=== PATIENT | female | born 1980 | race Caucasian/White ===

== ENCOUNTER → 2017-07-09 10:00 | Outpatient (CLI) | payer BC, SELFPAY ==
--- NOTE | 2017-07-09 08:45 | BRBX_PTH ---
PATIENT: YESENIA LAND LOC: [facility] U#:[id number] AGE/SX: 44/F ROOM: RE07/09/[address]: Dr. Joseph Zabala MD : 1980 BED: DIS: SPEC #: [id number] RECD: 07/09/17 09:44 STATUS: STAR EMILY #: [id number] MAUREEN: 07/09/17 08:[address]: Joseph Zabala DEPT: SURGICAL PATHOLOGY RECD BY: Alexsander Dominique ENTERED: 07/12/17 11:15 SP TYPE: BREAST BX OTHR DR: Dr. Danny Espinoza MD Tissues: Right breast, NOS Procedures: Surgery Specimen Level IV HEADER OPERATION: Ultrasound-guided needle core biopsy of right breast PRE-OP DIAGNOSIS: Abnormal mammogram of right breast R92.8 TISSUE SUBMITTED: Right breast needle core biopsy ISCHEMIC TIME: <30 seconds FIXATION TIME: 82.5 hours MICROSCOPIC DIAGNOSIS Right breast, ultrasound-guided needle core biopsy: Hyalinize fibroadenoma. Negative for atypia or malignancy. MULUGETA:kulwant 07/13/17 COMMENT Please make reference to previous specimen ([id number]) right breast tissue, core biopsy with diagnosis of fibroadenoma with focal fibrocystic changes. MICROSCOPIC DESCRIPTION Slides are reviewed. GROSS DESCRIPTION Received in fixative is one container labeled with the patient's name and designated right breast biopsy. The specimen consists of two elongated fragments of ford-yellow fibroadipose tissue that in aggregate measure 1.2 x 0.2 x 0.1 cm. The entire specimen is submitted in one cassette. / MULUGETA:kulwant 07/12/17 TC:1 CPT: 71127
== END ==
PROVIDERS: Family Provider Family Medicine; PCP Family Medicine; Visit Provider Surgery
DX: R92.8 Other abnormal and inconclusive findings on diagnostic imaging of breast (principal)
CPT/HCPCS: 88305

== ENCOUNTER → 2017-07-14 12:05 | Outpatient (CLI) | payer BC, SELFPAY ==
--- NOTE | 2017-07-14 12:07 | US_ITS ---
ULTRASOUND GUIDED CORE BIOPSY REASON FOR EXAM: Female, 36 years old. Ultrasound guided biopsy of the 1.1 cm hypoechoic nodule at the 11:00 position the breast at 5 cm from nipple. COMPARISON: None. TECHNIQUE: (All elements of maximal sterile barrier technique followed, including US elements as applicable) Under direct sonographic guidance, the surgeon performed 3 core biopsies of the hypoechoic nodule at 11:00 position the breast at 5 cm from nipple. US/US Breast Biopsy 1st Lesion IMPRESSION: Ultrasound guided core biopsy of a mass in the RIGHT breast at the 11:00 o'clock position breast at 5 cm from nipple without complication. Electronically Signed: Sharan Beach MD at 13:39 EDT Tel [phone], Service support ,
--- NOTE | 2017-07-14 12:30 | BRBX_PTH ---
PATIENT: YESENIA LAND LOC: [facility] U#:[id number] AGE/SX: 44/F ROOM: RE07/14/[address]: Dr. Joseph Zabala MD : 1980 BED: DIS: SPEC #: [id number] RECD: 07/14/17 12:30 STATUS: STAR EMILY #: [id number] MAUREEN: 07/14/17 12:[address]: Joseph Zabala DEPT: SURGICAL PATHOLOGY RECD BY: Petey Abdi ENTERED: 07/14/17 13:01 SP TYPE: BREAST BX OT DR: No Primary Care Phys Tissues: Right breast, NOS Procedures: Surgery Specimen Level IV HEADER OPERATION: Right breast ultrasound-guided biopsy PRE-OP DIAGNOSIS: Right breast lump TISSUE SUBMITTED: Right breast core tissue ISCHEMIC TIME: 1 minute FIXATION TIME: 7 hours MICROSCOPIC DIAGNOSIS Right breast lump, ultrasound-guided core biopsy: Fibroadenoma. AM:kulwant 6/1/18 MICROSCOPIC DESCRIPTION Slides are reviewed. GROSS DESCRIPTION Received in fixative is one container labeled with the patient's name and designated right breast biopsy. The specimen consists of multiple elongated fragments of ford-yellow fibroadipose tissue that in aggregate measure 1.2 x 0.5 x 0.1 cm. The entire specimen is submitted in one cassette. / SJ:rg 07/14/17 TC:5 CPT: 07528
--- NOTE | 2017-07-14 15:44 | PCM.OPRPT ---
Problem List (1) Abnormal mammogram of right breast Status: Acute Report of Operation Date of Procedure: 07/14/17 Pre-Operative Diagnosis: r92.8 abnormal mammogram the right breast Post-Operative Diagnosis: Same Surgery/Procedure Performed:: 38243 ultrasound-guided needle core biopsy of abnormal mammogram to right breast Type of Anesthesia:: Local Description of Procedure: Patient was brought into the ultrasound room. The right breast was ultrasound and the lesion was identified at the 11 o'clock position. The breast was prepped with chlorhexidine. 1% lidocaine plain was injected. A skin pham was made. Local was injected down to the lesion. Under ultrasound guidance 3 needle core biopsies were obtained of this lesion. Under ultrasound guidance a small titanium clip was placed. Sterile dressings were applied. Patient tolerated the procedure well. - Admit VTE Documentation VTE Present on Admission: No VTE Mechan Device Prophylaxis: None VTE Pharm Prophylaxis ordered?: No Reason prophylaxis not ordered:: Treatment Not Indicated
--- NOTE | 2017-07-14 15:47 | OP.PCM_ITS ---
Problem List (1) Abnormal mammogram of right breast Status: Acute Report of Operation Date of Procedure: 07/14/17 Pre-Operative Diagnosis: r92.8 abnormal mammogram the right breast Post-Operative Diagnosis: Same Surgery/Procedure Performed:: [id number] ultrasound-guided needle core biopsy of abnormal mammogram to right breast Type of Anesthesia:: Local Description of Procedure: Patient was brought into the ultrasound room. The right breast was ultrasound and the lesion was identified at the 11 o'clock position. The breast was prepped with chlorhexidine. 1% lidocaine plain was injected. A skin pham was made. Local was injected down to the lesion. Under ultrasound guidance 3 needle core biopsies were obtained of this lesion. Under ultrasound guidance a small titanium clip was placed. Sterile dressings were applied. Patient tolerated the procedure well. - Admit VTE Documentation VTE Present on Admission: No VTE Mechan Device Prophylaxis: None VTE Pharm Prophylaxis ordered?: No Reason prophylaxis not ordered:: Treatment Not Indicated
== END ==
PROVIDERS: Visit Provider Surgery
DX: D24.1 Benign neoplasm of right breast (principal)
CPT/HCPCS: 19083; 88305

== ENCOUNTER 2017-10-01 15:21 | Emergency (ER) | payer BC, SELFPAY ==
[2017-10-01 15:22] VITALS: BP 132/83; PULSE 128; RESP 18; TEMP 37.3; O2SAT 100; BMI 23.6
--- NOTE | 2017-10-01 15:49 | ED.VISSUMM ---
- ER Visit Summary Date of Service: 10/01/17 Chief Complaint: Right lower back pain History of Present Illness: The patient is a 36 F presenting with right lower back pain radiating down the back of her right thigh for the past 6 days. It started when she twisted to the side while washing dishes. She denies falls or direct trauma. She has no bowel bladder dysfunction or groin paresthesias. No lower extremity weakness or numbness. It is worse when she bends forward and better when she lays flat. Denies previous similar symptoms. She went to the urgent care earlier this week and was given a Medrol Dosepak and Flexeril. She took her last dose of Medrol today. This did help but the pain was somewhat worse today as she was weaning off of the Medrol. She denies fevers or history of back surgery. No recent weight loss. Physical Examination: Vitals are within normal limits except for slight tachycardia on arrival. This is improved on my examination. She does appear somewhat uncomfortable due to pain. She has paraspinal tenderness on the right in the lumbar region but no midline tenderness, erythema, or fluctuance. She has no overlying rash. She has normal strength and sensation in both lower extremities. Babinski's is negative. There is no clonus. Reflexes are normal and symmetric. Test Results: None performed Emergency Department Course and Treatment: She was given intramuscular Toradol and Norflex. She was improved on reexamination. She has no midline tenderness, erythema, fluctuance, fever, night sweats, or other signs/risk factors for paraspinal/epidural abscess. No evidence of cauda equina syndrome. She can stand on her toes and has no weakness in the lower extremities or groin paresthesias. I do not feel she needs an emergent MRI but I do feel that an outpatient MRI should be performed this week or next week if she is not improving. Her symptoms sound consistent with sciatica and she has no risk factors for more serious pathology. No pain in her thoracic region, chest pain, or other concerning symptoms. I will prescribe her Mobic and Zanaflex and she will use a heating pad as well. She will call her doctor on Tuesday morning and return to the emergency department if worse before then Treatment Plan: Disposition: Home stable condition Impression: Initial encounter right lumbar back pain with right-sided sciatica This note was generated with Dragon dictation software. It may contain incorrect words, spelling, and punctuation that were not noted in review of the chart prior to signing ED Disposition - Plan for ED Patient: Chief Complaint: Back Instructions: ED Sciatica Prescriptions: Meloxicam [Mobic] 15 mg PO DAILY #30 tablet Tizanidine HCl [Zanaflex] 4 mg PO TID #30 tablet Referrals: Danny Espinoza MD [NON-STAFF] -
== END 2017-10-01 16:52 | disposition home or self-care (01) ==
PROVIDERS: Emergency Provider Emergency Medicine
DX: M54.41 Lumbago with sciatica, right side (principal)
CPT/HCPCS: 99282

== ENCOUNTER → 2019-03-06 11:06 | Outpatient (CLI) | payer BC, SELFPAY ==
--- NOTE | 2019-03-06 11:17 | RAD_ITS ---
HISTORY: NECK AND LEFT SHOULDER PAIN TECHNIQUE: Cervical spine 3 views Number of images including paperwork: 3 COMPARISON: None FINDINGS: VERTEBRAE: No acute fracture. VERTEBRAL ALIGNMENT: No traumatic subluxation. DISKS AND JOINTS: Mild to moderate disc space narrowing at C5-6. SOFT TISSUES: Unremarkable paraspinous soft tissues. RAD/Cerv Spine 2 or 3 Views IMPRESSION: 1. No acute osseous abnormality. 2. Mild to moderate discogenic degenerative changes at C5-6. at 0656 Reported and signed by: Gladis Tyler MD Electronically Signed: Gladis Tyler MD at 6:56 EST Tel , Service support ,
== END ==
PROVIDERS: Referring Provider Nurse Practitioner; Visit Provider Nurse Practitioner
DX: R20.2 Paresthesia of skin (principal)
CPT/HCPCS: 72040

== ENCOUNTER 2019-04-05 09:00 | Outpatient (RCR) | payer BC, SELFPAY ==
--- NOTE | 2019-03-21 13:06 | HP.PTEVAL ---
Patient's Visit Information YESENIA LAND is a 38 year old F referred to Physical Therapy by [facility] with a diagnosis of CERVICAL RADICULOPATHY. Date of Evaluation: 03/21/19 Physical Therapist: Mike Haywood, PT, Cert MDT, OCS - Visit Plan Frequency: 2x /Week Duration: 4 Weeks Plan: PT INTERVENTIONS MANUAL THERAPY TRACTION,CP,MECKENZIE EX'S,POSTURAL EX'S - Subjective Findings: This 38 y/o female presents to physical therapy cervical radiculopathy. Pateint developed right shoulder pain with parathesia in fingers about 6 weeks ago. Patient stated pain intermittant with parathesia/tingling got worse. Patient repports symptoms worse after coughing 6 weeks ago. Pain located left cervical shoulder tricep to unlar forearm to fingers . Patient had x-rays C5-6 DDD ,melocicam. Patient stmptoms affects sleeping. C/O BE ,denies tinnnutus/nausea. 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 Patient pain affects job demands ,ADLS' and housework . Patient symptoms affects QOL. SOCIAL: 2 childer. VOCATION: [employer] - Pain Left Neck Pain Intensity (Out of 10): 2 Pain Intensity Range: 10 Left Shoulder Pain Intensity (Out of 10): 2 Pain Intensity Range: 10 - Objective POSTURE: mild foward posture. NEURO: C/O parathesia/tingling left arm,reflexes C5-6-7 2/3. PALPATION: unnremarkable. AROM: BUE WFL pain ER left shoulder. MMT: grossly 4/5. 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 CERVICAL ROM: flexion min loss,extension mod loss pain ,retraction min/mod loss pain ,protrusion min loss,rotation min/mod loss ,lateral flexion mod loss pain - Special Tests C/S Radiculapathy - Left Upper limb tension test: Positive C/S Radiculapathy - Right Upper limb tension test: Negative C/S Radiculapathy - Left Spurlings: Positive C/S Radiculapathy - Right Spurlings: Negative C/S Radiculapathy - Left Cervical distraction: Negative C/S Radiculapathy - Right Cervical distraction: Negative Sharp Herman: Negative Vertebral Artery Test: Negative Alar Ligament Test: Negative Cervical Sitting: Protrusion - Mechanical Response: No effect Cervical Sitting: Protrusion - Symptoms During Testing: Increases Cervical Sitting: Protrusion - Symptoms After Testing: Worse Comments:: arm Cervical Sitting: Retraction - Mechanical Response: No effect Cervical Sitting: Retraction - Symptoms During Testing: Increases Cervical Sitting: Retraction - Symptoms After Testing: Worse Comments:: arm Cervical Sitting: Retraction-Extension - Mechanical Response: No effect Cerv Sitting: Retraction-Extension - Symptoms During Testing: Increases Cerv Sitting: Retraction-Extension - Symptoms After Testing: Worse Comments:: arm Cervical Sitting: Sidebend Right - Symptoms During Testing: No effect Cervical Sitting: Sidebend Right - Symptoms After Testing: No effect Cervical Sitting: Sidebend Left - Mechanical Response: No effect Cervical Sitting: Sidebend Left - Symptoms During Testing: Increases Cervical Sitting: Sidebend Left - Symptoms After Testing: Worse Cervical Sitting: Rotation Right - Mechanical Response: No effect Cervical Sitting: Rotation Right - Symptoms During Testing: No effect Cervical Sitting: Rotation Right - Symptoms After Testing: No effect Cervical Sitting: Rotation Left - Mechanical Response: No effect Cervical Sitting: Rotation Left - Symptoms During Testing: Increases Cervical Sitting: Rotation Left - Symptoms After Testing: Worse Cervical Sitting: Flexion - Mechanical Response: No effect Cervical Sitting: Flexion - Symptoms During Testing: Increases Cervical Sitting: Flexion - Symptoms After Testing: Worse Comments:: arm - Goals Goal 1:: Independant with HEP Goal Time Frame: 2-4 Weeks Goal 2:: Patient to improve posture for ADLS. Goal Time Frame: 2-4 Weeks Goal 3:: Patient to decrease cervical radiculopathy by 50% or > to improve function Goal Time Frame: 4-6 Weeks Goal 4:: Patient improve cervical ROM for function of recovery. Goal Time Frame: 4-6 Weeks Goal 5:: Improve neck owestry score by 5 points or> to improve QOL. - Rehabilitation Potential Physical Therapy Diagnosis: Patient has cervical radiculopathy with + signs of possible derranagement with disc involvement with symptoms raditaing to hand/finger pain with motion and no postion or test movement to decrease symptoms thus bemifit from PT. May need MRI if symptoms dont get better. Rehabilitation Potential: Good - Anticipated Interventions Patient/Client Instruction: Educate patient on: Condition, Plan of Care For the Purpose of:: To decrease pain, To increase ROM, To improve muscle performance and motor function, To improve ability to perform ADL's, To increase tolerance to activity/condition/position, To improve ability of physical actions for home/community/work/leisure, To improve health of tissue, To decrease soft tissue restriction, To increase flexibility/ROM, To reduce risk of recurrence, To improve ability to perform tasks related to life management Therapeutic Exercise to Include: Strength training, Postural training, Flexibilty training, Active ROM, Cuco Exercises For the Purpose of:: To decrease pain, To increase ROM, To improve muscle performance and motor function, To improve ability to perform ADL's, To increase tolerance to activity/condition/position, To improve ability of physical actions for home/community/work/leisure, To improve health of tissue, To decrease soft tissue restriction, To increase flexibility/ROM Manual Therapy Techniques to Include: Mobilization Comment: CERVICAL TRACTION For the Purpose of:: To decrease pain, To increase ROM, To improve ability to perform ADL's, To improve health of tissue, To decrease soft tissue restriction TENS: Yes IF ES: Yes Cryotherapy (ice pack, ice massage): Yes Thermo therapy (hot pack): Yes Ultrasound (thermal/non thermal): Yes Intermittent cervical traction: Yes For the Purpose of:: To decrease pain, To increase ROM, To improve nutrient delivery to tissue, To increase oxygenation perfusion, To improve health of tissue, To decrease soft tissue restriction, To increase flexibility/ROM Thank you for the opportunity to evaluate your patient. For Medicare and Medicare HMO plans, please review the plan of care and approve it. It will need to be FAXED BACK to us at [phone] for Medicare purposes. For Medicare only, by signing this I certify the plan of care. Please let me know if there are questions or concerns regarding this plan of care. Physician Signature: Date:
--- NOTE | 2019-06-06 09:39 | HP.PT.NRP ---
YESENIA LAND was seen in my office for initial evaluation on 03/21/19. The following Plan of Care was established for this patient: Initial Frequency: 2x /Week Initial Duration: 4 Weeks Patient/Client Instruction: Educate patient on: Condition, Plan of Care For the Purpose of:: To decrease pain, To increase ROM, To improve muscle performance and motor function, To improve ability to perform ADL's, To increase tolerance to activity/condition/position, To improve ability of physical actions for home/community/work/leisure, To improve health of tissue, To decrease soft tissue restriction, To increase flexibility/ROM, To reduce risk of recurrence, To improve ability to perform tasks related to life management Therapeutic Exercise to Include: Strength training, Postural training, Flexibilty training, Active ROM, Cuco Exercises For the Purpose of:: To decrease pain, To increase ROM, To improve muscle performance and motor function, To improve ability to perform ADL's, To increase tolerance to activity/condition/position, To improve ability of physical actions for home/community/work/leisure, To improve health of tissue, To decrease soft tissue restriction, To increase flexibility/ROM Manual Therapy Techniques to Include: Mobilization Comment: CERVICAL TRACTION For the Purpose of:: To decrease pain, To increase ROM, To improve ability to perform ADL's, To improve health of tissue, To decrease soft tissue restriction TENS: Yes IF ES: Yes Cryotherapy (ice pack, ice massage): Yes Thermo therapy (hot pack): Yes Ultrasound (thermal/non thermal): Yes Intermittent cervical traction: Yes For the Purpose of:: To decrease pain, To increase ROM, To improve nutrient delivery to tissue, To increase oxygenation perfusion, To improve health of tissue, To decrease soft tissue restriction, To increase flexibility/ROM This patient was last seen in our office . Pertinent comments regarding their Physical therapy will appear below: Patient seen for PT for cervical radiculopathy ,Patient had MRI thus d/c. At this point I will be discontinuing this patient from physical therapy. I would be happy to see this patient again in the future if found appropriate by the physician. Thank you! Mike Haywood, PT, Cert MDT, OCS
== END 2019-04-05 19:00 | disposition home or self-care (01) ==
LOC: PT 09:00
PROVIDERS: PCP Nurse Practitioner; Referring Provider Nurse Practitioner; Visit Provider Nurse Practitioner
DX: M50.10 Cervical disc disorder with radiculopathy, unspecified cervical region (principal)
CPT/HCPCS: 97014; 97035; 97140; 97162; G0283

== ENCOUNTER → 2019-04-11 12:12 | Outpatient (CLI) | payer BC, SELFPAY ==
--- NOTE | 2019-04-11 14:20 | NEURO ---
NCS and/or EMG Patient Report Ordering Doctor: Darlene Galan DATE OF SERVICE: 04/11/19 Claritza Sanchez is a 38-year-old female who presents for electrodiagnostic testing of the left upper limb. Reports neck and left upper extremity pain for the past 4 months. Electrodiagnostic findings: Left median motor nerve demonstrates normal distal latency, amplitude and conduction velocity. Left ulnar motor response demonstrates normal distal latency and amplitude with an approximately 20% drop in conduction across the elbow. Normal sensory responses. On needle EMG, all muscles tested in the left upper limb showed no evidence of denervation with normal motor unit action potentials. Electrodiagnostic impression: This is an abnormal study in the left upper limb. 1. Electrodiagnostic findings demonstrate left-sided ulnar neuropathy, consistent with a mild cubital tunnel syndrome 2. No electrodiagnostic evidence is noted for median neuropathy or carpal tunnel syndrome. 3. There is no electrodiagnostic evidence for cervical radiculopathy. If there are any further questions, please do not hesitate to contact me.
== END ==
LOC: PSN 12:13
PROVIDERS: PCP Nurse Practitioner; Referring Provider Nurse Practitioner; Visit Provider Nurse Practitioner
DX: R20.2 Paresthesia of skin (principal)
CPT/HCPCS: 95886; 95909

== ENCOUNTER → 2019-04-17 12:32 | Outpatient (CLI) | payer BC, SELFPAY ==
--- NOTE | 2019-04-17 12:34 | MRI_ITS ---
STUDY: MRI CERVICAL SPINE WITHOUT CONTRAST REASON FOR EXAM: Female, 38 years old. Radiculopathy, left sided neck pain, left arm numbness TECHNIQUE: Standardized fat and water weighted pulse sequences were obtained in the sagittal and axial planes. COMPARISON: X-ray 03/06/2019 FINDINGS: Normal foramen magnum and brainstem-cervical cord junction. Normal craniovertebral junction. Normal anterior atlantoaxial articulation. Normal odontoid process. Normal cervical lordosis. Normal vertebral bodies and posterior osseous elements. C2-3: Normal endplates. Normal disc height, signal and morphology. Normal central canal and intervertebral neural foramina. C3-4: Normal endplates. Normal disc height, signal and morphology. Normal central canal and intervertebral neural foramina. C4-5: Normal endplates. Normal disc height, signal and morphology. Normal central canal and intervertebral neural foramina. C5-6: Mild broad disc osteophyte complex with loss of disc height produces mild spinal stenosis but no neural foraminal stenosis. C6-7: Normal endplates. Normal disc height, signal and morphology. Normal central canal and intervertebral neural foramina. C7-T1: Normal endplates. Normal disc height, signal and morphology. Normal central canal and intervertebral neural foramina. Normal cervical cord. Normal visualized soft tissue structures. MRI/Spine Cervical (Routine) IMPRESSION: Mild focal degenerative disc disease at C5/C6. Electronically Signed: Petey Barr MD at 14:05 EST Tel , Service support ,
== END ==
LOC: MRI 12:33
PROVIDERS: PCP Nurse Practitioner; Referring Provider Nurse Practitioner; Visit Provider Nurse Practitioner
DX: M54.12 Radiculopathy, cervical region (principal)
CPT/HCPCS: 72141

== ENCOUNTER → 2020-06-16 10:16 | Outpatient (CLI) | payer BC, SELFPAY ==
--- NOTE | 2020-06-16 10:27 | MRI_ITS ---
STUDY: MRI CERVICAL SPINE WITHOUT CONTRAST REASON FOR EXAM: Female, 39 years old. CERVICAL STENOSIS TECHNIQUE: Standardized fat and water weighted pulse sequences were obtained in the sagittal and axial planes. COMPARISON: 04/17/2019. FINDINGS: Normal foramen magnum and brainstem-cervical cord junction. Normal craniovertebral junction. Normal anterior atlantoaxial articulation. Normal odontoid process. Straightening of the C-spine curve. Normal vertebral bodies and posterior osseous elements. C2-3: Normal endplates. Normal disc height, signal and morphology. Normal central canal and intervertebral neural foramina. C3-4: Normal endplates. Normal disc height, signal and morphology. Normal central canal and intervertebral neural foramina. C4-5: Normal endplates. Normal disc height, signal and morphology. Normal central canal and intervertebral neural foramina. C5-6: Signal distortion artifacts due to metallic implant obliterating the vertebral endplates and the ventral half of the spinal cord in all sagittal sequences. Normal central canal and intervertebral neural foramina. C6-7: Normal endplates. Normal disc height, signal and morphology. Normal central canal and intervertebral neural foramina. C7-T1: Normal endplates. Normal disc height, signal and morphology. Normal central canal and intervertebral neural foramina. T1-T2: (Sagittal only). Normal endplates. Normal disc height, signal and morphology. Normal central canal and intervertebral neural foramina. T2-T3, T3-T4 and T4-5: (Sagittal only). Normal endplates. Minimal disc space height narrowing with normal disc signal and morphology. No ventral extradural defect. Normal central canal and intervertebral neural foramina. Normal cervical spinal cord in the axial projection the sagittal view has signal distortion and obliteration of the spinal cord at C5-C6 disc level. Spinal cord above and below C5-C6 disc space level are normal. Normal visualized soft tissue structures. MRI/Spine Cervical (Routine) IMPRESSION: 1. Metallic signal distortion of the spinal cord and vertebral endplates at C5-C6 disc level in all sagittal views. 2. Otherwise normal MRI cervical spine and the included upper thoracic spine. Electronically Signed: Viktor Tabares MD at 15:07 EDT , Service support ,
== END ==
PROVIDERS: PCP Nurse Practitioner; Referring Provider Nurse Practitioner; Visit Provider Nurse Practitioner
DX: M48.02 Spinal stenosis, cervical region (principal); M54.12 Radiculopathy, cervical region
CPT/HCPCS: 72141

== ENCOUNTER 2021-03-13 09:35 | Outpatient (CLI) | payer BC, SELFPAY ==
--- NOTE | 2021-03-13 09:40 | US_ITS ---
STUDY: THYROID ULTRASOUND REASON FOR EXAM: Female, 40 years old. GOITER TECHNIQUE: Ultrasound evaluation of the thyroid was performed with real-time and static ramirez-scale imaging. COMPARISON: None. FINDINGS: RIGHT LOBE: The right lobe of the thyroid gland is enlarged and measures 5.5 cm x 2.2 cm x 1.9 cm. There is a homogeneous echotexture. There are no demonstrated solid, cystic or complex lesions. LEFT LOBE: The left lobe of the thyroid gland is enlarged and measures 5.5 cm x 1.8 cm x 1.8 cm. There is a homogeneous echotexture. There is a 1.2 cm x 0.9 cm x 1.1 cm isoechoic solid nodule with cystic areas in the lower pole of the left lobe. This measures 1.2 cm x 0.9 cm x 1.1 cm. ISTHMUS: The isthmus measures 2 mm. The regional lymph nodes are normal. US/Thyroid IMPRESSION: Enlargement of both lobes of the thyroid gland. There is a 1.2 cm x 0.9 cm x 1.1 cm solid nodule with cystic areas in the lower pole of the left lobe. This may represent a colloid nodule. Correlation with nuclear medicine uptake and thyroid scan is recommended. Electronically Signed: Sharan Beach MD at 11:16 EST ,
== END 2021-03-13 23:59 | disposition short-term general hospital (02) ==
LOC: US 09:37
PROVIDERS: PCP Nurse Practitioner; Referring Provider Nurse Practitioner; Visit Provider Nurse Practitioner
DX: E04.9 Nontoxic goiter, unspecified (principal)
CPT/HCPCS: 76536

== ENCOUNTER 2021-04-01 12:28 | Outpatient (CLI) | payer BC, SELFPAY ==
--- NOTE | 2021-03-31 | FLU_PTH ---
PATIENT: YESENIA LAND [facility] U[id number] AGE/SX: 40/F ROOM: RE04/01/[address]: [address]ONIA [address] : 1980 BED: DIS: 04/01/2021 SPEC #: [id number] RECD: 04/01/21 12:18 STATUS: STAR REMildred #: [id number] MAUREEN: 03/31/21 00:[address]: Joseph Zabala DEPT: CYTOLOGY RECD BY: Meaghan Harris ENTERED: 04/02/21 10:28 SP TYPE: Fluid OTHR DR: TONIA St Tissues: A - Thyroid gland, NOS B - Thyroid gland, NOS Procedures: Special Stain Group II Surgery Specimen Level IV Cytospin Fluid Cytology Other Comments: @ Ordering doctor for SSII edited from FAREED to DR.DPEABO Cummings by WALDEMAR at 04/02/21 1508 @ Ordering doctor for SUIV edited from FAREED to DR.DPEABO Emiliano MEDEIROS at 04/02/21 1508 @ Ordering doctor for CYSPIN edited from FAREED to DR.DPEABO Emiliano MEDEIROS at 04/02/21 1508 @ Ordering doctor for CYOTHER edited from FAREED to DR.DPEABO Cummings by WALDEMAR at 04/02/21 1508 @ Submitting doctor edited from FAREED to DR.DPEABO Emiliano MEDEIROS at 04/02/21 1508 HEADER OPERATION: Left thyroid fine needle aspiration PRE-OP DIAGNOSIS: Uninodular goiter TISSUE SUBMITTED: A ? Left thyroid nodule fluid, B ? Left thyroid nodule x12 slides DIAGNOSIS CYTOLOGY A. Left thyroid nodule fluid, FNA (cytospin and cell block): Consistent with benign follicular/colloid nodule. B. Left thyroid nodule, FNA (smears): Consistent with benign follicular/colloid nodule. Adequate for evaluation. See comment. SJ:kulwant 04/03/2021 COMMENT B. Correlation with clinical, radiologic findings and appropriate follow up are necessary. CYTOLOGY STUDY Slides are reviewed. CYTOLOGY GROSS A - Received is 25 ml of cloudy ford fluid labeled with the patient's name and and designated per the requisition as left thyroid. Submitted for cytology preparation including cell block. B - Received are 12 smears labeled with the patient's name and designated per the requisition as left thyroid. Submitted for staining. / kulwant 04/02/2021 TC:5 CPT: 72978, 64823 x2
== END 2021-04-01 23:59 | disposition home or self-care (01) ==
LOC: LABSPEC 12:30
PROVIDERS: PCP Nurse Practitioner; Visit Provider Nurse Practitioner
DX: E04.1 Nontoxic single thyroid nodule (principal)
CPT/HCPCS: 88108; 88161; 88305; 88313

== ENCOUNTER → 2021-06-15 | Outpatient (CLI) | payer BC, SELFPAY ==
--- NOTE | 2021-06-15 15:06 | NEURO ---
NCS and/or EMG Patient Report Ordering Doctor: Alex Sauceda DATE OF SERVICE: 06/15/21 Indication: Intermittent pain radiating down the lateral left arm. Sensory disturbance of the lesser fingers. Evaluate for entrapment neuropathy. History of cervical spine surgery. Findings: Nerve conduction studies were performed in the left upper extremity. The left median motor study recording the abductor pollicis brevis showed a normal amplitude, normal distal latency and normal conduction velocity. The left ulnar motor study recording the abductor digiti minimi showed a normal amplitude, normal distal latency and normal conduction velocity. No conduction block or focal slowing was present across the elbow. The left median sensory response recording digit two showed a normal amplitude, latency and conduction velocity. The left ulnar sensory response recording digit five showed a normal amplitude, latency and conduction velocity. The left radial sensory response recording over the extensor snuff box showed a normal amplitude, latency and conduction velocity. Left median-ulnar lumbrical / interosseous motor latencies showed a normal median latency compared to the ulnar. Needle EMG of the left upper extremity and cervical paraspinal muscles was performed. No denervation was seen in any muscle. Complex repetitive discharges were seen in the lower cervical paraspinal muscles. The triceps demonstrated motor units which were large amplitude, long duration with reduced recruitment. The flexor carpi radialis revealed motor units which were slightly large and polyphasic with normal recruitment. All other sampled motor unit morphology, activation and recruitment patterns were normal. Impression: This is an abnormal study. There is electrophysiologic evidence of a chronic, left, C7 radiculopathy. There is no active denervation to suggest ongoing motor axon loss. There is no electrophysiologic evidence of a superimposed median or ulnar neuropathy in the left upper extremity. Maco Garcia D.O. Multi Select Codes Neurology Neurology Interp Codes: 44726-18 Musc test done w/n test comp (interp) and 89841-16 Nrv cndj test 7-8 studies (interp)
== END | disposition home or self-care (01) ==
LOC: PSN 14:09
PROVIDERS: PCP Nurse Practitioner; Visit Provider Orthopaedic Surgery
DX: G56.22 Lesion of ulnar nerve, left upper limb (principal)
CPT/HCPCS: 95886; 95910

== ENCOUNTER → 2021-08-21 | Outpatient (CLI) | payer BC, SELFPAY ==
--- NOTE | 2021-08-21 10:24 | MRI_ITS ---
STUDY: MRI CERVICAL SPINE WITHOUT CONTRAST REASON FOR EXAM: Female, 40 years old. arm numbness/tingling TECHNIQUE: Standardized fat and water weighted pulse sequences were obtained in the sagittal and axial planes. COMPARISON: 06/16/2020 FINDINGS: Normal foramen magnum and brainstem-cervical cord junction. Normal craniovertebral junction. Normal anterior atlantoaxial articulation. Normal odontoid process. There is straightening of the normal cervical lordosis. Normal vertebral bodies and posterior osseous elements. C2-3: Normal endplates. Normal disc height, signal and morphology. Normal central canal and intervertebral neural foramina. C3-4: Normal endplates. Normal disc height, signal and morphology. Normal central canal and intervertebral neural foramina. C4-5: Normal endplates. Normal disc height, signal and morphology. Normal central canal and intervertebral neural foramina. C5-6: Status post discectomy and interbody fusion with anatomic alignment with no spinal stenosis or neural foraminal stenosis which is unchanged. C6-7: Normal endplates. Normal disc height, signal and morphology. Normal central canal and intervertebral neural foramina. C7-T1: Normal endplates. Normal disc height, signal and morphology. Normal central canal and intervertebral neural foramina. Normal cervical cord. Normal visualized soft tissue structures. MRI/Spine Cervical (Routine) IMPRESSION: No change from 06/16/2020. Electronically Signed: Petey Barr MD at 15:39 EDT ,
== END | disposition home or self-care (01) ==
PROVIDERS: PCP Nurse Practitioner; Visit Provider Orthopaedic Surgery
DX: M54.12 Radiculopathy, cervical region (principal)
CPT/HCPCS: 72141

== ENCOUNTER 2022-10-27 15:00 | Outpatient (RCR) | payer OTHER, SELFPAY ==
--- NOTE | 2022-10-15 13:46 | HP.PTEVAL_ITS ---
Patient's Visit Information Visit Information Visit Information: YESENIA LAND is a 41 year old F referred to Physical Therapy by Dr. Brian Rueda DO with a diagnosis of CERVICAL DDD, STENOSIS AND RADICULOPATHY. Date of Evaluation: 10/15/22 Physical Therapist: Becky Yañez, PT, Cert MDT Visit Plan Frequency: 2-3x /Week Duration: 4-6 Weeks Plan: MH AND CP NEEDED. GENTLE POSTURE CORRECTION/STRENGTHENING, INSTRUCTION IN APPROPRIATE BODY MECHANICS AND ACTIVITY MODIFICATIONS. GENTLE CORDELL UE ROM, STRETCHING AND STRENGTHENING. HEP INSTRUCTION. Subjective Subjective: Work/Leisure: [employer]. 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 Disability: NO Present symptoms: CORDELL NECK PAIN. ONCE A DAY GETTING TINGLING ALL THE WAY DOWN R UE. L UE SX'S > R. CONSTANT L UE PAIN, NUMBNESS AND TINGLING ALL THE WAY DOWN L UE TO FINGERS. THE SX'S ALSO GO DOWN THE BACK OF HER ARM AND INTO HER SHLD BLADE ON THE LEFT. NUMBESS L NICOLE, TOP OF FOOT AND TOES. I FEEL OFF BALANCE A LITTLE BIT TOO . PATIENT REPORTS SHE IS L HAND DOMINANT AND FEELS WEAKNESS IN THE L ARM AND HAND. INTERMITTENT SHOOTING PAINS INTO L ELBOW. LEFT FACE NUMBNESS. Present since: ABOUT 12 MONTHS AGO. MORE CONSTANT IN LAST 4 WEEKS. Pain Scale: Worst - 7/10 Least - 4/10 Currently: 6/10 Getting Better, Getting Worse, or Staying the Same: Getting Worse. Commenced as a result of: NO APPARENT REASON. Symptoms at onset: NUMBNESS GOING DOWN L ARM AND L UE WEAKNESS Worse: PROLONGED SITTING, PROLONGED STANDING, LYING DOWN IN BED, MOVING LUE, MOVING NECK, HOLDING PURSE ON R SHLD, REACHING WITH EITHER UE. Better: ADVIL, HEAT, ICE Disturbed sleep: YES Previous history/Previous treatment: C56 DISCECTOMY AND FUSION [address] RAMYA TAPIA. NOV 2021 L ULNAR N. AREA DEBRIDEMENT SX BY DR. NIDIA SEPULVEDA AFTER EMG STUDY - SHE REPORTS THE SX HELPED RELIEVE IT BUT IT STILL ALWAYS HURT AND ALWAYS FELT WEAK AND HAS PROGRESSIVELY GOT WORSE. NOV 2021 PRIOR TO ULNAR N. SX TRIED NECK INJECTIONS WITHOUT SUCCESS. TRIED PT PRIOR TO FIRST SX WITHOUT SUCCESS. NO CHIROPRACTIC. This episode: ABOUT 4 WKS AGO SHE STATES THE PAIN BECAME UNBEARABLE SO SOUGHT ANOTHER OPINION FROM DR. RUEDA. EMG PENDING OCT 25 2022 OF L UE. RECENT NECK X- RAY - SEE BELOW. CURRENTLY ON GABAPENTIN - PATIENT REPORTS IT IS NOT WORKING. MRI ORDERED BUT DENIED PENDING OUTCOME OF PT PER PATIENT REPORT. Dizziness: YES Tinnitis: NO Nausea: YES - ESPECIALLY AT NIGHT WHEN PAIN INCREASES. Shortness of Breath: NO Difficulty Swollowing: NO Gait: INTERMITTENTLY FEELS OFF BALANCE . STATES SHE HAS STUMBLED BUT NOT FALLEN. Accidents: NO Unexplained weight loss: NO Imaging: MRI OF CERVICAL SPINE 08/21/[address] CORONADO UNCHARNGED FROM 06/16/20. 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 PMH/Recent major surgery: UNREMARKABLE. Objective Objective: Sitting Posture/Standing Posture: POOR. FH. RSH'S. NO TORTICOLLIS. Active Correction of posture: WORSE. PATIENT C/O INCREASED PULLING IN NECK AND SHLD BLADE AND DOWN ARM WITH POSTURE CORRECTION. Other Observations: INDEP GAIT AND TRANSFERS AND GUARDING OBSERVED WITH BOTH. NO LOB OR STUMBLING OBSERVED. NO AD'S. Sensory deficit: DECREASED LIGHT TOUCH SENSATION L LATERAL SHLD, LATERAL UPPER ARM, LATERAL FOREARM AND ULNAR BOARDER OF L HAND INTO L 3 DIGITS. R UE LIGHT TOUCH SENSATION GROSSLY INTACT. ROM deficit: R UE WFL BUT OVER HEAD MVMTS ARE SLOW AND GUARDED WITH C/O PULLING PAINS IN NECK AND L SHLD. PATIENT UNABLE TO ELEVATE L UE > 90 DEG. SHE HAS FULL L ELBOW FLEX/EXT, FULL FOREARM, WRIST AND HAND ROM BUT THESE MVMTS ARE GUARDED WELL. 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 PATIENT IS L HAND DOMINANT. R SHLD 4-/5, ELBOW 4/5. L SHLD 2/5, ELBOW 3+/5. Reflexes: R UE DTR'S 2/3. L UE BICEP 1/3 AND FOREARM ABSENT. Dural Signs: POSITIVE CORDELL UE'S. Cervical Mvmt Loss: Flex: MOD - INCREASES NECK PAIN AND L UE NUMBNESS. Pro: MOD - INCREASES NECK PAIN Ext: MOD - INCREASES NECK PAIN AND L UE NUMBNESS. Ret: ROSALES - INCREASES L UE NUMBESS RSB: MOD - PULLS AND HURTS DOWN THE BACK OF L UE. LSB: ROSALES - HURTS IN THE NECK AND DOWN THE ARM R Rot: MIN - PULLS IN L UE AND INCREASES NUMBNESS L Rot: MOD - L NECK PAIN AND PAIN DOWN L UE. PRODUCES L FACE NUMBNESS. Postural strength: POOR TREATMENT: INSTRUCTED PATIENT TO TRY TO AVOID PAIN AND PERIPHERALIZATION OF SX'S WITH EX AND ACTIVITY. INSTRUCTED PATIENT IN GENTLE AROM OF L UE TOLERATED BELOW 90 DEGREES TO HELP MAINTAIN ROM AND STIMULATE CIRCULATION. INSTRUCTED IN SUBMAX CERVICAL ISOMETRICS ALL PLANES X 3 REPS, 3 SEC EA, 3 TIMES A DAY TO STIMULATE CIRCULATION TOLERATED AND ABLE WITHOUT INCREASING SX'S. PATIENT COMMUNICATED A GOOD UNDERSTANDING OF ALL INSTRUCTIONS AFTER GIVEN TODAY. OTHER: PATIENT MAY BENEFIT FROM FURTHER IMAGING HER PAIN IS EASILY INCREASED WITH GENTLE TESTING OF HER NECK AND EXTREMITIES TODAY. Balance/Special Test Scores Oswestry Neck Score: 34 Goals Goal 1:: DECREASE C/O NECK AND CORDELL UE SX'S. Goal Time Frame: 4-6 Weeks Goal 2:: IMPROVE PERSONAL CARE, LIFTING, READING, SLEEP, WORK, DRIVING AND RECREATIONAL FUNCTION Goal Time Frame: 4-6 Weeks Goal 3:: INSTRUCT IN PROPHYLAXIS Goal Time Frame: 4-6 Weeks Anticipated Interventions Patient/Client Instruction: Educate patient on: Condition, Plan of Care and Risk Factors For the Purpose of:: To improve self management Therapeutic Exercise to Include: Strength training, Body mechanics, Postural training, Flexibilty training, Neuromotor development and Scapular Strength/Stabilization For the Purpose of:: To decrease pain, To increase ROM, To improve muscle performance and motor function, To increase tolerance to activity/condition/position and To improve ability of physical actions for home/community/work/leisure Cryotherapy (ice pack, ice massage): Yes Thermo therapy (hot pack): Yes For the Purpose of:: To decrease pain and To decrease swelling/inflammation Text: Thank you for the opportunity to evaluate your patient. For Medicare and Medicare HMO plans, please review the plan of care and approve it. It will need to be FAXED BACK to us at [phone] for Medicare purposes. For Medicare only, by signing this I certify the plan of care. Please let me know if there are questions or concerns regarding this plan of care. Physician Signature: Date:
== END 2022-10-27 19:00 | disposition home or self-care (01) ==
LOC: PT 15:00
PROVIDERS: PCP Nurse Practitioner Family; Referring Provider Orthopaedic Surgery; Visit Provider Orthopaedic Surgery
DX: M48.02 Spinal stenosis, cervical region (principal); M54.12 Radiculopathy, cervical region; M50.30 Other cervical disc degeneration, unspecified cervical region
CPT/HCPCS: 97110; 97162; 97530

== ENCOUNTER → 2022-12-31 | Outpatient (CLI) | payer OTHER, SELFPAY ==
--- NOTE | 2022-12-31 14:19 | US_ITS ---
STUDY: THYROID ULTRASOUND REASON FOR EXAM: Female, 42 years old. thyroid nodule TECHNIQUE: Ultrasound evaluation of the thyroid was performed with real-time and static ramirez-scale imaging. COMPARISON: 03/0507/03/2021 FINDINGS: RIGHT LOBE: The right lobe of the thyroid gland measures 5.7 x 2.3 x 2.0 cm. There is a homogeneous echotexture. There are no demonstrated solid, cystic or complex lesions. LEFT LOBE: The left lobe of the thyroid gland measures 5.2 x 1.9 x 1.7 cm. There is a homogeneous echotexture. There are 2 measurable nodules: 1. 5 x 5 x 2 mm. This nodule is mixed cystic and solid, hypoechoic, [id number]-[id number], smoothly marginated and contains no echogenic foci. TI-RADS points: 3. TI-RADS category: TR3. This nodule is mildly suspicious but no FNA or follow-up is necessary given the small size of this nodule. 2. 9 x 8 x 7 mm (previously measured up to 12 mm). This nodule is mixed cystic and solid, hypoechoic, [id number]-omao, smoothly marginated and contains no echogenic foci. TI-RADS points: 3. TI-RADS category: TR3. This nodule is mildly suspicious but no FNA or follow-up is necessary given the small size of this nodule. ISTHMUS: The isthmus measures 3 mm. The regional lymph nodes are normal. US/Thyroid IMPRESSION: 1. Dominant left thyroid lobe nodule has decreased in size. No specific follow-up recommendations according to ACR guidelines due to decreasing size and subcentimeter size of nodule on the current exam. Electronically Signed: Chuck Soriano MD ([place]) at 18:06 EST ,
== END | disposition home or self-care (01) ==
LOC: US 14:18
PROVIDERS: PCP Nurse Practitioner Family; Referring Provider Nurse Practitioner Family; Visit Provider Nurse Practitioner Family
DX: E04.1 Nontoxic single thyroid nodule (principal)
CPT/HCPCS: 76536

== ENCOUNTER → 2023-01-14 | Outpatient (CLI) | payer OTHER, SELFPAY ==
--- NOTE | 2023-01-14 14:06 | CT_ITS ---
STUDY: CT CERVICAL SPINE WITHOUT CONTRAST REASON FOR EXAM: Female, 42 years old. CERVICAL DISC DISPLACEMENT RADIATION DOSAGE (If Supplied By Facility): CTDIvol = ( 12.93 ) mGy, DLP = ( 288.51 ) mGycm TECHNIQUE: High resolution transaxial imaging was performed without contrast material. Sagittal and coronal images were reconstructed. Individualized dose optimization techniques were used for this CT. COMPARISON: Comparison is made with prior radiographs dated December 24, 2022. FINDINGS: Normal craniovertebral junction. Normal anterior atlantoaxial articulation. Normal odontoid process. There is straightening of the normal cervical lordosis. Normal vertebral bodies and posterior osseous elements. C2-3: Normal endplates. Normal disc height and morphology. Normal central canal and intervertebral neuroforamina. C3-4: Normal endplates. Normal disc height and morphology. Normal central canal and intervertebral neuroforamina. C4-5: Normal endplates. Normal disc height and morphology. Normal central canal and intervertebral neuroforamina. C5-6: The patient is status post fusion at the C5-C6 level. C6-7: Normal endplates. Normal disc height and morphology. Normal central canal and intervertebral neuroforamina. C7-T1: Normal endplates. Normal disc height and morphology. Normal central canal and intervertebral neuroforamina. Normal visualized soft tissue structures. CT/Spine Cervical without Contras IMPRESSION: Status post anterior fusion at the C5-C6 level. Straightening of the normal cervical lordosis. Electronically Signed: Sharan Beach MD at 14:57 EST ,
== END | disposition home or self-care (01) ==
PROVIDERS: PCP Nurse Practitioner Family
DX: M50.23 Other cervical disc displacement, cervicothoracic region (principal)
CPT/HCPCS: 72125

== ENCOUNTER → 2024-05-07 | Outpatient (CLI) | payer OTHER, SELFPAY ==
--- NOTE | 2024-05-07 18:56 | MRI_ITS ---
EXAM: MRI brain without contrast CLINICAL HISTORY: 43-year-old female, paresthesia and migratory symptoms. History of cervical spinal fusion. COMPARISON: None. TECHNIQUE: MRI of the brain was performed according to standard departmental protocol utilizing: Sagittal and axial T1, axial FLAIR, fat saturated fast spin echo, axial T2 imaging was obtained. FINDINGS: There are several (approximately 8) tiny supratentorial FLAIR hyperintense lesions, a couple of which are arranged perpendicular to the lateral ventricles. Additional subtle subcallosal Dot-Dash sign is likely present. The ventricles, sulci, and cisterns are age-appropriate in size. There is no evidence of intracranial bleed or focal infarction. There is no midline shift, mass effect, or extra-axial collection. No area of restricted diffusion are identified on DWI images. The basal ganglia, becka, pituitary, corpus callosum and cerebellum appear normal. Left maxillary sinus retention cyst or polyp. The visualized paranasal sinuses, mastoids, and orbits are otherwise unremarkable. The flow voids of the major intracranial vessels are patent. The visualized extracranial structures, within limits of technique, are otherwise remarkable. MRI/Brain without Contrast IMPRESSION: 1. Several tiny FLAIR hyperintense lesions and probable subcallosal dot dash si gn, most compatible with multiple sclerosis. However, multiple sclerosis is a diagnosis requiring dissemination in time and space with correlation to patient's symptoms, therefore follow-up imaging and neurologic consult is highly recommended. Diff erential diagnoses include microvascular ischemic changes, or very rare demyelinating diseases. 2. No acute intracranial hemorrhage or mass effect. Reading Location: [id number]
--- NOTE | 2024-05-07 18:56 | MRI_ITS ---
PROCEDURE: SPINE CERVICAL (ROUTINE) 05/07/2024 REASON FOR EXAM: 43-year-old female, post cervical fusion stenosis, paresthesia and migratory symptoms, numbness and tingling and pain throughout entire body. TECHNIQUE: Noncontrast cervical spine MRI. Coronal and Sagittal reconstruction series were provided. COMPARISON: MRI C-spine 01/14/2023. FINDINGS: Visualization is significantly limited by motion artifact and streak artifact from adjacent spinal hardware. Vertebrae: Prior discectomy and hardware placement at the approximate C5-7 vertebral levels. The cervical vertebral body heights are preserved. Bone marrow signal is unremarkable. Alignment: Normal. No spondylolisthesis. Spinal Cord: Cervical spinal cord is of normal size and signal intensities. Structures at the foramen magnum are unremarkable. C2-3: Normal endplates. Normal disc height, signal and morphology. No central canal or neural foraminal stenosis. C3-4: Normal endplates. Normal disc height, signal and morphology. No central canal or neural foraminal stenosis. C4-5: Normal endplates. Normal disc height, signal and morphology. No central canal or neural foraminal stenosis. C5-7: Obscured C7-T1: Normal endplates. Normal disc height, signal and morphology. No central canal or neural foraminal stenosis. MRI/Spine Cervical (Routine) IMPRESSION: Limited examination secondary to motion and streak artifact. Prior discectomy and hardware placement at the approximate C5-7 vertebral levels. No central or neural foraminal stenosis. Reading Location: [id number]
== END | disposition home or self-care (01) ==
PROVIDERS: PCP Nurse Practitioner Family; Referring Provider Psychiatry & Neurology Neurology; Visit Provider Psychiatry & Neurology Neurology
DX: G98.8 Other disorders of nervous system (principal)
CPT/HCPCS: 70551; 72141

== ENCOUNTER 2024-07-31 14:12 | Observation (INO) | payer OTHER, SELFPAY ==
--- NOTE | 2024-07-19 14:05 | EKG12_ITS ---
Test Reason : PREOP Blood Pressure : */* mmHG Vent. Rate : 80 BPM Atrial Rate : 80 BPM P-R Int : 116 ms QRS Dur : 70 ms QT Int : 378 ms P-R-T Axes : 70 55 33 degrees QTcB Int : 435 ms Normal sinus rhythm with sinus arrhythmia Normal ECG Confirmed by CARMINA ROQUE, LUPE ([id number]), non linear editor YESENIA GUZMAN ([id number]) on 07/23/2024 6:25:36 AM Referred By: Dg Díaz Confirmed By: LUPE GREWAL MD
[2024-07-19 15:10] LABS: Absolute Lymphocyte Count 1.48 X10^3/uL (0.83-4.51); Absolute Neutrophil Count 4.8 X10^3/uL (2.0-7.7); Basophil# 0.04 X10^3/uL; Basophil% 0.6 % (0-1); Eosinophil# 0.11 X10^3/uL; Eosinophils% 1.6 % (0-5); Hemoglobin 12.9 g/dL (12.0-15.0); Lymphocyte # 1.48 X10^3/ul (0.83-4.51); Lymphocyte % 21.3 % (19-41); Mean Corp Hgb Conc 33.1 g/dL (32-36); Mean Corpuscular Hgb 28.4 pg (27.0-32.0); Mean Corpuscular Volume 85.9 fL (81-99); Mean Platelet Vol. 10.4 fl (6.2-12.0); Monocyte# 0.48 X10^3/uL; Monocyte% 6.9 % (0-10); NRBC Flagged by Analyzer 0 % (0-5); Neutrophil # 4.81 X10^3/uL (2.7-7.7); Neutrophil % 69.2 % (47-70); Platelet Count 264 K/mm3 (150-450); RBC Distribution Width CV 12.2 % (11.6-14.6); RBC Distribution Width SD 38.2 fl (35.1-43.9); Red Blood Count 4.54 M/mm3 (4.2-5.4)
[2024-07-19 15:38] LABS: Hemoglobin A1c 5.5 % (<=5.6)
[2024-07-19 15:57] LABS: Hepatitis B Surface Antibody Nonreactive
[2024-07-19 16:00] LABS: Magnesium 2.3 mg/dL (1.5-2.2)
[2024-07-19 16:22] LABS: Anion Gap 15 (5-15); BUN 12 mg/dL (4-19); BUN/Creat Ratio 18.6 RATIO (10-20); Calcium,Total 9.1 mg/dL (7.6-11.0); Carbon Dioxide 19.5 mmol/L (21.0-32.0); Chloride 103 mmol/L (98-108); Creatinine, Serum 0.66 mg/dL (0.70-1.20); EST Glomerular Filtration Rate 111 (>60); Glucose 95 mg/dL (70-99); HIV Nonreactive (Nonreactive); Hepatitis C Antibody Nonreactive (Nonreactive); Sodium Level 137 mmol/L (133-145)
[2024-07-21 02:07] LABS: Hepatitis A AB, Total Negative (Negative)
[2024-07-31] VITALS (20 sets, daily range): BP systolic 93–154; BP diastolic 59–91; PULSE 65–94; RESP 13–18; TEMP 36.2–37.2; O2SAT 97–100; BMI 24.2
[2024-07-31] MEDS: Magnesium 1 GM over 15 mins IV (08:50)
[2024-07-31] MEDS: Lactated Ringers 1,000 ML 15 ML IV (08:52)
[2024-07-31] MEDS: Acetaminophen 500 MG Tablet 1000 MG PO (08:52)
--- NOTE | 2024-07-31 09:02 | PRE.ANES_ITS ---
ASA Classification* ASA Classification ASA Classification: 2 (Possible MS lesions on brain -- seeing [facility]. Hx of PONV, scopolamine patch ordered) Assessment & Plan Anesthesia* Anesthesia Assessment Anesthesia Assessment: Discussed sedation and/or anesthesia options, risks, benefits, and alternatives with patient/parents/legal guardian/POA. Questions invited. The patient/parents/legal guardian/POA seems to understand and agrees to proceed with anesthesia plan. Reviewed the physical assessment, medical history, allergy history and patient home medications list prior to surgery/procedure/anesthetic and documented any changes. Performed airway and anesthesia risk assessments. Anesthesia Type Anesthesia Type: General History Source History Obtained from:: Patient and Chart Anesthesia Focused Assessment* Temperature: 99.0 F Pulse Rate: 86 Blood Pressure: 154/91 Respiratory Rate: 18 Pulse Ox: 100 Airway Assessment Mouth opens: >3 cm Mallampati Score: II Teeth Condition: Intact Neck Range of motion (ROM): Full ROM Labs Anesthesia Preop lab: CBC WBC 7.0 K/mm3 (4.4-11.0) 07/19/24 14:16 07/19/24 RBC 4.54 M/mm3 (4.2-5.4) 07/19/24 14:16 07/19/24 Hgb 12.9 g/dL (12.0-15.0) 07/19/24 14:16 07/19/24 Hct 39.0 % (37-47) 07/19/24 14:16 07/19/24 Plt Count 264 K/mm3 (150-450) 07/19/24 14:16 07/19/24 CHEMISTRY Potassium 4.0 mmol/L (3.3-5.1) 07/19/24 14:16 07/19/24 Sodium 137 mmol/L (133-145) 07/19/24 14:16 07/19/24 Magnesium 2.3 mg/dL (1.5-2.2) H 07/19/24 14:16 07/19/24 BUN 12 mg/dL (4-19) 07/19/24 14:16 07/19/24 Creatinine 0.66 mg/dL (0.70-1.20) L 07/19/24 14:16 Glucose 95 mg/dL (70-99) 07/19/24 14:16 07/19/24 COAG Pre-Assessment Diagnosis/Proposed Procedure Planned Operative Procedure(s): Cervical Disc replacement C4-5, possible removal of hardware Anesthesia History 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 When Was Last Pacemaker Check QUESTION #4 FULL TEXT: You/Your Family Experience fever (hyperthermia) with Anesthesia Last Oral Intake Last Oral intake: Last Oral Intake NPO since 05:30 07/31/24 08:47 Meds taken in AM with sips of No 07/31/24 08:47 water? Meds patient instructed to take am of surgery PONV PONV - marine steamfitter: PONV - marine steamfitter Female Yes 07/17/24 08:06 HX of Motion Sickness Yes 07/17/24 08:06 HX of N/V After Surgery Yes 07/17/24 08:06 Non-Smoker Yes 07/17/24 08:06 Duration of Surgery greater Yes 07/17/24 08:06 than 60 minutes Number of Risk Factors 5 07/17/24 08:06 PONV Score Severe Risk 07/17/24 08:06 Height & Weight Height & Weight: Anesthesia: Height & Weight Height 5 ft 2 in 07/31/24 08:47 Weight: 60 kg 07/31/24 08:47 Body Mass Index (BMI) 24.2 07/31/24 08:47 Respiratory Assessment Respiratory Assessment - marine steamfitter: Respiratory Tract Infection Hx - marine steamfitter Hx Respiratory Tract Infection No 07/17/24 08:06 STOP Sleep Apnea STOP Sleep Apnea - marine steamfitter: STOP Sleep Apnea - marine steamfitter Hx Hypertension No 07/17/24 08:06 Hx Sleep Apnea No 07/17/24 08:06 CPAP No 03/19/15 11:18 BIPAP No 03/19/15 11:18 Do you snore loudly (louder No 07/17/24 08:06 than talking or can be heard Do you often feel tired/ No 07/17/24 08:06 fatigued/ sleepy during daytime? Has anyone observed you stop No 07/17/24 08:06 breathing during sleep? STOP Results Negative 07/17/24 08:06 QUESTION #5 FULL TEXT : Do you snore loudly (louder than talking or can be heard through closed doors)? 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 Specify any problems Hx of Preganancy in last 3 No 07/17/24 08:06 Months Nurse Filling Out Transfusion [facility] 07/17/24 08:06 & Questions: Date: 07/17/24 07/17/24 08:06 Time: 08:14 07/17/24 08:06 Patient unable to answer at this time (ie. confused, unrespo /Reproduction History /Reproductive History - marine steamfitter: /Reproductive Hx- marine steamfitter Hx Now No 07/17/24 08:06 Gestational Age (in weeks): EDC: Hx Hx Para Hx Section SAB No 07/17/24 08:06 Active Medications Active Medications: Current Medications Generic Name Dose Route Start Last Admin Trade Name Freq PRN Reason Stop Dose Admin Acetaminophen 1,000 mg 07/31/24 10:20 07/31/24 08:52 Acetaminophen 500 Mg Tablet PO 07/31/24 10:21 1,000 mg PREOP ONE Administration Dexamethasone Sodium Phosphate 8 mg 07/31/24 10:20 Dexamethasone 10 Mg/Ml Vial IV 07/31/24 10:21 INTRAOP ONE Dexamethasone Sodium Phosphate 4 mg 07/31/24 10:20 Dexamethasone 4 Mg/Ml Vial IV 07/31/24 10:21 POSTOP ONE Cefazolin Sodium 2 gm/ Sodium 110 mls @ 150 mls/hr 07/31/24 10:20 Chloride IV 07/31/24 11:03 INTRAOP ONE Tranexamic Acid 1,000 mg/ 110 mls @ 440 mls/hr 07/31/24 10:20 Sodium Chloride IV 07/31/24 10:34 INTRAOP ONE Tranexamic Acid 1,000 mg/ 110 mls @ 440 mls/hr 07/31/24 10:20 Sodium Chloride IV 07/31/24 10:34 INTRAOP ONE Magnesium Sulfate 1 gm/ 102 mls @ 408 mls/hr 07/31/24 10:20 07/31/24 08:50 Dextrose IV 07/31/24 10:34 408 mls/hr INTRAOP ONE Administration Lactated Ringer's 1,000 mls @ 15 mls/hr 07/31/24 08:30 07/31/24 08:52 IV 15 mls/hr .Q48H EDOUARD Administration Insulin Human Lispro 1 - 6 unit 07/31/24 10:20 Insulin Lispro 100 Unit/Ml Insuln.Pen SC 07/31/24 18:00 Q4H PRN PRN BG>/= 180, SEE PROTOCOL Protocol PFSH Medical History Wears glasses Alcohol use Restless legs Multiple sclerosis Former smoker History of pain when walking Encounter to establish care Preventative health care Neuropathy Lump of right breast Home Medications ?Medication ?Instructions ?Recorded ?Last Taken ?Type acetaminophen 325 mg tablet 325 mg PO ONCE PRN pain 07/29/24 History (Tylenol) Allergy/AdvReac Type Severity Reaction Status Date / Time cortisone Allergy Intermediate Rash Verified 07/31/24 08:46 Family History Father Diabetes Hypertension Brother Diabetes Aunt Breast cancer Mother Osteoarthritis Surgical History History of elbow surgery H/O neck surgery Hx of right breast biopsy Hx of dilation and curettage Hx of tonsillectomy Hx of eye surgery Hx of hysterectomy Hx of cholecystectomy Social History household members: spouse and children current occupational status: employed 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 pets and animals: Yes pets and animals: cat(s), dog(s) and fish Smoking Status: Former smoker second hand exposure: No alcohol intake: current alcohol intake frequency: holidays/special occasions only details: On avg 1 drink once or twice a month substance use type: does not use caffeine: Yes Type: coffee Number of servings: 1 and other Number of servings: 1 what type of physical activity do you participate in: none frequency: does not exercise seatbelt use: always do you feel safe at home: Yes Review of Systems (Anesthesia) ROS Narrative System reviewed and no additional complaints, except as documented. Physical Exam Const alert, oriented x3 and average body habitus Resp normal respiratory effort, normal air movement and clear to auscultation bilaterally Cardio regular rate, regular rhythm, no murmurs and diaphoretic
--- NOTE | 2024-07-31 09:20 | RAD_ITS ---
PROCEDURE: CERV SPINE 2 OR 3 VIEWS 07/31/2024 REASON FOR EXAM: CERVICAL DISC REPLACEMENT C4-5 TECHNIQUE: CERV SPINE 2 OR 3 VIEWS Fluoroscopy time 15 seconds. Radiation dose 1.24 mGy. 5 spots. COMPARISON: 08/01/2024. FINDINGS: Intraoperative fluoroscopic images. Disc spacer has been inserted in the interim in good position at C4-C5 level. RAD/Cerv Spine 2 or 3 Views IMPRESSION: Intraoperative fluoroscopic images. Unremarkable disc spacer at C4-C5 level. [facility]
--- NOTE | 2024-07-31 11:06 | HP.PCM_ITS ---
History and Physical Date of Admission: 07/31/24 MR#: [id number] Acct: [id number] Name: YESENIA LAND Rep #: [id number] : 1980 Provider: Dr. Dg Díaz MD Age/Sex: 43/F Location: [facility] [place] Status: Signed Intake Vital Signs 06/22/2508:28 07/11/2510:53 Height 5 ft 2.5 in 5 ft 2 in Intake Visit Reasons: cervical spine Chief Complaint: Pre-Op Cervical Spine Accompanied by: Is patient in pain?: Yes Pain scale (1-10): 4 Allergies cortisone Allergy (Intermediate, Verified 07/27/24 13:38) Rash Medications ?Medication ?Instructions ?Recorded ?Confirmed ?Type acetaminophen 325 mg tablet 325 mg PO ONCE PRN pain 05/18/24 5 History (Tylenol) PFSH Medical History Wears glasses Alcohol use Restless legs Multiple sclerosis Former smoker History of pain when walking Encounter to establish care Preventative health care Neuropathy Lump of right breast Surgical History History of elbow surgery H/O neck surgery Hx of right breast biopsy Hx of dilation and curettage Hx of tonsillectomy Hx of eye surgery Hx of hysterectomy Hx of cholecystectomy Family History Father Diabetes HypertensionBrother DiabetesAunt Breast cancerMother Osteoarthritis Social History household members: spouse and children current occupational status: employed 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 pets and animals: Yes pets and animals: cat(s), dog(s) and fish Smoking Status: Former smoker second hand exposure: No alcohol intake: current alcohol intake frequency: holidays/special occasions only details: On avg 1 drink once or twice a month substance use type: does not use caffeine: Yes Type: coffee Number of servings: 1 and other Number of servings: 1 what type of physical activity do you participate in: none frequency: does not exercise seatbelt use: always do you feel safe at home: Yes HPI cervical spine Details: This documentation accurately reflects the service provided and the decisions made by , Dr. Dg Díaz MD 07/27/24 [id number]. Part of today?s visit was documented by Shreya Salinas ATC, acting as scribe. YESENIA LAND is a 43 year old F here today for pre-op cervical disc replacement C4-5, possible removal of hardware DOS 07/31/2024. Patient rates her pain a 4/10 today. She states she has stopped taking Advil but continues to take the Tylenol. 06/22/24: YESENIA LAND is a 43 year old F here today for cervical spine pain. She complains of cervical spine pain that extends down in to her left shoulder. This has been going on for 15 months.She describes the pain as a sharp achy pain and at times she feels a shock like sensation.She has been experiencing numbness and tingling in both arms and both legs. She complains of numbness in her face and bilateral hands. She does experience muscle spasms in her hands. She does report recent issues with her balance, she feels off balance and has to catch herself so that she does not fall. She has tried oral steroids which were not helpful. She had a reaction to the injections in [address] Collins therefore she is not able to have anymore. She cannot use her left hand to bowl or play basketball. She does have proximal weakness in her arm/shoulder. She cannot carry anything that is heavy because it increases the pain. She drops items with her hands such as her keys. She reports two previous surgeries. The first was in April 2019 for a cervical disc replacement at C5-C6, the second surgery was a fusion at C6-C7 in March 2023. She has been in pain since this surgery. She did not have any issues swallowing after her surgeries.She denies diabetes or heart issues. She denies history of strokes. She does have nodules on her thyroid that are checked periodically with imaging. She had a brain scan recently that showed lesions con sistent with MS. She has an appointment in July at [facility] with a neurologist for further evaluation. Ortho Exam General General: Yes no acute distress Neurologic: Yes alert Psychologic: Yes reasonable and appropriate Spine SPINE TESTING CERVICAL THORACIC LUMBAR Musculoskeletal Strength 0=absent - 5=normal Details: Examination of the neck shows right lower and left upper ACDF incision scars from prior surgery. Neurologic facial upper extremity shows 5 x 5 bilateral shows normal sensations in all doctors. Adarsh's is positive on the left. Romberg's is positive. Tandem gait shows mild imbalance. There is hyperreflexia lower extremities. Coding Level of Care Code Off vis,est,level 4 Diagnoses Cervical myelopathy with cervical radiculopathy G95.9; M54.12 Fusion of spine, cervical region M43.22 S/P cervical disc replacement Z98.890 Time Spent (min) 35 Assessment and Plan Assessment and Plan (1) Cervical myelopathy with cervical radiculopathy: Status: Acute (2) Fusion of spine, cervical region: Status: Acute (3) S/P cervical disc replacement: Status: Acute Plan Again reviewed x-rays and MRI done previously. Imaging shows prior C5-6 disc replacement with good mobility and flexion-extension views, C6-7 ACDF with plate instrumentation with good evidence of fusion. There is adjacent segment degeneration with a central disc herniation at C4-5 causing cord compression with cord edema. Significant artifact from the disc replacement prosthesis not iced at C5-6 level. Again explained to her imaging findings in detail. There is a disc herniation at C4-C5 with pressure on the spinal cord. She has developed myelopathy with radiculopathy. We discussed that a CT myelogram would give a better picture at her previous surgical sites but this is an invasive test. The patient has decided not to proceed with that at this time. Since patient has developed new onset myelopathy, explained to her that x-rays showed myelopathy which is typically that a progression and surgical treatment is recommended. We discussed a possible fusion versus disc replacement at C4-C5 and risks benefits and alternatives to each. After a lengthy discussion with the patient we have decided to proceed with the C4-5 disc replacement. We discussed that she may have issues swallowing after the surgery due to the scar tissue from previous surgeries. We discussed restrictions after surgery. We discussed that the spinal cord is unforgiving and that there is no guarantee that this will be completely reversible with surgery. The issues from bruising of the spinal cord will improve after surgery. ENT consult was completed which shows both vocal cords are moving well. Explained risk benefits and alternatives of surgery. The risks include but are not limited to infection, bleeding, injury to nerves and vessels, dysphagia, dysphonia, hematoma formation, need for further surgery, Cassandra syndrome, recurrent laryngeal nerve injury, persistent pain, persistent numbness and weakness, DVT, pulm embolism, pneumonia, atelectasis, prosthesis malposition, adjacent segment degeneration, spinal cord injury, nerve root injury. Patient understands and agrees to proceed with surgery. Consent was signed.
[2024-07-31] MEDS: Cefazolin 2 GM in 0.9% Normal Saline (100mL Bag) 100 ML IV ×2 (11:59→20:53)
[2024-07-31] MEDS: dexAMETHasone 10 MG/ML Vial 8 MG IV (12:04)
[2024-07-31] MEDS: TRANEXAMIC ACID 1,000 MG in 0.9% Normal Saline (100mL Bag) 100 ML 440 MG IV ×2 (12:10→13:41)
--- NOTE | 2024-07-31 14:08 | OP.PCM_ITS ---
Procedures Musculoskeletal [id number]: Other Procedure See Report Operative Report (Standard) Operative Information Date of Procedure: 07/31/24 Pre-Operative Diagnosis: C4-5 disc herniation, myeloradiculopathy, prior C5-6 disc replacement, prior C6-7 ACDF Post-Operative Diagnosis: Same Surgery/Procedure Performed: C4-5 cervical disc replacement, revision anterior approach punching machine operator: Yes Auto Dealership Porter: Ely Salas Tasks completed by asset protection assistant: Closing, Removing tissue, Hemostasis: Electrocautery and Retracting Type of Anesthesia: General RN Documented Start/Stop Times: Operation Date: 07/31/24 10:20 Case Time Into Pre-Op 07/31/24 08:19 Out of Pre-Op 07/31/24 11:56 Anesthesia Start 07/31/24 11:59 Into Room 07/31/24 11:59 Procedure Start 07/31/24 12:30 Procedure Start Time: 12:30 Procedure Stop Time: 14:12 Select all DRAINS/GRAFTS/IMPLANTS that apply: Drains Drain details: Imtiaz and Prosthetic device Prosthetic device details: ZimVie Mobi-C cervical disc replacement prosthesis Estimated Blood Loss: 20 cc Specimen collected: No Description of surgery: Preoperative diagnosis: C4-5 disc herniation with radiculomyelopathy, prior C5-6 disc replacement, prior C6-7 ACDF Postoperative diagnosis: Same Name of procedure: C4-5 anterior cervical disc replacement, revision anterior approach - Cervical disc replacement C4-5, CPT code 45402 Attending surgeon: Dg Díaz M.D. Anesthesia: Gen. endotracheal Estimated blood loss: 20 mL Complications: None Instrumentation used: [employer] Mobi-C cervical disc replacement implants Indications: The patient is a pleasant 43-year-old lady who presented with symptoms of neck pain, progressive weakness and dexterity issues, left worse than right radicular pain. Imaging revealed C4-5 central right paracentral soft disc herniation with cord compression without cord signal changes, prior C5-6 disc replacement, prior C6-7 ACDF. In order to halt the progression of myelopathy, patient requested surgical intervention. All risks and benefits of the procedure were explained to the patient. The risks include but are not limited to infection, bleeding, injury to nerves and vessels, vertebral artery injury, spinal cord injury, paralysis, vocal cord paralysis, injury to esophagus, need for further procedures, adjacent segment degeneration, heterotopic ossification, implant loosening, implant failure, DVT, pulmonary embolism, cardiopulmonary event, etc. Procedure: The patient was identified in the preoperative suite using unique patient identifiers. Skin was marked consent was taken and all questions were answered. The patient was then brought back to the operative room and a timeout was performed. General endotracheal anesthesia was given. Intraoperative neuro monitoring leads were applied. The patient was carefully positioned supine on a regular OR table. A lateral x-ray with a C-arm was done to identify the level and to define the incision. The anterior neck was then prepped and draped in the usual fashion. A final timeout was then performed. Previous incisional scars noticed on the left at C5-6 and to the right at C6-7. Decision was made to go to the right for a revision anterior approach to C4-5. A transverse skin incision was then taken to the right of midline. Subcutaneous tissue was then divided with Bovie. Platysma was identified and cut transversely with scissors. The fascial interval between the sternocleidomastoid and the larynx was developed. Omohyoid was identified and mobilized medially and inferiorly. Carotid sheath was laterally while the esophagus with the larynx was retracted medially to reach the prevertebral fascia. Significant scarring was noticed in the prevertebral space. C5-6 disc replacement hardware was identified and the disc above was exposed. All prevertebral layers of fascia were bluntly and to some extent sharply dissected and a [place] pin was placed into the presumed C5 body. A lateral C-arm image was used to confirm the correct level. Once this was done longus coli muscle was elevated on both sides at and above and below C4-5 discs. Shadow line retractors were then placed with great care to protect the esophagus. A long handle knife was then used to perform annulotomy at C4-5. Disc fragments were removed with the pituitary. [place] pins were placed in C4 and C5 for disc distraction. AP view confirmed midline placement of [place] pins. Curettes were utilized to remove cartilage from the endplates. Discectomy was performed laterally up to the uncovertebral joints. Adequate decompression was performed, PLL was thinned out and resected. Foramina were decompressed without taking down the uncovertebral processes. Once the disc space was prepared, trials of various sizes were utilized. Thorough irrigation was given. Mobi-C anterior cervical disc replacement implant of size 13 x 15 mm with 5 mm height was then placed under fluoroscopic guidance. Adequate positioning was noticed on AP and lateral views. Thorough irrigation was again given. Hemostasis was achieved with FloSeal and bipolar cautery. Hewitt drain was placed. Closure was done with 3-0 Vicryl for the platysma and subcutaneous tissue layers and 4-0 Monocryl for the skin. Closure was done around the drain. Steri-Strips were applied and dressing was done with 4 x 4 gauze and Tegaderm. A cervical collar was then applied. The patient was then woken up from anesthesia extubated and taken to PACU in stable condition. Intraoperative neuro monitoring was performed throughout this procedure. Motor evoked potentials were run periodically. All potentials remained at baseline throughout the procedure. I was present for the entire surgery and performed the surgery myself. Patient Account Representative Ely Salas PA-C. My physician pharmaceutical assistant was a vital part of this case. They were important in appropriate retraction during the case, and protection of soft tissues during the procedure. Their intimate knowledge of the case and my steps aided in safe and expedient completion of the procedure as well as appropriate position of the patient during the surgery. They were also vital in assisting with closure under my direct supervision. Surgical Findings: See operative note Complications Complications: No
--- NOTE | 2024-07-31 14:28 | PCM.POST.ANE ---
Anesthesia: Postop Eval I Current Vital Signs Temperature: 97.6 F Pulse Rate: 79 Blood Pressure: 110/70 Respiratory Rate: 18 Pulse Ox: 99 Oxygen Delivery Method: Nasal Cannula Oxygen Flow Rate (L/min): 3 Assessment Airway patent: Yes Spontaneous unlabored respirations: Yes Mental status: Awake and Calm nausea: No Vomiting: No Anesthesia Complication: No Fluid Hydration Crystalloid volume administer (ml): 1,100 Total IV fluid infused: 1,100 Progress Note Post-operative progress note: VSS see PACU notes for details Anesthesia document: Postop Eval 1 completed: Yes
[2024-07-31] MEDS: Ketorolac 15 MG/ML Vial IV (14:41)
--- NOTE | 2024-07-31 15:49 | POSTOPAN2_ITS ---
Anesthesia Postop Eval I Sum Postop Eval Completion status Anesthesia document: Postop Eval 1 completed: Yes Anesthesia Postop Eval I Summary Anesthesia Postop Eval I Summary: Anesthesia Postop Eval I: Assessment Summary Airway patent Yes 07/31/24 14:28 [email or web address] Spontaneous unlabored Yes 07/31/24 14:28 [email or web address] [email or web address] respirations Mental status Awake,Calm 07/31/24 14:28 [email or web address] nausea No 07/31/24 14:28 [email or web address] Vomiting No 07/31/24 14:28 [email or web address] Anesthesia Postop Eval I: Fluid Summary Crystalloid volume administer 1,100 07/31/24 14:28 [email or web address] (ml) Colloids volume administered ( ml) Blood Product volume administered (ml) Total IV fluid infused 1,100 07/31/24 14:28 [email or web address] Anesthesia Postop Eval I: Summary Notes Anesthesia Complication No 07/31/24 14:28 [email or web address] Anesthesia Complication Comment: Post-operative progress note VSS see PACU notes 07/31/24 14:28 [email or web address] for details Anesthesia: Postop Eval II Evaluation Mental status: Awake Pain Level: 0 nausea: No Vomiting: No Complications Anesthesia Complication: No
--- NOTE | 2024-07-31 15:49 | PCM.POSTANE2 ---
Anesthesia Postop Eval I Sum Postop Eval Completion status Anesthesia document: Postop Eval 1 completed: Yes Anesthesia Postop Eval I Summary Anesthesia Postop Eval I Summary: Anesthesia Postop Eval I: Assessment Summary Airway patent Yes 07/31/24 14:28 [employer] Spontaneous unlabored Yes 07/31/24 14:28 [employer] respirations Mental status Awake,Calm 07/31/24 14:28 [employer] nausea No 07/31/24 14:28 [employer] Vomiting No 07/31/24 14:28 [employer] Anesthesia Postop Eval I: Fluid Summary Crystalloid volume administer 1,100 07/31/24 14:28 [employer]K (ml) Colloids volume administered ( ml) Blood Product volume administered (ml) Total IV fluid infused 1,100 07/31/24 14:28 [employer] Anesthesia Postop Eval I: Summary Notes Anesthesia Complication No 07/31/24 14:28 [employer]K Anesthesia Complication Comment: Post-operative progress note VSS see PACU notes 07/31/24 14:28 [employer]K for details Anesthesia: Postop Eval II Evaluation Mental status: Awake Pain Level: 0 nausea: No Vomiting: No Complications Anesthesia Complication: No
--- NOTE | 2024-07-31 17:37 | CON.PCM.HO_ITS ---
Assessment & Plan Assessment/Plan (1) S/P cervical disc replacement: PLAN: Plan Patient is a 43-year-old female who presented to [facility] on 07/31/24 for planned cervical spine procedure. Medicine consulted postoperatively for medical management. 1. 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 Orthopedic surgery primary. S/p C4-[address] replacement with Dr. Díaz on 07/31. Tolerated procedure well, no intraoperative complications. Pain control, DVT prophylaxis and further management per orthopedics. PT/OT/case management consulted. Notably patient has no other medical issues and takes no home medications, so no other needs from a medicine standpoint at this time. DVT prophylaxis: Per orthopedics Total clinical time spent by myself addressing the patient's medical issues, reviewing all the data, and collaborating with patient's care team: 25 minutes. HPI Consult Data Date of Consult: 07/31/24 HPI Narrative Reason for Consultation: Postoperative medical management HPI Narrative: YESENIA LAND, is a 43 F who presented to [facility] on 07/31/2024 for planned cervical spine procedure. Medicine consulted postoperatively for medical management. Patient had C4-5 cervical disc replacement with revision procedure done with Dr. Díaz today. Tolerated procedure well, no intraoperative complications noted. I saw the patient at bedside later this afternoon, and daughter present. Patient was fatigued appearing and mildly uncomfortable appearing due to neck pain and reported nausea. She did have neck brace in place. Stated she had just been given IV medication for her nausea. Has not had any vomiting yet. Stated this was her third cervical spine procedure and she did not have significant postoperative nausea after the first 2 so this is surprising to her. She was given a scopolamine patch for the nausea as well. She otherwise reports generalized neck discomfort without sharp pain. Denies any radiculopathy. Feels fatigued but denies any other acute pain or discomfort. [facility] Medical History Wears glasses Alcohol use Restless legs Multiple sclerosis Former smoker History of pain when walking Encounter to establish care Preventative health care Neuropathy Lump of right breast Home Medications ?Medication ?Instructions ?Recorded ?Last Taken ?Type acetaminophen 325 mg tablet 325 mg PO ONCE PRN pain 07/29/24 History (Tylenol) Allergy/AdvReac Type Severity Reaction Status Date / Time cortisone Allergy Intermediate Rash Verified 07/31/24 08:46 Family History Father Diabetes Hypertension Brother Diabetes Aunt Breast cancer Mother Osteoarthritis Surgical History History of elbow surgery H/O neck surgery Hx of right breast biopsy Hx of dilation and curettage Hx of tonsillectomy Hx of eye surgery Hx of hysterectomy Hx of cholecystectomy Social History household members: spouse and children current occupational status: employed 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 pets and animals: Yes pets and animals: cat(s), dog(s) and fish Smoking Status: Former smoker second hand exposure: No alcohol intake: current alcohol intake frequency: holidays/special occasions only details: On avg 1 drink once or twice a month substance use type: does not use caffeine: Yes Type: coffee Number of servings: 1 and other Number of servings: 1 what type of physical activity do you participate in: none frequency: does not exercise seatbelt use: always do you feel safe at home: Yes ROS Constitutional Constitutional: Reports fatigue; Denies chills, fever(s) or weakness Eyes Eyes: Denies change in vision Cardiovascular Cardiovascular: Denies chest pain Respiratory/Chest Respiratory/Chest: Denies shortness of breath at rest Gastrointestinal Gastrointestinal: Reports nausea; Denies abdominal pain or vomiting Musculoskeletal Musculoskeletal: Denies arthralgias or myalgias Neurologic Neurologic: Denies focal weakness, headache(s), numbness, paresthesias or tingling Physical Exam Const alert, oriented x3, no apparent distress and average body habitus Constitutional Narrative: Younger middle-aged female, mildly fatigued appearing, mildly uncomfortable appearing due to nausea and neck pain, neck brace in place, otherwise sitting up in bed and answering questions appropriately, in no acute distress. General Appearance: cooperative HEENT normocephalic, head/scalp atraumatic, hearing grossly normal bilaterally, nasal mucous membranes and turbinates normal and moist oral mucous membranes Eyes PERRL, EOMs intact bilaterally and conjunctivae normal Neck Neck Narrative: Neck brace in place. Chest inspection of chest normal Resp normal respiratory effort, normal air movement, no use of accessory muscles and clear to auscultation bilaterally Cardio regular rate, regular rhythm, no murmurs and peripheral pulses 2+ throughout GI normal to inspection, nondistended, normoactive bowel sounds, soft to palpation, non-tender and non-distended Back/Spine normal ROM Extremity normal to inspection, full ROM and no pedal edema Skin no rashes or lesions noted Neuro no focal motor deficits and no sensory deficits noted Speech: speech normal Psych mental status grossly normal Lab / Micro Data 07/19/24 14:16 07/19/24 14:16 Charges/Coding Visit Charges Inpatient E&M: 86984 Subs Hosp L1
[2024-07-31] MEDS: HYDROcodone Bitartrate/Apap 5/325 Tablet PO (17:59)
[2024-07-31] MEDS: dexAMETHasone 4 MG/ML Vial IV (17:59)
[2024-07-31] MEDS: Methocarbamol 500 MG Tablet 1000 MG PO ×2 (18:00→22:55)
[2024-07-31] MEDS: Ensure Surgery 237 ML LIQUID PO (18:00)
[2024-07-31] MEDS: 0.9% Saline Lock 10 ML Syringe IV (18:40)
[2024-07-31] MEDS: Ondansetron 4 MG/2 ML Vial IV (18:40)
[2024-07-31] MEDS: 0.9% Normal Saline (250mL Bag) 250 ML 15 ML IV (20:53)
[2024-07-31] MEDS: proMETHazine 25 MG/ML Syringe IM (21:04)
--- OUTSIDE RECORDS SUMMARY | 2024-08-01 00:19 | XMS RPT_ITS | CCD ---
Author Organization [facility] Care Team Providers Care Corporate Treasurer Name Role Phone TameraDarlene valverde Unavailable Angelique North Unavailable Kamar Carpio Unavailable Vinicio Ramires Unavailable Ashok Miramontes Unavailable Keon Bishop Unavailable Olga Emerson Unavailable Victorino Garcia Unavailable Unavailable Unavailable Unavailable Ciabram SABADarlene Unavailable Angelique North Unavailable Kamar Carpio MD Unavailable Dr. Vinicio Ramires MD Unavailable Ashok Miramontes Unavailable Farshad ROQUE, Joseph Ramos Unavailable Dr. Keon Bishop Unavailable Olga Emerson DO Unavailable Gravius WATER METER INSTALLER, Mallory Unavailable Unavailable Slatamela LOPEZN, Precious Unavailable Unavailable Victorino Garcia LPN Unavailable Unavailable Unavailable Unavailable Ciesa LABORER [employer], LABORER [employer] Darlene Primary Care Provider Ciesa [employer], LABORER [employer] Darlene Referring Provider Dr. Alex Coronado Attending Provider Dr. Lennox Kincaid Attending Provider Dr. Alex Coronado Other Provider Dr. Damon Garcia Attending Provider Dr. Alex Coronado Referring Provider Dr. Narayan Santiago Attending Provider Ciesa LOCAL GOVERNMENT LEGISLATOR, Hugo Primary Care Provider Ciesa LOCAL GOVERNMENT LEGISLATOR, Hugo Primary Care Provider DAVE SEPULVEDA Attending Unavailable DAVE SEPULVEDA Admitting Unavailable CIESA, HUGO Primary Care Unavailable Ciesa LOCAL GOVERNMENT LEGISLATOR, Hugo Primary Care Provider Ciesa, Darlene Unavailable Unavailable Ciesa, Darlene Unavailable RYDER Chilel LPN Unavailable Unavailable Sav LOCAL GOVERNMENT LEGISLATOR, Giuseppe Unavailable Sav, LABORER [employer] Giuseppe Primary Care Provider Dr. Lennox Kincaid Attending Provider Ciesa LOCAL GOVERNMENT LEGISLATOR, Hugo Primary Care Provider Ciesa LOCAL GOVERNMENT LEGISLATOR, Hugo Primary Care Provider Sav LOCAL GOVERNMENT LEGISLATOR, Giuseppe Primary Care Provider Ciesa LOCAL GOVERNMENT LEGISLATOR, Hugo Primary Care Provider Sav LABORER [employer], Giuseppe Primary Care Provider Dr. Narayan Connelly MD Attending Provider Care Physician, No Primary Referring Provider Un available Dr. Narayan Connelly MD Referring Provider PARKER LEIVA Attending Unavailable CIESA, HUGO Primary Care Unavailable KIKIPARKER Referring Unavailable CIESA, HUGO Primary Care Unavailable SAV, GIUSEPPE Primary Care Unavailable MATHEW MOEIN Referring Unavailable SAV, GIUSEPPE Primary Care Unavailable ANGEL ORELLANA Attending Unavailable CORETTA PARKINSON Referring Unavailable LANEY CARROLL Attending Unavailable SAV, GIUSEPPE Primary Care Unavailable PARKINSONCROETTA SHEETS Referring Unavailable SAV, GIUSEPPE Primary Care Unavailable SAV, GIUSEPPE Primary Care Unavailable CIESA, HUGO Primary Care Unavailable MARIAM WEAVER Referring Unavailable CIESA, HUGO Primary Care Unavailable MARIAM WEAVER Referring Unavailable O'FRANKOCORETTA ROBERTS Attending Unavailable O'FRANKOCORETTA ROBERTS Attending Unavailable MARIAM WEAVER Referring Unavailable CIESA, HUGO Primary Care Unavailable KIKIPARKER Feliz S Referring Unavailable CIESA, HUGO Primary Care Unavailable Sav LABORER [employer], Giuseppe Referring Provider Laine ROQUE, Dr. Mc Attending Provider [phone] Arjun ROQUE, Dr. Conte Attending Provider Codi ROQUE, Dr. High Attending Provider [phone] Laine ROQUE, Dr. Mc Primary Care Provider Laine ROQUE, Dr. Mc Referring Provider [phone] Jeff Castellon Attending Provider Ashlie ROQUE, Dr. Morse Attending Provider Arjun ROQUE, Dr. Conte Referring Provider Oleghe, Efewongbe Primary Care Unavailable Arjun, Dg Attending Unavailable Arjun Dg Referring Unavailable DíazDg Consulting Unavailable Oleghe, Efewongbe Attending Unavailable Sav, Giuseppe Referring Unavailable Sav, Giuseppe Primary Care Unavailable Sav, Giuseppe Referring Unavailable Sav, Giuseppe Primary Care Unavailable Narayan Connelly Attending Unavailable Sav, Giuseppe Referring Unavailable Sav, Giuseppe Primary Care Unavailable Ronen Díazag Attending Unavailable Lennox Kincaid Attending Unavailable Sav, Giuseppe Primary Care Unavailable Oleghe, Efewongbe Referring Unavailable Jeff Castellon Attending Unavailable Oleghe, Efewongbe Primary Care Unavailable Sav, Giuseppe Referring Unavailable Oleghe, Efewongbe Primary Care Unavailable Ronen Díazag Attending Unavailable Narayan Connelly Attending Unavailable Care Physician, No Primary Referring Unava ilable Sav, Giuseppe Primary Care Unavailable Oleghe, Efewongbe Primary Care Unavailable Díaz, Dg Attending Unavailable Díaz, Dg Referring Unavailable Díaz, Dg Admitting Unavailable Narayan Connelly Attending Unavailable Narayan Connelly Referring Unavailable Sav, Giuseppe Primary Care Unavailable Mini Dailey Attending Unavailabl e Oleghe, Efewongbe Primary Care Unavailable Díaz, Dg Referring Unavailable Allergies Allergy Classification Reported Allergen(s) Allergy Type Date of Onset Reaction(s) Facility Corticosteroids (3 sources) Cortisone Drug Allergy 2 [facility] Work Phone: (15 sources) SEASONAL [Other] Propensity to adverse reactions 7 [facility] Work Phone: (20 sources) Cortisone; Translations: [CORTISONE] Drug Allergy 2 [facility] Work Phone: (1 source) OTHER; Translations: [OTHER] Propensity to adverse reactions (disorder) 7 [facility] Other [place] [facility] (1 source) Cortisone Drug Allergy 5 [facility] Medications Current Medications Medication Drug Class(es) Dates Sig (Normalized) Sig (Original) acetaminophen 325 mg oral tablet (20 sources) Start: 05-18-2024 take 1 tablet by mouth once as needed for pain Acetaminophen (Tylenol) 325 mg tablet Active 325 mg PO ONCE as needed for pain May 18, 2024 12:00am Start: 03-29-2023 take 2 tablets enter al route every six hours as needed acetaminophen (TYLENOL) 325 mg tablet 2 tablets by ORAL/FEEDING TUBE route every 6 hours as needed for pain. 03/29/2023 Active Comment on above: 2 tablets by ORAL/FE EDING TUBE route every 6 hours as needed for pain. iv contrast (will be provided with radiology test) (1 source) Star t: 04-15 End: 04-15 inject 1 dose intravenously once iv contrast (will be provided with radiology test) MRI TSP Inject, intravenously, once for 1 dose. No IV access, insert saline lock prior to the beginning of sedation, infusion, injection of imaging exam. Discontinue saline lock post exam. If Pt. has a central line or IVAD, may access for administration according to line specific nursing protocol. Once exam is complete flush line and de-access according to line specific nursing protocol in the MR contrast administration guidelines link. 1 Each 05/11/2024 05/12/2024 Active methylPREDNISolone (3 sources) Corticosteroid Star t: 05-16 24 End: 07-03 24 methylPREDNISolone (MEDROL, SANDRA,) 4 mg Dose-Pack Indications: Acute cervical radiculopathy See package instructions 21 tablet 0 06/13/2023 06/19/2023 Active mupirocin 0.02 mg/mg topical ointment (2 sources) RNA Synthetase Inhibitor Antibacterial Star t: 09-02 23 End: 03-17 24 mupirocin (BACTROBAN) 2 % ointment Indications: Carrier of methicillin resistant Staphylococcus aureus Apply 1/2 inch ointment with a cotton swab (Q-tip) in each nostril twice daily, start five(5) days prior to surgery. 22 g 0 01/20/2023 03/28/2023 Active Comment on above: Apply 1/2 inch ointm ent with a cotton swab (Q-tip) in each nostril twice daily, start five(5) days prior to surgery. oxyCODONE hydrochloride 5 mg oral tablet (2 sources) Opioid Agonist Star t: 03-18 End: 04-05 take 1 tablet by mouth every eight hours as needed for pain oxyCODONE IR (ROXICODONE) 5 mg immediate release tablet Indications: S/P cervical spinal fusion , Acute postoperative pain Take 1 tablet by mouth every 8 hours as needed (Moderate to severe postop pain) for up to 5 days. 14 tablet 0 04/11/2023 04/16/2023 Active Start: 03-29-2023 End: 04-03-2023 take 1 tablet by mouth every six hours as needed oxyCODONE IR (ROXICODONE) 5 mg immediate release tablet Indications: S/P cervical spinal fusion , Acute postoperative pain , Cervical spondylosis with myelopathy Take 1 to 2 tablets by mouth every 6 hours as needed for moderate to severe postop pain for up to 5 days. 35 tablet 0 03/29/2023 04/03/2023 Active Comment on above: Take 1 to 2 tablets by mouth every 6 hours as needed for moderate to severe postop pain for up to 5 days. Take 1 tablet by starla th every 8 hours as needed (Moderate to severe postop pain) for up to 5 days. Completed/Discontinued Medications Medication Drug Class(es) Dates Sig (Normalized) Sig (Original) acetaminophen 325 mg / oxyCODONE hydrochloride 5 mg oral tablet (7 sources) Opioid Agonist Start: 03-21-2015 End: 07-01-2017 Oxycodone-Acetamino phen 1 TABLET tablet Discontinued 1 - 2 {tbl} PO EVERY 4 HOURS NEEDED as needed for Pain March 21, 2015 1:00am July 01, 2017 9:27am Start: 03-21-2015 End: 07-01-2017 take 1 tablet by mouth every four hours as needed Oxycodone-Acetaminophen Discontinued 1 - 2 TABLET PO EVERY 4 HOURS NEEDED March 21, 2015 1:00am July 01, 2017 9:27am benzocaine 6 mg / menthol 10 mg oral lozenge (20 sources) Standardized Chemical Allergen Start: 03-29-2023 End: 05-11-2024 benzocaine-menthol (CHLORASEPTIC) 6-10 mg lozenges Indications: S/P cervical spinal fusion , Acute postoperative pain Use 1 Lozenge as instructed every 2 hours as needed. 36 Each 03/29/2023 05/11/2024 Discontinued Comment on above: Use 1 Lozenge as ins tructed every 2 hours as needed. celecoxib 200 mg oral capsule (7 sources) Nonsteroidal Anti-inflammatory Drug Start: 07-31-2021 End: 04-05-2024 take 1 capsule by mouth once daily Celecoxib (Celebrex) 200 mg capsule Discontinued 200 mg PO DAILY July 31, 2021 12:00am April 05, 2024 4:34pm cholestyramine resin 4000 mg powder for oral suspension (11 sources) Bile Acid Sequestrant Start: 04-23-2019 End: 05-23-2019 take 1 dose by mouth twice daily Cholestyramine 4 GM Oral Packet 1 (one) Packet bid for 30 days Quantity: 60 {Packet} Refills: 0 Ordered: 23-Apr-2019 Darlene Galan Start : 23-Apr-2019 End : 23-May-2019 Inactive cyclobenzaprine hydrochloride 10 mg oral tablet (5 sources) Muscle Relaxant Start: 09-26-2017 End: 11-18-2021 take 1 tablet by mouth three times daily as needed cyclobenzaprine (FLEXERIL) 10 mg tablet Indications: Acute bilateral low back pain with bilateral sciatica Take 1 tablet by mouth three times daily as needed. 15 tablet 0 09/26/2017 11/18/2021 Discontinued Comment on above: Take 1 tablet by starla three times daily as needed. diclofenac sodium 0.01 mg/mg topical gel (8 sources) Nonsteroidal Anti-inflammatory Drug End: 05-11-2024 diclofenac (VOLTAREN) 1 % topical gel Apply to affected area four times daily. 05/11/2024 Discontinued docusate sodium 50 mg / sennosides, jail 8.6 mg oral tablet (20 sources) Start: 03-29-2023 End: 05-11-2024 take 2 tablets enteral route every twelve hours as needed senna-docusate (SENNA-S) 8.6-50 mg per tablet Take 2 tablets by mouth two times a day as needed for constipation. 20 tablet 03/29/2023 05/11/2024 Discontinued Comment on above: Take 2 tablets by [facility] two times a day as needed for constipation. famotidine 20 mg oral tablet (7 sources) Histamine-2 Receptor Antagonist Start: 07-09-2014 End: 07-01-2017 take 1 tablet by mouth twice daily Famotidine 20 MG tablet Discontinued 20 mg PO TWICE A DAY July 09, 2014 12:00am July 01, 2017 9:27am gabapentin 300 mg oral capsule (14 sources) Anti-epileptic Agent Start: 08-05-2023 End: 05-11-2024 take 1 capsule by mouth once daily at bedtime gabapentin (NEURONTIN) 300 mg capsule Take 1 capsule by mouth daily at bedtime for 30 days. 30 capsule 08/05/2023 05/11/2024 Discontinued Start: 05-02-2019 End: 02-20-2021 take 1 capsule by mouth once daily, then take 1 capsule by mouth twice daily Gabapentin 100 MG Oral Capsule 1 (one) Capsule daily x 3 days then 1 bid for 0 days Quantity: 60 {Capsule} Refills: 0 Ordered: 20-Feb-2021 Victorino Garcia LPN Start : 02-May-2019 End : 20-Feb-2021 Inactive Comments: [place] Ulnar neuropathy Comment on above: [place] Ulnar neur opathy ibuprofen 200 mg oral tablet (5 sources) Nonsteroidal Anti-inflammatory Drug Start: 04-05-19 End: 07-28-19 take 1 tablet by mouth every six hours as needed for pain Ibuprofen (Advil) 200 mg tablet Discontinued 200 mg PO EVERY 6 HOURS as needed for pain May 18, 2024 12:00am July 27, 2024 1:38pm 2 ml ketorolac tromethamine 30 mg/ml injection (3 sources) Nonsteroidal Anti-inflammatory Drug, Cyclooxygenase Inhibitor Start: 08-04-19 End: 08-04-19 keTORolac 60 mg injection (Toradol) Start: 08-04-2023 End: 08-04-2023 keTORolac 60 mg injection (T oradol) Start: 08-04-2023 End: 08-04-2023 keTORolac 60 mg injection (T oradol) meloxicam 7.5 mg oral tablet (18 sources) Nonsteroidal Anti-inflammatory Drug Start: 05-30-2019 End: 02-20-2021 take 1 tablet by mouth once daily at mealtime Mobic 7.5 MG Oral Tablet 1 (one) Tablet daily for 0 days Quantity: 30 {Tablet} Refills: 0 Ordered: 20-Feb-2021 Victorino Garcia LPN Start : 30-May-2019 End : 20-Feb-2021 Inactive Comments: with food Start: 10-01-2017 End: 05-29-2021 take 1 tablet by mouth once daily Meloxicam (Mobic) 15 MG tablet Discontinued 15 mg PO DAILY October 01, 2017 12:00am May 29, 2021 10:43am Comment on above: with food metaxalone 800 mg oral tablet (11 sources) Start: 0 End: 2 take 1 tablet by mouth once daily at bedtime Metaxalone 800 MG Oral Tablet 1 (one) Tablet qhs for 0 days Quantity: 30 {Tablet} Refills: 3 Ordered: 20-Feb-2021 Victorino Garcia LPN Start : 10-Apr-2019 End : 20-Feb-2021 Inactive methocarbamol 750 mg oral tablet (20 sources) Muscle Relaxant Start: 4 End: 5 take 1 tablet by mouth every six hours as needed for pain methocarbamol (ROBAXIN) 750 mg tablet Indications: S/P cervical spinal fusion , Acute postoperative pain Take 1 tablet by mouth every 6 hours as needed (Muscle spasms / pain). 20 tablet 06/06/2023 05/11/2024 Discontinued Start: 03-29-2023 take 1 tablet by starla every six hours as needed for pain methocarbamol (ROBAXIN) 750 mg tablet Indications: S/P cervical spinal fusion , Acute postoperative pain , Cervical spondylosis with myelopathy Take 1 tablet by mouth every 6 hours as needed (Muscle spasms / pain). 60 tablet 0 03/29/2023 Active Comment on above: Take 1 tablet by starla th every 6 hours as needed (Muscle spasms / pain). MULTIVITAMIN ORAL (20 sources) End: 05-11-2024 MULTIVITAMIN ORAL Take by mouth once daily. 05/11/2024 Discontinued MULTIVITAMIN ORA L Take by mouth once daily. Active MULTIVITAMIN ORA L Take by mouth once daily. 0 Active Comment on above: Take by mouth once d aily. MVI (6 sources) MVI Active naproxen 500 mg oral tablet (5 sources) Nonsteroidal Anti-inflammatory Drug Start: 10-04-19 End: 11-19-19 take 1 tablet by mouth twice daily as needed naproxen (NAPROSYN) 500 mg tablet Indications: Acute right-sided low back pain with bilateral sciatica Take 1 tablet by mouth twice daily as needed. Take with food. 60 tablet 1 10/03/2017 11/18/2021 Discontinued Comment on above: Take 1 tablet by starla th twice daily as needed. Take with food. predniSONE 10 mg oral tablet (5 sources) Start: 08-04-19 End: 05-12-19 25 predniSONE (DELTASONE) 10 mg tablet 50 mg for 3 days, followed by 30 mg for 3 days, followed by 10 mg for 3 days. 27 tablet 08/04/2023 05/11/2024 Discontinued saccharomyces boulardii 250 mg oral capsule (11 sources) Start: 03-20-19 End: 02-20-19 22 take 1 capsule by mouth once daily Probiotic 250 MG Oral Capsule 1 (one) Capsule daily for 0 days Quantity: 30 {Capsule} Refills: 0 Ordered: 20-Feb-2021 Victorino Garcia LPN Start : 20-Mar-2019 End : 20-Feb-2021 Inactive tiZANidine 4 mg oral tablet (15 sources) Central alpha-2 Adrenergic Agonist Start: 08-02-19 End: 05-12-19 25 tiZANidine (ZANAFLEX) 4 mg tablet 08/02/2023 05/11/2024 Discontinued Start: 10-01-2017 End: 05-29-2021 take 1 tablet by mouth three times daily Tizanidine 4 MG tablet Discontinued 4 mg PO THREE TIMES A DAY October 01, 2017 12:00am May 29, 2021 10:43am traMADol hydrochloride 50 mg oral tablet (7 sources) Opioid Agonist Start: 07-09-2014 End: 07-01-2017 take 1 tablet by mouth every six hours as needed for pain Tramadol 50 MG tablet Discontinued 50 mg PO EVERY 6 HOURS NEEDED as needed for Pain July 09, 2014 12:00am July 01, 2017 9:27am NEGATED: Highlighted row has not occurred!drug or medication (3 sources) No Known Histori elier Medications NEGATED: Highlighted row has not occurred!No Known Historical Medications (7 sources) No Known Histori elier Medications Problems Active Problems Problem Classification Problem Date Documented Da te Episodic/Chronic Administrative/social admission (7 sources) Patient encounter status; Translations: [Encounter for physical examination related to employment] Onset: 05-18-2024 12-17-2022 Episodic Anxiety disorders (20 sources) Generalized anxiety disorder; Translations: [Generalized anxiety disorder] 09-14-2007 Chronic Asthma (20 sources) Unspecified asthma, uncomplicated; Translations: [Asthma, unspecified type, unspecified] 09-14-2007 Chronic Headache; including migraine (20 sources) Migraine; Translations: [Migraine, unspecified, not intractable, without status migrainosus] Onset: 01-11-2007 Resolved: 09-14-2007 09-14-2007 Chronic Headache; including migraine (13 sources) Headache; Translations: [Headache] 02-20-2021 Episodic Comment on above: worse after meals, h istory of migraines Malaise and fatigue (1 source) Asthenia; Translations: [Weakness] 05-11-2024 Episodic Mood disorders (20 sources) Recurrent major depressive episodes; Translations: [Major depressive disorder, recurrent, unspecified] 09-14-2007 Chronic Nonmalignant breast conditions (20 sources) Breast lump; Translations: [Unspecified lump in the right breast, unspecified quadrant] Onset: 11-24-2012 11-24-2012 Episodic Other connective tissue disease (20 sources) Muscle pain; Translations: [Myalgia and myositis, unspecified] 09-14-2007 Episodic Other gastrointestinal disorders (20 sources) Diarrhea; Translations: [Diarrhea] Resolved: 02-20-2021 05-02-2019 Episodic Comment on above: over a year off on i mmediately after a meal wt loss, has tried gluten free and GB removed 5 yrs ago, with abd cramping, stool studies done and normal, CBC normal. But ongoing wt loss. Somewhat trialed gluten free. On one day saw a improvement. 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 Other nervous system disorders (10 sources) Ulnar neuropathy; Translations: [Lesion of ulnar nerve, unspecified upper limb] Chronic Other nervous system disorders (4 sources) Lesion of ulnar nerve, unspecified upper limb; Translations: [Lesion of ulnar nerve] Chronic Other nervous system disorders (4 sources) Lesion of ulnar nerve, left upper limb; Translations: [Lesion of ulnar nerve] Chronic Other nervous system disorders (5 sources) Demyelinating disease of central nervous system; Translations: [Demyelinating disease of central nervous system, unspecified] 05-11-2024 Chronic Other nervous system disorders (1 source) Demyelinating disease of central nervous system, unspecified; Translations: [Demyelinating disease of central nervous system (HCC)] Onset: 05-25-2024 Chronic Other nervous system disorders (4 sources) Cervical myelopathy; Translations: [Disease of spinal cord, unspecified] 06-25-2024 Chronic Other nervous system disorders (4 sources) Neuropathy; Translations: [Polyneuropathy, unspecified] 05-18-2024 Chronic Other nervous system disorders (1 source) Polyneuropathy, unspecified; Translations: [Polyneuropathy, unspecified] Onset: 06-01-2024 Chronic Other nervous system disorders (13 sources) Paresthesia of skin; Translations: [Paresthesia of left upper limb] 05-02-2019 Episodic Comment on above: occured after a coug h left worsening Other nervous system disorders (3 sources) Numbness of hand; Translations: [Anesthesia of skin] Episodic Other nervous system disorders (8 sources) Disorder of nervous system; Translations: [Other disorders of nervous system] 04-06-2024 Episodic Comment on above: Patient reports a pr ogressive abnormality over the past 6 months to year manifested by diffuse paresthesia. Exact etiology not clear. Other nervous system disorders (1 source) Other disorders of nervous system; Translations: [Other disorders of nervous system] Onset: 05-18-2024 Episodic Other non-traumatic joint disorders (18 sources) Joint pain; Translations: [Joint pain] 02-20-2021 Episodic Comment on above: overall joint pain Other non-traumatic joint disorders (9 sources) Pain in elbow; Translations: [Pain in left elbow] Episodic Other screening for suspected conditions (not mental disorders or infectious disease) (7 sources) Finding of thyroid gland; Translations: [Abnormal thyroid ultrasound] 03-13-2021 Chronic Comment on above: saw Dr. Zabala, FNA Other screening for suspected conditions (not mental disorders or infectious disease) (20 sources) Abnormal nerve conduction; Translations: [Abnormal nerve conduction studies] 05-02-2019 Episodic Other upper respiratory disease (20 sources) Allergic rhinitis; Translations: [Allergic rhinitis, unspecified] 09-14-2007 Chronic Residual codes; unclassified (20 sources) Hypersomnia; Translations: [Hypersomnia, unspecified] Onset: 12-26-2002 06-10-2003 Chronic Residual codes; unclassified (3 sources) History of cholecystectomy; Translations: [S/P cholecystectomy] 05-02-2019 Episodic Residual codes; unclassified (20 sources) Body mass index 20-24 - normal; Translations: [BMI 21.0-21.9, adult] Resolved: 12-17-2022 05-02-2019 Episodic Residual codes; unclassified (16 sources) Non-smoker; Translations: [Nonsmoker] 05-02-2019 Episodic Residual codes; unclassified (10 sources) Family history of diabetes mellitus; Translations: [Family history of diabetes mellitus] 03-06-2021 Episodic Residual codes; unclassified (9 sources) Pain; Translations: [Pain, unspecified] 05-29-2021 Episodic Residual codes; unclassified (8 sources) Past history of procedure; Translations: [Other specified postprocedural states] 07-14-2017 Episodic Comment on above: 2012 Residual codes; unclassified (3 sources) Other specified postprocedural states; Translations: [S/P decompression of ulnar nerve] Onset: 11-25-2021 Episodic Residual codes; unclassified (6 sources) History of eye AND/OR adnexa surgery; Translations: [Other specified postprocedural states] 07-14-2017 Episodic Comment on above: Bilateral eye repair for lazy eyes 1987, 1997 Residual codes; unclassified (5 sources) History of surgical procedure on cervical spine; Translations: [Other specified postprocedural states] 07-04-2023 Episodic Spondylosis; intervertebral disc disorders; other back problems (20 sources) Degeneration of cervical intervertebral disc; Translations: [Cervical radiculopathy] Onset: 03-29-2023 05-02-2019 Chronic Comment on above: C5-C6 with radiculop athy to left arm,will send to PT, if not improving would do MRI. nerve conduction on 04-12 at 12:15 at [facility] C5-C6 with radiculop athy to left arm, Dr. Tapia disc replacement C5-C6 with radiculop athy to left arm, Dr. Shilo Tapia disc replacement, now needs fusion but does not want. [facility] in [place] might do another disc replacement since Dr Tapia cannot do- takes ibuprofen prn, backed off since upset stomach Spondylosis; intervertebral disc disorders; other back problems (20 sources) Cervical radiculopathy; Translations: [Radiculopathy, cervical] Onset: 12-16-2014 05-02-2019 Episodic Comment on above: nerve conduction on 04-12 at 12:15 at [facility] saw Dr. Coronado in [place], had CT. Going to place in [place] now, considering more surgerynerve conduction on 04-12 at 12:15 at [facility] Patient has had cerv ical stenosis and required discectomy and fusion C5-6 as documented in records. Whether or not there is a myelopathy is not clear but patient does have some subtle changes which suggest the possibility. Patient has had cerv ical stenosis and required discectomy and fusion C5-6 as documented in records. Whether or not there is a myelopathy is not clear but patient does have some subtle changes which suggest the possibility.06/01/2024:Patient appears to have progressive symptoms. Images show possible progressive spondylosis in cervical spine on my review of images. I would prefer to have neurosurgery clinic clinic review the images to see if they agree. Referral to neurosurgery as noted above. Thyroid disorders (20 sources) Goiter; Translations: [Goiter] 03-06-2021 Chronic Comment on above: Left lower pole 1.2 solid nodule will be biopsied by Dr. Zabala we will get FNA and OV note results. likely need to repeat the US.Left lower pole 1.2 solid nodule biopsy by Dr. Zabala Unclassified (4 sources) History of neck surgery; Translations: [Z98.890 - Other specified postprocedural states] Unclassified (2 sources) Cervical spinal stenosis due to adjacent segment disease after fusion procedure Unclassified (2 sources) G62.9 - Polyneuropathy, unspecified,M48.02 - Spinal stenosis, cervical region,M50.30 - Other cervical disc degeneration, unspecified cervical region Unclassified (2 sources) Z98.890 - Other specified postprocedural states,M48.02 - Spinal stenosis, cervical region,M50.30 - Other cervical disc degeneration, unspecified cervical region Past or Other Problems Problem Classification Problem Date Documented Date Episodic/Chronic Abdominal pain (20 sources) Right upper quadrant pain; Translations: [Right upper quadrant pain] Onset: 07-16-2008 Resolved: 09-27-2011 03-14-2015 Episodic Biliary tract disease (20 sources) Biliary colic; Translations: [Calculus of bile duct without cholangitis or cholecystitis without obstruction] Onset: 03-14-2015 03-14-2015 Episodic Headache; including migraine (12 sources) Headache; including migraine Other complications of (18 sources) Supervision of other high risk pregnancies, unspecified trimester; Translations: [Supervision of other high-risk ] Onset: 07-16-2008 Resolved: 09-27-2011 09-27-2011 Episodic Other connective tissue disease (20 sources) Myofascial pain; Translations: [Myalgia, other site] Onset: 12-16-2014 12-16-2014 Episodic Other connective tissue disease (20 sources) History of cervical spine fusion; Translations: [Arthrodesis status] Onset: 03-29-2023 03-29-2023 Episodic Other connective tissue disease (1 source) Arthrodesis status; Translations: [S/P cervical spinal fusion] Onset: 03-29-2023 Episodic Other female genital disorders (18 sources) Female genital organ symptoms; Translations: [Unspecified condition associated with female genital organs and menstrual cycle] Onset: 07-16-2008 Resolved: 09-27-2011 09-27-2011 Episodic Other nervous system disorders (20 sources) Acute postoperative pain; Translations: [Other acute postprocedural pain] Onset: 03-29-2023 03-29-2023 Episodic Other nervous system disorders (1 source) Anesthesia of skin; Translations: [Bilateral hand numbness] Onset: 07-04-2023 Episodic Other nervous system disorders (3 sources) Ulnar neuropathy of left arm; 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] 05-02-2019 Comment on above: with 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 Other non-traumatic joint disorders (10 sources) Shoulder pain; Translations: [Left shoulder pain] Resolved: 02-20-2021 05-02-2019 Episodic Comment on above: Shoulder and elbow Other non-traumatic joint disorders (6 sources) Pain in left shoulder; Translations: [Left shoulder pain] Onset: 08-04-2023 Resolved: 02-20-2021 03-06-2021 Episodic Comment on above: Shoulder and elbow Other and delivery including normal (20 sources) Normal ; Translations: [Encounter for supervision of other normal , unspecified trimester] Onset: 08-05-2006 Resolved: 09-27-2011 08-18-2006 Episodic Residual codes; unclassified (20 sources) Insomnia; Translations: [Insomnia, unspecified] Onset: 12-26-2002 06-10-2003 Episodic Screening and history of mental health and substance abuse codes (20 sources) Ex-smoker; Translations: [Personal history of nicotine dependence] Onset: 03-17-2023 03-17-2023 Episodic Unclassified (20 sources) Ulnar neuropathy of left upper extremity Unclassified (10 sources) S/P cholecystectomy Unclassified (20 sources) Arm paresthesia, left Unclassified (20 sources) Body mass index 20-24 - normal; Translations: [BMI 21.0-21.9, adult] 05-02-2019 Unclassified (20 sources) Nonsmoker; Translations: [Non-smoker] 05-02-2019 Unclassified (11 sources) Deliveries (Parity); Translations: [Deliveries (Parity)] 05-02-2019 Comment on above: 2, vaginal Unclassified (20 sources) BMI 22.0-22.9, adult Unclassified (20 sources) Unclassified (11 sources) Pregnancies (); Translations: [Pregnancies ()] 05-02-2019 Comment on above: 3 Unclassified (20 sources) Radiculopathy, cervical Unclassified (10 sources) Left shoulder pain Unclassified (10 sources) Abnormal nerve conduction studies Unclassified (11 sources) Abortions/Miscarriage s; Translations: [Abortions/Miscarriag es] 05-02-2019 Comment on above: 1 Unclassified (18 sources) Degenerative disc disease, cervical Unclassified (8 sources) Restless leg Unclassified (4 sources) Abnormal thyroid ultrasound Unclassified (4 sources) Arthralgia Results Test Name Value Interpretation Reference Range Facility MR/POSTOP.[facility] [place] 07-31-2024 MR/POSTOP.[facility] Medical Records Department [address] [place] [address] Anesthesia Postop Eval I 07/31/24 1428 MR#: [id number] Acct: [id number] Name: CLARITZA MARTIN Rep #: [id number] : 1980 43 From: Karson Joel II, CRNA PCP: Dr. Jesusita Jang MD [place] [facility] [place] Race[place] C Location: [place] [address] Anesthesia: Postop Eval I Current Vital Signs Temperature: 97.6 F Pulse Rate: 79 Blood Pressure: 110/70 Respiratory Rate: 18 Pulse Ox: 99 Oxygen Delivery Method: Nasal Cannula Oxygen Flow Rate (L/min): 3 Assessment Airway patent: Yes Spontaneous unlabored respirations: Yes Mental status: Awake and Calm nausea: No Vomiting: No Anesthesia Complication: No Fluid Hydration Crystalloid volume administer (ml): 1,100 Total IV fluid infused: 1,100 Progress Note Post-operative progress note: VSS see PACU notes for details Anesthesia document: Postop Eval 1 completed: Yes 07/31/241427 Date Karson Joel II BARKER PEELER Cosigner Signature: Date CC: Signed Normal [facility] Operative Reporton 5 Operative Report [facility] Medical Records Department [address] [place] [address] Operative Report 07/31/24 1408 MR#: [id number] Acct: [id number] Name: CLARITZA MARTIN Rep #: [id number] : 1980 43 From: Dg Díaz MD PCP: Dr. 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: Yes Slip Caster: Ely Salas Tasks completed by histology assistant: Closing, Removing tissue, Hemostasis: Electrocautery and Retracting Type of Anesthesia: General RN Documented Start/Stop Times: Operation Date: 07/31/24 10:20 Case Time Into Pre-Op 07/31/24 08:19 Out of Pre-Op 07/31/24 11:56 Anesthesia Start 07/31/24 11:59 Into Room 07/31/24 11:59 Procedure Start 07/31/24 12:30 Procedure Start Time: 12:30 Procedure Stop Time: 14:12 Select all DRAINS/GRAFTS/IMPLANTS that apply: Drains Drain details: Imtiaz and Prosthetic device Prosthetic device details: Sun Heardi-C cervical disc replacement prosthesis Estimated Blood Loss: 20 cc Specimen collected: No Description of surgery: Preoperative diagnosis: 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 Anesthesia: Gen. endotracheal Estimated blood loss: 20 mL Complications: None Instrumentation used: [employer] Mobi-C cervical disc replacement implants Indications: The patient is a pleasant 43-year-old lady who presented with symptoms of neck pain, progressive weakness and dexterity issues, left worse than right radicular pain. Imaging revealed C4-5 central right paracentral soft disc herniation with cord compression without cord signal changes, prior C5-6 disc replacement, prior C6-7 ACDF. In order to halt the progression of myelopathy, patient requested surgical intervention. All risks and benefits of the procedure were explained to the patient. The risks include but are not limited to infection, bleeding, injury to nerves and vessels, vertebral artery injury, spinal cord injury, paralysis, vocal cord paralysis, injury to esophagus, need for further procedures, adjacent segment degeneration, heterotopic ossification, implant loosening, implant failure, DVT, pulmonary embolism, cardiopulmonary event, etc. Procedure: The patient was identified in the preoperative suite using unique patient identifiers. Skin was marked consent was taken and all questions were answered. The patient was then brought back to the operative room and a timeout was performed. General endotracheal anesthesia was given. Intraoperative neuro monitoring leads were applied. The patient was carefully positioned supine on a regular OR table. A lateral x-ray with a C-arm was done to identify the level and to define the incision. The anterior neck was then prepped and draped in the usual fashion. A final timeout was then performed. Previous incisional scars noticed on the left at C5-6 and to the right at C6-7. Decision was made to go to the right for a revision anterior approach to C4-5. A transverse skin incision was then taken to the right of midline. Subcutaneous tissue was then divided with Bovie. Platysma was identified and cut transversely with scissors. The fascial interval between the sternocleidomastoid and the larynx was developed. Omohyoid was identified and mobilized medially and inferiorly. Carotid sheath was laterally while the esophagus with the larynx was retracted medially to reach the prevertebral fascia. Significant scarring was noticed in the prevertebral space. C5-6 disc replacement hardware was identified and the disc above was exposed. All prevertebral layers of fascia were bluntly and to some extent sharply dissected and a [place] pin was placed into the presumed C5 body. A lateral C-arm image was used to confirm the correct level. Once this was done longus coli muscle was elevated on both sides at and above and below C4-5 discs. Shadow line retractors were then placed with great care to protect the esophagus. A long handle knife was then used to perform annulotomy at C4-5. Disc fragments were removed with the pituitary. [place] pins were placed in C4 and C5 for disc distraction. AP view confirmed midline placement of [place] pins. Curettes were utilized to remove cartilage from the endplates. Discectomy was performed (more content not included)... Normal [facility] Orthopedic Visit Reporton Orthopedic Visit Report [facility] [address] [place] [address] OFFICE VISIT Date of Service: 07/27/24 MR#: [id number] Acct: [id number] Name: CLARITZA MARTIN Rep #: [id number] : 1980 Provider: Dr. Dg Díaz MD Age/Sex: 43/F Location: [facility] [place].[facility] Status: Signed Intake Vital Signs 06/22/24 09:28 07/11/24 11:53 Height 5 ft 2.5 in 5 ft 2 in Intake Visit Reasons: cervical spine Chief Complaint: Pre-Op Cervical Spine Accompanied by: Is patient in pain?: Yes Pain scale (1-10): 4 Allergies cortisone Allergy (Intermediate, Verified 07/27/24 13:38) Rash Medications ???Medication ???Instructions ???Recorded ???Confirmed ???Type acetaminophen 325 mg tablet 325 mg PO ONCE PRN pain 05/18/24 0 07/27/24 History (Tylenol) [facility] Medical History Wears glasses Alcohol use Restless legs Multiple sclerosis Former smoker History of pain when walking Encounter to establish care Preventative health care Neuropathy Lump of right breast Surgical History History of elbow surgery H/O neck surgery Hx of right breast biopsy Hx of dilation and curettage Hx of tonsillectomy Hx of eye surgery Hx of hysterectomy Hx of cholecystectomy Family History Father Diabetes Hypertension Brother Diabetes Aunt Breast cancer Mother Osteoarthritis Social History household members: spouse and children current occupational status: employed 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 pets and animals: Yes pets and animals: cat(s), dog(s) and fish Smoking Status: Former smoker second hand exposure: No alcohol intake: current alcohol intake frequency: holidays/special occasions only details: On avg 1 drink once or twice a month substance use type: does not use caffeine: Yes Type: coffee Number of servings: 1 and other Number of servings: 1 what type of physical activity do you participate in: none frequency: does not exercise seatbelt use: always do you feel safe at home: Yes HPI cervical spine Details: This documentation accurately reflects the service provided and the decisions made by me, Dr. Dg Díaz MD 07/27/24 3114. Part of today???s visit was documented by Shreya Salinas ATC, acting as scribe. CLARITZA MARTIN is a 43 year old F here today for pre-op cervical disc replacement C4-5, possible removal of hardware DOS 07/31/2024. Patient rates her pain a 4/10 today. She states she has stopped taking Advil but continues to take the Tylenol. 06/22/24: CLARITZA MARTIN is a 43 year old F here today for cervical spine pain. She complains of cervical spine pain that extends down in to her left shoulder. This has been going on for 15 months.She describes the pain as a sharp achy pain and at times she feels a shock like sensation.She has been experiencing numbness and tingling in both arms and both legs. She complains of numbness in her face and bilateral hands. She does experience muscle spasms in her hands. She does report recent issues with her balance, she feels off balance and has to catch herself so that she does not fall. She has tried oral steroids which were not helpful. She had a reaction to the injections in [address] Collins therefore she is not able to have anymore. She cannot use her left hand to bowl or play basketball. She does have proximal weakness in her arm/shoulder. She cannot carry anything that is heavy because it increases the pain. She drops items with her hands such as her keys. She reports two previous surgeries. The first was in April 2019 for a cervical disc replacement at C5-C6, the second surgery was a fusion at C6-C7 in March 2023. She has been in pain since this surgery. She did not have any issues swallowing after her surgeries.She denies diabetes or heart issues. She denies history of strokes. She does have nodules on her thyroid that are checked periodically with imaging. She had a brain scan recently that showed lesions consistent with MS. She has an appointment in July at [facility] with a neurologist for further evaluation. Ortho Exam General General: Yes no acute distress Neurologic: Yes alert Psychologic: Yes reasonable and appropriate Spine SPINE TESTING CERVICAL THORACIC LUMBAR Musculoskeletal Strength 0=absent - 5=normal Details: Examination of the neck shows right lower and left upper ACDF incision scars from prior surgery. Neurologic facial upper extremity shows 5 x 5 bilateral shows normal sensations in all doctors. Adarsh's is positive on the left. Romberg's is positive. Tandem gait shows mild imbalance. There is hyperreflexia lower extremities. (more content not included)... Normal [facility] Hepatitis A AB, Totalon 06-0 HEPATITIS A,TOT Negative Normal Negative [facility] Comment on above: Result Comment: Comm ent: The HAV total antibody assay detects both IgG and IgM but does not differentiate between them. A negative result suggests susceptibility to infection. A positive result could be due to vaccination, previously resolved infection or active infection. Testing for HAV IgM should be performed if active HAV infection is suspected. [facility] offers profiles that will automatically reflex positive HAV total antibody results to IgM (e.g., panel #[id number] HAV Antibody w/ Rfx). Performed at: [address] [id number] Housing Specialist: Keon Oakley PhD, Phone: [phone] Performed By: #### L 100.0100, M100.651, L3730.6006, L3890.0142, BTSPAT, L3100.0300, L3890.6301, L501.9985, L500.2500 ####[facility] [id number] [place], [address] MRSA/SAID NASAL SCREENon MRSA+SAID SCRN Reason for Exam: Surgery MRSA MRSA Negative S. AUREUS S. aureus Negative Normal [facility] Comment on above: Performed By: #### L 100.0100, M100.651, L3890.6006, L3890.6202, BTSPAT, L3100.0300, L3890.6301, L501.9985, L500.2500 ####[facility] [id number] [facility] [place], [address] 12 Lead EKGon 07-19-2024 12 Lead EKG [facility] Cardiovascular Services [address] [place] [address] 12 Lead EKG 07/19/24 1408 MR#: [id number] Acct: [id number] Name: CLARITZA MARTIN Rep #: [id number] : 1980 43 From: Mini Dailey MD Attending Dr: Dr. Dg Díaz MD [place] [facility] [place]: Dg Díaz MD Date: 07/19/24 [place] [facility] Sex: F C Admitted: Test Reason : PREOP Blood Pressure : */* mmHG Vent. Rate : 80 BPM Atrial Rate : 80 BPM P-R Int : 116 ms QRS Dur : 70 ms QT Int : 378 ms P-R-T Axes : 70 55 33 degrees QTcB Int : 435 ms Normal sinus rhythm with sinus arrhythmia Normal ECG Confirmed by ASHLIE ROQUE, LUPE ([id number]), graphics editor CLARITZA GUZMAN ([id number]) on 07/23/2024 6:25:36 AM Referred By: Dg Díaz Confirmed By: LUPE DAILEY MD 07/23/24624 Date Mini Dailey MD CC: Dr. Dg Díaz MD; Dr. Jesusita Jang MD Signed Normal [facility] Basic Metabolic Profile (BMP )on 07-19-2024 BUN/CRE 18.6 RATIO Normal 10-20 [facility] Comment on above: Performed By: #### L 100.0100, M100.651, L3890.6006, L3890.6202, BTSPAT, L3100.0300, L3890.6301, L501.9985, L500.2500 #### [facility] Laboratory [address] [place], [address] Calcium [Mass/Vol] 9.1 mg/dL Normal 7.6-11.0 [facility] Comment on above: Performed By: #### L 100.0100, M100.651, L3890.6006, L3890.6202, BTSPAT, L3100.0300, L3890.6301, L501.9985, L500.2500 #### [facility] [address] [place], [address] Chloride [Moles/Vol] 103 mmol/L Normal 98-108 [facility] Comment on above: Performed By: #### L 100.0100, M100.651, L3890.6006, L3890.6202, BTSPAT, L3100.0300, L3890.6301, L501.9985, L500.2500 #### [facility] [address] [place], [address] CO2 [Moles/Vol] 19.5 mmol/L Low 21.0-32.0 [facility] Comment on above: Performed By: #### L 100.0100, M100.651, L3890.6006, L3890.6202, BTSPAT, L3100.0300, L3890.6301, L501.9985, L500.2500 #### [facility] [address] [place], [address] Creatinine [Mass/Vol] 0.66 mg/dL Low 0.70-1.20 [facility] Comment on above: Performed By: #### L 100.0100, M100.651, L3890.6006, L3890.6202, BTSPAT, L3100.0300, L3890.6301, L501.9985, L500.2500 #### [facility] [address] [place], [address] GAP 15 Normal 5-15 [facility] Comment on above: Performed By: #### L 100.0100, M100.651, L3890.6006, L3890.6202, BTSPAT, L3100.0300, L3890.6301, L501.9985, L500.2500 #### [facility] [address] [place], [place], [phone] (232) GFR/1.73 sq M.predicted among non-blacks MDRD (S/P/Bld) [Vol rate/Area] 111 mL/min/{1.73_m2} Normal >60 [facility] Comment on above: Result Comment: mL/m in/1.73m2 CKD-EPI Creatinine Equation (2020) Performed By: #### L 100.0100, M100.651, L3890.6006, L3890.6202, BTSPAT, L3100.0300, L3890.6301, L501.9985, L500.2500 #### [facility] [address] [place], [place], [id number] (273) Glucose [Mass/Vol] 95 mg/dL Normal 70-99 [facility] Comment on above: Performed By: #### L 100.0100, M100.651, L3890.6006, L3890.6202, BTSPAT, L3100.0300, L3890.6301, L501.9985, L500.2500 #### [facility] [address] [place], [place], [id number] (233) Potassium [Moles/Vol] 4.0 mmol/L Normal 3.3-5.1 [facility] Comment on above: Performed By: #### L 100.0100, M100.651, L3890.6006, L3890.6202, BTSPAT, L3100.0300, L3890.6301, L501.9985, L500.2500 #### [facility] [address] [place], [place], [id number] (093) Sodium [Moles/Vol] 137 mmol/L Normal 133-145 [facility] Comment on above: Performed By: #### L 100.0100, M100.651, L3890.6006, L3890.6202, BTSPAT, L3100.0300, L3890.6301, L501.9985, L500.2500 #### [facility] [address] [place], [place], [id number] Urea nitrogen [Mass/Vol] 12 mg/dL Normal 4-19 [facility] Comment on above: Performed By: #### L 100.0100, M100.651, L3890.6006, L3890.6202, BTSPAT, L3100.0300, L3890.6301, L501.9985, L500.2500 #### [facility] [address] [place], [address] CBC W/Diff, Automatedon 06-0 5-2024 Absolute Lymph 1.48 X10 3/uL Normal 0.83-4.51 [facility] Comment on above: Performed By: #### L 100.0100, M100.651, L3890.6006, L3890.6202, BTSPAT, L3100.0300, L3890.6301, L501.9985, L500.2500 #### [facility] [address] [place], [address] Absolute Neut 4.8 X10 3/uL Normal 2.0-7.7 [facility] Comment on above: Performed By: #### L 100.0100, M100.651, L3890.6006, L3890.6202, BTSPAT, L3100.0300, L3890.6301, L501.9985, L500.2500 #### [facility] [address] [facility] [place], [address] Basophils/100 WBC (Bld) 0.6 % Normal 0-1 [facility] Comment on above: Performed By: #### L 100.0100, M100.651, L3890.6006, L3890.6202, BTSPAT, L3100.0300, L3890.6301, L501.9985, L500.2500 #### [facility] [address] [facility] [place], [address] Eosinophils/100 WBC (Bld) 1.6 % Normal 0-5 [facility] Comment on above: Performed By: #### L 100.0100, M100.651, L3890.6006, L3890.6202, BTSPAT, L3100.0300, L3890.6301, L501.9985, L500.2500 #### [facility] [address] [place], [address] Erythrocyte distribution width (RBC) [Ratio] 12.2 % Normal 11.6-14.6 [facility] Comment on above: Performed By: #### L 100.0100, M100.651, L3890.6006, L3890.6202, BTSPAT, L3100.0300, L3890.6301, L501.9985, L500.2500 #### [facility] [address] [place], [address] Hematocrit (Bld) [Volume fraction] 39.0 % Normal 37-47 [facility] Comment on above: Performed By: #### L 100.0100, M100.651, L3890.6006, L3890.6202, BTSPAT, L3100.0300, L3890.6301, L501.9985, L500.2500 #### [facility] [address] [place], [address] Hemoglobin (Bld) [Mass/Vol] 12.9 g/dL Normal 12.0-15.0 [facility] Comment on above: Performed By: #### L 100.0100, M100.651, L3890.6006, L3890.6202, BTSPAT, L3100.0300, L3890.6301, L501.9985, L500.2500 #### [facility] [address] [place], [address] IG% 0.400 Normal 0.0-0.9 [facility] Comment on above: Result Comment: IG% - Immature Granulocytes (promyelocytes, myelocytes and metamyelocytes) > 1% indicates that a LEFT SHIFT is Present. Performed By: #### L 100.0100, M100.651, L3890.6006, L3890.6202, BTSPAT, L3100.0300, L3890.6301, L501.9985, L500.2500 #### [facility] [address] [place], [address] Lymphocytes/100 WBC (Bld) 21.3 % Normal 19-41 [facility] Comment on above: Performed By: #### L 100.0100, M100.651, L3890.6006, L3890.6202, BTSPAT, L3100.0300, L3890.6301, L501.9985, L500.2500 #### [facility] [address] [place], [address] MCH (RBC) [Entitic mass] 28.4 pg Normal 27.0-32.0 [facility] Comment on above: Performed By: #### L 100.0100, M100.651, L3890.6006, L3890.6202, BTSPAT, L3100.0300, L3890.6301, L501.9985, L500.2500 #### [facility] [address] [place], [address] MCHC (RBC) [Mass/Vol] 33.1 g/dL Normal 32-36 [facility] Comment on above: Performed By: #### L 100.0100, M100.651, L3890.6006, L3890.6202, BTSPAT, L3100.0300, L3890.6301, L501.9985, L500.2500 #### [facility] [address] [place], [address] MCV (RBC) [Entitic vol] 85.9 fL Normal 81-99 [facility] Comment on above: Performed By: #### L 100.0100, M100.651, L3890.6006, L3890.6202, BTSPAT, L3100.0300, L3890.6301, L501.9985, L500.2500 #### [facility] [address] [place], [address] Monocytes/100 WBC (Bld) 6.9 % Normal 0-10 [facility] Comment on above: Performed By: #### L 100.0100, M100.651, L3890.6006, L3890.6202, BTSPAT, L3100.0300, L3890.6301, L501.9985, L500.2500 #### [facility] [address] [place], [address] Neutrophils/100 WBC (Bld) 69.2 % Normal 47-70 [facility] Comment on above: Performed By: #### L 100.0100, M100.651, L3890.6006, L3890.6202, BTSPAT, L3100.0300, L3890.6301, L501.9985, L500.2500 #### [facility] [address] [place], [address] Nucleated RBC (Bld) [#/Vol] 0 10*3/uL Normal 0-5 [facility] Comment on above: Performed By: #### L 100.0100, M100.651, L3890.6006, L3890.6202, BTSPAT, L3100.0300, L3890.6301, L501.9985, L500.2500 #### [facility] [address] [place], [address] Platelet mean volume (Bld) [Entitic vol] 10.4 fL Normal 6.2-12.0 [facility] Comment on above: Performed By: #### L 100.0100, M100.651, L3890.6006, L3890.6202, BTSPAT, L3100.0300, L3890.6301, L501.9985, L500.2500 #### [facility] [address] [place], [address] Platelets (Bld) [#/Vol] 264 10*3/uL Normal 150-450 [facility] Comment on above: Performed By: #### L 100.0100, M100.651, L3890.6006, L3890.6202, BTSPAT, L3100.0300, L3890.6301, L501.9985, L500.2500 #### [facility] [address] [place], [address] RBC (Bld) [#/Vol] 4.54 10*6/uL Normal 4.2-5.4 [facility] Comment on above: Performed By: #### L 100.0100, M100.651, L3890.6006, L3890.6202, BTSPAT, L3100.0300, L3890.6301, L501.9985, L500.2500 #### [facility] [address] [place], [address] RDW SD 38.2 fl Normal 35.1-43.9 [facility] Comment on above: Performed By: #### L 100.0100, M100.651, L3890.6006, L3890.6202, BTSPAT, L3100.0300, L3890.6301, L501.9985, L500.2500 #### [facility] [address] [place], [address] WBC (Bld) [#/Vol] 7.0 10*3/uL Normal 4.4-11.0 [facility] Comment on above: Performed By: #### L 100.0100, M100.651, L3890.6006, L3890.6202, BTSPAT, L3100.0300, L3890.6301, L501.9985, L500.2500 #### [facility] [address] [place], [address] HIVon 07-19-2024 HIV Non-Reactive Normal Nonreactive [facility] Comment on above: Result Comment: Non- Reactive Reactive Repeatedly reactive samples must be confirmed according to CDC recommended confirmatory algorithms. The subresults for either HIVAG or AHIV can be used as an aid in the selection of the confirmation algorithm for reactive samples. Send out specimens with Reactive results to [facility] for confirmation. Order the HIV antibody detection and differentiation: lc#[id number] Performed By: #### L 100.0100, M100.651, L3890.6006, L3890.6202, BTSPAT, L3100.0300, L3890.6301, L501.9985, L500.2500 #### [facility] [address] [place], [address] Hemoglobin A1con 6 HbA1c (Bld) [Mass fraction] 5.5 % Normal <=5.6 [facility] Comment on above: Result Comment: Norm al < 5.7 % Prediabetic 5.7 - 6.4 % Diabetic >or= 6.5 % Please note range changes. Performed By: #### L 100.0100, M100.651, L3890.6006, L3890.6202, BTSPAT, L3100.0300, L3890.6301, L501.9985, L500.2500 #### [facility] [address] [place], [place], [id number] Hepatitis B Surface Antibody on 07-19-2024 HEP B Surf Ab Non-Reactive Normal [facility] Comment on above: Result Comment: <8.5 mIU/mL: Non-Reactive 8.5<= x <11.5 mIU/mL: Indeterminate >=11.5 mIU/mL: Reactive Non Reactive: Inconsistent with immunity less than <10 mIU/mL Reactive: Consistent with immunity greater than or equal to 10 mIU/mL Performed By: #### L 100.0100, M100.651, L3890.6006, L3890.6202, BTSPAT, L3100.0300, L3890.6301, L501.9985, L500.2500 #### [facility] [address] [place], [place], [id number] Hepatitis C Antibodyon 07-19 Hepatitis C Ab Non-Reactive Normal Nonreactive [facility] Comment on above: Result Comment: Reac tive: Presumptive evidence of antibodies to HCV. Follow CDC recommendations for supplemental testing. Non-Reactive: Antibodies to HCV were not detected; does not exclude the possibility of exposure to HCV Reactive Results are presumptive evidence of antibodies to HCV. Follow CDC recommendations for supplemental testing. Order confirmation testing: HCV Quant by PCR testing - HCVPCR #[id number] Non Reactive: < 0.8 Equivocal: >/= 0.8 to < 1.0 Reactive: >/= 1.0 The CDC requires that a reactive/equivocal HCV antibody result be sent out for confirmation. HCV Quant by PCR testing. Performed By: #### L 100.0100, M100.651, L3890.6006, L3890.6202, BTSPAT, L3100.0300, L3890.6301, L501.9985, L500.2500 #### [facility] [address] [place], [address] Magnesiumon 07-19-2024 Magnesium [Mass/Vol] 2.3 mg/dL High 1.5-2.2 [facility] Comment on above: Performed By: #### L 501.5200 #### [facility] [address] [place], [place], [address] Type AND Screen - PAT ONLYon 07-19-2024 Ab SCREEN GEL Negative Normal [facility] Comment on above: Order Comment: Surge ry Date: 07/31/24 Reason for Laboratory Test preop [id number] No N N S cervical disc replacement Performed By: #### L 100.0100, M100.651, L3890.6006, L3890.6202, BTSPAT, L3100.0300, L3890.6301, L501.9985, L500.2500 #### [facility] [address] [place], [address] Internal Medicine Office Vis iton 07-11-2024 Internal Medicine Office Visit [facility] [address] [place], [place] [address] OFFICE VISIT Date of Service: 07/11/24 MR#: [id number] Acct: [id number] Name: CLARITZA MARTIN Rep #: [id number] : 1980 Provider: RAJI Ho Age/Sex: 43/F Location: [facility] Status: Signed Intake Vital Signs 06/22/24 09:28 07/11/24 11:53 Height 5 ft 2.5 in 5 ft 2 in Weight: 134 lb 137 lb BMI 24.1 25.0 BP 112/82 H Blood Pressure Location Lt brachial Position Sitting Respiration 16 Pulse 86 Pulse Source Monitor Temp 97.8 F Temp Source Temporal Pulse Oximetry (%) 98 Oxygen Delivery Method room air Intake Visit Reasons: ACUTE 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 Díaz on 07/31/24. Has had disc replacement and a spinal fusion in the past, has no concerns. Pt already knows to stop nsaid use 2 weeks prior. 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 pets and animals: Yes pets and animals: cat(s), dog(s) and fish Smoking Status: Former smoker second hand exposure: No alcohol intake: current alcohol intake frequency: holidays/special occasions only details: On avg 1 drink once or twice a month substance use type: does not use caffeine: Yes Type: coffee Number of servings: 1 and other Number of servings: 1 what type of physical activity do you participate in: none frequency: does not exercise seatbelt use: always do you feel safe at home: Yes HPI HPI Details: CLARITZA MARTIN, is a 43 F who presents to the office today for surgical clearance. Patient is having a single level disc replacement at C3-C4. Patient has undergone 2 other cervical spine surgeries due to upper extremity symptoms. After the first surgery she states that she did well for about a year until the pains / numbness/tingling returned and led to another surgery in March of 2023. She states that after that surgery she really did not find any relief of her symptoms and thus is set to undergo a 3rds surgery on an adjacent level. She did not have any previous samantha-operative complications. Patient is set to have pre-anesthesia testing that will be conducted via telephone She states that she is constantly in pain in the neck and upper extremities and does limit her activities. Patient also had seen neurology for her symptoms and is going to undergo further evaluation / testing on the central nervous symptoms. Patient is not a smoker She has not been on chronic medications other than NSAIDS for the pain. They talked about gabapentin which she just did not feel comfortable doing. ROS Const Constitutional: No body ache, chills, excessive sweating, fatigue, fever(s), frequent falls, headache(s), snoring, weakness, sleep problems or change in appetite Eyes Eyes: No blurry vision, change in vision, eye pain or Light sensitivity ENT ENT: Positive for neck pain; No abnormal hearing, ear or mastoid pain, tinnitus, nasal congestion, headache(s) or sore throat Resp Respiratory: No cough, shortness of breath, snoring or wheezing Cardio Cardiology: No chest pain at rest, chest pain with exertion, excessive sweating, shortness of breath, dyspnea on exertion, lightheadedness, orthopnea or palpitations Gastro GI: No abdominal pain, change in bowel habits, constipation, cramping, diarrhea, nausea/dyspepsia or vomiting Genitourinary-Female: No burning urination, painful urination, urinary incontinence, urinary frequency, abnormal vaginal bleeding or pelvic pain Musc Musculoskeletal: Positive for limited range of motion and neck pain; No abnormal gait, joint pain, back pain or numbness Skin Skin: No dry ski (more content not included)... Normal [facility] Cerv Spine 4 or 5 Viewson Cerv Spine 4 or 5 Views [facility] Imaging Services [address] [place] [address] Cerv Spine 4 or 5 Views MR#: [id number] Acct: [id number] Name: CLARITZA MARTIN Rep #: [id number] : 1980 F 43 From: Codie birmingham MD PCP: Giuseppe Sav, [employer] Status: DEP AMB Study: Cerv Spine 4 or 5 Views Date of Exam: 06/22/24 Exam# [id number] Ordering Dr: Ely Salas PROCEDURE: CERV SPINE 4 OR 5 VIEWS 06/22/2024 REASON FOR EXAM: ONGOING PAIN TECHNIQUE: 4 views of the cervical spine. FINDINGS: Unremarkable cervical fusion metallic hardware at C5-C6 and C6-C7 levels. Grade 1 anterolisthesis of C3 on C4. Grade 1 anterolisthesis of C4 on C5. There are mild diffuse spondylotic changes. Findings are demonstrated to by diffuse disc space narrowing, osteophyte formation and degenerative endplate sclerosis. There is diffuse facet joint arthropathy with secondary bilateral neural foramina narrowing. No fracture or dislocation is seen. No aggressive lytic or blastic bony lesion is noted. RAD/Cerv Spine 4 or 5 Views IMPRESSION: Unremarkable cervical spinal fusion metallic hardware. No evidence of instability. Reading Location: [place] [address] CC: [employer] Giuseppe Ang; RAJI Jung Template Worker: Signed Normal [facility] Orthopedic Visit Reporton Orthopedic Visit Report [facility] [address] [place] [address] OFFICE VISIT Date of Service: 06/22/24 MR#: [id number] Acct: [id number] Name: CLARITZA MARTIN Rep #: [id number] : 1980 Provider: Dr. Dg Díaz MD Age/Sex: 43/F Location: [facility] Status: Signed Intake Vital Signs 06/01/24 09:29 06/22/24 09:28 Height 5 ft 2.5 in 5 ft 2.5 in Weight: 135 lb 134 lb BMI 24.3 24.1 BP 128/72 H Blood Pressure Location Lt brachial Position Sitting Respiration 16 Pulse 81 Pulse Source Monitor Temp 98.6 F Temp Source Temporal Pulse Oximetry (%) 100 Oxygen Delivery Method room air Intake Visit Reasons: CERVICAL SPINE Chief Complaint: Cervical spine Accompanied by: Is patient in pain?: Yes Pain scale (1-10): 3 Allergies cortisone Allergy (Intermediate, Verified 06/22/24 09:31) Rash Medications ???Medication ???Instructions ???Recorded ???Confirmed ???Type acetaminophen 325 mg tablet 325 mg PO ONCE PRN 05/18/24 History (Tylenol) ibuprofen 200 mg tablet (Advil) 200 mg PO Q6H PRN 05/18/24 5 History Have you fallen in the past year?: No PFSH Medical History Encounter to establish care Preventative health care Neuropathy Lump of right breast Surgical History H/O neck surgery Hx of right breast biopsy Hx of dilation and curettage Hx of tonsillectomy Hx of eye surgery Hx of hysterectomy Hx of cholecystectomy Family History Father Diabetes Hypertension Brother Diabetes Aunt Breast cancer Mother Osteoarthritis Social History household members: spouse and children current occupational status: employed 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 pets and animals: Yes pets and animals: cat(s), dog(s) and fish Smoking Status: Former smoker second hand exposure: No alcohol intake: current alcohol intake frequency: holidays/special occasions only details: On avg 1 drink once or twice a month substance use type: does not use caffeine: Yes Type: coffee Number of servings: 1 and other Number of servings: 1 what type of physical activity do you participate in: none frequency: does not exercise seatbelt use: always do you feel safe at home: Yes HPI CERVICAL SPINE Details: This documentation accurately reflects the service provided and the decisions made by me, Dr. Dg Díaz MD 06/22/24 0928. Part of today???s visit was documented by Jocelyne Foster MA and Valentine Harrington RN, acting as scribe. CLARITZA MARTIN is a 43 year old F here today for cervical spine pain. She complains of cervical spine pain that extends down in to her left shoulder. This has been going on for 15 months.She describes the pain as a sharp achy pain and at times she feels a shock like sensation.She has been experiencing numbness and tingling in both arms and both legs. She complains of numbness in her face and bilateral hands. She does experience muscle spasms in her hands. She does report recent issues with her balance, she feels off balance and has to catch herself so that she does not fall. She has tried oral steroids which were not helpful. She had a reaction to the injections in [address] Collins therefore she is not able to have anymore. She cannot use her left hand to bowl or play basketball. She does have proximal weakness in her arm/shoulder. She cannot carry anything that is heavy because it increases the pain. She drops items with her hands such as her keys. She reports two previous surgeries. The first was in April 2019 for a cervical disc replacement at C5-C6, the second surgery was a fusion at C6-C7 in March 2023. She has been in pain since this surgery. She did not have any issues swallowing after her surgeries.She denies diabetes or heart issues. She denies history of strokes. She does have nodules on her thyroid that are checked periodically with imaging. She had a brain scan recently that showed lesions consistent with MS. She has an appointment in July at [facility] with a neurologist for further evaluation. Ortho Exam General General: Yes no acute distress Neurologic: Yes alert Psychologic: Yes reasonable and appropriate Spine SPINE TESTING CERVICAL THORACIC LUMBAR Musculoskeletal Strength 0=absent - 5=normal Details: Examination of the neck shows right lower and left upper ACDF incision scars from prior surgery. Neurologic facial upper extremity shows 5 x 5 bilateral shows normal sensations in all doctors. Adarsh's is positive on the left. Romberg's is positive. Tandem (more content not included)... Normal [facility] Neurology Visit Reporton Neurology Visit Report [facility] [address] [place] [address] OFFICE VISIT Date of Service: 06/01/24 MR#: [id number] Acct: [id number] Name: CLARITZA MARTIN Rep #: [id number] : 1980 Provider: Dr. 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 Patient evaluated by me initially in April 06, 2024. Patient had a history of cervical fusion with redo at [facility] in the past year. Patient continued to have paresthesias involving right cheek, arms legs and trunk. She also notes paresthesias in the sacral distribution. She has decreased ability to control urine. She lacks perception for maturation. I requested an MRI of the brain that was performed here in [place] on 05/07/2024. MRI of cervical spine was also performed at that time. Results of the MRI of the brain as read by radiology suggested possible multiple sclerosis on the basis of very limited T2 findings. I personally reviewed the images and think that MR criteria not particularly supportive of multiple sclerosis. There are minimal changes which appear nonspecific to my. Patient also had an MRI of cervical spine same date. Neither the brain MRI or the cervical MRI was performed with contrast. Radiology reported no high-grade stenoses but postoperative changes at the level C5-6 noted. I reviewed images and agree that there is no high-grade stenosis of the vertebral canal. There does appear to be evidence of a herniated disc particularly to the right side with some displacement of the cervical cord. Cervical cord did not appear to have abnormal signal but the study is somewhat compromised by metal artifact due to her prior fusions. Nevertheless concern for possible spinal cord compromise and nerve root compromise to the right at the level of about C4- 5 C5-6 and C6-7 noted. Patient feels that her symptoms are progressive. Questions regarding possible causes for diffuse peripheral neuropathy or small fiber neuropathy included the fact that she is negative for connective tissue disease history and negative for autoimmune diseases and negative for diabetes and other metabolic disorders. No infectious etiologies appear to be present either. ROS: General: She denies recent viral illnesses. HEENT: No recent head trauma or injuries. She does have a recent ophthalmologic examination which indicated that she needed new glasses. Visual calvert will be performed at follow-up ophthalmology evaluation soon. Patient does have electrical shocks into her arms particularly the right arm when she flexes her neck and occasionally into the right leg. Respiratory: No recent respiratory illnesses no hemoptysis. Cardiac: No chest pain or palpitations Abdomen: Does not cough up blood vomit blood no abdominal pain : Patient reports no hematuria. She does have loss of sensation in the saddle like distribution. She has difficulty knowing when she empties her bladder. She appears to have at least possible neurogenic bladder. Extremities: No particular injuries. Skin: No rashes or lesions of skin. Neurologic: Denies seizures or strokes. Exam Const Other: BP 128/72 pulse 81 respiration 16 temperature 98.6 O2 sat 100% BMI is 24.7 Neurologic examination: Mental status: Awake alert oriented x 3. Memory language functions intact. Insight and judgment normal. Mood and affect appropriate. No hallucinations or delusions. Cognition appears completely intact. CN II-XII: Pupils equal round 4 mm in size. Visual calvert intact to confrontation. Pupils do appear to react. Extraocular muscles completely normal. No nystagmus. No ptosis. Cranial nerve V shows that she complains of a numb patch on the Maller aspect of the right face. Cranial nerve V otherwise normal bilaterally. Cranial nerve VII showed symmetric facial expression. Cranial nerve VIII intact hearing cranial nerve IX 10 show normal swallowing. Cranial nerve XI normal shoulder shrug cranial nerve XII tongue midline and functional. Motor exam: Normal bulk tone and strength all 4 extremities. Cerebellar testing: No cogwheeling rigidity tremor bradykinesia or ataxia. Reflexes: 2+ at biceps 2+ at knees toes 1+ at ankle downgoing bilaterally. Sensory exam: Patient reports paresthesias and numbness diffusely arms and legs. Also notes on trunk and reports changes in satellite distribution although I did not examine genitalia. Station gait normal. Romberg negative. Patient is able to reproduce Lhermit (more content not included)... Normal [facility] MR Thoracic spine WO and W c ontrast Tr[place] 05-25-2024 IMPRESSION: Minimal degenerative spondylosis without significant spinal canal or neuroforaminal stenosis, grossly unchanged in appearance from remote comparison 10/08/2014. Incidental 2.9 cm RIGHT adnexal cystic lesion. No follow-up indicated. Source: White Paper of the ACR Incidental Findings Commitee II on Adenexal Findings. J Am Paul Radiol 2013;10:675-681. Am College of Radiology 2013 Anatomic Thoracic/Lumbar Variant: None. L4-5 is considered the level of the iliac crest and assume there are 5 lumbar-type vertebrae. Template Worker: PSCB Transcribe Date/Time: May 25 2024 10:28A Dictated by : NYLA YATES MD This examination was interpreted and the report reviewed and electronically signed by: NYLA YATES MD on May 25 2024 10:36AM [facility] DIVISION OF RADIOLOGY * * *Final Report* * * DATE OF EXAM: May 25 2024 10:00AM [facility] 0326 - MRI THORACIC SPINE WO/W IVCON / PROCEDURE REASON: Demyelinating disease of central nervous system (HCC) * * * * Physician Interpretation * * * * EXAMINATION: MRI THORACIC SPINE WO/W IVCON CLINICAL HISTORY: Demyelinating disease of central nervous system (HCC) TECHNIQUE: Routine thoracic spine MR protocol with and without intravenous gadolinium. MQ: MTSWO_3 Contrast: IV administration of 6 ml of Elucirem COMPARISON: MRI thoracic spine 10/08/2014 RESULT: Counting reference: Craniocervical and lumbosacral junctions. For the purposes of this report, L4-5 is considered the level of the iliac crest and assume there are 5 lumbar-type vertebrae. Anatomic variant: None. Localizer images: Scattered intrahepatic T2 hyperintense presumed cysts. Trace pelvic ascites, likely physiologic. 2.9 cm RIGHT adnexal cystic lesion. Alignment: Alignment is anatomic. Cord : The visualized cord is within normal limits of signal intensity and morphology. No pathologic intradural enhancement or demonstrable volume loss. Bone marrow signal/fracture: No evidence of pathologic marrow infiltration. No evidence of prior fracture. Partially visualized lower cervical spine anterior fixation hardware. Multiple prominent Schmorl's nodes within the opposing T7-L2 endplates, similar to prior. Thoracic paraspinal soft tissues: The paraspinal soft tissues are within normal limits. Canal and foramina: Shallow disc bulge at T2-T3 and small eccentric RIGHT disc bulge at T4-T5 minimally effaces the thecal sac at these levels without spinal canal compromise. These findings appear grossly unchanged from 10/08/2014. No neural foraminal narrowing. DIVISION OF RADIOLOGY Provider, [facility] - 05/25/2024 * * *Final Report* * * DATE OF EXAM: May 25 2024 10:00AM [facility] 0326 - MRI THORACIC SPINE WO/W IVCON / PROCEDURE REASON: Demyelinating disease of central nervous system (HCC) * * * * Physician Interpretation * * * * EXAMINATION: MRI THORACIC SPINE WO/W IVCON CLINICAL HISTORY: Demyelinating disease of central nervous system (HCC) TECHNIQUE: Routine thoracic spine MR protocol with and without intravenous gadolinium. MQ: MTSWO_3 Contrast: IV administration of 6 ml of Elucirem COMPARISON: MRI thoracic spine 10/08/2014 RESULT: Counting reference: Craniocervical and lumbosacral junctions. For the purposes of this report, L4-5 is considered the level of the iliac crest and assume there are 5 lumbar-type vertebrae. Anatomic variant: None. Localizer images: Scattered intrahepatic T2 hyperintense presumed cysts. Trace pelvic ascites, likely physiologic. 2.9 cm RIGHT adnexal cystic lesion. Alignment: Alignment is anatomic. Cord : The visualized cord is within normal limits of signal intensity and morphology. No pathologic intradural enhancement or demonstrable volume loss. Bone marrow signal/fracture: No evidence of pathologic marrow infiltration. No evidence of prior fracture. Partially visualized lower cervical spine anterior fixation hardware. Multiple prominent Schmorl's nodes within the opposing T7-L2 endplates, similar to prior. Thoracic paraspinal soft tissues: The paraspinal soft tissues are within normal limits. Canal and foramina: Shallow disc bulge at T2-T3 and small eccentric RIGHT disc bulge at T4-T5 minimally effaces the thecal sac at these levels without spinal canal compromise. These findings appear grossly unchanged from 10/08/2014. No neural foraminal narrowing. IMPRESSION IMPRESSION: Minimal degenerative spondylosis without significant spinal canal or neuroforaminal stenosis, grossly unchanged in appearance from remote comparison 10/08/2014. Incidental 2.9 cm RIGHT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 oriented x 3. Memory is intact. Language shows normal time study analyst expression repetition. Insight and judgment is normal. CN II-XII: Pupils equal round react light 4 mm in size. Visual calvert full to confrontation. No diplopia at this moment. Extraocular muscles are intact. No nystagmus no ptosis. Motor function face appears symmetric and normal. Patient reports that she does have what appears to be paresthesia of the face but at the moment seems relatively minor. Range of motion of neck is limited in flexion extension. Patient reports intermittent mild Lhermitte's when she flexes her neck in the dorsal aspect of the right forearm. This would be in the distribution of the radial nerve. Motor examination shows normal bulk tone and strength all 4 extremities. Fine motor movements of the hands appear intact. Cerebellar testing showed normal finger-nose maneuvers no cogwheeling rigidity tremor or bradykinesia. Reflexes 1+ at biceps 1+ at knees trace at ankles patient does appear to have subtle Babinski's left greater than right. Sensory exam shows th (more content not included)... Normal [facility] CNCOon 08-04-2023 CNCO Letter Text Normal [facility] CNOVon 08-04-2023 CNOV Office Visit (ORTHLD ) CLARITZA MARTIN ([id number]) 1980 F Date Time Provider Department 08/04/23 1:40 PM LANEY CARROLL During your visit today, we recorded the following information about you: Laney Carroll PA-C 08/04/2023 3:42 PM Signed [facility] CHIEF COMPLAINT(CC): L shoulder pain HISTORY OF PRESENT ILLNESS (HPI): PAIN EVALUATION 08/04/2023 1202 08/04/2023 1344 Pain Level: 9 8 Pain Location: Shoulder-Left Shoulder-Left Description: Burning;Sharp;Shooting ;Stabbing Aching;Throbbing Duration Amount of Time: 1 1 Duration Units: Weeks Weeks Frequency: Continuous Continuous Intervention/Comfort measure: Medication;Relaxation; Cold;Heat;Positioning Medication Comments: -- tens unit, advil, tylenol Claritza De La Garza Mario is a 43-year-old female who comes in for a 1 week history of left shoulder pain. The patient states that she had gone bowling after she had a cervical fusion. She states she has a 6 pound ball did not feel any holding onto about the third toe. She is not sure if her pain came from her neck or her shoulder. She has been taking Tylenol, Advil and using a TENS unit with little improvement. She went to the urgent care earlier today and was given a Toradol injection with no improvement. She did see her primary care physician to who gave her a prescription for Zanaflex. She states it is helpful; however, it is making her very tired.. REVIEW OF SYMPTOMS (ROS): Constitutional: Any recent fevers? No Cardiovascular: Any chest pain? No Respiratory: Any shortness or breath? No Gastrointestinal: Any abdominal discomfort? No Integumentary: Any recent skin changes or rashes? No Neurologic: Any numbness or tingling? See Above Endocrine: Any diagnosis of diabetes? No Hematologic: Any recent bleeding episodes? No MEDICAL HISTORY: No pertinent PMH, PAST MEDICAL HISTORY Diagnosis Date Allergic rhinitis, cause unspecified Generalized anxiety disorder Major depressive disorder, recurrent episode, unspecified Migraine, unspecified, without mention of intractable migraine without mention of status migrainosus COMPLEX - had loss of vision (since returned but blurry at times) - CVA, MS ruled out - right pupil still often dilated vs. 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 . PHYSICAL EXAMINATION: Patient's vitals and nursing notes were reviewed. Vitals: [facility] 05/16/2011 Skin: Skin color, texture, turgor normal, no suspicious rashes or lesions noted Psychiatric: mood and affect are appropriate, patient is oriented to time, place and person General Appearance: Well appearing, alert, in no acute distress, well-hydrated, and well nourished Cardiovascular: pedal pulses and radial pulses normal, no signs of upper or lower extremity edema Respiratory: no respiratory distress, no audible wheezing, no labored breathing, symmetric thoracic excursion Neurologic: bilateral deep tendon reflexes are normal and symmetric with no pathologic reflexes, sensation is grossly intact Lymphatic: no lymph node enlargement noted in the examined area Musculoskeletal Examination: Examination of the left shoulder: Inspection: normal cervical posture, shoulder alignment, and no joint deformities or swelling noted Shoulder Range of Motion: Flexion: poor effort secondary to pain Abduction: poor effort secondary to pain Internal rotation: 90 External rotation: 110 Apley scratch test (internal rotation): Right arm: patient able to reach to T11 Left arm: patient able to reach to L1 SC JOINT: no tenderness to palpation AC JOINT: no tenderness to palpation Scapula exam: normal examination of scapula with no dyskinetic motion noted Nirali Test / Empty Can Test (supraspinatus): global pain elicited which is nonspecific for this examination Resisted lateral rotation test (infraspinatus): global pain elicited which is nonspecific for this examination Belly press test (subscapualris): global pain elicited which is nonspecific for this examination Jacob's test: positive for pain with thumb down, relieved with thumb up Yergason's test: global pain elicited which is nonspecific for this examination Morris test: global pain elicited which is nonspecific for this examination Neer test: global pain elicited which is nonspecific for this examination IMAGING: Final results and radiologist's interpretation, available in the [facility] health record. Images were reviewed with the patient/family members in the office today. My personal interpretation of the performed imaging is no acute abnormality. ASSESSMENT: Acute pain of left shoulder PLAN: A prescription for Prednisone was sent to the pharmacy. Physical therapy was ordered. It is recommended that the patient follow up in 12 weeks for possible furth (more content not included)... Normal [facility] CNOV Office Visit (WSTR ) CLARITZA MARTIN ([id number]) 1980 F Date Time Provider Department 08/04/23 8:15 AM CORETTA PARKINSON [facility] During your visit today, we recorded the following information about you: Temperature Pulse Respiration Blood pressure 98.7 degrees 71/minute 18/minute 149/99 Weight 61.4 kg Coretta Parkinson APRN.CNP 08/04/2023 9:02 AM Signed This note was created using NoteWriter. Subjective Claritza Martin is a 42 year old female. 42 year old female with PMH migraine, RLS, anxiety, cervical fusion presents for shoulder pain. Acute onset approximately one week ago Endorses that she went bowling. States she started to feel pain in left shoulder as she was bowling States that she used a 6lb ball She quit after the first game related to feeling discomfort Presents today related to continued pain left shoulder Denies CP Denies dyspnea Denies lightheadedness or dizziness Denies neck or back pain February she had c6 and c 7 fusino She had repair c5 2019 Pain is worse at night Unable to lift arm above head Has used ice, heat, and advil Has used Voltaren and TENS unit without relief She has home muscle relaxer that are not helping Also endorses that steroids she does not tolerate The history is provided by the patient. No assistant speech language pathologist was used. PAST MEDICAL HISTORY Diagnosis Date Allergic rhinitis, cause unspecified Generalized anxiety disorder Major depressive disorder, recurrent episode, unspecified Migraine, unspecified, without mention of intractable migraine without mention of status migrainosus COMPLEX - had loss of vision (since returned but blurry at times) - CVA, MS ruled out - right pupil still often dilated vs. 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 PAST SURGICAL HISTORY Procedure Laterality Date ADENOIDECTOMY PRIMARY Adenoidectomy BX BREAST PERC NEED W/GUID 11/24/2012 U/S needle core bx right breast 8 O'clock DILATION AND CURETTAGE DXAND/THER NONOBSTETRIC 07/15/2006 for miscarriage LAPAROSCOPY SURG CHOLECYSTECTOMY 03/21/2015 Cholecystectomy, lap NEUROPLASTY AND/TRANSPOSITION ULNAR NERVE ELBOW Left 11/25/2021 Left ulnar nerve decompression PAST SURGICAL HISTORY OF 04/2020 disc replacement surgery between c5 and c6 STRABISM SURG,PREV EYE SURG,NOT MUSC 1987,1997 eye surgery-left TONSILLECTOMY PRIMARY/SECONDARY Tonsillectomy VAGINAL HYSTERECTOMY UTERUS 250 GM/< 02/14/2011 ALLERGIES Cortisone MEDICATIONS tiZANidine (ZANAFLEX) 4 mg tablet diclofenac (VOLTAREN) 1 % topical gel Apply to affected area four times daily. acetaminophen (TYLENOL) 325 mg tablet 2 tablets by ORAL/FEEDING TUBE route every 6 hours as needed for pain. MULTIVITAMIN ORAL Take by mouth once daily. methocarbamol (ROBAXIN) 750 mg tablet Take 1 tablet by mouth every 6 hours as needed (Muscle spasms / pain). (Patient not taking: Reported on 08/04/2023) benzocaine-menthol (CHLORASEPTIC) 6-10 mg lozenges Use 1 Lozenge as instructed every 2 hours as needed. (Patient not taking: Reported on 08/04/2023) senna-docusate (SENNA-S) 8.6-50 mg per tablet Take 2 tablets by mouth two times a day as needed for constipation. (Patient not taking: Reported on 08/04/2023) FAMILY HISTORY Problem Relation Age of Onset Arthritis Mother Diabetes Father Hypertension Father Lipids Father Colon Cancer Maternal Grandmother Diabetes Paternal Grandmother Heart Paternal Grandmother Diabetes Paternal Grandfather Ischemic Heart Disease Paternal Grandfather OR and CVA Breast Cancer Maternal Aunt dx age 40's Colon Cancer Paternal Aunt dx age 30's Cancer Other cousin-uterine cancer other (migraine) Brother Cervical Cancer Other maternal cousin Social History Tobacco Use Smoking status: Former Packs/day: 0.25 Years: 8.00 Additional pack years: 0.00 Total pack years: 2.00 Types: Cigarettes Quit date: 2017 Years since quittin.4 Smokeless tobacco: Never Tobacco comments: Smoked occassionally for 5 yrs. Vaping Use Vaping Use: Never used Substance Use Topics Alcohol use: Yes Comment: 1/month Drug use: No Review of Systems Constitutional: Negative for chills, diaphoresis, fatigue and fever. Respiratory: Negative for apnea, cough, choking, chest tightness and shortness of breath. Cardiovascular: Negative for chest pain, palpitations and leg swelling. Gastrointestinal: Negative for abdominal pain, diarrhea, nausea and vomiting. Musculoskeletal: Left shoulder pain Skin: Negative for color change, pallor, rash and wound. Allergic/Immunologic: Negative for environmental allergies, food allergies and immunocompromised state. Neurological: Negative for dizziness, seizures, facial asymmetry, light-headedness, numbness and headaches. Hematological: Negative for a (more content not included)... [facility]YA [facility] (ORTHLD) CHICO MARTINANDA L ([id number]) 1980 F Date Time Provider Department 08/04/23 LANEY CARROLL During your visit today, we recorded the following information about you: Archana Kwok, CT 08/04/2023 12:33 PM Signed Called patient to discuss appointment this afternoon. She was seen in [facility] earlier today at 8:20am and scheduled to see Leslie this afternoon at 1:40pm in orthopedics. Leslie advised me to call the patient and let her know that it is a possibility that one of these 2 visits may not be covered by her insurance, and to give the patient the option to come in or reschedule. Patient elected to come into the office this afternoon. Will f/u as scheduled/PRN, Vonnie Francois Allergies As of Date: 08/04/2023 Noted Allergy Reaction CORTISONE 11/18/2021 4 - Hives Comments: Reaction to injection Date Reviewed: 08/04/2023 Reviewed by: Jessica Orr MA - Fully Assessed Prescriptions as of 08/04/2023 - tiZANidine (ZANAFLEX) 4 mg tablet - diclofenac (VOLTAREN) 1 % topical gel Apply to affected area four times daily. - methocarbamol (ROBAXIN) 750 mg tablet Take 1 tablet by mouth every 6 hours as needed (Muscle spasms / pain). - acetaminophen (TYLENOL) 325 mg tablet 2 tablets by ORAL/FEEDING TUBE route every 6 hours as needed for pain. - benzocaine-menthol (CHLORASEPTIC) 6-10 mg lozenges Use 1 Lozenge as instructed every 2 hours as needed. - senna-docusate (SENNA-S) 8.6-50 mg per tablet Take 2 tablets by mouth two times a day as needed for constipation. - MULTIVITAMIN ORAL Take by mouth once daily. 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.119] 01/11/2007 09/14/2007 ASTHMA UNSPECIFIED [J45.909] MYALGIA AND MYOSITIS NOS [[id number]] MIGRAINE NOS W/O MENTN INTRACTABLE [G43.909] 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] Supervision of other normal [Z34.80] 07/16/2008 09/27/2011 Supervision of other high-risk [O09.8*07/16/2008 09/27/2011 Abdominal pain, generalized [R10.84] 07/16/2008 09/27/2011 Unspecified symptom associated with female renu*07/16/2008 09/27/2011 Lump or mass in breast [N63.0] 11/24/2012 Midline low back pain with sciatica [M54.40] 12/16/2014 Midline thoracic back pain [M54.6] 12/16/2014 Myofascial pain [M79.18] 12/16/2014 RUQ pain [R10.11] 03/14/2015 Biliary colic [K80.50] 03/14/2015 Former smoker [Z87.891] 03/17/2023 Cervical radiculopathy [M54.12] 03/28/2023 Cervical spondylosis with myelopathy [M47.12] 03/29/2023 S/P cervical spinal fusion [Z98.1] 03/29/2023 Acute postoperative pain [G89.18] 03/29/2023 Encounter Status:Closed by ARCHANA KWOK on 08/04/[address] [facility] XR SHLDR >/=3V AP/KIANA AP/OTH R LTon 08-04-2023 XR SHLDR >/=3V AP/KIANA AP/OTHR LT * * *Final Report* * * DATE OF EXAM: Aug 04 2023 8:34AM WOX [id number] - XR SHLDR >/=3V AP/KIANA AP/OTHR LT / PROCEDURE REASON: Acute pain of left shoulder * * * * Physician Interpretation * * * * EXAMINATION: XR SHLDR >/=3V AP/KIANA AP/OTHR LT CLINICAL HISTORY: Acute left shoulder pain Technique: XR SHLDR >/=3V AP/KIANA AP/OTHR LT -- LEFT with 3 views on 3 images Comparison: None RESULT: No acute fracture or dislocation. Joint spaces are maintained. IMPRESSION: No acute osseous abnormality Template Worker: PSCB Transcribe Date/Time: Aug 04 2023 8:44A Dictated by : LIDIA DEJESUS MD This examination was interpreted and the report reviewed and electronically signed by: LIDIA DEJESUS MD on Aug 04 2023 8:45AM EST [id number] Normal [facility] XR Shoulder - left 3 Viewson 08-04-2023 IMPRESSION: No acute osseous abnormality Template Worker: PSC Transcribe Date/Time: Aug 04 2023 8:44A Dictated by : LIDIA DEJESUS MD This examination was interpreted and the report reviewed and electronically signed by: LIDIA DEJESUS MD on Aug 04 2023 8:45AM EST DIVISION OF RADIOLOGY * * *Final Report* * * DATE OF EXAM: Aug 04 2023 8:34AM WOX 5252 - XR SHLDR >/=3V AP/KIANA AP/OTHR LT / PROCEDURE REASON: Acute pain of left shoulder * * * * Physician Interpretation * * * * EXAMINATION: XR SHLDR >/=3V AP/KIANA AP/OTHR LT CLINICAL HISTORY: Acute left shoulder pain Technique: XR SHLDR >/=3V AP/KIANA AP/OTHR LT -- LEFT with 3 views on 3 images Comparison: None RESULT: No acute fracture or dislocation. Joint spaces are maintained. DIVISION OF RADIOLOGY Provider, [facility] - 08/04/2023 * * *Final Report* * * DATE OF EXAM: Aug 04 2023 8:34AM WOX 5252 - XR SHLDR >/=3V AP/KIANA AP/OTHR LT / PROCEDURE REASON: Acute pain of left shoulder * * * * Physician Interpretation * * * * EXAMINATION: XR SHLDR >/=3V AP/KIANA AP/OTHR LT CLINICAL HISTORY: Acute left shoulder pain Technique: XR SHLDR >/=3V AP/KIANA AP/OTHR LT -- LEFT with 3 views on 3 images Comparison: None RESULT: No acute fracture or dislocation. Joint spaces are maintained. IMPRESSION IMPRESSION: No acute osseous abnormality Template Worker: [facility] Transcribe Date/Time: Aug 04 2023 8:44A Dictated by : LIDIA DEJESUS MD This examination was interpreted and the report reviewed and electronically signed by: LIDIA DEJESUS MD on Aug 04 2023 8:45AM EST [facility] Radiology Study observation (narrative) [facility] XR Shoulder - left 3 ViewsOr dered By: [facility] Provider on 08-04-2023 [facility] MR Cervical spine WO contras ton 07-04-2023 IMPRESSION: Postoperative changes related to C6-C7 anterior cervical disc fusion with improved spinal canal patency relative to the prior MRI. Similar postoperative changes related to C5-C6 interbody device placement. No clear high-grade spinal canal stenosis and no apparent high-grade neuroforaminal stenosis within the constraints of susceptibility artifact from hardware largely obscuring the spinal canal and neural foramina at C5-C6. Cervical Anatomic Variant: None. Assume 7 cervical vertebrae with counting from the craniocervical junction. Template Worker: [facility] Transcribe Date/Time: Jul 04 2023 10:13A Dictated by : MALINDA ETIENNE MD This examination was interpreted and the report reviewed and electronically signed by: MALINDA ETIENNE MD on Jul 04 2023 10:30AM EST DIVISION OF RADIOLOGY * * *Final Report* * * DATE OF EXAM: Jul 04 2023 8:30AM [facility] [id number] - MRI CERVICAL SPINE WO IVCON / PROCEDURE REASON: multiple diagnoses * * * * Physician Interpretation * * * * EXAMINATION: MRI CERVICAL SPINE WO IVCON Clinical history: As provided by the ordering clinician via order question entries: Spinal stenosis, spondylolisthesis, torticollis, radiculopathy, trauma. Spinal stenosis, cervical. Spinal stenosis of cervical region S/P cervical spinal fusion S/P cervical disc replacement. Bilateral hand numbness. Stated history: Prev sx, headaches, dizziness, pain in neck/both shoulders, n/t 4th/5th fingers of rt hand. TECHNIQUE: Routine cervical spine MR protocol without gadolinium. MQ: [id number] COMPARISON: 06/17/2023 cervical spine radiographs, imported 01/14/[address], and imported 11/15/2022 cervical spine MRI RESULT: Counting reference: Craniocervical junction. Anatomic Variants: None. Alignment: Alignment is anatomic Craniocervical junction: Craniocervical junction is normal. Small roughly 1 centimeter sized inferiorly projecting exostosis along the left occipital calvarium (series 6, image 3). Cord: No definitive abnormal intramedullary cord signal changes within the constraints of susceptibility artifact from the interbody hardware largely obscuring the cord at the level of C5-C6. No apparent cord volume loss. Postoperative change: Susceptibility related to interbody device at C5-C6 and anterior cervical disc fusion hardware spanning C6-C7 with underlying interbody graft. Bone marrow signal/fracture: No apparent pathologic marrow infiltration. No findings to suggest sequelae of acute or chronic fracture. Cervical soft tissues: Right paramedian predominant heterogenous areas of susceptibility related to the operative approach for the aforementioned postoperative changes. Subcentimeter nodule along the inferior lobe of the left thyroid gland. Otherwise unremarkable appearance of the cervical soft tissues. C2-C3: Canal and foramina are patent. C3-C4: Canal and foramina are patent. C4-C5: Canal and foramina are patent. C5-C6: Canal and foramina are largely obscured. C6-C7: Patent spinal canal, improved from the 11/15/2022 MRI with no residual of the previously seen caudally extending central disc extrusion following interval operative intervention. Suboptimal neural foraminal assessment without apparent high-grade neuroforaminal stenosis. C7-T1: Canal and foramina are patent. Localizer images: Noncontributory DIVISION OF RADIOLOGY Provider, [facility] - 07/04/2023 * * *Final Report* * * DATE OF EXAM: Jul 04 2023 8:30AM [facility] 0297 - MRI CERVICAL SPINE WO IVCON / PROCEDURE REASON: multiple diagnoses * * * * Physician Interpretation * * * * EXAMINATION: MRI CERVICAL SPINE WO IVCON Clinical history: As provided by the ordering clinician via order question entries: Spinal stenosis, spondylolisthesis, torticollis, radiculopathy, trauma. Spinal stenosis, cervical. Spinal stenosis of cervical region S/P cervical spinal fusion S/P cervical disc replacement. Bilateral hand numbness. Stated history: Prev sx, headaches, dizziness, pain in neck/both shoulders, n/t 4th/5th fingers of rt hand. TECHNIQUE: Routine cervical spine MR protocol without gadolinium. MQ: [id number] COMPARISON: 06/17/2023 cervical spine radiographs, imported 01/14/[address], and imported 11/15/2022 cervical spine MRI RESULT: Counting reference: Craniocervical junction. Anatomic Variants: None. Alignment: Alignment is anatomic Craniocervical junction: Craniocervical junction is normal. Small roughly 1 centimeter sized inferiorly projecting exostosis along the left occipital calvarium (series 6, image 3). Cord: No definitive abnormal intramedullary cord signal changes within the constraints of susceptibility artifact from the interbody hardware largely obscuring the cord at the level of C5-C6. No apparent cord volume loss. Postoperative change: Susceptibility related to interbody device at C5-C6 and anterior cervical disc fusion hardware spanning C6-C7 with underlying interbody graft. Bone marrow signal/fracture: No apparent pathologic marrow infiltration. No findings to suggest sequelae of acute or chronic fracture. Cervical soft tissues: Right paramedian predominant heterogenous areas of susceptibility related to the operative approach for the aforementioned postoperative changes. Subcentimeter nodule along the inferior lobe of the left thyroid gland. Otherwise unremarkable appearance of the cervical soft tissues. C2-C3: Canal and foramina are patent. C3-C4: Canal and foramina are patent. C4-C5: Canal and foramina are patent. C5-C6: Canal and foramina are largely obscured. C6-C7: Patent spinal canal, improved from the 11/15/2022 MRI with no residual of the previously seen caudally extending central disc extrusion following interval operative intervention. Suboptimal neural foraminal assessment without apparent high-grade neuroforaminal stenosis. C7-T1: Canal and foramina are patent. Localizer images: Noncontributory IMPRESSION IMPRESSION: Postoperative changes related to C6-C7 anterior cervical disc fusion with improved spinal canal patency relative to the prior MRI. Similar postoperative changes related to C5-C6 interbody device placement. No clear high-grade spinal canal stenosis and no apparent high-grade neuroforaminal stenosis within the constraints of susceptibility artifact from hardware largely obscuring the spinal canal and neural foramina at C5-C6. Cervical Anatomic Variant: None. Assume 7 cervical vertebrae with counting from the craniocervical junction. Template Worker: ALETA Transcribe Date/Time: May 20 2024 10:13A Dictated by : MALINDA ETIENNE MD This examination was interpreted and the report reviewed and electronically signed by: MALINDA ETIENNE MD on Jul 04 2023 10:30AM EST [facility] Radiology Study observation (narrative) [facility] MR Cervical spine WO contras tOrdered By: [facility] Provider on 07-04-2023 [facility] MRI CERVICAL SPINE WO IVCONo n 07-04-2023 MRI CERVICAL SPINE WO IVCON * * *Final Report* * * DATE OF EXAM: Jul 04 2023 8:30AM [facility] 0297 - MRI CERVICAL SPINE WO IVCON / PROCEDURE REASON: multiple diagnoses * * * * Physician Interpretation * * * * EXAMINATION: MRI CERVICAL SPINE WO IVCON Clinical history: As provided by the ordering clinician via order question entries: Spinal stenosis, spondylolisthesis, torticollis, radiculopathy, trauma. Spinal stenosis, cervical. Spinal stenosis of cervical region S/P cervical spinal fusion S/P cervical disc replacement. Bilateral hand numbness. Stated history: Prev sx, headaches, dizziness, pain in neck/both shoulders, n/t 4th/5th fingers of rt hand. TECHNIQUE: Routine cervical spine MR protocol without gadolinium. MQ: [id number]_3 COMPARISON: 06/17/2023 cervical spine radiographs, imported 01/14/[address], and imported 11/15/2022 cervical spine MRI RESULT: Counting reference: Craniocervical junction. Anatomic Variants: None. Alignment: Alignment is anatomic Craniocervical junction: Craniocervical junction is normal. Small roughly 1 centimeter sized inferiorly projecting exostosis along the left occipital calvarium (series 6, image 3). Cord: No definitive abnormal intramedullary cord signal changes within the constraints of susceptibility artifact from the interbody hardware largely obscuring the cord at the level of C5-C6. No apparent cord volume loss. Postoperative change: Susceptibility related to interbody device at C5-C6 and anterior cervical disc fusion hardware spanning C6-C7 with underlying interbody graft. Bone marrow signal/fracture: No apparent pathologic marrow infiltration. No findings to suggest sequelae of acute or chronic fracture. Cervical soft tissues: Right paramedian predominant heterogenous areas of susceptibility related to the operative approach for the aforementioned postoperative changes. Subcentimeter nodule along the inferior lobe of the left thyroid gland. Otherwise unremarkable appearance of the cervical soft tissues. C2-C3: Canal and foramina are patent. C3-C4: Canal and foramina are patent. C4-C5: Canal and foramina are patent. C5-C6: Canal and foramina are largely obscured. C6-C7: Patent spinal canal, improved from the 11/15/2022 MRI with no residual of the previously seen caudally extending central disc extrusion following interval operative intervention. Suboptimal neural foraminal assessment without apparent high-grade neuroforaminal stenosis. C7-T1: Canal and foramina are patent. Localizer images: Noncontributory IMPRESSION: Postoperative changes related to C6-C7 anterior cervical disc fusion with improved spinal canal patency relative to the prior MRI. Similar postoperative changes related to C5-C6 interbody device placement. No clear high-grade spinal canal stenosis and no apparent high-grade neuroforaminal stenosis within the constraints of susceptibility artifact from hardware largely obscuring the spinal canal and neural foramina at C5-C6. Cervical Anatomic Variant: None. Assume 7 cervical vertebrae with counting from the craniocervical junction. Template [facility] Transcribe Date/Time: Jul 04 2023 10:13A Dictated by : MALINDA ETIENNE MD This examination was interpreted and the report reviewed and electronically signed by: MALINDA ETIENNE MD on Jul 04 2023 10:30AM EST [id number] Normal [facility] CNTHERAPYon 06-20-2023 CNTHERAPY OT/PT/Speech Visit (PTWS) CLARITZA MARTIN ([id number]) 1980 F Date Time Provider Department 06/20/23 3:30 PM JUNE HILLS PTWS Date Time Provider Department Center 06/20/2023 3:30 PM [id number], MARIAH PTCHRISTOPHER Reaves Reason for Visit: PT Discharge [752] Primary Visit Diagnosis:S/P cervical spinal fusion [Z98.1] Allergies As of Date: 06/20/2023 Noted Allergy Reaction CORTISONE 11/18/2021 4 - Hives Comments: Reaction to injection Date Reviewed: 03/28/2023 Reviewed by: Jen Herrera RN - Fully Assessed Prescriptions as of 10/12/2023 - gabapentin (NEURONTIN) 300 mg capsule Take 1 capsule by mouth daily at bedtime for 30 days. - tiZANidine (ZANAFLEX) 4 mg tablet - diclofenac (VOLTAREN) 1 % topical gel Apply to affected area four times daily. - predniSONE (DELTASONE) 10 mg tablet 50 mg for 3 days, followed by 30 mg for 3 days, followed by 10 mg for 3 days. - methocarbamol (ROBAXIN) 750 mg tablet Take 1 tablet by mouth every 6 hours as needed (Muscle spasms / pain). - acetaminophen (TYLENOL) 325 mg tablet 2 tablets by ORAL/FEEDING TUBE route every 6 hours as needed for pain. - benzocaine-menthol (CHLORASEPTIC) 6-10 mg lozenges Use 1 Lozenge as instructed every 2 hours as needed. - senna-docusate (SENNA-S) 8.6-50 mg per tablet Take 2 tablets by mouth two times a day as needed for constipation. - MULTIVITAMIN ORAL Take by mouth once daily. Instructional Supervisor: Addendum Therapy (PT/OT/Speech/Resp) ID: [id number] 06/20/2023 4:02 PM Author: JUNE HILLS Signed by JUNE HILLS DISPLAY CARVER on 06/20/2023 at 4:02 PM * * * This document replaces document [id number] * * * Document text: Program_ID:[id number] Access Code: [email or web address] URL: [email or web address]/ Date: 06-20-2023 Prepared By: Coretta Moore Program Notes Exercises - Doorway Pec Stretch at 60 Degrees Abduction with Arm Straight - 3 x daily - 7 x weekly - 3 sets - 1 reps - Single Arm Doorway Pec Stretch at 90 Degrees Abduction - 3 x daily - 7 x weekly - 3 sets - 1 reps - Seated Cervical Retraction - 2 x daily - 7 x weekly - 4 sets - 10 reps - Ulnar Nerve/Median Loretto- Low Level - 1 x daily - 7 x weekly - 1-2 sets - 10 reps -- Normal [facility] THERAPY NTon 06-20-2023 THERAPY NT HNO ID: [id number] Author: JUNE HILLS PTA Service: ? Author Type: Optical Lathe Operator Type: Therapy (PT/OT/Speech/Resp) Filed: 06/20/2023 16:01 Note Text: Program_ID:[id number] Access Code: [email or web address] URL: [email or web address]/ Date: 06-20-2023 Prepared By: Coretta Moore Program Notes Exercises - Doorway Pec Stretch at 60 Degrees Abduction with Arm Straight - 3 x daily - 7 x weekly - 3 sets - 1 reps - Single Arm Doorway Pec Stretch at 90 Degrees Abduction - 3 x daily - 7 x weekly - 3 sets - 1 reps - Seated Cervical Retraction - 2 x daily - 7 x weekly - 4 sets - 10 reps - Ulnar Nerve/Median Loretto- Low Level - 1 x daily - 7 x weekly - 1-2 sets - 10 reps Normal [facility] XR CERVICAL 4V AP/LAT/FLX/EX Ton 06-17-2023 XR CERVICAL 4V AP/LAT/FLX/EXT * * *Final Report* * * DATE OF EXAM: Jun 17 2023 4:33PM [facility] [id number] - XR CERVICAL 4V AP/LAT/FLX/EXT / PROCEDURE REASON: multiple diagnoses * * * * Physician Interpretation * * * * EXAM TITLE: XR CERVICAL 4V AP/LAT/FLX/EXT EXAM DATE/TIME: 06/17/2023 4:33 PM COMPARISON: X-ray cervical spine on 40 11/04/2023 CLINICAL INDICATION/HISTORY: Cervical radiculopathy. TECHNIQUE: AP, lateral, lateral extension, lateral flexion views of the cervical spine are presented. FINDINGS: No fractures or subluxations are noted. No change in alignment of the cervical spine with lateral extension and lateral flexion. Status post C6-7 anterior spinal fusion, with interbody disc spacer/bone graft. Also seen is C5-6 discectomy with disc spacer. The other disc spaces are well preserved. There is no significant osteophyte formation. The prevertebral soft tissues are normal. IMPRESSION: Overall findings unchanged. Template Worker: [facility] Transcribe Date/Time: Jun 22 2023 9:52A Dictated by : JOYCE NEGRO MD This examination was interpreted and the report reviewed and electronically signed by: JOYCE NEGRO MD on Jun 22 2023 9:57AM EST [id number] Normal [facility] CNTHERAPYon 06-14-2023 CNTHERAPY OT/PT/Speech Visit (PTWS) CLARITZA MARTIN ([id number]) 1980 F Date Time Provider Department 06/14/23 4:30 PM CORETTA MOORE Date Time Provider Department Center 06/14/2023 4:30 PM [id number] MOORE Reason for Visit: Physical Therapy [503] Primary Visit Diagnosis:S/P cervical spinal fusion [Z98.1] Allergies As of Date: 06/14/2023 Noted Allergy Reaction CORTISONE 11/18/2021 4 - Hives Comments: Reaction to injection Date Reviewed: 03/28/2023 Reviewed by: Jen Herrera, DIRK - Fully Assessed Prescriptions as of 06/14/2023 - methylPREDNISolone (MEDROL, SANDRA,) 4 mg Dose-Pack See package instructions - methocarbamol (ROBAXIN) 750 mg tablet Take 1 tablet by mouth every 6 hours as needed (Muscle spasms / pain). - acetaminophen (TYLENOL) 325 mg tablet 2 tablets by ORAL/FEEDING TUBE route every 6 hours as needed for pain. - benzocaine-menthol (CHLORASEPTIC) 6-10 mg lozenges Use 1 Lozenge as instructed every 2 hours as needed. - senna-docusate (SENNA-S) 8.6-50 mg per tablet Take 2 tablets by mouth two times a day as needed for constipation. - MULTIVITAMIN ORAL Take by mouth once daily. Instructional Supervisor: Addendum Therapy (PT/OT/Speech/Resp) ID: [id number] 06/14/2023 4:51 PM Author: CORETTA MOORE Signed by CORETTA MOORE PT on 06/14/2023 at 4:51 PM * * * This document replaces document [id number] * * * Document text: Program_ID:[id number] Access Code: [email or web address] URL: [email or web address]/ Date: 06-14-2023 Prepared By: Coretta Moore Program Notes Exercises - Doorway Pec Stretch at 60 Degrees Abduction with Arm Straight - 3 x daily - 7 x weekly - 3 sets - 1 reps - Single Arm Doorway Pec Stretch at 90 Degrees Abduction - 3 x daily - 7 x weekly - 3 sets - 1 reps - Seated Cervical Retraction - 2 x daily - 7 x weekly - 4 sets - 10 reps -- Normal [facility] THERAPY NTon 06-14-2023 THERAPY NT HNO ID: [id number] Author: CORETTA MOORE PT Service: ? Author Type: Physical Therapist Type: Therapy (PT/OT/Speech/Resp) Filed: 06/14/2023 16:36 Note Text: Program_ID:[id number] Access Code: [email or web address] URL: [email or web address]://[email or web address] [email or web address]/ Date: 06-14-2023 Prepared By: Coretta Moore Program Notes Exercises - Supine Chin Tuck - 2 x daily - 7 x weekly - 4 sets - 10 reps - Seated Gentle Upper Trapezius Stretch - 2 x daily - 7 x weekly - 3 sets - 1 reps - Doorway Pec Stretch at 60 Degrees Abduction with Arm Straight - 3 x daily - 7 x weekly - 3 sets - 1 reps - Single Arm Doorway Pec Stretch at 90 Degrees Abduction - 3 x daily - 7 x weekly - 3 sets - 1 reps Normal [facility] [id number] 06-07-2023 [id number] HNO ID: [id number] Author: CORETTA MOORE PT Service: ? Author Type: Physical Therapist Type: [id number] Filed: 06/07/2023 16:23 Note Text: [facility] Therapy Physical Therapy Plan of Care Certification Patient Name: Claritza Martin : 1980 [facility] #: [id number] Date: 06/07/2023 To: Mariam Weaver MD From Therapist: Coretta Moore PT RE: Patient Certification/ Recertification Your review, approval and electronic signature are required in order to comply with Payor: [employer] / Plan: [employer] POS / Product Type: POS / regulations. The identified Physical Therapy PLAN OF CARE for the patient is as follows: Z98.1 S/P cervical spinal fusion (primary encounter diagnosis) PLAN OF CARE: Assessment: Claritza Martin presents with diagnosis of s/p cervical spinal fusion that interferes with bending, running, driving, sleeping, lifting, working . She presents with impairments in ADL's, flexibility, independence in exercise, joint mobility, overall function, patient reported outcome measures, posture, range of motion, strength, stress management, symptom management, and tissue tenderness. PROMIS? (Patient-Reported Outcomes Measurement Information System) scores were reviewed and identified as a rehabilitation concern. Prognosis for therapy is Good due to: acuteness of condition, current objective clinical presentation, good overall health status . She will benefit from skilled therapy services to meet the goals established for this plan of care as noted below. Goals for Episode of Care: created on 06/07/23 through 07/19/23 Independent in a Home Exercise Program. Patient will decrease pain to 1-2/10 with functional activities to allow patient to improve tolerance for ADLs. Restore pain free cervical ROM to minimal to no limitation grossly to allow for ADLs. Drive with no aggravation of pain/symptoms. Sleep throughout the night without pain/symptoms. Sit 4-6 hours without pain/symptoms to allow for seated work activities. Patient Goals: reduce pain with work and ADLs. Planned Interventions, Frequency, and Duration: Current Frequency: 1x/week Duration: 5 weeks Total Number of Visits Planned: 5 Planned Treatment Interventions: Therapeutic exercise (36468), Neuromuscular re-education (83941), Manual therapy (46281), Therapeutic activities (07445), Self-group home management (72850), Gait Training (70016) PLAN FOR NEXT VISIT: continue supine cervical retraction, add scapular and cervical isometrics Patient demonstrates good understanding of plan of care and treatment. The above goals and plan of care were discussed and agreed upon by patient/family. For further details regarding this patient refer to the Physical Therapy electronically documented visit dated 06/07/2023. Provider Attestation I have reviewed the treatment plan for Claritza Martin, [facility]# [id number] for the period of 06/07/23 -- 07/12/23, established on 06/07/2023. Signature certifies the need for therapy services. Normal [facility] CNTHERAPYon 06-07-2023 CNTHERAPY OT/PT/Speech Visit (PTWS) CLARITZA MARTIN ([id number]) 1980 F Date Time Provider Department 06/07/23 3:45 PM CORETTA MOORE PTWS Date Time Provider Department Center 06/07/2023 3:45 PM [id number] MOORE PTWS Jen Reaves Reason for Visit: PT Eval [747] Primary Visit Diagnosis:S/P cervical spinal fusion [Z98.1] Allergies As of Date: 06/07/2023 Noted Allergy Reaction CORTISONE 11/18/2021 4 - Hives Comments: Reaction to injection Date Reviewed: 03/28/2023 Reviewed by: Jen Herrera, DIRK - Fully Assessed Prescriptions as of 06/14/2023 - methylPREDNISolone (MEDROL, SANDRA,) 4 mg Dose-Pack See package instructions - methocarbamol (ROBAXIN) 750 mg tablet Take 1 tablet by mouth every 6 hours as needed (Muscle spasms / pain). - acetaminophen (TYLENOL) 325 mg tablet 2 tablets by ORAL/FEEDING TUBE route every 6 hours as needed for pain. - benzocaine-menthol (CHLORASEPTIC) 6-10 mg lozenges Use 1 Lozenge as instructed every 2 hours as needed. - senna-docusate (SENNA-S) 8.6-50 mg per tablet Take 2 tablets by mouth two times a day as needed for constipation. - MULTIVITAMIN ORAL Take by mouth once daily. Instructional Supervisor: Therapy (PT/OT/Speech/Resp) ID: [id number] 06/07/2023 4:08 PM Author: CORETTA MOORE Signed by CORETTA MOORE PT on 06/07/2023 at 4:08 PM Document text: Program_ID:[id number] Access Code: [email or web address] URL: [email or web address]/ Date: 06-07-2023 Prepared By: Coretta Moore Program Notes Exercises - Supine Chin Tuck - 2 x daily - 7 x weekly - 4 sets - 10 reps - Seated Scapular Retraction - 2 x daily - 7 x weekly - 2 sets - 20 reps - Seated Gentle Upper Trapezius Stretch - 2 x daily - 7 x weekly - 3 sets - 1 reps -- Letter Text Letter Text Normal [facility] THERAPY NTon 06-07-2023 THERAPY NT HNO ID: [id number] Author: CORETTA MOORE PT Service: ? Author Type: Physical Therapist Type: Therapy (PT/OT/Speech/Resp) Filed: 06/07/2023 16:08 Note Text: Program_ID:[id number] Access Code: [email or web address] URL: [email or web address]/ Date: 06-07-2023 Prepared By: Coretta Moore Program Notes Exercises - Supine Chin Tuck - 2 x daily - 7 x weekly - 4 sets - 10 reps - Seated Scapular Retraction - 2 x daily - 7 x weekly - 2 sets - 20 reps - Seated Gentle Upper Trapezius Stretch - 2 x daily - 7 x weekly - 3 sets - 1 reps Normal [facility] metabolic 2000 panelon 03-11-2023 Albumin [Mass/Vol] 4.9 g/dL 3.9 - 4.9 g/dL [facility] ALP [Catalytic activity/Vol] 32 U/L Low 34 - 123 U/L [facility] ALT [Catalytic activity/Vol] 20 U/L 7 - 38 U/L [facility] Anion gap [Moles/Vol] 12 mmol/L 9 - 18 mmol/L [facility] AST [Catalytic activity/Vol] 19 U/L 13 - 35 U/L [facility] Bilirubin [Mass/Vol] 0.4 mg/dL 0.2 - 1 .3 mg/dL [facility] Calcium [Mass/Vol] 9.3 mg/dL 8.5 - 10. 2 mg/dL [facility] Chloride [Moles/Vol] 102 mmol/L 97 - 10 5 mmol/L [facility] CO2 [Moles/Vol] 24 mmol/L 22 - 30 mmol/L [facility] Creatinine [Mass/Vol] 0.69 mg/dL 0.58 - 0.96 mg/dL [facility] Estimated Glomerular Filtration Rate 111 mL/min/1.73m >=60 mL/min/1.73m [facility] Glucose [Mass/Vol] 99 mg/dL 74 - 99 mg/dL [facility] Potassium [Moles/Vol] 3.9 mmol/L 3.7 - 5.1 mmol/L [facility] Protein [Mass/Vol] 7.1 g/dL 6.3 - 8.0 g/dL [facility] Sodium [Moles/Vol] 138 mmol/L 136 - 144 mmol/L [facility] Urea nitrogen [Mass/Vol] 13 mg/dL 7 - 21 mg/dL [facility] TYPE AND SCREEN,30 DAYon ABO group Nom (Bld) A [facility] Blood group antibody screen Ql Negative [facility] HIstorical Ab Scr Status Negative [facility] Rh Nom (Bld) Positive [facility] CNCOon 12-11-2021 CNCO Letter Text Normal [facility] ANES POSTPROC EVALon 022 ANES POSTPROC EVAL HNO ID: [id number] Author: Khanh Harrington MD Service: ? 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 Anticipated Disposition: phase 2 then home. Neurological Status: aware and responsive. Pulmonary Status: breathing comfortably on room air Airway Control: returned to baseline unsupported. Cardiovascular Status: stable. Pain Management: clinically adequate Postoperative Hydration: acceptable. Intraoperative Events: no significant anesthesia events Post Operative Nausea/Vomiting Status: no significant post operative nausea or vomiting Anesthetic Observations: Recommendation: continue current plan of care. Anesthesia Observations No Documentation SIGNATURE: Khanh Harrington MD PATIENT NAME: Claritza Martin DATE: November 25, 2021 TIME: 4:11 PM CSN: [id number] [facility] ANES PRE-OPon 11-25-2021 ANES PRE-OP HNO ID: [id number] Author: Khanh Harrington MD Service: ? Author Type: Anesthesiologist Type: Anesthesia Preprocedure Evaluation Filed: 11/25/2021 2:12 PM Note Text: ANESTHESIOLOGY DAY OF SURGERY NOTE : 1980 Procedure Information Anesthesia Start Date/Time: 11/25/21 1257 Procedure: DECOMPRESSION NERVE ULNAR ELBOW (Left: Elbow) Location: [facility] OR02 / [facility] OR Surgeons: Dave Sepulveda MD Estimated body mass index is 22.86 kg/m? as calculated from the following: Height as of 11/18/21: 157.5 cm (5' 2). Weight as of 11/18/21: 56.7 kg (125 lb). Most recent hematocrit and potassium results: Hematocrit 37.6 04/04/2015 Potassium 3.8 04/04/2015 Relevant Problems ANESTHESIA (-) Sleep apnea CARDIO (+) Migraine, unspecified, without mention of intractable migraine without mention of status migrainosus (-) Angina at rest (HCC) (-) Angina of effort (HCC) NEURO-PSYCH (+) Migraine, unspecified, without mention of intractable migraine without mention of status migrainosus PULMONARY (-) Asthma (-) Sleep apnea I - PHYSICAL EVALUATION AIRWAY Patient intubated: No. Tracheostomy tube not present Mallampati: II. TM distance: >3 FB. Neck ROM: full ROM without neurological symptoms. Mouth opening: adequate. Short neck: no. Thick neck: no DENTAL Dental findings: teeth intact. II - ANESTHESIA PLAN ASA Score: 2 Anesthetic Plan: general Airway type: LMA The patient is not a current smoker. NPO Status: adequate Beta Luanne Administration of chronic beta luanne medication not planned. Monitoring plan: standard ASA. Postoperative analgesic plan: multimodal analgesia. Patient / Surrogate agrees to blood products: Yes DNR status not reviewed with patient and/or family prior to surgery. Significant changes in the patient condition since the History and Physical, not otherwise documented in primary service progress note: no. Potential Anesthesia issues that may suggest increased risk of complications or contraindication to planned procedure: none. Vitals Value Taken Time BP 128/77 11/25/21 1224 Pulse Resp 16 11/25/21 1224 Temp 36.7 ?C (98.1 ?F) 11/25/21 1224 SpO2 100 % 11/25/21 1224 Facility-Administered Medications as of 11/25/2021 Medication Dose Route Frequency - [COMPLETED] ceFAZolin iv piggyback 2 g in D5W (iso-osmotic) 100 mL (ANCEF) 2 g INTRAVENOUS Pre-Op Once - lactated ringers iv infusion 50 mL/hr INTRAVENOUS CONTINUOUS - fentaNYL 50 mcg/mL 50 mcg injection (SUBLIMAZE) 50 mcg INTRAVENOUS q 10 MIN PRN - HYDROmorphone 0.2 mg injection (DILAUDID) 0.2 mg INTRAVENOUS q 5 MIN PRN - oxyCODONE-acetaminophe n 5-325 mg 1-2 tablet (PERCOCET) 1-2 tablet ORAL PRN - ondansetron orally disintegrating 4 mg tab(s) (ZOFRAN ODT) 4 mg ORAL q 6 H PRN Or - ondansetron (PF) 4 mg injection (ZOFRAN) 4 mg INTRAVENOUS q 6 H PRN - scopolamine 1 mg over 3 days 1 Patch (TRANSDERM-SCOP) 1 Patch TRANSDERMAL PRN And - scopolamine - VERIFY patch OTHER q 8 H And - [START ON 11/26/2021] scopolamine - REMOVE PATCH OTHER ONCE Outpatient Medications as of 11/25/2021 Medication Sig - HYDROcodone-acetaminop hen (NORCO) 5-325 mg per tablet Take 1 tablet by mouth every 8 hours as needed for pain for up to 5 days. - MULTIVITAMIN ORAL Take by mouth once daily. I have interviewed and examined the patient. I have reviewed the medical record and/or the pre-anesthesia evaluation, pertinent labs, and test results. This contains updated information obtained within 48 hours of Surgery/Procedure. SIGNATURE: Khanh Harrington MD PATIENT NAME: Claritza Martin DATE: November 25, 2021 TIME: 2:11 PM CSN: [id number] [facility] OPERATIVE NOon 11-25-2021 OPERATIVE NO HNO ID: [id number] Author: Dave Sepulveda MD Service: Orthopaedic Surgery Author Type: Physician Type: Operative Report Filed: 11/26/2021 8:09 AM Note Text: OPERATIVE/PROCEDURE REPORT LOG ID: [id number] SURGERY/PROCEDURE DATE: 11/25/2021 INCISION/PROCEDURE START TIME: 1:15 PM INCISION CLOSE/PROCEDURE END TIME: 1:45 PM SURGEON(S)/PROCEDURALI ST(S) AND BUSINESS SOLUTIONS ANALYST(S): Surgeon(s) and Role: * Dave Sepulveda MD - Primary Physician Supervising Law Enforcement Analyst: Sarah Wesley PA-C SURGERY/PROCEDURE(S): Left, ulnar nerve decompression, in situ. ANESTHESIA: General with local. 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 We reviewed the risks, benefits, alternatives and potential complications involving both operative nonoperative care. Pt understood and wished to pursue surgery. On 11/25/2021, the patient was clearly identified in the preoperative area marked accordingly on the affected elbow. She received 2 g of Ancef in the IV within 1 hour of incision or tourniquet. Pt was taken the operative suite placed in supine position. Anesthesia assumed care of the head and neck for the remainder of the case. All other bony landmarks were appropriately padded in standard fashion. A well-padded upper brachium tourniquet was applied with cotton padding on the left arm. The left upper extremity was first sterilely prepped and draped in standard fashion. An appropriate timeout was conducted and all in the room were in agreement, signed consent form was on the chart. The upper extremity was exsanguinated with an Esmarch bandage and the tourniquet was applied to 250 mmHg. A small incision was made over the medial epicondyle 2 cm proximal and distal. I bluntly dissected down to the fascia overlying the cubital tunnel and work my way both proximally and distally at the level of the fascia. Meticulous dissection was used with careful nerve handling technique the Kennedy's fascia was released at the cubital tunnel and I moved my way distally, freeing up the nerve and releasing it distally at the level of its insertion underneath the fascia of the flexor carpi ulnaris, until the first motor branch was identified. There was significant constriction near the cubital tunnel as well as as it entered the FCU. Next, I then worked my way proximally and released about 5 cm proximal to the medial epicondyle, releasing some of the intermuscular septum as well. At this time I took the elbow through full range of motion with flexion and extension and there was no subluxation of the nerve. The wound was copiously irrigated and the tourniquet was taken down. Hemostasis was observed with bipolar electrocautery. The skin was closely approximated with buried, interrupted 3-0 Monocryl sutures. Final skin closure was completed with a 4-0 subcuticular weave with the tails of the ends, Steri-Strips there. Sterile 4 x 4's, and ABD, padding with a light Nohemy wrap, protective fiberglass splint and Cj bandages. There were no complications during the procedure. Patient was safely awoken and transferred to the postanesthetic care unit in stable condition. PRE-OP/PRE-PROCEDURE DIAGNOSIS: Left elbow, ulnar neuropathy POST-OP/POST-PROCEDURE DIAGNOSIS: Same as Preop ESTIMATED BLOOD LOSS: 20 mls SPECIMENS: None IMPLANTABLE DEVICES: None DRAINS: None COMPLICATIONS: None PARTICIPATION IN SURGERY/PROCEDURE: I/primary surgeon/proceduralist performed the procedure with assistance. No qualified resident/fellow was available. data entry assistant was necessary for safe patient positioning, sterile prepping and draping. arm assistance, positioning and protection, soft tissue retraction, protection of vital structures and suture management during the case. Final skin closure, splint and cj application and safe to the recovery room in stable condition. SIGNATURE: Dave Sepulveda MD PATIENT NAME: Claritza Martin DATE: November 26, 2021 TIME: 8:07 AM [facility] US Upper extremity - lefton 10-29-2021 IMPRESSION: MILD NEURITIS OF THE ULNAR NERVE AT THE CUBITAL TUNNEL. Template Worker: ALETA Transcribe Date/Time: Oct 29 2021 7:50A Dictated by : CLIFF MARIANO MD This examination was interpreted and the report reviewed and electronically signed by: CLIFF MARIANO MD on Oct 29 2021 2:22PM [facility] DIVISION OF RADIOLOGY * * *Final Report* * * DATE OF EXAM: Oct 29 2021 7:43AM [facility] 1133 - ELBOW LT / PROCEDURE REASON: Ulnar neuropathy at elbow of left upper extremity * * * * Physician Interpretation * * * * MSK_US LEFT MEDIAL ELBOW ULTRASOUND: CLINICAL INFORMATION: Left fourth and fifth digit numbness and tingling. TECHNIQUE: Garibay-scale real-time ultrasound of the medial elbow with dynamic imaging and power Doppler examination was performed. Images were saved to the permanent image archive. v1-18. COMPARISON: None. FINDINGS: COMMON FLEXOR TENDON: Tendinosis: None. Tearing: None. Power Doppler Examination: Normal. Fascia: Normal in thickness. Medial Epicondyle: No osseous hypertrophic changes. ULNAR COLLATERAL LIGAMENT: Intact. Normal stress/dynamic examination. ULNAR NERVE: Mild enlargement and fascicular prominence. No abrupt caliber change. No subluxation seen on dynamic examination. MEDIAL ELBOW JOINT SPACE: Appears grossly maintained. DIVISION OF RADIOLOGY Provider, [facility] - 10/29/2021 * * *Final Report* * * DATE OF EXAM: Oct 29 2021 7:43AM [facility] 1133 - ELBOW LT / PROCEDURE REASON: Ulnar neuropathy at elbow of left upper extremity * * * * Physician Interpretation * * * * MSK_US LEFT MEDIAL ELBOW ULTRASOUND: CLINICAL INFORMATION: Left fourth and fifth digit numbness and tingling. TECHNIQUE: Garibay-scale real-time ultrasound of the medial elbow with dynamic imaging and power Doppler examination was performed. Images were saved to the permanent image archive. v1-18. COMPARISON: None. FINDINGS: COMMON FLEXOR TENDON: Tendinosis: None. Tearing: None. Power Doppler Examination: Normal. Fascia: Normal in thickness. Medial Epicondyle: No osseous hypertrophic changes. ULNAR COLLATERAL LIGAMENT: Intact. Normal stress/dynamic examination. ULNAR NERVE: Mild enlargement and fascicular prominence. No abrupt caliber change. No subluxation seen on dynamic examination. MEDIAL ELBOW JOINT SPACE: Appears grossly maintained. IMPRESSION IMPRESSION: MILD NEURITIS OF THE ULNAR NERVE AT THE CUBITAL TUNNEL. Template Worker: ALETA Transcribe Date/Time: Oct 29 2021 7:50A Dictated by : CLIFF MARIANO MD This examination was interpreted and the report reviewed and electronically signed by: CLIFF MARIANO MD on Oct 29 2021 2:22PM EST [facility] Radiology Study observation (narrative) [facility] US Upper extremity - leftOrd ered By: [facility] Provider on 10-29-2021 [facility] Anti TPO Antibody ([id number])Ord ered By: Manager Supply Chain Planning on 03-06-2021 TPO Ab Qn [IU]/mL Normal 0-34 [facility]; [facility] Work Phone: Comment on above: PATIENT NOT FASTINGP ERFORMED BY: [employer]70 [facility] [id number] BY: [employer] [id number] C-REACTIVE PROTEIN ([id number])Or dered By: Manager Supply Chain Planning on 03-06-2021 CRP [Mass/Vol] mg/L Normal 0-10 [facility] Internal Medicine; [facility] Work Phone: Comment on above: PATIENT NOT FASTINGP ERFORMED BY: [employer]70 [facility] [id number] BY: [employer] [id number] [facility] ANTIBODY ([id number])Ordered By: Manager Supply Chain Planning on 03-06-2021 Cyclic citrullinated peptide IgA+IgG IA Qn 3 {units} Normal 0-19 [facility]; [facility] Work Phone: Comment on above: Negative <20 Weak po sitive 20 - 39 Moderate positive 40 - 59 Strong positive >59 PATIENT NOT FASTINGP ERFORMED BY: [employer]70 [facility] [id number] BY: REH [address] [id number] HgA1C , Office ([id number])Ordere d By: Victorino Garcia on 03-06-2021 HbA1c (Bld) [Mass fraction] 5.5 % Normal 4.6 - 7.1 [facility]; [facility] Work Phone: Comment on above: 5.5 RHEUMATOID FACTOR-QUAL ([id number] 0)Ordered By: Manager Supply Chain Planning on 03-06-2021 Rheumatoid factor Qn [IU]/mL Normal Comp rehensive [facility]; [facility] Work Phone: Comment on above: PATIENT NOT FASTINGP ERFORMED BY: GERMÁN [employer] Vqtegy9556 [facility] [id number] BY: REH [address] [id number] SED RATE ERYTHROCYTE ([id number]) Ordered By: Manager Supply Chain Planning on 03-06-2021 ESR (Bld) [Velocity] 2 mm/h Normal 0-32 Comp [facility]; [facility] Work Phone: Comment on above: PATIENT NOT FASTINGP ERFORMED BY: GERMÁN [employer] DuranIwybfv8333 [facility] [id number] BY: REH [address] [id number] Serum Protein Electrophoresi s (SPEP) (31438)Ordered By: Manager Supply Chain Planning on 03-06-2021 Albumin [Mass/Vol] 4.1 g/dL Normal 2.9-4.4 [facility]; [facility] Work Phone: Comment on above: PATIENT NOT FASTINGP ERFORMED BY: GERMÁN [employer] Lftjrj1972 [address] [facility] [id number] BY: [employer] [id number] Albumin/Globulin [Mass ratio] 1.6 {ratio} Normal 0.7-1.7 [facility]; [facility] Work Phone: Comment on above: PATIENT NOT FASTINGP ERFORMED BY: [facility] Hgqwqb8464 [facility] [id number] BY: [facility] [id number] Alpha 1 globulin Elph [Mass/Vol] 0.2 g/dL Normal 0.0-0.4 [facility]; [facility] Work Phone: Comment on above: PATIENT NOT FASTINGP ERFORMED BY: [facility] Mxeiug3193 [facility] [id number] BY: [address] [id number] Alpha 2 globulin Elph [Mass/Vol] 0.6 g/dL Normal 0.4-1.0 [facility]; [facility] Work Phone: Comment on above: PATIENT NOT FASTINGP ERFORMED BY: [facility] Yiqhjy9875 [facility] [id number] BY: [facility] [id number] Beta globulin Elph [Mass/Vol] 0.8 g/dL Normal 0.7-1.3 [facility]; [facility] Work Phone: Comment on above: PATIENT NOT FASTINGP ERFORMED BY: [facility] Mmljth1629 [facility] [id number] BY: [facility] [id number] Gamma globulin Elph [Mass/Vol] 0.9 g/dL Normal 0.4-1.8 [facility]; [facility] Work Phone: Comment on above: PATIENT NOT FASTINGP ERFORMED BY: CB [facility] Nfeymi9646 [facility] [id number] BY: [address] [id number] Globulin (S) [Mass/Vol] 2.5 g/dL Normal 2.2-3.9 [facility]; [facility] Work Phone: Comment on above: PATIENT NOT FASTINGP ERFORMED BY: CB [facility] Ykqdgs6157 [address] [facility] [id number] BY: [address] [id number] Laboratory comment Isaac (Report) SPRCS Normal [facility]; [facility] Work Phone: Comment on above: Protein electrophore sis scan will follow via computer, mail, orcourier delivery. PATIENT NOT FASTINGP ERFORMED BY: CB [facility] Kuenot2515 [address] [facility] [id number] BY: [facility] [id number] Laboratory report . Normal Compreh ensive Internal Medicine; [facility] Work Phone: Comment on above: PATIENT NOT FASTINGP ERFORMED BY: CB [facility] Nrhqpl4131 [facility] [id number] BY: [facility] [id number] Protein [Mass/Vol] 6.6 g/dL Normal 6.0-8.5 Compre [facility] Internal Medicine; [facility] Work Phone: Comment on above: PATIENT NOT FASTINGP ERFORMED BY: CB [facility] Akjdgt5103 [address] [facility] [id number] BY: [facility] [id number] Protein.monoclonal Elph [Mass/Vol] Not Observed Normal [facility]; [facility] Work Phone: Comment on above: PATIENT NOT FASTINGP ERFORMED BY: CB [facility] Mtdonh0514 [address] [facility] [id number] BY: [address] [id number] T3, FREE (TRIDOTHYRONINE) ([id number])Ordered By: Manager Supply Chain Planning on 03-06-2021 Free T3 [Mass/Vol] 3.3 pg/mL Normal 2.0-4.4 [facility] Internal Medicine; [facility] Work Phone: Comment on above: PATIENT NOT FASTINGP ERFORMED BY: [employer]6370 [facility] [id number] BY: REH [address] [id number] T4, FREE (THYROXINE) ([id number]) Ordered By: Manager Supply Chain Planning on 03-06-2021 Free T4 [Mass/Vol] 1.42 ng/dL Normal 0.82-1.77 [facility]; [facility] Work Phone: Comment on above: PATIENT NOT FASTINGP ERFORMED BY: [employer]6370 [facility] [id number] BY: REH [address] [id number] TSH ([id number])Ordered By: Vince hogue Internet Sales Consultant on 03-06-2021 TSH Qn 0.722 {uIU/mL} Normal 0.450-4.[address] [facility] Internal Medicine; [facility] Work Phone: Comment on above: PATIENT NOT FASTINGP ERFORMED BY: [employer]6370 [facility] [id number] BY: REH [address] [id number] CALCIFEDIOL ([id number])Ordered B y: Manager Supply Chain Planning on 02-23-2021 25-hydroxyvitamin D [Mass/Vol] 63.2 ng/mL Normal 30.0-100.0 [facility]; [facility] Work Phone: Comment on above: Vitamin D deficiency has been defined by the [place] ofMedicine and an Endocrine Society practice guideline as alevel of serum 25-OH vitamin D less than 20 ng/mL (1,2).The Endocrine Society went on to further define vitamin Dinsufficiency as a level between 21 and 29 ng/mL (2).1. IOM ([place] of Medicine). 2010. Dietary reference intakes for calcium and D. [place]: The National Academies Press.2. Andrez MF, Jose Carlos [place], Rosales BE, et al. Evaluation, treatment, and prevention of vitamin D deficiency: an Endocrine Society clinical practice guideline. JCEM. 2010; 96(7):1911-30. Feb 23 2021; PATIENT WAS FASTINGPERFORMED BY: CB [facility] Xzoxoy0357 [address] RoadDublin [place] [id number] CBC, Platelets & Auto Diff ( [id number])Ordered By: Manager Supply Chain Planning on 02-23-2021 Basophils (Bld) [#/Vol] 0.0 10*3/uL Normal 0.0-0.2 [facility]; [facility] Work Phone: Comment on above: Feb 232021; SUSANA Alfaro WAS FASTINGPERFORMED BY: CB [facility] Otgnqo4139 [address] RoadDublin [place] [id number] Basophils/100 WBC (Bld) 1 % Normal [facility]; [facility] Work Phone: Comment on above: Feb 232021; SUSANA T WAS FASTINGPERFORMED BY: CB [facility] Vqqcnr4086 [address] RoadDublin [place] [id number] Eosinophils (Bld) [#/Vol] 0.0 10*3/uL Normal 0.0-0.4 [facility]; [facility] Work Phone: Comment on above: Feb 232021; SUSANA T WAS FASTINGPERFORMED BY: [facility] Ecfahq4244 [address] RoadDublin [place] [id number] Eosinophils/100 WBC (Bld) 1 % Normal [facility]; [facility] Work Phone: Comment on above: Feb 232021; SUSANA T WAS FASTINGPERFORMED BY: [facility] Yqyrnl1725 [address] RoadDublin [place] [id number] Erythrocyte distribution width (RBC) [Ratio] 12.2 % Normal 11.7-15.4 [facility]; [facility] Work Phone: Comment on above: Feb 232021; SUSANA T WAS FASTINGPERFORMED BY: [facility] Hvnhlx5127 [address] RoadDublin [place] [id number] Hematocrit (Bld) [Volume fraction] 37.6 % Normal 34.0-46.6 [facility]; [facility] Work Phone: Comment on above: Feb 232021; SUSANA Alfaro WAS FASTINGPERFORMED BY: [facility] Kdokwt2909 [address] RoadDublin [place] [id number] Hemoglobin (Bld) [Mass/Vol] 12.8 g/dL Normal 11.1-15.9 [facility]; [facility] Work Phone: Comment on above: Feb 232021; SUSANA Alfaro WAS FASTINGPERFORMED BY: [facility] Gpkcod9196 [address]da[address] RoadDublin [place] [id number] Immature granulocytes (Bld) [#/Vol] 0.0 10*3/uL Normal 0.0-0.1 [facility]; [facility] Work Phone: Comment on above: Feb 232021; SUSANA Alafro WAS FASTINGPERFORMED BY: [facility] Dnizgi5806 [address] RoadDublin [place] [id number] Immature granulocytes/100 WBC (Bld) 0 % Normal [facility]; [facility] Work Phone: Comment on above: Feb 232021; SUSANA Alfaro WAS FASTINGPERFORMED BY: [facility] Ewvrxt2113 [address] RoadDublin [place] [id number] Lymphocytes (Bld) [#/Vol] 1.0 10*3/uL Normal 0.7-3.1 [facility]; [facility] Work Phone: Comment on above: Feb 232021; SUSANA Alfaro WAS FASTINGPERFORMED BY: [facility] Snnajz7729 [address] RoadDublin [place] [id number] Lymphocytes/100 WBC (Bld) 25 % Normal [facility]; [facility] Work Phone: Comment on above: Feb 232021; SUSANA Alfaro WAS FASTINGPERFORMED BY: [facility] Vjrdir7628 [address] RoadDublin [place] [id number] MCH (RBC) [Entitic mass] 28.8 pg Normal 26.6-33.0 [facility]; [facility] Work Phone: Comment on above: Feb 232021; SUSANA Alfaro WAS FASTINGPERFORMED BY: [facility] Hcberf1314 [address] RoadDublin [place] [id number] MCHC (RBC) [Mass/Vol] 34.0 g/dL Normal 31.5-35.7 [facility]; [facility] Work Phone: Comment on above: Feb 232021; SUSANA Alfaro WAS FASTINGPERFORMED BY: CB [facility] Pjftgo7449 [address]Dublin [place] [id number] MCV (RBC) [Entitic vol] 85 fL Normal 79-97 [facility]; [facility] Work Phone: Comment on above: Feb 232021; SUSANA Alfaro WAS FASTINGPERFORMED BY: [facility] Xdrytz3227 [address] RoadDublin [place] [id number] Monocytes (Bld) [#/Vol] 0.3 10*3/uL Normal 0.1-0.9 [facility]; [facility] Work Phone: Comment on above: Feb 232021; SUSANA Alfaro WAS FASTINGPERFORMED BY: [facility] Dwcynf9776 [address] RoadDublin [place] [id number] Monocytes/100 WBC (Bld) 7 % Normal [facility]; [facility] Work Phone: Comment on above: Feb 232021; SUSANA Alfaro WAS FASTINGPERFORMED BY: [facility] Zlktea1135 [address] RoadDublin [place] [id number] Neutrophils (Bld) [#/Vol] 2.8 10*3/uL Normal 1.4-7.0 [facility]; [facility] Work Phone: Comment on above: Feb 232021; SUSANA Alfaro WAS FASTINGPERFORMED BY: [facility] Tthway3576 [address] RoadDublin [place] [id number] Neutrophils/100 WBC (Bld) 66 % Normal [facility]; [facility] Work Phone: Comment on above: Feb 232021; SUSANA Alfaro WAS FASTINGPERFORMED BY: CB [facility] Vssypk9932 [address]Dublin [place] [id number] Platelets (Bld) [#/Vol] 216 10*3/uL Normal 150-450 [facility]; [facility] Medicine Work Phone: Comment on above: Feb 232021; SUSANA lAfaro WAS FASTINGPERFORMED BY: CB [facility] Lhkcqg2197 [address]Dublin [place] [id number] RBC (Bld) [#/Vol] 4.44 10*6/uL Normal 3.77-5.28 [facility] Internal Medicine; [facility] Work Phone: Comment on above: Feb 232021; SUSANA Alfaro WAS FASTINGPERFORMED BY: CB [facility] Pgefcn2256 [address]Dublin [place] [id number] WBC (Bld) [#/Vol] 4.1 10*3/uL Normal 3.4-10.8 [facility] Internal Medicine; [facility] Medicine Work Phone: Comment on above: Feb 232021; SUSANA Alfaro WAS FASTINGPERFORMED BY: CB [facility] Lgbrcc7622 [address] RoadDublin [place] [id number] Metabolic Panel, Comprehensi ve ([id number])Ordered By: Manager Supply Chain Planning on 02-23-2021 Albumin [Mass/Vol] 4.6 g/dL Normal 3.8-4.8 [facility] Internal Medicine; [facility] Internal Medicine Work Phone: Comment on above: Feb 23 2021; PATIENT WAS FASTINGPERFORMED BY: CB [facility] Eywvmw6626 [address] RoadDublin [place] [id number] Albumin/Globulin [Mass ratio] 2.6 {ratio} Abnormal 1.2-2.2 [facility]; [facility] Work Phone: Comment on above: Feb 23 2021; PATIENT WAS FASTINGPERFORMED BY: CB [facility] Leiadv1537 [address] RoadDublin [place] [id number] ALP [Catalytic activity/Vol] 25 U/L Abnormal 44-121 [facility]; [facility] Work Phone: Comment on above: Please note refere nce interval change Feb 23 2021; PATIENT WAS FASTINGPERFORMED BY: CB [facility] Rhqzok5080 [address]Dublin [place] [id number] ALT [Catalytic activity/Vol] 8 U/L Normal 0-32 [facility]; [facility] Work Phone: Comment on above: Feb 23 2021; PATIENT WAS FASTINGPERFORMED BY: CB [facility] Ytrxzf6246 [address] RoadDublin [place] [id number] AST [Catalytic activity/Vol] 14 U/L Normal 0-40 [facility]; [facility] Work Phone: Comment on above: Feb 23 2021; PATIENT WAS FASTINGPERFORMED BY: CB [facility] Nylgce7330 [address] RoadDublin [place] [id number] Bilirubin [Mass/Vol] 0.5 mg/dL Normal 0.0-1.2 Comp rehensive Internal Medicine; [facility] Work Phone: Comment on above: Feb 23 2021; PATIENT WAS FASTINGPERFORMED BY: CB [facility] Vnzydc7177 [address] RoadDublin [place] [id number] Calcium [Mass/Vol] 8.8 mg/dL Normal 8.7-10.2 [facility] Internal Medicine; [facility] Work Phone: Comment on above: Feb 23 2021; PATIENT WAS FASTINGPERFORMED BY: CB [facility] Vwoomx0949 [address]Dublin [place] [id number] Chloride [Moles/Vol] 108 mmol/L Abnormal 96-106 Comp re[facility]; [facility] Work Phone: Comment on above: Feb 23 2021; PATIENT WAS FASTINGPERFORMED BY: CB [facility] Ghjour4334 [address]Dublin [place] [id number] CO2 [Moles/Vol] 19 mmol/L Abnormal 20-[address] [facility] Internal Medicine; [facility] Work Phone: Comment on above: Feb 23 2021; PATIENT WAS FASTINGPERFORMED BY: CB [facility] Ajivpu7676 [facility] [id number] Creatinine [Mass/Vol] 0.66 mg/dL Normal 0.57-1.00 [facility]; [facility] Work Phone: Comment on above: Feb 23 2021; PATIENT WAS FASTINGPERFORMED BY: [facility] Adfdqc5212 [facility] [id number] GFR/1.73 sq M.predicted among blacks CKD-EPI (S/P/Bld) [Vol rate/Area] 128 mL/min/1.73 Normal [facility]; [facility] Work Phone: Comment on above: In accordance with recommendations from the NKF-ASN Task force, [facility] is in the process of updating its eGFR calculation to the 2020 CKD-EPI creatinine equation that estimates kidney function without a race variable. Feb 23 2021; PATIENT WAS FASTINGPERFORMED BY: [facility] Gcbcqg7636 [facility] [id number] GFR/1.73 sq M.predicted among non-blacks CKD-EPI (S/P/Bld) [Vol rate/Area] 111 mL/min/1.73 Normal [facility]; [facility] Work Phone: Comment on above: Feb 23 2021; PATIENT WAS FASTINGPERFORMED BY: [facility] Wbadjg3151 [facility] [id number] Globulin (S) [Mass/Vol] 1.8 g/dL Normal 1.5-4.5 [facility]; [facility] Work Phone: Comment on above: Feb 23 2021; PATIENT WAS FASTINGPERFORMED BY: [facility]6370 [facility] [id number] Glucose [Mass/Vol] 99 mg/dL Normal 65-99 [facility] Internal Medicine; [facility] Work Phone: Comment on above: Feb 23 2021; PATIENT WAS FASTINGPERFORMED BY: [facility]6370 [facility] [id number] Potassium [Moles/Vol] 4.1 mmol/L Normal 3.5-5.2 [facility]; [facility] Work Phone: Comment on above: Feb 23 2021; PATIENT WAS FASTINGPERFORMED BY: CB [facility] Bzheuq8836 [address] RoadDublin [place] [id number] Protein [Mass/Vol] 6.4 g/dL Normal 6.0-8.5 [facility] Internal Medicine; [facility] Work Phone: Comment on above: Feb 23 2021; PATIENT WAS FASTINGPERFORMED BY: CB [facility] Pzrezz9205 [address] RoadDublin [place] [id number] Sodium [Moles/Vol] 141 mmol/L Normal 134-144 [facility] Internal Medicine; [facility] Work Phone: Comment on above: Feb 23 2021; PATIENT WAS FASTINGPERFORMED BY: CB [facility] Kvuwbl9543 [address] RoadDublin [place] [id number] Urea nitrogen [Mass/Vol] 12 mg/dL Normal 6-24 [facility]; [facility] Work Phone: Comment on above: Feb 23 2021; PATIENT WAS FASTINGPERFORMED BY: CB [facility] Untpgu6668 [address] RoadDublin [place] [id number] Urea nitrogen/Creatinine [Mass ratio] 18 mg/mg Normal 9-23 [facility]; [facility] Work Phone: Comment on above: Feb 23 2021; PATIENT WAS FASTINGPERFORMED BY: CB [facility] Dblcay4205 [address]Dublin [place] [id number] Systemic Lupus Profile (8623 5)Ordered By: Manager Supply Chain Planning on 02-23-2021 Chromatin Ab Qn <0.2 Normal 0.0-0.[address] [facility] Internal Medicine; [facility] Work Phone: Comment on above: Feb 23, 2021; PATIEN T WAS FASTINGPERFORMED BY: CB [facility] Eyepug8614 [address]Dublin [place] [id number] DNA double strand Ab Qn (S) 1 [IU]/mL Normal 0-9 [facility]; [facility] Work Phone: Comment on above: Negative <5 Equivoca l 5 - 9 Positive >9 Feb 23, 2021; SUSANA Alfaro WAS FASTINGPERFORMED BY: CB [facility] Otclii2663 [address] RoadDublin [place] [id number] Rheumatoid factor Qn [IU]/mL Normal Comp rehensive Internal Medicine; [facility] Work Phone: Comment on above: Feb 23, 2021; SUSANA Alfaro WAS FASTINGPERFORMED BY: CB [facility] Zqzkdf4534 [address] RoadDublin [place] [id number] Ribonucleoprotein extractable nuclear Ab Qn (S) <0.2 Normal 0.0-0.9 [facility]; [facility] Work Phone: Comment on above: Feb 23, 2021; SUSANA Alfaro WAS FASTINGPERFORMED BY: CB [facility] Gyxnoc6691 [address]Dublin [place] [id number] Sjogrens syndrome-A extractable nuclear Ab Qn (S) <0.2 Normal 0.0-0.9 [facility]; [facility] Work Phone: Comment on above: Feb 23, 2021; SUSANA Alfaro WAS FASTINGPERFORMED BY: CB [facility] Cgdwlj3178 [address]Dublin [place] [id number] Sjogrens syndrome-B extractable nuclear Ab Qn (S) <0.2 Normal 0.0-0.9 [facility]; [facility] Work Phone: Comment on above: Feb 23, 2021; SUSANA Alfaro WAS FASTINGPERFORMED BY: CB [facility] Jhjhbq1934 [address]Dublin [place] [id number] Nagy extractable nuclear Ab Qn (S) <0.2 Normal 0.0-0.9 [facility]; [facility] Work Phone: Comment on above: Feb 23, 2021; SUSANA Alfaro WAS FASTINGPERFORMED BY: CB [facility] Mcuxgv0327 [address] RoadDublin [place] [id number] TSH (THYROID STIMULATING HOR RAMBO) (22002)Ordered By: Manager Supply Chain Planning on 01-10-2022 TSH Qn 1.120 {uIU/mL} Normal 0.450-4.500 [facility]; [facility] Work Phone: Comment on above: Feb 23 2021; PATIENT WAS FASTINGPERFORMED BY: [employer] [place] [id number] VITAMIN B12 AND FOLATES (826 07)Ordered By: Manager Supply Chain Planning on 02-23-2021 Cobalamin (Vitamin B12) [Mass/Vol] 483 pg/mL Normal 232-1245 [facility]; [facility] Work Phone: Comment on above: Feb 23 2021; PATIENT WAS FASTINGPERFORMED BY: [employer] [employer] [place] [id number] Folate [Mass/Vol] 16.6 ng/mL Normal [facility]; [facility] Work Phone: Comment on above: A serum folate gardenia ntration of less than 3.1 ng/mL isconsidered to represent clinical deficiency. Feb 23 2021; PATIENT WAS FASTINGPERFORMED BY: [employer] [place] [id number] [place] 05-17-2019 KENYA Telephone (DEREK) MARIOCLARITZA De La Garza ([id number]) 1980 F Date Time Provider Department 05/17/19 LESLIE AGUERO (MISSAEL, JAYANT) DEREK During your visit today, we recorded the following information about you: Leslie Aguero APRN.CNP 05/17/2019 12:48 PM Signed I called and spoke with Claritza today. Patient: Claritza Martin Date of : 1980 (home) [phone] (cell) ALLERGIES Allergen Reactions - Seasonal [Other] Patient last appointment: Visit date not found Patient next appointment: 05/22/2019 Reason for call: Called and spoke to Claritza today regarding her up coming visit with Dr. Miramontes. Stated she would like a second opinion regarding her left arm numbness and tingling. She has been seen at the [facility], Dr. Tapia, who recommended a disk replacement at C5-6 for these symptoms. She has agreed to have her imaging sent to our office for review. We will set up a virtual meeting with either Dr. Miramontes or me to discuss the findings and recommendations once discs received. All questions and concerns addressed. Pt also underwent EMG/NC and PT eval. In [facility]. The patients preferred pharmacy has been captured for this encounter? no Leslie Aguero APRN.LOCAL GOVERNMENT LEGISLATOR Allergies As of Date: 05/17/2019 Noted Allergy Reaction SEASONAL [Other] 08/05/2006 Date Reviewed: 10/03/2017 Reviewed by: Nasreen Mcpherson) JERZY Hart - Fully Assessed Reason for Visit: Nurse Triage Call [185] Cmt: appt Prescriptions as of 05/17/2019 Sig: NAPROXEN 500 MG TABLET Take 1 tablet by mouth twice * CYCLOBENZAPRINE 10 MG TABLET Take 1 tablet by mouth three * Problem List As Of Date 05/17/2019 Noted Resolved RESTLESS LEGS SYNDROME [G47.00] 12/26/2002 IDIOPATHIC HYPERSOMNIA [G47.10] 12/26/2002 SUPERVIS OTHER NORMAL PREG [Z34.80] 08/05/2006 08/18/2006 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 MYALGIA AND MYOSITIS NOS [AWK5781] MIGRAINE NOS W/O MENTN INTRACTABLE [G43.909] More... 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] Supervision of other normal [Z34.80] 07/16/2008 09/27/2011 Supervision of other high-risk [O09.8*07/16/2008 09/27/2011 Abdominal pain, generalized [R10.84] 07/16/2008 09/27/2011 Unspecified symptom associated with female renu*07/16/2008 09/27/2011 Lump or mass in breast [N63.0] 11/24/2012 Midline low back pain with sciatica [M54.40] 12/16/2014 Midline thoracic back pain [M54.6] 12/16/2014 Myofascial pain [M79.18] 12/16/2014 RUQ pain [R10.11] 03/14/2015 Biliary colic [K80.50] 03/14/2015 Encounter Status:Closed by LESLIE AGUERO CNP on 05/17/19 Normal [facility] AISHA CULTURE-STOOL (98314)Ord ered By: Manager Supply Chain Planning on 03-06-2019 Bacteria identified Cx Nom (Unsp spec) NCI Normal [facility] Work Phone: Comment on above: No Campylobacter spe cies isolated. PATIENT NOT FASTINGP ERFORMED BY: CB [facility] Jgxzps7070 [address] RoadDublin [place] [id number] Information: SRC:ST SRC:ST Bacteria identified Cx Nom (Unsp spec) NSS Normal [facility] Work Phone: Comment on above: No Salmonella or Laury gella recovered. PATIENT NOT FASTINGP ERFORMED BY: CB [facility] Whmaua9651 [address] RoadDublin [place] [id number] Information: SRC:ST SRC:ST Campylobacter sp identified Org specific cx Nom (Stl) Final report Normal [facility] Work Phone: Comment on above: PATIENT NOT FASTINGP ERFORMED BY: CB [facility] Rmyard4117 [address] RoadDublin [place] [id number] Information: SRC:ST SRC:ST E. coli shiga-like toxin IA Ql (Stl) Negative Normal [facility] Work Phone: Comment on above: PATIENT NOT FASTINGP ERFORMED BY: CB [facility] Xnkdka4576 [address] RoadDublin [place] [id number] Information: SRC:ST SRC:ST E. coli shiga-like toxin IA Ql (Stl) Negative Normal [facility]; [facility] Work Phone: Comment on above: PATIENT NOT FASTINGP ERFORMED BY: CB [facility] Avkavp6957 [address] RoadDublin [place] [id number] Information: SRC:ST SRC:ST Salmonella and Shigella sp identified Org specific cx Nom (Stl) Final report Normal [facility] Work Phone: Comment on above: PATIENT NOT FASTINGP ERFORMED BY: CB [facility] Ghxmfa2302 [address] RoadDublin [place] [id number] Information: SRC:ST SRC:ST CBC & PLATELETS (AUTO) (8502 7)Ordered By: Manager Supply Chain Planning on 03-06-2019 Erythrocyte distribution width (RBC) [Ratio] 14.1 % Normal 11.7-15.4 [facility] Work Phone: Comment on above: PATIENT NOT FASTINGP ERFORMED BY: CB [facility] Sxmkez1039 [address] RoadDublin [place] [id number] Hematocrit (Bld) [Volume fraction] 36.6 % Normal 34.0-46.6 [facility] Work Phone: Comment on above: PATIENT NOT FASTINGP ERFORMED BY: CB [facility] Wqwluu6134 [address] RoadDublin [place] [id number] Hemoglobin (Bld) [Mass/Vol] 12.2 g/dL Normal 11.1-15.9 [facility] Work Phone: Comment on above: PATIENT NOT FASTINGP ERFORMED BY: CB [facility] Jlpsin3351 [address] RoadDublin [place] [id number] MCH (RBC) [Entitic mass] 28.6 pg Normal 26.6-33.0 [facility] Work Phone: Comment on above: PATIENT NOT FASTINGP ERFORMED BY: CB [facility] Hfcahh8892 [address] RoadDublin [place] [id number] MCHC (RBC) [Mass/Vol] 33.3 g/dL Normal 31.5-35.7 [facility] Work Phone: Comment on above: PATIENT NOT FASTINGP ERFORMED BY: CB [facility] Fthind1802 [address] RoadDublin [place] [id number] MCV (RBC) [Entitic vol] 86 fL Normal 79-97 [facility] Work Phone: Comment on above: PATIENT NOT FASTINGP ERFORMED BY: CB [facility] Phyxns7660 [address] RoadDublin [place] [id number] Platelets (Bld) [#/Vol] 202 {x10E3/uL} Normal 150-450 [facility] Work Phone: Comment on above: PATIENT NOT FASTINGP ERFORMED BY: CB [facility] Nayfco1014 [address] RoadDublin [place] [id number] Platelets (Bld) [#/Vol] 202 10*3/uL Normal 150-450 [facility]; [facility] Work Phone: Comment on above: PATIENT NOT FASTINGP ERFORMED BY: CB [facility] Lilhni0433 [address] RoadDublin [place] [id number] RBC (Bld) [#/Vol] 4.27 {x10E6/uL} Normal 3.77-5.28 [facility] Internal Medicine Work Phone: Comment on above: PATIENT NOT FASTINGP ERFORMED BY: CB [facility] Mfxbve6012 [address] RoadDublin [place] [id number] RBC (Bld) [#/Vol] 4.27 10*6/uL Normal 3.77-5.28 [facility]; [facility] Work Phone: Comment on above: PATIENT NOT FASTINGP ERFORMED BY: CB [facility] Vmuysb7427 [address] RoadDublin [place] [id number] WBC (Bld) [#/Vol] 4.9 {x10E3/uL} Normal 3.4-10.[address] [facility] Internal Medicine Work Phone: Comment on above: PATIENT NOT FASTINGP ERFORMED BY: CB [facility] Cofqnd4428 [address] RoadDublin [place] [id number] WBC (Bld) [#/Vol] 4.9 10*3/uL Normal 3.4-10.8 [facility] Internal Medicine; [facility] Work Phone: Comment on above: PATIENT NOT FASTINGP ERFORMED BY: CB [facility] Fweeam4957 [address] RoadDublin [place] [id number] Celiac Disease Comphrehensiv e Profile (32131)Ordered By: Manager Supply Chain Planning on 03-06-2019 Endomysium IgA Ql (S) Negative Normal [facility] Work Phone: Comment on above: PATIENT NOT FASTINGP ERFORMED BY: GERMÁN [facility] Hrkehs2480 [facility] [id number] Information: [id number],[id number] Endomysium IgA Ql (S) Negative Normal [facility]; [facility] Work Phone: Comment on above: PATIENT NOT FASTINGP ERFORMED BY: GERMÁN [facility] Lshbvl8107 [facility] [id number] Information: [id number],Q90415 Gliadin peptide IgA Qn (S) 4 {units} Normal 0-19 [facility] Work Phone: Comment on above: Negative 0 - 19 Weak Positive 20 - 30 Moderate to Strong Positive >30 PATIENT NOT FASTINGP ERFORMED BY: GERMÁN [facility] Pteicb7431 [facility] [id number] Information: 455209,[id number] Gliadin peptide IgG Qn (S) 2 {units} Normal 0-19 [facility] Work Phone: Comment on above: Negative 0 - 19 Weak Positive 20 - 30 Moderate to Strong Positive >30 PATIENT NOT FASTINGP ERFORMED BY: [facility] Fzhgjh7622 [facility] [id number] Information: [id number] IgA [Mass/Vol] 109 mg/dL Normal 87-352 Comprehens k[facility] Internal Medicine Work Phone: Comment on above: PATIENT NOT FASTINGP ERFORMED BY: [facility] Lmjouy8461 [facility] [id number] Information: [id number],Q86362 tTG IgA Qn (S) <2 Normal 0-3 Comprehens [facility] Internal Medicine Work Phone: Comment on above: Negative 0 - 3 Weak Positive 4 - 10 Positive >10 . Tissue Transglutaminase (tTG) has been identified as the endomysial antigen. Studies have demonstr- ated that endomysial IgA antibodies have over 99% specificity for gluten sensitive enteropathy. PATIENT NOT FASTINGP ERFORMED BY: GERMÁN Aragon6370 [facility] [id number] Information: [id number],C27430 tTG IgG Qn (S) <2 Normal 0-5 Comprehens [facility] Internal Medicine Work Phone: Comment on above: Negative 0 - 5 Weak Positive 6 - 9 Positive >9 PATIENT NOT FASTINGP ERFORMED BY: GERMÁN [facility] Ctsims7204 [facility] [id number] Information: [id number],S32610 LEUKOCYTE COUNT, FECAL (8905 5)Ordered By: Manager Supply Chain Planning on 03-06-2019 WBC LM Ql (Stl) NWBC Normal Comprehen sive Internal Medicine Work Phone: Comment on above: No white blood cells seen. PATIENT NOT FASTINGP ERFORMED BY: GERMÁN [facility] Crltdl8949 [facility] [id number] WBC LM Ql (Stl) Final report Normal Compreh ensive Internal Medicine Work Phone: Comment on above: PATIENT NOT FASTINGP ERFORMED BY: GERMÁN LabCoedward Dbxxfb1188 [facility] [id number] Metabolic Panel, Comprehensi ve (19571)Ordered By: Manager Supply Chain Planning on 03-06-2019 Albumin [Mass/Vol] 4.4 g/dL Normal 3.8-4.8 [facility] Work Phone: Comment on above: Please note refere nce interval change PATIENT NOT FASTINGP ERFORMED BY: GERMÁN [facility] Kcsima1994 [facility] [id number] Albumin/Globulin [Mass ratio] 1.9 {ratio} Normal 1.2-2.2 [facility] Work Phone: Comment on above: PATIENT NOT FASTINGP ERFORMED BY: GREMÁN [facility] Ebqpja1031 [facility] [id number] ALP [Catalytic activity/Vol] 25 [iU]/L Abnormal 39-117 [facility] Work Phone: Comment on above: PATIENT NOT FASTINGP ERFORMED BY: GERMÁN [facility] Odmtdg5530 [address] RoadDublin [place] [id number] ALP [Catalytic activity/Vol] 25 U/L Abnormal 39-117 [facility]; [facility] Work Phone: Comment on above: PATIENT NOT FASTINGP ERFORMED BY: CB [facility] Ocbumk9130 [address] RoadDublin [place] [id number] ALT [Catalytic activity/Vol] 8 [iU]/L Normal 0-32 [facility] Work Phone: Comment on above: PATIENT NOT FASTINGP ERFORMED BY: GERMÁN [facility] Onyxvi1450 [address] RoadDublin [place] [id number] ALT [Catalytic activity/Vol] 8 U/L Normal 0-32 [facility]; [facility] Work Phone: Comment on above: PATIENT NOT FASTINGP ERFORMED BY: GERMÁN [facility] Gnlpxv3690 [address] RoadDublin [place] [id number] AST [Catalytic activity/Vol] 9 [iU]/L Normal 0-40 [facility] Work Phone: Comment on above: PATIENT NOT FASTINGP ERFORMED BY: GERMÁN LabCoedward DuranVnhiwl0373 [address] RoadDublin [place] [id number] AST [Catalytic activity/Vol] 9 U/L Normal 0-40 [facility]; [facility] Work Phone: Comment on above: PATIENT NOT FASTINGP ERFORMED BY: CB [facility] Iqhetl5724 [address] RoadDublin [place] [id number] Bilirubin [Mass/Vol] 0.5 mg/dL Normal 0.0-1.2 Comp [facility] Internal Medicine Work Phone: Comment on above: PATIENT NOT FASTINGP ERFORMED BY: GERMÁN [facility] Wwjdah9828 [address] RoadDublin [place] [id number] Calcium [Mass/Vol] 9.1 mg/dL Normal 8.7-10.2 [facility] Internal Medicine Work Phone: Comment on above: PATIENT NOT FASTINGP ERFORMED BY: CB [facility] Gfwaqf2846 [address] RoadDublin [place] [id number] Chloride [Moles/Vol] 103 mmol/L Normal 96-106 Comp rehensive Internal Medicine Work Phone: Comment on above: PATIENT NOT FASTINGP ERFORMED BY: CB [facility] Uujsiq0582 [address] RoadDublin [place] [id number] CO2 [Moles/Vol] 24 mmol/L Normal 20-29 Comprehen [facility] Internal Medicine Work Phone: Comment on above: PATIENT NOT FASTINGP ERFORMED BY: CB [facility] Bqufsk5577 [address] RoadDublin [place] [id number] Creatinine [Mass/Vol] 0.58 mg/dL Normal 0.57-1.00 [facility] Work Phone: Comment on above: PATIENT NOT FASTINGP ERFORMED BY: CB [facility] Faqlbo4690 [address]Dublin [place] [id number] GFR/1.73 sq M predicted among blacks CKD-EPI (S/P/Bld) [Vol rate/Area] 135 mL/min/1.73 Normal [facility] Work Phone: Comment on above: PATIENT NOT FASTINGP ERFORMED BY: CB [facility] Qaetwa1875 [address] RoadDublin [place] [id number] GFR/1.73 sq M predicted among non-blacks CKD-EPI (S/P/Bld) [Vol rate/Area] 117 mL/min/1.73 Normal [facility] Work Phone: Comment on above: PATIENT NOT FASTINGP ERFORMED BY: CB [facility] Usohjn9230 [address]Dublin [place] [id number] Globulin (S) [Mass/Vol] 2.3 g/dL Normal 1.5-4.5 [facility] Work Phone: Comment on above: PATIENT NOT FASTINGP ERFORMED BY: CB [facility] Nhnxlq8999 [address]Dublin [place] [id number] Glucose [Mass/Vol] 95 mg/dL Normal 65-99 [facility] Internal Medicine Work Phone: Comment on above: PATIENT NOT FASTINGP ERFORMED BY: GERMÁN [facility] Irfubh1599 [address] RoadDublin [place] [id number] Potassium [Moles/Vol] 4.6 mmol/L Normal 3.5-5.2 [facility] Work Phone: Comment on above: PATIENT NOT FASTINGP ERFORMED BY: CB [facility] Kvqsfl8673 [address] RoadDublin [place] [id number] Protein [Mass/Vol] 6.7 g/dL Normal 6.0-8.5 [facility] Internal Medicine Work Phone: Comment on above: PATIENT NOT FASTINGP ERFORMED BY: GERMÁN [facility] Lqwexy1667 [address] RoadDublin [place] [id number] Sodium [Moles/Vol] 141 mmol/L Normal 134-144 [facility] Internal Medicine Work Phone: Comment on above: PATIENT NOT FASTINGP ERFORMED BY: GERMÁN [facility] Ubnbsi3681 [address] RoadDublin [place] [id number] Urea nitrogen [Mass/Vol] 9 mg/dL Normal 6-20 [facility] Work Phone: Comment on above: PATIENT NOT FASTINGP ERFORMED BY: GERMÁN [facility] Mrmegv9596 [address] RoadDublin [place] [id number] Urea nitrogen/Creatinine [Mass ratio] 16 mg/mg Normal 9-23 [facility] Work Phone: Comment on above: PATIENT NOT FASTINGP ERFORMED BY: GERMÁN [facility] Mtebac5063 [address]Dublin [place] [id number] OCCULT BLOOD FECES SCREEN (9 8510)Ordered By: Manager Supply Chain Planning on 03-06-2019 Lower GI hemoglobin IA Ql (Stl) Negative Normal [facility] Work Phone: Comment on above: PATIENT NOT FASTINGP ERFORMED BY: CB [facility] Ngtiup6025 [address] RoadDublin [place] [id number] Lower GI hemoglobin IA Ql (Stl) Negative Normal [facility]; [facility] Work Phone: Comment on above: PATIENT NOT FASTINGP ERFORMED BY: [employer] [id number] [facility] [id number] OVA & PARASITE DIR SMEAR ([id number])Ordered By: Manager Supply Chain Planning on 03-06-2019 Ova and parasites identified Concentration Nom (Stl) NOCP1 Normal [facility] Work Phone: Comment on above: No ova, cysts, or pa rasites seen. .One negative specimen does not rule out the possibility of aparasitic infection. PATIENT NOT FASTINGP ERFORMED BY: [facility] [id number] [facility] [id number] Ova and parasites identified LM Nom (Unsp spec) Final report Normal [facility] Work Phone: Comment on above: These results were o btained using wet preparation(s) and trichromestained smear. This test does not include testing for Cryptosporidiumparvum, Cyclospora, or Microsporidia. PATIENT NOT FASTINGP ERFORMED BY: [employer] [id number] [facility] [id number] TSH (THYROID STIMULATING HOR RAMBO) ([id number])Ordered By: Manager Supply Chain Planning on 03-06-2019 TSH Qn 1.020 {uIU/mL} Normal 0.450-4.500 Lula [facility] Work Phone: Comment on above: PATIENT NOT FASTINGP ERFORMED BY: [employer] [id number] [facility] [id number] Vital Signs Date Time Vital Sign Value Performing Clinician Facility 07-11-2024 11:53-0400 Body height 157.48 cm Giuseppe RANDALL Work Phone: [facility] 07-11-2024 11:53-0400 Body mass index (BMI) [Ratio] 25 kg/m2 Giuseppe RANDALL Work Phone: [facility] 07-11-2024 11:53-0400 Body temperature 97.8 [degF] Giuseppe RANDALL Work Phone: [facility] 07-11-2024 11:53-0400 Body weight 62.14 kg Giuseppe Sav [employer] Work Phone: [facility] 07-11-2024 11:53-0400 Diastolic blood pressure 82 mm[Hg] Giuseppe Sav [employer] Work Phone: [facility] 07-11-2024 11:53-0400 Heart rate 86 /min Giuseppe Sav [employer] Work Phone: [facility] 07-11-2024 11:53-0400 Respiratory rate 16 /min Giuseppe Sav [employer] Work Phone: [facility] 07-11-2024 11:53-0400 SaO2% (BldA) [Mass fraction] 98 % Giuseppe Sav [employer] Work Phone: [facility] 07-11-2024 11:53-0400 Systolic blood pressure 112 mm[Hg] Giuseppe Sav [employer] Work Phone: [facility] 06-22-2024 09:28-0400 Body mass index (BMI) [Ratio] 24.1 kg/m2 Giuseppe Sav [employer] Work Phone: [facility] 06-22-2024 09:28-0400 Body weight 60.78 kg Giuseppe Sav [employer] Work Phone: [facility] 06-01-2024 09:29-0400 Body mass index (BMI) [Ratio] 24.3 kg/m2 Giuseppe Sav [employer] Work Phone: [facility] 06-01-2024 09:29-0400 Body temperature 98.6 [degF] Giuseppe Sav [employer] Work Phone: [facility] 06-01-2024 09:29-0400 Body weight 61.23 kg Giuseppe Sav [employer] Work Phone: [facility] 06-01-2024 09:29-0400 Diastolic blood pressure 72 mm[Hg] Giuseppe Sav [employer] Work Phone: [facility] 06-01-2024 09:29-0400 Heart rate 81 /min Giuseppe Sav [employer] Work Phone: [facility] 06-01-2024 09:29-0400 Respiratory rate 16 /min Giuseppe Sav [employer] Work Phone: [facility] 06-01-2024 09:29-0400 SaO2% (BldA) [Mass fraction] 100 % Giuseppe Sav [employer] Work Phone: [facility] 06-01-2024 09:29-0400 Systolic blood pressure 128 mm[Hg] Giuseppe Sav [employer] Work Phone: [facility] 05-18-2024 09:29-0400 Body mass index (BMI) [Ratio] 24.7 kg/m2 Giuseppe Sav [employer] Work Phone: [facility] 05-18-2024 09:29-0400 Body temperature 96.7 [degF] Giuseppe Sav [employer] Work Phone: [facility] 05-18-2024 09:29-0400 Body weight 61.29 kg Giuseppe Sav [employer] Work Phone: [facility] 05-18-2024 09:29-0400 Diastolic blood pressure 82 mm[Hg] Giuseppe Sav [employer] Work Phone: [facility] 05-18-2024 09:29-0400 Heart rate 79 /min Giuseppe Sav [employer] Work Phone: [facility] 05-18-2024 09:29-0400 Respiratory rate 16 /min Giuseppe Sav [employer] Work Phone: [facility] 05-18-2024 09:29-0400 SaO2% (BldA) [Mass fraction] 98 % Giuseppe Sav [employer] Work Phone: [facility] 05-18-2024 09:29-0400 Systolic blood pressure 138 mm[Hg] Giuseppe Sav [employer] Work Phone: [facility] 04-05-2024 15:27-0500 Body height 158.75 cm Giuseppe Sav [employer] Work Phone: [facility] 04-05-2024 15:27-0500 Body mass index (BMI) [Ratio] 24.5 kg/m2 Giuseppe Sav [employer] Work Phone: [facility] 04-05-2024 15:27-0500 Body temperature 98.4 [degF] Giuseppe Sav [employer] Work Phone: [facility] 04-05-2024 15:27-0500 Body weight 61.68 kg Giuseppe Sav [employer] Work Phone: [facility] 04-05-2024 15:27-0500 Diastolic blood pressure 82 mm[Hg] Giuseppe Milleram [employer] Work Phone: [facility] 04-05-2024 15:27-0500 Heart rate 84 /min Giuseppe Milleram [employer] Work Phone: [facility] 04-05-2024 15:27-0500 Respiratory rate 15 /min Giuseppe Sav [employer] Work Phone: [facility] 04-05-2024 15:27-0500 SaO2% (BldA) [Mass fraction] 100 % Giuseppe Sav [employer] Work Phone: [facility] 04-05-2024 15:27-0500 Systolic blood pressure 120 mm[Hg] Giuseppe Milleram [employer] Work Phone: [facility] 08-04-2023 08:11-0400 Body mass index (BMI) [Ratio] 24.76 kg/m2 Coretta Parkinson APRN.LOCAL GOVERNMENT LEGISLATOR Work Phone: [facility] 08-04-2023 08:11-0400 Body temperature 98.71 [degF] Coretta Parkinson APRN.LOCAL GOVERNMENT LEGISLATOR Work Phone: [facility] 08-04-2023 08:11-0400 Body weight 61.4 kg Coretta Parkinson PHLEBOTOMY PROGRAM COORDINATOR.LOCAL GOVERNMENT LEGISLATOR Work Phone: [facility] 08-04-2023 08:11-0400 Diastolic blood pressure 99 mm[Hg] Coretta Parkinson PHLEBOTOMY PROGRAM COORDINATOR.LOCAL GOVERNMENT LEGISLATOR Work Phone: [facility] 08-04-2023 08:11-0400 Heart rate 71 /min Coretta Parkinson PHLEBOTOMY PROGRAM COORDINATOR.LOCAL GOVERNMENT LEGISLATOR Work Phone: [facility] 08-04-2023 08:11-0400 Respiratory rate 18 /min Coretta Parkinson PHLEBOTOMY PROGRAM COORDINATOR.LOCAL GOVERNMENT LEGISLATOR Work Phone: [facility] 08-04-2023 08:11-0400 SaO2% (BldA) [Mass fraction] 100 % Coretta Parkinson PHLEBOTOMY PROGRAM COORDINATOR.LOCAL GOVERNMENT LEGISLATOR Work Phone: [facility] 08-04-2023 08:11-0400 Systolic blood pressure 149 mm[Hg] Coretta Parkinson PHLEBOTOMY PROGRAM COORDINATOR.LOCAL GOVERNMENT LEGISLATOR Work Phone: [facility] 03-11-2023 11:23-0500 Body height 157.5 cm Pacc 1 Work Phone: [facility] 03-11-2023 11:23-0500 Body temperature 99.3 [degF] Pacc 1 Work Phone: [facility] 03-11-2023 11:23-0500 Body weight 57.61 kg Pacc 1 Work Phone: [facility] 03-11-2023 11:23-0500 Diastolic blood pressure 82 mm[Hg] Pacc 1 Work Phone: [facility] 03-11-2023 11:23-0500 Heart rate 84 /min Pacc 1 Work Phone: [facility] 03-11-2023 11:23-0500 Respiratory rate 14 /min Pacc 1 Work Phone: [facility] 03-11-2023 11:23-0500 SaO2% (BldA) [Mass fraction] 100 % Pacc 1 Work Phone: [facility] 03-11-2023 11:23-0500 Systolic blood pressure 130 mm[Hg] Pac 1 Work Phone: [facility] 01-13-2023 13:05-0500 Body height 157.5 cm Mariam Weaver MD Work Phone: [facility] 01-13-2023 13:05-0500 Body weight 56.25 kg Mariam Weaver MD Work Phone: [facility] 01-13-2023 13:05-0500 Respiratory rate 16 /min Mariam Weaver MD Work Phone: [facility] 12-17-2022 13:0400 Body height 157.48 cm RYDER Chilel LPN [facility]; [facility] Work Phone: 12-17-2022 13:26-0400 Body mass index (BMI) [Ratio] 22.86 kg/m2 RYDER Chilel LPN [facility]; [facility] Work Phone: 12-17-2022 13:26-0400 Body surface area Derived from formula 1.57 m2 RYDER Chilel LPN [facility]; [facility] Work Phone: 12-17-2022 13:-040 Body temperature 97.9 [degF] RYDER Chilel LPN [facility]; [facility] Work Phone: Comment on above: Method: Temporal 12-17-2022 13:040 Body weight 56.7 kg RYDER Chilel LPN [facility]; [facility] Work Phone: 12-17-2022 [id number] Diastolic blood pressure 68 mm[Hg] RYDER Chilel LPN [facility]; [facility] Work Phone: Comment on above: Patient Position: Sitting; Cuff Location : Left Arm; Cuff Size: Standard 12-17-2022 13:26-0400 Heart rate 78 /min RYDER Chilel LPN [facility]; [facility] Work Phone: Comment on above: Pattern: Regular 12-17-2022 13:26-0400 Respiratory rate 18 /min RYDER Chilel LPN [facility]; [facility] Work Phone: Comment on above: Pattern: Unlabored 12-17-2022 13:26-0400 SaO2% (BldA) [Mass fraction] 98 % RYDER Chilel MELY [facility]; [facility] Work Phone: Comment on above: Room air 12-17-2022 13:26-0400 Systolic blood pressure 100 mm[Hg] RYDER Chilel MELY [facility]; [facility] Work Phone: Comment on above: Patient Position: Sitting; Cuff Location : Left Arm; Cuff Size: Standard 11-18-2021 19:40-0400 Body height 157.5 cm Pac 3 Work Phone: [facility] 11-18-2021 19:40-0400 Body weight 56.7 kg Pac 3 Work Phone: [facility] 05-29-2021 10:42-0400 Body height 157.48 cm [employer] Darlene Galan [employer] Work Phone: [facility] Work Phone: 05-29-2021 10:42-0400 Body height 157.48 cm [employer] Darlene Galan [employer] Work Phone: [facility] Work Phone: 03-20-2021 08:36-0500 Body height 157.48 cm Victorino Garcia LPN [facility]; [facility] Work Phone: Comment on above: not able to check vital signs 03-20-2021 08:36-0500 Body mass index (BMI) [Ratio] 22.5 kg/m2 Victorino Garcia LPN [facility]; [facility] Work Phone: Comment on above: not able to check vital signs 03-20-2021 08:36-0500 Body surface area Derived from formula 1.55 m2 Victorino Garcia LPN [facility]; [facility] Work Phone: Comment on above: not able to check vital signs 03-20-2021 08:36-0500 Body weight 55.79 kg Victorino Garcia LPN [facility]; [facility] Work Phone: Comment on above: not able to check vital signs 03-06-2021 07:39-0500 Body height 157.48 cm Victorino Garcia LPN [facility]; [facility] Work Phone: 03-06-2021 07:39-0500 Body mass index (BMI) [Ratio] 22.5 kg/m2 Victorino Garcia LPN [facility]; [facility] Work Phone: 03-06-2021 07:39-0500 Body surface area Derived from formula 1.55 m2 Victorino Garcia LPN [facility]; [facility] Work Phone: 03-06-2021 07:39-0500 Body temperature 97.6 [degF] Victorino Garcia LPN [facility]; [facility] Work Phone: Comment on above: Method: Infrared 03-06-2021 07:39-0500 Body weight 55.79 kg Victorino Garcia LPN [facility]; [facility] Work Phone: 03-06-2021 07:39-0500 Diastolic blood pressure 70 mm[Hg] Victorino Garcia LPN [facility]; [facility] Work Phone: Comment on above: Patient Position: Sitting; Cuff Location : Left Arm; Cuff Size: Standard 03-06-2021 07:39-0500 Heart rate 83 /min Victorino Garcia LPN [facility]; [facility] Work Phone: Comment on above: Pattern: Regular 03-06-2021 07:39-0500 Respiratory rate 16 /min Victorino Garcia LPN [facility]; [facility] Work Phone: Comment on above: Pattern: Unlabored 03-06-2021 07:39-0500 SaO2% (BldA) [Mass fraction] 100 % Victorino Garcia LPN [facility]; [facility] Work Phone: Comment on above: Room air 03-06-2021 07:39-0500 Systolic blood pressure 100 mm[Hg] Victorino Garcia LPN [facility]; [facility] Work Phone: Comment on above: Patient Position: Sitting; Cuff Location : Left Arm; Cuff Size: Standard 02-20-2021 08:05-0500 Body height 157.48 cm Victorino Garcia LPN [facility]; [facility] Work Phone: 02-20-2021 08:05-0500 Body mass index (BMI) [Ratio] 21.77 kg/m2 Victorino Garcia LPN [facility]; [facility] Work Phone: 02-20-2021 08:05-0500 Body surface area Derived from formula 1.53 m2 Victorino Garcia LPN [facility]; [facility] Work Phone: 02-20-2021 08:05-0500 Body weight 53.98 kg Victorino Garcia LPN [facility]; [facility] Work Phone: 05-02-2019 09:39-0400 BMI (Body Mass Index) 22.51 kg/m2 Victorino Garcia LPN [facility] Work Phone: 05-02-2019 09:39-0400 Body Temperature 97.2 [degF] Victorino Garcia LPN [facility] Work Phone: Comment on above: Method: Temporal 05-02-2019 09:39-0400 Body weight 55.82 kg Victorino Garcia LPN [facility] Work Phone: 05-02-2019 09:39-0400 BP Diastolic 78 mm[Hg] Victorino Garcia LPN [facility] Work Phone: Comment on above: Patient Position: Sitting; Cuff Location : Left Arm; Cuff Size: Standard 05-02-2019 09:39-0400 BP Systolic 122 mm[Hg] Victorino Garcia LPN [facility] Work Phone: Comment on above: Patient Position: Sitting; Cuff Location : Left Arm; Cuff Size: Standard 05-02-2019 09:39-0400 BSA (Body Surface Area) 1.56 m2 Victorino Garcia LPN [facility] Work Phone: 05-02-2019 09:39-0400 Height 157.48 cm Victorino Garcia LPN [facility] Work Phone: 05-02-2019 09:39-0400 Pulse (Heart Rate) 82 /min Victorino Garcia LPN [facility] Work Phone: Comment on above: Pattern: Regular 05-02-2019 09:39-0400 Pulse Oximetry 98 % Darlene Galan [facility] Work Phone: Comment on above: Room air 05-02-2019 09:39-0400 Respiratory Rate 16 /min Victorino Garcia LPN [facility] Work Phone: Comment on above: Pattern: Unlabored 05-02-2019 09:39-0400 SaO2% (BldA) [Mass fraction] 98 % Victorino Garcia LPN [facility]; [facility] Work Phone: Comment on above: Room air 04-10-2019 08:00-0500 BMI (Body Mass Index) 22.14 kg/m2 Victorino Garcia LPN [facility] Work Phone: 04-10-2019 08:00-0500 Body Temperature 97.8 [degF] Victorino Garcia LPN [facility] Work Phone: Comment on above: Method: Temporal 04-10-2019 08:00-0500 Body weight 54.91 kg Victorino Garcia LPN [facility] Work Phone: 04-10-2019 08:00-0500 BP Diastolic 62 mm[Hg] Victorino Garcia LPN [facility] Work Phone: Comment on above: Patient Position: Sitting; Cuff Location : Left Arm; Cuff Size: Standard 04-10-2019 08:00-0500 BP Systolic 116 mm[Hg] Victorino Garcia LPN [facility] Work Phone: Comment on above: Patient Position: Sitting; Cuff Location : Left Arm; Cuff Size: Standard 04-10-2019 08:00-0500 BSA (Body Surface Area) 1.54 m2 Victorino Garcia LPN [facility] Work Phone: 04-10-2019 08:00-0500 Height 157.48 cm Victorino Garcia LPN [facility] Work Phone: 04-10-2019 08:00-0500 Pulse (Heart Rate) 68 /min Victorino Garcia LPN [facility] Work Phone: Comment on above: Pattern: Regular 04-10-2019 08:00-0500 Pulse Oximetry 98 % Darlene Galan [facility] Work Phone: Comment on above: Room air 04-10-2019 08:00-0500 Respiratory Rate 16 /min Victorino Garcia LPN [facility] Work Phone: Comment on above: Pattern: Unlabored 04-10-2019 08:00-0500 SaO2% (BldA) [Mass fraction] 98 % Victorino Garcia LPN [facility]; [facility] Work Phone: Comment on above: Room air 03-20-2019 08:00-0500 BMI (Body Mass Index) 21.59 kg/m2 Victorino Garcia LPN [facility] Work Phone: 03-20-2019 08:00-0500 Body Temperature 98.1 [degF] Victorino Garcia LPN [facility] Work Phone: Comment on above: Method: Temporal 03-20-2019 08:00-0500 Body weight 53.54 kg Victorino Garcia LPN [facility] Work Phone: 03-20-2019 08:00-0500 BP Diastolic 52 mm[Hg] Victorino Garcia LPN [facility] Work Phone: Comment on above: Patient Position: Sitting; Cuff Location : Left Arm; Cuff Size: Standard 03-20-2019 08:00-0500 BP Systolic 102 mm[Hg] Victorino Garcia LPN [facility] Work Phone: Comment on above: Patient Position: Sitting; Cuff Location : Left Arm; Cuff Size: Standard 03-20-2019 08:00-0500 BSA (Body Surface Area) 1.53 m2 Victorino Garcia LPN [facility] Work Phone: 03-20-2019 08:00-0500 Height 157.48 cm Victorino Garcia LPN [facility] Work Phone: 03-20-2019 08:00-0500 Pulse (Heart Rate) 111 /min Victorino Garcia LPN [facility] Work Phone: Comment on above: Pattern: Regular 03-20-2019 08:00-0500 Pulse Oximetry 98 % Darlene Galan [facility] Work Phone: Comment on above: Room air 03-20-2019 08:00-0500 Respiratory Rate 16 /min Victorino Garcia LPN [facility] Work Phone: Comment on above: Pattern: Unlabored 03-20-2019 08:00-0500 SaO2% (BldA) [Mass fraction] 98 % Victorino Garcia LPN [facility]; [facility] Work Phone: Comment on above: Room air 03-06-2019 09:52-0500 BMI (Body Mass Index) 22.69 kg/m2 Victorino Garcia LPN [facility] Work Phone: 03-06-2019 09:52-0500 Body Temperature 98.2 [degF] Victorino Garcia LPN [facility] Work Phone: Comment on above: Method: Temporal 03-06-2019 09:52-0500 Body weight 56.27 kg Victorino Garcia LPN [facility] Work Phone: 03-06-2019 09:52-0500 BP Diastolic 90 mm[Hg] Victorino Garcia LPN [facility] Work Phone: Comment on above: Patient Position: Sitting; Cuff Location : Left Arm; Cuff Size: Standard 03-06-2019 09:52-0500 BP Systolic 122 mm[Hg] Victorino Garcia LPN [facility] Work Phone: Comment on above: Patient Position: Sitting; Cuff Location : Left Arm; Cuff Size: Standard 03-06-2019 09:52-0500 BSA (Body Surface Area) 1.56 m2 Victorino Garcia LPN [facility] Work Phone: 03-06-2019 09:52-0500 Height 157.48 cm Victorino Garcia LPN [facility] Work Phone: 03-06-2019 09:52-0500 Pulse (Heart Rate) 93 /min Victorino Garcia LPN [facility] Work Phone: Comment on above: Pattern: Regular 03-06-2019 09:52-0500 Pulse Oximetry 99 % Darlene Galan [facility] Work Phone: Comment on above: Room air 03-06-2019 09:52-0500 Respiratory Rate 16 /min Victorino Garcia LPN [facility] Work Phone: Comment on above: Pattern: Unlabored 03-06-2019 09:52-0500 SaO2% (BldA) [Mass fraction] 99 % Victorino Garcia LPN [facility]; [facility] Work Phone: Comment on above: Room air Encounters Encounter Date Encounter Type Care Provider Facility Start: 07-31-2024 Encounter for other preprocedural examination Dg Díaz [facility] Start: 07-31-20[facility] Start: 07-31[facility] Start: 07-27-2024 End: 07-27-[address] Dg Díaz MD -[facility] Work Phone: Start: 07-27-2024 End: 07-27-2024 ambulatory Giuseppe RANDALL Work Phone: [facility] Work Phone: Start: 07-19-2024 End: 07-19-2024 ambulatory Mini Dailey Facility:[facility] Start: 07-19-2024 End: 07-19-2024 Non-patient / Non-visit Dr. Mini Dailey MD -[facility] Work Phone: Start: 07-11-2024 Encounter for other preprocedural examination Jeff Parra [facility] Start: 07-11-2024 End: 07-11-2024 Patient encounter procedure Jeff ALEGRIA -[facility] Work Phone: Start: 07-11-2024 End: 07-11-2024 Patient encounter status Jeff ALEGRIA [facility] Start: 07-11-2024 End: 07-11-2024 ambulatory Giuseppe RANDALL Work Phone: [facility] Work Phone: Start: 06-22-2024 End: 06-22-[address] Dg Díaz MD -[facility] Work Phone: Start: 06-22-2024 End: 06-22-2024 ambulatory Giuseppe Ang Facility:[facility] Start: 06-01-2024 End: 06-01-2024 ambulatory Giuseppe Ang Facility:[facility] Start: 06-01-2024 End: 06-01-[address] Narayan Connelly MD -[facility] Work Phone: Start: 05-25-2024 End: 05-25-2024 ambulatory GIUSEPPE ANG Facility:[facility] Start: 05-25-2024 End: 05-25-2024 Subsequent hospital visit by physician [facility] (I-Stat/1.5t) Work Phone: Radiology Comment on above: Demyelinating diseas e of central nervous system (HCC) [G37.9] Start: 05-18-2024 Encounter for genera l adult medical examination without abnormal findings [facility] Start: 05-18-2024 Patient encounter status Giuseppe Sav [employer] Work Phone: [facility] Start: 05-18-2024 End: 05-18-[address] Jesusita Jang MD -[facility] Work Phone: Start: 05-18-2024 End: 05-18-[address] Jesusita Jang MD [facility] Start: 05-18-2024 End: 05-18-2024 [facility] Start: 05-11-2024 End: 05-11-2024 ambulatory Angel Orellana MD Work Phone: Neurology Comment on above: Abnormal finding on MRI of brain (Primary Dx); Demyelinating disease of central nervous system (HCC); Generalized weakness; Migratory pain; Nonintractable headache, unspecified chronicity pattern, unspecified headache type Start: 05-11-2024 End: 05-11-2024 Telemedicine consultation with patient Angel Orellana MD Work Phone: Neurology Start: 05-10-2024 End: 05-11-2024 Telephone encounter Angel Orellana MD Work Phone: [facility] Start: 05-07-2024 End: 05-07-2024 ambulatory Giuseppe Sav [employer] Work Phone: [facility] Work Phone: Start: 05-07-2024 End: 05-07-[address] Narayan Connelly MD -[facility] Work Phone: Start: 05-07-2024 End: 05-07-2024 ambulatory Narayan Godwin Facility:[facility] Start: 04-05-2024 End: 04-05-[address] Narayan Connelly MD -[facility] Work Phone: Start: 04-05-2024 End: 04-05-2024 ambulatory Narayan Connelly Facility:[facility] Start: 09-19-2023 ambulatory Parker Leiva PHLEBOTOMY PROGRAM COORDINATOR.LOCAL GOVERNMENT LEGISLATOR Work Phone: [facility] Comment on above: Still pain Start: 08-04-2023 End: 08-04-2023 ambulatory Mariam Weaver MD Work Phone: [facility] Comment on above: Recurring pain Start: 08-04-2023 Telephone encounter Laney cooper PA-C Work Phone: Orthopedics Start: 08-04-2023 End: 08-04-2023 Patient encounter procedure Laney Carroll PA-C Work Phone: Orthopedics Comment on above: Acute pain of left s paulette Start: 08-04-2023 End: 08-04-2023 Subsequent hospital visit by physician [facility] Work Phone: Radiology Comment on above: Acute pain of left s paulette [M25.512] Start: 08-04-2023 End: 08-04-2023 Patient encounter procedure Coretta Parkinson PHLEBOTOMY PROGRAM COORDINATOR.LOCAL GOVERNMENT LEGISLATOR Work Phone: [facility] Comment on above: Acute pain of left s johannaulder (Primary Dx) Start: 07-04-2023 End: 07-04-2023 ambulatory Parker Leiva PHLEBOTOMY PROGRAM COORDINATOR.LOCAL GOVERNMENT LEGISLATOR Work Phone: [facility] Comment on above: MRI Start: 07-04-2023 E-mail encounter fro m caregiver Parker Leiva PHLEBOTOMY PROGRAM COORDINATOR.LOCAL GOVERNMENT LEGISLATOR Work Phone: [facility] Start: 07-04-2023 End: 07-04-2023 Subsequent hospital visit by physician [facility] (I-Stat/1.5t) Work Phone: Radiology Comment on above: Spinal stenosis of c ervical region [M48.02] Start: 06-27-2023 End: 06-27-2023 ambulatory PARKER LEIVA Facility:[facility] Start: 06-20-2023 End: 06-20-2023 ambulatory June Hills DISPLAY CARVER Work Phone: [facility] Comment on above: S/P cervical spinal fusion (Primary Dx) Start: 06-17-2023 End: 06-17-2023 ambulatory PARKER LEIVA Facility:[facility] Start: 06-17-2023 End: 06-17-2023 Subsequent hospital visit by physician [facility] Mob Work Phone: Radiology Comment on above: Acute cervical radic ulopathy [M54.12] Start: 06-14-2023 End: 06-14-2023 ambulatory Coretta O'Franko PT [facility] Comment on above: S/P cervical spinal fusion (Primary Dx) Start: 06-12-2023 ambulatory Parker Leiva PHLEBOTOMY PROGRAM COORDINATOR.LOCAL GOVERNMENT LEGISLATOR Work Phone: [facility] Start: 06-12-2023 Follow-up encounter Parker pimentel PHLEBOTOMY PROGRAM COORDINATOR.LOCAL GOVERNMENT LEGISLATOR Work Phone: [facility] Comment on above: Neck pain follow up Start: 06-07-2023 End: 06-07-2023 ambulatory Coretta O'Franko PT [facility] Comment on above: S/P cervical spinal fusion (Primary Dx) Start: 06-06-2023 ambulatory Mariam damian MD Work Phone: [facility] Comment on above: Neck pain returned Start: 05-20-2023 Telephone encounter Mariam Weaver MD Work Phone: [facility] Start: 05-20-2023 End: 05-20-2023 ambulatory Mariam Weaver MD Work Phone: [facility] Comment on above: S/P cervical spinal fusion (Primary Dx) Start: 05-20-2023 End: 05-20-2023 Telemedicine consultation with patient Mariam Weaver MD Work Phone: [facility] Start: 04-22-2023 End: 04-22-2023 ambulatory Parker Leiva PHLEBOTOMY PROGRAM COORDINATOR.LOCAL GOVERNMENT LEGISLATOR Work Phone: [facility] Comment on above: S/P cervical spinal fusion; Acute postoperative pain Start: 04-22-2023 End: 04-22-2023 Telemedicine consultation with patient Parker Leiva PHLEBOTOMY PROGRAM COORDINATOR.LOCAL GOVERNMENT LEGISLATOR Work Phone: [facility] Start: 04-12-2023 ambulatory Mariam damian MD Work Phone: [facility] Comment on above: [place] paperwork re quest Start: 04-04-2023 Telephone encounter Mariam Weaver MD Work Phone: [facility] Comment on above: Transition Of Care Start: 03-31-2023 Admission to [facility] Mariam Weaver MD Work Phone: [facility] Comment on above: Sore throat and swol ye after surgery Start: 03-31-2023 ambulatory Mariam damian MD Work Phone: [facility] Start: 03-22-2023 End: 03-22-2023 ambulatory Nurse Spine Sea Provider Work Phone: [facility] Comment on above: Preop Education Clas s Start: 03-22-2023 End: 03-22-2023 Preprocedural examination done Nurse Spine Sea Provider Work Phone: [facility] Start: 03-11-2023 End: 03-11-2023 Admission to establishment [facility] Work Phone: [facility] Start: 03-11-2023 End: 03-11-2023 ambulatory [facility] Work Phone: Pre Anesthesia Comment on above: Pre-operative examin ation (Primary Dx); Migraine, unspecified, without mention of intractable migraine without mention of status migrainosus; Insomnia, unspecified type; Former smoker Start: 03-11-2023 End: 03-11-2023 Preprocedural examination done [facility] Work Phone: [facility] Work Phone: Start: 01-14-2023 End: 01-14-2023 ambulatory [employer]-Yajaira Ang Work Phone: [facility] Work Phone: Start: 01-14-2023 End: 01-14-2023 Patient encounter procedure [employer]-Yajaira Ang Work Phone: [facility]-Cat Scan, [facility] Work Phone: Start: 01-14-2023 Telephone encounter Mariam Weaver MD Work Phone: Neurology Comment on above: Schedule Surgery Start: 01-13-2023 End: 01-13-2023 Patient encounter procedure Mariam Weaver MD Work Phone: [facility] Comment on above: Herniated nucleus pu lposus, C6-7 (Primary Dx); History of neck surgery; Left cervical radiculopathy Start: 12-31-2022 End: 12-31-2022 ambulatory [employer]-Yajaira Ang Work Phone: [facility] Work Phone: Start: 12-31-2022 End: 12-31-2022 Patient encounter procedure [employer]-Yajaira Ang Work Phone: [facility]-Ultrasound, [facility] Work Phone: Start: 12-24-2022 End: 12-24-2022 Patient encounter procedure [employer] Giuseppe Ang Work Phone: [facility] Start: 12-17-2022 End: 12-17-2022 Office outpatient visit 25 minutes Darelne Monrealdiana [facility] Start: 10-27-2022 Registered Recurring [employer] Jud Ang Work Phone: [facility]-Physical Therapy Work Phone: Start: 03-03-2022 ambulatory Dave Sepulveda MD Work Phone: [facility] Start: 03-03-2022 Follow-up encounter Dave blake MD Work Phone: Orthopaedics Comment on above: Surgery follow up qu estion Start: 01-04-2022 End: 01-04-2022 Patient encounter procedure Dave Sepulveda MD Work Phone: Orthopaedics Comment on above: 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, left (Primary Dx) Start: 12-11-2021 ambulatory Sarah Vetovit z PA-C Work Phone: Orthopaedics Comment on above: Returning to work Start: 12-07-2021 End: 12-07-2021 Patient encounter procedure Sarah Vetovitz PA-C Work Phone: Orthopaedics Comment on above: 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 3 Work Phone: Pre Anesthesia Comment on above: Pre-op evaluation (P rimary Dx) Start: 11-18-2021 End: 11-18-2021 Preprocedural examination done 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); Numbness of left hand; Left elbow pain Start: 10-30-2021 ambulatory Sarah Vetovit z PA-C Work Phone: [facility] Start: 10-30-2021 Follow-up encounter Sarah Deannt ovitz PA-C Work Phone: Orthopaedics Comment on above: Ultrasound results a nd follow up Start: 10-29-2021 End: 10-29-2021 Subsequent hospital visit by physician [facility] [employer] [address] Radiology Comment on above: 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] Start: 09-28-2021 End: 09-28-2021 Patient encounter procedure Sarah Vetovitz PA-C Work Phone: Orthopaedics Comment on above: 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); Numbness of left hand; Left elbow pain Start: 09-23-2021 Telephone encounter Sarah Vet ovitz PA-C Work Phone: Orthopaedics Comment on above: Chart prep Start: 08-21-2021 End: 08-21-2021 Patient encounter procedure [employer] Darlene Galan [employer] Work Phone: [facility] Start: 07-31-2021 End: 07-31-2021 Patient encounter procedure [employer] Darlene Galan [employer] Work Phone: [facility] Start: 07-24-2021 End: 07-24-2021 Patient encounter procedure [employer] Darlene Galan [employer] Work Phone: [facility] Start: 06-19-2021 End: 06-19-2021 Patient encounter procedure [employer] Darlene Galan [employer] Work Phone: [facility] Start: 06-15-2021 Non-patient / Non-visit [employer] Darlene Galan [employer] Work Phone: [facility] Start: 06-15-2021 End: 06-15-2021 Patient encounter procedure [employer] Darlene Galan [employer] Work Phone: [facility]-Pulmonary Services/Neurology Start: 05-29-2021 End: 05-29-2021 Patient encounter procedure [employer] Darlene Galan [employer] Work Phone: [facility] Start: 04-01-2021 End: 04-01-2021 Patient encounter procedure [employer] Darlene Galan [employer] Work Phone: [facility]-Laboratory, Specimen Start: 03-20-2021 End: 03-20-2021 Office outpatient visit 15 minutes Darlene Galan LOCAL GOVERNMENT LEGISLATOR Work Phone: [facility] Start: 03-13-2021 End: 03-13-2021 Annotation/Addendum Darlene Galan LOCAL GOVERNMENT LEGISLATOR Work Phone: [facility] Start: 03-13-2021 End: 03-13-2021 Patient encounter procedure [employer] Darlene Galan [employer] Work Phone: [facility] Start: 03-06-2021 End: 03-06-2021 Office outpatient visit 15 minutes Darlene Rahdiana LOCAL GOVERNMENT LEGISLATOR Work Phone: [facility] Start: 02-20-2021 End: 02-20-2021 Office outpatient visit 15 minutes Darlene Philipkristidiana LOCAL GOVERNMENT LEGISLATOR Work Phone: [facility] Start: 02-20-2021 Review Darlene Galan LOCAL GOVERNMENT LEGISLATOR Work Phone: [facility] Start: 05-28-2020 End: 05-28-2020 Annotation/Addendum Darlene Galan [facility] Swatch Clerk al Medicine Start: 05-02-2019 End: 05-02-2019 Office outpatient visit 10 minutes Darlene Galan [facility] Start: 04-20-2019 End: 04-20-2019 Annotation/Addendum Darlene Galan [facility] Swatch Clerk al Medicine Start: 04-12-2019 End: 04-12-2019 Patient encounter procedure Darlene Galan [facility] Start: 04-11-2019 End: 04-11-2019 Annotation/Addendum Darlene Galan [facility] Swatch Clerk al Medicine Start: 04-10-2019 End: 04-10-2019 Office outpatient visit 15 minutes Darlene Galan [facility] Start: 03-20-2019 End: 03-20-2019 Office outpatient visit 25 minutes Darlene Galan [facility] Start: 03-06-2019 End: 03-06-2019 Office outpatient new 45 minutes Darlene Galan [facility] Procedures Date Procedure Procedure Detail Performing Clinician Start: 06-22-2024 X-ray of cervical spine Giuseppe Ang NP-C Work Phone: Start: 05-25-2024 Mri spinal canal thoracic w/o & w/contr kristina Orellana MD Work Phone: Start: 05-07-2024 MRI of brain without contrast Giuseppe SMITHC Work Phone: Start: 05-07-2024 MRI of cervical spine Giuseppe SMITHC Work Phone: Start: 08-04-2023 Radex shoulder complete minimum 2 views Coretta Parkinson PHLEBOTOMY PROGRAM COORDINATOR.LOCAL GOVERNMENT LEGISLATOR Work Phone: Start: 07-04-2023 Mri spinal canal cervical w/o contrast kristina Leiva PHLEBOTOMY PROGRAM COORDINATOR.LOCAL GOVERNMENT LEGISLATOR Work Phone: Start: 01-14-2023 CT cervical spine without contrast LABORER [employer]YER FARMGatito Ang Work Phone: Start: 12-31-2022 US scan of thyroid [employer]Gatito Ang Work Phone: Start: 12-24-2022 X-ray of cervical spine [employer] Giuseppe Ang Work Phone: Start: 10-15-2022 End: 10-15-2022 Inital Evaluation (1) - PT Procedure Note: See Note; NOTES: [facility] Physical Therapy [facility] [address] [place] [address] / REHABILITATION SERVICES INITIAL EVALUATION MR#: [id number] Acct: [id number] Name: CLARITZA MARTIN Rep #: [id number] : 1980 41 From: Becky Yañez PT, Cert. MDT Referring Dr.: Dr. Brian Rueda DO Status: RE G R Insurance: [employer] SELF PAY INSURANCE Patient's Visit Information Visit Information Visit Information: CLARITZA MARTIN is a 41 year old F referred to Physical Therapy by Dr. Brian Rueda DO with a diagnosis of CERVICAL DDD, STENOSIS AND RADICULOPATHY. Date of Evaluation: 10/15/22 Physical Therapist: Becky Yañez, PT, Cert MDT Visit Plan Frequency: 2-3x /Week Duration: 4-6 Weeks Plan: MH AND CP NEEDED. GENTLE POSTURE CORRECTION/STRENGTHENING, INSTRUCTION IN APPROPRIATE BODY MECHANICS AND ACTIVITY MODIFICATIONS. GENTLE CORDELL UE ROM, STRETCHING AND STRENGTHENING. HEP INSTRUCTION. Subjective Subjective: Work/Leisure: [employer]. 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 Disability: NO Present symptoms: CORDELL NECK PAIN. ONCE A DAY GETTING TINGLING ALL THE WAY DOWN R UE. L UE SX'S > R. CONSTANT L UE PAIN, NUMBNESS AND TINGLING ALL THE WAY DOWN L UE TO FINGERS. THE SX'S ALSO GO DOWN THE BACK OF HER ARM AND INTO HER SHLD BLADE ON THE LEFT. NUMBESS L NICOLE, TOP OF FOOT AND TOES. I FEEL OFF BALANCE A LITTLE BIT TOO. PATIENT REPORTS SHE IS L HAND DOMINANT AND FEELS WEAKNESS IN THE L ARM AND HAND. INTERMITTENT SHOOTING PAINS INTO L ELBOW. LEFT FACE NUMBNESS. Present since: ABOUT 12 MONTHS AGO. MORE CONSTANT IN LAST 4 WEEKS. Pain Scale: Worst - 7/10 Least - 4/10 Currently: 6/10 Getting Better, Getting Worse, or Staying the Same: Getting Worse. Commenced as a result of: NO APPARENT REASON. Symptoms at onset: NUMBNESS GOING DOWN L ARM AND L UE WEAKNESS Worse: PROLONGED SITTING, PROLONGED STANDING, LYING DOWN IN BED, MOVING LUE, MOVING NECK, HOLDING PURSE ON R SHLD, REACHING WITH EITHER UE. Better: ADVIL, HEAT, ICE Disturbed sleep: YES Previous history/Previous treatment: C56 DISCECTOMY AND FUSION [address] SHILO TAPIA. NOV 2021 L ULNAR N. AREA DEBRIDEMENT SX BY DR. DAVE SEPULVEDA AFTER EMG STUDY - SHE REPORTS THE SX HELPED RELIEVE IT BUT IT STILL ALWAYS HURT AND ALWAYS FELT WEAK AND HAS PROGRESSIVELY GOT WORSE. NOV 2021 PRIOR TO ULNAR N. SX TRIED NECK INJECTIONS WITHOUT SUCCESS. TRIED PT PRIOR TO FIRST SX WITHOUT SUCCESS. NO CHIROPRACTIC. This episode: ABOUT 4 WKS AGO SHE STATES THE PAIN BECAME UNBEARABLE SO SOUGHT ANOTHER OPINION FROM DR. RUEDA. EMG PENDING OCT 25 2022 OF L UE. RECENT NECK X-RAY - SEE BELOW. CURRENTLY ON GABAPENTIN - PATIENT REPORTS IT IS NOT WORKING. MRI ORDERED BUT DENIED PENDING OUTCOME OF PT PER PATIENT REPORT. Dizziness: YES Tinnitis: NO Nausea: YES - ESPECIALLY AT NIGHT WHEN PAIN INCREASES. Shortness of Breath: NO Difficulty Swollowing: NO Gait: INTERMITTENTLY FEELS OFF BALANCE. STATES SHE HAS STUMBLED BUT NOT FALLEN. Accidents: NO Unexplained weight loss: NO Imaging: MRI OF CERVICAL SPINE 08/21/[address] CORONADO UNCHARNGED FROM 06/16/20. 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 PMH/Recent major surgery: UNREMARKABLE. Objective Objective: Sitting Posture/Standing Posture: POOR. FH. RSH'S. NO TORTICOLLIS. Active Correction of posture: WORSE. PATIENT C/O INCREASED PULLING IN NECK AND SHLD BLADE AND DOWN ARM WITH POSTURE CORRECTION. Other Observations: INDEP GAIT AND TRANSFERS AND GUARDING OBSERVED WITH BOTH. NO LOB OR STUMBLING OBSERVED. NO AD'S. Sensory deficit: DECREASED LIGHT TOUCH SENSATION L LATERAL SHLD, LATERAL UPPER ARM, LATERAL FOREARM AND ULNAR BOARDER OF L HAND INTO L 3 DIGITS. R UE LIGHT TOUCH SENSATION GROSSLY INTACT. ROM deficit: R UE WFL BUT OVER HEAD MVMTS ARE SLOW AND GUARDED WITH C/O PULLING PAINS IN NECK AND L SHLD. PATIENT UNABLE TO ELEVATE L UE > 90 DEG. SHE HAS FULL L ELBOW FLEX/EXT, FULL FOREARM, WRIST AND HAND ROM BUT THESE MVMTS ARE GUARDED WELL. Motor deficit: L PARTS ROOM ASSISTANT STRENGTH 12 LBS AND RIGHT 40 LBS. PATIENT IS L HAND DOMINANT. R SHLD 4-/5, ELBOW 4/5. L SHLD 2/5, ELBOW 3+/5. Reflexes: R UE DTR'S 2/3. L UE BICEP 1/3 AND FOREARM ABSENT. Dural Signs: POSITIVE CORDELL UE'S. Cervical Mvmt Loss: Flex: MOD - INCREASES NECK PAIN AND L UE NUMBNESS. Pro: MOD - INCREASES NECK PAIN Ext: MOD - INCREASES NECK PAIN AND L UE NUMBNESS. Ret: ROSALES - INCREASES L UE NUMBESS RSB: MOD - PULLS AND HURTS DOWN THE BACK OF L UE. LSB: ROSALES - HURTS IN THE NECK AND DOWN THE ARM R Rot: MIN - PULLS IN L UE AND INCREASES NUMBNESS L Rot: MOD - L NECK PAIN AND PAIN DOWN L UE. PRODUCES L FACE NUMBNESS. Postural strength: POOR TREATMENT: INSTRUCTED PATIENT TO TRY TO AVOID PAIN AND PERIPHERALIZATION OF SX'S WITH EX AND ACTIVITY. INSTRUCTED PATIENT IN GENTLE AROM OF L UE TOLERATED BELOW 90 DEGREES TO HELP MAINTAIN ROM AND STIMULATE CIRCULATION. INSTRUCTED IN SUBMAX CERVICAL ISOMETRICS ALL PLANES X 3 REPS, 3 SEC EA, 3 TIMES A DAY TO STIMULATE CIRCULATION TOLERATED AND ABLE WITHOUT INCREASING SX'S. PATIENT COMMUNICATED A GOOD UNDERSTANDING OF ALL INSTRUCTIONS AFTER GIVEN TODAY. OTHER: PATIENT MAY BENEFIT FROM FURTHER IMAGING HER PAIN IS EASILY INCREASED WITH GENTLE TESTING OF HER NECK AND EXTREMITIES TODAY. Balance/Special Test Scores Oswestry Neck Score: 34 Goals Goal 1:: DECREASE C/O NECK AND CORDELL UE SX'S. Goal Time Frame: 4-6 Weeks Goal 2:: IMPROVE PERSONAL CARE, LIFTING, READING, SLEEP, WORK, DRIVING AND RECREATIONAL FUNCTION Goal Time Frame: 4-6 Weeks Goal 3:: INSTRUCT IN PROPHYLAXIS Goal Time Frame: 4-6 Weeks Anticipated Interventions Patient/Client Instruction: Educate patient on: Condition, Plan of Care and Risk Factors For the Purpose of:: To improve self management Therapeutic Exercise to Include: Strength training, Body mechanics, Postural training, Flexibilty training, Neuromotor development and Scapular Strength/Stabilization For the Purpose of:: To decrease pain, To increase ROM, To improve muscle performance and motor function, To increase tolerance to activity/condition/position and To improve ability of physical actions for home/community/work/leisure Cryotherapy (ice pack, ice massage): Yes Thermo therapy (hot pack): Yes For the Purpose of:: To decrease pain and To decrease swelling/inflammation Text: Thank you for the opportunity to evaluate your patient. For Medicare and Medicare HMO plans, please review the plan of care and approve it. It will need to be FAXED BACK to us at [phone] for Medicare purposes. For Medicare only, by signing this I certify the plan of care. Please let me know if there are questions or concerns regarding this plan of care. Physician Signature: Date: <Electronically signed by Becky Yañez PT, Cert. MDT> 10/15/22 [id number] CC: TONIA Ang; Dr. Brian Rueda, JUDSON Signed Darlene Galan Start: 10-29-2021 lmtd joint/oth nonvasc xtr strux r-t w/img Sarah Wesley PA-C Work Phone: Start: 08-21-2021 MRI of cervical spine LABOR[employer] FARMGatito Galan NP Work Phone: Start: 08-21-2021 End: 08-21-2021 Spine Cervical (Routine) Procedure Note: See Note; NOTES: [facility] Imaging Services [address] [place] [address] Spine Cervical (Routine) MR#: [id number] Acct: [id number] Name: CLARITZA MARTIN Rep #: [id number] : 1980 F 40 From: Mariam Barr MD PCP: TONIA [facility] Status: REG CLI Study: Spine Cervical (Routine) Date of Exam: Exam# [id number] Ordering Dr: Alex Coronado DO STUDY: MRI CERVICAL SPINE WITHOUT CONTRAST REASON FOR EXAM: Female, 40 years old. arm numbness/tingling TECHNIQUE: Standardized fat and water weighted pulse sequences were obtained in the sagittal and axial planes. COMPARISON: 06/16/2020 FINDINGS: Normal foramen magnum and brainstem-cervical cord junction. Normal craniovertebral junction. Normal anterior atlantoaxial articulation. Normal odontoid process. There is straightening of the normal cervical lordosis. Normal vertebral bodies and posterior osseous elements. C2-3: Normal endplates. Normal disc height, signal and morphology. Normal central canal and intervertebral neural foramina. C3-4: Normal endplates. Normal disc height, signal and morphology. Normal central canal and intervertebral neural foramina. C4-5: Normal endplates. Normal disc height, signal and morphology. Normal central canal and intervertebral neural foramina. C5-6: Status post discectomy and interbody fusion with anatomic alignment with no spinal stenosis or neural foraminal stenosis which is unchanged. C6-7: Normal endplates. Normal disc height, signal and morphology. Normal central canal and intervertebral neural foramina. C7-T1: Normal endplates. Normal disc height, signal and morphology. Normal central canal and intervertebral neural foramina. Normal cervical cord. Normal visualized soft tissue structures. MRI/Spine Cervical (Routine) IMPRESSION: No change from 06/16/2020. Electronically Signed: Mariam Barr MD at 15:39 EDT , CC: LABOR[employer] FRYER FARMGatito Galan; Dr. Alex Coronado DO Template Worker: Signed Darlene Galan Start: 07-31-2021 Plain x-ray of elbow [employer]-C Darlene Galan [employer] Work Phone: Start: 07-31-2021 End: 07-31-2021 Elbow min 3 Views Procedure Note: See Note; NOTES: [facility] Radiology [address] [place] [address] Elbow min 3 Views MR#: [id number] Acct: [id number] Name: CLARITZA MARTIN Rep #: [id number] : 1980 F 40 From: Sharan anderson MD PCP: TONIA [facility] Status: DEP AMB Study: Elbow min 3 Views Date of Exam: 07/31/21 Exam# [id number] Ordering Dr: Narayan Santiago DO STUDY: X-RAY - LEFT ELBOW REASON FOR EXAM: Female, 40 years old. Pain TECHNIQUE: 3 view(s) of the elbow. COMPARISON: None. FINDINGS: Normal visualized humerus, radius and ulna. Normal radiocapitellar and ulnotrochlear articulations. The soft tissue structures are unremarkable. RAD/Elbow min 3 Views IMPRESSION: Normal x-ray examination of the elbow. Electronically Signed: Sharan Beach MD at 15:06 EDT , CC: [employer]-Yajaira Galan; Dr. Narayan Santiago DO Template Worker: Signed Darlene Galan Start: 07-31-2021 End: 07-31-2021 Orthopedic Visit Report Procedure Note: See Note; NOTES: [facility] [address] [place] [address] [address] [place] [address] OFFICE VISIT Date of Service: 07/31/21 MR#: [id number] Acct: [id number] Name: CLARITZA MARTIN Rep #: [id number] : 1980 Provider: Dr. Narayan friedman DO Age/Sex: 40/F Location: [facility] [place].TOBI Status: Signed Intake Intake Visit Reasons: LEFT ELBOW Allergies No Known Allergies Allergy (Verified 07/31/21 11:26) Medications celecoxib 200 mg capsule (Celebrex) 200 mg PO DAILY #30 caps 07/31/21 [Rx Confirmed 07/31/21] PFSH Medical History (Updated 07/31/21 @ 11:32 by Helen Lopez) Lump of right breast Surgical History Hx of cholecystectomy Hx of dilation and curettage Hx of eye surgery Hx of hysterectomy Hx of right breast biopsy Hx of tonsillectomy Family History Father Diabetes Hypertension Brother Diabetes Aunt Breast cancer Social History Smoking Status: Current some day smoker second hand exposure: No alcohol intake: current alcohol intake frequency: holidays/special occasions only substance use type: does not use caffeine: Yes what type of physical activity do you participate in: none frequency: does not exercise seatbelt use: always HPI LEFT ELBOW Details: Parts of this documentation were recorded by a scribe, this documentation accurately reflects the service provided and the decisions made by me, Dr. Narayan Santiago, 07/31/21 0759. CLARITZA MARTIN is a 40 year old F here today for left elbow pain. Pt states she has has this pain for a year. Pt states the pain, numbness, and tinglin starts at the base of her shoulder blade and goes all the way down to her fingers on the ulnar side. Pt states she has had an injection in her neck but didn't give her any relief and she had a reaction to the steroid and would not be open to further steroid injections. Pt also states she had an EMG completed as well. Pt states she was having this same issue starting at her neck but had a disc replacement in her neck which initially helped but now is having the same issue. Pt denies any recent PT, injuries, or surgeries. Ortho Exam General General: Yes no acute distress Neurologic: Yes alert and Yes oriented x3 Psychologic: Yes reasonable and appropriate Left Elbow Test: No Thenar Atrophy, No Ulnar Nerve Subluxation, Yes Tinel's and No Hypothenar Atrophy ROM: Yes Flexion 0-140, Extension 0, Supination 0-90 and Pronation 0-80 Sensation: Radial: I, Ulnar: I and Median: I Motor: Elbow Extension: 5, Elbow Flexion: 5, EPL: 5, FDP-2: 5 and 1st Dorsal Interosseous: 5 ELBOW: full extension no joint effusion no ulnar nerve subluxation Positive direct compression and hyperflexion test at the elbow Supplemental Info 07/31/2021 x-ray left elbow: Normal 06/15/2021 EMG left upper extremity:This is an abnormal study. There is electrophysiologic evidence of a chronic, left, C7 radiculopathy. There is no active denervation to suggest ongoing motor axon loss. There is no electrophysiologic evidence of a superimposed median or ulnar neuropathy in the left upper extremity. 06/16/2020 MRI cervical spine: 1.??? Metallic signal distortion of the spinal cord and vertebral endplates at C5-C6 disc level in all sagittal views. 2.??? Otherwise normal MRI cervical spine and the included upper thoracic spine. Coding Level of Care Code Off vis,est,level 3 Assessment and Plan Assessment and Plan Orders: Orders Elbow min 3 Views Today M25.522 - Pain in left elbow Medications: New celecoxib (Celebrex) 200 mg PO DAILY 30 caps 0RF Plan Details Additional Comments: Claritza has a history of cervical spine disc replacement at C5-C6 she did have x-rays of her cervical spine 05/29/2021 which were without concern for the hardware . At this point she is having signs of cubital tunnel on the left however she also has radiating pain to her shoulder blade that is in continuity with this she has an EMG with chronic C7 radiculopathy and no evidence of ulnar nerve entrapment at the elbow however on clinical exam provocative maneuvers definitely stimulate her symptoms. She did have an MRI of her cervical spine in June 2020 which did not show any significant stenosis. X-rays of her elbow today also are benign. At this point I recommend conservative treatment to start we will have her splint the left elbow in extension at night for 6 weeks in addition I will send her in a prescription for Celebrex (patient has been getting gastritis from ibuprofen) and gave her home exercise program for nerve glides we also offered the patient declined formal physical therapy. Patient declined cubital tunnel injection today as she has had a reaction to the steroid injection in her neck. Follow up in 6 weeks of not better or sooner if pain, swelling, numbness or associated symptoms, or concerns develop. All questions answered. Patient in agreement of plan. 07/31/21 1220 <Electronically signed by Narayan Santiago DO> Date Narayan Santiago DO Cosigner Signature: Date (if applicable) CC: Darlene Galan Start: 07-24-2021 End: 07-24-2021 Orthopedic Visit Report Procedure Note: See Note; NOTES: [facility] [address] [place] [address] OFFICE VISIT Date of Service: 07/24/21 MR#: [id number] Acct: [id number] Name: CLARITZA MARTIN Rep #: [id number] : 1980 Provider: Dr. Alex birmingham DO Age/Sex: 40/F Location: [facility] [place].TOBI Status: Signed Intake Intake Visit Reasons: cervical spine Allergies No Known Allergies Allergy (Verified 05/29/21 10:42) Medications NK 06/19/21 [History Confirmed 07/24/21] [facility] Medical History (Updated 06/19/21 @ 12:[address] Alex Coronado DO) Lump of right breast Surgical History Hx of cholecystectomy Hx of dilation and curettage Hx of eye surgery Hx of hysterectomy Hx of right breast biopsy Hx of tonsillectomy Family History Father Diabetes Hypertension Brother Diabetes Aunt Breast cancer Social History Smoking Status: Current some day smoker second hand exposure: No alcohol intake: current alcohol intake frequency: holidays/special occasions only substance use type: does not use caffeine: Yes what type of physical activity do you participate in: none frequency: does not exercise seatbelt use: always HPI cervical spine Details: Parts of this documentation were recorded by a scribe, this documentation accurately reflects the service provided and the decisions made by me, Dr. Alex Coronado, 07/24/21 6244. CLARITZA MARTIN is a 40 year old F here today for 2 week F/ after having cervical epidural injection with Dr. Gruber. She states that the injection did not help with her pain at all. She states that she had the flushing reaction and itching for about 4 days after the injection. She now has a cervical achiness which was not there prior to the injection. Continues to have the left arm pain and numbness and tingling. Steroid injection done by Dr. Gruber did not help her at all. Her neck is actually little sore from it but that will pass. This lends credence to the fact that is probably not really the C7 nerve root even though that is what the EMG nerve conduction suggested. 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 She has a very positive Tinel's there. She bends her elbows for more than 20 seconds the symptoms get worse all the way to her small and partial or index fingers. Sending her to for consideration of an anterior transposition of the left ulnar nerve. I would like to see her a couple of months after the nerve is transposed and see if that posterior shoulder pain is gone also. I would concentrate on the ulnar nerve at this time. 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 [address] [place] [address] [address] [place] [address] OFFICE VISIT Date of Service: 06/19/21 MR#: [id number] Acct: [id number] Name: CLARITZA MARTIN Rep #: [id number] : 1980 Provider: Dr. Alex birmingham DO Age/Sex: 40/F Location: [facility] [place].[facility] Status: Signed Intake Intake Visit Reasons: CERVICAL SPINE Allergies No Known Allergies Allergy (Verified 05/29/21 10:42) Medications NK 06/19/21 [History] PFSH Medical History (Updated 06/19/21 @ 12:[address] Alex Coronado DO) Lump of right breast Surgical History Hx of cholecystectomy Hx of dilation and curettage Hx of eye surgery Hx of hysterectomy Hx of right breast biopsy Hx of tonsillectomy Family History Father Diabetes Hypertension Brother Diabetes Aunt Breast cancer Social History Smoking Status: Current some day smoker second hand exposure: No alcohol intake: current alcohol intake frequency: holidays/special occasions only substance use type: does not use caffeine: Yes what type of physical activity do you participate in: none frequency: does not exercise seatbelt use: always HPI CERVICAL SPINE Details: Parts of this documentation were recorded by a scribe, this documentation accurately reflects the service provided and the decisions made by me, Dr. Alex Coronado DO 06/19/21 1059. CLARITZA MARTIN is a 40 year old F here today for EMG review. Pt denies any changes since last appointment. Claritza returns after her EMG nerve conduction study of her left upper extremity. She is in the company of her . Her artificial disc replacement was at the 5 6 level 2 years ago. She had similar arm pain then but the arm pain was all gone for a whole year. Then the pain returned. She thinks it was in the same area but she is not sure. When I examined her last I felt that she had ulnar nerve neuropathy at the left elbow. In fact on examination today she still has a positive Tinel's at the elbow in the cubital tunnel. Regardless the EMG nerve conduction study demonstrates that she has a C7 radiculopathy instead. However when I look at her MRI again I see no evidence of pressure on the left C7 nerve root. However the MRI scan is a year old. Considering order a new MRI scan however before I do that I would like her to go ahead and have an epidural steroid injection. This will serve both a diagnostic and therapeutic purpose. I will send her to Dr. Gruber for the cervical epidural. I would like to see her 2 weeks after the epidural and I will make further recommendations at that time. However I still have suspicions that she has ulnar nerve neuropathy at the left elbow regardless of the EMG nerve conduction findings. 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 Laterality: left C7 radiculopathy M54.12 Time Spent (min) 25 Assessment and Plan Assessment and Plan (1) Ulnar nerve neuropathy: Status: Acute Qualifiers: Laterality: left Qualified Code(s): G56.22 - Lesion of ulnar nerve, left upper limb (2) C7 radiculopathy: Status: Acute 06/19/21 1222 <Electronically signed by Alex Coronado DO> Date Alex Coronado DO Cosigner Signature: Date (if applicable) CC: [employer] Darlene Galan; MD Darlene Sheth Start: 06-15-2021 End: 06-15-2021 NCS and/or EMG Patient Procedure Note: See Note; NOTES: [facility] [address] [place] [address] MR#: [id number] Acct: [id number] Name: CLARITZA MARTIN Rep #: [id number] : 1980 40 From: Damon Garcia DO Referring Dr: Status: REG CLI Location: PSN Date: 06/15/21 Sex: F C NCS and/or EMG Patient Report Ordering Doctor: Alex Coronado DATE OF SERVICE: 06/15/21 Indication: Intermittent pain radiating down the lateral left arm. Sensory disturbance of the lesser fingers. Evaluate for entrapment neuropathy. History of cervical spine surgery. Findings: Nerve conduction studies were performed in the left upper extremity. The left median motor study recording the abductor pollicis brevis showed a normal amplitude, normal distal latency and normal conduction velocity. The left ulnar motor study recording the abductor digiti minimi showed a normal amplitude, normal distal latency and normal conduction velocity. No conduction block or focal slowing was present across the elbow. The left median sensory response recording digit two showed a normal amplitude, latency and conduction velocity. The left ulnar sensory response recording digit five showed a normal amplitude, latency and conduction velocity. The left radial sensory response recording over the extensor snuff box showed a normal amplitude, latency and conduction velocity. Left median-ulnar lumbrical / interosseous motor latencies showed a normal median latency compared to the ulnar. Needle EMG of the left upper extremity and cervical paraspinal muscles was performed. No denervation was seen in any muscle. Complex repetitive discharges were seen in the lower cervical paraspinal muscles. The triceps demonstrated motor units which were large amplitude, long duration with reduced recruitment. The flexor carpi radialis revealed motor units which were slightly large and polyphasic with normal recruitment. All other sampled motor unit morphology, activation and recruitment patterns were normal. Impression: This is an abnormal study. There is electrophysiologic evidence of a chronic, left, C7 radiculopathy. There is no active denervation to suggest ongoing motor axon loss. There is no electrophysiologic evidence of a superimposed median or ulnar neuropathy in the left upper extremity. Maco Garcia D.O. Multi Select Codes Neurology Neurology Interp Codes: 45736-12 Musc test done w/n test comp (interp) and 01838-28 Nrv cndj test 7- 8 studies (interp) 06/15/21 1511 <Electronically signed by Damon Garcia DO> Date Damon Garcia DO CC: [employer] Darlene Galan; Dr. Maco Garcia DO; Dr. Alex Coronado DO Date Dictated: 06/15/21 150 Date Transcribed: 06/15/21 150 Template Worker: CG Signed Darlene Angelia Start: 05-29-2021 X-ray of cervical spine [employer] Darlene Galan [employer] Work Phone: Start: 05-29-2021 End: 05-29-2021 Cerv Spine 2 or 3 Views Procedure Note: See Note; NOTES: [facility] [address] [place] [address] Cerv Spine 2 or 3 Views MR#: [id number] Acct: [id number] Name: CLARITZA MARTIN Rep #: [id number] : 1980 F 40 From: Mariam Barr MD PCP: T[facility] Status: DEP AMB Study: Cerv Spine 2 or 3 Views Date of Exam: 05/29/21 Exam# [id number] Ordering Dr: Alex Coronado DO STUDY: X-RAY - CERVICAL SPINE REASON FOR EXAM: Female, 40 years old. pain TECHNIQUE: 2 view(s) of the cervical spine were obtained. COMPARISON: None FINDINGS: Normal anterior atlantoaxial articulation. Normal odontoid process. Normal cervical lordosis. Normal vertebral bodies and endplates. Status post discectomy and interbody fusion at C5/C6 with anatomic alignment. Normal visualized intervertebral neuroforamina. The soft tissue structures are unremarkable. RAD/Cerv Spine 2 or 3 Views IMPRESSION: Status post discectomy and interbody fusion at C5/C6 with anatomic alignment. Electronically Signed: Mariam Barr MD at 16:55 EDT , CC: TONIA Galan; Dr. Alex Coronado DO Template Worker: Signed Darlene Galan Start: 05-29-2021 End: 05-29-2021 Orthopedic Visit Report Procedure Note: See Note; NOTES: [facility] [address] [place] [address] OFFICE VISIT Date of Service: 05/29/21 MR#: [id number] Acct: [id number] Name: CLARITZA MARTIN Rep #: [id number] : 1980 Provider: Dr. Alex birmingham DO Age/Sex: 40/F Location: [facility] [place].[facility] Status: Signed Intake Vital Signs 05/29/21 10:42 Height 5 ft 2 in Intake Visit Reasons: CERVICAL SPINE Allergies No Known Allergies Allergy (Verified 05/29/21 10:42) PFSH Medical History (Updated 05/29/21 @ 11:[address] Alex Coronado DO) Lump of right breast Surgical History (Updated 07/14/17 @ 15:[address] Joseph Zabala MD) Hx of cholecystectomy Hx of dilation and curettage Hx of eye surgery Hx of hysterectomy Hx of right breast biopsy Hx of tonsillectomy Family History Father Diabetes Hypertension Brother Diabetes Aunt Breast cancer Social History (Updated 09/14/17 @ 12:[address] Joseph Zabala MD) Smoking Status: Current some day smoker second hand exposure: No alcohol intake: current alcohol intake frequency: holidays/special occasions only substance use type: does not use caffeine: Yes what type of physical activity do you participate in: none frequency: does not exercise seatbelt use: always HPI CERVICAL SPINE Details: Parts of this documentation were recorded by a scribe, this documentation accurately reflects the service provided and the decisions made by me, Dr. Alex Coronado, DO 05/29/21 1039. CLARITZA MARTIN is a 40 year old F NEW Pt here today for neck pain and second opinion. Pt states she had surgery on C5 and C6 in 06/2019 at [facility]. Pt states since she healed from the surgery she is back to having pain on left side with pain, numbness, tingling, and burning that radiates down her lateral arm all the way to her ring finger and pinky. Pt denies any previous injections. Claritza is a delightful young lady 40 years old who has chief complaint of numbness and some degree of pain that goes from the elbow into the small and part of the ring finger. Did very well postoper atively after her surgery. She was back to working out and doing well. Regional arm pain was all gone. Then this started developing slowly perhaps a year ago and has certainly gotten worse since. She works out on a regular basis including weight lifting. He also complains of pain on the medial side of her left elbow. She is right-hand dominant. She also complains of some discomfort over the base of the neck on the left with some posterior shoulder pain there that even goes a little bit into the upper arm. But her major complaint is the pain on the medial side of the elbow with the numbness and tingling that goes down along the ulnar side of the forearm. It oftentimes wakes her up at night she tends to sleep with her elbows bent. It bothers her when she is driving a car also. On examination she has a negative Spurling's to the left and right. She has hardly any discomfort at all with extension or flexion of her cervical spine. She has good motor strength of all the major muscle groups of both upper extremities. She has no long tract signs. Clonus is absent Babinski's are downgoing. She has 2+ triceps biceps and brachioradialis reflexes bilaterally. She has no intrinsic wasting of her left hand. He has good motor strength of the hypothenar and thenar musculature. He has well-developed first dorsal interosseous muscles on both hands. If I hold her elbows in a flexed posture the numbness gets worse and worse. 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 Even then there was evidence of mild cubital tunnel. However is gotten worse since then. To confirm the worsening however we should repeat the EMG nerve conduction study. I will see her after that study and make further recommendations however I suspect that she will need an anterior transposition of the left ulnar nerve at the elbow. Ortho Exam General General: Yes no acute distress Neurologic: Yes alert and Yes oriented x3 Psychologic: Yes reasonable and appropriate Coding Level of Care Code Off vis,new,level 3 Diagnoses Ulnar nerve neuropathy G56.20 Time Spent (min) 30 Assessment and Plan Assessment and Plan (1) Ulnar nerve neuropathy: Status: Acute Plan Details Other Orders: Orders: Cerv Spine 2 or 3 Views Today R52 05/29/21 1141 <Electronically signed by Alex Coronado DO> Date Alex Coronado DO Cosigner Signature: Date (if applicable) CC: [employer]Yajaira Galan Start: 03-13-2021 End: 03-13-2021 Thyroid Comments: See Note; NOTES: [facility] Imaging Services [address] [place] [address] Thyroid MR#: [id number] Acct: [id number] Name: CLARITZA MARTIN Rep #: [id number] : 1980 F 40 From: Sharan anderson MD PCP: TON[facility] Status: REG CLI Study: Thyroid Date of Exam: 03/13/21 Exam# [id number] Ordering Dr: Darlene Galan NP STUDY: THYROID ULTRASOUND REASON FOR EXAM: Female, 40 years old. GOITER TECHNIQUE: Ultrasound evaluation of the thyroid was performed with real-time and static ramirez-scale imaging. COMPARISON: None. FINDINGS: RIGHT LOBE: The right lobe of the thyroid gland is enlarged and measures 5.5 cm x 2.2 cm x 1.9 cm. There is a homogeneous echotexture. There are no demonstrated solid, cystic or complex lesions. LEFT LOBE: The left lobe of the thyroid gland is enlarged and measures 5.5 cm x 1.8 cm x 1.8 cm. There is a homogeneous echotexture. There is a 1.2 cm x 0.9 cm x 1.1 cm isoechoic solid nodule with cystic areas in the lower pole of the left lobe. This measures 1.2 cm x 0.9 cm x 1.1 cm. ISTHMUS: The isthmus measures 2 mm. The regional lymph nodes are normal. US/Thyroid IMPRESSION: Enlargement of both lobes of the thyroid gland. There is a 1.2 cm x 0.9 cm x 1.1 cm solid nodule with cystic areas in the lower pole of the left lobe. This may represent a colloid nodule. Correlation with nuclear medicine uptake and thyroid scan is recommended. Electronically Signed: Sharan Beach MD at 11:16 EST Reading Location ID and State: [facility] / [place] , Service support , CC: TONIA Galan Template Worker: Signed Darlene Galan CNP Work Phone: Start: 03-13-2021 Thyroid TONIA Galan NP Work Phone: Start: 06-16-2020 End: 06-16-2020 Spine Cervical (Routine) Comments: See Note; NOTES: [facility] Imaging Services [address] [place] [address] Spine Cervical (Routine) MR#: [id number] Acct: [id number] Name: CLARITZA MARTIN Rep #: [id number] : 1980 F 39 From: Viktor Tabares MD PCP: [facility] Status: REG CLI Study: Spine Cervical (Routine) Date of Exam: Exam# [id number] Ordering Dr: Sujey Armijo NP [employer] STUDY: MRI CERVICAL SPINE WITHOUT CONTRAST REASON FOR EXAM: Female, 39 years old. CERVICAL STENOSIS TECHNIQUE: Standardized fat and water weighted pulse sequences were obtained in the sagittal and axial planes. COMPARISON: 04/17/2019. FINDINGS: Normal foramen magnum and brainstem-cervical cord junction. Normal craniovertebral junction. Normal anterior atlantoaxial articulation. Normal odontoid process. Straightening of the C-spine curve. Normal vertebral bodies and posterior osseous elements. C2-3: Normal endplates. Normal disc height, signal and morphology. Normal central canal and intervertebral neural foramina. C3-4: Normal endplates. Normal disc height, signal and morphology. Normal central canal and intervertebral neural foramina. C4-5: Normal endplates. Normal disc height, signal and morphology. Normal central canal and intervertebral neural foramina. C5-6: Signal distortion artifacts due to metallic implant obliterating the vertebral endplates and the ventral half of the spinal cord in all sagittal sequences. Normal central canal and intervertebral neural foramina. C6-7: Normal endplates. Normal disc height, signal and morphology. Normal central canal and intervertebral neural foramina. C7-T1: Normal endplates. Normal disc height, signal and morphology. Normal central canal and intervertebral neural foramina. T1-T2: (Sagittal only). Normal endplates. Normal disc height, signal and morphology. Normal central canal and intervertebral neural foramina. T2-T3, T3-T4 and T4-5: (Sagittal only). Normal endplates. Minimal disc space height narrowing with normal disc signal and morphology. No ventral extradural defect. Normal central canal and intervertebral neural foramina. Normal cervical spinal cord in the axial projection the sagittal view has signal distortion and obliteration of the spinal cord at C5-C6 disc level. Spinal cord above and below C5-C6 disc space level are normal. Normal visualized soft tissue structures. MRI/Spine Cervical (Routine) IMPRESSION: 1. Metallic signal distortion of the spinal cord and vertebral endplates at C5-C6 disc level in all sagittal views. 2. Otherwise normal MRI cervical spine and the included upper thoracic spine. Electronically Signed: Viktor Tabares MD at 15:07 EDT , Service support , CC: TONIA Armijo; TONIA Galan Template Worker: Signed Darlene Galan CNP Work Phone: Start: 04-17-2019 End: 04-17-2019 Spine Cervical (Routine) Comments: See Note; NOTES: [facility] Imaging Services [address] [place] [id number] Spine Cervical (Routine) MR#: [id number] Acct: [id number] Name: CLARITZA MARTIN Rep #: [id number] : 1980 F 38 From: Mariam Barr MD PCP: TONIA St Status: REG CLI Study: Spine Cervical (Routine) Date of Exam: 04/17/19 Exam# [id number] Ordering Dr: Darlene Galan STUDY: MRI CERVICAL SPINE WITHOUT CONTRAST REASON FOR EXAM: Female, 38 years old. Radiculopathy, left sided neck pain, left arm numbness TECHNIQUE: Standardized fat and water weighted pulse sequences were obtained in the sagittal and axial planes. COMPARISON: X-ray 03/06/2019 FINDINGS: Normal foramen magnum and brainstem-cervical cord junction. Normal craniovertebral junction. Normal anterior atlantoaxial articulation. Normal odontoid process. Normal cervical lordosis. Normal vertebral bodies and posterior osseous elements. C2-3: Normal endplates. Normal disc height, signal and morphology. Normal central canal and intervertebral neural foramina. C3-4: Normal endplates. Normal disc height, signal and morphology. Normal central canal and intervertebral neural foramina. C4-5: Normal endplates. Normal disc height, signal and morphology. Normal central canal and intervertebral neural foramina. C5-6: Mild broad disc osteophyte complex with loss of disc height produces mild spinal stenosis but no neural foraminal stenosis. C6-7: Normal endplates. Normal disc height, signal and morphology. Normal central canal and intervertebral neural foramina. C7-T1: Normal endplates. Normal disc height, signal and morphology. Normal central canal and intervertebral neural foramina. Normal cervical cord. Normal visualized soft tissue structures. MRI/Spine Cervical (Routine) IMPRESSION: Mild focal degenerative disc disease at C5/C6. Electronically Signed: Mariam Barr MD at 14:05 EST Tel , Service support , CC: [employer] Darlene Galan Template Worker: Signed Darlene Galan Work Phone: Start: 04-11-2019 End: 04-11-2019 NCS and/or EMG Patient Comments: See Note; NOTES: [facility] Pulmonary Services/Neurology [address] [place] [address] MR#: [id number] Acct: [id number] Name: CLARITZA MARTIN Rep #: [id number] : 1980 38 From: Mark Hill MD Referring Dr: Darlene Galan [employer] Status: REG CLI Location: PSN Date: 04/11/19 Sex: F C NCS and/or EMG Patient Report Ordering Doctor: Darlene Galan DATE OF SERVICE: 04/11/19 Claritza Martin is a 38-year-old female who presents for electrodiagnostic testing of the left upper limb. Reports neck and left upper extremity pain for the past 4 months. Electrodiagnostic findings: Left median motor nerve demonstrates normal distal latency, amplitude and conduction velocity. Left ulnar motor response demonstrates normal distal latency and amplitude with an approximately 20% drop in conduction across the elbow. Normal sensory responses. On needle EMG, all muscles tested in the left upper limb showed no evidence of denervation with normal motor unit action potentials. Electrodiagnostic impression: This is an abnormal study in the left upper limb. 1. Electrodiagnostic findings demonstrate left-sided ulnar neuropathy, consistent with a mild cubital tunnel syndrome 2. No electrodiagnostic evidence is noted for median neuropathy or carpal tunnel syndrome. 3. There is no electrodiagnostic evidence for cervical radiculopathy. If there are any further questions, please do not hesitate to contact me. 04/11/19 1554 <Electronically signed by Mark Hill MD> Date Mark Hill MD CC: TONIA Galan; Mark Hill MD Date Dictated: 04/11/19 142 Date Transcribed: 04/11/191419 Template Worker: AA Signed Darlene Galan Start: 03-23-2019 End: 03-23-2019 Inital Evaluation (1) - PT Comments: See Note; NOTES: [facility] Physical Therapy [facility] [address] [place] [address]. [address] [place] [id number] / REHABILITATION SERVICES INITIAL EVALUATION MR#: [id number] Acct: [id number] Name: CLARITZA MARTIN Rep #: [id number] : 1980 38 From: Nyla Haywood PT, Cert. T, OCS Referring DrRadha: TONIA Galan Status: REG RCR Insurance: [facility] PACKAGE PLAN Patient's Visit Information CLARITZA MARTIN is a 38 year old F referred to Physical Therapy by TONIA St with a diagnosis of CERVICAL RADICULOPATHY. Date of Evaluation: 03/21/19 Physical Therapist: Nyla Haywood PT, Cert MDT, OCS - Visit Plan Frequency: 2x /Week Duration: 4 Weeks Plan: PT INTERVENTIONS MANUAL THERAPY TRACTION,CP,MECKENZIE EX'S,POSTURAL EX'S - Subjective Findings: This 38 y/o female presents to physical therapy cervical radiculopathy. Pateint developed right shoulder pain with parathesia in fingers about 6 weeks ago. Patient stated pain intermittant with parathesia/tingling got worse. Patient repports symptoms worse after coughing 6 weeks ago. Pain located left cervical shoulder tricep to unlar forearm to fingers . Patient had x-rays C5-6 DDD ,melocicam. Patient stmptoms affects sleeping. C/O BE ,denies tinnnutus/nausea. 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 Patient pain affects job demands ,ADLS' and housework . Patient symptoms affects QOL. SOCIAL: 2 childer. VOCATION: [place] - Pain Left Neck Pain Intensity (Out of 10): 2 Pain Intensity Range: 10 Left Shoulder Pain Intensity (Out of 10): 2 Pain Intensity Range: 10 - Objective POSTURE: mild foward posture. NEURO: C/O parathesia/tingling left arm,reflexes C5-6-7 2/3. PALPATION: unnremarkable. AROM: BUE WFL pain ER left shoulder. MMT: grossly 4/5. PARTS ROOM ASSISTANT STRENGTH: 70#. CERVICAL ROM: flexion min loss,extension mod loss pain ,retraction min/mod loss pain ,protrusion min loss,rotation min/mod loss ,lateral flexion mod loss pain - Special Tests C/S Radiculapathy - Left Upper limb tension test: Positive C/S Radiculapathy - Right Upper limb tension test: Negative C/S Radiculapathy - Left Spurlings: Positive C/S Radiculapathy - Right Spurlings: Negative C/S Radiculapathy - Left Cervical distraction: Negative C/S Radiculapathy - Right Cervical distraction: Negative Sharp Herman: Negative Vertebral Artery Test: Negative Alar Ligament Test: Negative Cervical Sitting: Protrusion - Mechanical Response: No effect Cervical Sitting: Protrusion - Symptoms During Testing: Increases Cervical Sitting: Protrusion - Symptoms After Testing: Worse Comments:: arm Cervical Sitting: Retraction - Mechanical Response: No effect Cervical Sitting: Retraction - Symptoms During Testing: Increases Cervical Sitting: Retraction - Symptoms After Testing: Worse Comments:: arm Cervical Sitting: Retraction-Extension - Mechanical Response: No effect Cerv Sitting: Retraction-Extension - Symptoms During Testing: Increases Cerv Sitting: Retraction-Extension - Symptoms After Testing: Worse Comments:: arm Cervical Sitting: Sidebend Right - Symptoms During Testing: No effect Cervical Sitting: Sidebend Right - Symptoms After Testing: No effect Cervical Sitting: Sidebend Left - Mechanical Response: No effect Cervical Sitting: Sidebend Left - Symptoms During Testing: Increases Cervical Sitting: Sidebend Left - Symptoms After Testing: Worse Cervical Sitting: Rotation Right - Mechanical Response: No effect Cervical Sitting: Rotation Right - Symptoms During Testing: No effect Cervical Sitting: Rotation Right - Symptoms After Testing: No effect Cervical Sitting: Rotation Left - Mechanical Response: No effect Cervical Sitting: Rotation Left - Symptoms During Testing: Increases Cervical Sitting: Rotation Left - Symptoms After Testing: Worse Cervical Sitting: Flexion - Mechanical Response: No effect Cervical Sitting: Flexion - Symptoms During Testing: Increases Cervical Sitting: Flexion - Symptoms After Testing: Worse Comments:: arm - Goals Goal 1:: Independant with HEP Goal Time Frame: 2-4 Weeks Goal 2:: Patient to improve posture for ADLS. Goal Time Frame: 2-4 Weeks Goal 3:: Patient to decrease cervical radiculopathy by 50% or > to improve function Goal Time Frame: 4-6 Weeks Goal 4:: Patient improve cervical ROM for function of recovery. Goal Time Frame: 4-6 Weeks Goal 5:: Improve neck owestry score by 5 points or> to improve QOL. - Rehabilitation Potential Physical Therapy Diagnosis: Patient has cervical radiculopathy with + signs of possible derranagement with disc involvement with symptoms raditaing to hand/finger pain with motion and no postion or test movement to decrease symptoms thus bemifit from PT. May need MRI if symptoms dont get better. Rehabilitation Potential: Good - Anticipated Interventions Patient/Client Instruction: Educate patient on: Condition, Plan of Care For the Purpose of:: To decrease pain, To increase ROM, To improve muscle performance and motor function, To improve ability to perform ADL's, To increase tolerance to activity/condition/position , To improve ability of physical actions for home/community/work/leisure , To improve health of tissue, To decrease soft tissue restriction, To increase flexibility/ROM, To reduce risk of recurrence, To improve ability to perform tasks related to life management Therapeutic Exercise to Include: Strength training, Postural training, Flexibilty training, Active ROM, Cuco Exercises For the Purpose of:: To decrease pain, To increase ROM, To improve muscle performance and motor function, To improve ability to perform ADL's, To increase tolerance to activity/condition/position , To improve ability of physical actions for home/community/work/leisure , To improve health of tissue, To decrease soft tissue restriction, To increase flexibility/ROM Manual Therapy Techniques to Include: Mobilization Comment: CERVICAL TRACTION For the Purpose of:: To decrease pain, To increase ROM, To improve ability to perform ADL's, To improve health of tissue, To decrease soft tissue restriction TENS: Yes IF ES: Yes Cryotherapy (ice pack, ice massage): Yes Thermo therapy (hot pack): Yes Ultrasound (thermal/non thermal): Yes Intermittent cervical traction: Yes For the Purpose of:: To decrease pain, To increase ROM, To improve nutrient delivery to tissue, To increase oxygenation perfusion, To improve health of tissue, To decrease soft tissue restriction, To increase flexibility/ROM Thank you for the opportunity to evaluate your patient. For Medicare and Medicare HMO plans, please review the plan of care and approve it. It will need to be FAXED BACK to us at [phone] for Medicare purposes. For Medicare only, by signing this I certify the plan of care. Please let me know if there are questions or concerns regarding this plan of care. Physician Signature: Date: <Electronically signed by Nyla Haywood PT, Cert. JAY, [facility]> 03/23/19 0815 CC: [employer] F[employer]Gatito Galan [place] Signed Darlene Galan Start: 03-06-2019 End: 03-07-2019 Cerv Spine 2 or 3 Views Comments: See Note; NOTES: [facility] Imaging Services [address] [place] [address] Cerv Spine 2 or 3 Views MR#: [id number] Acct: [id number] Name: CLARITZA MARTIN Rep #: [id number] : 1980 F 38 From: Gladis Tyler MD PCP: Care Physician, No Primary Status: REG CLI Study: Cerv Spine 2 or 3 Views Date of Exam: 03/06/19 Exam# [id number] Ordering Dr: Darlene Galan [employer] HISTORY: NECK AND LEFT SHOULDER PAIN TECHNIQUE: Cervical spine 3 views Number of images including paperwork: 3 COMPARISON: None FINDINGS: VERTEBRAE: No acute fracture. VERTEBRAL ALIGNMENT: No traumatic subluxation. DISKS AND JOINTS: Mild to moderate disc space narrowing at C5-6. SOFT TISSUES: Unremarkable paraspinous soft tissues. RAD/Cerv Spine 2 or 3 Views IMPRESSION: 1. No acute osseous abnormality. 2. Mild to moderate discogenic degenerative changes at C5-6. at 0656 Reported and signed by: Gladis Tyler MD Electronically Signed: Gladis Tyler MD at 6:56 EST Tel , Service support , CC: [employer] Darlene Galan; No Primary Care Physician Template Worker: Signed Darlene Galan Work Phone: 3 eye surgeries Victorino Garcia 3 eye surgeries Victorino Garcia LPN 3 eye surgeries Mallory Deena [facility] 3 eye surgeries Victorino Garcia LPN 3 eye surgeries RYDER serrato PATIENT FINANCIAL SPECIALIST D&C Victorino Garcia Comment on above: For MC in 2008 D&C Victorino Garcia LP N Comment on above: For MC in 2008 D&C Mallory Gravius WATER METER INSTALLER Comment on above: For MC in 2008 D&C Victorino Garcia LP N Comment on above: For MC in 2008 D&C RYDER Chilel LPN Comment on above: For MC in 2008 Gallbladder Surgery Victorino marshall Comment on above: No post-op complications. about 4 or 5 y ears ago H/O: hysterectomy Hx of hysterectomy [employer] Darlene Galan [employer] Work Phone: Comment on above: 2011 H/O: surgery Hx of dilation a nd curettage [employer] Darlene Galan [employer] Work Phone: Comment on above: 2008 H/O: surgery History of neck surgery Corbin Weaver MD Work Phone: H/O: surgery H/O neck surgery Giuseppe james [employer] Work Phone: Comment on above: 04/2019 C5 & C6 disc replacement & 03/2023 C6 and C7 fusion. Surgeries had been performed at [facility]. H/O: surgery H/O neck surgery Dr. Narayan Connelly MD History of cholecystectomy S/P cholecystectomy Victorino Garcia PATIENT FINANCIAL SPECIALIST History of cholecystectomy S/P cholecystectomy Victorino Garcia PATIENT FINANCIAL SPECIALIST History of cholecystectomy S/P cholecystectomy Mallory Gravsera WATER METER INSTALLER History of cholecystectomy S/P cholecystectomy Victorino Garcia LPN History of cholecystectomy Hx of cholecystectomy [employer] Darlene Galan [employer] Work Phone: Comment on above: 2012 History of cholecystectomy S/P cholecystectomy RYDER Chilel LPN History of cholecystectomy S/P cholecystectomy Darlene Galan History of tonsillectomy Hx of tonsillect senia [employer] Darlene Galan [employer] Work Phone: Comment on above: 1987 Hysterectomy Victorino Garcia Comment on above: No post-op complications. 8 years ago Hysterectomy Victorino Garcia LP N Comment on above: No post-op complications. 8 years ago Hysterectomy Mallory Gravsera WATER METER INSTALLER Comment on above: No post-op complications. 8 years ago Hysterectomy Victorino Garcia LP N Comment on above: No post-op complications. 8 years ago Hysterectomy RYDER Chilel LPN Comment on above: No post-op complications. 8 years ago Operation on gallbladder Arcadio Garcia Comment on above: No post-op complications. about 4 or 5 y ears ago Operation on gallbladder Arcadio Garcia PATIENT FINANCIAL SPECIALIST Comment on above: No post-op complications. about 4 or 5 y ears ago Operation on gallbladder Zach min Preeti WATER METER INSTALLER Comment on above: No post-op complications. about 4 or 5 y ears ago Operation on gallbladder Arcadio Garcia LPN Comment on above: No post-op complications. about 4 or 5 y ears ago Operation on gallbladder CASSANDRA Chilel LPN Comment on above: No post-op complications. about 4 or 5 y ears ago Tonsillectomy Victorino Garcia Tonsillectomy Victorino Garcia L PN Tonsillectomy Mallory Álvarez WATER METER INSTALLER Tonsillectomy Victorino Garcia L PN Tonsillectomy RYDER Chilel LPN Plan of Treatment Date Care Activity Detail Author Start: 07-11-2024 Evaluation of diagno stic study results [facility] Start: 06-22-[address] [facility] Work Phone: Start: 06-08-2024 End: 06-08-2024 Patient encounter procedure 06/08/2024 1:30 PM EDT Office Visit Neurology [address] [place] [address] Angel Orellana MD [address] [place] [address] Follow up after mri Neurology Comment on above: Follow up after mri Start: 06-05-2024 End: 06-05-2024 Patient encounter procedure 06/05/2024 9:45 AM EDT OT/PT/Speech Visit [facility] [address] [place], [place] [id number] OCoretta Morales, PT CONSULT TO PHYSICAL THERAPY [facility] Comment on above: CONSULT TO PHYSICAL THERAPY Start: 06-01-2024 Patient referral [facility] Work Phone: Start: 05-25-2024 End: 05-25-2024 Patient encounter procedure 05/25/2024 9:00 AM EDT Appointment Radiology [address] [place], [place] [id number] MRI THORACIC SPINE WO/W IVCON Radiology Comment on above: MRI THORACIC SPINE W O/W IVCON Start: 10-16-2023 Covid-19 Vaccine ( season) Covid-19 Vaccine ( season) [facility] Start: 10-16-2023 Covid-19 Vaccine ( season) Covid-19 Vaccine ( season) [facility] Start: 10-16-2023 Influenza vaccination C [facility] Start: 08-04-2023 End: 08-04-2023 Patient encounter procedure 08/04/2023 1:40 PM EDT Office Visit Orthopedics [address] [place] [address] Laney Carroll PA-C [address] [facility] [place] [address] Acute pain of left shoulder Orthopedics Comment on above: Acute pain of left s houlder Start: 07-13-2023 End: 07-13-2023 Admission to same day surgery center 07/13/2023 3:00 PM EDT OT/PT/Speech Visit [facility] [address] [place] [address] Coretta Moore, PT Strengthen neck after surgery [facility] Comment on above: Strengthen neck afte r surgery Start: 07-08-2023 End: 07-08-2023 Admission to same day surgery center 07/08/2023 2:00 PM EDT OT/PT/Speech Visit [facility] [address] [place] [address] Coretta Moore, PT Strengthen neck after surgery [facility] Comment on above: Strengthen neck afte r surgery Start: 07-04-2023 End: 07-04-2023 Admission to same day surgery center 07/04/2023 3:30 PM EDT OT/PT/Speech Visit [facility] [address] [place] [address] June Hills, DISPLAY CARVER [address] [place] [address] Strengthen neck after surgery [facility] Comment on above: Strengthen neck afte r surgery Start: 07-01-2023 End: 07-01-2023 Admission to same day surgery center 07/01/2023 11:45 AM EDT OT/PT/Speech Visit [facility] [address] [place] [address] June Hills, DISPLAY CARVER [address] [place] [address] Strengthen neck after surgery [facility] Comment on above: Strengthen neck afte r surgery Start: 06-27-2023 End: 06-27-2023 Admission to same day surgery center 06/27/2023 1:15 PM EDT OT/PT/Speech Visit [facility] [address] [place] [address] O'Coretta Abdul, PT Strengthen neck after surgery [facility] Comment on above: Strengthen neck afte r surgery Start: 06-24-2023 End: 06-24-2023 Admission to same day surgery center 06/24/2023 2:45 PM EDT OT/PT/Speech Visit [facility] [address] [place] [address] June Hills, DISPLAY CARVER [address] [place] [address] Strengthen neck after surgery [facility] Comment on above: Strengthen neck afte r surgery Start: 06-20-2023 End: 06-20-2023 Admission to same day surgery center 06/20/2023 3:30 PM EDT OT/PT/Speech Visit [facility] [address] [place] [address] June Hills, DISPLAY CARVER [address] [place] [address] Strengthen neck after surgery [facility] Comment on above: Strengthen neck afte r surgery Start: 06-14-2023 End: 06-14-2023 Admission to same day surgery center 06/14/2023 4:30 PM EDT OT/PT/Speech Visit [facility] [address] [place] [address] Coretta Moore, PT Strengthen neck after surgery [facility] Comment on above: Strengthen neck afte r surgery Start: 06-07-2023 End: 06-07-2023 Admission to same day surgery center 06/07/2023 3:45 PM EDT OT/PT/Speech Visit [facility] [address] [place] [address] Coretta Moore, PT Strengthen neck after surgery [facility] Comment on above: Strengthen neck afte r surgery Start: 12-17-2022 Procedure Education Eprescribe d prescriptions (G8553) [facility] Work Phone: Start: 12-17-2022 Provider Instruction s for Treatment [facility] Work Phone: Start: 12-17-2022 Urinalysis qual/semiquant except immunoassays URINALYSIS (97871) [facility] Work Phone: Start: 12-17-2022 Lipid panel LIPID PANEL (90027) [facility] Work Phone: Start: 12-17-2022 Assay of thyroid stimulating hormone tsh TSH (THYROID STIMULATING HORMONE) (69277) [facility]; [facility] Work Phone: Start: 12-17-2022 Comprehensive metabo lic panel METABOLIC PANEL, COMPREHENSIVE (06263) [facility]; [facility] Work Phone: Start: 12-17-2022 Blood count complete auto&auto difrntl wbc CBC, PLATELETS & AUT DIFF (88734) [facility]; [facility] Work Phone: Start: 10-15-2022 Covid-19 Vaccine ( season) Covid-19 Vaccine ( season) [facility] Start: 10-15-2022 Influenza vaccination Influenza Vacc ine (#1) [facility] Start: 10-15-2021 Influenza vaccination INFLUENZA (#1) [facility] Start: 06-19-2021 Patient referral [facility] Work Phone: Start: 04-21-2021 COVID-19 VACCINE (3 - Booster for Pfizer series) COVID-19 VACCINE (3 - Booster for Pfizer series) [facility] Start: 03-20-2021 Procedure Education Eprescribe d prescriptions (G8553) [facility]; [facility] Work Phone: Start: 03-20-2021 Provider Instruction s for Treatment Follow up in 4 months welt sole layer to make follow up [facility] Work Phone: Start: 03-06-2021 Procedure Education Eprescribe d prescriptions (G8553) [facility] Work Phone: Start: 03-06-2021 Provider Instruction s for Treatment Follow up in 2 weeks virtual [facility] Work Phone: Start: 02-20-2021 Procedure Education Eprescribe d prescriptions (G8553) [facility] Work Phone: Start: 02-20-2021 Provider Instruction s for Treatment 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 [facility] Work Phone: Start: 02-20-2021 Rheumatoid factor quantitative RHEUMATOID FACTOR-QUANT (32030) test code [id number] [facility] Work Phone: Comment on above: Feb 23 2021 Start: 02-20-2021 Extractable nuclear antigen antibody any method [facility] Work Phone: Comment on above: Feb 23 2021 Feb 232021Feb 23, 2021 Start: 02-20-2021 Cyanocobalamin vitam in b-12 VITAMIN B12 AND FOLATES ([id number]) [facility]; [facility] Work Phone: Comment on above: Feb 23 2021 Start: 02-20-2021 25 hydroxy includes fractions if performed CALCIFEDIOL ([id number]) [facility] Work Phone: Comment on above: Feb 23 2021 Start: 02-20-2021 Assay of thyroid stimulating hormone tsh TSH (THYROID STIMULATING HORMONE) ([id number]) [facility]; [facility] Work Phone: Comment on above: Feb 23 2021 Start: 02-20-2021 Blood count complete auto&auto difrntl wbc CBC, Platelets & Auto Diff (95417) [facility]; [facility] Work Phone: Comment on above: Feb 232021 Start: 02-20-2021 Comprehensive metabo lic panel Metabolic Panel, Comprehensive ([id number]) [facility]; [facility] Work Phone: Comment on above: Feb 23 2021 Start: 01-16-2021 COVID-19 VACCINE (3 - Booster for Pfizer series) COVID-19 VACCINE (3 - Booster for Pfizer series) [facility] Start: 2020 Mammography [facility] Start: 2020 Screening for malign ant neoplasm of breast Mammogram Screening [facility] Start: 05-02-2019 Procedure Education Eprescribe d prescriptions (G8553) [facility] Work Phone: Start: 05-02-2019 Provider Instruction s for Treatment [facility] Work Phone: Start: 04-10-2019 Procedure Education Eprescribe d prescriptions (G8553) [facility] Work Phone: Start: 04-10-2019 Provider Instruction s for Treatment Follow up in 2 weeks [facility] Work Phone: Start: 03-20-2019 Procedure Education Eprescribe d prescriptions (G8553) [facility] Work Phone: Start: 03-20-2019 Provider Instruction s for Treatment [facility] Work Phone: Start: 03-06-2019 Patient Education Celiac Disea se and the Gluten-Free Diet: diet [facility] Work Phone: Start: 03-06-2019 Procedure Education Eprescribe d prescriptions (G8553) [facility] Work Phone: Start: 03-06-2019 Provider Instruction s for Treatment Follow up in 2 weeks [facility] Work Phone: Start: 03-06-2019 Iaad ia hpylori stool HELICO P YLORI, STOOL, INFCT ANTIGEN ([id number]) [facility] Work Phone: Start: 03-06-2019 Iaad ia clostridium difficile toxin Clostridium difficile Toxin A+B, EIA (55656) [facility] Work Phone: Start: 12-04-1999 Hepatitis B Vaccine (1 of 3 - 19+ 3-dose series) Hepatitis B Vaccine (1 of 3 - 19+ 3-dose series) [facility] Start: 12-04-1999 Urine microalbumin profile [facility] Start: 1998 HEPATITIS C SCREENING HEPATITIS C [facility] Start: 1998 Hepatitis C screening Hepatitis C [facility] Start: 1998 HIV SCREENING HIV SCREENING [facility] Start: 1998 HIV screening HIV Screening [facility] Start: 1980 HEPATITIS B (1 of 3 - 3-dose series) HEPATITIS B (1 of 3 - 3-dose series) [facility] Start: 1980 Hepatitis B Vaccine (1 of 3 - 3-dose series) Hepatitis B Vaccine (1 of 3 - 3-dose series) [facility] End: 03-11-2024 ECG COMPLETE ECG COMPLETE ECG Routine Pre-operative examination 1 Occurrences starting 03/11/2023 until 03/11/2024 [facility] Work Phone: Comment on above: 1 Occurrences starti ng 03/11/2023 until 03/11/2024 MG Breast - bilatera l Screening [facility] End: 06-10-2025 MR Thoracic spine WO and W contrast IV MRI THORACIC SPINE WO/W IVCON Radiology Routine Demyelinating disease of central nervous system (HCC) 1 Occurrences starting 05/11/2024 until 06/10/2025 [facility] Work Phone: Comment on above: 1 Occurrences starti ng 05/11/2024 until 06/10/2025 Patient referral [facility] Work Phone: End: 10-28-2022 Us lmtd joint/oth nonvasc xtr strux r-t w/img US ELBOW LEFT Radiology Routine Ulnar neuropathy at elbow of left upper extremity 1 Occurrences starting 09/28/2021 until 10/28/2022 [facility] Work Phone: Comment on above: 1 Occurrences starti ng 09/28/2021 until 10/28/2022 XR CERV OTHER 4V AP/LAT/FLX/EXT XR CERV OTHER 4V AP/LAT/FLX/EXT Radiology Routine Acute cervical radiculopathy S/P cervical spinal fusion 06/17/2023 4:33 PM EDT [facility] Work Phone: End: 06-18-2024 XR Cervical spine AP and Lateral XR CERV GENERAL 2V AP/LAT Radiology Routine S/P cervical spinal fusion 1 Occurrences starting 05/20/2023 until 06/18/2024 [facility] Work Phone: Comment on above: 1 Occurrences starti ng 05/20/2023 until 06/18/2024 [facility] Work Phone: [facility] Work Phone: [facility] Work Phone: [facility] Work Phone: [facility] Work Phone: [facility] Work Phone: [facility] Payers Date Payer Category Payer Self-pay [id number] 2024 Unknown [id number] 2022 Private Health Insurance [id number] 2022 Private Health Insurance [id number] 2017 Unknown 2017 Unknown [id number] 2014 Unknown [id number] Unknown [id number] 2.16.8 [id number] Unknown [id number] 2.16.8 [id number] Unknown [id number] 2.16.8 [id number] Unknown [id number] 2.16.8 [id number] Unknown [id number] 2.16.8 [id number] Unknown [id number] 2.16.8 [id number] Unknown [id number] 2.16.8 [id number] Unknown [id number] 2.16.8 [id number] Unknown [id number] 2.16.8 [id number] Unknown [id number] 2.16.8 [id number] Unknown [id number] 2.16.8 [id number] Social History Date Type Detail Facility Alcohol Use: Alcohol Use: [facility] Work Phone: Start: 11-18-2021 End: 01-13-2023 Caffeine Use Caffeine Use [facility] Work Phone: Comment on above: 1 cup coffee and one can of pop a day Drug Use: Drug Use: [facility] Work Phone: Tobacco Use: Tobacco Use: [facility] Work Phone: Alcohol Use: Alcohol Use: [facility] Work Phone: Drug Use: Drug Use: [facility] Work Phone: Tobacco Use: Tobacco Use: [facility] Work Phone: Start: 06-19-2021 End: 07-31-2021 Tobacco smoking status GAIS Unknown if ever smoked [facility] Start: 1980 Sex Assigned At Female [facility] Start: 09-14-2007 End: 07-17-2024 Tobacco smoking status NHIS Ex-smoker [facility] Work Phone: Start: 07-15-2003 End: 02-14-2017 History of tobacco use Current smoker [facility] Work Phone: Start: 07-15-2003 End: 02-14-2017 History of tobacco use Cigarette Smoker [facility] Work Phone: Start: 09-14-2007 End: 11-18-2021 Tobacco use and exposure Smokeless tobacco non-user [facility] Work Phone: Start: 03-23-2021 End: 05-11-2024 Alcohol intake Current drinker of alcohol (finding) [facility] Start: 03-22-2008 History SDOH Alcohol Comment rare,NOT WHILE [facility] Start: 09-14-2007 Tobacco Comment Smoked occassi onally for 3 yrs [facility] Start: 1980 Sex Assigned At Not on file [facility] Start: 09-08-2021 End: 01-04-2022 Exposure to SARS-CoV-2 (event) Not sure [facility] Work Phone: Start: 11-16-2021 Tobacco Comment Smoked occassi onally for 3 yrs. [facility] Start: 11-18-2021 History SDOH Alcohol Comment 1/month [facility] Start: 11-18-2021 Tobacco Comment Smoked occassi onally for 5 yrs. [facility] Start: 01-13-2023 End: 03-29-2023 Tobacco use panel [facility] Adult Depression Screening Assessment 0 [facility] Has the electric, gas, oil, or water company threatened to shut off services in your home in past 12Mo No [facility] Work Phone: (I/We) worried whether (my/our) food would run out before (I/we) got money to buy more. Never true [facility] Work Phone: Start: 03-31-2025 Sex Female (finding) [facility] Medical Equipment Procedure Code Equipment Code Equipment Origin al Text Equipment Identifier Dates Spacer Avs 4d 7m m Spinal Bone Plug - [id number] Start: 03-28-2023 Lynn Cervical P late 1 Level 20mm [id number] Start: 03-28-2023 Screw Bn 4mm 14m m Lynn Spnl - [id number] Start: 03-28-2023 Functional Status Date Assessment Result Facility 07-10-2014 Are you deaf, or do you have serious difficulty hearing No 07/10/2014 1:33 PM EDT Mishel Garcia Cma No [facility] 07-10-2014 Are you blind, or do you have serious difficulty seeing, even when wearing glasses No 07/10/2014 1:33 PM EDT Mishel Garcia Cma No [facility] 07-10-2014 Do you have serious difficulty walking or climbing stairs No 07/10/2014 1:33 PM EDT Mishel Garcia Cma No [facility] 07-10-2014 Do you have difficul ty dressing or bathing No 07/10/2014 1:33 PM EDT Mishel Garcia Cma No [facility] 07-10-2014 Because of a physica l, mental, or emotional condition, do you have difficulty doing errands alone such as visiting a physician's office or shopping No 07/10/2014 1:33 PM EDT Mishel Garcia Cma No [facility] Mental Status Date Assessment Result Facility 07-10-2014 Because of a physica l, mental, or emotional condition, do you have serious difficulty concentrating, remembering, or making decisions No 07/10/2014 1:33 PM EDT Mishel Garcia Cma No [facility] Clinical Notes 07-16-2008 to 07-31-2024 Darlene Marie, (R) - 05/25/2024 9:00 AM Angel Alvarez MD - 05/11/2024 10:30 AM EDTTelephone Encounter - Yanely Daniels LPN - 05/10/2024 2:45 PM EDT Note Date & Type Note Facility 07-31-2024 Note [facility] Medical Records Department [address] [place] [address] History Physical Exam 07/31/24 1106 MR#: [id number] Acct: [id number] Name: CLARITZA MARTIN Rep #: [id number] : 1980 43 From: Dg Díaz MD PCP: Dr. Jesusita Jang MD Status:[facility] Location: [place] [address] History and Physical Date of Admission: 07/31/24 MR#: [id number] Acct: [id number] Name: CLARITZA MARTIN Rep #: [id number] : 1980 Provider: Dr. Dg Díaz MD Age/Sex: 43/F Location: [facility] Status: Signed Intake Vital Signs 06/22/2508:28 07/11/2510:53 Height 5 ft 2.5 in 5 ft 2 in Intake Visit Reasons: cervical spine Chief Complaint: Pre-Op Cervical Spine Accompanied by: Is patient in pain?: Yes Pain scale (1-10): 4 Allergies cortisone Allergy (Intermediate, Verified 07/27/24 13:38) Rash Medications ???Medication ???Instructions ???Recorded ???Confirmed ???Type acetaminophen 325 mg tablet 325 mg PO ONCE PRN pain 05/18/24 07/27/24 History (Tylenol) PFSH Medical History Wears glasses Alcohol use Restless legs Multiple sclerosis Former smoker History of pain when walking Encounter to establish care Preventative health care Neuropathy Lump of right breast Surgical History History of elbow surgery H/O neck surgery Hx of right breast biopsy Hx of dilation and curettage Hx of tonsillectomy Hx of eye surgery Hx of hysterectomy Hx of cholecystectomy Family History Father Diabetes HypertensionBrother DiabetesAunt Breast cancerMother Osteoarthritis Social History household members: spouse and children current occupational status: employed 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 pets and animals: Yes pets and animals: cat(s), dog(s) and fish Smoking Status: Former smoker second hand exposure: No alcohol intake: current alcohol intake frequency: holidays/special occasions only details: On avg 1 drink once or twice a month substance use type: does not use caffeine: Yes Type: coffee Number of servings: 1 and other Number of servings: 1 what type of physical activity do you participate in: none frequency: does not exercise seatbelt use: always do you feel safe at home: Yes HPI cervical spine Details: This documentation accurately reflects the service provided and the decisions made by me, Dr. Dg Díaz MD 07/27/24 [id number]. Part of today???s visit was documented by Shreya Salinas ATC, acting as scribe. CLARITZA MARTIN is a 43 year old F here today for pre-op cervical disc replacement C4-5, possible removal of hardware DOS 07/31/2024. Patient rates her pain a 4/10 today. She states she has stopped taking Advil but continues to take the Tylenol. 06/22/24: CLARITZA MARTIN is a 43 year old F here today for cervical spine pain. She complains of cervical spine pain that extends down in to her left shoulder. This has been going on for 15 months.She describes the pain as a sharp achy pain and at times she feels a shock like sensation.She has been experiencing numbness and tingling in both arms and both legs. She complains of numbness in her face and bilateral hands. She does experience muscle spasms in her hands. She does report recent issues with her balance, she feels off balance and has to catch herself so that she does not fall. She has tried oral steroids which were not helpful. She had a reaction to the injections in [address] Collins therefore she is not able to have anymore. She cannot use her left hand to bowl or play basketball. She does have proximal weakness in her arm/shoulder. She cannot carry anything that is heavy because it increases the pain. She drops items with her hands such as her keys. She reports two previous surgeries. The first was in April 2019 for a cervical disc replacement at C5-C6, the second surgery was a fusion at C6-C7 in March 2023. She has been in pain since this surgery. She did not have any issues swallowing after her surgeries.She denies diabetes or heart issues. She denies history of strokes. She does have nodules on her thyroid that are checked periodically with imaging. She had a brain scan recently that showed lesions consistent with MS. She has an appointment in July at [facility] with a neurologist for further evaluation. Ortho Exam General General: Yes no acute distress Neurologic: Yes alert Psychologic: Yes reasonable and appropriate Spine SPINE TESTING CERVICAL THORACIC LUMBAR Musculoskeletal Strength 0=abse (more content not included)... [facility] 05-25-2024 History of Presen t illness Narrative Radiology Service Progress Note DATE OF SERVICE: May 25, 2024 TIME: 8:56 AM PATIENT IDENTITY VERIFICATION COMPLETED USING TWO (2) STANDARD IDENTIFIERS: Name and Date of confirmed by patient verbally. FALL SCREENING: Has the patient had 2 falls in the last year or 1 fall with injury or currently using an Ambulatory Assistive Device (Walker, Cane, Wheelchair, Crutches, etc.)? No PATIENT GENDER DATA: Assigned female at . status: : No status: NO. PATIENT RELEVANT IMPLANT DATA REVIEWED: Yes PATIENT PRESENTS WITH AN IMPLANTABLE OR ATTACHED MOTOR ADJUSTER: No ALLERGIES: Reviewed and unchanged CONTRAST ALLERGY: NO. EXAM: MRI - CONTRAST TYPE: GROUP II PERIPHERAL IV DATA: Ambulatory: A peripheral IV was started in the Left antecubital site with a Angio cath: 22 gauge. RADIOLOGY DEPARTMENT: MR; Exam(s) Completed: Spine: Thoracic spine SIGNATURE: RT Klever(Rita) PATIENT NAME: Claritza Martin DATE: May 25, 2024 TIME: 8:56 AM documented in this encounter [facility] 05-25-2024 Note HNO ID: [id number] Author: DARLENE MARIE RT(R) Service: ? Author Type: Technologist Type: Progress Notes Filed: 05/25/2024 08:58 Note Text: Radiology Service Progress Note DATE OF SERVICE: May 25, 2024 TIME: 8:56 AM PATIENT IDENTITY VERIFICATION COMPLETED USING TWO (2) STANDARD IDENTIFIERS: Name and Date of confirmed by patient verbally. FALL SCREENING: Has the patient had 2 falls in the last year or 1 fall with injury or currently using an Ambulatory Assistive Device (Walker, Cane, Wheelchair, Crutches, etc.)? No PATIENT GENDER DATA: Assigned female at . status: : No status: NO. PATIENT RELEVANT IMPLANT DATA REVIEWED: Yes PATIENT PRESENTS WITH AN IMPLANTABLE OR ATTACHED MOTOR ADJUSTER: No ALLERGIES: Reviewed and unchanged CONTRAST ALLERGY: NO. EXAM: MRI - CONTRAST TYPE: GROUP II PERIPHERAL IV DATA: Ambulatory: A peripheral IV was started in the Left antecubital site with a Angio cath: 22 gauge. RADIOLOGY DEPARTMENT: MR; Exam(s) Completed: Spine: Thoracic spine SIGNATURE: Darlene Marie, RT(R) PATIENT NAME: Claritza Martin DATE: May 25, 2024 TIME: 8:56 AM [facility] 05-11-2024 History of Presen t illness Narrative Images from the original note were not included. [facility] VIRTUAL VISIT FOR NEW PATIENT EVALUATION Referral source: SELF Also followed by: Giuseppe Ang [id number] [address] I have communicated my name and active licensure. The patient's identity and physical location [[place]] were verified at the time of this visit. Either the patient or their legal fuels sales representative has been informed of the risks and benefits of -- and alternatives to -- treatment through a remote evaluation and consents to proceed with the evaluation remotely. PRINCIPAL NEUROLOGIC DIAGNOSIS: Abnormal MRI brain DISEASE SUMMARY Date of onset: ~2018 Date of diagnosis of MS: None Disease course at onset: Progressive without relapses Current disease course: Progressive without relapses Previous disease therapies: None Current disease therapy: None Most recent MRI brain: 05/07/2024 Most recent MRI cervical spine: 05/07/2024 (stable vs. 07/04/2023) Most recent MRI thoracic spine: 10/08/2014 CSF: None JCV serology result and date: None HISTORY OF ILLNESS: An opinion on this 43 year old left handed female was requested by the patient for a second opinion on abnormal brain MRI. The patient was not accompanied by anyone. Previous records (physician notes, laboratory reports, and radiology reports) and imaging studies were reviewed and summarized. My recommendations will be communicated back to the patient's physician(s) via electronic medical record. Follow-up is expected to be with the patient's primary care physician. History is taken via the virtual visit platform. She reports chronic history of fatigue since her 30s. She reports 15 years ago she had numbness in the entire left side of the body and was told symptoms were related to migraine which eventually resolved. She reports chronic anisocoria (L>R) since that episode. Around 2018 she started experiencing numbness in the arm. Patient underwent cervical spine surgery C5/6 in 2019 for left cervical radiculopathy symptoms but post-operatively had recurrent LUE pain and paresthesia and was diagnosed with ulnar neuropathy. She had ulnar nerve surgery in November 2021 without relief. MRI cervical spine showed new C6/7 disc protrusion and cord compression for which she underwent C6-7 ACDF 03/28/2023 but has continued to remain symptomatic. She reports prior to surgery she was also having left foot numbness and over the past 1.5 year she has also had sensory symptoms in the RUE and RLE. She has also noted numbness in bilateral face. The symptoms migrate from various body parts lasting from couple of days to weeks. She denies any other focal neurological deficits suggestive of demyelinating disease. She is ex-smoker (quit March 2023). She reports occasional alcohol use over the weekends. 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 She has had history of hysterectomy for abnormal bleeding. Current Symptoms: Numbness, pain, and tingling in extremities and face; reported allodynia and cold sensation: she has gabapentin in the past associated with side effects Gradual generalized weakness, over the last year Intermittent imbalance and dizziness, over the last year, worse with orthostatic changes Headaches, for the past 5-10 years, reportedly over the forehead and behind the eyes, takes Advil and ice-pack for the headaches, lasting about half a day, occurring about 3 times per week, rated as 3-4 in severity, denies photophobia or phonophobia, improved with rest Neuro-Qol Functions (higher = better functioning) 05/10/2024 -- Upper Extremity Domain T Score 42 Patient-reported 05/10/2024 -- Lower Extremity Domain T Score 44 Patient-reported 05/10/2024 -- Cognitive Function Domain T Score 51 Patient-reported 05/10/2024 -- Ability To Participate In Social Roles T Score 43 Patient-reported 05/10/2024 -- Satisfaction With Social Roles T Score 44 Patient-reported Neuro-Qol Symptoms (higher = worse symptoms) 05/10/2024 -- Sleep Domain T Score 60 Patient-reported 05/10/2024 -- Fatigue Domain T Score 58 Patient-reported 05/10/2024 -- Anxiety Domain T Score 48 Patient-reported 05/10/2024 -- Depression Domain T Score 39 Patient-reported 05/10/2024 -- Stigma Domain T Score 54 Patient-reported *NeuroQoL is a multi-domain patient-reported quality of life questionnaire. PAST HISTORY: PAST MEDICAL HISTORY Diagnosis Date Allergic rhinitis, cause unspecified Generalized anxiety disorder Major depressive disorder, recurrent episode, unspecified Migraine, unspecified, without mention of intractable migraine without mention of status migrainosus COMPLEX - had loss of vision (since returned but blurry at times) - CVA, MS ruled out - right pupil still often dilated vs. 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 PAST SURGICAL HISTORY Procedure Laterality Date ADENOIDECTOMY PRIMARY <AGE 12 02/14/1986 Adenoidectomy BX BREAST PERC NEED W/GUID 11/24/2012 U/S needle core bx right breast 8 O'clock DILATION & CURETTAGE DX&/THER NONOBSTETRIC 07/15/2006 for miscarriage LAPAROSCOPY SURG CHOLECYSTECTOMY 03/21/2015 Cholecystectomy, lap NEUROPLASTY &/TRANSPOSITION ULNAR NERVE ELBOW Left 11/25/2021 Left ulnar nerve decompression PAST SURGICAL HISTORY OF 04/2020 disc replacement surgery between c5 and c6 STRABISM SURG,PREV EYE SURG,NOT MUSC 1987,1997 eye surgery-left TONSILLECTOMY PRIMARY/SECONDARY <AGE 12 02/14/1986 Tonsillectomy VAGINAL HYSTERECTOMY UTERUS 250 GM/< 02/14/2011 Current Outpatient Medications Medication Sig gabapentin (NEURONTIN) 300 mg capsule Take 1 capsule by mouth daily at bedtime for 30 days. tiZANidine (ZANAFLEX) 4 mg tablet diclofenac (VOLTAREN) 1 % topical gel Apply to affected area four times daily. predniSONE (DELTASONE) 10 mg tablet 50 mg for 3 days, followed by 30 mg for 3 days, followed by 10 mg for 3 days. methocarbamol (ROBAXIN) 750 mg tablet Take 1 tablet by mouth every 6 hours as needed (Muscle spasms / pain). (Patient not taking: Reported on 08/04/2023) acetaminophen (TYLENOL) 325 mg tablet 2 tablets by ORAL/FEEDING TUBE route every 6 hours as needed for pain. benzocaine-menthol (CHLORASEPTIC) 6-10 mg lozenges Use 1 Lozenge as instructed every 2 hours as needed. (Patient not taking: Reported on 08/04/2023) senna-docusate (SENNA-S) 8.6-50 mg per tablet Take 2 tablets by mouth two times a day as needed for constipation. (Patient not taking: Reported on 08/04/2023) MULTIVITAMIN ORAL Take by mouth once daily. No current facility-administered medications for this visit. ALLERGIES Allergen Reactions Cortisone Hives Reaction to injection FAMILY HISTORY Problem Relation Age of Onset Arthritis Mother Diabetes Father Hypertension Father Lipids Father Colon Cancer Maternal Grandmother Diabetes Paternal Grandmother Heart Paternal Grandmother Diabetes Paternal Grandfather Ischemic Heart Disease Paternal Grandfather OR and CVA Breast Cancer Maternal Aunt dx age 40's Colon Cancer Paternal Aunt dx age 30's Cancer Other cousin-uterine cancer other (migraine) Brother Cervical Cancer Other maternal cousin REVIEW OF SYSTEMS: As above. REVIEW OF OUTSIDE RECORDS: As above. REVIEW OF IMAGING STUDIES: I personally reviewed the following images: MRI brain wo 05/07/2024: Mild burden of predominantly subcortical supratentorial WM lesions. Although some lesions have perpendicular appearance towards the ventricles, no clear periventricular, juxtacortical, or infratentorial lesions are identified. MRI cervical spine wo 05/07/2024: Post-operative changes without cord lesion (limited by hardware artifact). Stable compared to 07/04/2023. ASSESSMENT: 43 year old left handed female with relevant PMHx anxiety, tobacco use, and cervical radiculopathy s/p surgeries 2019 and ACDF 2023 presenting for evaluation of abnormal MRI brain. She does not report any typical episodes of demyelinating syndrome (except possible left hemisensory loss ~15 years ago) but has been having ongoing LUE sensory issues since 2019 attributed to cervical spine disease s/p x2 surgeries and more recent onset of progressive neurological symptoms over the past 1 year including migratory sensory/pain, generalized weakness, imbalance, and headaches. Neuroimaging is notable for mild burden of subcortical WM disease but suspicion for MS was raised given perpendicular appearance of some of the lesions to the ventricles. Overall, within the limitations of the virtual visit today, the patient does not meet diagnostic criteria for MS or other demyelinating disorders. Given the overlap of her symptoms with such disorders and some of the equivocal MRI features I would suggest further evaluation as outlined below. PLAN: - MRI thoracic spine w/wo. - In person evaluation with me on the same day. - Physical therapy consult for imbalance and dizziness. - Likely 7T MRI brain in about 6 months. - Consider neuromuscular neurology or headache neurology referral depending on the above. The chart was reviewed for possible participation in the following studies: None I spent a total of 60 minutes on the date of the service which included preparing to see the patient, [id number] patient care, completing clinical documentation, obtaining and/or reviewing separately obtained history, performing a medically appropriate examination, counseling and educating the patient/family/caregiver, and ordering medications, tests, or procedures. I have communicated my name and active licensure. The patient's identity and physical location were verified at the time of this visit. Either the patient or their legal fuels sales representative has been informed of the risks and benefits of -- and alternatives to -- treatment through a remote evaluation and consents to proceed with the evaluation remotely. Angel Orellana MD Staff Neurologist [facility] for Multiple Sclerosis documented in this encounter [facility] 05-11-2024 Note HNO ID: [id number] Author: ANGEL ORELLANA MD Service: ? Author Type: Physician Type: Progress Notes Filed: 05/11/2024 11:08 Note Text: [facility] FOR MULTIPLE SCLEROSIS VIRTUAL VISIT FOR NEW PATIENT EVALUATION Referral source: SELF Also followed by: Giuseppe Ang [id number] [facility] [address] [place] [address] I have communicated my name and active licensure. The patient's identity and physical location [[place]] were verified at the time of this visit. Either the patient or their legal fuels sales representative has been informed of the risks and benefits of -- and alternatives to -- treatment through a remote evaluation and consents to proceed with the evaluation remotely. PRINCIPAL NEUROLOGIC DIAGNOSIS: Abnormal MRI brain DISEASE SUMMARY Date of onset: ~2019 Date of diagnosis of MS: None Disease course at onset: Progressive without relapses Current disease course: Progressive without relapses Previous disease therapies: None Current disease therapy: None Most recent MRI brain: 05/07/2024 Most recent MRI cervical spine: 05/07/2024 (stable vs. 07/04/2023) Most recent MRI thoracic spine: 10/08/2014 CSF: None JCV serology result and date: None HISTORY OF ILLNESS: An opinion on this 43 year old left handed female was requested by the patient for a second opinion on abnormal brain MRI. The patient was not accompanied by anyone. Previous records (physician notes, laboratory reports, and radiology reports) and imaging studies were reviewed and summarized. My recommendations will be communicated back to the patient's physician(s) via electronic medical record. Follow-up is expected to be with the patient's primary care physician. History is taken via the virtual visit platform. She reports chronic history of fatigue since her 30s. She reports 15 years ago she had numbness in the entire left side of the body and was told symptoms were related to migraine which eventually resolved. She reports chronic anisocoria (L>R) since that episode. Around 2018 she started experiencing numbness in the arm. Patient underwent cervical spine surgery C5/6 in 2019 for left cervical radiculopathy symptoms but post-operatively had recurrent LUE pain and paresthesia and was diagnosed with ulnar neuropathy. She had ulnar nerve surgery in November 2021 without relief. MRI cervical spine showed new C6/7 disc protrusion and cord compression for which she underwent C6-7 ACDF 03/28/2023 but has continued to remain symptomatic. She reports prior to surgery she was also having left foot numbness and over the past 1.5 year she has also had sensory symptoms in the RUE and RLE. She has also noted numbness in bilateral face. The symptoms migrate from various body parts lasting from couple of days to weeks. She denies any other focal neurological deficits suggestive of demyelinating disease. She is ex-smoker (quit March 2023). She reports occasional alcohol use over the weekends. 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 She has had history of hysterectomy for abnormal bleeding. Current Symptoms: Numbness, pain, and tingling in extremities and face; reported allodynia and cold sensation: she has gabapentin in the past associated with side effects Gradual generalized weakness, over the last year Intermittent imbalance and dizziness, over the last year, worse with orthostatic changes Headaches, for the past 5-10 years, reportedly over the forehead and behind the eyes, takes Advil and ice-pack for the headaches, lasting about half a day, occurring about 3 times per week, rated as 3-4 in severity, denies photophobia or phonophobia, improved with rest Neuro-Qol Functions (higher = better functioning) 05/10/2024 -- Upper Extremity Domain T Score 42 Patient-reported 05/10/2024 -- Lower Extremity Domain T Score 44 Patient-reported 05/10/2024 -- Cognitive Function Domain T Score 51 Patient-reported 05/10/2024 -- Ability To Participate In Social Roles T Score 43 Patient-reported 05/10/2024 -- Satisfaction With Social Roles T Score 44 Patient-reported Neuro-Qol Symptoms (higher = worse symptoms) 05/10/2024 -- Sleep Domain T Score 60 Patient-reported 05/10/2024 -- Fatigue Domain T Score 58 Patient-reported 05/10/2024 -- Anxiety Domain T Score 48 Patient-reported 05/10/2024 -- Depression Domain T Score 39 Patient-reported 05/10/2024 -- Stigma Domain T Score 54 Patient-reported *NeuroQoL is a multi-domain patient-reported quality of life questionnaire. PAST HISTORY: PAST MEDICAL HISTORY Diagnosis Date Allergic rhinitis, cause unspecified Generalized anxiety disorder Major depressive disorder, recurrent episode, unspecified Migraine, unspecified, without mention of intractable migraine without mention of status migrainosus COMPLEX - had loss of vision (since returned but blurry at times) - CVA, MS ru (more content not included)... [facility] 05-10-2024 Telephone encounter Note MRI images have arrived and are viewable in [facility]. Yanely Daniels LPN [facility] 05-10-2024 Miscellaneous Notes MRI images have arrived and are viewable in Blue. Yanely Daniels LPN Email [facility] film room to expedite MRI imaging process. Yanely Daniels LPN [facility] NEW PATIENT REFERRAL TRIAGE Referral source:self No referring provider defined for this encounter. Referral Reason: for a second opinion on neurological symptoms Care Everywhere Completed Connection: [x]Yes or []No MRI Imaging and reports (over the last 5-10 years most important) from [facility] Location(s) Previous MRI Imaging has been obtained: [facility] Radiology/Film Library contact: [phone] 04/2024 MRI Brain MRI Cervical Date Requested: 05/10/24 Method of Request: Called in Request [x] or Faxed Request [] Yanely Daniels LPN documented in this encounter [facility] 05-10-2024 Telephone encounter Note Email [facility] film room to expedite MRI imaging process. Yanely Daniels LPN [facility] 05-10-2024 Telephone encounter Note [facility] NEW PATIENT REFERRAL TRIAGE Referral source:self No referring provider defined for this encounter. Referral Reason: for a second opinion on neurological symptoms Care Everywhere Completed Connection: [x]Yes or []No MRI Imaging and reports (over the last 5-10 years most important) from [facility] Location(s) Previous MRI Imaging has been obtained: [facility] Radiology/[facility] [facility] [employer] Library contact: [phone] 04/2024 MRI Brain MRI Cervical Date Requested: 05/10/24 Method of Request: Called in Request [x] or Faxed Request [] Yanely Daniels LPN [facility] 04-05-2024 Evaluation note Diagnosis Onset Date Resolution Neurologic disorder acute 2024 3:24pm Cervical spinal stenosis due to adjacent segment disease after fusion procedure chronic April 05 3:24pm [facility] Work Phone: 1(508) 117-885402-20-2025 Evaluation note* Diagnosis Onset Date Resolution Status Admit Date Neurologic disorder acute 2024 3:24pm Cervical spinal stenosis due to adjacent segment disease after fusion procedure chronic April 05, 2024 3:24pm Encounter to establish care acute May 18, 2024 9:18am Neurologic disorder acute May 18, 2024 9:18am [facility] acute May 18, 2024 9:18am Neuropathy suspected May 18 9:18am Cervical spinal stenosis due to adjacent segment disease after fusion procedure chronic May 9:27am Neuropathy suspected June 01 9:27am H/O neck surgery resolved June 012024 9:27am Cervical myelopathy with cervical radiculopathy acute June 22, 2024 9:23am Fusion of spine, cervical region acute June 22, 2024 9: 23am S/P cervical disc replacement acute June 22, 2024 9:23am [facility] Work Phone: 1(967) 118-480502-20-2025 Evaluation note* Diagnosis Onset Date Resolution Status Admit Date Neurologic disorder acute 2024 3:24pm Cervical spinal stenosis due to adjacent segment disease after fusion procedure chronic April 05, 2024 3:24pm Encounter to establish care acute May 18, 2024 9:18am Neurologic disorder acute May 18, 2024 9:18am [facility] acute May 18, 2024 9:18am Neuropathy suspected May 18 9:18am Cervical spinal stenosis due to adjacent segment disease after fusion procedure chronic May 9:27am Neuropathy suspected June 01 9:27am H/O neck surgery resolved June 012024 9:27am Cervical myelopathy with cervical radiculopathy acute June 22, 2024 9:23am Fusion of spine, cervical region acute June 22, 2024 9: 23am S/P cervical disc replacement acute June 22, 2024 9:23am Pre-op exam acute July 11 11:23am [facility] Work Phone: 1(349) 493-510908-06-2024 Telephone encounter Note* Telephone Encounter - Caterina Hernandez RN - 09/20/2023 6:38 PM EDT Neuro SPINE CARE COORDINATION QUICK NOTE Pt is s/p surgery: 06/2019 C5/6 left sided ADR with [facility] 03/28/2023 C6-C7 ACDF with Dr Weaver Last appt with Dr Weaver was 05/20/23 Last appt with LOCAL GOVERNMENT LEGISLATOR was 06/27/23 MRI-C 07/04/23 XR-C 06/17/23 Pt was previously on Gabapentin, did not help and had side effects. Pt continues with PT, ice, tens unit, chiropractor [facility] Work Phone: 1(606) 829-983208-06-2024 Miscellaneous Notes* Telephone Encounter - Caterina Hernandez RN - 09/20/2023 6:38 PM EDT Neuro SPINE CARE COORDINATION QUICK NOTE Pt is s/p surgery: 06/2019 C5/6 left sided ADR with [facility] 03/28/2023 C6-C7 ACDF with Dr Weaver Last appt with Dr Weaver was 05/20/23 Last appt with LOCAL GOVERNMENT LEGISLATOR was 06/27/23 MRI-C 07/04/23 XR-C 06/17/23 Pt was previously on Gabapentin, did not help and had side effects. Pt continues with PT, ice, tens unit, chiropractor [facility]* Addendum Note - Parker Downing PA-C - 08/05/2023 5:15 PM EDTAddended by: PARKER DOWNING on: 08/05/2023 05:15 PM Modules accepted: Orders [facility]06-21-2024 Miscellaneous Notes* Addendum Note - Parker Downing PA-C - 08/05/2023 5:15 PM EDTAddended by: PARKER DOWNING on: 08/05/2023 05:15 PM Modules accepted: Orders * Telephone Encounter - Caterina Hernandez RN - 08/05/2023 4:15 PM EDT Neuro SPINE CARE COORDINATION QUICK NOTE Called and left message for pt to return call, will also respond to [employer] message. Pt is 18wks and 4 days s/p C6/7 ACDF on 03/28/23. Pt reported sharp, shooting, pulling pain in shoulder and down to elbow after she went bowling for 1 game and used a 6 lb ball. [facility] Telephone encounter Note * Telephone Encounter - Caterina Hernandez RN - 08/05/2023 4:15 PM EDT Neuro SPINE CARE COORDINATION QUICK NOTE Called and left message for pt to return call, will also respond to [employer] message. Pt is 18wks and 4 days s/p C6/7 ACDF on 03/28/23. Pt reported sharp, shooting, pulling pain in shoulder and down to elbow after she went bowling for 1 game and used a 6 lb ball. [facility] Work Phone: 1(285) 857-913706-20-2024 NoteHNO ID: [id number] Author: LANEY CARROLL PA-C Service: ? Author Type: Physician Supervising Law Enforcement Analyst Type: Progress Notes Filed: 08/04/2023 15:42 Note Text: [facility] CHIEF COMPLAINT(CC): L shoulder pain HISTORY OF PRESENT ILLNESS (HPI): PAIN EVALUATION 08/04/2023 1202 08/04/2023 1344 Pain Level: 9 8 Pain Location: Shoulder-Left Shoulder-Left Description: Burning;Sharp;Shooting;Stabbing Aching;Throbbing Duration Amount of Time: 1 1 Duration Units: Weeks Weeks Frequency: Continuous Continuous Intervention/Comfort measure: Medication;Relaxation;Cold;Heat;Positioning Medication Comments: -- tens unit, advil, tylenol Claritza Martin is a 43-year-old female who comes in for a 1 week history of left shoulder pain. The patient states that she had gone bowling after she had a cervical fusion. She states she has a 6 pound ball did not feel any holding onto about the third toe. She is not sure if her pain came from her neck or her shoulder. She has been taking Tylenol, Advil and using a TENS unit with little improvement. She went to the urgent care earlier today and was given a Toradol injection with no improvement. She did see her primary care physician to who gave her a prescription for Zanaflex. She states it is helpful; however, it is making her very tired.. REVIEW OF SYMPTOMS (ROS): Constitutional: Any recent fevers? No Cardiovascular: Any chest pain? No Respiratory: Any shortness or breath? No Gastrointestinal: Any abdominal discomfort? No Integumentary: Any recent skin changes or rashes? No Neurologic: Any numbness or tingling? See Above Endocrine: Any diagnosis of diabetes? No Hematologic: Any recent bleeding episodes? No MEDICAL HISTORY: No pertinent PMH, PAST MEDICAL HISTORY Diagnosis Date Allergic rhinitis, cause unspecified Generalized anxiety disorder Major depressive disorder, recurrent episode, unspecified Migraine, unspecified, without mention of intractable migraine without mention of status migrainosus COMPLEX - had loss of vision (since returned but blurry at times) - CVA, MS ruled out - right pupil still often dilated vs. 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 . PHYSICAL EXAMINATION: Patient's vitals and nursing notes were reviewed. Vitals: LMP 05/16/2011 Skin: Skin color, texture, turgor normal, no suspicious rashes or lesions noted Psychiatric: mood and affect are appropriate, patient is oriented to time, place and person General Appearance: Well appearing, alert, in no acute distress, well-hydrated, and well nourished Cardiovascular: pedal pulses and radial pulses normal, no signs of upper or lower extremity edema Respiratory: no respiratory distress, no audible wheezing, no labored breathing, symmetric thoracic excursion Neurologic: bilateral deep tendon reflexes are normal and symmetric with no pathologic reflexes, sensation is grossly intact Lymphatic: no lymph node enlargement noted in the examined area Musculoskeletal Examination: Examination of the left shoulder: Inspection: normal cervical posture, shoulder alignment, and no joint deformities or swelling noted Shoulder Range of Motion: Flexion: poor effort secondary to pain Abduction: poor effort secondary to pain Internal rotation: 90 External rotation: 110 Apley scratch test (internal rotation): Right arm: patient able to reach to T11 Left arm: patient able to reach to L1 SC JOINT: no tenderness to palpation AC JOINT: no tenderness to palpation Scapula exam: normal examination of scapula with no dyskinetic motion noted Nirali Test / Empty Can Test (supraspinatus): global pain elicited which is nonspecific for this examination Resisted lateral rotation test (infraspinatus): global pain elicited which is nonspecific for this examination Belly press test (subscapualris): global pain elicited which is nonspecific for this examination Jacob's test: positive for pain with thumb down, relieved with thumb up Yergason's test: global pain elicited which is nonspecific for this examination Morris test: global pain elicited which is nonspecific for this examination Neer test: global pain elicited which is nonspecific for this examination IMAGING: Final results and radiologist's interpretation, available in the [facility] health record. Images were reviewed with the patient/family members in the office today. My personal interpretation of the performed imaging is no acute abnormality. ASSESSMENT: Acute pain of left shoulder PLAN: A prescription for Prednisone was sent to the pharmacy. Physical therapy was ordered. It is recommended that the patient follow up in 12 weeks for possible further imaging and treatment as needed. Detailed instructions were reviewed with the patient and all questions were answered in detail. Patient voiced understanding and compliance (more content not included)... [facility]06-20-2024 History of Present illness Narrative* Laney Carroll PA-C - 08/04/2023 1:53 PM EDT Images from the original note were not included. [facility] CHIEF COMPLAINT(CC): L shoulder pain HISTORY OF PRESENT ILLNESS (HPI): PAIN EVALUATION 08/04/2023 1202 08/04/2023 1344 Pain Level: 9 8 Pain Location: Shoulder-Left Shoulder-Left Description: Burning;Sharp;Shooting;Stabbing Aching;Throbbing Duration Amount of Time: 1 1 Duration Units: Weeks Weeks Frequency: Continuous Continuous Intervention/Comfort measure: Medication;Relaxation;Cold;Heat;Positioning Medication Comments: -- tens unit, advil, tylenol Claritza Martin is a 43-year-old female who comes in for a 1 week history of left shoulder pain. The patient states that she had gone bowling after she had a cervical fusion. She states she has a 6 pound ball did not feel any holding onto about the third toe. She is not sure if her pain came from her neck or her shoulder. She has been taking Tylenol, Advil and using a TENS unit with little improvement. She went to the urgent care earlier today and was given a Toradol injection with no improvement. She did see her primary care physician to who gave her a prescription for Zanaflex. She states it is helpful; however, it is making her very tired.. REVIEW OF SYMPTOMS (ROS): Constitutional: Any recent fevers? No Cardiovascular: Any chest pain? No Respiratory: Any shortness or breath? No Gastrointestinal: Any abdominal discomfort? No Integumentary: Any recent skin changes or rashes? No Neurologic: Any numbness or tingling? See Above Endocrine: Any diagnosis of diabetes? No Hematologic: Any recent bleeding episodes? No MEDICAL HISTORY: No pertinent PMH, PAST MEDICAL HISTORY Diagnosis Date Allergic rhinitis, cause unspecified Generalized anxiety disorder Major depressive disorder, recurrent episode, unspecified Migraine, unspecified, without mention of intractable migraine without mention of status migrainosus COMPLEX - had loss of vision (since returned but blurry at times) - CVA, MS ruled out - right pupilstill often dilated vs. 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 . PHYSICAL EXAMINATION: Patient's vitals and nursing notes were reviewed. Vitals: [facility] 05/16/2011 Skin: Skin color, texture, turgor normal, no suspicious rashes or lesions noted Psychiatric: mood and affect are appropriate, patient is oriented to time, place and person General Appearance: Well appearing, alert, in no acute distress, well-hydrated, and well nourished Cardiovascular: pedal pulses and radial pulses normal, no signs of upper or lower extremity edema Respiratory: no respiratory distress, no audible wheezing, no labored breathing, symmetric thoracicexcursion Neurologic: bilateral deep tendon reflexes are normal and symmetric with no pathologic reflexes, sensation is grossly intact Lymphatic: no lymph node enlargement noted in the examined area Musculoskeletal Examination: Examination of the left shoulder: Inspection: normal cervical posture, shoulder alignment, and no joint deformities or swelling noted Shoulder Range of Motion: Flexion: poor effort secondary to pain Abduction: poor effort secondary to pain Internal rotation: 90 External rotation: 110 Apley scratch test (internal rotation): Right arm: patient able to reach to T11 Left arm: patient able to reach to L1 SC JOINT: no tenderness to palpation AC JOINT: no tenderness to palpation Scapula exam: normal examination of scapula with no dyskinetic motion noted Nirali Test / Empty Can Test (supraspinatus): global pain elicited which is nonspecific for this examination Resisted lateral rotation test (infraspinatus): global pain elicited which is nonspecific for this examination Belly press test (subscapualris): global pain elicited which is nonspecific for this examination Jacob's test: positive for pain with thumb down, relieved with thumb up Yergason's test: global pain elicited which is nonspecific for this examination Morris test: global pain elicited which is nonspecific for this examination Neer test: global pain elicited which is nonspecific for this examination IMAGING: Final results and radiologist's interpretation, available in the [facility] health record. Images were reviewed with the patient/family members in the office today. My personal interpretation of the performed imaging is no acute abnormality. ASSESSMENT: Acute pain of left shoulder PLAN: A prescription for Prednisone was sent to the pharmacy. Physical therapy was ordered. It is recommended that the patient follow up in 12 weeks for possible further imaging and treatment as needed. Detailed instructions were reviewed with the patient and all questions were answered in detail. Patient voiced understanding and compliance with the above plan. We discussed emergent need to return to the express care or go to the emergency department. We discussed red flags associated with this condition and emergent treatment if they present. Laney Carroll PA-C documented in [facility] encounterTr[facility] Telephone encounter Note * Telephone Encounter - Archana Kwok CT - 08/04/2023 12:31 PM EDT Called patient to discuss appointment this afternoon. She was seen in [facility] earlier today at 8:20am and scheduled to see Leslie this afternoon at 1:40pm in orthopedics. Leslie advised me to call the patient and let her know that it is a possibility that one of these 2 visits may not be covered by her insurance, and to give the patient the option tocome in or reschedule. Patient elected to come into the office this afternoon. Will f/u as scheduled/PRN, Archana Kwok Cast Kyle [facility]06-20-[facility] Miscellaneous Notes* Telephone Encounter - Archana Kwok CT - 08/04/2023 12:31 PM EDT Called patient to discuss appointment this afternoon. She was seen in [facility] earlier today at 8:20am and scheduled to see Leslie this afternoon at 1:40pm in orthopedics. Leslie advised me to call the patient and let her know that it is a possibility that one of these 2 visits may not be covered by her insurance, and to give the patient the option tocome in or reschedule. Patient elected to come into the office this afternoon. Will f/u as scheduled/PRN, Archana Kwok Cast Tech documented in this encounterTr[facility]06-20-2024 Instructions* Patient Instructions* Coretta Parkinson APRN.LOCAL GOVERNMENT LEGISLATOR - 08/04/2023 8:50 AM EDT R.I.C.E. The general care of your injury includes the following: Resting, Icing, Compressing and Elevating the injured area. Remember this as RICE. REST: Limit the use of the injured body part. ICE: By applying ice to the affected area, swelling and pain can be reduced. Place some ice cubes in a re-sealable (Ziploc) bag and add some water. Put a thin washcloth between the bag and your skin.Apply the ice bag to the area for at least 20 minutes. Do this at least 4 times per day. Using the ice for longer times and more frequently is OK. NEVER APPLY ICE DIRECTLY TO THE SKIN. COMPRESS: Compression means to apply pressure around the injured area such as with a splint, cast or an cj bandage. Compression decreases swelling and improves comfort. Compression should be tight enough to relieve swelling but not so tight as to decrease circulation. Increasing pain, numbness, tingling, or change in skin color, are all signs of decreased circulation. ELEVATE: Elevate the injured part. For example, elevate your foot by placing it on a chair while sitting, or propping it up on pillows when lying down. documented in this encounterTr[facility]06-20-2024 History of Present illness Narrative* Dawson Fisher RT(R) - 08/04/2023 8:20 AM EDT Radiology Service Progress Note PATIENT NAME: Claritza Martin DATE OF SERVICE: August 04, 2023 TIME: 8:20 AM PATIENT IDENTITY VERIFICATION COMPLETED USING TWO (2) IDENTIFIERS: Name and Date of confirmedby patient verbally. FALL SCREENING: Has the patient had 2 falls in the last year or 1 fall with injury or currently using an Ambulatory Assistive Device (Walker, Cane, Wheelchair, Crutches, etc.)? No PATIENT GENDER DATA: Female. status: : No status: NO. PATIENT RELEVANT IMPLANT DATA REVIEWED: Not Applicable PATIENT PRESENTS WITH AN IMPLANTABLE OR ATTACHED MOTOR ADJUSTER: No RADIOLOGY DEPARTMENT: General X-ray: Exam(s) Completed: Upper Extremity X- Ray(s): Shoulder, AP / TRUE AP / AXILLARY left PERIPHERAL IV DATA: Not applicable SIGNED BY: RT Stefany(R) August 04, 2023 8:20 AM documented in this encounterTrumbull [facility]06-20-2024 NoteHNO ID: [id number] Author: DAWSON FISHER RT(R) Service: Radiology Author Type: Technologist Type: Progress Notes Filed: 08/04/2023 08:34 Note Text: Radiology Service Progress Note PATIENT NAME: Claritza Martin DATE OF SERVICE: August 04, 2023 TIME: 8:20 AM PATIENT IDENTITY VERIFICATION COMPLETED USING TWO (2) IDENTIFIERS: Name and Date of confirmed by patient verbally. FALL SCREENING: Has the patient had 2 falls in the last year or 1 fall with injury or currently using an Ambulatory Assistive Device (Walker, Cane, Wheelchair, Crutches, etc.)? No PATIENT GENDER DATA: Female. status: : No status: NO. PATIENT RELEVANT IMPLANT DATA REVIEWED: Not Applicable PATIENT PRESENTS WITH AN IMPLANTABLE OR ATTACHED MOTOR ADJUSTER: No RADIOLOGY DEPARTMENT: General X-ray: Exam(s) Completed: Upper Extremity X-Ray(s): Shoulder, AP / TRUE AP / AXILLARY left PERIPHERAL IV DATA: Not applicable SIGNED BY: RT Stefany(R) August 04, 2023 8:20 [facility]06-20-2024 NoteHNO ID: [id number] Author: CORETTA PARKINSON APRN.LOCAL GOVERNMENT LEGISLATOR Service: ? Author Type: Nurse Practitioner Type: Progress Notes Filed: 08/04/2023 09:02 Note Text: This note was created using NoteWriter. Subjective Claritza Martin is a 42 year old female. 42 year old female with PMH migraine, RLS, anxiety, cervical fusion presents for shoulder pain. Acute onset approximately one week ago Endorses that she went bowling. States she started to feel pain in left shoulder as she was bowling States that she used a 6lb ball She quit after the first game related to feeling discomfort Presents today related to continued pain left shoulder Denies CP Denies dyspnea Denies lightheadedness or dizziness Denies neck or back pain February she had c6 and c 7 fusino She had repair c5 2019 Pain is worse at night Unable to lift arm above head Has used ice, heat, and advil Has used Voltaren and TENS unit without relief She has home muscle relaxer that are not helping Also endorses that steroids she does not tolerate The history is provided by the patient. No assistant speech language pathologist was used. PAST MEDICAL HISTORY Diagnosis Date Allergic rhinitis, cause unspecified Generalized anxiety disorder Major depressive disorder, recurrent episode, unspecified Migraine, unspecified, without mention of intractable migraine without mention of status migrainosus COMPLEX - had loss of vision (since returned but blurry at times) - CVA, MS ruled out - right pupil still often dilated vs. 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 PAST SURGICAL HISTORY Procedure Laterality Date ADENOIDECTOMY PRIMARY Adenoidectomy BX BREAST PERC NEED W/GUID 11/24/2012 U/S needle core bx right breast 8 O'clock DILATION AND CURETTAGE DXAND/THER NONOBSTETRIC 07/15/2006 for miscarriage LAPAROSCOPY SURG CHOLECYSTECTOMY 03/21/2015 Cholecystectomy, lap NEUROPLASTY AND/TRANSPOSITION ULNAR NERVE ELBOW Left 11/25/2021 Left ulnar nerve decompression PAST SURGICAL HISTORY OF 04/2020 disc replacement surgery between c5 and c6 STRABISM SURG,PREV EYE SURG,NOT MUSC 1987,1997 eye surgery-left TONSILLECTOMY PRIMARY/SECONDARY Tonsillectomy VAGINAL HYSTERECTOMY UTERUS 250 GM/< 02/14/2011 ALLERGIES Cortisone MEDICATIONS tiZANidine (ZANAFLEX) 4 mg tablet diclofenac (VOLTAREN) 1 % topical gel Apply to affected area four times daily. acetaminophen (TYLENOL) 325 mg tablet 2 tablets by ORAL/FEEDING TUBE route every 6 hours as needed for pain. MULTIVITAMIN ORAL Take by mouth once daily. methocarbamol (ROBAXIN) 750 mg tablet Take 1 tablet by mouth every 6 hours as needed (Muscle spasms / pain). (Patient not taking: Reported on 08/04/2023) benzocaine-menthol (CHLORASEPTIC) 6-10 mg lozenges Use 1 Lozenge as instructed every 2 hours as needed. (Patient not taking: Reported on 08/04/2023) senna-docusate (SENNA-S) 8.6-50 mg per tablet Take 2 tablets by mouth two times a day as needed for constipation. (Patient not taking: Reported on 08/04/2023) FAMILY HISTORY Problem Relation Age of Onset Arthritis Mother Diabetes Father Hypertension Father Lipids Father Colon Cancer Maternal Grandmother Diabetes Paternal Grandmother Heart Paternal Grandmother Diabetes Paternal Grandfather Ischemic Heart Disease Paternal Grandfather OR and CVA Breast Cancer Maternal Aunt dx age 40's Colon Cancer Paternal Aunt dx age 30's Cancer Other cousin-uterine cancer other (migraine) Brother Cervical Cancer Other maternal cousin Social History Tobacco Use Smoking status: Former Packs/day: 0.25 Years: 8.00 Additional pack years: 0.00 Total pack years: 2.00 Types: Cigarettes Quit date: 2017 Years since quittin.4 Smokeless tobacco: Never Tobacco comments: Smoked occassionally for 5 yrs. Vaping Use Vaping Use: Never used Substance Use Topics Alcohol use: Yes Comment: 1/month Drug use: No Review of Systems Constitutional: Negative for chills, diaphoresis, fatigue and fever. Respiratory: Negative for apnea, cough, choking, chest tightness and shortness of breath. Cardiovascular: Negative for chest pain, palpitations and leg swelling. Gastrointestinal: Negative for abdominal pain, diarrhea, nausea and vomiting. Musculoskeletal: Left shoulder pain Skin: Negative for color change, pallor, rash and wound. Allergic/Immunologic: Negative for environmental allergies, food allergies and immunocompromised state. Neurological: Negative for dizziness, seizures, facial asymmetry, light-headedness, numbness and headaches. Hematological: Negative for adenopathy. Does not bruise/bleed easily. Psychiatric/Behavioral: Negative for agitation and behavioral problems. Objective BP 149/99 Pulse 71 Temp 37.1 ?C (98.7 ?F) Resp 18 Wt 61.4 kg (135 lb 5.8 oz) LMP 05/16/2011 SpO2 100% BMI 24.76 kg/m? Physical Exam Vitals and n (more content not included)...[facility]06-20-2024 History of Present illness Narrative* Coretta Parkinson, MISSAEL.LOCAL GOVERNMENT LEGISLATOR - 08/04/2023 8:12 AM EDT This note was created using NoteWriter. Subjective Claritza Martin is a 42 year old female. 42 year old female with PMH migraine, RLS, anxiety, cervical fusion presents for shoulder pain. Acute onset approximately one week ago Endorses that she went bowling. States she started to feel pain in left shoulder as she was bowling States that she used a 6lb ball She quit after the first game related to feeling discomfort Presents today related to continued pain left shoulder Denies CP Denies dyspnea Denies lightheadedness or dizziness Denies neck or back pain February she had c6 and c 7 fusino She had repair c5 2019 Pain is worse at night Unable to lift arm above head Has used ice, heat, and advil Has used Voltaren and TENS unit without relief She has home muscle relaxer that are not helping Also endorses that steroids she does not tolerate The history is provided by the patient. No assistant speech language pathologist was used. PAST MEDICAL HISTORY Diagnosis Date Allergic rhinitis, cause unspecified Generalized anxiety disorder Major depressive disorder, recurrent episode, unspecified Migraine, unspecified, without mention of intractable migraine without mention of status migrainosus COMPLEX - had loss of vision (since returned but blurry at times) - CVA, MS ruled out - right pupilstill often dilated vs. 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 PAST SURGICAL HISTORY Procedure Laterality Date ADENOIDECTOMY PRIMARY <AGE 12 02/14/1986 Adenoidectomy BX BREAST PERC NEED W/GUID 11/24/2012 U/S needle core bx right breast 8 O'clock DILATION & CURETTAGE DX&/THER NONOBSTETRIC 07/15/2006 for miscarriage LAPAROSCOPY SURG CHOLECYSTECTOMY 03/21/2015 Cholecystectomy, lap NEUROPLASTY &/TRANSPOSITION ULNAR NERVE ELBOW Left 11/25/2021 Left ulnar nerve decompression PAST SURGICAL HISTORY OF 04/2020 disc replacement surgery between c5 and c6 STRABISM SURG,PREV EYE SURG,NOT MUSC 1987,1997 eye surgery-left TONSILLECTOMY PRIMARY/SECONDARY <AGE 12 02/14/1986 Tonsillectomy VAGINAL HYSTERECTOMY UTERUS 250 GM/< 02/14/2011 ALLERGIES Cortisone MEDICATIONS tiZANidine (ZANAFLEX) 4 mg tablet diclofenac (VOLTAREN) 1 % topical gel Apply to affected area four times daily. acetaminophen (TYLENOL) 325 mg tablet 2 tablets by ORAL/FEEDING TUBE route every 6 hours as needed for pain. MULTIVITAMIN ORAL Take by mouth once daily. methocarbamol (ROBAXIN) 750 mg tablet Take 1 tablet by mouth every 6 hours as needed (Muscle spasms/ pain). (Patient not taking: Reported on 08/04/2023) benzocaine-menthol (CHLORASEPTIC) 6-10 mg lozenges Use 1 Lozenge as instructed every 2 hours as needed. (Patient not taking: Reported on 08/04/2023) senna-docusate (SENNA-S) 8.6-50 mg per tablet Take 2 tablets by mouth two times a day as needed forconstipation. (Patient not taking: Reported on 08/04/2023) FAMILY HISTORY Problem Relation Age of Onset Arthritis Mother Diabetes Father Hypertension Father Lipids Father Colon Cancer Maternal Grandmother Diabetes Paternal Grandmother Heart Paternal Grandmother Diabetes Paternal Grandfather Ischemic Heart Disease Paternal Grandfather OR and CVA Breast Cancer Maternal Aunt dx age 40's Colon Cancer Paternal Aunt dx age 30's Cancer Other cousin-uterine cancer other (migraine) Brother Cervical Cancer Other maternal cousin Social History Tobacco Use Smoking status: Former Packs/day: 0.25 Years: 8.00 Additional pack years: 0.00 Total pack years: 2.00 Types: Cigarettes Quit date: 2017 Years since quittin.4 Smokeless tobacco: Never Tobacco comments: Smoked occassionally for 5 yrs. Vaping Use Vaping Use: Never used Substance Use Topics Alcohol use: Yes Comment: 1/month Drug use: No Review of Systems Constitutional: Negative for chills, diaphoresis, fatigue and fever. Respiratory: Negative for apnea, cough, choking, chest tightness and shortness of breath. Cardiovascular: Negative for chest pain, palpitations and leg swelling. Gastrointestinal: Negative for abdominal pain, diarrhea, nausea and vomiting. Musculoskeletal: Left shoulder pain Skin: Negative for color change, pallor, rash and wound. Allergic/Immunologic: Negative for environmental allergies, food allergies and immunocompromised state. Neurological: Negative for dizziness, seizures, facial asymmetry, light- headedness, numbness and headaches. Hematological: Negative for adenopathy. Does not bruise/bleed easily. Psychiatric/Behavioral: Negative for agitation and behavioral problems. Objective BP 149/99 Pulse 71 Temp 37.1 C (98.7 F) Resp 18 Wt 61.4 kg (135 lb 5.8 oz) LMP 05/16/2011 SpO2 100% BMI 24.76 kg/m Physical Exam Vitals and nursing note reviewed. Constitutional: General: She is not in acute distress. Appearance: Normal appearance. She is normal weight. She is not ill-appearing, toxic-appearing or diaphoretic. HENT: Head: Normocephalic and atraumatic. Right Ear: Ear canal and external ear normal. Left Ear: Ear canal and external ear normal. Nose: Nose normal. No congestion or rhinorrhea. Mouth/Throat: Mouth: Mucous membranes are moist. Pharynx: No oropharyngeal exudate or posterior oropharyngeal erythema. Eyes: General: Right eye: No discharge. Left eye: No discharge. Extraocular Movements: Extraocular movements intact. Conjunctiva/sclera: Conjunctivae normal. Pupils: Pupils are equal, round, and reactive to light. Cardiovascular: Rate and Rhythm: Normal rate and regular rhythm. Pulses: Normal pulses. Heart sounds: Normal heart sounds. No murmur heard. No friction rub. Pulmonary: Effort: Pulmonary effort is normal. No respiratory distress. Breath sounds: Normal breath sounds. No stridor. No wheezing, rhonchi or rales. Chest: Chest wall: No tenderness. Abdominal: General: Abdomen is flat. There is no distension. Palpations: Abdomen is soft. There is no mass. Tenderness: There is no abdominal tenderness. There is no right CVA tenderness, left CVA tenderness, guarding or rebound. Hernia: No hernia is present. Musculoskeletal: General: Tenderness present. No swelling, deformity or signs of injury. Cervical back: Normal range of motion and neck supple. No rigidity. Right lower leg: No edema. Left lower leg: No edema. Comments: Left upper trapezius muscle with diffuse TTP Limited and difficult ROM left upper extremity Unable to lift arm above head +neuro +sensation RP + 2 B/L No midline cervical, thoracic, or lumbar Denies skin rash or lesions Lymphadenopathy: Cervical: No cervical adenopathy. Skin: General: Skin is warm and dry. Coloration: Skin is not jaundiced or pale. Findings: No bruising, erythema, lesion or rash. Neurological: General: No focal deficit present. Mental Status: She is alert and oriented to person, place, and time. Cranial Nerves: No cranial nerve deficit. Sensory: No sensory deficit. Motor: No weakness. Coordination: Coordination normal. Gait: Gait normal. Psychiatric: Mood and Affect: Mood normal. Behavior: Behavior normal. Thought Content: Thought content normal. Judgment: Judgment normal. Assessment and Plan ASSESSMENT/PLAN: 1. Acute pain of left shoulder - ICD9: 719.41, ICD10: M25.512 Acute onset approximately one week ago Occurred with bowling ??? Ligamentous injury given unable to lift upper extremity above head Worse at night and laying down Neuro intact - XR SHOULDER GENERAL 3V OR MORE AP/TRUE AP/OTHER LEFT-negative - KETOROLAC 60 MG/2 ML INTRAMUSCULAR SOLUTION-provided here - CONSULT PANEL TO ORTHOPAEDICS-appt made at time of discharge OTC analgesics RICE therapy Discussed red flags and reasons to seek ED Coretta Parkinson APRN.LOCAL GOVERNMENT LEGISLATOR documented in this encounterTr[facility]05-20-2024 History of Present illness Narrative* Symone Ardon RT(R) - 07/04/2023 8:00 AM EDT Radiology Service Progress Note PATIENT NAME: Claritza Martin DATE OF SERVICE: July 04, 2023 TIME: 8:54 AM PATIENT IDENTITY VERIFICATION COMPLETED USING TWO (2) IDENTIFIERS: Name and Date of confirmedby patient verbally. FALL SCREENING: Has the patient had 2 falls in the last year or 1 fall with injury or currently using an Ambulatory Assistive Device (Walker, Cane, Wheelchair, Crutches, etc.)? No PATIENT GENDER DATA: Female. status: : No status: NO. PATIENT RELEVANT IMPLANT DATA REVIEWED: Yes PATIENT PRESENTS WITH AN IMPLANTABLE OR ATTACHED MOTOR ADJUSTER: No RADIOLOGY DEPARTMENT: MR; Exam(s) Completed: Spine: Cervical spine PERIPHERAL IV DATA: Not applicable SIGNED BY: TIM Davey) July 04, 2023 8:54 AM documented in this encounterTrumbull [facility]05-20-2024 NoteHNO ID: [id number] Author: SYMONE ARDON RT(R) Service: ? Author Type: Technologist Type: Progress Notes Filed: 07/04/2023 08:54 Note Text: Radiology Service Progress Note PATIENT NAME: Claritza Martin DATE OF SERVICE: July 04, 2023 TIME: 8:54 AM PATIENT IDENTITY VERIFICATION COMPLETED USING TWO (2) IDENTIFIERS: Name and Date of confirmed by patient verbally. FALL SCREENING: Has the patient had 2 falls in the last year or 1 fall with injury or currently using an Ambulatory Assistive Device (Walker, Cane, Wheelchair, Crutches, etc.)? No PATIENT GENDER DATA: Female. status: : No status: NO. PATIENT RELEVANT IMPLANT DATA REVIEWED: Yes PATIENT PRESENTS WITH AN IMPLANTABLE OR ATTACHED MOTOR ADJUSTER: No RADIOLOGY DEPARTMENT: MR; Exam(s) Completed: Spine: Cervical spine PERIPHERAL IV DATA: Not applicable SIGNED BY: RT Tamica(R) July 04, 2023 8:54 [facility]05-13-2024 NoteHNO ID: [id number] Author: PARKER LEIVA APRN.JAYANT Service: ? Author Type: Nurse Practitioner Type: Progress Notes Filed: 06/27/2023 15:37 Note Text: VIRTUAL SPINE SURGERY ESTABLISHED PATIENT This is a virtual visit using jaeyosom Video Visit. It required patient-provider interaction for the medical decision making as documented below. I have communicated my name and active licensure. The patient's identity and physical location were verified at the time of this visit. Either the patient or their legal fuels sales representative has been informed of the risks and benefits of -- and alternatives to -- treatment through a remote evaluation and consents to proceed with the evaluation remotely. SERVICE DATE: 06/27/2023 PREVIOUS SPINAL SURGERY: 06/2019 C5/6 left sided ADR with [facility] SURGERY DATE: 03/28/2023 SURGERY: C6-C7 ACDF SURGEON: Dr. Corbin Weaver PRE-OP SX: left cervical radiculopathy as well as RUE and BLE paraesthesias; neck pain DATE OF LAST VISIT: 05/20/2023 BENNETT Martin is a 42 year old female presenting alone. Pt reports she was doing so well following surgery Pre-op sx better Was in outpatient physical therapy and back to work The last few weeks has been feeling worse Burning at the base of the neck With laying on her sides, it will radiate into the L>R shoulder blades Pre-op radiating LUE is much better RUE n/t paraesthesias is worse, particularly in the pinky and ring finger. Exercises in PT can worsen the pain and numbness in the hands Did have a fall the other day PREVIOUS CONSERVATIVE TREATMENTS: Heat Salon Pas Muscle relaxer: robaxin Analgesics: tylenol Membrane stabilizer: Gabapentin in the past pre-op Physical therapy: May 2023 - current x3 sessions MEDICATIONS: methocarbamol (ROBAXIN) 750 mg tablet Take 1 tablet by mouth every 6 hours as needed (Muscle spasms / pain). acetaminophen (TYLENOL) 325 mg tablet 2 tablets by ORAL/FEEDING TUBE route every 6 hours as needed for pain. benzocaine-menthol (CHLORASEPTIC) 6-10 mg lozenges Use 1 Lozenge as instructed every 2 hours as needed. senna-docusate (SENNA-S) 8.6-50 mg per tablet Take 2 tablets by mouth two times a day as needed for constipation. MULTIVITAMIN ORAL Take by mouth once daily. Patient Entered Questionnaires 01/09/2023 06/27/2023 Spine Questions Pain Location: Neck Neck Pain Duration: 1 to 5 years Pain over last 6 months: Every day or nearly every day in the past 6 months Symptoms from neck/cervical spine: Yes Yes Employment Status: Working now Working now Involved in law suit/legal claim: No 01/09/2023 06/27/2023 Neck Questionnaires Benzel Modified RACHEAL Score 16 (Mild Myelopathy Symptoms) 16 (Mild Myelopathy Symptoms) PROMIS Score Percentiles 01/09/2023 06/05/2023 06/27/2023 Physical Health Physical Function Percentile 14 8 Sleep Percentile 21* 14 Fatigue Percentile 24* 58 Pain Interference Percentile 16* 5 01/09/2023 06/27/2023 PROMIS SOCIAL ROLE SCORE Social Role Satisfaction Percentile 42 42 01/09/2023 03/04/2023 06/05/2023 PROMIS Global Health Scale Physical Health Percentile 41 41 41 Mental Health Percentile 63 73 73 Percentiles provide an indication of how the patient's score ranks in relation to the general population. Higher percentile rankings indicate better function/quality of life. 50th percentile is the average of the general population and indicates half of respondents had a worse score. Depression Screenin12/16/2014 01/09/2023 06/27/2023 PHQ-9 Score 8 2 2 12/16/2014 01/09/2023 06/27/2023 PHQ-9 Self-harm Question Question 9 Not at all Not at all Not at all PHQ-9 Self-Harm (Item 9) response options: 0 Not at all 1 Several days 2 More than half the days 3 Nearly every day PHQ-9 Levels: 0-4 No to mild depression 5-9 Mild depression 10-14 Moderate depression 15-19 Moderately severe depression 20-27 Severe depression OBJECTIVE: VIRTUAL PHYSICAL EXAM GENERAL APPEARANCE: Well nourished, well developed, and no apparent distress. NEURO PSYCH: Patient oriented to person, place, and time. Mood pleasant. Benign affect. DATA REVIEW [facility] records independently reviewed Images independently reviewed with the patient ASSESSMENT/PLAN (M48.02) Spinal stenosis of cervical region (primary encounter diagnosis) (Z98.1) S/P cervical spinal fusion (Z98.890) S/P cervical disc replacement (R20.0) Bilateral hand numbness (M50.10) Cervical disc disorder with radiculopathy 42 yo 3 months s/p C6-C7 ACDF; hx of 2019 C5/6 ADR. Initially with improvement post op but now increasing neck pain radiating into bilateral shoulder with radiating R>L UE paraesthesias to the hands. Pre-op MRI with severe C6/7 stenosis secondary to disc herniation Claritza Martin has a condition that requires further workup. Trial of lyrica discussed. Indications, dosing and side effects reviewed. She declined at this time MRI cerv (more content not included)...[facility]05-06-2024 History of Present illness Narrative* June Hills PTA - 06/20/2023 4:02 PM EDT Program_ID:[id number] Access Code: [email or web address] URL: [email or web address] Date: 06-20-2023 Prepared By: Coretta Moore Program Notes Exercises - Doorway Pec Stretch at 60 Degrees Abduction with Arm Straight - 3 x daily - 7 x weekly - 3 sets - 1 reps - Single Arm Doorway Pec Stretch at 90 Degrees Abduction - 3 x daily - 7 x weekly - 3 sets - 1 reps - Seated Cervical Retraction - 2 x daily - 7 x weekly - 4 sets - 10 reps - Ulnar Nerve/Median [place]- Low Level - 1 x daily - 7 x weekly - 1-2 sets - 10 reps * Coretta Moore, PT - 06/20/2023 3:34 PM EDT Episode Visit Count: 3 Therapist That Will Accept/Oversee The Plan Of Care: Coretta Moore Start of Care Date: 06/07/23 Onset Date: 03/28/23 Plan of Care Certification Date: 06/07/23 Next Certification Due Date: 07/12/23 Patient Identified by Name and Date of : Yes REHABILITATION AND SPORTS THERAPY PHYSICAL THERAPY TREATMENT NOTE ASSESSMENT: Claritza Martin tolerated the session with fatigue, increased symptoms, and expected muscle soreness. She demonstrated improvements in radicular symptoms with ulnar nerve glide. The patient will continue to benefit from ongoing skilled physical therapy to progress toward set goals. PLAN FOR NEXT VISIT: scapular stabilization with theraband, hold SUBJECTIVE: Pt reports that her neck and L arm and shoulder are really bothering her today. Has numbness and tingling going down her arm into her pinky and ring fingers. Pt reports still having difficulty sleeping and using lidocane patches to help. Difficulty with gripping objects in L hand. Pt states turning her head is causing more dizziness and she tripped on the stairs due to this, but grabbe d the railing. Pain: Pain Pain Location: Neck - Left Description: Sharp, Burning, Stabbing Pain Location 2: Scapula - Left, Arm - Left Description 2: Sharp, Burning Post Treatment Pain Post Treatment Pain Level: Worse Post Treatment Pain Location: Shoulder - Left, Neck Post Treatment Pain Score 2: No Change Post Treatment Pain Location 2: Neck - Left OBJECTIVE MEASURES WITH LEVEL OF FUNCTION: Very cautious with cervical spine movement and holds shoulders in guarded position. TREATMENT: Therapeutic Exercise: 1: Seated cervical retraction x 5, caused shooting pain down the middle of her spine 2: standing scapular circles with ball on wall 30 sec CW and 30 sec CCW 2x each shoulder at 90 elevation of shoulder 3: *ulnar nerve glide, low level 2x10 LUE, 1x10 RUE 4: Scapular retractions x 5 , increased pain 5: Banded w with OTB x 15 seconds, 2x10 seconds (pain from neck down into L shoulder blade) Skilled Intervention: Patient was educated in proper exercise technique and purpose for exercises. Reviewed and educated patient on additions/changes for home exercise program as above (*). Skilled judgment was used in selection of appropriate interventions. Provided written instruction for home exercise program to facilitate proper performance and compliance. Correct performance of therapeutic exercises was facilitated with verbal and visual cuing. Billing Therapeutic Exercise Treatment Minutes: 36 Skilled Treatment Time Minutes (timed and untimed codes): 36 Total Session Time (minutes): 36 Session Start Time : 1532 Session Stop Time : 1608 IBIS Helton PT [facility] NoteHNO ID: [id number] Author: CORETTA MOORE PT Service: ? Author Type: Physical Therapist Type: Progress Notes Filed: 10/12/2023 12:16 Note Text: 10/12/2023 [facility] REHABILITATION AND SPORTS THERAPY PHYSICAL THERAPY DISCONTINUANCE OF CARE Plan of Care Period: Start of Care Date: 06/07/23 Last Visit Date: 06/20/2023 Therapy Program: The following is a summary of the interventions provided for this episode of care; Therapeutic exercise and Self-group home management Assessment: Based on most recent visit, patient was progressing slower than expected toward functional goals based on appointment compliance. Unable to formally assess goal achievement, as patient has not returned to therapy or scheduled additional follow-up appointments. Reason for Discontinuation of Care: Patient has not returned to therapy or scheduled additional follow-up appointments. Coretta Moore PT Episode Visit Count: 3 Therapist That Will Accept/Oversee The Plan Of Care: Coretta Moore Start of Care Date: 06/07/23 Onset Date: 03/28/23 Plan of Care Certification Date: 06/07/23 Next Certification Due Date: 07/12/23 Patient Identified by Name and Date of : Yes REHABILITATION AND SPORTS THERAPY PHYSICAL THERAPY TREATMENT NOTE ASSESSMENT: Claritza Martin tolerated the session with fatigue, increased symptoms, and expected muscle soreness. She demonstrated improvements in radicular symptoms with ulnar nerve glide. The patient will continue to benefit from ongoing skilled physical therapy to progress toward set goals. PLAN FOR NEXT VISIT: scapular stabilization with theraband, hold SUBJECTIVE: Pt reports that her neck and L arm and shoulder are really bothering her today. Has numbness and tingling going down her arm into her pinky and ring fingers. Pt reports still having difficulty sleeping and using lidocane patches to help. Difficulty with gripping objects in L hand. Pt states turning her head is causing more dizziness and she tripped on the stairs due to this, but grabbed the railing. Pain: Pain Pain Location: Neck - Left Description: Sharp, Burning, Stabbing Pain Location 2: Scapula - Left, Arm - Left Description 2: Sharp, Burning Post Treatment Pain Post Treatment Pain Level: Worse Post Treatment Pain Location: Shoulder - Left, Neck Post Treatment Pain Score 2: No Change Post Treatment Pain Location 2: Neck - Left OBJECTIVE MEASURES WITH LEVEL OF FUNCTION: Very cautious with cervical spine movement and holds shoulders in guarded position. TREATMENT: Therapeutic Exercise: 1: Seated cervical retraction x 5, caused shooting pain down the middle of her spine 2: standing scapular circles with ball on wall 30 sec CW and 30 sec CCW 2x each shoulder at 90 elevation of shoulder 3: *ulnar nerve glide, low level 2x10 LUE, 1x10 RUE 4: Scapular retractions x 5 , increased pain 5: Banded w with OTB x 15 seconds, 2x10 seconds (pain from neck down into L shoulder blade) Skilled Intervention: Patient was educated in proper exercise technique and purpose for exercises. Reviewed and educated patient on additions/changes for home exercise program as above (*). Skilled judgment was used in selection of appropriate interventions. Provided written instruction for home exercise program to facilitate proper performance and compliance. Correct performance of therapeutic exercises was facilitated with verbal and visual cuing. Billing Therapeutic Exercise Treatment Minutes: 36 Skilled Treatment Time Minutes (timed and untimed codes): 36 Total Session Time (minutes): 36 Session Start Time : 1532 Session Stop Time : 1608 [place], IBIS Moore, [facility]05-03-2024 History of Present illness Narrative* Tai Dubois, RT(R) - 06/17/2023 4:30 PM EDT Radiology Service Progress Note PATIENT NAME: Claritza Martin DATE OF SERVICE: June 17, 2023 TIME: 4:26 PM PATIENT IDENTITY VERIFICATION COMPLETED USING TWO (2) IDENTIFIERS: Name and Date of confirmedby patient verbally. FALL SCREENING: Has the patient had 2 falls in the last year or 1 fall with injury or currently using an Ambulatory Assistive Device (Walker, Cane, Wheelchair, Crutches, etc.)? No PATIENT GENDER DATA: Female. status: : No status: NO. PATIENT RELEVANT IMPLANT DATA REVIEWED: Yes PATIENT PRESENTS WITH AN IMPLANTABLE OR ATTACHED MOTOR ADJUSTER: No RADIOLOGY DEPARTMENT: General X-ray: Exam(s) Completed: Spine X-Ray(s): Cervical AP / LAT / FLEX-EXT PERIPHERAL IV DATA: Not applicable SIGNED BY: RT Juice(R) June 17, 2023 4:26 PM [facility]24 NoteHNO ID: [id number] Author: TAI DUBOIS RT(R) Service: Radiology Author Type: Technologist Type: Progress Notes Filed: 06/17/2023 16:33 Note Text: Radiology Service Progress Note PATIENT NAME: Claritza Martin DATE OF SERVICE: June 17, 2023 TIME: 4:26 PM PATIENT IDENTITY VERIFICATION COMPLETED USING TWO (2) IDENTIFIERS: Name and Date of confirmed by patient verbally. FALL SCREENING: Has the patient had 2 falls in the last year or 1 fall with injury or currently using an Ambulatory Assistive Device (Walker, Cane, Wheelchair, Crutches, etc.)? No PATIENT GENDER DATA: Female. status: : No status: NO. PATIENT RELEVANT IMPLANT DATA REVIEWED: Yes PATIENT PRESENTS WITH AN IMPLANTABLE OR ATTACHED MOTOR ADJUSTER: No RADIOLOGY DEPARTMENT: General X-ray: Exam(s) Completed: Spine X-Ray(s): Cervical AP / LAT / FLEX-EXT PERIPHERAL IV DATA: Not applicable SIGNED BY: RT Juice(R) June 17, 2023 4:26 [facility]04-30-2024 History of Present illness Narrative* Coretta Moore, PT - 06/14/2023 4:51 PM EDT Program_ID:[id number] Access Code: [email or web address] URL: [email or web address] Date: 06-14-2023 Prepared By: Coretta Moore Program Notes Exercises - Doorway Pec Stretch at 60 Degrees Abduction with Arm Straight - 3 x daily - 7 x weekly - 3 sets - 1 reps - Single Arm Doorway Pec Stretch at 90 Degrees Abduction - 3 x daily - 7 x weekly - 3 sets - 1 reps - Seated Cervical Retraction - 2 x daily - 7 x weekly - 4 sets - 10 reps * Coretta Moore, PT - 06/14/2023 4:20 PM EDT Episode Visit Count: 2 Therapist That Will Accept/Oversee The Plan Of Care: Coretta Moore Start of Care Date: 06/07/23 Onset Date: 03/28/23 Plan of Care Certification Date: 06/07/23 Next Certification Due Date: 07/12/23 REHABILITATION AND SPORTS THERAPY PHYSICAL THERAPY TREATMENT NOTE ASSESSMENT: Claritza Martin tolerated the session with fatigue and increased symptoms. She demonstrated difficulty with cervical retraction, reporting burning sharp pain with minimal AROM. The patient will continue to benefit from ongoing skilled physical therapy to progress toward set goals. PLAN FOR NEXT VISIT: scapular stabilization with theraband, hold SUBJECTIVE: Pt. reports increased pain at night when laying supine. Lidocaine patch worn at night. Aleve taken before she came to PT today. Patient Goals: reduce pain with work and ADLs. Pain: Pain Pain Level: 2 Pain Location: Neck - Left Description: Stiffness, Burning Pain Level 2: 4 Pain Location 2: Scapula - Left ([place] scapular boarder) Post Treatment Pain Post Treatment Pain Level: 5 Post Treatment Pain Location: Scapula - Left Post Treatment Pain Score 2: 4/10 Post Treatment Pain Location 2: Neck - Left Post Treatment Pain Description 2: Sharp OBJECTIVE MEASURES WITH LEVEL OF FUNCTION: TREATMENT: Therapeutic Exercise: 1: seated cervical retraction 1x10 2: standing cervical retraction to neutral with occiput on ball on wall 1 min (cues to maintain neutral, fwd head posture with 10-15 sec of static hold) 3: *Access Code: [email or web address] URL: [email or web address] Date: 06/14/2023 Prepared by: Coretta Wilhelm Exercises - Doorway Pec Stretch at 60 Degrees Abduction with Arm Straight - 3 x daily - 7 x weekly - 3 sets - 1 reps - 30 hold - Single Arm Doorway Pec Stretch at 90 Degrees Abduction - 3 x daily - 7 x weekly - 3 sets - 1 reps - 30 hold - Seated Cervical Retraction - 2 x daily - 7x weekly - 4 sets - 10 reps - 1 hold 4: seated scapular circles 30 sec CW and 30 sec CCW 2x each shoulder at 90 elevation of shoulder Skilled Intervention: Patient was educated in proper exercise technique and purpose for exercises. Reviewed and educated patient on additions/changes for home exercise program as above (*). Skilled judgment was used in selection of appropriate interventions. Provided written instruction for home exercise program to facilitate proper performance and compliance. Correct performance of therapeutic exercises was facilitated with verbal, visual, and tactile cuing. Educated patient on rationale for performing exercises in regards to decreasing fatigue , increase ease of ADL, and ROM and function . Patient education as noted. Billing Therapeutic Exercise Treatment Minutes: 40 Skilled Treatment Time Minutes (timed and untimed codes): 40 Total Session Time (minutes): 40 Session Start Time : 1618 Session Stop Time : 1658 Coretta Moore PT documented [facility]04-[facility]24 NoteHNO ID: [id number] Author: CORETTA MOORE PT Service: ? Author Type: Physical Therapist Type: Progress Notes Filed: 06/14/2023 16:53 Note Text: Episode Visit Count: 2 Therapist That Will Accept/Oversee The Plan Of Care: Coretta Moore Start of Care Date: 06/07/23 Onset Date: 03/28/23 Plan of Care Certification Date: 06/07/23 Next Certification Due Date: 07/12/23 REHABILITATION AND SPORTS THERAPY PHYSICAL THERAPY TREATMENT NOTE ASSESSMENT: Claritza Martin tolerated the session with fatigue and increased symptoms. She demonstrated difficulty with cervical retraction, reporting burning sharp pain with minimal AROM. The patient will continue to benefit from ongoing skilled physical therapy to progress toward set goals. PLAN FOR NEXT VISIT: scapular stabilization with theraband, hold SUBJECTIVE: Pt. reports increased pain at night when laying supine. Lidocaine patch worn at night. Aleve taken before she came to PT today. Patient Goals: reduce pain with work and ADLs. Pain: Pain Pain Level: 2 Pain Location: Neck - Left Description: Stiffness, Burning Pain Level 2: 4 Pain Location 2: Scapula - Left ([place] scapular boarder) Post Treatment Pain Post Treatment Pain Level: 5 Post Treatment Pain Location: Scapula - Left Post Treatment Pain Score 2: 4/10 Post Treatment Pain Location 2: Neck - Left Post Treatment Pain Description 2: Sharp OBJECTIVE MEASURES WITH LEVEL OF FUNCTION: TREATMENT: Therapeutic Exercise: 1: seated cervical retraction 1x10 2: standing cervical retraction to neutral with occiput on ball on wall 1 min (cues to maintain neutral, fwd head posture with 10-15 sec of static hold) 3: *Access Code: [email or web address] URL: [email or web address] Date: 06/14/2023 Prepared by: Coretta Moore Exercises - Doorway Pec Stretch at 60 Degrees Abduction with Arm Straight - 3 x daily - 7 x weekly - 3 sets - 1 reps - 30 hold - Single Arm Doorway Pec Stretch at 90 Degrees Abduction - 3 x daily - 7 x weekly - 3 sets - 1 reps - 30 hold - Seated Cervical Retraction - 2 x daily - 7 x weekly - 4 sets - 10 reps - 1 hold 4: seated scapular circles 30 sec CW and 30 sec CCW 2x each shoulder at 90 elevation of shoulder Skilled Intervention: Patient was educated in proper exercise technique and purpose for exercises. Reviewed and educated patient on additions/changes for home exercise program as above (*). Skilled judgment was used in selection of appropriate interventions. Provided written instruction for home exercise program to facilitate proper performance and compliance. Correct performance of therapeutic exercises was facilitated with verbal, visual, and tactile cuing. Educated patient on rationale for performing exercises in regards to decreasing fatigue , increase ease of ADL, and ROM and function . Patient education as noted. Billing Therapeutic Exercise Treatment Minutes: 40 Skilled Treatment Time Minutes (timed and untimed codes): 40 Total Session Time (minutes): 40 Session Start Time : 1618 Session Stop Time : 1658 Coretta Moore [facility]04-23-2024 History of Present illness Narrative* Coretta Moore PT - 06/07/2023 4:08 PM EDT Program_ID:[id number] Access Code: [email or web address] URL: [email or web address] Date: 06-07-2023 Prepared By: Coretta Moore Program Notes Exercises - Supine Chin Tuck - 2 x daily - 7 x weekly - 4 sets - 10 reps - Seated Scapular Retraction - 2 x daily - 7 x weekly - 2 sets - 20 reps - Seated Gentle Upper Trapezius Stretch - 2 x daily - 7 x weekly - 3 sets - 1 reps * Coretta Moore, PT - 06/07/2023 3:45 PM EDT Images from the original note were not included. Episode Visit Count: 1 Therapist That Will Accept/Oversee The Plan Of Care: Coretta Moore Start of Care Date: 06/07/23 Onset Date: 03/28/23 Plan of Care Certification Date: 06/07/23 Next Certification Due Date: 07/12/23 Patient Identified by Name and Date of : Yes REHABILITATION AND SPORTS THERAPY PHYSICAL THERAPY EVALUATION PLAN OF CARE: Assessment: Claritza Martin presents with diagnosis of s/p cervical spinal fusion that interferes with bending, running, driving, sleeping, lifting, working . She presents with impairments in ADL's, flexibility, independence in exercise, joint mobility, overall function, patient reported outcome measures, posture, range of motion, strength, stress management, symptom management, and tissue tenderness. PROMIS (Patient-Reported Outcomes Measurement Information System) scores were reviewed and identified as a rehabilitation concern. Prognosis for therapy is Good due to: acuteness of condition, current objective clinical presentation, good overall health status . She will benefit from skilled therapy services to meet the goals established for this plan of care as noted below. Goals for Episode of Care: created on 06/07/23 through 07/19/23 Independent in a Home Exercise Program. Patient will decrease pain to 1-2/10 with functional activities to allow patient to improve tolerance for ADLs. Restore pain free cervical ROM to minimal to no limitation grossly to allow for ADLs. Drive with no aggravation of pain/symptoms. Sleep throughout the night without pain/symptoms. Sit 4-6 hours without pain/symptoms to allow for seated work activities. Patient Goals: reduce pain with work and ADLs. Planned Interventions, Frequency, and Duration: Current Frequency: 1x/week Duration: 5 weeks Total Number of Visits Planned: 5 Planned Treatment Interventions: Therapeutic exercise (97437), Neuromuscular re- education (90070), Manual therapy (02897), Therapeutic activities (70219), Self- group home management (32697), Gait Training (08033) PLAN FOR NEXT VISIT: continue supine cervical retraction, add scapular and cervical isometrics Patient demonstrates good understanding of plan of care and treatment. The above goals and plan of care were discussed and agreed upon by patient/family. SUBJECTIVE: for s/p C6-C7 ACDF by Dr. Mariam Weaver. Pt. returned to work 05/23/23. Recent return to FT work status and reports sudden increased pain as of last . Pt. describes radiating symptoms with greater intensity of numbness in the BUE as well as the L anterior shoulder. Pt. was Rx'd a muscle relaxer but is unable to take this during the day due to work. Patient Goals: reduce pain with work and ADLs. 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 has not ran since 2019 Intake Information: Prescription present Previous Treatment: Muscle relaxer Falls Interview: No positive findings with falls interview Red Flags Vertebral Fracture Clinical Reasoning: No identified risk factors Cancer Clinical Reasoning: No identified risk factors. Infection Clinical Reasoning: No identified risk factors. Cervical Arterial Dysfunction: (brief dizziness with drying her hair while the head is inverted) Cervical Arterial Dysfunction Clinical Reasoning: Proceed with caution Cervical Myelopathy Diagnostic Rule: No identified risk factors. Red Flags - Cervical Cancer Clinical Reasoning: No identified risk factors. Infection Clinical Reasoning: No identified risk factors. Cervical Arterial Dysfunction: (brief dizziness with drying her hair while the head is inverted) Cervical Arterial Dysfunction Clinical Reasoning: Proceed with caution Cervical Myelopathy Diagnostic Rule: No identified risk factors. Spine History Symptoms Since Onset: Worsening Pain is Worse Always: Bending, Sitting Pain is Better Always: (reclined) Sleep Affected by Pain: Pain keeps from falling asleep, Pain awakens Pain: Pain Pain Level: (does not rate) Pain Location: Neck - Left Description: Numbness (ring and pinky finger R hand completely numb) Additional Pain Information : Location 2 Pain Level 2: (does not rate) Pain Location 2: Shoulder - Left Description 2: Sharp, Burning Post Treatment Pain Post Treatment Pain Level: 4 Post Treatment Pain Location: Shoulder - Left Post Treatment Pain Description: Sharp Post Treatment Pain Score 2: No Change Post Treatment Pain Location 2: Neck - Left Post Treatment Pain Description 2: Sharp PROMIS Scales 06/05/2023 01/09/2023 Higher is Better Phys Func - Score 36 (moderate dysfunction) 39 (moderate dysfunction) Phys Func - Percentile 8 14 Self-Eff Symptom - Score 35 (Low) Self-Eff Symptom - Percentile 7 T-scores: mean of general population = 50. 5 points is clinically meaningfully difference Percentiles provide an indication of how the patient's score ranks in relation to the general population. Higher percentile rankings indicate better function/quality of life. 50th percentile is the average of the general population and indicates half of respondents had a worse score. OBJECTIVE MEASURES WITH LEVEL OF FUNCTION: Posture / Alignment Posture: Forward head Effects of Posture Correction: no effect Spine Observations L Cervical Spine Palpation Tenderness: Pectoralis minor, Upper trapezius, Levator scapulae, Paraspinals Cervical Spine ROM Cervical ROM : Limitation AROM Cervical Protrusion AROM: Normal Cervical Retraction AROM: Moderate limitation Cervical Flexion AROM: Normal Cervical Extension AROM: Minimal limitation Cervical Side-Bend Right AROM: Major limitation, Produces Cervical Side-Bend Left AROM: Moderate limitation, Produces Cervical Rotation Right AROM: Normal Cervical Rotation Left AROM: Normal Repeated Test Movements - Cervical Cervical RET EXT in lying - Symptoms During: no effect Cervical RET EXT in lying - Symptoms After: no effect UE AROM R UE AROM: grossly WNL L UE AROM: grossly WNL UE Flexibility Flexibility: Upper Trapezius, Pectoral Muscles, Latisimus Dorsi R Upper Trapezius Flexibilty Comments: limited L Upper Trapezius Flexibility Comments: limited L Pectorals Comments: limited R Latissimus Dorsi Flexibility Comments: limited L Latissimus Dorsi Flexibility Comments: limited Education: Education Learning Preferences: Demonstration, Explanation, Performance, Printed Materials Barriers: Acuity of Illness Learning/educational needs: Home exercise program, Plan of Care, Posture, Gait Training Education Provided: Yes, see treatment interventions for education provided Education Provided To: Patient Education Mode/Type: Demonstration, Explanation/Discussion, Performance, Literature/Printed Materials Response to Education/Teach Back: States/Identifies, Return Demonstration TREATMENT: PT Treatment Interventions: Therapeutic Exercise, Self-Usp Management Evaluation Therapeutic Exercise: 1: *Access Code: [email or web address] URL: [email or web address] Date: 06/07/2023 Prepared by: Coretta Wilhelm Exercises - Supine Chin Tuck - 2 x daily - 7 x weekly - 4 sets - 10 reps - 1 hold- Seated Scapular Retraction - 2 x daily - 7 x weekly - 2 sets - 20 reps - 1 hold - Seated Gentle Upper Trapezius Stretch - 2 x daily - 7 x weekly - 3 sets - 1 reps - 30 hold Skilled Intervention: Patient was educated in proper exercise technique and purpose for exercises. Skilled judgment was used in selection of appropriate interventions. Provided written instruction for home exercise program to facilitate proper performance and compliance. Correct performance of therapeutic exercises was facilitated with verbal, visual, and tactile cuing. Educated patient on rationale for performing exercises in regards to decreasing fatigue , increase ease of ADL, and ROM and function . Patient education as noted. Self-Usp Management: 1: discussed cervical spine mobilizer and stabilizer muscles - explained how larger mobilzing muscles can become stiff and sore activing as stabilizers when the neck is weak post - op 2: discussed soreness should be felt in the anterior neck but not pain with exercises 3: discussed scapular and cervical shared muscles and muscle action. 4: postural awareness Skilled Intervention: Skilled judgment in the selection of proper modification for activity of daily living/home management based on clinical presentation, deficits, and needs. Reviewed patient specific diagnosis in relation to activities of daily living/home management. Activity progression based on professional judgement. Moderate verbal cues for maintaining neutral spine alignment. Provided written instruction for home program to facilitate proper performance and compliance. Correct performance of home program was facilitated with verbal, visual, and tactile cueing. Billing * Evaluation Low Complexity: 1 Unit Therapeutic Exercise Treatment Minutes: 10 Self-Care/Home Management Treatment Minutes: 15 Skilled Treatment Time Minutes (timed and untimed codes): 40 Total Session Time (minutes): 45 Session Start Time : 1545 Session Stop Time : 1630 Coretta Moore PT documented in this encounterTr[facility] NoteHNO ID: [id number] Author: CORETTA MOORE PT Service: ? Author Type: Physical Therapist Type: Progress Notes Filed: 06/07/2023 16:23 Note Text: Episode Visit Count: 1 Therapist That Will Accept/Oversee The Plan Of Care: Coretta Moore Start of Care Date: 06/07/23 Onset Date: 03/28/23 Plan of Care Certification Date: 06/07/23 Next Certification Due Date: 07/12/23 Patient Identified by Name and Date of : Yes REHABILITATION AND SPORTS THERAPY PHYSICAL THERAPY EVALUATION PLAN OF CARE: Assessment: Claritza Martin presents with diagnosis of s/p cervical spinal fusion that interferes with bending, running, driving, sleeping, lifting, working . She presents with impairments in ADL's, flexibility, independence in exercise, joint mobility, overall function, patient reported outcome measures, posture, range of motion, strength, stress management, symptom management, and tissue tenderness. PROMIS? (Patient-Reported Outcomes Measurement Information System) scores were reviewed and identified as a rehabilitation concern. Prognosis for therapy is Good due to: acuteness of condition, current objective clinical presentation, good overall health status . She will benefit from skilled therapy services to meet the goals established for this plan of care as noted below. Goals for Episode of Care: created on 06/07/23 through 07/19/23 Independent in a Home Exercise Program. Patient will decrease pain to 1-2/10 with functional activities to allow patient to improve tolerance for ADLs. Restore pain free cervical ROM to minimal to no limitation grossly to allow for ADLs. Drive with no aggravation of pain/symptoms. Sleep throughout the night without pain/symptoms. Sit 4-6 hours without pain/symptoms to allow for seated work activities. Patient Goals: reduce pain with work and ADLs. Planned Interventions, Frequency, and Duration: Current Frequency: 1x/week Duration: 5 weeks Total Number of Visits Planned: 5 Planned Treatment Interventions: Therapeutic exercise (32710), Neuromuscular re-education (47621), Manual therapy (75099), Therapeutic activities (49478), Self-group home management (09051), Gait Training (51582) PLAN FOR NEXT VISIT: continue supine cervical retraction, add scapular and cervical isometrics Patient demonstrates good understanding of plan of care and treatment. The above goals and plan of care were discussed and agreed upon by patient/family. SUBJECTIVE: for s/p C6-C7 ACDF by Dr. Mariam Weaver. Pt. returned to work 05/23/23. Recent return to FT work status and reports sudden increased pain as of last . Pt. describes radiating symptoms with greater intensity of numbness in the BUE as well as the L anterior shoulder. Pt. was Rx'd a muscle relaxer but is unable to take this during the day due to work. Patient Goals: reduce pain with work and ADLs. 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 has not ran since 2019 Intake Information: Prescription present Previous Treatment: Muscle relaxer Falls Interview: No positive findings with falls interview Red Flags Vertebral Fracture Clinical Reasoning: No identified risk factors Cancer Clinical Reasoning: No identified risk factors. Infection Clinical Reasoning: No identified risk factors. Cervical Arterial Dysfunction: (brief dizziness with drying her hair while the head is inverted) Cervical Arterial Dysfunction Clinical Reasoning: Proceed with caution Cervical Myelopathy Diagnostic Rule: No identified risk factors. Red Flags - Cervical Cancer Clinical Reasoning: No identified risk factors. Infection Clinical Reasoning: No identified risk factors. Cervical Arterial Dysfunction: (brief dizziness with drying her hair while the head is inverted) Cervical Arterial Dysfunction Clinical Reasoning: Proceed with caution Cervical Myelopathy Diagnostic Rule: No identified risk factors. Spine History Symptoms Since Onset: Worsening Pain is Worse Always: Bending, Sitting Pain is Better Always: (reclined) Sleep Affected by Pain: Pain keeps from falling asleep, Pain awakens Pain: Pain Pain Level: (does not rate) Pain Location: Neck - Left Description: Numbness (ring and pinky finger R hand completely numb) Additional Pain Information : Location 2 Pain Level 2: (does not rate) Pain Location 2: Shoulder - Left Description 2: Sharp, Burning Post Treatment Pain Post Treatment Pain Level: 4 Post Treatment Pain Location: Shoulder - Left Post Treatment Pain Description: Sharp Post Treatment Pain Score 2: No Change Post Treatment Pain Location 2: Neck - Left Post Treatment Pa (more content not included)...[facility] 06-06-2023 Telephone encounter Note* Telephone Encounter - Alexa Flower RN - 06/06/2023 11:41 AM EDT Had on 03/28/2023: C6-C7 ACDF [facility]04-22-2024 Miscellaneous Notes* Telephone Encounter - Alexa Flower RN - 06/06/2023 11:41 AM EDT Had on 03/28/2023: C6-C7 ACDF documented in this encounterTrumbull [facility]04-05-2024 Miscellaneous Notes* Telephone Encounter - Caterina Hernandez RN - 05/20/2023 12:01 PM EDT Neuro SPINE CARE COORDINATION QUICK NOTE RTW letter completed and sent to pt via [employer] per pt request. * Telephone Encounter - Alana Kay - 05/20/2023 11:15 AM EDT Patient is calling back can return to work on May 23, 2023. 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 She would like the letter put in [employer]. Patient scheduled PT with [facility]. Gave the patient the phone number to schedule her X-ray and visit with Parker Leiva CNP. * Telephone Encounter - Caterina Hernandez RN - 05/20/2023 10:59 AM EDT Neuro SPINE CARE COORDINATION QUICK NOTE Called and left message for pt to return call. Need to know when pt will be returning to work so we can do RTW letter for her. Pt needs to schedule virtual f/u appointment with Parker Leiva for 6 months from now, around Nov 2023, and have Xray prior to appointment. Need to know if pt wants Physical therapy order mailed to her home or faxed to a facility, would need fax number. documented in this encounterTr[facility]ull [facility]04-05-2024 History of Present illness Narrative* Mariam Weaver MD - 05/20/2023 8:51 AM EDT The patient is status post C6 7 ACDF Overall he is doing reasonably well Having some tightness in the posterior right side of her trapezius area Left-sided neurological symptoms seem better States that she has some increased numbness of her right side but is not terribly concerned X-ray showed good position of the bone graft and hardware We will get the patient into an active physical therapy program and have her return to work All restrictions are lifted Follow-up in 6 months virtually Mariam Weaver M.D. 10-minute virtual visit documented in this encounterTr[facility]ull [facility] Center03-08-2024 History of Present illness Narrative* Parker Leiva, [facility] - 04/22/2023 3:00 PM EST SPINE SURGERY FOLLOW UP - VIRTUAL VISIT This is a virtual visit using [employer] Zoom Video Visit. It required patient- provider interaction for the medical decision making as documented below. I have communicated my name and active licensure. The patient's identity and physical location wereverified at the time of this visit. Either the patient or their legal fuels sales representative has been informed of the risks and benefits of -- and alternatives to -- treatment through a remote evaluation andconsents to proceed with the evaluation remotely. SERVICE DATE: April 22, 2023 PREVIOUS SPINAL SURGERY: 06/2019 C5/6 left sided ADR with [facility] SURGERY DATE: 03/28/2023 SURGERY: C6-C7 ACDF SURGEON: Dr. Corbin Weaver PRE-OP SX: left cervical radiculopathy as well as RUE and BLE paraesthesias; neck pain D/c date: 03/29/2023 D/mike to: home Claritza Martin is seen for almost 4 week post operative follow up. Overall doing better I think I am on the mend. Numbness is similar to pre-op Post op medications at present - non opioid analgesic: tylenol PRN - muscle relaxer: muscle relaxer BID VIRTUAL PHYSICAL EXAM: GENERAL APPEARANCE: Well nourished, well developed, and no apparent distress. NEURO PSYCH: Patient oriented to person, place, and time. Mood pleasant. Benign affect. DATA REVIEW [facility] records reviewed ASSESSMENT/PLAN IMPRESSION: Z98.1 S/P cervical spinal fusion G89.18 Acute postoperative pain Claritza Martin is almost 4 weeks s/p C6/7 ACDF. 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 sales leader (8am-12pm) and anticipate RTW daytime caregiver 05/[address] Weaver [letter sent via [employer]; STD paperwork completed and will provider to [facility] to fax/email] Follow up: with Dr Weaver as scheduled 05/19 I spent a total of 22 minutes on the date of the service which included preparing to see the patient, [id number] patient care, completing clinical documentation, obtaining and/or reviewing separately obtained history, performing a medically appropriate examination, counseling and educating the pat ient/family/caregiver, and care coordination (not separately reported). Parker Leiva CNP documented in this encounterTrumbull [facility] Center02-19-2024 Miscellaneous Notes* Telephone Encounter - Caterina Hernandez RN - 04/04/2023 10:23 AM EST Neuro SPINE CARE COORDINATION POST OP FOLLOW UP Spoke to patient who is 7 days post C6-C7 ACDF. Pain is well controlled with pain meds Oxycodone and muscle relaxer Robaxin, Tylenol Incisions is clean, dry, and with glue Ambulatory/Activity: walking well unassisted Additional patient concerns: sore throat Follow up: V V with [facility] 04/01/23 Daily Plan of Care Visit during inpatient stay: no Plan of Care Visit helpful: n/a Additional Notes: pt reported she is feeling better today than last week, throat is not as sore andno white spots. Pt denies difficulty with swallowing and is drinking cold fluids and eating soft foods. Caterina Hernandez RN documented in this encounterTrumbull [facility] Center02-16-2024 Miscellaneous Notes* Telephone Encounter - Alana Kay - 04/01/2023 11:23 AM EST Call received for Mariam Weaver MD regarding Claritza Martin. Caller: Self Patient Identified by Name and : Yes Reason for Call: Returning Phone call from Nurse Is there any additional information the provider should know? Yes She sent picture through mychart of her throat. Last Office Visit: 01/20/2023 Next scheduled appointment: 05/20/2023 Best number to reach caller: [phone] Best time to reach caller: anytime Is it OK to leave a detailed voice message? Yes Alana Kay * Telephone Encounter - Caterina Hernandez RN - 04/01/2023 11:11 AM EST Neuro SPINE CARE COORDINATION QUICK NOTE Called and left message for pt to return call. Pt is 4 days s/p C6-C7 ACDF on 03/28/23. documented in this encounterTrumbull [facility]02-06-2024 History of Present illness Narrative* Harris Huntley LPN - 03/22/2023 10:12 AM EST Neuro SPINE CARE COORDINATION VSEA PRE-OP VISIT Met with patient via [employer] for pre op education. Given both written and verbal instructions re : Skin prep, wound care, pain management and post op restrictions. Provided to patient: [facility] Surgery Guide, Spine Surgery Pre/post op education. Yes Reviewed with patient to report to desk J19 for surgery ? Yes. Reviewed with the patient to call [phone] the day before to get surgery report time? Yes. Patient aware eat nothing after midnight prior to surgery, clear liquids only until 2 hours before report time. Yes. Discussed care post discharge : Self care, Home Health Care ( PT-OT-nurse), and acute rehab. Does patient have transportation to and from surgery ? Yes. Falls Education provided ? Yes Nasal swab to be obtained during PACC. Patient instructed in mupirocin treatment : to begin treatment 5 days prior to surgery if nasal swab positive or if swab not obtained. Questions answered and patient voice(s) understanding via teach back. Physical Therapy : if appropriate Additional Comments : All questions answered. Harris Huntley LPN documented in this encounterTrumbull [facility] Center01-26-2024 History and physical note * Fransisca Messer APRN.JAYANT - 03/11/2023 11:42 AM EST Images from the original note were not included. HISTORY AND PHYSICAL EXAMINATION SERVICE DATE: 03/11/2023 SERVICE TIME: 9:12 AM PRIMARY CARE PHYSICIAN: Darelne Galan CNP Assessment Patient has the following medical conditions which may affect samantha-operative course: MIGRAINE NOS W/O MENTN INTRACTABLE Assessment: otc analgesics as needed RESTLESS LEGS SYNDROME Assessment: controlled on rx ASTHMA UNSPECIFIED Assessment: hx, exercise induced, pt denies any issues for years Former smoker Assessment: social [place] Activity Status Index: METS: Climb a flight of stairs or walk up a hill (5.50 METs) DASI Score: 5.5 Patient denies any chest pain or undue shortness of breath with the above physical activity. Clinical Frailty Scale: 3. Well, with treated comorbid disease STOP-Bang Score: Snores loudly Denies feeling tired, fatigued, or sleepy during the daytime Has not been observed to stop breathing or choking/gasping during sleep Denies having high blood pressure BMI less than or equal to 35 kg/m^2 Patient 50 years old or younger Does not have a large neck Non-male patient STOP-Bang Score: 1 [id number] Score: Age: <65 Sex: female CHF history: No Hypertension history: No Stroke/TIA/thromboembolism history: No Vascular disease history: No Diabetes history: No [id number] Score: 1 ARISCAT Score: Age: <=50 Preoperative SpO2: >=96% Respiratory infection in the last month: No Preoperative anemia: No Surgical incision: peripheral Duration of surgery: 2-3 hrs Emergency procedure: No ARISCAT Score: 16 ANESTHESIA FINDINGS: Intubation History: No history of difficult intubation Significant Anesthesia Considerations: none Airway History: No history of difficult airway I - PHYSICAL EVALUATION AIRWAY Patient intubated: No. Tracheostomy tube not present Mallampati: II. TM distance: >3 FB. Neck ROM: full ROM without neurological symptoms. Mouth opening: adequate. Short neck: no. Thick neck: no Lopez present: no Lip Bite Test: I Microretrognathia/Micronagthia/Recessed Chin: No DENTAL Dental findings: teeth intact. Additional comments: +crown/back. II - ANESTHESIA PLAN Anesthetic Plan: other Beta Luanne Monitoring Plan Post Procedure Analgesic Plan Informed Consent Anesthetic risks, benefits, alternatives, personnel and consent discussed: yes. Patient / Responsible Green Party agrees to proceed: yes Patient / Surrogate agrees to blood products: blood products not planned Discussed the possibility of lip / dental damage: yes Prepared for Surgery: optimally prepared for surgery, pending [see comment]. Labs and EKG CONSULTS: Patient does not require consults for optimization at this time Planned Anesthetic: other anesthesia choice The Following Tests/Procedures Have Been Initiated: Orders Placed This Encounter >CMP Standing Status: Future Number of Occurrences: 1 Standing Expiration Date: 06/10/2023 Type and Screen, 30 day Standing Status: Future Number of Occurrences: 1 Standing Expiration Date: 06/10/2023 Order Specific Question: Hospital of Planned Surgery or Procedure: Answer: [facility] [place] ECG COMPLETE Standing Status: Future Standing Expiration Date: 03/11/2024 REASON FOR VISIT: Claritza Martin is a 42 year old female who is scheduled for Procedure(s): ARTHRODESIS ANT DISC PREP DISCECTOMY OSTEOPHYTECTOMY DECOMPRES S CORD/NERVE ROOT C' BELOW C2 (N/A) ANTERIOR INSTRUMENTATION 2 VERTEBRAL SEGMENTS (N/A) at the request of Dr. Weaver, Mariam Ramos MD for consultation. My final recommendation will be communicated back to the requesting physician by wayof shared medical record or letter. Subjective The patient has the following: ACTIVE PROBLEM LIST RESTLESS LEGS SYNDROME IDIOPATHIC HYPERSOMNIA Unspecified Asthma(493.90) Myalgia and Myositis, Unspecified Migraine, Unspecified, Without Mention of Intractable Migraine Without Mention of Status Migrainosus Allergic Rhinitis, Cause Unspecified Generalized Anxiety Disorder Major Depressive Disorder, Recurrent Episode, Unspecified Lump Or Mass in Breast Midline Low Back Pain With Sciatica Midline Thoracic Back Pain Myofascial Pain Ruq Pain Biliary Colic Former Smoker COVID-19 Immunization Status Overdue - Covid-19 Vaccine () Overdue since 10/15/2022 11/21/2020 Imm Admin: COVID-19 original vaccine, age 12+ yr, monovalent (PFIZER- BIONTECH - PURPLE TOP) 10/24/2020 Imm Admin: COVID-19 original vaccine, age 12+ yr, monovalent (PFIZER- BIONTECH - PURPLE TOP) CHIEF COMPLAINT: Pre-op exam HPI: Claritza Martin is a 42 year old seen for PAC due to scheduled above surgery because of a herniated disc. 01/13/23, Dr. Weaver SUBJECTIVE HISTORY OF PRESENT ILLNESS: Claritza Martin is a 42 year old female presenting with spouse. Pre-op left cervical radic sx PREVIOUS SPINAL SURGERY: 06/2019 C5/6 left sided ADR with [facility] Recalls 6-12 months post op fell well Eventually developed recurrent LLE pain/paraesthesias Dx with ulnar neuropathy 11/2021 Had surgery for this - no better Local ortho doctor told her C6/7 pathology - recommended fusion, no ADR Another opinion recommended C6/7 and C7/T1 ADR PAIN EVALUATION 01/09/2023 2149 Pain Level: 6 Pain Location: Neck Description: Aching;Burning;Dull;Numbness;Radiating;Sharp;Sore;Stiffness;Tingling Duration Units: Months Frequency: Continuous Intervention/Comfort measure: Cold;Heat Pain Radiation: left posterior shoulder, left tricep, down the left arm; neck pain - denies right sided pain + headaches, back of skull radiating fwd + light headedness and imbalance with turning her head Subjective weakness: Yes - generalized Numbness/tingling: BUE, and all left 5 fingers but particularlly pinky and ring finger; LE and feetare numb - very much top of the left foot Imbalance: Yes Falls: No Fine motor impairment: Yes Hx of left ulnar nerve decompression 11/2021 Hx of cancer: : No Hx diabetes: : No. Last HgBA1C HBA1C, Jen (%) Date Value 03/01/2011 5.4 Nicotine status: non smoker Employment status: [employer] in [employer] DERMATOMAL DISTRIBUTION: Left: C8 AMBULATORY STATUS: Independent Community Distances PREVIOUS CONSERVATIVE TREATMENTS: PT Injections > 12 months ago - NEFTALY - hives after for one week Gabapentin 100mg NSAIDS REVIEW OF SYSTEMS: General: No weight loss, malaise or fevers. Neurological: +RLS Positive for: headaches (+migraines, otc analgesics as needed). Negative for: cerebral palsy, CASH POSTER tumor, dementia, impaired sensorium, multiple sclerosis, Parkinson's disease, peripheral neuropathy, seizures, TIA and strokes. Respiratory: +former social smoker. No history of current cough or dyspnea, or pneumonia in the past 6 weeks. No history of respiratory/pulmonary symptoms or problems. Cardiovascular: No history of HTN requiring medication, no history of angina, CHF, OR, cardiac surgery or stents. Denies rest pain, gangrene or revascularization/amputation for PVD. No history of cardiovascular symptoms or problems. GI: No history of GI symptoms or problems. No history of esophageal varices, recent ascites, or ETOH greater than 2 drinks per day. : No history of dysuria, frequency or incontinence, stones or chronic kidney disease. No difficulty urinating, nocturia > 1 time per night or hematuria. HOME HEALTH ADMINISTRATOR: Negative for abnormal vaginal bleeding, abnormal vaginal discharge. Endocrine: No history of diabetes. Has not taken steroids within the past 30 days. No history of endocrinological symptoms or problems. Hematology: No history of bleeding or clotting disorder. Patient is not taking anti-coagulation or platelet medications. No history of hematological symptoms or problems. Oncology: No history of CA metastasis, chemo within 30 days, or radiotherapy within 90 days. No history of oncological symptoms or problems. Psych: No history of psychiatric symptoms or problems. Musculoskeletal: See HPI. Skin: Negative for lesions, rash and itching. PAST MEDICAL HISTORY Diagnosis Date Allergic rhinitis, cause unspecified Generalized anxiety disorder Major depressive disorder, recurrent episode, unspecified Migraine, unspecified, without mention of intractable migraine without mention of status migrainosus COMPLEX - had loss of vision (since returned but blurry at times) - CVA, MS ruled out - right pupilstill often dilated vs. 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 PAST SURGICAL HISTORY Procedure Laterality Date ADENOIDECTOMY PRIMARY <AGE 12 02/14/1986 Adenoidectomy BX BREAST PERC NEED W/GUID 11/24/2012 U/S needle core bx right breast 8 O'clock DILATION & CURETTAGE DX&/THER NONOBSTETRIC 07/15/2006 for miscarriage LAPAROSCOPY SURG CHOLECYSTECTOMY 03/21/2015 Cholecystectomy, lap NEUROPLASTY &/TRANSPOSITION ULNAR NERVE ELBOW Left 11/25/2021 Left ulnar nerve decompression PAST SURGICAL HISTORY OF 04/2020 disc replacement surgery between c5 and c6 STRABISM SURG,PREV EYE SURG,NOT MUSC 1987,1997 eye surgery-left TONSILLECTOMY PRIMARY/SECONDARY <AGE 12 02/14/1986 Tonsillectomy VAGINAL HYSTERECTOMY UTERUS 250 GM/< 02/14/2011 FAMILY HISTORY Problem Relation Age of Onset Arthritis Mother Diabetes Father Hypertension Father Lipids Father Colon Cancer Maternal Grandmother Diabetes Paternal Grandmother Heart Paternal Grandmother Diabetes Paternal Grandfather Ischemic Heart Disease Paternal Grandfather OR and CVA Breast Cancer Maternal Aunt dx age 40's Colon Cancer Paternal Aunt dx age 30's Cancer Other cousin-uterine cancer other (migraine) Brother Cervical Cancer Other maternal cousin Social History Tobacco Use Smoking status: Former Packs/day: 0.25 Years: 8.00 Additional pack years: 0.00 Total pack years: 2.00 Types: Cigarettes Quit date: 2017 Years since quittin.0 Smokeless tobacco: Never Tobacco comments: Smoked occassionally for 5 yrs. Vaping Use Vaping Use: Never used Substance Use Topics Alcohol use: Yes Comment: 1/month Drug use: No Prior to Admission medications as of 03/11/23 1141 Medication Sig Last Dose Taking mupirocin (BACTROBAN) 2 % ointment Apply 1/2 inch ointment with a cotton swab (Q-tip) in each nostril twice daily, start five(5) days prior to surgery. Taking Yes MULTIVITAMIN ORAL Take by mouth once daily. Taking Yes No medication comments found. ALLERGIES Allergen Reactions Cortisone Hives Reaction to injection Seasonal [Other] Objective PHYSICAL EXAM: General: alert and oriented (x3) and healthy appearance. Pertinent negatives noted - not distressed. Skin: normal color, no rash or lesions. HEENT: EOM intact and pupils equal round. Pertinent negatives noted - no carotid bruit. Cardiovascular: regular rate and rhythm, normal S1 and S2, no rub, murmurs, or gallop. Respiratory: normal breath sounds, no wheezes or crackles. No chest wall deformity or tenderness. Abdomen: soft. Pertinent negatives noted - not tender. Extremities: no deformity, no edema or tenderness, no joint swelling or clubbing. Neurological: normal cognition and motor skills. Gait normal. No weakness or sensory deficit. PAIN ASSESSMENT: Pain Pain Level: 5 Pain Location: Neck Description: Sharp Duration Amount of Time: 1 Duration Units: Years Frequency: Continuous Intervention/Comfort measure: Medication, Heat, Cold VITALS: BP 130/82 Pulse 84 Temp (Src) 99.3 (Temporal) Resp 14 Ht 5' 2 (1.58m) Wt 127 lb (57.6kg) SpO2 100% LMP 05/16/2011 BMI 23.22 kg/(m^2). Diagnostic tests reviewed for today's visit: Lab Value Units Date High Low HB 13.0 g/dL 03/11/2023 15.5 11.5 HCT 38.9 % 03/11/2023 46.0 36.0 WBC 5.12 k/uL 03/11/2023 11.00 3.70 PLT 263 k/uL 03/11/2023 400 150 NA 138 mmol/L 03/11/2023 144 136 K 3.9 mmol/L 03/11/2023 5.1 3.7 GLUC 99 mg/dL 03/11/2023 99 74 BUN 13 mg/dL 03/11/2023 21 7 CREAT 0.69 mg/dL 03/11/2023 0.96 0.58 PTSEC No results within date range. INR No results within date range. APTT No results within date range. ALT 20 U/L 03/11/2023 38 7 AST 19 U/L 03/11/2023 35 13 TBILI 0.4 mg/dL 03/11/2023 1.3 0.2 TSH No results within date range. Lab Value Units Date High Low HCGQT No results within date range. UHCG No results within date range. HCG, BODY* No results within date range. Lab Value Units Date High Low ABORHD No results within date range. ABSCREEN No results within date range. HBA1CJen (%) Date Value 03/01/2011 5.4 Recent Results (from the past 8760 hour(s)) ECG COMPLETE Collection Time: 03/11/23 12:44 PM Result Value Ventricular Rate 66 Atrial Rate 66 P-R Interval 122 QRS Duration 82 QT Interval 388 QTC Calculation (Bazett) 406 Calculated P [place] 67 Calculated R [place] 54 Calculated T [place] 42 Impression NORMAL SINUS RHYTHM NORMAL ECG No results found for this or any previous visit (from the past 15443 hour(s)). Instructions Given to Patient: Instructions located in the after visit summary. Patient given verbal and written preop instructions and voices comprehension and compliance. SIGNATURE: Fransisca Messer APRN.CNP PATIENT NAME: Claritza Martin DATE: March 11, 2023 TIME: 11:42 AM PAGER/CONTACT #: documented in this encounterTrumbull [facility]01-26-2024 Instructions* Patient Instructions* Fransisca Messer APRN.CNP - 03/11/2023 11:41 AM EST PATIENT PREOPERATIVE INSTRUCTIONS No ref. provider found has scheduled you for your procedure at this surgery center: [facility] [place] Scheduling Office: [phone] --[address] [place] [address]. Please read below carefully for your personalized instructions. Dietary Restrictions: - No solid food after midnight. - You may have 12 ounces of clear liquids (water, clear juices such as apple juice or gatorade, carbonated beverages, clear tea, black coffee, jello) until 2 hours before scheduled arrival at facility. No red/purple coloring and no creamer/sugar Medications: Unless instructed differently below, stay on all of your medications until your surgery. Approved medications to take the morning of surgery with a sip of water: NONE If you start any new medications after today's visit, please contact the surgeon's office. Blood Thinning Medications: - Stop NSAIDS (Ibuprofen, Advil, Aleve, Motrin, Celebrex, Mobic, etc.) 7 days before surgery, as directed by your surgeon. - Stop Aspirin 7 days before surgery, as directed by your surgeon. - Stop Vitamin E, ALL multi-vitamins, herbals and dietary supplements 7 days before surgery. - You may take Tylenol (Acetaminophen) or any of your pain medications that do not contain aspirin or NSAIDS as needed. Important Reminders: - Candy, mints, and tobacco products are NOT permitted the morning of surgery. - Hearing aids, dentures and glasses may be worn the morning of surgery. - NO jewelry, body piercings, makeup, hairpins or contacts are to be worn the day of surgery. If you develop symptoms such as a fever, cold, or flu, or have other changes to your health within TWO DAYS of scheduled surgery or the morning of surgery, please contact the surgery center above. Personal Belongings: -Please have photo ID and insurance cards. -If you do not have a copy of advance directives on file with us, please bring a copy with you on the day of surgery. - Leave ALL valuables and money at home or with family members. For Outpatient Procedures: - YOU MUST HAVE A RESPONSIBLE BOX MAKER WOOD TAKE YOU HOME. A FURNACE REPAIRER HELPER OR SHADER AND TONER CANNOT BE MADE A RESPONSIBLE BOX MAKER WOOD. - We recommend that a responsible person stays with you overnight to take care of you. - You cannot stay in a hotel alone after outpatient surgery. You will not be permitted to have yoursurgery, if you do not have someone to take care of you. Arrival Time for Surgery: - To obtain your arrival time for surgery, call your physician's office the day before your surgery. - If your surgery is scheduled for Tuesday, call the Tuesday before. Your surgeon s manager garage will tell you what time to call the office. - If you have not reached the departmental manager garage by 5 P.M., call [phone] after 5 P.M. the day before your surgery. Please be aware that emergency situations arise, which may delay or change your surgical time. If this happens, we will notify you as soon as possible and regret any inconvenience. If you already have an Advance Directive, please fax a copy to [phone] or email to for it to be added to your chart. If you do not have an Advance Directive, you can find the appropriate form and more information at [email or web address]. We recommend that youcomplete the Advance Directive form found on the website and bring it with you the day of your surgery. It can be witnessed and scanned into your chart that day. Fransisca Messer APRN.JAYANT documented in this encounterTrumbull [facility] Center12-06-2023 Miscellaneous Notes* Telephone Encounter - Caterina Hernandez RN - 01/19/2023 10:52 AM EST Neuro SPINE CARE COORDINATION SURGERY SCHEDULING Patient accepts surgery date of 03/28/[address] Weaver Planned procedure: C6-C7 ACDF Length of Surgery:2hrs Last Appointment w/ Surgeon: 01/13/2023 Needs f/u appt with surgeon: no HGBA1C: HBA1C [place] (%) Date Value 03/01/2011 5.4 PACC questionnaire: COMPLETED Medications reviewed : Yes. Meds to be stopped prior to surgery : NSAIDS and Vitamins and supplements. Additional pre op clearances needed : none. Any implanted devices : Yes. Cervical artificial disc Transplant History No Patient will get optimization lab work : Blood Management . Questions answered. Patient verbalizes understanding via teach back. Additional comments : pt lives with her Pre op appts: PACC: 03/11/23 at: [facility] Virtual group Nurse Education: wk of 03/21/23 Patient placed on cancellation list for sooner surgery: Yes, pt would like no sooner than February Preoperative Needs Assessment Do you live alone or with someone that can help you? Lives with caregiver Will you have assistance available at home after your surgery to help with physical activities sucha toileting or dressing? Always How many steps do you need to climb to get into your home? 1-10 Once in your home, how many steps do you need to climb to access your bedroom or bathroom? 1-10 Do you use a mobility aid for walking/getting around? (note, if more than one type of aid is used, select the one that is used more frequently) None Anticipated LOS > 5 days: No Significant home social issues or Current history or past history of substance abuse: No Wheelchair baseline, Homebound baseline, Significant gait instability, or History of significant falls: No Thora/lumbar fusion any level planned or 2+ level posterior cervical fusion planned: No Myelopathic or Spine tumor: No Probability of non-home discharge disposition : Low [0.4] Caterina Hernandez RN * Telephone Encounter - Rosy Crop Duster Helper, Mya - 01/14/2023 3:31 PM EST pt would like to schedule surgery. Call back; [phone] documented in this encounterTrumbull Regional Medical Center11-30-2023 Instructions* Patient Instructions* Parker Leiva APRN.CNP - 01/13/2023 2:52 PM EST Have ENT consult report faxed to [phone] VALENTINA Diggs HOW TO SEND US YOUR IMAGES - CT cervical spine Contact the imaging facility where the images were completed and ask if they have PACs (picture archiving and communication system). If they have PACs, request them to send the images directly through their computer via PACs to [facility]. If the location who did your imaging does not have PACs, request a CD with the images. You can upload the images from the CD to [facility] via your home computer. To upload images to the secure [facility] website please click on the following link: [email or web address] and follow the instructions. The other option is to mail the images on CD WITH report for review to: Dr Corbin Macario [address] Mailcode: [address] [place] [address] Once you have sent or uploaded the images, (after uploading, it takes 24-28 hours to be viewable tous), please notify office via phone [phone] or via Dimerest that imaging has been sent so we know to look for it. documented in this encounterTrumbull Regional Medical Center11-30-2023 History of Present illness Narrative* Mariam Weaver MD - 01/13/2023 1:19 PM EST Images from the original note were not included. SPINE SURGERY NEW PATIENT This is an in person visit DATE OF SERVICE: January 13, 2023 This is an in-person visit. REFERRING PROVIDER: SELF SUBJECTIVE HISTORY OF PRESENT ILLNESS: Claritza Martin is a 42 year old female presenting with spouse. Pre-op left cervical radic sx PREVIOUS SPINAL SURGERY: 06/2019 C5/6 left sided ADR with [facility] Recalls 6-12 months post op fell well Eventually developed recurrent LLE pain/paraesthesias Dx with ulnar neuropathy 11/2021 Had surgery for this - no better Local ortho doctor told her C6/7 pathology - recommended fusion, no ADR Another opinion recommended C6/7 and C7/T1 ADR PAIN EVALUATION 01/09/2023 2149 Pain Level: 6 Pain Location: Neck Description: Aching;Burning;Dull;Numbness;Radiating;Sharp;Sore;Stiffness;Tingling Duration Units: Months Frequency: Continuous Intervention/Comfort measure: Cold;Heat Pain Radiation: left posterior shoulder, left tricep, down the left arm; neck pain - denies right sided pain + headaches, back of skull radiating fwd + light headedness and imbalance with turning her head Subjective weakness: Yes - generalized Numbness/tingling: BUE, and all left 5 fingers but particularlly pinky and ring finger; LE and feetare numb - very much top of the left foot Imbalance: Yes Falls: No Fine motor impairment: Yes Hx of left ulnar nerve decompression 11/2021 Hx of cancer: : No Hx diabetes: : No. 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 DERMATOMAL DISTRIBUTION: Left: C8 AMBULATORY STATUS: Independent Community Distances PREVIOUS CONSERVATIVE TREATMENTS: PT Injections > 12 months ago - NEFTALY - hives after for one week Gabapentin 100mg NSAIDS ACTIVE PROBLEM LIST RESTLESS LEGS SYNDROME IDIOPATHIC HYPERSOMNIA Unspecified Asthma(493.90) Myalgia and Myositis, Unspecified Migraine, Unspecified, Without Mention of Intractable Migraine Without Mention of Status Migrainosus Allergic Rhinitis, Cause Unspecified Generalized Anxiety Disorder Major Depressive Disorder, Recurrent Episode, Unspecified Lump Or Mass in Breast Midline Low Back Pain With Sciatica Midline Thoracic Back Pain Myofascial Pain Ruq Pain Biliary Colic PAST MEDICAL HISTORY Diagnosis Date Allergic rhinitis, cause unspecified Generalized anxiety disorder Major depressive disorder, recurrent episode, unspecified Migraine, unspecified, without mention of intractable migraine without mention of status migrainosus COMPLEX - had loss of vision (since returned but blurry at times) - CVA, MS ruled out - right pupilstill often dilated vs. 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 PAST SURGICAL HISTORY Procedure Laterality Date ADENOIDECTOMY PRIMARY <AGE 12 02/14/1986 Adenoidectomy BX BREAST PERC NEED W/GUID 11/24/2012 U/S needle core bx right breast 8 O'clock DILATION & CURETTAGE DX&/THER NONOBSTETRIC 07/15/2006 for miscarriage LAPAROSCOPY SURG CHOLECYSTECTOMY 03/21/2015 Cholecystectomy, lap NEUROPLASTY &/TRANSPOSITION ULNAR NERVE ELBOW Left 11/25/2021 Left ulnar nerve decompression PAST SURGICAL HISTORY OF 04/2020 disc replacement surgery between c5 and c6 STRABISM SURG,PREV EYE SURG,NOT MUSC 1987,1997 eye surgery-left TONSILLECTOMY PRIMARY/SECONDARY <AGE 12 02/14/1986 Tonsillectomy VAGINAL HYSTERECTOMY UTERUS 250 GM/< 02/14/2011 Social History Tobacco Use Smoking status: Former Packs/day: 0.25 Years: 8.00 Additional pack years: 0.00 Total pack years: 2.00 Types: Cigarettes Quit date: 2018 Years since quittin.9 Smokeless tobacco: Never Tobacco comments: Smoked occassionally for 5 yrs. Vaping Use Vaping Use: Never used Substance Use Topics Alcohol use: Yes Comment: 1/month Drug use: No ALLERGIES Allergen Reactions Cortisone Hives Reaction to injection Seasonal [Other] MEDICATIONS: MULTIVITAMIN ORAL Take by mouth once daily. Patient Entered Questionnaires Spine Questions 01/09/2023 Pain Location: Neck Pain Duration: 1 to 5 years Pain over last 6 months: Every day or nearly every day in the past 6 months Symptoms from neck/cervical spine: Yes Employment Status: Working now Involved in law suit/legal claim: No Neck Questionnaires 01/09/2023 Benzel Modified RACHEAL Score 16 (A lower score indicates increased pain and issues.) PROMIS Score Percentiles Physical Health 01/09/2023 Physical Function Percentile 14 Sleep Percentile 21* Fatigue Percentile 24* Pain Interference Percentile 16* PROMIS SOCIAL ROLE SCORE 01/09/2023 Social Role Satisfaction Percentile 42 PROMIS Global Health Scale 12/16/2014 11/17/2021 01/09/2023 Physical Health Percentile 10 78 41 Mental Health Percentile 26* 63 63 Percentiles provide an indication of how the patient's score ranks in relation to the general population. Higher percentile rankings indicate better function/quality of life. 50th percentile is the average of the general population and indicates half of respondents had a worse score. Depression Screening: PHQ-9 11/08/2007 12/16/2014 01/09/2023 Score 7 8 2 PHQ-9 Self-harm Question 11/08/2007 12/16/2014 01/09/2023 Thoughts that you would be better off , or of hurting yourself in some way 0 0 0 PHQ-9 Self-Harm (Item 9) response options: 0 Not at all 1 Several days 2 More than half the days 3 Nearly every day PHQ-9 Levels: 0-4 No to mild depression 5-9 Mild depression 10-14 Moderate depression 15-19 Moderately severe depression 20-27 Severe depression OBJECTIVE: PHYSICAL EXAM Resp 16 Ht 157.5 cm (5' 2) Wt 56.2 kg (124 lb) LMP 05/16/2011 BMI 22.68 kg/m GENERAL APPEARANCE: Well nourished, well developed, and no apparent distress. NEURO PSYCH: Patient oriented to person, place, and time. Mood pleasant. Benign affect. MOTOR: 5/5 in all muscle groups. GAIT: Normal. REFLEXES: +2 to bilateral U/L extremities. LONG TRACT SIGNS: Hoffmans positive on the right. DATA REVIEW [facility] records independently reviewed Images independently reviewed with the patient August 2021 MRI cervical spine REPORT: s/p C5/6 ACDF. No neural compression on report 06/15/2021 EMG left upper extremity:This is an abnormal study. There is electrophysiologic evidence of a chronic, left, C7 radiculopathy. There is no active denervation to suggest ongoing motor axon loss. There is no electrophysiologic evidence of a superimposed median or ulnar neuropathy in the left upper extremity. 10/2022 EMG LUE report: normal 11/2022 MRI cervical spine REPORT: severe C6/7 canal stenosis ASSESSMENT/PLAN M50.223 Herniated nucleus pulposus, C6-7 (primary encounter diagnosis) Z98.890 History of neck surgery M54.12 Left cervical radiculopathy Claritza Martin is a 42 year old female with CC of left cervical radiculopathy as well as RUE and BLE paraesthesias. 06/2019 c5/6 ADR with initial benefit. New MRI with C6/7 disc protrusion and severecord compression Parker Leiva APRN.LOCAL GOVERNMENT LEGISLATOR I reviewed the information obtained and documented by the nurse practitioner. I examined the patient and evaluated all available films and pertinent documents. We discussed the case and I agree with the plans as outlined in this note. Claritza Martin is clinically indicated and wishes to pursue Anterior Cervical Discectomy and Fusion at C6/7 The risks, benefits, and anticipated outcomes of the procedure/treatment/test, the alternatives to the procedure/treatment/test and their risks and benefits, and the roles and tasks of the personnel to be involved were discussed with the patient or the patient s personal fuels sales representative. The patient has elected to schedule surgery at this time or intends to call the office with a surgical date. Shared decision making occurred while obtaining informed consent. Continue with CT tomorrow as scheduled and send for review Send OSH ENT consult notes to assess if right sided approach is an option I spent a total of 45 minutes on the date of the service which included preparing to see the patient, [id number] patient care, completing clinical documentation, and counseling and educating the patient/family/caregiver. SIGNATURE: Mariam Weaver MD PATIENT NAME: Claritza Martin DATE: January 13, 2023 TIME: 1:19 PM PAGER: documented in this encounterTrumbull Regional Medical Center11-21-2022 History of Present illness Narrative* Dave Sepulveda MD - 01/04/2022 8:11 AM EST Dave Sepulveda MD Department of Orthopaedics Orthopaedics [address] [place] [address] Dept: [phone] Dept January 04, 2022 CHIEF COMPLAINT: Post Op of the Left Elbow and 5 weeks 5 days post op Left ulnar nerve decompression. HPI Patient states she stopped wearing compression sleeve 2 weeks ago after her elbow was raw. She has a clicking in her elbow at times. Taking Advil as needed for the pain and is effective. AMB ROOMING INTAKE FLOWSHEET DATA Risk Screening Do you have concerns about personal safety or safety in the home?: No Pain Pain Level: 4 Pain Location: Elbow-Left Description: Aching, Sharp Duration Amount of Time: (Post op) Frequency: Continuous Intervention/Comfort measure: Medication ASSESSMENT: G56.22 Ulnar nerve entrapment at elbow, left (primary encounter diagnosis) SUMMARY/PLAN: She is just shy of 6 weeks from surgery. She is already feeling improvement in the hand. Mild and appropriate discomfort still at the surgical site. She can continue activities as tolerated follow-upas needed. Exam: Healed incision. Good range of motion. Neurovascular exam is grossly intact. Supporting Information Below: Medications: Current Outpatient Medications Medication Sig MULTIVITAMIN ORAL Take by mouth once daily. No current facility-administered medications for this visit. Allergies: Cortisone and Seasonal [Other] Dave Sepulveda MD documented in this encounterTrumbull Regional Medical Center10-24-2022 History of Present illness Narrative* Sarah Wesley PA-C - 12/07/2021 9:03 AM EDT Sarah Wesley PA-C Department of Orthopaedics Orthopaedics [address] [facility] [address] Dept: [phone] Dept December 07, 2021 CHIEF COMPLAINT: Post Op of the Left Elbow and 1 week 5 days post op Left ulnar nerve decompression. ASSESSMENT: G56.22 Ulnar nerve entrapment at elbow, left (primary encounter diagnosis) SUMMARY/PLAN: Patient presents 1 week and 5 days s/p left ulnar nerve decompression. Some 5/10 soreness, taking aleve. We discussed proper hand washing, no soaking of the operative hand. No heavy lifting, pushing or pulling with the operative hand, encourage gentle motion. We discussed scar massage. Follow up asplanned. She is planning to RTW in about 1 week and will call or send message to get letter once she is feels up to returning to work. Exam: Incision site is well approximated without erythema or drainage. Mild edema with some ecchymosis extending down into the forearm. Subjective stiffness of the elbow but can gently flex and extend elbow, subjective numbness in the ulnar two digits. Imaging: Deferred today Ms. Claritza Martin was advised as to contrast therapies and/or to take analgesics/anti-inflammatories as needed and all contraindications were reviewed. Supporting Information Below: Medications: Current Outpatient Medications Medication Sig MULTIVITAMIN ORAL Take by mouth once daily. No current facility-administered medications for this visit. Allergies: Cortisone and Seasonal [Other] This note was partially generated using [employer] voice recognition system, and there may be some incorrect words, spellings, and punctuation that were not noted in checking the note before saving. Sarah Wesley PA-C * Karuna Davis Ma - 12/07/2021 8:29 AM EDT Patient presents with: Left Elbow - Post Op 1 week 5 days post op Left ulnar nerve decompression AMB ROOMING INTAKE FLOWSHEET DATA Risk Screening Do you have concerns about personal safety or safety in the home?: No Pain Pain Level: 5 Pain Location: Elbow-Left Description: Aching, Stabbing, Numbness Duration Amount of Time: (post op) Frequency: Continuous Intervention/Comfort measure: Medication Splint intact and removed for exam. Patient tolerated well. Taking Aleve for the pain and helps sometimes. with patient today. States she still have some numbness in her fingers. documented in this encounterTrumbull Regional Medical Center10-12-2022 NoteHNO ID: [id number] Author: GRAY Alves Service: ? 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 PEELER: Valentin Emanuel APRN.BARKER PEELER Performed by: LAWRENCE Indications and Patient Condition Indications for airway management: anesthesia Preoxygenated: yes anesthesia circuit Patient position: sniffing Method: asleep Cricoid Pressure: No Manual In-Line Stabilization: No Difficult Mask: No Final Airway Details Final airway type: supraglottic airway Number of attempts at approach: 1 Final Supraglottic Airway: i-gel Size 3 Seal Adequate: yes Failed airway: no Unrecognized esophageal intubation: no Airway not difficult SIGNATURE: GRAY Alves PATIENT NAME: Claritza Martin DATE: November 25, 2021 TIME: 1:25 PM CSN: [id number] Miscellaneous Notes* Telephone Encounter - Vandana Amador Ma - 11/19/2021 8:49 AM EDT [facility] paperwork completed and faxed to [facility] HR. Confirmation received. Copy sent for scanning. * Telephone Encounter - Vandana Amador Ma - 11/18/2021 11:24 AM EDT Surgery has been scheduled as requested. [place] paperwork completed and waiting for physician signature. * Telephone Encounter - Vandana Amador Ma - 11/16/2021 8:58 AM EDT Surgical request completed. Post op appointments have been scheduled and mailed to patient. * Telephone Encounter - Vandana Amador Ma - 11/16/2021 8:46 AM EDT Type of form: FMLA Form received via dropped off at appointment. When form is completed, Fax form to [facility] at [phone]. Form has been forwarded to nurse box for completion. Vandana Amador Ma * Telephone Encounter - Vandana Amador Ma - 11/16/2021 8:46 AM EDT Patient to be scheduled for left ulnar nerve decompression at [facility] on 11/25/2021. documented in this encounterTrumbull Regional Medical Center10-05-2022 History and physical note * Bridgette Woods PA-C - 11/18/2021 7:50 PM EDT [facility] This is a virtual visit. It required patient-provider interaction for the medical decision making as documented below. Patient has been identified by name and date of : Yes Reason for call: PACC visit Accompanied by: Self Patient name: Claritza Martin Scheduled Surgery: left DECOMPRESSION NERVE ULNAR ELBOW CHIEF COMPLAINT: Patient presents with: Anesthesia Consult HPI: This is a 40 year old female who presents with ulnar nerve entrapment, left. She reports left elbow pain for the past year, symptoms worsening. She reports numbness and tingling of ring and pinky finger. She had injectio into cervical spine without improvement. ACTIVE PROBLEM LIST RESTLESS LEGS SYNDROME IDIOPATHIC HYPERSOMNIA Unspecified Asthma(493.90) Myalgia and Myositis, Unspecified Migraine, Unspecified, Without Mention of Intractable Migraine Without Mention of Status Migrainosus Allergic Rhinitis, Cause Unspecified Generalized Anxiety Disorder Major Depressive Disorder, Recurrent Episode, Unspecified Lump Or Mass in Breast Midline Low Back Pain With Sciatica Midline Thoracic Back Pain Myofascial Pain Ruq Pain Biliary Colic PAST MEDICAL HISTORY Diagnosis Date Allergic rhinitis, cause unspecified Generalized anxiety disorder Major depressive disorder, recurrent episode, unspecified Migraine, unspecified, without mention of intractable migraine without mention of status migrainosus COMPLEX - had loss of vision (since returned but blurry at times) - CVA, MS ruled out - right pupilstill often dilated vs. 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 PAST SURGICAL HISTORY Procedure Laterality Date ADENOIDECTOMY PRIMARY <AGE 12 02/14/1986 Adenoidectomy BX BREAST PERC NEED W/GUID 11/24/2012 U/S needle core bx right breast 8 O'clock DILATION & CURETTAGE DX&/THER NONOBSTETRIC 07/15/2006 for miscarriage LAPAROSCOPY SURG CHOLECYSTECTOMY 03/21/2015 Cholecystectomy, lap PAST SURGICAL HISTORY OF 04/2020 disc replacement surgery between c5 and c6 STRABISM SURG,PREV EYE SURG,NOT MUSC 1987,1997 eye surgery-left TONSILLECTOMY PRIMARY/SECONDARY <AGE 12 02/14/1986 Tonsillectomy VAGINAL HYSTERECTOMY UTERUS 250 GM/< 02/14/2011 FAMILY HISTORY Problem Relation Age of Onset Arthritis Mother Diabetes Father Hypertension Father Lipids Father Colon Cancer Maternal Grandmother Diabetes Paternal Grandmother Heart Paternal Grandmother Diabetes Paternal Grandfather Ischemic Heart Disease Paternal Grandfather OR and CVA Breast Cancer Maternal Aunt dx age 40's Colon Cancer Paternal Aunt dx age 30's Cancer Other cousin-uterine cancer other (migraine) Brother Cervical Cancer Other maternal cousin Social History: Social History Tobacco Use Smoking status: Former Packs/day: 0.25 Years: 8.00 Pack years: 2.00 Types: Cigarettes Quit date: 2017 Years since quittin.7 Smokeless tobacco: Never Tobacco comments: Smoked occassionally for 5 yrs. Vaping Use Vaping Use: Never used Substance Use Topics Alcohol use: Yes Comment: 1/month Drug use: No MEDICATIONS: Current Inpatient Medications Current Outpatient Medications Medication Sig MULTIVITAMIN ORAL Take by mouth once daily. No current facility-administered medications for this visit. ALLERGIES: ALLERGIES Allergen Reactions Cortisone Hives Reaction to injection Seasonal [Other] REVIEW OF SYSTEMS: PAIN ASSESSMENT: Pain Pain Level: 2 General: No weight loss, malaise or fevers. Neuro: No history of TIA's, stroke, CASH POSTER tumor, impaired sensorium, hemiplegia, paraplegia or quadraplegia.+migraines Respiratory: No history of current cough or dyspnea, or pneumonia in the past 6 weeks. No history of respiratory/pulmonary symptoms or problems. Cardiovascular: No history of HTN requiring medication, no history of angina, CHF, OR, cardiac surgery or stents. Denies rest pain, gangrene or revascularization/amputation for PVD. No history of cardiovascular symptoms or problems. GI: No history of GI symptoms or problems. No history of esophageal varices, recent ascites, or ETOH greater than 2 drinks per day. : No history of dysuria, frequency or incontinence,, stones or chronic kidney disease HOME HEALTH ADMINISTRATOR: Negative for abnormal vaginal bleeding, abnormal vaginal discharge. : Denies, Patient's last menstrual period was 05/16/2011. Endocrine: No history of diabetes. Has not taken steroids within the past 30 days. No history of endocrinological symptoms or problems. Hematology: No history of bleeding or clotting disorder. Pt is not taking anti- coagulation or platelet medications. No history of hematological symptoms or problems. Oncology: No history of CA metastasis, chemo within 30 days, or radiotherapy within 90 days. Has not lost 10% of body wt in 6 months. No history of oncological symptoms or problems. Psych: +anxiety- stable without medication Musculoskeletal: Negative for joint pain or swelling, back pain or muscle pain. Skin: Negative for lesions, rash and itching. PHYSICAL EXAM: VITAL SIGNS: Ht 5' 2 (1.58m) Wt 125 lb (56.7kg) LMP 05/16/2011 BMI 22.86 kg/(m^2). GENERAL: alert and appropriate, in no distress, well-hydrated, well nourished, and happy, smiling, interactive SKIN: no rash noted HEAD: normocephalic, no abnormality or lesion noted EYES: no injection and visual acuity is grossly normal EARS: hearing grossly normal NOSE: external nose normal without rhinorrhea OROPHARYNX: moist mucus membranes NECK: full ROM, no cervical LNs noted RESPIRATORY: breathing non-labored CHEST: equal chest rise with normal respiratory effort HEART: RRR, confirmed with radial pulse exam ABDOMEN: soft and non-tender BACK: back normal in appearance, spine with FROM NEUROLOGIC: no obvious deficit Diagnostic tests reviewed for today's visit: Lab Value Units Date High Low HB No results within date range. HCT No results within date range. WBC No results within date range. PLT No results within date range. NA No results within date range. K No results within date range. GLUC No results within date range. BUN No results within date range. CREAT No results within date range. PTSEC No results within date range. INR No results within date range. APTT No results within date range. ALT No results within date range. AST No results within date range. TBILI No results within date range. TSH No results within date range. Lab Value Units Date High Low HCGQT No results within date range. UHCG No results within date range. HCG, BODY* No results within date range. Lab Value Units Date High Low ABORHD No results within date range. ABSCREEN No results within date range. HBA1C, [place] (%) Date Value 03/01/2011 5.4 No new labs or tests Assessment/Plan No problem-specific Assessment & Plan notes found for this encounter. METS: Climb a flight of stairs or walk up a hill (5.50 METs) Patient denies any chest pain or undue shortness of breath with the above physical activity. ASA Class: 2 ANESTHESIA FINDINGS: Intubation History: No history of difficult intubation Significant Anesthesia Considerations: Postop nausea/vomiting Does well with scopolamine patch Airway Exam: General: Normal appearance Mallampati Score is CLASS I ULBT: Class II - Lower incisors can bite the upper lip below the isabella line Neck: Normal appearance and function, Distance from hyoid to mentum during neck extension is at least 3 finger breaths Mouth: Normal tongue size and Mouth opening greater than 2 finger breaths Dentition: front upper cap Airway History: History of head/neck surgery that distorted airway, including mouth, neck, or theirmobility STOP BANG Score: Criteria: None Score = 0 PLAN This patient is optimally prepared for surgery. CONSULTS: Patient does not require consults for optimization at this time. The Following Tests/Procedures Have Been Initiated: Labs not indicated per [facility] protocol, EKG not indicated per [facility] protocol Planned Anesthetic: Per anesthesia choice Instructions Given to Patient: Patient given verbal instructions and voices comprehension and compliance. Copy sent electronically via My Chart, email, or mobile device. I spent more than 20 minutes [id number] with the patient and over half the time was devoted to counseling and/or coordination of care. SIGNATURE: Bridgette Woods PA-C PATIENT NAME: Claritza Martin DATE: 11/18/2021 TIME: 7:49 PM PAGER/CONTACT #: documented in this [facility] Instructions* Patient Instructions* Bridgette Woods PA-C - 11/18/2021 7:50 PM EDT PATIENT PREOPERATIVE INSTRUCTIONS Dave Sepulveda MD has scheduled you for your procedure at this surgery center: [facility]: [phone] -- [address] [place] [address]. Please read below carefully for your personalized instructions. Dietary Restrictions: - No solid food after midnight. - You may have 12 ounces of clear liquids (water, clear juices such as apple juice or gatorade, carbonated beverages, clear tea, black coffee, jello) until 2 hours before scheduled arrival at facility. Medications: Unless instructed differently below, stay on all of your medications until your surgery. Approved medications to take the morning of surgery with a sip of water: None If you start any new medications after today's visit, please contact the surgeon's office. Blood Thinning Medications: - Stop NSAIDS (Ibuprofen, Advil, Aleve, Motrin, Celebrex, Mobic, etc.) 7 days before surgery, as directed by your surgeon. - Stop Aspirin 7 days before surgery, as directed by your surgeon. - Stop Vitamin E, ALL multi-vitamins, herbals and dietary supplements 7 days before surgery. - You may take Tylenol (Acetaminophen) or any of your pain medications that do not contain aspirin or NSAIDS as needed. Important Reminders: - Candy, mints, and tobacco products are NOT permitted the morning of surgery. - Hearing aids, dentures and glasses may be worn the morning of surgery. - NO jewelry, body piercings, makeup, hairpins or contacts are to be worn the day of surgery. If you develop symptoms such as a fever, cold, or flu, or have other changes to your health within TWO DAYS of scheduled surgery or the morning of surgery, please contact the surgery center above. Personal Belongings: -Please have photo ID and insurance cards. -If you do not have a copy of advance directives on file with us, please bring a copy with you on the day of surgery. - Leave ALL valuables and money at home or with family members. For Outpatient Procedures: - YOU MUST HAVE A RESPONSIBLE BOX MAKER WOOD TAKE YOU HOME. A FURNACE REPAIRER HELPER OR SHADER AND TONER CANNOT BE MADE A RESPONSIBLE BOX MAKER WOOD. - We recommend that a responsible person stays with you overnight to take care of you. - You cannot stay in a hotel alone after outpatient surgery. You will not be permitted to have yoursurgery, if you do not have someone to take care of you. Arrival Time for Surgery: - The Surgery Center or hospital where you are having surgery will call the afternoon before surgery (or Tuesday for Tuesday surgery) with a scheduled arrival time. - If you have not heard by 4 pm, please contact the surgery center above. Please be aware that emergency situations arise, which may delay or change your surgical time. If this happens, we will notify you as soon as possible and regret any inconvenience. If you already have an Advance Directive, please fax a copy to [phone] or email to for it to be added to your chart. If you do not have an Advance Directive, you can find the appropriate form and more information at [email or web address]. We recommend that youcomplete the Advance Directive form found on the website and bring it with you the day of your surgery. It can be witnessed and scanned into your chart that day. Bridgette Woods PA-C documented in this encounterTr[facility]10-[facility]22 History of Present illness Narrative* Sarah Wesley PA-C - 11/16/2021 8:55 AM EDT Sarah Wesley PA-C Department of Orthopaedics Orthopaedics [address] [address] Dept: [phone] Dept November 16, 2021 CHIEF COMPLAINT: Follow Up of the Left Elbow and Ultrasound results left elbow Ms. Claritza Martin is a 40 year old female who presents to discuss the results of her left elbow ultrasound. For above the past year she has been having pain in the medial aspect of her left elbow and numbness in her pinky. Pain is worse when she is sitting at her desk working or at bedtime. She was seeing a provider at [facility] and did participate in nerve gliding exercises and nighttime splinting, neither which were helpful. She is status post C5-C6 disc replacement with the [facility] around 3 years ago. Prior to her surgery she was having pain and weakness in her left arm which did resolve following the procedure. She had a recent cervical MRI which was normal. Her nerveconduction study was positive for a C7 radiculopathy with no mention of ulnar neuropathy. 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 Patient would like to proceed with ulnar nerve decompression at the elbow. We discussed surgical intervention, the patients questions were addressed. The risks, benefits, alternatives and were discussed, patinet understands and wishes to pursue surgical intervention. Ms. Claritza Martin was advised as to contrast therapies and/or to take analgesics/anti-inflammatories as needed and all contraindications were reviewed. OBJECTIVE: Ms. Claritza Martin is a pleasant 40 year old in no apparent distress. Gen:LMP 05/16/2011 nl development, non obese, no deformities ENT: Normocephalic, normal hearing, moist mucosa CV: Pulses:Radial= 2+ and symmetric, capillary refill < 2 secs, no peripheral edema/varicosities Skin: no rash, bruising or lesions. Good turgor. Psych: cooperative and appropriate, alert and oriented x 3, good mood and affect. Musculoskeletal: left Elbow: - There is not bruising about the elbow - The skin is normal - There is not swelling about the elbow - There is not tenderness over the lateral epicondyle - There is not tenderness over the medial epicondyle - There is not tenderness over the olecranon - There is not tenderness over the triceps insertion - There is not tenderness over the radial head - There is no pain with finger flexion and resisted finger extension - Tinels sign over the ulnar nerve is positive - Sensation in the hand is decreased in the ulnar nerve distribution - The distal biceps tendon is is not tender - Cervical ROM does not produce elbow pain - Shoulder ROM does not produce elbow pain - Distal pulses present Imaging: IMPRESSION: MILD NEURITIS OF THE ULNAR NERVE AT THE CUBITAL TUNNEL. Template Worker: ALETA Transcribe Date/Time: Oct 29 2021 7:50A Dictated by : CLIFF MARIANO MD This examination was interpreted and the report reviewed and electronically signed by: CLIFF MARIANO MD on Oct 29 2021 2:22PM EST Results-Findings * * *Final Report* * * DATE OF EXAM: Oct 29 2021 7:43AM [facility]3 - US ELBOW LT / PROCEDURE REASON: Ulnar neuropathy at elbow of left upper extremity * * * * Physician Interpretation * * * * MSK_US LEFT MEDIAL ELBOW ULTRASOUND: CLINICAL INFORMATION: Left fourth and fifth digit numbness and tingling. TECHNIQUE: Garibay-scale real-time ultrasound of the medial elbow with dynamic imaging and power Doppler examination was performed. Images were saved to the permanent image archive. [id number]. COMPARISON: None. FINDINGS: COMMON FLEXOR TENDON: Tendinosis: None. Tearing: None. Power Doppler Examination: Normal. Fascia: Normal in thickness. Medial Epicondyle: No osseous hypertrophic changes. ULNAR COLLATERAL LIGAMENT: Intact. Normal stress/dynamic examination. ULNAR NERVE: Mild enlargement and fascicular prominence. No abrupt caliber change. No subluxation seen on dynamic examination. MEDIAL ELBOW JOINT SPACE: Appears grossly maintained. Supporting Subjective Information Below: Past Surgical History: PAST SURGICAL HISTORY Procedure Laterality Date ADENOIDECTOMY PRIMARY <AGE 12 02/14/1986 Adenoidectomy BX BREAST PERC NEED W/GUID 11/24/2012 U/S needle core bx right breast 8 O'clock DILATION & CURETTAGE DX&/THER NONOBSTETRIC 07/15/2006 for miscarriage LAPAROSCOPY SURG CHOLECYSTECTOMY 03/21/2015 Cholecystectomy, lap PAST SURGICAL HISTORY OF 04/2020 disc replacement surgery between c5 and c6 STRABISM SURG,PREV EYE SURG,NOT MUSC 1987,1997 eye surgery-left TONSILLECTOMY PRIMARY/SECONDARY <AGE 12 02/14/1986 Tonsillectomy VAGINAL HYSTERECTOMY UTERUS 250 GM/< 02/14/2011 Medications: Current Outpatient Medications Medication Sig MULTIVITAMIN ORAL Take by mouth once daily. naproxen (NAPROSYN) 500 mg tablet Take 1 tablet by mouth twice daily as needed. Take with food. cyclobenzaprine (FLEXERIL) 10 mg tablet Take 1 tablet by mouth three times daily as needed. No current facility-administered medications for this visit. Allergies: Seasonal [Other] ROS: General (negative for fatigue, malaise, weight loss/gain) HEENT (negative for headache, earache, recent vision changes, sinus pain, sore throat) Respiratory (no recent shortness of breath, hemoptysis) CV (negative for chest tightness, palpitations) Musculoskeletal (see HPI) Psych (no depression, anxiety) This note was partially generated using [employer] voice recognition system, and there may be some incorrect words, spellings, and punctuation that were not noted in checking the note before saving. Sarah Wesley PA-C * Karuna Davis Ma - 11/16/2021 8:05 AM EDT Patient presents with: Left Elbow - Follow Up Ultrasound results left elbow AMB ROOMING INTAKE FLOWSHEET DATA Risk Screening Do you have concerns about personal safety or safety in the home?: No Pain Pain Level: 3 Pain Location: Elbow-Left Description: Dull, Sharp, Numbness Duration Amount of Time: (Ongoing) Frequency: Continuous Intervention/Comfort measure: Medication Patient states she is continuing to have pain and numbness in her elbow and forearm. Taking Ibuprofen for the pain and does not help. with patient today. Wants to discuss surgery. documented in this encounterTr[facility]-2022 Miscellaneous Notes* Telephone Encounter - Patricia DILLARD - 11/02/2021 12:05 PM EDT Last read by Claritza Martin at 3:03 PM on 10/30/2021. - patient was scheduled [place] Thanks * Telephone Encounter - Sandy Hager - 10/30/2021 2:56 PM EDT Called and left for patient, also sent mychart asking her to call back to schedule. Thanks! documented in this encounterTr[facility]08-15-2022 History of Present illness Narrative* Sarah Wesley PA-C - 09/28/2021 1:32 PM EDT Sarah Wesley PA-C Department of Orthopaedics Orthopaedics [address] [facility] [address] Dept: [phone] Dept September 28, 2021 CHIEF COMPLAINT: New Patient and Pain of the Left Upper Arm Ms. Claritza Martin is a 40 year old female she presents with a 6-month 1 year history of pain in her left medial elbow and numbness in her pinky. Pain is worse when she is sitting at her desk working and also at bedtime. She was seeing a provider at [facility] and did participate in nervegliding exercises and nighttime splinting, neither of which was helpful. The patient is status postC5/C6 disc replacement with the [facility] about 3 years ago. Prior to her surgery she was having pain and weakness in the left arm which she did fully resolve following the procedure. She tells me that she had a recent cervical MRI which was normal, nerve conduction study was positive for C7 ra diculopathy but no mention of ulnar neuropathy. 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 We discussed that the best way to confirm this would be to get a musculoskeletal ultrasoundof the left elbow. Patient would like the order to be faxed to [facility] as it is closer to her home. Ms. Claritza Martin was advised as to contrast therapies and/or to take analgesics/anti-inflammatories as needed and all contraindications were reviewed. OBJECTIVE: Ms. Claritza Martin is a pleasant 40 year old in no apparent distress. Gen:LMP 05/16/2011 nl development, non obese, no deformities ENT: Normocephalic, normal hearing, moist mucosa CV: Pulses:Radial= 2+ and symmetric, capillary refill < 2 secs, no peripheral edema/varicosities Skin: no rash, bruising or lesions. Good turgor. Psych: cooperative and appropriate, alert and oriented x 3, good mood and affect. Musculoskeletal: left Elbow: - There is not bruising about the elbow - The skin is normal - There is not swelling about the elbow - There is not tenderness over the lateral epicondyle - There is not tenderness over the medial epicondyle - There is not tenderness over the olecranon - There is not tenderness over the triceps insertion - There is not tenderness over the radial head - There is no pain with finger flexion and resisted finger extension - Tinels sign over the ulnar nerve is positive - Sensation in the hand is decreased in the ulnar nerve distribution - The distal biceps tendon is is not tender - Extension is to 0 degrees - Extension is non-painful - Flexion is to 160 - Flexion is non-painful - Pronation is to 180 - Pronation is non-painful - Supination is to 180 - Supination is non-painful - Bicep strength is 5/5 - Tricep strength is 5/5 - Cervical ROM does not produce elbow pain - Shoulder ROM does not produce elbow pain - Distal pulses present Imaging: EMG 07/03/2021 Impression:this is an abnormal study. There is electrodiagnostic evidence of a chronic left C7 radiculopathy. There is no active demyelinization to suggest ongoing motor axonal loss. There is no electrodiagnostic evidence of superimposed median or ulnar neuropathy in the left upper extremity. Supporting Subjective Information Below: Past Surgical History: PAST SURGICAL HISTORY Procedure Laterality Date ADENOIDECTOMY PRIMARY <AGE 12 02/14/1986 Adenoidectomy BX BREAST PERC NEED W/GUID 11/24/2012 U/S needle core bx right breast 8 O'clock DILATION & CURETTAGE DX&/THER NONOBSTETRIC 07/15/2006 for miscarriage LAPAROSCOPY SURG CHOLECYSTECTOMY 03/21/2015 Cholecystectomy, lap PAST SURGICAL HISTORY OF 04/2020 disc replacement surgery between c5 and c6 STRABISM SURG,PREV EYE SURG,NOT MUSC 1987,1997 eye surgery-left TONSILLECTOMY PRIMARY/SECONDARY <AGE 12 02/14/1986 Tonsillectomy VAGINAL HYSTERECTOMY UTERUS 250 GM/< 02/14/2011 Medications: Current Outpatient Medications Medication Sig MULTIVITAMIN ORAL Take by mouth once daily. naproxen (NAPROSYN) 500 mg tablet Take 1 tablet by mouth twice daily as needed. Take with food. cyclobenzaprine (FLEXERIL) 10 mg tablet Take 1 tablet by mouth three times daily as needed. No current facility-administered medications for this visit. Allergies: Seasonal [Other] ROS: General (negative for fatigue, malaise, weight loss/gain) HEENT (negative for headache, earache, recent vision changes, sinus pain, sore throat) Respiratory (no recent shortness of breath, hemoptysis) CV (negative for chest tightness, palpitations) Musculoskeletal (see HPI) Psych (no depression, anxiety) This note was partially generated using [employer] voice recognition system, and there may be some incorrect words, spellings, and punctuation that were not noted in checking the note before saving. Sarah Wesley PA-C * Rebecca Bobby RN - 09/28/2021 1:01 PM EDT AMB ROOMING INTAKE FLOWSHEET DATA Risk Screening Do you have concerns about personal safety or safety in the home?: No Pain Pain Level: 2 (2-8/10) Pain Location: Arm-Upper Left Description: Dull, Sharp, Aching, Numbness Duration Amount of Time: 1 Duration Units: Years Frequency: Intermittent Intervention/Comfort measure: Reposition, Relaxation, Splinting (brace, home physical therapy) Patient presents with: Left Upper Arm - New Patient, Pain Patient is here for second opinion regarding LUE pain. Present for 1 year. Has done home exercises,bracing at night, steroid injection to neck without relief. EMG done on 06/15/21. Patient referred darlene who believes pain is coming from ulnar nerve. [facility] Miscellaneous Notes* Telephone Encounter - Karuna Davis Ma - 09/23/2021 4:17 PM EDT Patient returned call and states she had an EMG at [facility] on 06/15/21 on her left elbow. and cervical MRI on 08/21/21. 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 Sent a request to [facility] Medical records. Patient aware if unable to obtain records she will need to contact them. * Telephone Encounter - Karuna Davis Ma - 09/23/2021 1:49 PM EDT Patient has appointment on Thursday 09/28 with Sarah for elbow and shoulder pain. Need to know which laterality she wants to be seen? Left message for patient to call office. [facility] of Past illness Narrative* Problem Noted Date Resolved Date Supervision of other normal 07/16/2008 09/27/2011 Supervision of other high-risk (V23.89) 07/16/2008 09/27/2011 Abdominal pain, generalized 07/16/200809/14 Unspecified symptom associated with female genit al organs 07/16/2008 09/27/2011 Variants of migraine, not el sewhere classified, with intractable migraine, so stated, without mention of status migrainosus 01/11/2007 09/14/2007 Supervision of other normal 08/05/2006 08/18/2006 documented as of this encounter (statuses as of 09/23/2021) [facility] illness Narrative* Problem Noted Date Resolved Date Supervision of other normal 07/16/2008 09/27/2011 Supervision of other high-risk (V23.89) 07/16/2008 09/27/2011 Abdominal pain, generalized 07/16/200809/14 Unspecified symptom associated with female genit al organs 07/16/2008 09/27/2011 Variants of migraine, not el sewhere classified, with intractable migraine, so stated, without mention of status migrainosus 01/11/2007 09/14/2007 Supervision of other normal 08/05/2006 08/18/2006 documented as of this encounter (statuses as of 09/28/2021) [facility] of [facility] illness Narrative* Problem Noted Date Resolved Date Supervision of other normal 07/16/2008 09/27/2011 Supervision of other high-risk (V23.89) 07/16/2008 09/27/2011 Abdominal pain, generalized 07/16/200809/14 Unspecified symptom associated with female genit al organs 07/16/2008 09/27/2011 Variants of migraine, not el sewhere classified, with intractable migraine, so stated, without mention of status migrainosus 01/11/2007 09/14/2007 Supervision of other normal 08/05/2006 08/18/2006 documented as of this encounter (statuses as of 11/02/2021) [facility] Narrative* Problem Noted Date Resolved Date Supervision of other normal 07/16/2008 09/27/2011 Supervision of other high-risk (V23.89) 07/16/2008 09/27/2011 Abdominal pain, generalized 07/16/200809/14 Unspecified symptom associated with female genit al organs 07/16/2008 09/27/2011 Variants of migraine, not el sewhere classified, with intractable migraine, so stated, without mention of status migrainosus 01/11/2007 09/14/2007 Supervision of other normal 08/05/2006 08/18/2006 documented as of this encounter (statuses as of 11/16/2021) [facility] Narrative* Problem Noted Date Resolved Date Supervision of other normal 07/16/2008 09/27/2011 Supervision of other high-risk (V23.89) 07/16/2008 09/27/2011 Abdominal pain, generalized 07/16/200809/14 Unspecified symptom associated with female genit al organs 07/16/2008 09/27/2011 Variants of migraine, not el sewhere classified, with intractable migraine, so stated, without mention of status migrainosus 01/11/2007 09/14/2007 Supervision of other normal 08/05/2006 08/18/2006 documented as of this encounter (statuses as of 11/19/2021) [facility] Narrative* Problem Noted Date Resolved Date Supervision of other normal 07/16/2008 09/27/2011 Supervision of other high-risk (V23.89) 07/16/2008 09/27/2011 Abdominal pain, generalized 07/16/200809/14 Unspecified symptom associated with female genit al organs 07/16/2008 09/27/2011 Variants of migraine, not el sewhere classified, with intractable migraine, so stated, without mention of status migrainosus 01/11/2007 09/14/2007 Supervision of other normal 08/05/2006 08/18/2006 documented as of this encounter (statuses as of 11/19/2021) [facility] Narrative* Problem Noted Date Resolved Date Supervision of other normal 07/16/2008 09/27/2011 Supervision of other high-risk (V23.89) 07/16/2008 09/27/2011 Abdominal pain, generalized 07/16/200809/14 Unspecified symptom associated with female genit al organs 07/16/2008 09/27/2011 Variants of migraine, not el sewhere classified, with intractable migraine, so stated, without mention of status migrainosus 01/11/2007 09/14/2007 Supervision of other normal 08/05/2006 08/18/2006 documented as of this encounter (statuses as of 11/24/2021) [facility] Narrative* Problem Noted Date Resolved Date Supervision of other normal 07/16/2008 09/27/2011 Supervision of other high-risk (V23.89) 07/16/2008 09/27/2011 Abdominal pain, generalized 07/16/200809/14 Unspecified symptom associated with female genit al organs 07/16/2008 09/27/2011 Variants of migraine, not el sewhere classified, with intractable migraine, so stated, without mention of status migrainosus 01/11/2007 09/14/2007 Supervision of other normal 08/05/2006 08/18/2006 documented as of this encounter (statuses as of 12/07/2021) [facility] Narrative* Problem Noted Date Resolved Date Supervision of other normal 07/16/2008 09/27/2011 Supervision of other high-risk (V23.89) 07/16/2008 09/27/2011 Abdominal pain, generalized 07/16/200809/14 Unspecified symptom associated with female genit al organs 07/16/2008 09/27/2011 Variants of migraine, not el sewhere classified, with intractable migraine, so stated, without mention of status migrainosus 01/11/2007 09/14/2007 Supervision of other normal 08/05/2006 08/18/2006 documented as of this encounter (statuses as of 12/11/2021) [facility] Narrative* Problem Noted Date Resolved Date Supervision of other normal 07/16/2008 09/27/2011 Supervision of other high-risk (V23.89) 07/16/2008 09/27/2011 Abdominal pain, generalized 07/16/200809/14 Unspecified symptom associated with female genit al organs 07/16/2008 09/27/2011 Variants of migraine, not el sewhere classified, with intractable migraine, so stated, without mention of status migrainosus 01/11/2007 09/14/2007 Supervision of other normal 08/05/2006 08/18/2006 documented as of this encounter (statuses as of 01/26/2022) [facility] Narrative* Problem Noted Date Resolved Date Supervision of other normal 07/16/2008 09/27/2011 Supervision of other high-risk (V23.89) 07/16/2008 09/27/2011 Abdominal pain, generalized 07/16/200809/14 Unspecified symptom associated with female genit al organs 07/16/2008 09/27/2011 Variants of migraine, not el sewhere classified, with intractable migraine, so stated, without mention of status migrainosus 01/11/2007 09/14/2007 Supervision of other normal 08/05/2006 08/18/2006 documented as of this encounter (statuses as of 03/05/2022) [facility] Narrative* Problem Noted Date Diagnosed Date Resolved Date Supervision of other normal 07/16/2008 09/27/2011 Supervision of other high-ri sk (V23.89) 07/16/2008 09/27/2011 Abdominal pain, generalized 07/16/2008 09/27/2011 Unspecified symptom associat ed with female genital organs 07/16/2008 09/27/2011 Variants of migraine, not el sewhere classified, with intractable migraine, so stated, without mention of status migrainosus 01/11/2007 09/14/2007 Supervision of other normal 08/05/2006 08/18/2006 documented as of this encounter (statuses as of 01/15/2023) [facility] Narrative* Problem Noted Date Diagnosed Date Resolved Date Supervision of other normal 07/16/2008 09/27/2011 Supervision of other high-ri sk (V23.89) 07/16/2008 09/27/2011 Abdominal pain, generalized 07/16/2008 09/27/2011 Unspecified symptom associat ed with female genital organs 07/16/2008 09/27/2011 Variants of migraine, not el sewhere classified, with intractable migraine, so stated, without mention of status migrainosus 01/11/2007 09/14/2007 Supervision of other normal 08/05/2006 08/18/2006 documented as of this encounter (statuses as of 01/19/2023) [facility] Narrative* Problem Noted Date Diagnosed Date Resolved Date Supervision of other normal 07/16/2008 09/27/2011 Supervision of other high-ri sk (V23.89) 07/16/2008 09/27/2011 Abdominal pain, generalized 07/16/2008 09/27/2011 Unspecified symptom associat ed with female genital organs 07/16/2008 09/27/2011 Variants of migraine, not el sewhere classified, with intractable migraine, so stated, without mention of status migrainosus 01/11/2007 09/14/2007 Supervision of other normal 08/05/2006 08/18/2006 documented as of this encounter (statuses as of 03/17/2023) [facility] Narrative* Problem Noted Date Diagnosed Date Resolved Date Supervision of other normal 07/16/2008 09/27/2011 Supervision of other high-ri sk (V23.89) 07/16/2008 09/27/2011 Abdominal pain, generalized 07/16/2008 09/27/2011 Unspecified symptom associat ed with female genital organs 07/16/2008 09/27/2011 Variants of migraine, not el sewhere classified, with intractable migraine, so stated, without mention of status migrainosus 01/11/2007 09/14/2007 Supervision of other normal 08/05/2006 08/18/2006 documented as of this encounter (statuses as of 03/22/2023) [facility] Narrative* Problem Noted Date Diagnosed Date Resolved Date Supervision of other normal 07/16/2008 09/27/2011 Supervision of other high-ri sk (V23.89) 07/16/2008 09/27/2011 Abdominal pain, generalized 07/16/2008 09/27/2011 Unspecified symptom associat ed with female genital organs 07/16/2008 09/27/2011 Variants of migraine, not el sewhere classified, with intractable migraine, so stated, without mention of status migrainosus 01/11/2007 09/14/2007 Supervision of other normal 08/05/2006 08/18/2006 documented as of this encounter (statuses as of 04/01/2023) [facility] Narrative* Problem Noted Date Diagnosed Date Resolved Date Supervision of other normal 07/16/2008 09/27/2011 Supervision of other high-ri sk (V23.89) 07/16/2008 09/27/2011 Abdominal pain, generalized 07/16/2008 09/27/2011 Unspecified symptom associat ed with female genital organs 07/16/2008 09/27/2011 Variants of migraine, not el sewhere classified, with intractable migraine, so stated, without mention of status migrainosus 01/11/2007 09/14/2007 Supervision of other normal 08/05/2006 08/18/2006 documented as of this encounter (statuses as of 04/04/2023) [facility] Narrative* Problem Noted Date Diagnosed Date Resolved Date Supervision of other normal 07/16/2008 09/27/2011 Supervision of other high-ri sk (V23.89) 07/16/2008 09/27/2011 Abdominal pain, generalized 07/16/2008 09/27/2011 Unspecified symptom associat ed with female genital organs 07/16/2008 09/27/2011 Variants of migraine, not el sewhere classified, with intractable migraine, so stated, without mention of status migrainosus 01/11/2007 09/14/2007 Supervision of other normal 08/05/2006 08/18/2006 documented as of this encounter (statuses as of 04/13/2023) [facility] Narrative* Problem Noted Date Diagnosed Date Resolved Date Supervision of other normal 07/16/2008 09/27/2011 Supervision of other high-ri sk (V23.89) 07/16/2008 09/27/2011 Abdominal pain, generalized 07/16/2008 09/27/2011 Unspecified symptom associat ed with female genital organs 07/16/2008 09/27/2011 Variants of migraine, not el sewhere classified, with intractable migraine, so stated, without mention of status migrainosus 01/11/2007 09/14/2007 Supervision of other normal 08/05/2006 08/18/2006 documented as of this encounter (statuses as of 04/22/2023) [facility] Narrative* Problem Noted Date Diagnosed Date Resolved Date Supervision of other normal 07/16/2008 09/27/2011 Supervision of other high-ri sk (V23.89) 07/16/2008 09/27/2011 Abdominal pain, generalized 07/16/2008 09/27/2011 Unspecified symptom associat ed with female genital organs 07/16/2008 09/27/2011 Variants of migraine, not el sewhere classified, with intractable migraine, so stated, without mention of status migrainosus 01/11/2007 09/14/2007 Supervision of other normal 08/05/2006 08/18/2006 documented as of this encounter (statuses as of 05/20/2023) [facility] Narrative* Problem Noted Date Diagnosed Date Resolved Date Supervision of other normal 07/16/2008 09/27/2011 Supervision of other high-ri sk (V23.89) 07/16/2008 09/27/2011 Abdominal pain, generalized 07/16/2008 09/27/2011 Unspecified symptom associat ed with female genital organs 07/16/2008 09/27/2011 Variants of migraine, not el sewhere classified, with intractable migraine, so stated, without mention of status migrainosus 01/11/2007 09/14/2007 Supervision of other normal 08/05/2006 08/18/2006 documented as of this encounter (statuses as of 05/20/2023) [facility] Diagnosis Onset Date Resolution Status Ulnar nerve neuropathy acute [facility] Work Phone: Evaluation note* Diagnosis Onset Date Resolution Status Ulnar nerve neuropathy acute C7 radiculopathy acute 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 [facility] Work Phone: Evaluation note* Diagnosis 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 Numbness of left hand Left elbow pain Pain in joint, upper arm [facility] 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 Numbness of left hand Left elbow pain Pain in joint, upper arm Ulnar nerve entrapment at elbow, left [facility] Diagnosis Pre-op evaluation- Primary Preoperative examination, unspecified Ulnar nerve entrapment at elbow, left [facility] Diagnosis Ulnar nerve entrapment at elbow, left- Primary Ulnar nerve entrapment at elbow, left [facility] Ulnar nerve entrapment at elbow, left- Primary [facility]* Diagnosis Ulnar nerve entrapment at elbow, left- Primary [facility] information [facility] Work Phone: Evaluation [facility]* Diagnosis Herniated nucleus pulposus, C6-7- Primary Displacement of cervical intervertebral disc without myelopathy History of neck surgery Personal history of surgery to other organs Left cervical radiculopathy Brachial neuritis or radiculitis nos [facility]* Diagnosis Pre-operative examination- Primary Preoperative examination, unspecified Migraine, unspecified, without mention of intractable migraine without mention of status migrainosus Insomnia, unspecified type Former smoker Personal history of tobacco use, presenting hazards to health Herniated nucleus pulposus, C6-7 Displacement of cervical intervertebral disc without myelopathy History of neck surgery Personal history of surgery to other organs Left cervical radiculopathy Brachial neuritis or radiculitis nos [facility]* Diagnosis Preoperative examination- Primary Preoperative examination, unspecified Herniated nucleus pulposus, C6-7 Displacement of cervical intervertebral disc without myelopathy History of neck surgery Personal history of surgery to other organs Left cervical radiculopathy Brachial neuritis or radiculitis nos [facility]* Diagnosis S/P cervical spinal fusion Arthrodesis status Acute postoperative pain Other acute postoperative pain [facility] Diagnosis S/P cervical spinal fusion- Primary Arthrodesis status [facility]* Diagnosis S/P cervical spinal fusion Arthrodesis status Acute postoperative pain Other acute postoperative pain [facility] Diagnosis S/P cervical spinal fusion- Primary Arthrodesis status [facility]* Diagnosis Acute cervical radiculopathy- Primary Brachial neuritis or radiculitis nos [facility] Diagnosis S/P cervical spinal fusion- Primary Arthrodesis status [facility] Diagnosis Acute cervical radiculopathy Brachial neuritis or radiculitis nos S/P cervical spinal fusion Arthrodesis status [facility] Diagnosis S/P cervical spinal fusion- Primary Arthrodesis status [facility]* Diagnosis Spinal stenosis of cervical region Spinal stenosis in cervical region S/P cervical spinal fusion Arthrodesis status S/P cervical disc replacement Bilateral hand numbness Disturbance of skin sensation Cervical disc disorder with radiculopathy Brachial neuritis or radiculitis nos [facility]* Diagnosis Acute pain of left shoulder- Primary Acute pain of left shoulder [facility] Diagnosis Acute pain of left shoulder [facility] Diagnosis Cervical spondylosis with myelopathy- Primary S/P cervical spinal fusion Arthrodesis status Acute postoperative pain Other acute postoperative pain Cervical spondylosis with myelopathy S/P cervical spinal fusion Arthrodesis status Acute postoperative pain Other acute postoperative pain Pre-operative examination- Primary Preoperative examination, unspecified Migraine, unspecified, without mention of intractable migraine without mention of status migrainosus Insomnia, unspecified type Former smoker Personal history of tobacco use, presenting hazards to health Acute pain of left shoulder [facility]* Diagnosis Ulnar neuropathy at elbow of left upper extremity Pre-operative examination- Primary Preoperative examination, unspecified Migraine, unspecified, without mention of intractable migraine without mention of status migrainosus Insomnia, unspecified type Former smoker Personal history of tobacco use, presenting hazards to health [facility] this [facility]* Diagnosis Cervical spondylosis with myelopathy- Primary S/P cervical spinal fusion Arthrodesis status Acute postoperative pain Other acute postoperative pain Cervical spondylosis with myelopathy S/P cervical spinal fusion Arthrodesis status Acute postoperative pain Other acute postoperative pain Pre-operative examination- Primary Preoperative examination, unspecified Migraine, unspecified, without mention of intractable migraine without mention of status migrainosus Insomnia, unspecified type Former smoker Personal history of tobacco use, presenting hazards to health Abnormal finding on MRI of brain- Primary Nonspecific (abnormal) findings on radiological and other examination of skull and head Demyelinating disease of central nervous system (HCC) Demyelinating disease of central nervous system, unspecified Generalized weakness Other malaise and fatigue Migratory pain Generalized pain Nonintractable headache, unspecified chronicity pattern, unspecified headache type [facility] Diagnosis Cervical spondylosis with myelopathy- Primary S/P cervical spinal fusion Arthrodesis status Acute postoperative pain Other acute postoperative pain Cervical spondylosis with myelopathy S/P cervical spinal fusion Arthrodesis status Acute postoperative pain Other acute postoperative pain Pre-operative examination- Primary Preoperative examination, unspecified Migraine, unspecified, without mention of intractable migraine without mention of status migrainosus Insomnia, unspecified type Former smoker Personal history of tobacco use, presenting hazards to health Demyelinating disease of central nervous system (HCC) Demyelinating disease of central nervous system, unspecified [facility]* Name Dates Details How to access health informa tion online Indication:Nonsmoker Start:02-May-2019 Instruction Type:Patient Education How to access health informa tion online - Detail Indication:Nonsmoker Start:02-May-2019 Instruction Type:Patient Education Patient Instructions Indication:Nonsmoker Start:02-May-2019 Instruction Type:Provider Instructions for Treatment How to access health informa tion online Indication:Nonsmoker Start:10-Apr-2019 Instruction Type:Patient Education How to access health informa tion online - Detail Indication:Nonsmoker Start:10-Apr-2019 Instruction Type:Patient Education Patient Instructions Indication:Nonsmoker Start:10-Apr-2019 Instruction Type:Provider Instructions for Treatment How to access health informa tion online Indication:Nonsmoker Start:20-Mar-2019 Instruction Type:Patient Education How to access health informa tion online - Detail Indication:Nonsmoker Start:20-Mar-2019 Instruction Type:Patient Education Patient Instructions Indication:Nonsmoker Start:20-Mar-2019 Instruction Type:Provider Instructions for Treatment How to access health informa tion online Indication:Nonsmoker Start:06-Mar-2019 Instruction Type:Patient Education How to access health informa tion online - Detail Indication:Nonsmoker Start:06-Mar-2019 Instruction Type:Patient Education Patient Instructions Indication:Nonsmoker Start:06-Mar-2019 Instruction Type:Provider Instructions for Treatment [facility]; [facility] Work Phone: instructions* Name Dates Details Patient Instructions Indication:Nonsmoker Start:20-Feb-2021 Instruction Type:Provider Instructions for Treatment How to Access Health Informa tion Online using Patient Portal and [employer] Apps Indication:Nonsmoker Start:20-Feb-2021 Instruction Type:Patient Education How to access health informa tion online Indication:Nonsmoker Start:02-May-2019 Instruction Type:Patient Education How to access health informa tion online - Detail Indication:Nonsmoker Start:02-May-2019 Instruction Type:Patient Education Patient Instructions Indication:Nonsmoker Start:02-May-2019 Instruction Type:Provider Instructions for Treatment How to access health informa tion online Indication:Nonsmoker Start:10-Apr-2019 Instruction Type:Patient Education How to access health informa tion online - Detail Indication:Nonsmoker Start:10-Apr-2019 Instruction Type:Patient Education Patient Instructions Indication:Nonsmoker Start:10-Apr-2019 Instruction Type:Provider Instructions for Treatment How to access health informa tion online Indication:Nonsmoker Start:20-Mar-2019 Instruction Type:Patient Education How to access health informa tion online - Detail Indication:Nonsmoker Start:20-Mar-2019 Instruction Type:Patient Education Patient Instructions Indication:Nonsmoker Start:20-Mar-2019 Instruction Type:Provider Instructions for Treatment How to access health informa tion online Indication:Nonsmoker Start:06-Mar-2019 Instruction Type:Patient Education How to access health informa tion online - Detail Indication:Nonsmoker Start:06-Mar-2019 Instruction Type:Patient Education Patient Instructions Indication:Nonsmoker Start:06-Mar-2019 Instruction Type:Provider Instructions for Treatment [facility] Work Phone: instructions* Name Dates Details Patient Instructions Indication:Nonsmoker Start:20-Feb-2021 Instruction Type:Provider Instructions for Treatment How to Access Health Informa tion Online using Patient Portal and [employer] Apps Indication:Nonsmoker Start:20-Feb-2021 Instruction Type:Patient Education How to access health informa tion online Indication:Nonsmoker Start:02-May-2019 Instruction Type:Patient Education How to access health informa tion online - Detail Indication:Nonsmoker Start:02-May-2019 Instruction Type:Patient Education Patient Instructions Indication:Nonsmoker Start:02-May-2019 Instruction Type:Provider Instructions for Treatment How to access health informa tion online Indication:Nonsmoker Start:10-Apr-2019 Instruction Type:Patient Education How to access health informa tion online - Detail Indication:Nonsmoker Start:10-Apr-2019 Instruction Type:Patient Education Patient Instructions Indication:Nonsmoker Start:10-Apr-2019 Instruction Type:Provider Instructions for Treatment How to access health informa tion online Indication:Nonsmoker Start:20-Mar-2019 Instruction Type:Patient Education How to access health informa tion online - Detail Indication:Nonsmoker Start:20-Mar-2019 Instruction Type:Patient Education Patient Instructions Indication:Nonsmoker Start:20-Mar-2019 Instruction Type:Provider Instructions for Treatment How to access health informa tion online Indication:Nonsmoker Start:06-Mar-2019 Instruction Type:Patient Education How to access health informa tion online - Detail Indication:Nonsmoker Start:06-Mar-2019 Instruction Type:Patient Education Patient Instructions Indication:Nonsmoker Start:06-Mar-2019 Instruction Type:Provider Instructions for Treatment [facility] Work Phone: Instructions* Name Dates Details Patient Instructions Indication:Nonsmoker Start:06-Mar-2021 Instruction Type:Provider Instructions for Treatment How to Access Health Informa tion Online using Patient Portal and [employer] Apps Indication:Nonsmoker Start:06-Mar-2021 Instruction Type:Patient Education Patient Instructions Indication:Nonsmoker Start:20-Feb-2021 Instruction Type:Provider Instructions for Treatment How to Access Health Informa tion Online using Patient Portal and [employer]rd [employer] Apps Indication:Nonsmoker Start:20-Feb-2021 Instruction Type:Patient Education How to access health informa tion online Indication:Nonsmoker Start:02-May-2019 Instruction Type:Patient Education How to access health informa tion online - Detail Indication:Nonsmoker Start:02-May-2019 Instruction Type:Patient Education Patient Instructions Indication:Nonsmoker Start:02-May-2019 Instruction Type:Provider Instructions for Treatment How to access health informa tion online Indication:Nonsmoker Start:10-Apr-2019 Instruction Type:Patient Education How to access health informa tion online - Detail Indication:Nonsmoker Start:10-Apr-2019 Instruction Type:Patient Education Patient Instructions Indication:Nonsmoker Start:10-Apr-2019 Instruction Type:Provider Instructions for Treatment How to access health informa tion online Indication:Nonsmoker Start:20-Mar-2019 Instruction Type:Patient Education How to access health informa tion online - Detail Indication:Nonsmoker Start:20-Mar-2019 Instruction Type:Patient Education Patient Instructions Indication:Nonsmoker Start:20-Mar-2019 Instruction Type:Provider Instructions for Treatment How to access health informa tion online Indication:Nonsmoker Start:06-Mar-2019 Instruction Type:Patient Education How to access health informa tion online - Detail Indication:Nonsmoker Start:06-Mar-2019 Instruction Type:Patient Education Patient Instructions Indication:Nonsmoker Start:06-Mar-2019 Instruction Type:Provider Instructions for Treatment [facility]; [facility] Work Phone: Instructions* Name Dates Details Patient Instructions Indication:Nonsmoker Start:20-Mar-2021 Instruction Type:Provider Instructions for Treatment How to Access Health Informa tion Online using Patient Portal and [employer]rd [employer] Apps Indication:Nonsmoker Start:20-Mar-2021 Instruction Type:Patient Education Patient Instructions Indication:Nonsmoker Start:06-Mar-2021 Instruction Type:Provider Instructions for Treatment How to Access Health Informa tion Online using Patient Portal and [employer]rd [employer] Apps Indication:Nonsmoker Start:06-Mar-2021 Instruction Type:Patient Education Patient Instructions Indication:Nonsmoker Start:20-Feb-2021 Instruction Type:Provider Instructions for Treatment How to Access Health Informa tion Online using Patient Portal and [employer]rd [employer] Apps Indication:Nonsmoker Start:20-Feb-2021 Instruction Type:Patient Education How to access health informa tion online Indication:Nonsmoker Start:02-May-2019 Instruction Type:Patient Education How to access health informa tion online - Detail Indication:Nonsmoker Start:02-May-2019 Instruction Type:Patient Education Patient Instructions Indication:Nonsmoker Start:02-May-2019 Instruction Type:Provider Instructions for Treatment How to access health informa tion online Indication:Nonsmoker Start:10-Apr-2019 Instruction Type:Patient Education How to access health informa tion online - Detail Indication:Nonsmoker Start:10-Apr-2019 Instruction Type:Patient Education Patient Instructions Indication:Nonsmoker Start:10-Apr-2019 Instruction Type:Provider Instructions for Treatment How to access health informa tion online Indication:Nonsmoker Start:20-Mar-2019 Instruction Type:Patient Education How to access health informa tion online - Detail Indication:Nonsmoker Start:20-Mar-2019 Instruction Type:Patient Education Patient Instructions Indication:Nonsmoker Start:20-Mar-2019 Instruction Type:Provider Instructions for Treatment How to access health informa tion online Indication:Nonsmoker Start:06-Mar-2019 Instruction Type:Patient Education How to access health informa tion online - Detail Indication:Nonsmoker Start:06-Mar-2019 Instruction Type:Patient Education Patient Instructions Indication:Nonsmoker Start:06-Mar-2019 Instruction Type:Provider Instructions for Treatment [facility]; [facility] Work Phone: Instructions* Name Dates Details Patient Instructions Indication:BMI 23.0-23.9, adult Start:17-Dec-2022 Instruction Type:Provider Instructions for Treatment How to Access Health Informa tion Online using Patient Portal and [employer]rd [employer] Apps Indication:BMI 23.0-23.9, adult Start:17-Dec-2022 Instruction Type:Patient Education Patient Instructions Indication:Nonsmoker Start:20-Mar-2021 Instruction Type:Provider Instructions for Treatment How to Access Health Informa tion Online using Patient Portal and [employer]rd [employer] Apps Indication:Nonsmoker Start:20-Mar-2021 Instruction Type:Patient Education Patient Instructions Indication:Nonsmoker Start:06-Mar-2021 Instruction Type:Provider Instructions for Treatment How to Access Health Informa tion Online using Patient Portal and [employer]rd [employer] Apps Indication:Nonsmoker Start:06-Mar-2021 Instruction Type:Patient Education Patient Instructions Indication:Nonsmoker Start:20-Feb-2021 Instruction Type:Provider Instructions for Treatment How to Access Health Informa tion Online using Patient Portal and [employer]rd [employer] Apps Indication:Nonsmoker Start:20-Feb-2021 Instruction Type:Patient Education How to access health informa tion online Indication:Nonsmoker Start:02-May-2019 Instruction Type:Patient Education How to access health informa tion online - Detail Indication:Nonsmoker Start:02-May-2019 Instruction Type:Patient Education Patient Instructions Indication:Nonsmoker Start:02-May-2019 Instruction Type:Provider Instructions for Treatment How to access health informa tion online Indication:Nonsmoker Start:10-Apr-2019 Instruction Type:Patient Education How to access health informa tion online - Detail Indication:Nonsmoker Start:10-Apr-2019 Instruction Type:Patient Education Patient Instructions Indication:Nonsmoker Start:10-Apr-2019 Instruction Type:Provider Instructions for Treatment How to access health informa tion online Indication:Nonsmoker Start:20-Mar-2019 Instruction Type:Patient Education How to access health informa tion online - Detail Indication:Nonsmoker Start:20-Mar-2019 Instruction Type:Patient Education Patient Instructions Indication:Nonsmoker Start:20-Mar-2019 Instruction Type:Provider Instructions for Treatment How to access health informa tion online Indication:Nonsmoker Start:06-Mar-2019 Instruction Type:Patient Education How to access health informa tion online - Detail Indication:Nonsmoker Start:06-Mar-2019 Instruction Type:Patient Education Patient Instructions Indication:Nonsmoker Start:06-Mar-2019 Instruction Type:Provider Instructions for Treatment [facility]; [facility] Work Phone: reason for referral (narrative)* Diagnostic Procedure Only (Routine) - Pending Review Specialty Diagnoses / Procedures Referred By Tiffanie alfaro Referred To Contact US IMAGING Diagnoses Ulnar neuropathy at elbow of left upper extremity Procedures US ELBOW LEFT US LMTD JOINT/OTH NONVASC XTR STRUX R-T W/IMG Sarah Wesley PA-C [address] [place] [address] Us Imaging Referral ID Status Reason Start Date Expiration Date Visits Requested Visits Authorized [id number] Pending Review Auto-Generat ed Referral 09/28/2021 10/28/2022 1 1 [facility] for referral (narrative)* Outpatient Procedure (Routine) - Pending Review Specialty Diagnoses / Procedures Referred By Tiffanie alfaro Ref[facility] Diagnoses Pre-operative examination Procedures ECG COMPLETE ECG ROUTINE ECG W/LEAST 12 LDS W/I&R Fransisca Messer APRN.LOCAL GOVERNMENT LEGISLATOR [address] [place] [address] [facility] [place] [address] [place] [place] [id number] Referral ID Status Reason Start Date Expiration Date Visits Requested Visits Authorized [id number] Pending Review Auto-Generat ed Referral 03/11/2023 03/10/2024 1 1 [facility] for referral (narrative)* Diagnostic Procedure Only (Routine) - Pending Review Specialty Diagnoses / Procedures Referred By Contac t Referred To Contact XR IMAGING Diagnoses S/P cervical spinal fusion Procedures XR CERV GENERAL 2V AP/LAT RADEX SPINE CERVICAL 2 OR 3 VIEWS Mariam Weaver MD [address] [place] [address] Xr Imaging [facility]95 Referral ID Status Reason Start Date Expiration Date Visits Requested Visits Authorized [id number] Pending Review Auto-Generat ed Referral 05/20/2023 06/18/2024 1 1 * Physical Therapy (Routine) - Authorized Specialty Diagnoses / Procedures Referred By Contac t Referred To Contact [facility] Diagnoses S/P cervical spinal fusion Procedures CONSULT TO PHYSICAL THERAPY PHYSICAL THERAPY EVALUATION HIGH COMPLEX 45 MINS Mariam Weaver MD [address] [place] [id number] [facility] [place] [address] [place] [address] Referral ID Status Reason Start Date Expiration Date Visits Requested Visits Authorized [id number] Authorized Auto-Generat ed Referral 02/14/2023 02/14/2024 30 30 [facility] for referral (narrative)* Diagnostic Procedure Only (Urgent) - Closed Specialty Diagnoses / Procedures Referred By Contac t Referred To Contact XR IMAGING Diagnoses Acute pain of left shoulder Procedures XR SHOULDER GENERAL 3V OR MORE AP/TRUE AP/OTHER LEFT RADEX SHOULDER COMPLETE MINIMUM 2 VIEWS Coretta Parkinson, PHLEBOTOMY PROGRAM COORDINATOR.LOCAL GOVERNMENT LEGISLATOR [address] [place] [address] [place] [address] Referral ID Status Reason Start Date Expiration Date V isits Requested Visits Authorized [id number] Closed Auto-Generate d Referral 08/04/2023 09/02/2024 1 1 [facility] for referral (narrative)* Diagnostic Procedure Only (Routine) - Closed Specialty Diagnoses / Procedures Referred By Contac t Referred To Contact US IMAGING Diagnoses Ulnar neuropathy at elbow of left upper extremity Procedures US ELBOW LEFT US LMTD JOINT/OTH NONVASC XTR STRUX R-T W/IMG Sarah Wesley PA-C [address] [place] [address] [place] [address] Referral ID Status Reason Start Date Expiration Date V isits Requested Visits Authorized [id number] Closed Auto-Generate d Referral 09/28/2021 10/28/2022 1 1 [facility] for referral (narrative)No reason for [facility]: Reason for visit Narrative* Diagnostic Procedure Only (Routine) - Closed Specialty Diagnoses / Procedures Referred By Contac t Referred To Contact XR IMAGING Diagnoses Acute cervical radiculopathy S/P cervical spinal fusion Procedures XR CERV OTHER 4V AP/LAT/FLX/EXT RADEX SPINE CERVICAL 4 OR 5 VIEWS Parker Leiva PHLEBOTOMY PROGRAM COORDINATOR.LOCAL GOVERNMENT LEGISLATOR [address] [place] [address] [place] [address] Referral ID Status Reason Start Date Expiration Date V isits Requested Visits Authorized [id number] Closed Auto-Generate d Referral 06/17/2023 07/16/2024 1 1 [facility] for visit Narrative* Diagnostic Procedure Only (Urgent) - Closed Specialty Diagnoses / Procedures Referred By Contac t Referred To Contact XR IMAGING Diagnoses Acute pain of left shoulder Procedures XR SHOULDER GENERAL 3V OR MORE AP/TRUE AP/OTHER LEFT RADEX SHOULDER COMPLETE MINIMUM 2 VIEWS Coretta Parkinson APRN.LOCAL GOVERNMENT LEGISLATOR [address] [place] [address] Xr Imaging [facility] Referral ID Status Reason Start Date Expiration Date V isits Requested Visits Authorized [id number] Closed Auto-Generate d Referral 08/04/2023 09/02/2024 1 1 [facility] for visit Narrative* Diagnostic Procedure Only (Routine) - Closed Specialty Diagnoses / Procedures Referred By Tiffanie t Referred To Contact US IMAGING Diagnoses Ulnar neuropathy at elbow of left upper extremity Procedures US ELBOW LEFT US LMTD JOINT/OTH NONVASC XTR STRUX R-T W/IMG Sarah Wesley PA-C [address] [place] [address] Us Imaging [facility] Referral ID Status Reason Start Date Expiration Date V isits Requested Visits Authorized [id number] Closed Auto-Generate d Referral 09/28/2021 10/28/2022 1 1 [facility] for visit Narrative* MRI/CT (Routine) - Closed Specialty Diagnoses / Procedures Referred By Tiffanie t Referred To Contact MR IMAGING Diagnoses Demyelinating disease of central nervous system (HCC) Procedures MRI THORACIC SPINE WO/W IVCON MRI SPINAL CANAL THORACIC W/O & W/CONTR Angel Thakur MD [address] [place] [address] Phone: tel: fax: MR IMAGING [facility]95 Referral ID Status Reason Start Date Expiration Date V isits Requested Visits Authorized [id number] Closed Auto-Generate d Referral 05/11/2024 06/10/2025 1 1 [facility] Family History No Family History Records FoundUnknown Family Member Name Dates Details Brother 1 Comments:DM Status:Active Cancer Comments:Family Members In G eneral. Status:Active Father Comments:DM2, HTN, High chol Status:Active Maternal Grandfather Comments:Emphysema. Status:Active Maternal Grandmother Comments: from co nuvia cancer Status:Active Mother Comments:arthritis Status:Active Paternal Grandfather Comments:DM Status:Active Paternal Grandmother Comments:DM, had heart cath Status:Active Unknown Family Member Name Dates Details Brother 1 Comments:DM Status:Active Cancer Comments:Family Members In eneral. Status:Active Father Comments:DM2, HTN, High chol Status:Active Maternal Grandfather Comments:Emphysema. Status:Active Maternal Grandmother Comments: from co nuvia cancer Status:Active Mother Comments:arthritis Status:Active Paternal Grandfather Comments:DM Status:Active Paternal Grandmother Comments:DM, had heart cath Status:Active Unknown Family Member Name Dates Details Brother 1 Comments:DM Status:Active Cancer Comments:Family Members In eneral. Status:Active Father Comments:DM2, HTN, High chol Status:Active Maternal Grandfather Comments:Emphysema. Status:Active Maternal Grandmother Comments: from co nuvia cancer Status:Active Mother Comments:arthritis Status:Active Paternal Grandfather Comments:DM Status:Active Paternal Grandmother Comments:DM, had heart cath Status:Active Unknown Family Member Name Dates Details Brother 1 Comments:DM Status:Active Cancer Comments:Family Members In eneral. Status:Active Father Comments:DM2, HTN, High chol Status:Active Maternal Grandfather Comments:Emphysema. Status:Active Maternal Grandmother Comments: from co nuvia cancer Status:Active Mother Comments:arthritis Status:Active Paternal Grandfather Comments:DM Status:Active Paternal Grandmother Comments:DM, had heart cath Status:Active Unknown Family Member Name Dates Details Brother 1 Comments:DM Status:Active Cancer Comments:Family Members In eneral. Status:Active Father Comments:DM2, HTN, High chol Status:Active Maternal Grandfather Comments:Emphysema. Status:Active Maternal Grandmother Comments: from co nuvia cancer Status:Active Mother Comments:arthritis Status:Active Paternal Grandfather Comments:DM Status:Active Paternal Grandmother Comments:DM, had heart cath Status:Active Unknown Family Member Name Dates Details Brother 1 Comments:DM Status:Active Cancer Comments:Family Members In eneral. Status:Active Father Comments:DM2, HTN, High chol Status:Active Maternal Grandfather Comments:Emphysema. Status:Active Maternal Grandmother Comments: from co nuvia cancer Status:Active Mother Comments:arthritis Status:Active Paternal Grandfather Comments:DM Status:Active Paternal Grandmother Comments:DM, had heart cath Status:Active Unknown Family Member Name Dates Details Brother 1 Comments:DM Status:Active Cancer Comments:Family Members In G eneral. Status:Active Father Comments:DM2, HTN, High chol Status:Active Maternal Grandfather Comments:Emphysema. Status:Active Maternal Grandmother Comments: from co nuvia cancer Status:Active Mother Comments:arthritis Status:Active Paternal Grandfather Comments:DM Status:Active Paternal Grandmother Comments:DM, had heart cath Status:Active Unknown Family Member Name Dates Details Brother 1 Comments:DM Status:Active Cancer Comments:Family Members In eneral. Status:Active Father Comments:DM2, HTN, High chol Status:Active Maternal Grandfather Comments:Emphysema. Status:Active Maternal Grandmother Comments: from co nuvia cancer Status:Active Mother Comments:arthritis Status:Active Paternal Grandfather Comments:DM Status:Active Paternal Grandmother Comments:DM, had heart cath Status:Active Unknown Family Member Name Dates Details Brother 1 Comments:DM Status:Active Cancer Comments:Family Members In eneral. Status:Active Father Comments:DM2, HTN, High chol Status:Active Maternal Grandfather Comments:Emphysema. Status:Active Maternal Grandmother Comments: from co nuvia cancer Status:Active Mother Comments:arthritis Status:Active Paternal Grandfather Comments:DM Status:Active Paternal Grandmother Comments:DM, had heart cath Status:Active Relationship Condition Age at Onset Recorded Date/T lois father Diabetes mellitus Unknown Hypertension Unknown brother Diabetes mellitus Unknown aunt Malignant neoplasm of breast Unknown Unknown Family Member Name Dates Details Brother 1 Comments:DM Status:Active Cancer Comments:Family Members In eneral. Status:Active Father Comments:DM2, HTN, High chol Status:Active Maternal Grandfather Comments:Emphysema. Status:Active Maternal Grandmother Comments: from co nuvia cancer Status:Active Mother Comments:arthritis Status:Active Paternal Grandfather Comments:DM Status:Active Paternal Grandmother Comments:DM, had heart cath Status:Active Relationship Condition Age at Onset Recorded Date/T lois father Diabetes mellitus Unknown Hypertension Unknown brother Diabetes mellitus Unknown aunt Malignant neoplasm of breast Unknown mother Osteoarthritis Unknown Instructions Name Dates Details How to access health informa tion online Indication:Nonsmoker Start:02-May-2019 Instruction Type:Patient Education How to access health informa tion online - Detail Indication:Nonsmoker Start:02-May-2019 Instruction Type:Patient Education Patient Instructions Indication:Nonsmoker Start:02-May-2019 Instruction Type:Provider Instructions for Treatment How to access health informa tion online Indication:Nonsmoker Start:10-Apr-2019 Instruction Type:Patient Education How to access health informa tion online - Detail Indication:Nonsmoker Start:10-Apr-2019 Instruction Type:Patient Education Patient Instructions Indication:Nonsmoker Start:10-Apr-2019 Instruction Type:Provider Instructions for Treatment How to access health informa tion online Indication:Nonsmoker Start:20-Mar-2019 Instruction Type:Patient Education How to access health informa tion online - Detail Indication:Nonsmoker Start:20-Mar-2019 Instruction Type:Patient Education Patient Instructions Indication:Nonsmoker Start:20-Mar-2019 Instruction Type:Provider Instructions for Treatment How to access health informa tion online Indication:Nonsmoker Start:06-Mar-2019 Instruction Type:Patient Education How to access health informa tion online - Detail Indication:Nonsmoker Start:06-Mar-2019 Instruction Type:Patient Education Patient Instructions Indication:Nonsmoker Start:06-Mar-2019 Instruction Type:Provider Instructions for Treatment Name Dates Details How to access health informa tion online Indication:Nonsmoker Start:02-May-2019 Instruction Type:Patient Education How to access health informa tion online - Detail Indication:Nonsmoker Start:02-May-2019 Instruction Type:Patient Education Patient Instructions Indication:Nonsmoker Start:02-May-2019 Instruction Type:Provider Instructions for Treatment How to access health informa tion online Indication:Nonsmoker Start:10-Apr-2019 Instruction Type:Patient Education How to access health informa tion online - Detail Indication:Nonsmoker Start:10-Apr-2019 Instruction Type:Patient Education Patient Instructions Indication:Nonsmoker Start:10-Apr-2019 Instruction Type:Provider Instructions for Treatment How to access health informa tion online Indication:Nonsmoker Start:20-Mar-2019 Instruction Type:Patient Education How to access health informa tion online - Detail Indication:Nonsmoker Start:20-Mar-2019 Instruction Type:Patient Education Patient Instructions Indication:Nonsmoker Start:20-Mar-2019 Instruction Type:Provider Instructions for Treatment How to access health informa tion online Indication:Nonsmoker Start:06-Mar-2019 Instruction Type:Patient Education How to access health informa tion online - Detail Indication:Nonsmoker Start:06-Mar-2019 Instruction Type:Patient Education Patient Instructions Indication:Nonsmoker Start:06-Mar-2019 Instruction Type:Provider Instructions for Treatment Name Dates Details How to access health informa tion online Indication:Nonsmoker Start:02-May-2019 Instruction Type:Patient Education How to access health informa tion online - Detail Indication:Nonsmoker Start:02-May-2019 Instruction Type:Patient Education Patient Instructions Indication:Nonsmoker Start:02-May-2019 Instruction Type:Provider Instructions for Treatment How to access health informa tion online Indication:Nonsmoker Start:10-Apr-2019 Instruction Type:Patient Education How to access health informa tion online - Detail Indication:Nonsmoker Start:10-Apr-2019 Instruction Type:Patient Education Patient Instructions Indication:Nonsmoker Start:10-Apr-2019 Instruction Type:Provider Instructions for Treatment How to access health informa tion online Indication:Nonsmoker Start:20-Mar-2019 Instruction Type:Patient Education How to access health informa tion online - Detail Indication:Nonsmoker Start:20-Mar-2019 Instruction Type:Patient Education Patient Instructions Indication:Nonsmoker Start:20-Mar-2019 Instruction Type:Provider Instructions for Treatment How to access health informa tion online Indication:Nonsmoker Start:06-Mar-2019 Instruction Type:Patient Education How to access health informa tion online - Detail Indication:Nonsmoker Start:06-Mar-2019 Instruction Type:Patient Education Patient Instructions Indication:Nonsmoker Start:06-Mar-2019 Instruction Type:Provider Instructions for Treatment Summary Purpose Advance Directives No Advanced Directives Records Found Advance Directive Response Recorded Date/ Time Advance Directives No March 19, 2015 12:18pm Living Will No October 01 8 3:50pm Power of Osteopathy Doctor No October 01 018 3:50pm Advance Directive Response Recorded Date/ Time Advance Directives No March 19, 2015 11:18am Living Will No October 01 8 2:50pm Power of Osteopathy Doctor No [place] [address], 2 018 2:50pm Advance Directive Response Recorded Date/ Time Advance Directives No March 19, 2015 12:18pm Chief Complaint and Reason for Visit Chief Complaint GOITER LEFT THYROID FNA CERVICAL SPINE xray LT ULNAR NERVE NEUROPATHY LT ULNAR NERVE NEUROPATHY CERVICAL SPINE Reason for Visit Ulnar nerve neuropat hy Chief Complaint CERVICAL SPINE xray LT ULNAR NERVE NEUROPATHY LT ULNAR NERVE NEUROPATHY CERVICAL SPINE cervical spine LEFT ELBOW xray ARM NUMBNESS/TINGLING Reason for Visit Ulnar nerve neuropat hy C7 radiculopathy Ulnar nerve neuropathy Ulnar nerve neuropathy Chief Complaint NECK/RX HERE XRAY Nontoxic single thyroid nodule Chief Complaint NECK/RX HERE XRAY Nontoxic single thyroid nodule CERVICAL SPINE DISPLACEMENT Chief Complaint Nontoxic single thyr oid nodule CERVICAL SPINE DISPLACEMENT Chief Complaint Admit Date NUMBNESS EXTREMITIES AND FACE HX OF NECK SX April 05, 2024 3:24pm Other disorders of nervous system May 07, 2024 7:34am Reason for Visit Admit Date Neurologic disorder April 05, 2024 3:24pm Cervical spinal stenosis due to adjacent segment disease after fusion procedure April 05, 2024 3:24pm Chief Complaint Admit Date NUMBNESS EXTREMITIES AND FACE HX OF NECK SX April 05, 2024 3:24pm Other disorders of nervous system May 07, 2024 7:34am [employer] PPW SENT May 18, 2024 9:1 8am 2 mo fu June 01, 2024 9:2 7am CERVICAL SPINE June 22, 2024 9:23am Room 1 June 22, 2024 9:47am ACUTE SURG CLEARANCE July 11, 2024 11:2 3am Reason for Visit Admit Date Neurologic disorder April 05, 2024 3:24pm Cervical spinal stenosis due to adjacent segment disease after fusion procedure April 05, 2024 3:24pm Encounter to establish care May 18, 2 025 9:18am Neurologic disorder May 18, 2024 9:18 am Preventative health care May 18, 2024 9:18am Neuropathy May 18, 2024 9:18 am Cervical spinal stenosis due to adjacent segment disease after fusion procedure June 01, 2024 9:27am Neuropathy June 01, 2024 9:2 7am H/O neck surgery June 01, 2024 9:2 7am Cervical myelopathy with cervical radicu lopathy June 22, 2024 9:23am Fusion of spine, cervical region June 9:23am S/P cervical disc replacement June 22, 2 025 9:23am Chief Complaint Admit Date NUMBNESS EXTREMITIES AND FACE HX OF NECK SX April 05, 2024 3:24pm Other disorders of nervous system May 07, 2024 7:34am [employer] PPW SENT May 18, 2024 9:1 8am 2 mo fu June 01, 2024 9:2 7am CERVICAL SPINE June 22, 2024 9:23am Room 1 June 22, 2024 9:47am ACUTE SURG CLEARANCE July 11, 2024 11:2 3am PREOP July 19, 2024 2:08p m cervical spine July 27, 2024 1:24 pm Reason for Visit Admit Date Neurologic disorder April 05, 2024 3:24pm Cervical spinal stenosis due to adjacent segment disease after fusion procedure April 05, 2024 3:24pm Encounter to establish care May 18 025 9:18am Neurologic disorder May 18, 2024 9:18 am Preventative health care May 18, 2024 9:18am Neuropathy May 18, 2024 9:18 am Cervical spinal stenosis due to adjacent segment disease after fusion procedure June 01, 2024 9:27am Neuropathy June 01, 2024 9:2 7am H/O neck surgery June 01, 2024 9:2 7am Cervical myelopathy with cervical radicu lopathy June 22, 2024 9:23am Fusion of spine, cervical region June 9:23am S/P cervical disc replacement June 22 025 9:23am Pre-op exam July 11, 2024 11:23 am Reason for Referral Specialty Diagnoses / Procedures Referred By Tiffanie alfaro Referred To Contact MR IMAGING Diagnoses Spinal stenosis of cervical region S/P cervical spinal fusion S/P cervical disc replacement Bilateral hand numbness Cervical disc disorder with radiculopathy Procedures MRI CERVICAL SPINE WO IVCON MRI SPINAL CANAL CERVICAL W/O CONTRAST MATRL Parker Leiva, PHLEBOTOMY PROGRAM COORDINATOR.LOCAL GOVERNMENT LEGISLATOR [address] [place] [address] [place] [address] Referral ID Status Reason Start Date Expiration Date V isits Requested Visits Authorized [id number] Closed Auto-Generate d Referral 06/27/2023 07/26/2024 1 1 Specialty Diagnoses / Procedures Referred By Contac t Referred To Contact Orthopedics Diagnoses Acute pain of left shoulder Procedures CONSULT PANEL TO ORTHOPAEDICS OFFICE/OUTPATIENT NEW HIGH MDM 60 MINUTES Coretta Parkinson APRN.LOCAL GOVERNMENT LEGISLATOR [address] [place] [address] Referral ID Status Reason Start Date Expiration Date Visits Requested Visits Authorized [id number] Authorized PCP Requested Referral 08/04/2023 08/03/2024 1 1 Specialty Diagnoses / Procedures Referred By Contac t Referred To Contact XR IMAGING Diagnoses Acute pain of left shoulder Procedures XR SHOULDER GENERAL 3V OR MORE AP/TRUE AP/OTHER LEFT RADEX SHOULDER COMPLETE MINIMUM 2 VIEWS Coretta Parkinson APRN.LOCAL GOVERNMENT LEGISLATOR [address] [place] [address] [place] [address] Referral ID Status Reason Start Date Expiration Date V isits Requested Visits Authorized [id number] Closed Auto-Generate d Referral 08/04/2023 09/02/2024 1 1 Specialty Diagnoses / Procedures Referred By Contac t Referred To Contact [facility] Diagnoses Acute pain of left shoulder Procedures CONSULT TO PHYSICAL THERAPY PHYSICAL THERAPY EVALUATION HIGH COMPLEX 45 MINS Laney Carroll PA-C [address] [place] [address] [facility] [address] [place] [address] Referral ID Status Reason Start Date Expiration Date Visits Requested Visits Authorized [id number] Pending Review Auto-Generat ed Referral 08/04/2023 08/03/2024 1 1 Additional Source Comments INFORMATION SOURCE (unrecogn ized section and content) DATE CREATED AUTHOR 03/08/2020 [facility] DATE CREATED AUTHOR AUTHOR'S ORGANIZ ATION 12/12/2021 [facility] DATE CREATED AUTHOR AUTHOR'S ORGANIZ ATION 05/26/2024 [facility] DATE CREATED AUTHOR AUTHOR'S ORGANIZ ATION 07/31/2024 [facility] Goals (unrecognized section and content) Goals may be documented in a n alternate sectionGoals may be documented in an alternate sectionGoals may be documented in an alternate sectionGoals may be documented in an alternate sectionGoals may be documented in an alternate sectionGoals may be documented in an alternate sectionGoals may be documented in an alternate sectionGoals may be documented in an alternate section Source Comments (unrecognize d section and content) In the event this informatio n is protected by the Federal Confidentiality of Alcohol and Drug Abuse Patient Records regulations: The Federal rules restrict any use of the information to criminally investigate or prosecute any alcohol or drug abuse patient.[facility] Center[facility] the event this information is protected by the Federal Confidentiality of Alcohol and Drug Abuse Patient Records regulations: The Federal rules restrict any use of the information to criminally investigate or prosecute any alcohol or drug abuse patient.[facility] CenterIn the event this information is protected by the Federal Confidentiality of Alcohol and Drug Abuse Patient Records regulations: The Federal rules restrict any use of the information to criminally investigate or prosecute any alcohol or drug abuse patient.[facility] CenterIn the event this information is protected by the Federal Confidentiality of Alcohol and Drug Abuse Patient Records regulations: The Federal rules restrict any use of the information to criminally investigate or prosecute any alcohol or drug abuse patient.[facility] CenterIn the event this information is protected by the Federal Confidentiality of Alcohol and Drug Abuse Patient Records regulations: The Federal rules restrict any use of the information to criminally investigate or prosecute any alcohol or drug abuse patient.[facility] CenterIn the event this information is protected by the Federal Confidentiality of Alcohol and Drug Abuse Patient Records regulations: The Federal rules restrict any use of the information to criminally investigate or prosecute any alcohol or drug abuse patient.[facility] CenterIn the event this information is protected by the Federal Confidentiality of Alcohol and Drug Abuse Patient Records regulations: The Federal rules restrict any use of the information to criminally investigate or prosecute any alcohol or drug abuse patient.[facility] CenterIn the event this information is protected by the Federal Confidentiality of Alcohol and Drug Abuse Patient Records regulations: The Federal rules restrict any use of the information to criminally investigate or prosecute any alcohol or drug abuse patient.[facility] CenterIn the event this information is protected by the Federal Confidentiality of Alcohol and Drug Abuse Patient Records regulations: The Federal rules restrict any use of the information to criminally investigate or prosecute any alcohol or drug abuse patient.[facility] CenterIn the event this information is protected by the Federal Confidentiality of Alcohol and Drug Abuse Patient Records regulations: The Federal rules restrict any use of the information to criminally investigate or prosecute any alcohol or drug abuse patient.[facility] CenterIn the event this information is protected by the Federal Confidentiality of Alcohol and Drug Abuse Patient Records regulations: The Federal rules restrict any use of the information to criminally investigate or prosecute any alcohol or drug abuse patient.[facility] CenterIn the event this information is protected by the Federal Confidentiality of Alcohol and Drug Abuse Patient Records regulations: The Federal rules restrict any use of the information to criminally investigate or prosecute any alcohol or drug abuse patient.[facility] CenterIn the event this information is protected by the Federal Confidentiality of Alcohol and Drug Abuse Patient Records regulations: The Federal rules restrict any use of the information to criminally investigate or prosecute any alcohol or drug abuse patient.[facility] CenterIn the event this information is protected by the Federal Confidentiality of Alcohol and Drug Abuse Patient Records regulations: The Federal rules restrict any use of the information to criminally investigate or prosecute any alcohol or drug abuse patient.[facility] CenterIn the event this information is protected by the Federal Confidentiality of Alcohol and Drug Abuse Patient Records regulations: The Federal rules restrict any use of the information to criminally investigate or prosecute any alcohol or drug abuse patient.[facility]In the event this information is protected by the Federal Confidentiality of Alcohol and Drug Abuse Patient Records regulations: The Federal rules restrict any use of the information to criminally investigate or prosecute any alcohol or drug abuse patient.[facility] CenterIn the event this information is protected by the Federal Confidentiality of Alcohol and Drug Abuse Patient Records regulations: The Federal rules restrict any use of the information to criminally investigate or prosecute any alcohol or drug abuse patient.[facility] CenterIn the event this information is protected by the Federal Confidentiality of Alcohol and Drug Abuse Patient Records regulations: The Federal rules restrict any use of the information to criminally investigate or prosecute any alcohol or drug abuse patient.[facility] CenterIn the event this information is protected by the Federal Confidentiality of Alcohol and Drug Abuse Patient Records regulations: The Federal rules restrict any use of the information to criminally investigate or prosecute any alcohol or drug abuse patient.[facility] CenterIn the event this information is protected by the Federal Confidentiality of Alcohol and Drug Abuse Patient Records regulations: The Federal rules restrict any use of the information to criminally investigate or prosecute any alcohol or drug abuse patient.[facility] CenterIn the event this information is protected by the Federal Confidentiality of Alcohol and Drug Abuse Patient Records regulations: The Federal rules restrict any use of the information to criminally investigate or prosecute any alcohol or drug abuse patient.[facility] CenterIn the event this information is protected by the Federal Confidentiality of Alcohol and Drug Abuse Patient Records regulations: The Federal rules restrict any use of the information to criminally investigate or prosecute any alcohol or drug abuse patient.[facility] CenterIn the event this information is protected by the Federal Confidentiality of Alcohol and Drug Abuse Patient Records regulations: The Federal rules restrict any use of the information to criminally investigate or prosecute any alcohol or drug abuse patient.[facility] CenterIn the event this information is protected by the Federal Confidentiality of Alcohol and Drug Abuse Patient Records regulations: The Federal rules restrict any use of the information to criminally investigate or prosecute any alcohol or drug abuse patient.[facility] CenterIn the event this information is protected by the Federal Confidentiality of Alcohol and Drug Abuse Patient Records regulations: The Federal rules restrict any use of the information to criminally investigate or prosecute any alcohol or drug abuse patient.[facility] CenterIn the event this information is protected by the Federal Confidentiality of Alcohol and Drug Abuse Patient Records regulations: The Federal rules restrict any use of the information to criminally investigate or prosecute any alcohol or drug abuse patient.[facility] CenterIn the event this information is protected by the Federal Confidentiality of Alcohol and Drug Abuse Patient Records regulations: The Federal rules restrict any use of the information to criminally investigate or prosecute any alcohol or drug abuse patient.[facility] CenterIn the event this information is protected by the Federal Confidentiality of Alcohol and Drug Abuse Patient Records regulations: The Federal rules restrict any use of the information to criminally investigate or prosecute any alcohol or drug abuse patient.[facility] CenterIn the event this information is protected by the Federal Confidentiality of Alcohol and Drug Abuse Patient Records regulations: The Federal rules restrict any use of the information to criminally investigate or prosecute any alcohol or drug abuse patient.[facility] CenterIn the event this information is protected by the Federal Confidentiality of Alcohol and Drug Abuse Patient Records regulations: The Federal rules restrict any use of the information to criminally investigate or prosecute any alcohol or drug abuse patient.[facility] CenterIn the event this information is protected by the Federal Confidentiality of Alcohol and Drug Abuse Patient Records regulations: The Federal rules restrict any use of the information to criminally investigate or prosecute any alcohol or drug abuse patient.[facility] CenterIn the event this information is protected by the Federal Confidentiality of Alcohol and Drug Abuse Patient Records regulations: The Federal rules restrict any use of the information to criminally investigate or prosecute any alcohol or drug abuse patient.[facility] CenterIn the event this information is protected by the Federal Confidentiality of Alcohol and Drug Abuse Patient Records regulations: The Federal rules restrict any use of the information to criminally investigate or prosecute any alcohol or drug abuse patient.[facility] CenterIn the event this information is protected by the Federal Confidentiality of Alcohol and Drug Abuse Patient Records regulations: The Federal rules restrict any use of the information to criminally investigate or prosecute any alcohol or drug abuse patient.[facility] CenterIn the event this information is protected by the Federal Confidentiality of Alcohol and Drug Abuse Patient Records regulations: The Federal rules restrict any use of the information to criminally investigate or prosecute any alcohol or drug abuse patient.[facility] CenterIn the event this information is protected by the Federal Confidentiality of Alcohol and Drug Abuse Patient Records regulations: The Federal rules restrict any use of the information to criminally investigate or prosecute any alcohol or drug abuse patient.[facility] CenterIn the event this information is protected by the Federal Confidentiality of Alcohol and Drug Abuse Patient Records regulations: The Federal rules restrict any use of the information to criminally investigate or prosecute any alcohol or drug abuse patient.[facility] CenterIn the event this information is protected by the Federal Confidentiality of Alcohol and Drug Abuse Patient Records regulations: The Federal rules restrict any use of the information to criminally investigate or prosecute any alcohol or drug abuse patient.[facility] CenterIn the event this information is protected by the Federal Confidentiality of Alcohol and Drug Abuse Patient Records regulations: The Federal rules restrict any use of the information to criminally investigate or prosecute any alcohol or drug abuse patient.[facility] Reason for Visit (unrecogniz ed section and content) Reason Comments Physical Therapy Specialty Diagnoses / Procedures Referred By Contac t Referred To Contact [facility] Diagnoses S/P cervical spinal fusion Procedures CONSULT TO PHYSICAL THERAPY PHYSICAL THERAPY EVALUATION HIGH COMPLEX 45 MINS Mariam Weaver MD [address] [facility] [address] [place] [address] [facility] [address] [place] [address] Referral ID Status Reason Start Date Expiration Date Visits Requested Visits Authorized [id number] Authorized Auto-Generat ed Referral 02/14/2023 02/14/2024 30 30 Reason Comments Chart prep Reason Comments New Patient Pain Reason Comments Follow Up Ultrasound results left elbow Reason Comments Anesthesia Consult Reason Comments Schedule Surgery FMLA Paperwork Reason Comments Post Op 1 week 5 days post op Left ulnar nerve d ecompression Reason Comments Post Op 5 weeks 5 days post op Left ulnar nerve decompression Reason Comments Neck Pain Numbness Reason Comments Schedule Surgery Reason Comments Consult Reason Onset Date Comments Preop Education Class 03/22/2023 Reason Comments Transition Of Care Reason Comments Post Op Specialty Diagnoses / Procedures Referred By Contac t Referred To Contact Diagnoses S/P cervical spinal fusion Acute postoperative pain Procedures PROVIDER ORDERED FOLLOW UP OFFICE/OUTPATIENT NEW HIGH MDM 60 MINUTES Parker Leiva APRN.LOCAL GOVERNMENT LEGISLATOR [address] [place] [address] Referral ID Status Reason Start Date Expiration Date V isits Requested Visits Authorized [id number] Closed PCP Requested Referral 04/25/2023 04/10/2024 1 1 Reason Comments Follow Up Reason Comments PT Eval Specialty Diagnoses / Procedures Referred By Contac t Referred To Contact MR IMAGING Diagnoses Spinal stenosis of cervical region S/P cervical spinal fusion S/P cervical disc replacement Bilateral hand numbness Cervical disc disorder with radiculopathy Procedures MRI CERVICAL SPINE WO IVCON MRI SPINAL CANAL CERVICAL W/O CONTRAST Parker Richardson, PHLEBOTOMY PROGRAM COORDINATOR.LOCAL GOVERNMENT LEGISLATOR [address] [place] [address] [place] [address] Referral ID Status Reason Start Date Expiration Date V isits Requested Visits Authorized [id number] Closed Auto-Generate d Referral 06/27/2023 07/26/2024 1 1 Reason Comments Neck Pain L side shoulder and upper back pain x6 days, had cervical fusion in March, bowling made pain worse Reason Comments New Specialty Diagnoses / Procedures Referred By Tiffanie t Referred To Contact Orthopedics Diagnoses Acute pain of left shoulder Procedures CONSULT PANEL TO ORTHOPAEDICS OFFICE/OUTPATIENT NEW HIGH [facility] 60 MINUTES Coretta Parkinson, PHLEBOTOMY PROGRAM COORDINATOR.LOCAL GOVERNMENT LEGISLATOR [address] [place] [address] Referral ID Status Reason Start Date Expiration Date V isits Requested Visits Authorized [id number] Closed PCP Requested Referral 08/04/2023 08/03/2024 1 1 Reason Comments New Patient Evaluation Care Teams (unrecognized sec tion and content) Corporate Treasurer Relationship Specialty Start Date End Date Darlene Galan, LOCAL GOVERNMENT LEGISLATOR [address] [facility] [address] [place] [address] PCP - General Internal Medicine 03/16/21 Corporate Treasurer Relationship Specialty Start Date End Date AngeliaDarlene, LOCAL GOVERNMENT LEGISLATOR [address] [facility] [address] [place] [address] PCP - General Internal Medicine 03/16/21 Corporate Treasurer Relationship Specialty Start Date End Date Angelia Darlene Feliz, LOCAL GOVERNMENT LEGISLATOR [address] [facility] [address] [place] [address] PCP - General Internal Medicine 03/16/21 Corporate Treasurer Relationship Specialty Start Date End Date Angelia Darlene Feliz LOCAL GOVERNMENT LEGISLATOR [address] [facility] [address] [place] [address] PCP - General Internal Medicine 03/16/21 Corporate Treasurer Relationship Specialty Start Date End Date Darlene Galan, LOCAL GOVERNMENT LEGISLATOR [address] [facility] [address] [place] [address] PCP - General Internal Medicine 03/16/21 Corporate Treasurer Relationship Specialty Start Date End Date Darlene Galan, LOCAL GOVERNMENT LEGISLATOR [address] [facility] [address] [place] [address] PCP - General Internal Medicine 03/16/21 Corporate Treasurer Relationship Specialty Start Date End Date Darlene Galan, LOCAL GOVERNMENT LEGISLATOR [address] [facility] [address] [place] [address] PCP - General Internal Medicine 03/16/21 Corporate Treasurer Relationship Specialty Start Date End Date Darlene Galan, LOCAL GOVERNMENT LEGISLATOR [address] [facility] [address] [place] [address] PCP - General Internal Medicine 03/16/21 Corporate Treasurer Relationship Specialty Start Date End Date Darlene Galan, LOCAL GOVERNMENT LEGISLATOR [address] [facility] [address] [place] [address] PCP - General Internal Medicine 03/16/21 Team Status: Active Member Role Status Dates No Primary Care Physician Family Provider Active TONIA Landeros Primary Care Provider Active Team Status: Inactive Member Role Status Dates TONIA Landeros Primary Care Provider Active Dr. Lennox Kincaid MD Attending Provider Active Team Status: Inactive Member Role Status Dates TONIA Landeros Primary Care Provi shira, Attending Provider, Referring Provider Active Team Status: Active Member Role Status Dates Dr. Brian Rueda DO Attending Provider, Referring P shruthi Active TONIA Landeros Primary Care Provider Active Corporate Treasurer Relationship Specialty Start Date End Date Darlene Galan, LOCAL GOVERNMENT LEGISLATOR [address] [facility] [address] [place] [address] PCP - General Internal Medicine 03/16/21 Team Status: Inactive Member Role Status Dates Giuseppe Ang , [employer] Primary Care Provider Active DAVIE HE Attending Provider, Referring Provider MEG Perez Other Provider Active Corporate Treasurer Relationship Specialty Start Date End Date Darlene Galan CNP [address] [facility] [address] [place] [address] PCP - General Internal Medicine 03/16/21 Corporate Treasurer Relationship Specialty Start Date End Date Darlene Galan CNP [address] [facility] [address] [place] [address] PCP - General Internal Medicine 03/16/21 Corporate Treasurer Relationship Specialty Start Date End Date Darlene Galan CNP [address] [facility] [address] [place] [address] PCP - General Internal Medicine 03/16/21 Corporate Treasurer Relationship Specialty Start Date End Date Darlene Galan CNP [address] [facility] [address] [place] [address] PCP - General Internal Medicine 03/16/21 Corporate Treasurer Relationship Specialty Start Date End Date Darlene Galan CNP [address] [facility] [address] [place] [address] PCP - General Internal Medicine 03/16/21 Corporate Treasurer Relationship Specialty Start Date End Date Darlene Galan CNP [address] [facility] [address] [place] [address] PCP - General Internal Medicine 03/16/21 Corporate Treasurer Relationship Specialty Start Date End Date Darlene Galan CNP [address] [facility] [address] [place] [address] PCP - General Internal Medicine 03/16/21 Corporate Treasurer Relationship Specialty Start Date End Date Darlene Galan CNP [address] [facility] [address] [place] [address] PCP - General Internal Medicine 03/16/21 Corporate Treasurer Relationship Specialty Start Date End Date Darlene Galan CNP [address] [facility] [address] [place] [address] PCP - General Internal Medicine 03/16/21 Corporate Treasurer Relationship Specialty Start Date End Date Darlene Galan JAYANT [address] [facility] [address] [place] [address] PCP - General Internal Medicine 03/16/21 Corporate Treasurer Relationship Specialty Start Date End Date Darlene Galan LOCAL GOVERNMENT LEGISLATOR [address] [place] [address] [address] [place] [address] PCP - General Internal Medicine 03/16/21 Corporate Treasurer Relationship Specialty Start Date End Date Darlene Galan CNP [address] [facility] [address] [place] [address] PCP - General Internal Medicine 03/16/21 Corporate Treasurer Relationship Specialty Start Date End Date Darlene Galan LOCAL GOVERNMENT LEGISLATOR [address] [facility] [address] [place] [address] PCP - General Internal Medicine 03/16/21 Corporate Treasurer Relationship Specialty Start Date End Date Darlene Galan LOCAL GOVERNMENT LEGISLATOR [address] [facility] [address] [place] [address] PCP - General Internal Medicine 03/16/21 Corporate Treasurer Relationship Specialty Start Date End Date Giuseppe Ang CNP [address] [facility] [address] [place] [address] [place] [address] PCP - General Family Medicine 08/04/23 Corporate Treasurer Relationship Specialty Start Date End Date Giuseppe Ang CNP [address] [facility] [address] [place] [address] [place] [address] PCP - General Family Medicine 08/04/23 Corporate Treasurer Relationship Specialty Start Date End Date Giuseppe Ang CNP [address] [facility] [address] [place] [address] [place] [address] PCP - General Family Medicine 08/04/23 Corporate Treasurer Relationship Specialty Start Date End Date Giuseppe Ang CNP [address] [facility] [address] [place] [address] PCP - General Family Medicine 08/04/23 Corporate Treasurer Relationship Specialty Start Date End Date Darlene Galan CNP [address] [facility] [address] [place] [address] PCP - General Internal Medicine 03/16/21 08/03/23 Giuseppe Ang CNP [address] [facility] [address] [place] [address] [place] [address] PCP - General Family Medicine 08/04/23 Corporate Treasurer Relationship Specialty Start Date End Date Giuseppe Ang CNP [address] [facility] [address] [place] [address] [place] [address] PCP - General Family Medicine 08/04/23 Corporate Treasurer Relationship Specialty Start Date End Date Giuseppe Ang CNP [address] [facility] [address] [place] [address] [place] [address] PCP - General Family Medicine 08/04/23 Corporate Treasurer Relationship Specialty Start Date End Date Darlene Galan CNP [address] [place] [address] [place] [address] PCP - General Internal Medicine 03/16/21 08/03/23 Corporate Treasurer Relationship Specialty Start Date End Date Darlene Galan CNP [address] [facility] [address] [place] [address] PCP - General Internal Medicine 03/16/21 Corporate Treasurer Relationship Specialty Start Date End Date Giuseppe Ang CNP [address] [facility] [address] [place] [address] PCP - General Family Medicine 08/04/23 Corporate Treasurer Relationship Specialty Start Date End Date Giuseppe Ang CNP [address] [facility] [address] [place] [address] PCP - General Family Medicine 08/04/23 Team Status: Active Member Role Status Dates TONIA Landeros Primary Care Provider Active Team Status: Inactive Member Role Status Dates TONIA Landeros Primary Care Provider Active Start: April 05, 2024 End: April 05, 2024 Dr. Narayan Connelly MD Attending Provider Active Start: April 05, 2024 End: April 05, 2024 No Primary Care Physician Referring Provider Active Start: April 05, 2024 End: April 05, 2024 Team Status: Inactive Member Role Status Dates TONIA Landeros Primary Care Provider Active Start: May 07, 2024 End: May 07, 2024 Dr. Narayan Connelly MD Attending Provider Active Start: May 07, 2024 End: May 07, 2024 Dr. Narayan Connelly MD Referring Provider Active Start: May 07, 2024 End: May 07, 2024 Team Status: Active Member Role Status Dates Dr. Jesusita Jang MD Primary Care Provider Active Team Status: Inactive Member Role Status Dates Giuseppe Ang [employer] Primary Care Provider Active Start: May 18, 2024 End: May 18, 2024 Giuseppe Ang [employer] Referring Provider Active Start: May 18, 2024 End: May 18, 2024 Dr. Jesusita Jang MD Attending Provider Active Start: May 18, 2024 End: May 18, 2024 Team Status: Inactive Member Role Status Dates Giuseppe Ang [employer] Primary Care Provider Active Start: June 01, 2024 End: June 01, 2024 Giuseppe Ang [employer] Referring Provider Active Start: June 01, 2024 End: June 01, 2024 Dr. Narayan Connelly MD Attending Provider Active Start: June 01, 2024 End: June 01, 2024 Team Status: Inactive Member Role Status Dates Giuseppe Ang [employer] Primary Care Provider Active Start: June 22, 2024 End: June 22, 2024 Giuseppe Ang [employer] Referring Provider Active Start: June 22, 2024 End: June 22, 2024 Dr. Dg Díaz MD Attending Provider Active Start: June 22, 2024 End: June 22, 2024 Team Status: Inactive Member Role Status Dates Giuseppe Ang [employer] Primary Care Provider Active Start: June 22, 2024 End: June 22, 2024 Dr. Lennox Kincaid MD Attending Provider Active S tart: June 22, 2024 End: June 22, 2024 Team Status: Inactive Member Role Status Dates Dr. Jesusita Jnag MD Primary Care Provider Active Start: July 11, 2024 End: July 11, 2024 Dr. Jesusita Jang MD Referring Provider Active Start: July 11, 2024 End: July 11, 2024 Jeff ALEGRIA PA Attending Provider Active St art: July 11, 2024 End: July 11, 2024 Team Status: Active Member Role Status Dates Dr. Jesusita Jang MD Primary Care Provider Active Start: July 19, 2024 End: July 19, 2024 Dr. Mini Dailey MD Attending Provider Activ e Start: July 19, 2024 End: July 19, 2024 Dr. Dg Díaz MD Referring Provider Active Start: July 19, 2024 End: July 19, 2024 Team Status: Inactive Member Role Status Dates TONIA Landeros Referring Provider Active Start: July 27, 2024 End: July 27, 2024 Dr. Dg Díaz MD Attending Provider Active Start: July 27, 2024 End: July 27, 2024 Dr. Jesusita Jang MD Primary Care Provider Active Start: July 27, 2024 End: July 27, 2024 FOR RECORDS PERTAINING TO PATIENTS WHO ARE OR HAVE BEEN ENROLLED IN A CHEMICAL DEPENDENCY/SUBSTANCEABUSE PROGRAM, SOME INFORMATION MAY BE OMITTED. This clinical summary was aggregated from multiple sources. Caution should be exercised in using it in the provision of clinical care. This summary normalizes information from multiple sources, and as a consequence, information in this document may materially change the coding, format and clinical context of patient data. In addition, data may be omitted in some cases. CLINICAL DECISIONS SHOULD BE BASED ON THE PRIMARY CLINICAL RECORDS. [employer] provides no warranty or guarantee of the accuracy or completeness of information in this document.
[2024-08-01 01:15] VITALS: BP 108/57; PULSE 72; RESP 16; TEMP 36.6; O2SAT 99
[2024-08-01] MEDS: dexAMETHasone 4 MG/ML Vial IV ×3 (01:18→11:53)
[2024-08-01] MEDS: HYDROcodone Bitartrate/Apap 5/325 Tablet PO ×3 (01:27→11:58)
--- NOTE | 2024-08-01 04:25 | RAD_ITS ---
PROCEDURE: CERV SPINE 2 OR 3 VIEWS 08/01/2024 REASON FOR EXAM: S/P CERVICAL DISC REPLACEMENT TECHNIQUE: CERV SPINE 2 OR 3 VIEWS COMPARISON: 06/22/2024. FINDINGS: Unremarkable cervical fusion metallic hardware at C5-C6 and C6-C7 levels. Grade 1 anterolisthesis of C3 on C4. Grade 1 anterolisthesis of C4 on C5. Disc spacer is noted in the interim at C4-C5 in the interim. There are mild diffuse spondylotic changes. Findings are demonstrated to by diffuse disc space narrowing, osteophyte formation and degenerative endplate sclerosis. There is diffuse facet joint arthropathy with secondary bilateral neural foramina narrowing. No fracture or dislocation is seen. No aggressive lytic or blastic bony lesion is noted. RAD/Cerv Spine 2 or 3 Views IMPRESSION: Unremarkable cervical fusion metallic hardware at C5-C6 and C6-C7 levels. Grade 1 anterolisthesis of C3 on C4. Grade 1 anterolisthesis of C4 on C5. Disc spacer is noted in the interim at C4-C5 in the interim. Disclaimer: Reading Location[facility]
[2024-08-01] MEDS: Cefazolin 2 GM in 0.9% Normal Saline (100mL Bag) 100 ML IV (04:51)
[2024-08-01 05:02] VITALS: BP 123/69; PULSE 65; RESP 16; TEMP 36.7; O2SAT 99
[2024-08-01 05:44] LABS: Hematocrit 35.5 % (37-47); Hemoglobin 11.9 g/dL (12.0-15.0); Mean Corp Hgb Conc 33.5 g/dL (32-36); Mean Corpuscular Hgb 28.8 pg (27.0-32.0); Mean Platelet Vol. 10.2 fl (6.2-12.0); Platelet Count 241 K/mm3 (150-450); RBC Distribution Width CV 12.5 % (11.6-14.6); RBC Distribution Width SD 38.8 fl (35.1-43.9); Red Blood Count 4.13 M/mm3 (4.2-5.4); White Blood Count 10.6 K/mm3 (4.4-11.0)
[2024-08-01 06:24] LABS: Anion Gap 11 (5-15); BUN 7 mg/dL (4-19); BUN/Creat Ratio 12.4 RATIO (10-20); Calcium,Total 8.4 mg/dL (7.6-11.0); Carbon Dioxide 20.4 mmol/L (21.0-32.0); Chloride 105 mmol/L (98-108); Creatinine, Serum 0.59 mg/dL (0.70-1.20); EST Glomerular Filtration Rate 115 (>60); Estimated Creatinine Clearance 97.24 ml/min (50-250); Glucose 121 mg/dL (70-99); Potassium 4.2 mmol/L (3.3-5.1); Sodium Level 137 mmol/L (133-145)
[2024-08-01 06:55] VITALS: O2SAT 95
--- NOTE | 2024-08-01 07:53 | PCM.PN.ORT ---
Subjective Subjective Postop day 1 C4-5 disc replacement. Patient is doing relatively well postoperatively with her pain well-managed. The patient was seen at bedside today. The patient's voice is hoarse and she says she has noticed some slight issues with swallowing. The patient has been up to the bathroom however she has not yet walked in the halls. Therapy to see later today. Seen with Dr. Díaz. Objective Data Objective Data Vital Signs: Vital Signs Temp Pulse Resp BP Pulse Ox O2 Del Method O2 Flow Rate 98.1 F 65 16 123/69 H 99 Room Air 4 08/01/24 05:02 08/01/24 05:02 08/01/24 05:02 08/01/24 05:02 08/01/24 05:02 08/01/24 05:02 07/31/24 16:30 Oxygen Flow Rate (L/min) 4 Oxygen Delivery Method Room Air Weight: 132 lb 4.438 oz Body Mass Index (BMI) 24.2 Intake & Output: Intake and Output for Last 24 Hours 07/30/24 07/31/24 08/01/24 23:59 23:59 23:59 Intake Total 1560 / 1560 510 / 510 Output Total 5 / 5 Balance 1555 / 1555 510 / 510 Lab / Micro Data 08/01/24 05:08 08/01/24 05:08 Labs: Laboratory Results - last 24 hr 08/01/24 05:08: WBC 10.6, RBC 4.13 L, Hgb 11.9 L, Hct 35.5 L, MCV 86.0, MCH 28.8, MCHC 33.5, RDW Std Deviation 38.8, RDW Coeff of Roseanne 12.5, Plt Count 241, MPV 10.2, Sodium 137, Potassium 4.2, Chloride 105, Carbon Dioxide 20.4 L, Anion Gap 11, BUN 7, Creatinine 0.59 L, Estim Creat Clear Calc 97.24, Est GFR (MDRD) Non-Af 115, BUN/Creatinine Ratio 12.4, Glucose 121 H, Calcium 8.4 Micro: Microbiology 07/19/24 14:16 Swab (Method) Nasal Screen MRSA/MSSA - Final Radiography Diagnostic Testing: Radiology Impression Cervical Spine X-Ray 07/31/24 09:20 IMPRESSION: Intraoperative fluoroscopic images. Unremarkable disc spacer at C4-C5 level. [facility] Cerv[facility] Sp[facility]-Ray 08/01/24 04:25 IMPRESSION: Unremarkable cervical fusion metallic hardware at C5-C6 and C6-C7 levels. Grade 1 anterolisthesis of C3 on C4. Grade 1 anterolisthesis of C4 on C5. Disc spacer is noted in the interim at C4-C5 in the interim. Disclaimer: Reading [facility] Physical Exam Narrative Neurological exam of the upper extremities shows 5X5 power. Normal sensation across all dermatomes. Drain was removed, surgical gauze and Tegaderm showed very mild discharge this was removed. New gauze and Tegaderm was applied over the incision. Patient's cervical collar was removed for the drain, which was then reapplied. Const alert, oriented x3 and no apparent distress Assessment & Plan Assessment/Plan (1) S/P cervical disc replacement: PLAN: Plan Postop day 1 C4-5 disc replacement. Patient has walked with therapy who is cleared her for home discharge. Obtained reviewed x-rays today which show hardware and bone graft in good position. Reviewed restrictions no bending, lifting, twisting until 3 months postop. Discussed with the patient that she can start to come out of the collar over the next week and just wear the collar as needed for comfort. Educated and reviewed on the use of the incentive spirometer. Home-going meds include Vicodin, meloxicam, methocarbamol, senna, Zofran. OARRS reviewed. She will follow-up in the clinic in 2 weeks. Patient is in agreement.
[2024-08-01 08:07] VITALS: BP 111/63; PULSE 63; RESP 16; TEMP 36.9; O2SAT 95
[2024-08-01] MEDS: Senna/Docusate Sodium 1 Tablet 2 TABLET PO (08:12)
[2024-08-01] MEDS: Meloxicam 15 MG Tablet PO (08:12)
[2024-08-01] MEDS: Methocarbamol 500 MG Tablet 1000 MG PO ×2 (08:13→13:32)
[2024-08-01] MEDS: 0.9% Saline Lock 10 ML Syringe IV (11:53)
[2024-08-01] MEDS: Ondansetron 4 MG/2 ML Vial IV (11:58)
[2024-08-01 12:04] VITALS: BP 117/55; PULSE 95; RESP 16; TEMP 36.7; O2SAT 98
--- NOTE | 2024-08-01 12:40 | CASEMGMT ---
Pt has an order for DC placed. Dr. Patel states to this RN CM no additional needs identified. RN CM to the pt's room at this time. Pt at bedside. Pt has a c-collar on. Pt states that she is indep and that she did well with therapy. See notes (No further tx recommended). Pt states that she lives at home with her , 15 y/o son, and parents. Pt states that she does not need a FWW or any other DME. Pt states that her will drive her home today. Pt states that she plans to follow up with Dr Díaz in 2 weeks and plans to attend OP, if warranted, at that time. Pt and pt's deny further DC needs.
== END 2024-08-01 14:19 | disposition home or self-care (01) ==
LOC: MS3 08-01 07:04 → SDC 08-01 10:42 → MS3 08-01 10:42
PROVIDERS: Anesthesiology; Student in an Organized Health Care Education/Training Program; Admitting Provider Orthopaedic Surgery Orthopaedic Surgery of the Spine; PCP Internal Medicine; Referring Provider Orthopaedic Surgery Orthopaedic Surgery of the Spine; Visit Provider Orthopaedic Surgery Orthopaedic Surgery of the Spine
PROC: (CPT 22856; principal; 2024-07-31 09:50)
DX: M50.021 Cervical disc disorder at C4-C5 level with myelopathy (principal); G35 Multiple sclerosis; E04.2 Nontoxic multinodular goiter; M50.121 Cervical disc disorder at C4-C5 level with radiculopathy; Z87.891 Personal history of nicotine dependence; Z98.1 Arthrodesis status
CPT/HCPCS: 22856; 36415; 72040; 76000; 80048; 83036; 83735; 85025; 85027; 86703; 86706; 86708; 86803; 86850; 86900; 86901; 87081; 93005; 94668; 96365; 96366; 96372; 96375; 96376; 97161; 99221; A4648; A4216; G0378; J2405; J3475

== ENCOUNTER → 2024-11-02 | Outpatient (CLI) | payer OTHER, SELFPAY ==
--- NOTE | 2024-11-02 14:56 | MRI_ITS ---
PROCEDURE: BRAIN W/WO CONTRAST 11/02/2024 REASON FOR EXAM: DEMYELINATING DISEASE OF CENTRAL NERVOUS SYSTEM TECHNIQUE: Procedure Code: [id number] Modality: MR Procedure: BRAIN W/WO CONTRAST Multiplanar and multisequence images were obtained. CONTRAST: Clariscan VOLUME: 10 mL COMPARISON: 07-May-2024 FINDINGS: No hyperacute or acute infarctions could be depicted. No intracerebral or extra-axial acute hemorrhage. No enhancing masses. Bilateral cerebral predominantly subcortical and to less extent periventricular foci of isointense T1 and high T2/FLAIR signal. No post contrast enhancement perifocal edema or mass effect. Normal appearance of the corpus callosum. Normal MRI appearance of the cerebellum and brain stem. Normal appearance of the ventricular system. No midline shift. Normal MRI appearance of the petrous temporal bones and cerebellopontine angles with no obvious masses. No shift of midline structures. Normal MRI appearance of orbital structures, both globes, optic nerves, optic chiasm, optic tracts and optic radiations. Scanned paranasal sinuses show left maxillary retention cyst. MRI/Brain W/WO Contrast IMPRESSION: Stable bilateral cerebral foci of altered signal as described. No acute infarcts, intracerebral or extra-axial hematomas or enhancing masses. Reading [facility]
== END | disposition home or self-care (01) ==
PROVIDERS: PCP Internal Medicine; Referring Provider Psychiatry & Neurology Neurology; Visit Provider Psychiatry & Neurology Neurology
DX: G37.9 Demyelinating disease of central nervous system, unspecified (principal)
CPT/HCPCS: 70553; A9575; A4216

== ENCOUNTER → 2024-11-21 | Outpatient (CLI) | payer OTHER, SELFPAY ==
[2024-11-21 13:53] LABS: Hematocrit 41.8 % (37-47); Hemoglobin 13.6 g/dL (12.0-15.0); Immature Granulocytes Count 0.010 X10^3/uL (0.0-0.0); Mean Corp Hgb Conc 32.5 g/dL (32-36); Mean Corpuscular Volume 86.9 fL (81-99); Mean Platelet Vol. 10.4 fl (6.2-12.0); NRBC Flagged by Analyzer 0 % (0-5); Platelet Count 244 K/mm3 (150-450); RBC Distribution Width CV 11.9 % (11.6-14.6); RBC Distribution Width SD 38.2 fl (35.1-43.9); Red Blood Count 4.81 M/mm3 (4.2-5.4); White Blood Count 6.6 K/mm3 (4.4-11.0)
[2024-11-21 14:38] LABS: AST(SGOT) 18 U/L (<=31); Alanine Aminotransfer ALT/SGPT 9 U/L (<=34); Albumin, Serum 4.6 g/dL (3.5-5.0); Alkaline Phosphatase 28 U/L (35-104); Anion Gap 11 (5-15); BUN 10 mg/dL (4-19); BUN/Creat Ratio 15.0 RATIO (10-20); Calcium,Total 9.1 mg/dL (7.6-11.0); Carbon Dioxide 24.7 mmol/L (21.0-32.0); Chloride 104 mmol/L (98-108); Globulin 2.1 g/dL (2.2-4.2); Glucose 93 mg/dL (70-99); Potassium 4.0 mmol/L (3.3-5.1); Vitamin D,25 Hydroxy 31.8 ng/mL (30-100)
[2024-11-21 16:30] LABS: Cholesterol 166 mg/dL (<=200); Low Density Lipoprotein Calc. 90 mg/dL; Triglycerides 63 mg/dL; Very Low Density Lipoprotein 13 mg/dL (5-40); cholesterol:hdl ratio screen 2.61
== END | disposition home or self-care (01) ==
LOC: LAB 12:18
PROVIDERS: PCP Internal Medicine; Referring Provider Internal Medicine; Visit Provider Internal Medicine
DX: Z00.00 Encounter for general adult medical examination without abnormal findings (principal); G35.D Multiple sclerosis, unspecified
CPT/HCPCS: 36415; 80053; 80061; 82306; 85025

== ENCOUNTER → 2025-01-14 | Outpatient (CLI) | payer OTHER, SELFPAY ==
--- NOTE | 2025-01-14 16:48 | RAD_ITS ---
PROCEDURE: FOOT MIN 3 VIEWS 01/14/2025 REASON FOR EXAM: PAIN TECHNIQUE: Procedure Code: RADFO Modality: DX Procedure: FOOT MIN 3 VIEWS Laterality: Left COMPARISON: None FINDINGS: Question possible tiny avulsion fracture at the medial base of the distal 1st phalanx. Otherwise no acute fracture or dislocations. Scattered mild degenerative changes. No large joint effusion. No acute soft tissue abnormalities. No radiographic foreign body. RAD/Foot min 3 Views IMPRESSION: Question possible tiny avulsion fracture at the medial base of the distal 1st p halanx. Otherwise no acute fracture or dislocations. Reading Location: [id number]
--- OUTSIDE RECORDS SUMMARY | 2025-01-14 20:08 | XMS RPT_ITS | CCD ---
Author Organization [facility] Care Team Providers Care Social Group Worker Name Role Phone Josey Galan Unavailable Angelique North Unavailable Kamar Carpio Unavailable Vinicio Ramires Unavailable Ashok Miramontes Unavailable Keon Bishop Unavailable Olga Emerson Unavailable Victorino Garcia Unavailable Unavailable Unavailable Unavailable Ciabram SABA Kiah Unavailable Angelique North Unavailable Kamar Carpio MD Unavailable Dr. Vinicio Ramires MD Unavailable Ashok Miramontes Unavailable Farshad ROQUE, Joseph Ramos Unavailable Dr. Keon Bishop Unavailable Olga Emerson DO Unavailable Gravius ACCESS ANALYST, Mallory Unavailable Unavailable Slarb IMPORT/EXPORT ANALYST, Precious Unavailable Unavailable Victorino Garcia LPN Unavailable Unavailable Unavailable Unavailable Ciesa 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, 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-C Josey Primary Care Provider Ciesa 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, 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-C Josey Referring Provider [phone] Dr. Alex Coronado Attending Provider [phone] Dr. Lennox Kincaid Attending Provider Dr. Alex Coronado Other Provider Dr. Damon Garcia Attending Provider Dr. Alex Coronado Referring Provider Dr. Narayan Santiago Attending Provider Ciesa MIDDLE SCHOOL TECHNOLOGY TEACHER, Kiah Primary Care Provider Ciesa MIDDLE SCHOOL TECHNOLOGY TEACHER, Kiah Primary Care Provider DAVE SEPULVEDA Attending Unavailable DAVE SEPULVEDA Admitting Unavailable CIESA, KIAH Primary Care Unavailable Ciesa MIDDLE SCHOOL TECHNOLOGY TEACHER, Kiah Primary Care Provider Ciesa, Josey Unavailable Unavailable Ciesa, Josey Unavailable Getachew IMPORT/EXPORT ANALYST, RYDER Unavailable Unavailable Shana MIDDLE SCHOOL TECHNOLOGY TEACHER, Giuseppe Unavailable Shana, 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-C Giuseppe Primary Care Provider Dr. Lennox Kincaid Attending Provider Ciesa MIDDLE SCHOOL TECHNOLOGY TEACHER, Kiah Primary Care Provider Ciesa MIDDLE SCHOOL TECHNOLOGY TEACHER, Kiah Primary Care Provider Shana MIDDLE SCHOOL TECHNOLOGY TEACHER, Giuseppe Primary Care Provider Ciesa MIDDLE SCHOOL TECHNOLOGY TEACHER, Kiah Primary Care Provider Shana 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-C, Giuseppe Primary Care Provider Dr. Narayan Connelly MD Attending Provider Care Physician, No Primary Referring Provider Un available Dr. Narayan Connelly MD Referring Provider Shana 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-C, Giuseppe Referring Provider Dr. Carmen Jang MD Attending Provider [phone] Dr. Dg Díaz MD Attending Provider Dr. Lennox Kincaid MD Attending Provider Laine ROQUE, Dr. Mc Primary Care Provider Dr. Carmen Jang MD Referring Provider [phone] Jeff Castellon Attending Provider Ashlie ROQUE, Dr. Morse Attending Provider Dr. Dg Díaz MD Referring Provider Arjun ROQUE, Dr. Conte Other Provider Arjun ROQUE, Dr. Conte Admit Provider Loc ROQUE, Dr. Chaidez Other Provider Unavailab forest Paz MD, Dr. Abby De La Garza Other Provider Clark DO, Dr. Heath Other Provider Unavail able Elizabeth ROQUE, Dr. Heath Other Provider Unavailable Zunilda EVERETT, Dr. Carey Other Provider Laine ROQUE, Dr. Taylor Other Provider Miguel ROQUE, Dr. Busch Other Provider Yusef EVERETT, Dr. Gordon Other Provider Emilie EVERETT, Dr. Carter Other Provider Cady ROQUE, Dr. Jennifer Velez Other Provider Kym ROQUE, Dr. Bello Nichols Other Provider Isaiah ROQUE, Dr. Giron Other Provider Jorge ROQUE, Dr. Millan Other Provider Ken ROQUE, Dr. Beltre Other Provider Migue Hayes Other Provider Vitaly ROQUE, Dr. Gilmore Other Provider Dr. Oneil Moses DO Attending Provider Dr. Oneil Moses DO Other Provider Ely Godinez Attending Provider Shana 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-C, Giuseppe Primary Care Provider Dr. Narayan Connelly MD Attending Provider Narayan Connelly MD Unavailable GIUSEPPE ANG Primary Care Unavailable ORELLANA, TAMIEIN Attending Unavailable GIUSEPPE ANG Primary Care Unavailable ORELLANA, MOEIN Referring Unavailable Shana 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-C, Giuseppe Primary Care Provider Dr. Narayan Connelly MD Attending Provider LAINE ROQUE CARMEN Kidd Primary Care Physician [phone] Laine ROQUE, Dr. Mc Primary Care Physician Ashlie ROQUE, Dr. Morse Attending Physician Shana CRUZ-CGiuseppe Referring Provider Arjun ROQUE, Dr. Conte Attending Physician Arjun ROQUE, Dr. Conte Nurse Practitioner Arjun ROQUE, Dr. Conte Admitting Physician Loc ROQUE, Dr. Chaidez Nurse Practitioner Concepción Paz MD, Dr. Abby De La Garza Nurse Practitioner Clark DO, Dr. Heath Nurse Practitioner Julio C Johnson MD, Dr. Heath Nurse Practitioner Rosemary Mauro DO, Dr. Carey Nurse Practitioner Laine ROQUE, Dr. Taylor Nurse Practitioner Miguel ROQUE, Dr. Busch Nurse Practitioner Yusef EVERETT, Dr. Gordon Nurse Practitioner Emilie EVERETT, Dr. Carter Nurse Practitioner Cady ROQUE, Dr. Jennifer Velez Nurse Practitioner Kym ROQUE, Dr. Bello Nichols Nurse Practitioner Isaiah ROQUE, Dr. Giron Nurse Practitioner Jorge ROQUE, Dr. Millan Nurse Practitioner Ken ROQUE, Dr. Beltre Nurse Practitioner Migue Hayes Nurse Practitioner [phone] Nikolay Haider MD, Dr. Gilmore Nurse Practitioner Dr. Oneil Moses DO Attending Physician Dr. Oneil Moses DO Nurse Practitioner Codi ROQUE, Dr. High Attending Physician Ely Godinez Attending Physician Laine ROQUE, Dr. Mc Referring Provider Tal ROQUE, Dr. Servin Attending Physician Unavaildiana Ambrose MD, Dr. Servin Referring Provider Unavailab forest Jang MD, Dr. Mc Attending Physician Giuseppe Ang Primary Care Unavailable Narayan Connelly Referring Unavailable WaNarayan mccartney Attending Unavailable Díaz, Dg Attending Unavailable Díaz, Dg Referring Unavailable Oleghe, Efewongbe Primary Care Unavailable Díaz, Dg Attending Unavailable Díaz, Dg Referring Unavailable Díaz, Dg Admitting Unavailable Monterroso, Achintya Consulting Unavailable Oleghe, Efewongbe Primary Care Unavailable Abby Paz Consulting Unavailable Malinda Clark Consulting Unavailable Malinda Johnson Consulting Unavailable Aurelio Mauro Consulting Unavailable Oleghe, Ifijen Consulting Unavailable Narayan Rivera Consulting Unavailable Heidi Holbrook Consulting Unavailable Emilie, Maryann Consulting Unavailable Cady, Jennifer Rosie Consulting Unavailable Bello Mejía Consulting Unavailable Mack Colon Consulting Unavailable Yana Sepulveda Consulting Unavailable Alexsander Rogers Consulting Unavailable Migue Hayes Consulting Unavailable Vitaly, Mando Consulting Unavailable Shana, Giuseppe Referring Unavailable Shana, Giuseppe Primary Care Unavailable Oleghe, Efewongbe Attending Unavailable Shana, Giuseppe Primary Care Unavailable Narayan Connelly Attending Unavailable Care Physician, No Primary Referring Unava ilable Lennox Kincaid Attending Unavailable Oleghe, Efewongbe Primary Care Unavailable Shana, Giuseppe Referring Unavailable Oleghe, Efewongbe Primary Care Unavailable Ely Salas Attending Unavailable Oneil Moses Attending Unavailable Díaz, Dg Referring Unavailable Díaz, Dg Admitting Unavailable Oneil Moses Consulting Unavailable Oleghe, Efewongbe Primary Care Unavailable Monterroso, Achintya Consulting Unavailable Abby Paz Consulting Unavailable Malinda Clark Consulting Unavailable Malinda Johnson Consulting Unavailable Aurelio Mauro Consulting Unavailable Oleghe, Ifijen Consulting Unavailable Narayan Rivera Consulting Unavailable Heidi Holbrook Consulting Unavailable Maryann Phan Consulting Unavailable Jonelleam, Jennifer Rosie Consulting Unavailable Bello Mejía Consulting Unavailable Vitaly, Mando Consulting Unavailable Mack Colon Consulting Unavailable Yana Sepulveda Consulting Unavailable Alexsander Rogers Consulting Unavailable Migue Hayes Consulting Unavailable Díaz, Dg Consulting Unavailable Díaz, Dg Referring Unavailable Díaz, Dg Attending Unavailable Oleghe, Efewongbe Primary Care Unavailable Díaz, Dg Consulting Unavailable Díaz, Dg Referring Unavailable Díaz, Dg Admitting Unavailable Ely Salas Attending Unavailable Oleghe, Efewongbe Primary Care Unavailable Kaylynn Monterroso Consulting Unavailable Abby Paz Consulting Unavailable Malinda Clark Consulting Unavailable Malinda Johnson Consulting Unavailable Aurelio Mauro Consulting Unavailable Arnulfoghe, Ifijen Consulting Unavailable Narayan Rivera Consulting Unavailable Heidi Hlobrook Consulting Unavailable Maryann Phan Consulting Unavailable Jennifer Lazar Consulting Unavailable Bello Mejía Consulting Unavailable Mack Colon Consulting Unavailable Yana Sepulveda Consulting Unavailable Alexsander Rogers Consulting Unavailable Migue Hayes Consulting Unavailable Mando Haider Consulting Unavailable Díaz, Dg Consulting Unavailable Díaz, Dg Referring Unavailable Oleghe, Efewongbe Primary Care Unavailable Mini Dailey Attending Unavailabl e Oleghe, Efewongbe Primary Care Unavailable Oleghe, Efewongbe Referring Unavailable Jeff Castellon Attending Unavailable Díaz, Dg Attending Unavailable Giuseppe Ang Referring Unavailable Oleghe, Efewongbe Primary Care Unavailable Shana, Giuseppe Primary Care Unavailable Lennox Kincaid Attending Unavailable Shana, Giuseppe Primary Care Unavailable Shana Giuseppe Referring Unavailable Díaz, Dg Attending Unavailable Gareth Ambrose Referring Unavailable Oleghe, Efewongbe Primary Care Unavailable Gareth Ambrose Attending Unavailable Oleghe, Efewongbe Primary Care Unavailable Oleghe, Efewongbe Referring Unavailable Oleghe, Efewongbe Attending Unavailable Oleghe, Efewongbe Primary Care Unavailable Lennox Kincaid Attending Unavailable Shana, Giuseppe Referring Unavailable Oleghe, Efewongbe Primary Care Unavailable Díaz, Dg Attending Unavailable Oleghe, Efewongbe Referring Unavailable Oleghe, Efewongbe Primary Care Unavailable Ely Salas Attending Unavailable Shana, Giuseppe Referring Unavailable Oleghe, Efewongbe Primary Care Unavailable Oleghe, Efewongbe Attending Unavailable Codi, Chapin Attending Unavailable Oleghe, Efewongbe Primary Care Unavailable Shana, Giuseppe Referring Unavailable Giuseppe Ang Primary Care Unavailable Narayan Connelly Attending Unavailable TAL ROQUE, GARETH Attending Unavailable CARMEN JANG MD Primary Care UnavailCARMEN Castelan MD Primary Care Unavailab forest AMBROSE MD, GARETH Attending Unavailable Allergies Allergy Classification Reported Allergen(s) Allergy Type Date of Onset Reaction(s) Facility Corticosteroids (3 sources) Cortisone Drug Allergy 2 [facility] Work Phone: (15 sources) SEASONAL [Other] Propensity to adverse reactions 7 [facility] Work Phone: (20 sources) Cortisone; Translations: [CORTISONE] Drug Allergy 2 [facility] Work Phone: (1 source) OTHER; Translations: [OTHER] Propensity to adverse reactions (disorder) 7 [facility] Repository (9 sources) Dressing: Non-Medicated; Translations: [Dressing: Non-Medicated] Allergy to substance 5 [facility] Comment on above: Latex bandages after surgery (1 source) Cortisone Drug Allergy [address] [place] [address] Repository Medications Current Medications Medication Drug Class(es) Dates Sig (Normalized) Sig (Original) DULoxetine 30 mg delayed release oral capsule (4 sources) Serotonin and Norepinephrine Reuptake Inhibitor Start: 11-03-19 take 1 capsule by mouth once daily Duloxetine 30 mg capsule,delayed release(DR/EC) Active 30 mg PO daily November 02, 2024 12:00am Complies with drug therapy iv contrast (will be provided with radiology test) (1 source) Start: 05-12-19 End: 05-13-19 inject 1 dose intravenously once iv contrast [...] 05/11/2024 05/12/2024 Active methylPREDNISolone (3 sources) Corticosteroid Start: 06-13-19 End: 06-19-19 methylPREDNISolone (MEDROL, SANDRA,) 4 mg Dose-Pack Indications: Acute cervical radiculopathy See package instructions 21 tablet 0 06/13/2023 06/19/2023 Active mupirocin 0.02 mg/mg topical ointment (2 sources) RNA Synthetase Inhibitor Antibacterial Start: 01-21-20 End: 03-28-19 mupirocin (BACTROBAN) 2 % ointment Indications: Carrier [...] mg oral tablet (2 sources) Opioid Agonist Start: 04-11-19 End: 04-16-19 take 1 tablet by mouth every eight [...] 5 days. Take 1 tablet by starla every 8 hours as needed (Moderate to severe postop pain) for up to 5 days. Completed/Discontinued Medications Medication Drug Class(es) Dates Sig (Normalized) Sig (Original) acetaminophen 325 mg oral tablet (20 sources) Start: 08-16-2024 End: 11-02-2024 take 1 tablet by mouth once as needed Acetaminophen (Tylenol) 325 mg tablet Discontinued 325 mg PO ONCE as needed August 16, 2024 12:00am November 02, 2024 10:19am Start: 05-18-2024 End: 08-01-2024 take 1 tablet by mouth once as needed for pain Acetaminophen (Tylenol) 325 mg tablet Discontinued 325 mg PO ONCE as needed for pain May 18, 2024 12:00am August 01, 2024 7:48am Start: 03-29-2023 take 2 tablets enter al route every six hours as needed acetaminophen (TYLENOL) 325 mg tablet 2 tablets by ORAL/FEEDING TUBE route every 6 hours as needed for pain. 03/29/2023 Active Comment on above: 2 tablets by ORAL/FE EDING TUBE route every 6 hours as needed for pain. acetaminophen 325 mg / HYDROcodone bitartrate 5 mg oral tablet (9 sources) Opioid Agonist Start: 08-01-2024 End: 08-16-2024 Hydrocodone-Acetaminophen 5-325 mg Tablet Discontinued 1 {tbl} PO EVERY 6 HOURS as needed for pain 7 0 August 01, 2024 August 16, 2024 10:08am Status post cervical disc replacement Other specified postprocedural states acetaminophen 325 mg / oxyCODONE hydrochloride 5 mg oral tablet (16 sources) Opioid Agonist Start: 03-21-2015 End: 07-01-2017 Oxycodone-Acetaminophen 1 TABLET tablet Discontinued 1 - 2 [...] as needed. celecoxib 200 mg oral capsule (16 sources) Nonsteroidal Anti-inflammatory Drug Start: 07-31-2021 End: [...] Quantity: 60 {Packet} Refills: 0 Ordered: 23-Apr-2019 Josey Galan Start : 23-Apr-2019 End : 23-May-2019 [...] Discontinued docusate sodium 50 mg / sennosides, prison 8.6 mg oral tablet (20 sources) Start: 08-01-2024 End: 08-16-2024 Sennosides-Docusate Sodium (Stimulant Laxative Plus) 8.6-50 mg Tablet Discontinued 2 {tbl} PO TWICE A DAY as needed for constipation August 01, 2024 7:49am August 16, 2024 10:09am Start: 03-29-2023 End: 05-11-2024 take 2 tablets enteral route every twelve hours as needed senna-docusate (SENNA-S) 8.6-50 mg per tablet Take 2 tablets by mouth two times a day as needed for constipation. 20 tablet 03/29/2023 05/11/2024 Discontinued Comment on above: Take 2 tablets by mo [facility] two times a day as needed for constipation. famotidine 20 mg oral tablet (16 sources) Histamine-2 Receptor Antagonist Start: 5 End: 8 take 1 tablet by mouth twice daily Famotidine 20 MG tablet Discontinued 20 mg PO TWICE A DAY 28 July 09, 2014 12:00am July 01, 2017 9:27am gabapentin 300 mg oral capsule (14 sources) Anti-epileptic Agent Start: 4 End: take 1 capsule by mouth once daily [...] neur opathy ibuprofen 200 mg oral tablet (20 sources) Nonsteroidal Anti-inflammatory Drug Start: 04-05-19 End: [...] keTORolac 60 mg injection (T oradol) meloxicam 15 mg oral tablet (20 sources) Nonsteroidal Anti-inflammatory Drug Start: 08-01-2024 End: 09-13-2024 take 1 tablet by mouth once daily Meloxicam 15 mg Tablet Discontinued 15 mg PO DAILY 30 0 August 01, 2024 12:00am September 13, 2024 10:02am Take once a day Start: 05-30-2019 End: 02-20-2021 take 1 tablet [...] MG tablet Discontinued 15 mg PO DAILY 30 0 October 01, 2017 12:00am May 29, 2021 10:43am Comment on above: with food metaxalone 800 mg oral tablet (11 sources) Start: 0 End: 2 take 1 tablet by mouth once daily at bedtime Metaxalone 800 MG Oral Tablet 1 (one) Tablet qhs for 0 days Quantity: 30 {Tablet} Refills: 3 Ordered: 20-Feb-2021 Victorino Garcia LPN Start : 10-Apr-2019 End : 20-Feb-2021 Inactive methocarbamol 500 mg oral tablet (20 sources) Muscle Relaxant Start: 5 End: 5 take 500-750 mg by mouth three times daily as needed for pain Methocarbamol 500 mg Tablet Discontinued 500 - 750 mg PO THREE TIMES A DAY as needed for Pain/spasms 30 0 August 01, 2024 7:49am August 16, 2024 10:08am Start: 04-11-2023 End: 05-11-2024 take 1 tablet by mouth every six hours as needed for pain methocarbamol (ROBAXIN) 750 mg tablet Indications: S/P cervical spinal fusion , Acute postoperative pain Take 1 tablet by mouth every 6 hours as needed (Muscle spasms / pain). 20 tablet 06/06/2023 05/11/2024 Discontinued Start: 03-29-2023 take 1 tablet by starla th every six hours as needed for pain [...] twice daily as needed. Take with food. ondansetron 4 mg disintegrating oral tablet (9 sources) Serotonin-3 Receptor Antagonist Start: 08-02-19 End: 08-17-19 take 1 tablet by mouth every six hours as needed for nausea and vomiting Ondansetron 4 mg tablet,disintegrati ng Discontinued 4 mg PO EVERY 6 HOURS as needed for nausea and vomiting 30 0 August 01, 2024 12:00am August 16, 2024 10:09am predniSONE 10 mg oral tablet (5 sources) Start: 08-04-19 End: 05-12-19 predniSONE (DELTASONE) 10 mg tablet 50 mg for 3 days, followed by 30 mg for 3 days, followed by 10 mg for 3 days. 27 tablet 08/04/2023 05/11/2024 Discontinued saccharomyces boulardii 250 mg oral capsule (11 sources) Start: 03-20-19 End: 02-20-19 take 1 capsule by mouth once daily Probiotic 250 MG Oral Capsule 1 (one) Capsule daily for 0 days Quantity: 30 {Capsule} Refills: 0 Ordered: 20-Feb-2021 Victorino Garcia LPN Start : 20-Mar-2019 End : 20-Feb-2021 Inactive tiZANidine 4 mg oral tablet (20 sources) Central alpha-2 Adrenergic Agonist Start: 08-02-19 End: 05-12-19 25 tiZANidine (ZANAFLEX) 4 mg tablet 08/02/2023 05/11/2024 Discontinued Start: 10-01-2017 End: 05-29-2021 take 1 tablet by mouth three times daily Tizanidine 4 MG tablet Discontinued 4 mg PO THREE TIMES A DAY 30 October 01, 2017 12:00am May 29, 2021 10:43am traMADol hydrochloride 50 mg oral tablet (16 sources) Opioid Agonist Start: 07-09-2014 End: 07-01-2017 [...] Classification Problem Date Documented Da te Episodic/Chronic Anxiety disorders (20 sources) Generalized anxiety disorder; [...] worse after meals, h istory of migraines Immunizations and screening for infectious disease (1 source) Encounter for immunization; Translations: [Encounter for immunization] Onset: 11-16-2024 Episodic Malaise and fatigue (1 source) Asthenia; Translations: [Weakness] 05-11-2024 Episodic Mood disorders (20 sources) Recurrent major depressive episodes; Translations: [Major depressive disorder, recurrent, unspecified] 09-14-2007 Chronic Multiple sclerosis (1 source) Multiple sclerosis; Translations: [Multiple sclerosis] Onset: 11-16-2024 Chronic Nonmalignant breast conditions (20 sources) Breast [...] 05-28-2020 Chronic Comment on above: seen at [facility] by Uche Dennis Other nervous system disorders (11 sources) Ulnar neuropathy of left arm; 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] 05-02-2019 Chronic Comment on above: with 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 Other nervous system disorders (19 sources) Ulnar neuropathy; Translations: [Lesion of ulnar [...] unspecified] 05-11-2024 Chronic Other nervous system disorders (20 sources) Cervical myelopathy; Translations: [Disease of spinal cord, unspecified] 06-25-2024 Chronic Other nervous system disorders (14 sources) Neuropathy; Translations: [Polyneuropathy, unspecified] 05-18-2024 Chronic Other nervous system disorders (2 sources) Demyelinating disease of central nervous system, unspecified; Translations: [Demyelinating disease of central nervous system (HCC)] Onset: 05-25-2024 Chronic Other nervous system disorders (1 source) Polyneuropathy, unspecified; Translations: [Polyneuropathy, unspecified] Onset: 06-01-2024 Chronic Other nervous system disorders (13 sources) Paresthesia of skin; Translations: [Paresthesia of left upper limb] 05-02-2019 Episodic Comment on above: occured after a coug h left worsening Other nervous system disorders (3 sources) Numbness of hand; Translations: [Anesthesia of skin] Episodic Other nervous system disorders (20 sources) Disorder of nervous system; Translations: [Other disorders of nervous system] 04-06-2024 Episodic Comment on above: Patient reports a pr ogressive abnormality over the past 6 months to year manifested by diffuse paresthesia. Exact etiology not clear. Other non-traumatic joint disorders (18 sources) Joint pain; Translations: [Joint pain] 02-20-2021 Episodic Comment on above: overall joint pain Other non-traumatic joint disorders (18 sources) Pain in elbow; Translations: [Pain in left elbow] Episodic Other non-traumatic joint disorders (5 sources) Pain in left shoulder; Translations: [Left shoulder pain] Resolved: 02-20-2021 03-06-2021 Episodic Comment on above: Shoulder and elbow Other screening for suspected conditions (not mental [...] diabetes mellitus] 03-06-2021 Episodic Residual codes; unclassified (18 sources) Pain; Translations: [Pain, unspecified] 05-29-2021 Episodic Residual codes; unclassified (17 sources) Past history of procedure; Translations: [Other specified postprocedural states] 07-14-2017 Episodic Comment on above: 2012 Residual codes; unclassified (3 sources) Other specified postprocedural states; Translations: [S/P decompression of ulnar nerve] Onset: 11-25-2021 Episodic Residual codes; unclassified (15 sources) History of eye AND/OR adnexa surgery; Translations: [Other specified postprocedural states] 07-14-2017 Episodic Comment on above: Bilateral eye repair for lazy eyes 1987, 1997 Residual codes; unclassified (20 sources) History of surgical procedure on cervical spine; Translations: [Other specified postprocedural states] 07-04-2023 Episodic Spondylosis; intervertebral disc disorders; other back problems (20 sources) Degeneration of cervical intervertebral disc; Translations: [Cervical radiculopathy] Onset: 03-29-2023 05-02-2019 Chronic Comment on above: C5-C6 with radiculop athy to left arm,will send to PT, if not improving would do MRI. nerve conduction on 04-12 at 12:15 at [facility] [place] C5-C6 with radiculop athy to left arm, Dr. Tapia disc replacement C5-C6 with radiculop athy to left arm, Dr. Shilo Tapia disc replacement, now needs fusion but does not want. [facility] in [place] might do another disc replacement since Dr Tapia cannot do- takes ibuprofen prn, backed off since upset stomach Thyroid disorders (20 sources) Goiter; Translations: [Goiter] 03-06-2021 Chronic Comment on above: Left lower pole 1.2 solid nodule will be biopsied by Dr. Zabala we will get FNA and OV note results. likely need to repeat the US.Left lower pole 1.2 solid nodule biopsy by Dr. Zabala Unclassified (1 source) Multiple sclerosis; Translations: [Multiple sclerosis] 11-16-2024 Chronic Comment on above: lesions noted in las t brain scan, will be seeing neurologist as follow up 2 wks after neck surgery Unclassified (20 sources) History of neck surgery; Translations: [Z98.890 - Other specified postprocedural states] Unclassified (11 sources) Cervical spinal stenosis due to adjacent segment disease after fusion procedure Unclassified (7 sources) G62.9 - Polyneuropathy, unspecified,M48.02 - Spinal stenosis, cervical region,M50.30 - Other cervical disc degeneration, unspecified cervical region Unclassified (7 sources) Z98.890 - Other specified postprocedural states,M48.02 - Spinal stenosis, cervical region,M50.30 - Other cervical disc degeneration, unspecified cervical region Unclassified (3 sources) Status post cervical disc replacement Unclassified (5 sources) M54.50 - Low back pain, unspecified Unclassified (1 source) Patient encounter status Unclassified (1 source) Z00.00 - Encounter for general adult medical examination without abnormal findings Unclassified (1 source) Low back pain, unspecified; Translations: [Low back pain, unspecified] Onset: 09-13-2024 Past or Other Problems Problem Classification Problem Date Documented Date Episodic/Chronic Abdominal pain (20 sources) Right upper quadrant pain; Translations: [Right upper quadrant pain] Onset: 07-16-2008 Resolved: 09-27-2011 03-14-2015 Episodic Administrative/social admission (20 sources) Patient encounter status; Translations: [Encounter for physical examination related to employment] Onset: 05-18-2024 12-17-2022 Episodic Biliary tract disease (20 sources) Biliary colic; Translations: [Calculus of bile duct without cholangitis or cholecystitis without obstruction] Onset: 03-14-2015 03-14-2015 Episodic Headache; including migraine (12 sources) Headache; including migraine Other complications of (19 sources) Supervision of other high risk pregnancies, unspecified trimester; Translations: [Supervision of other high-risk ] Onset: 07-16-2008 Resolved: 09-27-2011 09-27-2011 Episodic Other connective tissue disease (20 sources) Myofascial pain; Translations: [Myalgia, other site] Onset: 12-16-2014 12-16-2014 Episodic Other connective tissue disease (20 sources) History of cervical spine fusion; Translations: [Arthrodesis status] Onset: 03-29-2023 03-29-2023 Episodic Other female genital disorders (19 sources) Female genital organ symptoms; Translations: [Unspecified condition associated with female genital organs and menstrual cycle] Onset: 07-16-2008 Resolved: 09-27-2011 09-27-2011 Episodic Other nervous system disorders (20 sources) Acute postoperative pain; Translations: [Other acute postprocedural pain] Onset: 03-29-2023 03-29-2023 Episodic Other nervous system disorders (1 source) Other disorders of nervous system; Translations: [Other disorders of nervous system] Onset: 05-18-2024 Episodic Other nervous system disorders (3 sources) [...] of nicotine dependence] Onset: 03-17-2023 03-17-2023 Episodic Spondylosis; intervertebral disc disorders; other back problems (20 sources) Cervical radiculopathy; Translations: [Radiculopathy, cervical] Onset: 12-16-2014 05-02-2019 Episodic Comment on above: nerve conduction on 04-12 at 12:15 at [facility] saw Dr. Coronado in [place], had CT. Going to place in [place] now, considering more surgerynerve [facility] ical stenosis and [...] agree. Referral to neurosurgery as noted above. Unclassified (20 sources) Ulnar neuropathy of left [...] Test Name Value Interpretation Reference Range Facility [facility] 12-18-2024 Iron [Mass/Vol] 121 ug/dL Normal 50-170 [facility] Comment on above: Performed By: #### H BCM, HCV1, IMMUN, HBSAG #### [place] [address] #### CBC, ADIFF, ANEU, CMP, GFR #### [address] [address] [place] 12-18-2024 Ferritin [Mass/Vol] 62.0 ng/mL Normal 8.0-252.0 [facility] Comment on above: Performed By: #### F ERR, TSH, FT4, FE, IBC #### [address] [address] FT4on 12-18-2024 Free T4 [Mass/Vol] 1.03 ng/dL Normal 0.76-1.46 [facility] Comment on above: Performed By: #### H BCM, HCV1, IMMUN, HBSAG #### [place] [address] #### CBC, ADIFF, ANEU, CMP, GFR #### [address] [address] IBCon 12-18-2024 TIBC 271 mcg/dL Normal 250-450 [facility] Comment on above: Performed By: #### H BCM, HCV1, IMMUN, HBSAG #### [place] [address] #### CBC, ADIFF, ANEU, CMP, GFR #### [address] [address] LABORATORYOrdered By: SYSTEM SYSTEM on 12-18-2024 Ferritin [Mass/Vol] 62.0 ng/mL Normal 8.0 - 25 2.0 ng/mL AO ADM SS Free T4 [Mass/Vol] 1.03 ng/dL Normal 0.76 - 1. 46 ng/dL AO ADM SS Iron [Mass/Vol] 121 ug/dL Normal 50 - 170 mcg/dL AO ADM SS Iron binding capacity [Mass/Vol] 271 mcg/dL Normal 250 - 450 mcg/dL AO ADM SS TSH Qn 0.99 m[IU]/L Normal 0.36 - 3.74 mcIU/mL AO ADM SS TSHon 12-18-2024 TSH Qn 0.99 m[IU]/L Normal 0.36-3.74 [facility] Comment on above: Performed By: #### H BCM, HCV1, IMMUN, HBSAG #### [facility] [address] [place] [address] #### CBC, ADIFF, ANEU, CMP, GFR #### [facility] [address] [place], [place] [address] CBC W/Diff, Automatedon 10-0 -2024 Absolute Lymph 1.55 X10 3/uL Normal 0.83-4.51 [facility] Comment on above: Performed By: #### L 506.1001, L100.0100, L500.4050, L500.4100 ####[facility] [address] [place], [address] Absolute Neut 4.4 X10 3/uL Normal 2.0-7.7 [facility] Comment on above: Performed By: #### L 506.1001, L100.0100, L500.4050, L500.4100 ####[facility] [address] [place], [address] Basophils/100 WBC (Bld) 0.8 % Normal 0-1 [facility] Comment on above: Performed By: #### L 506.1001, L100.0100, L500.4050, L500.4100 ####[facility] [address] [place], [address] Eosinophils/100 WBC (Bld) 0.9 % Normal 0-5 [facility] Comment on above: Performed By: #### L 506.1001, L100.0100, L500.4050, L500.4100 ####[facility] [address] [place], [address] Erythrocyte distribution width (RBC) [Ratio] 11.9 % Normal 11.6-14.6 [facility] Comment on above: Performed By: #### L 506.1001, L100.0100, L500.4050, L500.4100 ####[facility] [address] [place], [address] Hematocrit (Bld) [Volume fraction] 41.8 % Normal 37-47 [facility] Comment on above: Performed By: #### L 506.1001, L100.0100, L500.4050, L500.4100 ####[facility] [address] [place], [address] Hemoglobin (Bld) [Mass/Vol] 13.6 g/dL Normal 12.0-15.0 [facility] Comment on above: Performed By: #### L 506.1001, L100.0100, L500.4050, L500.4100 ####[facility] [address] [place], [address] IG% 0.200 Normal 0.0-0.9 [facility] Comment on above: Result Comment: IG% - Immature Granulocytes (promyelocytes, myelocytes and metamyelocytes) > 1% indicates that a LEFT SHIFT is Present. Performed By: #### L 506.1001, L100.0100, L500.4050, L500.4100 ####[facility] [address] [place], [address] Lymphocytes/100 WBC (Bld) 23.5 % Normal 19-41 [facility] Comment on above: Performed By: #### L 506.1001, L100.0100, L500.4050, L500.4100 ####[facility] [address] [place], [address] MCH (RBC) [Entitic mass] 28.3 pg Normal 27.0-32.0 [facility] Comment on above: Performed By: #### L 506.1001, L100.0100, L500.4050, L500.4100 ####[facility] [address] [place], [address] MCHC (RBC) [Mass/Vol] 32.5 g/dL Normal 32-36 [facility] Comment on above: Performed By: #### L 506.1001, L100.0100, L500.4050, L500.4100 ####[facility] [address] [place], [address] MCV (RBC) [Entitic vol] 86.9 fL Normal 81-99 [facility] Comment on above: Performed By: #### L 506.1001, L100.0100, L500.4050, L500.4100 ####[facility] [address] [place], [address] Monocytes/100 WBC (Bld) 7.4 % Normal 0-10 [facility] Comment on above: Performed By: #### L 506.1001, L100.0100, L500.4050, L500.4100 ####[facility] [address] [place], [address] Neutrophils/100 WBC (Bld) 67.2 % Normal 47-70 [facility] Comment on above: Performed By: #### L 506.1001, L100.0100, L500.4050, L500.4100 ####[facility] [address] [place], [address] Nucleated RBC (Bld) [#/Vol] 0 10*3/uL Normal 0-5 [facility] Comment on above: Performed By: #### L 506.1001, L100.0100, L500.4050, L500.4100 ####[facility] [address] [place], [address] Platelet mean volume (Bld) [Entitic vol] 10.4 fL Normal 6.2-12.0 [facility] Comment on above: Performed By: #### L 506.1001, L100.0100, L500.4050, L500.4100 ####[facility] [address] [place], [address] Platelets (Bld) [#/Vol] 244 10*3/uL Normal 150-450 [facility] Comment on above: Performed By: #### L 506.1001, L100.0100, L500.4050, L500.4100 ####[facility] [address] [place], [address] RBC (Bld) [#/Vol] 4.81 10*6/uL Normal 4.2-5.4 [facility] Comment on above: Performed By: #### L 506.1001, L100.0100, L500.4050, L500.4100 ####[facility] [address] [place], [address] RDW SD 38.2 fl Normal 35.1-43.9 [facility] Comment on above: Performed By: #### L 506.1001, L100.0100, L500.4050, L500.4100 ####[facility] [address] [place], [address] WBC (Bld) [#/Vol] 6.6 10*3/uL Normal 4.4-11.0 [facility] Comment on above: Performed By: #### L 506.1001, L100.0100, L500.4050, L500.4100 ####[facility] [address] [place], [address] Comprehensive Metabolic [facility] 11-21-2024 Albumin [Mass/Vol] 4.6 g/dL Normal 3.5-5.0 [facility] Comment on above: Performed By: #### L 506.1001, L100.0100, L500.4050, L500.4100 ####[facility] [address] [place], [address] Albumin/Globulin [Mass ratio] 2.2 {ratio} Normal 0.9-2.4 [facility] Comment on above: Performed By: #### L 506.1001, L100.0100, L500.4050, L500.4100 ####[facility] [address] [place], [address] ALK PHOS 28 U/L Low 35-104 [facility] Comment on above: Performed By: #### L 506.1001, L100.0100, L500.4050, L500.4100 ####[facility] [address] [place], [address] ALT [Catalytic activity/Vol] 9 U/L Normal <=34 [facility] Comment on above: Performed By: #### L 506.1001, L100.0100, L500.4050, L500.4100 ####[facility] [address] [place], [address] AST [Catalytic activity/Vol] 18 U/L Normal <=31 [facility] Comment on above: Performed By: #### L 506.1001, L100.0100, L500.4050, L500.4100 ####[facility] [address] [place], [address] Bilirubin [Mass/Vol] 0.56 mg/dL Normal 0.00-1.30 [facility] Comment on above: Performed By: #### L 506.1001, L100.0100, L500.4050, L500.4100 ####[facility] [address] [place], [address] BUN/CRE 15.0 RATIO Normal 10-20 [facility] Comment on above: Performed By: #### L 506.1001, L100.0100, L500.4050, L500.4100 ####[facility] [address] [place], [address] Calcium [Mass/Vol] 9.1 mg/dL Normal 7.6-11.0 [facility] Comment on above: Performed By: #### L 506.1001, L100.0100, L500.4050, L500.4100 ####[facility] [address] [place], [address] Chloride [Moles/Vol] 104 mmol/L Normal 98-108 [facility] Comment on above: Performed By: #### L 506.1001, L100.0100, L500.4050, L500.4100 ####[facility] [address] [place], [address] CO2 [Moles/Vol] 24.7 mmol/L Normal 21.0-32.0 [facility] Comment on above: Performed By: #### L 506.1001, L100.0100, L500.4050, L500.4100 ####[facility] [address] [place], [address] Creatinine [Mass/Vol] 0.64 mg/dL Low 0.70-1.20 [facility] Comment on above: Performed By: #### L 506.1001, L100.0100, L500.4050, L500.4100 ####[facility] [address] [place], [address] GAP 11 Normal 5-15 [facility] Comment on above: Performed By: #### L 506.1001, L100.0100, L500.4050, L500.4100 ####[facility] [address] [place], [address] GFR/1.73 sq M.predicted among non-blacks MDRD (S/P/Bld) [Vol rate/Area] 112 mL/min/{1.73_m2} Normal >60 [facility] Comment on above: Result Comment: mL/m in/1.73m2 CKD-EPI Creatinine Equation (2020) Performed By: #### L 506.1001, L100.0100, L500.4050, L500.4100 ####[facility] [address] [place], [address] Globulin (S) [Mass/Vol] 2.1 g/dL Low 2.2-4.2 [facility] Comment on above: Performed By: #### L 506.1001, L100.0100, L500.4050, L500.4100 ####[facility] [address] [place], [address] Glucose [Mass/Vol] 93 mg/dL Normal 70-99 [facility] Comment on above: Performed By: #### L 506.1001, L100.0100, L500.4050, L500.4100 ####[facility] [address] [place], [address] Potassium [Moles/Vol] 4.0 mmol/L Normal 3.3-5.1 [facility] Comment on above: Performed By: #### L 506.1001, L100.0100, L500.4050, L500.4100 ####[facility] [address] [place], [address] Sodium [Moles/Vol] 140 mmol/L Normal 133-145 [facility] Comment on above: Performed By: #### L 506.1001, L100.0100, L500.4050, L500.4100 ####[facility] [address] [place], [address] T PROT 6.7 g/dL Normal 5.9-8.4 [facility] Comment on above: Performed By: #### L 506.1001, L100.0100, L500.4050, L500.4100 ####[facility] [address] [place], [address] Urea nitrogen [Mass/Vol] 10 mg/dL Normal 4-19 [facility] Comment on above: Performed By: #### L 506.1001, L100.0100, L500.4050, L500.4100 ####[facility] [address] [place], [address] Lipid Profileon 11-21-2024 CHOL:HDL 2.61 Normal [facility] Comment on above: Performed By: #### L 506.1001, L100.0100, L500.4050, L500.4100 ####[facility] [address] [place], [address] Cholesterol [Mass/Vol] 166 mg/dL Normal <=200 [facility] Comment on above: Result Comment: Chol esterol level, Desirable <200 mg/dL Borderline high cholesterol 200-239 mg/dL High cholesterol >=240 mg/dL Recommendations of the NCEP Adult Treatment Panel for the following risk-cutoff thresholds for the [place] population. Performed By: #### L 506.1001, L100.0100, L500.4050, L500.4100 ####[facility] [address] [place], [address] Cholesterol in HDL [Mass/Vol] 64 mg/dL Normal [facility] Comment on above: Result Comment: Lia onal Cholesterol Education Program (NCEP) guidelines: <40 mg/dL: Low HDL-cholesterol (major risk factor for CHD) >= 60 mg/dL: High HDL-cholesterol (negative risk factor for CHD) HDL-cholesterol is affected by a number of factors, e.g. smoking, exercise, hormones, sex and age. Performed By: #### L 506.1001, L100.0100, L500.4050, L500.4100 ####[facility] [address] [place], [address] Cholesterol in LDL [Mass/Vol] 90 mg/dL Normal [facility] Comment on above: Result Comment: Bord jziwdp=875-630 mg/dL Higher Tnie=564 mg/dL or greater Friedwald Equation for LDL-C Performed By: #### L 506.1001, L100.0100, L500.4050, L500.4100 ####[facility] [address] [place], [address] Cholesterol in VLDL [Mass/Vol] 13 mg/dL Normal 5-40 [facility] Comment on above: Performed By: #### L 506.1001, L100.0100, L500.4050, L500.4100 ####[facility] [address] [place], [address] Triglyceride [Mass/Vol] 63 mg/dL Normal [facility] Comment on above: Result Comment: The drugs N-Acetylcysteine and Metamizole may falsely depress this assay. Normal range: <150 mg/dL Borderline High: 150-199 mg/dL High: 200-499 mg/dL Very High: >500 mg/dL Performed By: #### L 506.1001, L100.0100, L500.4050, L500.4100 ####[facility] [address] [place], [address] Vitamin D,25 Hydroxyon 11-21 Vitamin D 25-OH 31.8 ng/mL Normal 30-100 [facility] Comment on above: Result Comment: Mouna min D Status Deficiency: <20 ng/mL (50nmol/L) Insufficiency: 20-30 ng/mL (50-75 nmol/L) Sufficiency: 30-100 ng/mL (75-250 nmol/L) Toxicity: >100 ng/mL (>250 nmol/L) Performed By: #### L 506.1001, L100.0100, L500.4050, L500.4100 ####[facility] [address] [place], [address] Internal Medicine Office Vis meena 11-16-2024 Internal Medicine Office Visit [facility] Internal [address] [place] [address] [place] [address] OFFICE VISIT Date of Service: 11/16/24 MR#: [id number] Acct: [id number] Name: YESENIA MARTIN Rep #: [id number] : 1980 Provider: Dr. Carmen albarran MD Age/Sex: 43/F Location: [facility] Status: Signed Intake Vital Signs 09/13/24 10:38 11/16/24 12:53 Height 5 ft 2 in 5 ft 2 in Weight: 130 lb BMI 23.8 BP 134/80 H Blood Pressure Location Lt brachial Position Sitting Respiration 17 Pulse 75 Pulse Source Monitor Temp 97.7 F L Temp Source Temporal Pulse Oximetry (%) 97 Oxygen Delivery Method room air Intake Visit Reasons: 6 M FU Chief Complaint: Follow-up Is patient in pain?: Yes (3 all over ) Allergies cortisone Allergy (Intermediate, Verified 11/16/24 12:54) Rash Dressing: Non-Medicated (bandage) Allergy (Verified 11/16/24 12:54) Rash Medications ???Medication ???Instructions ???Recorded ???Confirmed ???Type duloxetine 30 mg capsule,delayed 30 mg PO QDAY 11/02/24 11/16/24 Hi story release [facility] Medical History (Updated 11/16/24 @ 13:[address] Carmen Jang MD) Health care maintenance Hypertension Wears glasses Alcohol use Restless legs Multiple [...] at home: Yes HPI HPI Chief Complaint: Follow-up Details: YESENIA MARTIN, is a 43 F who presents to the office today for follow-up Established 6 months ago and at that time her blood pressure was elevated. Initial blood pressure in office was at 134/80 however following rest, did come down to 124/80. She states that she has been monitoring these at home and her readings have been overall stable. No significant personal or family history changes since her last visit. Now has been diagnosed with multiple sclerosis following workup and plan is to start treatment. She had some apprehension about this but overall glad that she finally has a diagnosis. History of hysterectomy. Yet to get her mammogram done. Would like to get the flu shot today ROS Const Constitutional: No body ache, chills, excessive sweating, fatigue, fever(s), frequent falls, headache(s), snoring, weight change, sleep problems, abnormal sleep pattern or change in appetite Eyes Eyes: No blurry vision, change in vision, vision loss, dry eyes, eye pain or Light sensitivity ENT ENT: No abnormal hearing, ear or mastoid pain, tinnitus, nasal congestion, headache(s), neck pain or sore throat Resp Respiratory: No cough, excessive phlegm production, hemoptysis, shortness of breath, snoring or wheezing Cardio Cardiology: No chest pain at rest, chest pain with exertion, excessive sweating, shortness of breath, dyspnea on exertion, lightheadedness, orthopnea or palpitations Gastro GI: No abdominal pain, change in bowel habits, constipation, cramping, diarrhea, nausea/dyspepsia or vomiting Genitourinary-Female: No burning urination, painful urination, urinary incontinence, urinary frequency, abnormal vaginal bleeding or pelvic pain Musc Musculoskeletal: No abnormal gait, joint pain, back pain, limited range of motion, neck pain, numbness or tingling Skin Skin: No dry skin, redness, lesions, itchy eyes, rash or wounds Neuro Neurology: No abnormal gait, abnormal hearing, frequent falls, headache(s), memory loss, numbness or tingling Psych Psychiatric: No abnormal sleep pattern, No anxiety, No change in appetite, No irritability, No memory loss and No Thoughts of harming yourself/Others Endo Endocrine: No cold intolerance, excessi (more content not included)... Normal [facility] Magnetic resonance imaging r eportOrdered By: Codie Adams on 11-03-2024 Study report [facility] Imaging Services [address] [place] [address] Brain W/WO Contrast MR#: [id number] Acct: [id number] Name: YESENIA MARTIN Rep #: [id number] : 1980 F 43 From: Rakesh Adams MD PCP: Dr. Carmen Jang MD Status: R EG CLI Study:Brain W/WO Contrast Date of Exam: 11/02/24 Exam# [id number] Ordering Dr: Sanjay Ambrose MD PROCEDURE: BRAIN W/WO CONTRAST 11/02/2024 REASON FOR EXAM: DEMYELINATING DISEASE OF CENTRAL NERVOUS SYSTEM TECHNIQUE: Procedure Code: MRIBRWW Modality: MR Procedure: BRAIN W/WO CONTRAST Multiplanar and multisequence images were obtained. CONTRAST: Clariscan VOLUME: 10 mL COMPARISON: 07-May-2024 FINDINGS: No hyperacute or acute infarctions could be depicted. No intracerebral or extra-axial acute hemorrhage. No enhancing masses. Bilateral cerebral predominantly subcortical and to less extent periventricular foci of isointense T1 and high T2/FLAIR signal. No post contrast enhancement perifocal edema or mass effect. Normal appearance of the corpus callosum. Normal MRI appearance of the cerebellum and brain stem. Normal appearance of the ventricular system. No midline shift. Normal MRI appearance of the petrous temporal bones and cerebellopontine angles with no obvious masses. No shift of midline structures. Normal MRI appearance of orbital structures, both globes, optic nerves, optic chiasm, optic tracts and optic radiations. Scanned paranasal sinuses show left maxillary retention cyst. MRI/Brain W/WO Contrast IMPRESSION: Stable bilateral cerebral foci of altered signal as described. No acute infarcts, intracerebral or extra-axial hematomas or enhancing masses. Reading [facility] CC: Dr. Gareth Ambrose MD; Dr. Carmen Jang MD ~ Pantry Attendant: Signed [facility] Brain W/WO Contraston 2024 Brain W/WO Contrast [facility] [address] [place], [place] [address] Brain W/WO Contrast MR#: [id number] Acct: [id number] Name: YESENIA MARTIN Rep #: [id number] : 1980 F 43 From: Codie birmingham MD PCP: Dr. Carmen Jang MD Status: REG CLI Study: Brain W/WO Contrast Date of Exam: 11/02/24 Exam# [id number] Ordering Dr: Gareth Ambrose MD PROCEDURE: BRAIN W/WO CONTRAST 11/02/2024 REASON FOR EXAM: DEMYELINATING DISEASE OF CENTRAL NERVOUS SYSTEM TECHNIQUE: Procedure Code: MRIBRWW Modality: MR Procedure: BRAIN W/WO CONTRAST Multiplanar and multisequence images were obtained. CONTRAST: Clariscan VOLUME: 10 mL COMPARISON: 07-May-2024 FINDINGS: No hyperacute or acute infarctions could be depicted. No intracerebral or extra-axial acute hemorrhage. No enhancing masses. Bilateral cerebral predominantly subcortical and to less extent periventricular foci of isointense T1 and high T2/FLAIR signal. No post contrast enhancement perifocal edema or mass effect. Normal appearance of the corpus callosum. Normal MRI appearance of the cerebellum and brain stem. Normal appearance of the ventricular system. No midline shift. Normal MRI appearance of the petrous temporal bones and cerebellopontine angles with no obvious masses. No shift of midline structures. Normal MRI appearance of orbital structures, both globes, optic nerves, optic chiasm, optic tracts and optic radiations. Scanned paranasal sinuses show left maxillary retention cyst. MRI/Brain W/WO Contrast IMPRESSION: Stable bilateral cerebral foci of altered signal as described. No acute infarcts, intracerebral or extra-axial hematomas or enhancing masses. Reading Location[facility] CC: Dr. Gareth Ambrose MD; Dr. Carmen Jang MD Pantry Attendant: Signed Normal [facility] Cerv Spine 2 or 3 Viewson Cerv Spine 2 or 3 Views [facility] [address] [place] [address] Cerv Spine 2 or 3 Views MR#: [id number] Acct: [id number] Name: YESENIA MARTIN Rep #: [id number] : 1980 F 43 From: Jessica Avendano MD PCP: Dr. Carmen Jang MD Status: DEP AMB Study: Cerv Spine 2 or 3 Views Date of Exam: 11/02/24 Exam# [id number] Ordering Dr: Ely Salas PROCEDURE: CERV SPINE 2 OR 3 VIEWS 11/02/2024 REASON FOR EXAM: POST OP TECHNIQUE: Procedure Code: RADSPCL Modality: DX Procedure: CERV SPINE 2 OR 3 VIEWS COMPARISON: 09/13/2024 and 08/01/2024 FINDINGS: PRIOR SURGERY/HARDWARE: Metallic disc prostheses within the C4-C5 and C5-C6 intervertebral disc spaces showing stable alignment. Prior ACDF with fusion hardware and interbody fusion device at C6-C7. No evidence of hardware failure or loosening. BONES: No fracture or focal osseous lesion. Anatomic spinal alignment. DISC/DEGENERATIVE CHANGES: Disc spaces are preserved. SOFT TISSUES: No acute abnormality seen. RAD/Cerv Spine 2 or 3 Views IMPRESSION: Postoperative changes without signs of complication. Reading Location: [facility] CC: RAJI Jung; Dr. Carmen Jang MD Pantry Attendant: Signed Normal [facility] Orthopedic Visit Reporton Orthopedic Visit Report [facility] [address] [place] [address] [address] [place] [address] OFFICE VISIT Date of Service: 11/02/24 MR#: [id number] Acct: [id number] Name: YESENIA MARTIN Rep #: [id number] : 1980 Provider: RAJI Jung Age/Sex: 43/F Location[place] [facility] Status: Signed Intake Vital Signs 07/31/24 17:28 09/13/24 10:38 Height 5 ft 2 in 5 ft 2 in Intake Visit Reasons: CERVICAL SPINE Chief Complaint: 3 month post-op Allergies cortisone Allergy (Intermediate, Verified 11/02/24 10:17) Rash Dressing: Non-Medicated (bandage) Allergy (Verified 11/02/24 10:17) Rash Medications ???Medication ???Instructions ???Recorded ???Confirmed ???Type duloxetine 30 mg capsule,delayed 30 mg PO QDAY 11/02/24 11/02/24 Hi story release PFSH Medical History Wears glasses Alcohol use [...] service provided and the decisions made by Ely nieves PA 11/02/24 1015. Part of today???s visit was documented by Melissa GARRETT, acting as scribe. YESENIA MARTIN is a 43 year old F here today for 3 month post-op C4-5 cervical disc replacement, revision anterior approach dos: 07/31/24. She states that she is doing better and that physical therapy is helping with her strengthening. She does have pain at time if she over does it. She does take Advil for pain as needed. She did recently see a neurologist regarding MS and goes for a follow-up MRI today. She was also put on Cymbalta for pain by her neurologist. Only been on for a week. She does continue to to have the numbness and tingling but her neurologist things that is coming from her MS. She sees Dr. Ambrose with [facility] in [place]. Ortho Exam General General: Yes no acute distress Neurologic: Yes alert and Yes oriented x3 Psychologic: Yes reasonable and appropriate Spine SPINE TESTING CERVICAL THORACIC LUMBAR Musculoskeletal Strength 0=absent - 5=normal Details: Neurological exam of the upper extremities shows 5X5 power. Normal sensation across all dermatomes. Physical examination of the neck shows a well-healed midline incision. Coding Level of Care Code Off vis,est,level 3 Diagnoses S/P cervical disc replacement Z98.890 Cervical radiculopathy M54.12 Assessment and Plan Assessment and Plan (1) S/P cervical disc replacement: Status: Acute (2) Cervical radiculopathy: Orders: Orders Cerv Spine 2 or 3 Views Today Z98.890 - Other specified postprocedural states Plan Obtained to reviewed cervical x-rays today in the clinic. Independent interpretation of the x-rays was performed. X-rays show disc replacement prosthesis at C4-5 in good position. All other hardware appears to be in good position. The patient is now 3 months out C4-5 disc replacement with revision of prior hardware. The patient does continue to have bilateral numbness and tingling. She does believe that the surgery did help with some of the neck pain that she was experiencing. The patient is continuing to follow with neurology for evaluation of multiple sclerosis. Says that she is scheduled for an MRI later today for this evaluation. She recently has started Cymbalta for her symptoms without any significant improvement however it has been 1 week since she for started taking this medication. From our end, discussed that there are no more restrictions of bending lifting or twisting. Encouraged the patient to continue to do (more content not included)... Normal [facility] .Auto Diffon 10-23-2024 Basophil, Absolute 0.0 10 3/mcL Normal 0.0-0.3 [facility] Comment on above: Performed By: #### H BCM, HCV1, IMMUN, HBSAG #### [place] [address] #### CBC, ADIFF, ANEU, CMP, GFR #### [address] [address] Basophils/100 WBC (Bld) 0.3 % Normal 0.0-2.5 [facility] Comment on above: Performed By: #### H BCM, HCV1, IMMUN, HBSAG #### [place] [address] #### CBC, ADIFF, ANEU, CMP, GFR #### [address] [address] Eosinophil, Absolute 0.1 10 3/mcL Normal 0.0-0.7 [facility] Comment on above: Performed By: #### H BCM, HCV1, IMMUN, HBSAG #### [place] [address] #### CBC, ADIFF, ANEU, CMP, GFR #### [address] [address] Eosinophils/100 WBC (Bld) 1.1 % Normal 0.0-6.0 [facility] Comment on above: Performed By: #### H BCM, HCV1, IMMUN, HBSAG #### [place] [address] #### CBC, ADIFF, ANEU, CMP, GFR #### [address] [address] Lymphocyte, Absolute 0.5 10 3/mcL Low 0.9-4.3 [facility] Comment on above: Performed By: #### H BCM, HCV1, IMMUN, HBSAG #### [place] [address] #### CBC, ADIFF, ANEU, CMP, GFR #### [address] [address] Lymphocytes/100 WBC (Bld) 7.9 % Low 20.0-40.0 [facility] Comment on above: Performed By: #### H BCM, HCV1, IMMUN, HBSAG #### [place] [address] #### CBC, ADIFF, ANEU, CMP, GFR #### [address] [address] Monocyte, Absolute 0.4 10 3/mcL Normal 0.1-1.4 [facility] Comment on above: Performed By: #### H BCM, HCV1, IMMUN, HBSAG #### [place] [address] #### CBC, ADIFF, ANEU, CMP, GFR #### [address] [address] Monocytes/100 WBC (Bld) 6.3 % Normal 2.0-13.0 [facility] Comment on above: Performed By: #### H BCM, HCV1, IMMUN, HBSAG #### [place] [address] #### CBC, ADIFF, ANEU, CMP, GFR #### [address] [address] Neutrophils/100 WBC (Bld) 84.4 % High 50.0-75.0 [facility] Comment on above: Performed By: #### H BCM, HCV1, IMMUN, HBSAG #### [place] [address] #### CBC, ADIFF, ANEU, CMP, GFR #### [address] [address] .GFRon 10-23-2024 Estimated Glomerular Filtration Rate 110 ml/min/1.73sqm Normal [facility] Comment on above: Result Comment: Stages of Chronic Kidney Disease (CKD) Stage Description eGFR(ml/min/1.73 sq.m.) CKD 1 Normal kidney function or >=90 normal kindney function with possible kidney damage (ex. Proteinuria) CKD 2 Kidney damage with mild loss 60-89 of kidney function CKD 3a Mild to moderate loss of kidney 45-59 function CKD 3b Moderate to severe loss of 30-44 of kindey function CKD 4 Severe loss of kidney function 15-29 CKD 5 Kidney failure <15 Note: (go live 2024) the eGFR calculation was updated to the 2020 CKD-EPI creatinine equation without a race factor to calculate the eGFR results. Performed By: #### H BCM, HCV1, IMMUN, HBSAG #### [place] [address] #### CBC, ADIFF, ANEU, CMP, GFR #### [address] [address] .NEUABSon 10-23-2024 Neutrophil, Absolute 5.1 10 3/mcL Normal 2.3-8.1 [facility] Comment on above: Performed By: #### H BCM, HCV1, IMMUN, HBSAG #### [place] [address] #### CBC, ADIFF, ANEU, CMP, GFR #### [address] [address] CBCon 10-23-2024 Erythrocyte distribution width (RBC) [Ratio] 13.0 % Normal 11.5-15.5 [facility] Comment on above: Performed By: #### H BCM, HCV1, IMMUN, HBSAG #### [place] [address] #### CBC, ADIFF, ANEU, CMP, GFR #### [address] [address] Hematocrit (Bld) [Volume fraction] 39.3 % Normal 34.0-46.0 [facility] Comment on above: Performed By: #### H BCM, HCV1, IMMUN, HBSAG #### [place] [address] #### CBC, ADIFF, ANEU, CMP, GFR #### [place] [address] Hgb 13.5 G/dL Normal 12.0-16.0 [facility] Comment on above: Performed By: #### H BCM, HCV1, IMMUN, HBSAG #### [place] [address] #### CBC, ADIFF, ANEU, CMP, GFR #### [place] [address] MCH (RBC) [Entitic mass] 29.6 pg Normal 27.0-33.0 [facility] Comment on above: Performed By: #### H BCM, HCV1, IMMUN, HBSAG #### [place] [address] #### CBC, ADIFF, ANEU, CMP, GFR #### [place] [address] MCHC 34.4 G/dL Normal 32.0-36.0 [facility] Comment on above: Performed By: #### H BCM, HCV1, IMMUN, HBSAG #### [place] [address] #### CBC, ADIFF, ANEU, CMP, GFR #### [place] [address] MCV (RBC) [Entitic vol] 86.0 fL Normal 80.0-99.0 [facility] Comment on above: Performed By: #### H BCM, HCV1, IMMUN, HBSAG #### [place] [address] #### CBC, ADIFF, ANEU, CMP, GFR #### [place] [address] Platelet 203 10 3/mcL Normal 150-450 [facility] Comment on above: Performed By: #### H BCM, HCV1, IMMUN, HBSAG #### [place] [address] #### CBC, ADIFF, ANEU, CMP, GFR #### [address] [address] Platelet mean volume (Bld) [Entitic vol] 8.4 fL Normal 6.6-10.5 [facility] Comment on above: Performed By: #### H BCM, HCV1, IMMUN, HBSAG #### [place] [address] #### CBC, ADIFF, ANEU, CMP, GFR #### [address] [address] RBC 4.56 10 6/mcL Normal 4.10-5.30 [facility] Comment on above: Performed By: #### H BCM, HCV1, IMMUN, HBSAG #### [place] [address] #### CBC, ADIFF, ANEU, CMP, GFR #### [address] [address] WBC 6.0 10 3/mcL Normal 4.5-10.8 [facility] Comment on above: Performed By: #### H BCM, HCV1, IMMUN, HBSAG #### [place] [address] #### CBC, ADIFF, ANEU, CMP, GFR #### [address] [address] CMPon 10-23-2024 Albumin Level 4.1 G/dL Normal 3.5-5.0 [facility] Comment on above: Performed By: #### H BCM, HCV1, IMMUN, HBSAG #### [place] [address] #### CBC, ADIFF, ANEU, CMP, GFR #### [place] [address] Albumin/Globulin [Mass ratio] 1.4 {ratio} Normal 1.1-2.5 [facility] Comment on above: Performed By: #### H BCM, HCV1, IMMUN, HBSAG #### [place] [address] #### CBC, ADIFF, ANEU, CMP, GFR #### [place] [address] ALP [Catalytic activity/Vol] 35 U/L Low 40-135 [facility] Comment on above: Performed By: #### H BCM, HCV1, IMMUN, HBSAG #### [place] [address] #### CBC, ADIFF, ANEU, CMP, GFR #### [place] [address] ALT [Catalytic activity/Vol] 17 U/L Normal 14-59 [facility] Comment on above: Performed By: #### H BCM, HCV1, IMMUN, HBSAG #### [place] [address] #### CBC, ADIFF, ANEU, CMP, GFR #### [place] [address] AST [Catalytic activity/Vol] 14 U/L Normal 10-40 [facility] Comment on above: Performed By: #### H BCM, HCV1, IMMUN, HBSAG #### [place] [address] #### CBC, ADIFF, ANEU, CMP, GFR #### [place] [address] Bili Total 0.8 mg/dL Normal 0.2-1.0 [facility] Comment on above: Result Comment: Use of this assay is not recommended for patients undergoing treatment with eltrombopag due to the potential for falsely elevated results. Performed By: #### H BCM, HCV1, IMMUN, HBSAG #### [place] [address] #### CBC, ADIFF, ANEU, CMP, GFR #### [place] [address] BUN/Creatinine Ratio 9 ratio Normal 7-27 [facility] Comment on above: Performed By: #### H BCM, HCV1, IMMUN, HBSAG #### [place] [address] #### CBC, ADIFF, ANEU, CMP, GFR #### [address] [address] Calcium [Mass/Vol] 9.0 mg/dL Normal 8.4-10.2 [facility] Comment on above: Performed By: #### H BCM, HCV1, IMMUN, HBSAG #### [place] [address] #### CBC, ADIFF, ANEU, CMP, GFR #### [place] [address] Chloride [Moles/Vol] 103 mmol/L Normal 98-107 [facility] Comment on above: Performed By: #### H BCM, HCV1, IMMUN, HBSAG #### [place] [address] #### CBC, ADIFF, ANEU, CMP, GFR #### [place] [address] CO2 [Moles/Vol] 31 mmol/L High 22-29 [facility] Comment on above: Performed By: #### H BCM, HCV1, IMMUN, HBSAG #### [place] [address] #### CBC, ADIFF, ANEU, CMP, GFR #### [place] [address] Creatinine [Mass/Vol] 0.70 mg/dL Normal 0.51-0.95 [facility] Comment on above: Performed By: #### H BCM, HCV1, IMMUN, HBSAG #### [place] [address] #### CBC, ADIFF, ANEU, CMP, GFR #### [place] [address] Electrolyte Balance 6.0 mEq/L Normal 4.0-15.0 [facility] Comment on above: Performed By: #### H BCM, HCV1, IMMUN, HBSAG #### [place] [address] #### CBC, ADIFF, ANEU, CMP, GFR #### [address] [address] Globulin 2.9 G/dL Normal 2.7-4.4 [facility] Comment on above: Performed By: #### H BCM, HCV1, IMMUN, HBSAG #### [place] [address] #### CBC, ADIFF, ANEU, CMP, GFR #### [address] [address] Glucose [Mass/Vol] 103 mg/dL Normal 70-105 [facility] Comment on above: Performed By: #### H BCM, HCV1, IMMUN, HBSAG #### [place] [address] #### CBC, ADIFF, ANEU, CMP, GFR #### [place] [address] Potassium [Moles/Vol] 3.9 mmol/L Normal 3.5-5.1 [facility] Comment on above: Performed By: #### H BCM, HCV1, IMMUN, HBSAG #### [place] [address] #### CBC, ADIFF, ANEU, CMP, GFR #### [place] [address] Sodium [Moles/Vol] 140 mmol/L Normal 136-145 [facility] Comment on above: Performed By: #### H BCM, HCV1, IMMUN, HBSAG #### [place] [address] #### CBC, ADIFF, ANEU, CMP, GFR #### [address] [address] Total Protein 7.0 G/dL Normal 6.4-8.2 [facility] Comment on above: Performed By: #### H BCM, HCV1, IMMUN, HBSAG #### [place] [address] #### CBC, ADIFF, ANEU, CMP, GFR #### [address] [address] Urea nitrogen [Mass/Vol] 6 mg/dL Low 7-18 [facility] Comment on above: Performed By: #### H BCM, HCV1, IMMUN, HBSAG #### [place] [address] #### CBC, ADIFF, ANEU, CMP, GFR #### [address] [address] HBCMon 10-23-2024 Hep B Core IgM Ab Non-Reactive Normal Non-Reactive [facility] Comment on above: Performed By: #### H BCM, HCV1, IMMUN, HBSAG #### [place] [address] #### CBC, ADIFF, ANEU, CMP, GFR #### [place] [address] Hep B Core IgM Ab Int See Interp Normal [facility] Comment on above: Result Comment: Clinical Interpretation: Samples with a value < 0.80 Index are considered nonreactive (negative) for IgM antibodies to hepatitis B core antigen. Performed By: #### H BCM, HCV1, IMMUN, HBSAG #### [place] [address] #### CBC, ADIFF, ANEU, CMP, GFR #### [address] [address] HBSAGon 10-23-2024 Hep B Surf Ag Non-Reactive Normal Non-Reactive [facility] Comment on above: Performed By: #### H BCM, HCV1, IMMUN, HBSAG #### [place] [address] #### CBC, ADIFF, ANEU, CMP, GFR #### [place] [address] HCVon 10-23-2024 Hep C Ab Non-Reactive Normal [facility] Comment on above: Performed By: #### H BCM, HCV1, IMMUN, HBSAG #### [place] [address] #### CBC, ADIFF, ANEU, CMP, GFR #### [address] [address] Hep C Ab Int See Interp Normal [facility] Comment on above: Result Comment: Clinical Interpretation: Nonreactive: Samples with a value < 0.80 are considered nonreactive (negative) for antibodies to HCV. A negative test result does not exclude the possibility of exposure to or infection with HCV. HCV antibodies may be undetectable in some stages of the infection and in some clinical conditions. Performed By: #### H BCM, HCV1, IMMUN, HBSAG #### [place] [address] #### CBC, ADIFF, ANEU, CMP, GFR #### [address] [address] IMMUNon 10-23-2024 IgA [Mass/Vol] 103 mg/dL Normal 40-350 [facility] Comment on above: Performed By: #### H BCM, HCV1, IMMUN, HBSAG #### [place] [address] #### CBC, ADIFF, ANEU, CMP, GFR #### [address] [address] IgG [Mass/Vol] 796 mg/dL Normal 650-1600 [facility] Comment on above: Result Comment: No te - New Reference Range in effect 19 Performed By: #### H BCM, HCV1, IMMUN, HBSAG #### [place] [address] #### CBC, ADIFF, ANEU, CMP, GFR #### [address] [address] IgM [Mass/Vol] 74 mg/dL Normal 50-300 [facility] Comment on above: Result Comment: No te - New Reference Range in effect 19 Performed By: #### H BCM, HCV1, IMMUN, HBSAG #### [place] [address] #### CBC, ADIFF, ANEU, CMP, GFR #### [address] [address] LABORATORYOrdered By: SYSTEM SYSTEM on 10-23-2024 Albumin BCP dye [Mass/Vol] 4.1 G/dL Normal 3.5 - 5.0 G/dL AO ADM SS Albumin/Globulin [Mass ratio] 1.4 {ratio} Normal 1.1 - 2.5 ratio AO ADM SS ALP [Catalytic activity/Vol] 35 U/L Low 40 - 135 U/L AO ADM SS ALT With P-5'-P [Catalytic activity/Vol] 17 U/L Normal 14 - 59 U/L AO ADM SS AST With P-5'-P [Catalytic activity/Vol] 14 U/L Normal 10 - 40 U/L AO ADM SS Basophils (Bld) [#/Vol] 0.0 103/mcL Normal 0.0 - 0.3 10^3/mcL AO Workflow SS Basophils/100 WBC (Bld) 0.3 % Normal 0.0 - 2.5 % AO Workflow SS Bilirubin [Mass/Vol] 0.8 mg/dL Normal 0.2 - 1 .0 mg/dL AO ADM SS Comment on above: Interpretive Data: U se of this assay is not recommended for patients undergoing treatment with eltrombopag due to the potential for falsely elevated results. Calcium [Mass/Vol] 9.0 mg/dL Normal 8.4 - 10. 2 mg/dL AO ADM SS Chloride [Moles/Vol] 103 mmol/L Normal 98 - 10 7 mmol/L AO ADM SS CO2 [Moles/Vol] 31 mmol/L High 22 - 29 mmol/L AO ADM SS Creatinine [Mass/Vol] 0.70 mg/dL Normal 0.51 - 0.95 mg/dL AO ADM SS Electrolyte Balance 6.0 mEq/L Normal 4.0 - 15 .0 mEq/L AO ADM SS Eosinophil, Absolute 0.1 103/mcL Normal 0.0 - 0 .7 10^3/mcL AO Workflow SS Eosinophils/100 WBC (Bld) 1.1 % Normal 0.0 - 6.0 % AO Workflow SS Erythrocyte distribution width (RBC) [Ratio] 13.0 % Normal 11.5 - 15.5 % AO Workflow SS Estimated Glomerular Filtration Rate 110 ml/min/1.73sqm Invalid Interpretation Code AO Chemistry S Comment on above: Interpretive Data: Stages of Chronic Kidney Disease (CKD) Stage Description eGFR(ml/min/1.73 sq.m.) CKD 1 Normal kidney function or >=90 normal kindney function with possible kidney damage (ex. Proteinuria) CKD 2 Kidney damage with mild loss 60-89 of kidney function CKD 3a Mild to moderate loss of kidney 45-59 function CKD 3b Moderate to severe loss of 30-44 of kindey function CKD 4 Severe loss of kidney function 15-29 CKD 5 Kidney failure <15 Note: (go live 2024) the eGFR calculation was updated to the 2020 CKD-EPI creatinine equation without a race factor to calculate the eGFR results. Globulin 2.9 G/dL Normal 2.7 - 4.4 G/dL AO ADM SS Glucose [Mass/Vol] 103 mg/dL Normal 70 - 105 mg/dL AO ADM SS Hematocrit (Bld) [Volume fraction] 39.3 % Normal 34.0 - 46.0 % AO Workflow SS Hemoglobin (Bld) [Mass/Vol] 13.5 G/dL Normal 12.0 - 16.0 G/dL AO Workflow SS IgA [Mass/Vol] 103 mg/dL Normal 40 - 350 mg/dL AH ADM SS IgG [Mass/Vol] 796 mg/dL Normal 650 - 1600 mg/dL ADM SS Comment on above: Interpretive Data: * *Note - New Reference Range in effect 19 IgM [Mass/Vol] 74 mg/dL Normal 50 - 300 mg/dL ADM SS Comment on above: Interpretive Data: * *Note - New Reference Range in effect 19 Lymphocytes (Bld) [#/Vol] 0.5 103/mcL Low 0.9 - 4.3 10^3/mcL AO Workflow SS Lymphocytes/100 WBC (Bld) 7.9 % Low 20.0 - 40.0 % AO Workflow SS MCH (RBC) [Entitic mass] 29.6 pg Normal 27.0 - 33.0 pg AO Workflow SS MCHC 34.4 G/dL Normal 32.0 - 36.0 G/dL AO Workflow SS MCV (RBC) [Entitic vol] 86.0 fL Normal 80.0 - 99.0 fL AO Workflow SS Monocytes (Bld) [#/Vol] 0.4 103/mcL Normal 0.1 - 1.4 10^3/mcL AO Workflow SS Monocytes/100 WBC (Bld) 6.3 % Normal 2.0 - 13.0 % AO Workflow SS Neutrophils (Bld) [#/Vol] 5.1 103/mcL Normal 2.3 - 8.1 10^3/mcL AO Workflow SS Neutrophils/100 WBC (Bld) 84.4 % High 50.0 - 75.0 % AO Workflow SS Platelet mean volume (Bld) [Entitic vol] 8.4 fL Normal 6.6 - 10.5 fL AO Workflow SS Platelets (Bld) [#/Vol] 203 103/mcL Normal 150 - 450 10^3/mcL AO Workflow SS Potassium [Moles/Vol] 3.9 mmol/L Normal 3.5 - 5.1 mmol/L AO ADM SS Protein [Mass/Vol] 7.0 G/dL Normal 6.4 - 8.2 G/dL AO ADM SS RBC (Bld) [#/Vol] 4.56 106/mcL Normal 4.10 - 5.3 0 10^6/mcL AO Workflow SS Sodium [Moles/Vol] 140 mmol/L Normal 136 - 145 mmol/L AO ADM SS Urea nitrogen [Mass/Vol] 6 mg/dL Low 7 - 18 mg/dL AO ADM SS Urea nitrogen/Creatinine [Mass ratio] 9 ratio Normal 7 - 27 ratio AO ADM SS WBC (Bld) [#/Vol] 6.0 103/mcL Normal 4.5 - 10.8 10^3/mcL AO Workflow SS LABORATORYOrdered By: Amy Nagy on 10-23-2024 HBV core IgM IA Ql See Interp 5 *NA* (10/23/24 10:48 AM) Invalid Interpretation Code Chemistry S Comment on above: Result Comment: Clinical Interpretation: Samples with a value < 0.80 Index are considered nonreactive (negative) for IgM antibodies to hepatitis B core antigen. HBV core IgM IA Ql Non-Reactive (10/23/24 10:48 AM) Normal Non-Reactive AH ADM SS HBV surface Ag IA Ql Non-Reactive (10/23/24 10:48 AM) Normal Non-Reactive AH ADM SS HCV Ab IA Ql See Interp 6 *NA* (10/23/24 10:48 AM) Invalid Interpretation Code Chemistry S Comment on above: Result Comment: Clinical Interpretation: Nonreactive: Samples with a value < 0.80 are considered nonreactive (negative) for antibodies to HCV. A negative test result does not exclude the possibility of exposure to or infection with HCV. HCV antibodies may be undetectable in some stages of the infection and in some clinical conditions. HCV Ab IA Ql Non-Reactive (10/23/24 10:48 AM) Normal Non-Reactive AH ADM SS Cerv Spine 2 or 3 Viewson Cerv Spine 2 or 3 Views [facility] [address] [place] [address] Cerv Spine 2 or 3 Views MR#: [id number] Acct: [id number] Name: YESENIA MARTIN Rep #: [id number] : 1980 F 43 From: Wang Serrano MD PCP: Dr. Carmen Jang MD Status: DEP AMB Study: Cerv Spine 2 or 3 Views Date of Exam: 09/13/24 Exam# [id number] Ordering Dr: Ely Salas PROCEDURE: CERV SPINE 2 OR 3 VIEWS 09/13/2024 REASON FOR EXAM: Postop surveillance TECHNIQUE: CERV SPINE 2 OR 3 VIEWS COMPARISON: 08/16/2024 FINDINGS: Patient has undergone previous disc replacement surgery at C4-5 and C5-6 and anterior cervical fusion between C6 and C7. Hardware is intact and free of complication. No interval change since the previous study. Vertebrae: No acute fracture or suspicious osseous lesion disc spaces: Disc space narrowing throughout the C-spine unchanged from the previous study Alignment: Anatomic, there is loss of the natural lordotic curvature which is likely positional or due to pain soft tissues: Unremarkable Other: RAD/Cerv Spine 2 or 3 Views IMPRESSION: Stable postsurgical changes in the lower cervical spine, no acute findings or significant interval change since the previous study Disclaimer: Reading Location: [id number] CC: RAJI Jung; Dr. Carmen Jang MD Pantry Attendant: Signed Normal [facility] Orthopedic Visit Reporton Orthopedic Visit Report [facility] [address] [place] [address] [address] [place], [place] [id number] OFFICE VISIT Date of Service: 09/13/24 MR#: [id number] Acct: [id number] Name: YESENIA MARTIN Rep #: [id number] : 1980 Provider: RAJI Jung Age/Sex: 43/F Location[facility] Status: Signed Intake Vital Signs 06/22/24 09:28 07/31/24 17:28 Height 5 ft 2.5 in 5 ft 2 in Intake Visit Reasons: cervical spine Chief Complaint: 6 week post-op Accompanied by: Self Is patient in pain?: Yes Pain scale (1-10): 2 Allergies cortisone Allergy (Intermediate, Verified 09/13/24 10:02) Rash Dressing: Non-Medicated (bandage) Allergy (Verified 09/13/24 10:02) Rash Medications ???Medication ???Instructions ???Recorded ???Confirmed ???Type acetaminophen 325 mg tablet 325 mg PO ONCE PRN 08/16/24 History (Tylenol) PFSH Medical History Wears glasses [...] provided and the decisions made by me, RAJI Jung 09/13/24 0958. Part of today???s visit was documented by Shreya Salinas ATC, acting as scribe. YESENIA MARTIN is a 43 year old F here today for s/p C4-5 cervical disc replacement, revision anterior approach DOS 07/31/[address] Díaz. Patient rates her pain a 2/10 today and states it is very mild. She states she continues to get better and pain is continuing to decrease. She states she continues to have the numbness and tingling in the hands, arms, legs and feet that she had prior to surgery. She states she continues to get numbness/tingling in the back that goes down. She states she also gets pain in the lumbar spine as well. She denies any difficulty or trouble with swallowing following surgery. Ortho Exam General General: Yes no acute distress Neurologic: Yes alert and Yes oriented x3 Psychologic: Yes reasonable and appropriate Spine SPINE TESTING CERVICAL THORACIC LUMBAR Musculoskeletal Strength 0=absent - 5=normal Details: Neurological exam of the upper extremities shows 5X5 power. Normal sensation across all dermatomes. Physical examination of the neck shows a well-healed midline incision. Coding Level of Care Code Global Post Op Diagnoses S/P cervical disc replacement Z98.890 Assessment and Plan Assessment and Plan (1) S/P cervical disc replacement: Status: Acute Orders: Orders Cerv Spine 2 or 3 Views Today Z98.890 - Other specified postprocedural states Referrals Physical Therapy Referral M54.50 - Low back pain, unspecified Plan Obtained and reviewed cervical x-rays today in the clinic. Independent interpretation of the x-rays was performed. X-rays show prosthesis in good position. Patient is now 6 weeks out C4-5 disc replacement. She continues to work with physical therapy. She does continue to have numbness and tingling into the bilateral arms, worse on the left. Patient also mentions lower back pain and numbness and tingling that extends into her legs. She does say that she was recently seen by a provider assessing for MS which was negative. Recommend that she continue with physical therapy, a referral to physical therapy for her lower back was made so that they can begin to do stretches and exercises to increase back extensor and core strength. Reviewed restrictions and no bending, lifting, twisting until 3 months postop. It is okay for her to lift upwards of 2 gallons of milk (more content not included)... Normal [facility] Inital Evaluation (1) - PTon 08-24-2024 Inital Evaluation (1) - PT [facility] Physical Therapy [facility] [address] [place] [address] / REHABILITATION SERVICES INITIAL EVALUATION MR#: [id number] Acct: [id number] Name: YESENIA MARTIN Rep #: [id number] : 1980 43 From: Nyla Haywood PT, Roland. T, OCS Referring Dr.: Dr. Dg Díaz MD Status: REG RCR Insurance: [facility] [employer]URANCE Patient's Visit Information Visit Information Visit Information: YESENIA MARTIN is a 43 year old F referred to Physical Therapy by Dr. Dg Díaz MD with a diagnosis of S/P cervical disc replacement. Date of Evaluation: 08/23/24 Physical Therapist: Nyla Haywood PT, Cert T, OCS Visit Plan Frequency: 2x /Week Duration: 6 Weeks Plan: *S/P CERVICAL DISC PLACEMENT July *NO BLT * NO LIFTING EXCEPT GALLON OF MILK PT INTERVENTIONS GENTLE CERVICAL ROM , CERVICAL ISOMETRICS ,POSTURAL EX'S ,BUE STRENGTHENING ,AND ACTIVITY MODIFICATION , Subjective Subjective: 43 y/o female presents post-op cervical disc replacement on July 31 2024. Pt wore hard collar for 24hrs following procedure and then weaned off of it and Dr. orders are not to lift anything over 5 lbs and no BLT. Pt reports this is the 3rd cervical procedure she was with past history the first in 2019 for disc replacement and the second in 2023 for cervical fusion. Prior to the most recent surgery pt had numbness into both hand, legs, and into face with pain in left scapular region. Following the surgery pt is still experiencing numbness in both arms, legs, and face with pain located through posterior neck into primarily left side of shoulder but occasionally on the right. Pt is currently waiting to discuss MRI that revealed lesions in brain and is concerned for MS diagnosis. Neuro appt. scheduled on September 24. Pt reports feeling generally weak and has difficulty with grasp, drops thing often. Pt is still able perform ADL's but is painful especially overhead movement. Pt reports losing sleeping due to pain and not being able to get comfortable. Pt refused any pain medication aside from tylenol 6x a day and otherwise uses ice to manage pain. Pt increased use of tylenol after returning to work on August 20. Pt reports occasional dizziness, headaches starting from suboccipital region, and numbness as described from earlier but denies difficulty swallowing or speaking, double vision, fainting, or nausea. Pt also reports having occasional spasms in left hand and arm where it will curl up and release after a few seconds with stretching. 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 Hobbies: Basketball, Cornhole, Walking, Swimming, Bowling with kids: 23 y/o and 15 y/o Pain Bilateral Neck: Pain Intensity (Out of 10): 2 Pain Intensity Range: 2 and 7 Bilateral Hand: Pain Intensity (Out of 10): 2 Pain Intensity Range: 2 and 7 Bilateral Lower Extremity: Pain Intensity (Out of 10): 2 Pain Intensity Range: 0 and 7 Objective Objective: Posture: mild forward shoulder Palpation: Global cervical and upper thoracic tenderness rated 5/10 Cervical ROM: Moderate loss of gross cervical ROM with pain rated 2/10 in all directions Reflexes: normal with 2+ gross BEU UE MMT: Gross BUE strength 4/5 Grinder Set Up Operator Thread Tool Strength: Left 55lbs ; Right 70lbs (-)Rendon's (-) Clonus Balance/Special Test Scores Oswestry Neck Score: 26 Goals Goal 1:: Patient to decrease pain to improve quality of life and to allow for increased ability to participate in activities. Goal Time Frame: 4-6 Weeks Goal 2:: Patient to increase ROM to improve quality of life with daily activities and to allow for more participation in activities. Goal Time Frame: 4-6 Weeks Goal 3:: Patient to increase UE strength to improve ease with in ADL's and to prevent re-injury and increased pain in the furture. Goal Time Frame: 4-6 Weeks Goal 4:: Increased telephone interviewer strength by 5lbs for functional activities like grasping objects without dropping them Goal Time Frame: 4-6 Weeks Goal 5:: Improve Oswestry Neck Index score to 35% or less to improve quality of life and participation in activities. Goal Time Frame: 4-6 Weeks Rehabilitation Potential Physical Therapy Diagnosis: Patient presents with global cervical pain, decreased gross cervical ROM and strength as well as decreased upper extremity strength, left more diminished than right. Rehabilitation Potential: Good Anticipated Interventions Patient/Client Instruction: Educate patient on: Condition and Plan of Care For the Purpose of:: To decrease pain, To increase ROM, To improve muscle performance and motor function, To improve ability to perform ADL's, To increase tolerance to activity/condition/po sition, To improve performance and independence with ADL's, To improve ability of physical actions for home/community/work/l eisure, To improve health (more content not included)... Normal [facility] Cerv Spine 2 or 3 Viewson Cerv Spine 2 or 3 Views [facility] [address] [place], [place] [address] Cerv Spine 2 or 3 Views MR#: [id number] Acct: [id number] Name: YESENIA MARTIN Rep #: [id number] : 1980 F 43 From: Wang Serrano MD PCP: Dr. Carmen Jang MD Status: DEP AMB Study: Cerv Spine 2 or 3 Views Date of Exam: 08/16/24 Exam# [id number] Ordering Dr: Ely Salas PROCEDURE: CERV SPINE 2 OR 3 VIEWS 08/16/2024 REASON FOR EXAM: Postop follow-up TECHNIQUE: CERV SPINE 2 VIEWS COMPARISON: 08/01/2024 FINDINGS: Stable appearance of anterior cervical fusion between C6 and C7, with synthetic discs placed at C4-5 C5-6, and C6-7.. Hardware is intact and free of complication There is some straightening of the natural lordotic curvature of the C-spine which is likely positional or due to pain. No acute fracture or significant interval change since the previous study. Normal relationship between C7 and T1 Prevertebral soft tissues are unremarkable RAD/Cerv Spine 2 or 3 Views IMPRESSION: No acute findings, stable postsurgical changes in the mid and lower C-spine. No change since the previous study Reading Location: [id number] CC: RAJI Jung; Dr. Carmen Jang MD Pantry Attendant: Signed Normal [facility] Orthopedic Visit Reporton Orthopedic Visit Report [facility] [address] [place] [address] OFFICE VISIT Date of Service: 08/16/24 MR#: [id number] Acct: [id number] Name: YESENIA MARTIN Rep #: [id number] : 1980 Provider: Dr. Dg Díaz MD Age/Sex: 43/F Location: [facility] Status: Signed Intake Vital Signs 06/22/24 09:28 07/31/24 17:28 Height 5 ft 2.5 in 5 ft 2 in Intake Visit Reasons: cervical spine Chief Complaint: 2 week post-op Accompanied by: Is patient in pain?: Yes Allergies cortisone Allergy (Intermediate, Verified 08/16/24 10:07) Rash Dressing: Non-Medicated (bandage) Allergy (Verified 08/16/24 10:08) Rash Medications ???Medication ???Instructions ???Recorded ???Confirmed ???Type meloxicam 15 mg tablet 15 mg PO DAILY #30 tabs 08/01/24 0 08/16/24 Rx acetaminophen 325 mg tablet 325 mg PO ONCE PRN 08/16/24 History (Tylenol) PFSH Medical History Wears glasses [...] made by me, Dr. Dg Díaz MD 08/16/24 1002. Part of today???s visit was documented by Shreya Salinas ATC and Valentine Harrington RN, acting as scribe. YESENIA MARTIN is a 43 year old F here today for s/p C4-5 cervical disc replacement, revision anterior approach DOS 07/31/2024. Patient states she still has some pain in the neck and describes it as tender. The incision looks good and she denies any redness, drainage or concerns. She states she is still experiencing most of her symptoms. She states the pain in the right elbow is still pretty significant. The pain worsens when she bends her arm or picks up items. Patient states she is taking Tylenol for the pain but she is trying to get off of it and she is still finishing the meloxicam. She states she wore the cervical collar for the first couple of days but stopped wearing it early on. She states she has been trying to move her shoulders, work on neck range of motion and has been getting in the pool and trying to get some exercise that way. She states she had a reaction from the latex bandage after surgery. She states when swallowing it feels a little tight like she has mild swelling in the throat. She states the first couple of days was worse but has gotten better. The patient is a 43-year-old female presenting with post-operative follow-up for a herniated disc and ongoing issues with tennis elbow. The herniated disc was surgically addressed, and the patient reports that the pressure on the nerves has been relieved. However, she continues to experience numbness and tenderness in the shoulder and elbow regions, which she attributes to muscular healing. The patient has been advised that nerve recovery may take time, and she is scheduled to begin outpatient physical therapy to improve range of motion and strength. The patient also reports a history of tennis elbow, which predates her surgery. She experiences significant pain when lifting objects, even as light as a phone, and has been advised to undergo physical therapy to address this issue. The therapy will include stretches and possibly electrical or ultrasonic treatments to alleviate inflammation. Post-surgery, the patient experienced influenza, characterized by fever and cough, which resolved with symptomatic treatment using Tylenol over three days. She did not seek antiviral treatment and managed the symptoms at home. (more content not included)... Normal [facility] Anion gap in Serum or Plasma Ordered By: Ely Salas on 08-01-2024 Anion gap [Moles/Vol] 11 mmol/L - [facility] BUN/creatinine ratioOrdered By: Ely Salas on 08-01-2024 Urea nitrogen/Creatinine [Mass ratio] 12.4 mg/mg 12-03 [facility] Basic Metabolic Profile (BMP )on 08-01-2024 BUN/CRE 12.4 RATIO Normal - [facility] Comment on above: Performed By: #### L 100.0500, L500.2500 ####[facility] [address] [place], [address] Calcium [Mass/Vol] 8.4 mg/dL Normal 7.6-11.0 [facility] Comment on above: Performed By: #### L 100.0500, L500.2500 ####[facility] [address] [place], [address] Chloride [Moles/Vol] 105 mmol/L Normal 98-108 [facility] Comment on above: Performed By: #### L 100.0500, L500.2500 ####[facility] [address] [place], [address] CO2 [Moles/Vol] 20.4 mmol/L Low 21.0-32.0 [facility] Comment on above: Performed By: #### L 100.0500, L500.2500 ####[facility] [address] [place], [address] Creatinine [Mass/Vol] 0.59 mg/dL Low 0.70-1.20 [facility] Comment on above: Performed By: #### L 100.0500, L500.2500 ####[facility] [address] [place], [address] ECRCL 97.24 ml/min Normal 50-250 [facility] Comment on above: Performed By: #### L 100.0500, L500.2500 ####[facility] [address] [place], [address] GAP 11 Normal 5-15 [facility] Comment on above: Performed By: #### L 100.0500, L500.2500 ####[facility] [address] [place], [address] GFR/1.73 sq M.predicted among non-blacks MDRD (S/P/Bld) [Vol rate/Area] 115 mL/min/{1.73_m2} Normal >60 [facility] Comment on above: Result Comment: mL/m in/1.73m2 CKD-EPI Creatinine Equation (2020) Performed By: #### L 100.0500, L500.2500 ####[facility] [address] [place], [address] Glucose [Mass/Vol] 121 mg/dL High 70-99 [facility] Comment on above: Performed By: #### L 100.0500, L500.2500 ####[facility] [address] [place], [address] Potassium [Moles/Vol] 4.2 mmol/L Normal 3.3-5.1 [facility] Comment on above: Performed By: #### L 100.0500, L500.2500 ####[facility] [address] [place], [address] Sodium [Moles/Vol] 137 mmol/L Normal 133-145 [facility] Comment on above: Performed By: #### L 100.0500, L500.2500 ####[facility] [address] [place], [address] Urea nitrogen [Mass/Vol] 7 mg/dL Normal 4-19 [facility] Comment on above: Performed By: #### L 100.0500, L500.2500 ####[facility] [address] [place], [address] CBC-Complete Blood Cnt No Di ffon 08-01-2024 Erythrocyte distribution width (RBC) [Ratio] 12.5 % Normal 11.6-14.6 [facility] Comment on above: Performed By: #### L 100.0500, L500.2500 ####[facility] [address] [place], [address] Hematocrit (Bld) [Volume fraction] 35.5 % Low 37-47 [facility] Comment on above: Performed By: #### L 100.0500, L500.2500 ####[facility] [address] [place], [address] Hemoglobin (Bld) [Mass/Vol] 11.9 g/dL Low 12.0-15.0 [facility] Comment on above: Performed By: #### L 100.0500, L500.2500 ####[facility] [address] [place], [address] MCH (RBC) [Entitic mass] 28.8 pg Normal 27.0-32.0 [facility] Comment on above: Performed By: #### L 100.0500, L500.2500 ####[facility] [address] [place], [address] MCHC (RBC) [Mass/Vol] 33.5 g/dL Normal 32-36 [facility] Comment on above: Performed By: #### L 100.0500, L500.2500 ####[facility] [address] [place], [address] MCV (RBC) [Entitic vol] 86.0 fL Normal 81-99 [facility] Comment on above: Performed By: #### L 100.0500, L500.2500 ####[facility] [address] [place], [address] Platelet mean volume (Bld) [Entitic vol] 10.2 fL Normal 6.2-12.0 [facility] Comment on above: Performed By: #### L 100.0500, L500.2500 ####[facility] [address] [place], [address] Platelets (Bld) [#/Vol] 241 10*3/uL Normal 150-450 [facility] Comment on above: Performed By: #### L 100.0500, L500.2500 ####[facility] [address] [place], [address] RBC (Bld) [#/Vol] 4.13 10*6/uL Low 4.2-5.4 [facility] Comment on above: Performed By: #### L 100.0500, L500.2500 ####[facility] [address] [place], [address] RDW SD 38.8 fl Normal 35.1-43.9 [facility] Comment on above: Performed By: #### L 100.0500, L500.2500 ####[facility] [address] [place], [address] WBC (Bld) [#/Vol] 10.6 10*3/uL Normal 4.4-11.0 [facility] Comment on above: Performed By: #### L 100.0500, L500.2500 ####[facility] [address] [place], [address] Carbon dioxide, total [Moles /volume] in Central venous bloodOrdered By: Ely Salas on 08-01-2024 CO2 [Moles/Vol] 20.4 mmol/L Low 21.0-32.0 [facility] Cerv Spine 2 or 3 Viewson Cerv Spine 2 or 3 Views [facility] [address] [place] [address] Cerv Spine 2 or 3 Views MR#: [id number] Acct: [id number] Name: YESENIA MARTIN Rep #: [id number] : 1980 F 43 From: Codie birmingham MD PCP: Dr. Carmen Jang MD Status: ADM ROSITA Study: Cerv Spine 2 or 3 Views Date of Exam: 08/01/24 Exam# [id number] Ordering Dr: Ely Salas PROCEDURE: CERV SPINE 2 OR 3 VIEWS 08/01/2024 REASON FOR EXAM: S/P CERVICAL DISC REPLACEMENT TECHNIQUE: CERV SPINE 2 OR 3 VIEWS COMPARISON: 06/22/2024. FINDINGS: Unremarkable cervical fusion metallic hardware at C5-C6 and C6-C7 levels. Grade 1 anterolisthesis of C3 on C4. Grade 1 anterolisthesis of C4 on C5. Disc spacer is noted in the interim at C4-C5 in the interim. There are mild diffuse spondylotic changes. Findings are demonstrated to by diffuse disc space narrowing, osteophyte formation and degenerative endplate sclerosis. There is diffuse facet joint arthropathy with secondary bilateral neural foramina narrowing. No fracture or dislocation is seen. No aggressive lytic or blastic bony lesion is noted. RAD/Cerv Spine 2 or 3 Views IMPRESSION: Unremarkable cervical fusion metallic hardware at C5-C6 and C6-C7 levels. Grade 1 anterolisthesis of C3 on C4. Grade 1 anterolisthesis of C4 on C5. Disc spacer is noted in the interim at C4-C5 in the interim. Disclaimer: Reading Location: [place] [address] CC: RAJI Jung; Dr. Carmen Jang MD Pantry Attendant: Signed Normal [facility] Chloride assayOrdered By: Shima Salas on 08-01-2024 Chloride [Moles/Vol] 105 mmol/L 98-108 [facility] Erythrocyte distribution wid th ratioOrdered By: Ely Salas on 08-01-2024 Erythrocyte distribution width (RBC) [Ratio] 12.5 % 11.6-14.6 [facility] Erythrocyte distribution wid th standard deviationOrdered By: Ely Salas on 08-01-2024 Erythrocyte distribution width (RBC) [Ratio] 38.8 fl 35.1-43.9 [facility] Glomerular filtration rate ( GFR) estimation/1.73 sq m using serum, plasma, or whole bOrdered By: Ely Salas on 08-01-2024 GFR/1.73 sq M.predicted among non-blacks MDRD (S/P/Bld) [Vol rate/Area] 115 mL/min/{1.73_m2} >60 [facility] Comment on above: mL/min/1.73m2 CKD-EP I Creatinine Equation (2020) Hematocrit Auto (Bld) [Volum e fraction]Ordered By: Ely Salas on 08-01-2024 Hematocrit (Bld) [Volume fraction] 35.5 % Low 37-47 [facility] Hemoglobin measurementOrdere d By: Ely Salas on 08-01-2024 Hemoglobin (Bld) [Mass/Vol] 11.9 g/dL Low 12.0-15.0 [facility] MCV (mean corpuscular volume ) determinationOrdered By: Ely Salas 08-01-2024 MCV (RBC) [Entitic vol] 86.0 fL 81-99 [facility] Mean corpuscular hemoglobin (MCH) determinationOrdered By: Ely Salas on 08-01-2024 MCH (RBC) [Entitic mass] 28.8 pg 27.0-32.0 [facility] Mean corpuscular hemoglobin concentration (MCHC) determinationOrdered By: Ely Salas on 08-01-2024 MCHC (RBC) [Mass/Vol] 33.5 g/dL 32-36 [facility] Mean platelet volume determi nationOrdered By: Ely Salas on 08-01-2024 Platelet mean volume (Bld) [Entitic vol] 10.2 fL 6.2-12.0 [facility] Platelet countOrdered By: Shima Salas on 08-01-2024 Platelets (Bld) [#/Vol] 241 10*3/uL 150-450 [facility] Potassium measurement (mass/ volume)Ordered By: Ely Salas on 08-01-2024 Potassium (Unsp spec) [Mass/Vol] 4.2 mmol/L 3.3-5.1 [facility] RBC Auto (Bld) [#/Vol]Ordere d By: Ely Salas on 08-01-2024 RBC (Bld) [#/Vol] 4.13 10*6/uL Low 4.2-5.4 [facility] Serum creatinine measurement (mass/volume)Ordered By: Ely Salas on 08-01-2024 Creatinine [Mass/Vol] 0.59 mg/dL Low 0.70-1.20 [facility] Serum glucose measurement (m ass/volume)Ordered By: Ely Salas on 08-01-2024 Glucose [Mass/Vol] 121 mg/dL High 70-99 [facility] Serum or plasma calcium deng urement (mass/volume)Ordered By: Ely Salas on 08-01-2024 Calcium [Mass/Vol] 8.4 mg/dL 7.6-11.0 [facility] Serum or plasma urea nitroge n measurement (mass/volume)Ordered By: lEy Salas on 08-01-2024 Urea nitrogen [Mass/Vol] 7 mg/dL 4-19 [facility] Sodium levelOrdered By: Codie Salas on 08-01-2024 Sodium [Moles/Vol] 137 mmol/L 133-145 [facility] White blood cell (WBC) count Ordered By: Ely Salas on 08-01-2024 WBC (Bld) [#/Vol] 10.6 10*3/uL 4.4-11.0 [facility] Cerv Spine 2 or 3 Viewson Cerv Spine 2 or 3 Views [facility] Imaging Services [facility] [place] [address] Cerv Spine 2 or 3 Views MR#: [id number] Acct: [id number] Name: YESENIA MARTIN Rep #: [id number] : 1980 F 43 From: Codie birmingham MD PCP: Dr. Carmen Jang MD Status: ADM ROSITA Study: Cerv Spine 2 or 3 Views Date of Exam: 07/31/24 Exam# [id number] Ordering Dr: Dg Díaz MD PROCEDURE: CERV SPINE 2 OR 3 VIEWS 07/31/2024 REASON FOR EXAM: CERVICAL DISC REPLACEMENT C4-5 TECHNIQUE: CERV SPINE 2 OR 3 VIEWS Fluoroscopy time 15 seconds. Radiation dose 1.24 mGy. 5 spots. COMPARISON: 08/01/2024. FINDINGS: Intraoperative fluoroscopic images. Disc spacer has been inserted in the interim in good position at C4-C5 level. RAD/Cerv Spine 2 or 3 Views IMPRESSION: Intraoperative fluoroscopic images. Unremarkable disc spacer at C4-C5 level. Reading Location: [place] [address] CC: Dr. Dg Díaz MD; Dr. Carmen Jang MD Pantry Attendant: Signed Normal [facility] Consultation - [facility] 07-31-2024 Consultation - Hospitalist [facility] Medical Records Department [address] [place] [address] Consultation - Hospitalist 07/31/24 1737 MR#: [id number] Acct: [id number] Name: YESENIA MARTIN Rep #: [id number] : 1980 43 From: Oneil Moses DO PCP: Dr. Carmen Jang MD Status:ADM [facility] [place] [facility] [place] Assessment Plan Assessment/Plan (1) S/P cervical disc replacement: PLAN: Plan Patient is a 43-year-old female who presented to [facility] on 07/31/24 for planned cervical spine procedure. Medicine consulted postoperatively for medical management. 1. 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 Orthopedic surgery primary. S/p C4-[address] replacement [address] Dr[address] Díaz on 07/31. Tolerated procedure well, no intraoperative complications. Pain control, DVT prophylaxis and further management per orthopedics. PT/OT/case management consulted. Notably patient has no other medical issues and takes no home medications, so no other needs from a medicine standpoint at this time. DVT prophylaxis: Per orthopedics Total clinical time spent by myself addressing the patient's medical issues, reviewing all the data, and collaborating with patient's care team: 25 minutes. HPI Consult Data Date of Consult: 07/31/24 HPI Narrative Reason for Consultation: Postoperative medical management HPI Narrative: YESENIA MARTIN, is a 43 F who presented to [facility] on 07/31/2024 for planned cervical spine procedure. Medicine consulted postoperatively for medical management. Patient had C4-5 cervical disc replacement with revision procedure done with Dr. Díaz today. Tolerated procedure well, no intraoperative complications noted. I saw the patient at bedside later this afternoon, and daughter present. Patient was fatigued appearing and mildly uncomfortable appearing due to neck pain and reported nausea. She did have neck brace in place. Stated she had just been given IV medication for her nausea. Has not had any vomiting yet. Stated this was her third cervical spine procedure and she did not have significant postoperative nausea after the first 2 so this is surprising to her. She was given a scopolamine patch for the nausea as well. She otherwise reports generalized neck discomfort without sharp pain. Denies any radiculopathy. Feels fatigued but denies any other acute pain or discomfort. [facility] Medical History Wears glasses Alcohol use Restless legs Multiple sclerosis Former smoker History of pain when walking Encounter to establish care Preventative health care Neuropathy Lump of right breast Home Medications ???Medication ???Instructions ???Recorded ???Last Taken ???Type acetaminophen 325 mg tablet 325 mg PO ONCE PRN pain 05/18/24 0 07/29/24 History (Tylenol) Allergy/AdvReac Type Severity Reaction Status Date / Time cortisone Allergy Intermediate Rash Verified 07/31/24 08:46 Family History Father Diabetes Hypertension Brother Diabetes Aunt Breast cancer Mother Osteoarthritis Surgical History History of elbow surgery H/O neck surgery Hx of right breast biopsy Hx of dilation and curettage Hx of tonsillectomy Hx of eye surgery Hx of hysterectomy Hx of cholecystectomy Social History household members: spouse and children [...] do you feel safe at home: Yes ROS Constitutional Constitutional: Reports fatigue; Denies chills, fever(s) or weakness Eyes Eyes: Denies change in vision Cardiovascular Cardiovascular: Denies chest pain Respiratory/Chest Respiratory/Chest: Denies shortness of breath at rest Gastrointestinal Gastrointestinal: Reports nausea; Denies abdominal pain or vomiting Musculoskeletal Musculoskeletal: Denies arthralgias or myalgias Neurologic Neurologic: Denies focal weakness, headache(s), numbness, paresthesias or tingling Physical Exam Const alert, oriented x3, no apparent distress and average body habitus Constitutional Narrative: Younger middle-aged female, mildly fatigued appearing, mildly uncomfortable appearing due to nausea and neck pain, nec (more content not included)... Normal [facility] MR/POSTOP.ANEon 07-31-2024 MR/POSTOP.[facility] Medical Records Department [address] [place] [address] Anesthesia Postop Eval I 07/31/24 1428 MR#: [id number] Acct: [id number] Name: YESENIA MARTIN Rep #: [id number] : 1980 43 From: Karson Joel II, CRNA PCP: Dr. Carmen Jang MD Status:REG SDC Y Race: C Location: [place] [address] Anesthesia: Postop Eval I Current Vital Signs [...] Anesthesia document: Postop Eval 1 completed: Yes 07/31/24 1428 Date Karson Joel II WOOL SORTER Cosigner Signature: Date CC: Signed Normal [facility] MR/GSJITKUX2ah 07-31-2024 [facility] Medical Records Department [address] [place] [address] Anesthesia Postop Eval II 07/31/24 1549 MR#: [id number] Acct: [id number] Name: YESENIA MARTIN Rep #: [id number] : 1980 43 From: Damien Marroquin MD PCP: Dr. Carmen Jang MD Status:REG SDC Y Race: C Location: [place] [address] Anesthesia Postop Eval I Sum Postop Eval Completion status Anesthesia document: Postop Eval 1 completed: Yes Anesthesia Postop Eval I Summary Anesthesia Postop Eval I Summary: Anesthesia Postop Eval I: Assessment Summary Airway patent Yes 07/31/24 14:28 WOOL SORTER.DBAK Spontaneous unlabored Yes 07/31/24 14:28 WOOL SORTER.DBAK respirations Mental status Awake,Calm 07/31/24 14:28 WOOL SORTER.DBAK nausea No 07/31/24 14:28 WOOL SORTER.DBAK Vomiting No 07/31/24 14:28 WOOL SORTER.DBAK Anesthesia Postop Eval I: Fluid Summary Crystalloid volume administer 1,100 07/31/24 14:28 WOOL SORTER.DBAK (ml) Colloids volume administered ( ml) Blood Product volume administered (ml) Total IV fluid infused 1,100 07/31/24 14:28 WOOL SORTER.DBAK Anesthesia Postop Eval I: Summary Notes Anesthesia Complication No 07/31/24 14:28 WOOL SORTER.DBAK Anesthesia Complication Comment: Post-operative progress note VSS see PACU notes 07/31/24 14:28 WOOL SORTER.PATRICK for details Anesthesia: Postop Eval II Evaluation Mental status: Awake Pain Level: 0 nausea: No Vomiting: No Complications Anesthesia Complication: No 07/31/24 1549 Date Damien Marroquin MD Cosigner Signature: Date CC: Signed Normal [facility] Operative Reporton 5 Operative Report [facility] Medical Records Department [address] [place] [address] Operative Report 07/31/24 1408 MR#: [id number] Acct: [id number] Name: YESENIA MARTIN Rep #: [id number] : 1980 43 From: Dg Díaz MD PCP: Dr. 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, myeloradiculopathy, prior C5-6 disc replacement, prior C6-7 ACDF Post-Operative Diagnosis: Same Surgery/Procedure Performed: C4-5 cervical disc replacement, revision anterior approach day camp unit leader: Yes Credit Review Manager: Ely Salas Tasks completed by assistant professor of mathematics: Closing, Removing tissue, Hemostasis: Electrocautery and Retracting Type of Anesthesia: General RN Documented Start/Stop Times: Operation Date: 07/31/24 10:20 Case Time Into Pre-Op 07/31/24 08:19 Out of Pre-Op 07/31/24 11:56 Anesthesia Start 07/31/24 11:59 Into Room 07/31/24 11:59 Procedure Start 07/31/24 12:30 Procedure Start Time: 12:30 Procedure Stop Time: 14:12 Select all DRAINS/GRAFTS/IMPLANT S that apply: Drains Drain details: Imtiaz and Prosthetic device Prosthetic device details: ZimVie Mobi-C cervical disc replacement prosthesis Estimated Blood Loss: 20 cc Specimen collected: No Description of surgery: Preoperative diagnosis: 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 Anesthesia: Gen. [...] to some extent sharply dissected and a Perry pin was placed into the presumed C5 [...] Disc fragments were removed with the pituitary. Perry pins were placed in C4 and C5 for disc distraction. AP view confirmed midline placement of Perry pins. Curettes were utilized to remove cartilage from the endplates. Discectomy was performed (more content not included)... Normal [facility] Orthopedic Visit Reporton Orthopedic Visit Report [facility] [address] [place] [address] OFFICE VISIT Date of Service: 07/27/24 MR#: [id number] Acct: [id number] Name: YESENIA MARTIN Rep #: [id number] : 1980 Provider: Dr. Dg Díaz MD Age/Sex: 43/F Location[place] [facility] Status: Signed Intake Vital Signs 06/22/24 09:28 [...] PRN pain 05/18/24 0 07/27/24 History (Tylenol) PFSH Medical History Wears [...] by me, Dr. Dg Díaz MD 07/27/24 1447. Part of today???s visit was documented by Shreya Salinas ATC, acting as scribe. YESENIA MARTIN is a 43 year old F here today for pre-op cervical disc replacement C4-5, possible removal of hardware DOS 07/31/2024. Patient rates her pain a 4/10 today. She states she has stopped taking Advil but continues to take the Tylenol. 06/22/24: YESENIA MARTIN is a 43 year old F [...] She has an appointment in July at [facility] with a neurologist for further evaluation. [...] lower extremities. (more content not included)... Normal [facility] Electrocardiogram reportOrde red By: Mini Dailey on 07-23-2024 EKG study [facility] [address] [place] [address] 12 Lead EKG 07/19/24 1408 MR#: [id number] Acct: [id number] Name: YESENIA MARTIN Rep #:[id number] : 1980 43 From: Mini garcía MD Attending Dr: Dr. Dg Díaz MD Status: PRE [facility] [place]: Dg Díaz MD Date: [place] [facility] Sex: F C Admitted: Test Reason : [...] ECG Confirmed by ASHLIE ROQUE, LUPE ([id number]), editor continuity and script YESENIA GUZMAN ([id number]) on07/23/2024 6:25:36 AM Referred By: Dg Díaz Confirmed By: LUPE DAILEY MD 07/23/24624 Date _ Mini Dailey MD CC: Dr. Dg Díaz MD; Dr. Carmen Jang MD ~ Signed [facility] Work Phone: Hepatitis A AB, Totalon HEPATITIS A,TOT Negative Normal Negative [facility] Comment on above: Result Comment: Comm ent: The HAV total antibody assay detects both IgG and IgM but does not differentiate between them. A negative result suggests susceptibility to infection. A positive result could be due to vaccination, previously resolved infection or active infection. Testing for HAV IgM should be performed if active HAV infection is suspected. [facility] offers profiles that will automatically reflex positive HAV total antibody results to IgM (e.g., panel #[id number] HAV Antibody w/ Rfx). Performed at: [address] [id number] Warehouse Guard: Keon Oakley PhD, Phone: [phone] Performed By: #### L 500.2500, L100.0100, M100.651, L3890.6006, L3890.6202, BTSPAT, L3100.0300, L3890.6301, L501.9985 ####[facility] [address] [facility] [place], [address] MRSA/SAID NASAL SCREENon MRSA+SAID SCRN Reason for Exam: Surgery MRSA MRSA Negative S. AUREUS S. aureus Negative Normal [facility] Comment on above: Performed By: #### L 500.2500, L100.0100, M100.651, L3890.6006, L3890.6202, BTSPAT, L3100.0300, L3890.6301, L501.9985 ####[facility] [address] [facility] [place], [address] 12 Lead EKGon 07-19-2024 12 Lead EKG [facility] [address] [place] [address] 12 Lead EKG 07/19/24 1408 MR#: [id number] Acct: [id number] Name: YESENIA MARTIN Rep #: [id number] : 1980 43 From: Mini Dailey MD Attending Dr: Dr. Dg Díaz MD Status: PRE [facility] [place]: Dg Díaz MD Date: 07/19/24 [place] [facility] Sex: F C Admitted: Test Reason : [...] ECG Confirmed by ASHLIE ROQUE, LUPE ([id number]), editor continuity and script YESENIA GUZMAN ([id number]) on 07/23/2024 6:25:36 AM Referred By: Dg Díaz Confirmed By: LUPE DAILEY MD 07/23/24624 Date Mini Dailey MD CC: Dr. Dg Díaz MD; Dr. Carmen Jang MD Signed Normal [facility] Absolute lymphocyte countOrd ered By: Dg Díaz on 07-19-2024 Lymphocytes Auto (Unsp spec) [#/Vol] 1.48 10*3/uL 0.83-4.51 [facility] Absolute neutrophil countOrd ered By: Dgaimee Díaz on 07-19-2024 Neutrophils (Bld) [#/Vol] 4.8 10*3/uL 2.0-7.7 [facility] Automated lymphocyte count a s percentage of total leukocytesOrdered By: Dg Díaz on 07-19-2024 Lymphocytes/100 WBC Auto (Unsp spec) 21.3 % 19-41 [facility] Basic Metabolic Profile (BMP )on 07-19-2024 BUN/CRE 18.6 RATIO Normal 10-20 [facility] Comment on above: Performed By: #### L 500.2500, L100.0100, M100.651, L3890.6006, L3890.6202, BTSPAT, L3100.0300, L3890.6301, L501.9985 ####[facility] [address] [place], [address] Calcium [Mass/Vol] 9.1 mg/dL Normal 7.6-11.0 [facility] Comment on above: Performed By: #### L 500.2500, L100.0100, M100.651, L3890.6006, L3890.6202, BTSPAT, L3100.0300, L3890.6301, L501.9985 ####[facility] [address] [place], [address] Chloride [Moles/Vol] 103 mmol/L Normal 98-108 [facility] Comment on above: Performed By: #### L 500.2500, L100.0100, M100.651, L3890.6006, L3890.6202, BTSPAT, L3100.0300, L3890.6301, L501.9985 ####[facility] [address] [place], [place], [id number] CO2 [Moles/Vol] 19.5 mmol/L Low 21.0-32.0 [facility] Comment on above: Performed By: #### L 500.2500, L100.0100, M100.651, L3890.6006, L3890.6202, BTSPAT, L3100.0300, L3890.6301, L501.9985 ####[facility] [address] [place], [address] Creatinine [Mass/Vol] 0.66 mg/dL Low 0.70-1.20 [facility] Comment on above: Performed By: #### L 500.2500, L100.0100, M100.651, L3890.6006, L3890.6202, BTSPAT, L3100.0300, L3890.6301, L501.9985 ####[facility] [address] [place], [place], [id number] GAP 15 Normal 5-15 [facility] Comment on above: Performed By: #### L 500.2500, L100.0100, M100.651, L3890.6006, L3890.6202, BTSPAT, L3100.0300, L3890.6301, L501.9985 ####[facility] [address] [place], [place], [id number] GFR/1.73 sq M.predicted among non-blacks MDRD (S/P/Bld) [Vol rate/Area] 111 mL/min/{1.73_m2} Normal >60 [facility] Comment on above: Result Comment: mL/m in/1.73m2 CKD-EPI Creatinine Equation (2020) Performed By: #### L 500.2500, L100.0100, M100.651, L3890.6006, L3890.6202, BTSPAT, L3100.0300, L3890.6301, L501.9985 ####[facility] [address] [place], [address] Glucose [Mass/Vol] 95 mg/dL Normal 70-99 [facility] Comment on above: Performed By: #### L 500.2500, L100.0100, M100.651, L3890.6006, L3890.6202, BTSPAT, L3100.0300, L3890.6301, L501.9985 ####[facility] [address] [place], [address] Potassium [Moles/Vol] 4.0 mmol/L Normal 3.3-5.1 [facility] Comment on above: Performed By: #### L 500.2500, L100.0100, M100.651, L3890.6006, L3890.6202, BTSPAT, L3100.0300, L3890.6301, L501.9985 ####[facility] [address] [place], [address] Sodium [Moles/Vol] 137 mmol/L Normal 133-145 [facility] Comment on above: Performed By: #### L 500.2500, L100.0100, M100.651, L3890.6006, L3890.6202, BTSPAT, L3100.0300, L3890.6301, L501.9985 ####[facility] [address] [place], [address] Urea nitrogen [Mass/Vol] 12 mg/dL Normal 4-19 [facility] Comment on above: Performed By: #### L 500.2500, L100.0100, M100.651, L3890.6006, L3890.6202, BTSPAT, L3100.0300, L3890.6301, L501.9985 ####[facility] [address] [place], [address] Basophil percentageOrdered B y: Dg Díaz on 07-19-2024 Basophils/100 WBC (Bld) 0.6 % 0-1 [facility] CBC W/Diff, Automatedon Absolute Lymph 1.48 X10 3/uL Normal 0.83-4.51 [facility] Comment on above: Performed By: #### L 500.2500, L100.0100, M100.651, L3890.6006, L3890.6202, BTSPAT, L3100.0300, L3890.6301, L501.9985 #### [facility] [address] [place], [address] Absolute Neut 4.8 X10 3/uL Normal 2.0-7.7 [facility] Comment on above: Performed By: #### L 500.2500, L100.0100, M100.651, L3890.6006, L3890.6202, BTSPAT, L3100.0300, L3890.6301, L501.9985 #### [facility] [address] [place], [address] Basophils/100 WBC (Bld) 0.6 % Normal 0-1 [facility] Comment on above: Performed By: #### L 500.2500, L100.0100, M100.651, L3890.6006, L3890.6202, BTSPAT, L3100.0300, L3890.6301, L501.9985 #### [facility] [address] [place], [address] Eosinophils/100 WBC (Bld) 1.6 % Normal 0-5 [facility] Comment on above: Performed By: #### L 500.2500, L100.0100, M100.651, L3890.6006, L3890.6202, BTSPAT, L3100.0300, L3890.6301, L501.9985 #### [facility] [address] [place], [address] Erythrocyte distribution width (RBC) [Ratio] 12.2 % Normal 11.6-14.6 [facility] Comment on above: Performed By: #### L 500.2500, L100.0100, M100.651, L3890.6006, L3890.6202, BTSPAT, L3100.0300, L3890.6301, L501.9985 #### [facility] [address] [place], [address] (554) Hematocrit (Bld) [Volume fraction] 39.0 % Normal 37-47 [facility] Comment on above: Performed By: #### L 500.2500, L100.0100, M100.651, L3890.6006, L3890.6202, BTSPAT, L3100.0300, L3890.6301, L501.9985 #### [facility] [address] [place], [address] Hemoglobin (Bld) [Mass/Vol] 12.9 g/dL Normal 12.0-15.0 [facility] Comment on above: Performed By: #### L 500.2500, L100.0100, M100.651, L3890.6006, L3890.6202, BTSPAT, L3100.0300, L3890.6301, L501.9985 #### [facility] [address] [place], [address] IG% 0.400 Normal 0.0-0.9 [facility] Comment on above: Result Comment: IG% - Immature Granulocytes (promyelocytes, myelocytes and metamyelocytes) > 1% indicates that a LEFT SHIFT is Present. Performed By: #### L 500.2500, L100.0100, M100.651, L3890.6006, L3890.6202, BTSPAT, L3100.0300, L3890.6301, L501.9985 #### [facility] [address] [place], [address] Lymphocytes/100 WBC (Bld) 21.3 % Normal 19-41 [facility] Comment on above: Performed By: #### L 500.2500, L100.0100, M100.651, L3890.6006, L3890.6202, BTSPAT, L3100.0300, L3890.6301, L501.9985 #### [facility] [address] [place], [address] MCH (RBC) [Entitic mass] 28.4 pg Normal 27.0-32.0 [facility] Comment on above: Performed By: #### L 500.2500, L100.0100, M100.651, L3890.6006, L3890.6202, BTSPAT, L3100.0300, L3890.6301, L501.9985 #### [facility] [address] [place], [address] MCHC (RBC) [Mass/Vol] 33.1 g/dL Normal 32-36 [facility] Comment on above: Performed By: #### L 500.2500, L100.0100, M100.651, L3890.6006, L3890.6202, BTSPAT, L3100.0300, L3890.6301, L501.9985 #### [facility] [address] [place], [address] MCV (RBC) [Entitic vol] 85.9 fL Normal 81-99 [facility] Comment on above: Performed By: #### L 500.2500, L100.0100, M100.651, L3890.6006, L3890.6202, BTSPAT, L3100.0300, L3890.6301, L501.9985 #### [facility] [address] [place], [address] Monocytes/100 WBC (Bld) 6.9 % Normal 0-10 [facility] Comment on above: Performed By: #### L 500.2500, L100.0100, M100.651, L3890.6006, L3890.6202, BTSPAT, L3100.0300, L3890.6301, L501.9985 #### [facility] [address] [place], [address] Neutrophils/100 WBC (Bld) 69.2 % Normal 47-70 [facility] Comment on above: Performed By: #### L 500.2500, L100.0100, M100.651, L3890.6006, L3890.6202, BTSPAT, L3100.0300, L3890.6301, L501.9985 #### [facility] [address] [place], [address] Nucleated RBC (Bld) [#/Vol] 0 10*3/uL Normal 0-5 [facility] Comment on above: Performed By: #### L 500.2500, L100.0100, M100.651, L3890.6006, L3890.6202, BTSPAT, L3100.0300, L3890.6301, L501.9985 #### [facility] [address] [place], [address] Platelet mean volume (Bld) [Entitic vol] 10.4 fL Normal 6.2-12.0 [facility] Comment on above: Performed By: #### L 500.2500, L100.0100, M100.651, L3890.6006, L3890.6202, BTSPAT, L3100.0300, L3890.6301, L501.9985 #### [facility] [address] [place], [address] Platelets (Bld) [#/Vol] 264 10*3/uL Normal 150-450 [facility] Comment on above: Performed By: #### L 500.2500, L100.0100, M100.651, L3890.6006, L3890.6202, BTSPAT, L3100.0300, L3890.6301, L501.9985 #### [facility] [address] [place], [address] RBC (Bld) [#/Vol] 4.54 10*6/uL Normal 4.2-5.4 [facility] Comment on above: Performed By: #### L 500.2500, L100.0100, M100.651, L3890.6006, L3890.6202, BTSPAT, L3100.0300, L3890.6301, L501.9985 #### [facility] [address] [facility] [place], [address] (057 RDW SD 38.2 fl Normal 35.1-43.9 [facility] Comment on above: Performed By: #### L 500.2500, L100.0100, M100.651, L3890.6006, L3890.6202, BTSPAT, L3100.0300, L3890.6301, L501.9985 #### [facility] [address] [facility] [place], [address] WBC (Bld) [#/Vol] 7.0 10*3/uL Normal 4.4-11.0 [facility] Comment on above: Performed By: #### L 500.2500, L100.0100, M100.651, L3890.6006, L3890.6202, BTSPAT, L3100.0300, L3890.6301, L501.9985 #### [facility] [address] [facility] [place], [address] Eosinophil percentageOrdered By: Dg Díaz on 07-19-2024 Eosinophils/100 WBC (Bld) 1.6 % 0-5 [facility] HIVon 07-19-2024 HIV Non-Reactive Normal Nonreactive [facility] Comment on above: Result Comment: Non- Reactive Reactive Repeatedly reactive samples must be confirmed according to CDC recommended confirmatory algorithms. The subresults for either HIVAG or AHIV can be used as an aid in the selection of the confirmation algorithm for reactive samples. Send out specimens with Reactive results to [facility] for confirmation. Order the HIV antibody detection and differentiation: lc#[id number] Performed By: #### L 500.2500, L100.0100, M100.651, L3890.6006, L3890.6202, BTSPAT, L3100.0300, L3890.6301, L501.9985 ####[facility] [address] [facility] [place], [place], [address](438) Hemoglobin A1con 07-19-2024 HbA1c (Bld) [Mass fraction] 5.5 % Normal <=5.6 [facility] Comment on above: Result Comment: Norm al < 5.7 % Prediabetic 5.7 - 6.4 % Diabetic >or= 6.5 % Please note range changes. Performed By: #### L 500.2500, L100.0100, M100.651, L3890.6006, L3890.6202, BTSPAT, L3100.0300, L3890.6301, L501.9985 #### [facility] [address] [facility] [place], [place], [id number] Hemoglobin A1c percentageOrd ered By: Dg Díaz on 07-19-2024 HbA1c (Bld) [Mass fraction] 5.5 % <5.7 [facility] Comment on above: Normal < 5.7 % Predi abetic 5.7 - 6.4 % Diabetic >or= 6.5 % Please note range changes. Hepatitis B Surface Antibody on 07-19-2024 HEP B Surf Ab Non-Reactive Normal [facility] Comment on above: Result Comment: <8.5 mIU/mL: Non-Reactive 8.5<= x <11.5 mIU/mL: Indeterminate >=11.5 mIU/mL: Reactive Non Reactive: Inconsistent with immunity less than <10 mIU/mL Reactive: Consistent with immunity greater than or equal to 10 mIU/mL Performed By: #### L 500.2500, L100.0100, M100.651, L3890.6006, L3890.6202, BTSPAT, L3100.0300, L3890.6301, L501.9985 ####[facility] [address] [place], [address] Hepatitis C Antibodyon 07-19 Hepatitis C Ab Non-Reactive Normal Nonreactive [facility] Comment on above: Result Comment: Reac tive: Presumptive evidence of antibodies to HCV. Follow CDC recommendations for supplemental testing. Non-Reactive: Antibodies to HCV were not detected; does not exclude the possibility of exposure to HCV Reactive Results are presumptive evidence of antibodies to HCV. Follow CDC recommendations for supplemental testing. Order confirmation testing: HCV Quant by PCR testing - HCVPCR #[id number] Non Reactive: < 0.8 Equivocal: >/= 0.8 to < 1.0 Reactive: >/= 1.0 The [facility] requires that a reactive/equivocal HCV antibody result be sent out for confirmation. HCV Quant by PCR testing. Performed By: #### L 500.2500, L100.0100, M100.651, L3890.6006, L3890.6202, BTSPAT, L3100.0300, L3890.6301, L501.9985 ####[facility] [address] [place], [place], [phone] Immature granulocytes/100 WB C Auto (Bld)Ordered By: Dg Díaz on 07-19-2024 Immature granulocytes/100 WBC (Bld) 0.400 % 0.0-0.9 [facility] Comment on above: IG% - Immature Granu locytes (promyelocytes, myelocytes and metamyelocytes) > 1% indicates that a LEFT SHIFT is Present. MRSA screenOrdered By: Cyrus Díaz on 07-19-2024 MRSA DNA RETA+probe Ql (Unsp spec) [facility] Magnesiumon 07-19-2024 Magnesium [Mass/Vol] 2.3 mg/dL High 1.5-2.2 [facility] Comment on above: Performed By: #### L 501.5200 ####[facility] [address] [place], [address] Magnesium measurement (mass/ volume)Ordered By: Mg De Leon on 07-19-2024 Magnesium (Unsp spec) [Mass/Vol] 2.3 mg/dL High 1.5-2.2 [facility] Monocyte percentageOrdered B y: Dg Díaz on 07-19-2024 Monocytes/100 WBC (Bld) 6.9 % 0-10 [facility] Neutrophil percentageOrdered By: Dg Díaz on 07-19-2024 Neutrophils/100 WBC (Bld) 69.2 % 47-70 [facility] No Panel InformationOrdered By: Dg Díaz on 07-19-2024 HIV (1&2) Antibody Non-Reactive Nonreactive [facility] [facility] Comment on above: Non-ReactiveReactive Repeatedly reactive samples must be confirmed according to CDC recommended confirmatory algorithms. The subresults for either HIVAG or AHIV can be used as an aid in the selection of the confirmation algorithm for reactive samples.Send out specimens with Reactive results to [facility] for confirmation.Order the HIV antibody detection and differentiation: #[id number] Nucleated red blood cell per centageOrdered By: Dg Díaz on 07-19-2024 Nucleated RBC/100 WBC (Bld) [Ratio] 0 % 0-5 [facility] Serum hepatitis B virus surf cj antibody detectionOrdered By: Dg Díaz on 07-19-2024 HBV surface Ab Ql (S) Non-Reactive [facility] Comment on above: <8.5 mIU/mL: Non-Sophia ctive8.5<= x <11.5 mIU/mL: Indeterminate>=11.5 mIU/mL: Reactive Non Reactive: Inconsistent with immunity less than <10 mIU/mL Reactive: Consistent with immunity greater than or equal to 10 mIU/mL Type AND Screen - PAT ONLYon 07-19-2024 Ab SCREEN GEL Negative Normal [facility] Comment on above: Order Comment: Surge ry Date: 07/31/24Reason for Laboratory Test [id number] disc replacement Performed By: #### L 500.2500, L100.0100, M100.651, L3890.6006, L3890.6202, BTSPAT, L3100.0300, L3890.6301, L501.9985 ####[facility] [address] [place], [address] Internal Medicine Office Vis iton 07-11-2024 Internal Medicine Office Visit [facility] [address] [place] [address] [place] [address] OFFICE VISIT Date of Service: 07/11/24 MR#: [id number] Acct: [id number] Name: YESENIA MARTIN Rep #: [id number] : 1980 Provider: RAJI Ho Age/Sex: 43/F Location[facility] Status: Signed Intake Vital Signs 06/22/24 09:28 [...] air Intake Visit Reasons: ACUTE SURG CLEARANCE Desk Clerks Supervisor Required: No Is patient in pain?: Yes [...] to stop nsaid use 2 weeks prior. [facility] Medical History Encounter to establish [...] safe at home: Yes HPI HPI Details: YESENIA MARTIN, is a 43 F who presents [...] dry ski (more content not included)... Normal [facility] Cerv Spine 4 or 5 Viewson Cerv Spine 4 or 5 Views [facility] Imaging Services [address] [place] [address]781 Cerv Spine 4 or 5 Views MR#: [id number] Acct: [id number] Name: YESENIA MARTIN Rep #: [id number] : 1980 F 43 From: Codie birmingham MD PCP: TONIA Landeros Status: DEP AMB Study: Cerv Spine 4 or 5 Views Date of Exam: 06/22/24 Exam# [id number] Ordering Dr: Ely Salas PROCEDURE: CERV SPINE [...] hardware. No evidence of instability. [facility] CC: TONIA Ang; RAJI Jung Pantry Attendant: Signed Normal [facility] Orthopedic Visit Reporton Orthopedic Visit Report [facility] [place] [address] OFFICE VISIT Date of Service: 06/22/24 MR#: [id number] Acct: [id number] Name: YESENIA MARTIN Rep #: [id number] : 1980 Provider: Dr. Dg Díaz MD Age/Sex: 43/F Location: [facility] Status: Signed Intake Vital Signs 06/01/24 09:29 [...] made by me, Dr. Dg Díaz MD 06/22/24927. Part of today???s visit was documented by Jocelyne Foster MA and Valentine Harrington RN, acting as scribe. YESENIA MARTIN is a 43 year old F [...] She has an appointment in July at [facility] with a neurologist for further evaluation. [...] positive. Tandem (more content not included)... Normal [facility] 06-04-2024 [facility] Telephone (MRI) YESENIA MARTIN ([id number]) 1980 F Date Time Provider Department 06/04/24 JOSE J BIRD MRI During your visit today, we recorded the following information about you: Guerline Morse 06/04/2024 12:10 PM Signed Patient called to request discs of 07/04/23 MRI Cervical Spine and 05/25/24 MRI Thoracic Spine. Please notify patient when items are available for rock picker ph. [phone]. Allergies As of Date: 06/04/2024 Noted Allergy Reaction CORTISONE 11/18/2021 4 - Hives Comments: Reaction to injection Date Reviewed: 08/04/2023 Reviewed by: Laney Stuart PA-C - Fully Assessed Reason for Visit: Release Of Medical Records [2017] Cmt: Imaging Prescriptions as of 09/06/2024 - acetaminophen (TYLENOL) 325 mg tablet 2 tablets by ORAL/FEEDING TUBE route every 6 hours as needed for pain. 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, [address] [place] [address] OFFICE VISIT Date of Service: 06/01/24 MR#: [id number] Acct: [id number] Name: YESENIA MARTIN Rep #: [id number] : 1980 Provider: Dr. Narayan hodge MD Age/Sex: 43/F Location: [facility] Status: Signed HPI [facility] Chief Complaint: Neurology follow up Details: The [...] history of cervical fusion with redo at [facility] in the past year. Patient continued to have paresthesias involving right cheek, arms legs and trunk. She also notes paresthesias in the sacral distribution. She has decreased ability to control urine. She lacks perception for maturation. I requested an MRI of the brain that was performed here in [place] on 05/07/2024. MRI of cervical spine was [...] reproduce Lhermit (more content not included)... Normal [facility] MR Thoracic spine WO and Leah melchor ontrast Triston 05-25-2024 IMPRESSION: Minimal degenerative spondylosis [...] and assume there are 5 lumbar-type vertebrae. Pantry Attendant: ALETA Transcribe Date/Time: May 25 2024 10:28A Dictated by : NYLA YATES MD This examination was interpreted and the report reviewed and electronically signed by: NYLA YATES MD on May 25 2024 10:36AM [facility] DIVISION OF RADIOLOGY * * *Final Report* * * DATE OF EXAM: May 25 2024 10:00AM [facility] 0326 - MRI THORACIC SPINE WO/W IVCON [...] neural foraminal narrowing. DIVISION OF RADIOLOGY [facility], [facility]/25/[facility]24 * * *Final Report* * [...] and assume there are 5 lumbar-type vertebrae. Pantry Attendant: ALETA Transcribe Date/Time: May 25 2024 10:28A Dictated by : NYLA YATES MD This examination was interpreted and the report reviewed and electronically signed by: NYLA YATES MD on May 25 2024 10:36AM EST [facility] Radiology Study observation (narrative) [facility] MR Thoracic spine WO and W c ontrast IVOrdered By: [facility] Provider on 05-25-2024 [facility] MRI THORACIC SPINE WO/W [...] and assume there are 5 lumbar-type vertebrae. Pantry Attendant: PSCB Transcribe Date/Time: May 25 2024 10:28A Dictated by : NYLA YATES MD This examination was interpreted and the report reviewed and electronically signed by: NYLA YATES MD on May 25 2024 10:36AM EST [id number] Normal [facility] Internal Medicine Office Vis iton 05-18-2024 Internal Medicine Office Visit [facility] [address] [place] [address] [place] [address] OFFICE VISIT Date of Service: 05/18/24 MR#: [id number] Acct: [id number] Name: YESENIA MARTIN Rep #: [id number] : 1980 Provider: Dr. 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 Carmen Jang MD) Encounter to establish care Preventative [...] HPI HPI Chief Complaint: Establish Care Details: YESENIA MARTIN, is a 43 F who presents [...] No d (more content not included)... Normal [facility] 05-10-2024 [facility] YES[facility] ([id number]) 1980 F Date Time Provider Department 05/10/24 RAMÓN ORELLANA During your visit today, we recorded the following information about you: Yanely Daniels LPN 05/10/2024 2:19 PM [facility] NEW PATIENT REFERRAL TRIAGE Referral source:self No referring provider defined for this encounter. Referral Reason: for a second opinion on neurological symptoms Care Everywhere Completed Connection: [x]Yes or []No MRI Imaging and reports (over the last 5-10 years most important) from [facility] Location(s) Previous MRI Imaging has been obtained: [facility] Radiology/Film Library contact: [phone] 04/2024 MRI Brain MRI Cervical Date Requested: 05/10/24 Method of Request: Called in Request [x] or Faxed Request [] MELY Land Jacqueline, LPN 05/10/2024 2:19 PM Signed Email [facility] film room to expedite MRI imaging process. MELY Land Jacqueline, LPN 05/10/2024 2:46 PM Signed MRI images have arrived and are viewable in Epic. Yanely Daniels LPN Allergies As of Date: 05/10/2024 Noted Allergy Reaction CORTISONE 11/18/2021 4 - Hives Comments: Reaction to injection Date Reviewed: 08/04/2023 Reviewed by: Laney Stuart PA-C - Fully Assessed Prescriptions as of [...] ASTHMA UNSPECIFIED [J45.909] MYALGIA AND MYOSITIS NOS [NQS3553] MIGRAINE NOS W/O MENTN INTRACTABLE [G43.909] ALLERGIC [...] Status:Closed by YANELY DANIELS on 05/11/24 Normal [facility] Brain without Contraston Brain without Contrast [facility] Imaging Services [address] [place], [place] [id number] Brain without Contrast MR#: [id number] Acct: [id number] Name: ROSALVA MARTINANDA QUYNH Rep #: [id number] : 1980 F 43 From: Mikaela Price nd, MD PCP: Giuseppe Ang, TONIA Status: REG CLI Study: Brain without Contrast Date of Exam: 05/07/24 Exam# [id number] Ordering Dr: Narayan Connelly MD EXAM: MRI [...] intracranial hemorrhage or mass effect. Reading Location: [facility] CC: 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-C Giuseppe Ang; Dr. Narayan Connelly MD Pantry Attendant: Signed Normal [facility] Magnetic resonance imaging r eportOrdered By: Mikaela Anthony on 05-07-2024 Study report [facility] Imaging Services [address] [place], [place] [address] Spine Cervical (Routine) MR#: [id number] Acct: [id number] Name: YESENIA MARTIN Rep #: [id number] : 1980 F 43 From: Milagros Anthony MD PCP: Giuseppe Ang NP-C Status: REG C Study:Spine Cervical (Routine) Date of Exam: 05/07/24 Exam# [id number] Ordering Dr: Narayan Connelly MD PROCEDURE: SPINE [...] central or neural foraminal stenosis. Reading Location: [facility] CC: 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-C Giuseppe Ang; Dr. Narayan Connelly MD ~ Pantry Attendant: Signed [facility] Study report [facility] Imaging Services [address] [place] [address] Brain without Contrast MR#: [id number] Acct: [id number] Name: YESENIA MARTIN Rep #: [id number] : 1980 F 43 From: Milagros Anthony MD PCP: Giuseppe Ang NP-Yajaira Status: REG C REMI Study:Brain without Contrast Date of Exam: 05/07/24 Exam# [id number] Ordering Dr: Narayan Connelly MD EXAM: MRI [...] intracranial hemorrhage or mass effect. Reading Location: [facility] CC: 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-C Giuseppe Ang; Dr. Narayan Connelly MD ~ Pantry Attendant: Signed [facility] Spine Cervical (Routine)on 0 05-07-2024 Spine Cervical (Routine) [facility] Imaging Services [address] [place] [address] Spine Cervical (Routine) MR#: [id number] Acct: [id number] Name: YESENIA MARTIN Rep #: [id number] : 1980 F 43 From: Mikaela Price nd, MD PCP: Giuseppe Ang NP-C Status: DEP CLI Study: Spine Cervical (Routine) Date of Exam: Exam# [id number] Ordering Dr: Narayan Connelly MD ADDENDUM by [...] also present at this level. Reading [facility] Date cc: 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-C Giuseppe Ang; Dr. Narayan Connelly MD * [...] central or neural foraminal stenosis. Reading Location: [facility] CC: 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-Yajaira Ang; Dr. Narayan Connelly MD Pantry Attendant: Signed Normal [facility] Neurology Visit Reporton Neurology Visit Report [facility] [address] [place] [address] OFFICE VISIT Date of Service: 04/05/24 MR#: [id number] Acct: [id number] Name: YESENIA MARTIN Rep #: [id number] : 1980 Provider: Dr. Narayan hodge MD Age/Sex: 43/F Location: [facility] Status: Signed HPI HPI Chief Complaint: Establish Care Details: The patient is a 43-year-old left handed female who presents to [facility]. She self-referred for full body [...] the surgery which was done at the [facility] was noted to have [...] Patient is afraid to go back to [facility] because she does not want another surgery. [...] 3. Memory is intact. Language shows normal nurse receptionist expression repetition. Insight and judgment is normal. [...] shows th (more content not included)... Normal [facility] XR Shoulder - left 3 Viewson 08-04-2023 IMPRESSION: No acute osseous abnormality Pantry Attendant: [facility] Transcribe Date/Time: Aug 04 2023 8:44A Dictated by : LIDIA DEJESUS MD This examination was interpreted and the report reviewed and electronically signed by: LIDIA DEJESUS MD on Aug 04 2023 8:45AM [facility] DIVISION OF RADIOLOGY * * *Final Report* [...] spaces are maintained. DIVISION OF RADIOLOGY Provider, Vivi Marcos [facility] - 08/04/2023 * * *Final Report* * [...] maintained. IMPRESSION IMPRESSION: No acute osseous abnormality Pantry Attendant: [facility] Transcribe Date/Time: Aug 04 2023 8:44A Dictated by : LIDIA DEJESUS MD This examination was interpreted and the report reviewed and electronically signed by: LIDIA DEJESUS MD on Aug 04 2023 8:45AM EST [facility] Radiology Study observation (narrative) [facility] XR Shoulder - left 3 ViewsOr dered By: [facility] Provider on 08-04-2023 [facility] MR Cervical spine WO [...] vertebrae with counting from the craniocervical junction. Pantry Attendant: [facility] Transcribe Date/Time: Jul 04 2023 10:13A Dictated by : MALINDA ETIENNE MD This examination was interpreted and the report reviewed and electronically signed by: MALINDA ETIENNE MD on Jul 04 2023 10:30AM [facility] DIVISION OF RADIOLOGY * * *Final Report* * * DATE OF EXAM: Jul 04 2023 8:30AM [facility] 0297 - MRI CERVICAL SPINE WO IVCON [...] Localizer images: Noncontributory DIVISION OF RADIOLOGY Provider, [facility] - 07/04/2023 * * *Final Report* * * DATE OF EXAM: Jul 04 2023 8:30AM [facility] 0297 - MRI CERVICAL SPINE WO IVCON [...] vertebrae with counting from the craniocervical junction. Pantry Attendant: ALETA Transcribe Date/Time: Jul 04 2023 10:13A Dictated by : MALINDA ETIENNE MD This examination was interpreted and the report reviewed and electronically signed by: MALINDA ETIENNE MD on Jul 04 2023 10:30AM EST [facility] Radiology Study observation (narrative) [facility] MR Cervical spine WO contras tOrdered By: [facility] Provider on 07-04-2023 [facility] Comprehensive metabolic 2000 panelon 03-11-2023 Albumin [Mass/Vol] 4.9 g/dL 3.9 - 4.9 g/dL [facility] ALP [Catalytic activity/Vol] 32 U/L Low 34 - 123 U/L [facility] ALT [Catalytic activity/Vol] 20 U/L 7 - 38 U/L [facility] Anion gap [Moles/Vol] 12 mmol/L 9 - 18 mmol/L [facility] AST [Catalytic activity/Vol] 19 U/L 13 - 35 U/L [facility] Bilirubin [Mass/Vol] 0.4 mg/dL 0.2 - 1 .3 mg/dL [facility] Calcium [Mass/Vol] 9.3 mg/dL 8.5 - 10. 2 mg/dL [facility] Chloride [Moles/Vol] 102 mmol/L 97 - 10 5 mmol/L [facility] CO2 [Moles/Vol] 24 mmol/L 22 - 30 mmol/L [facility] Creatinine [Mass/Vol] 0.69 mg/dL 0.58 - 0.96 mg/dL [facility] Estimated Glomerular Filtration Rate 111 mL/min/1.73m >=60 mL/min/1.73m [facility] Glucose [Mass/Vol] 99 mg/dL 74 - 99 mg/dL [facility] Potassium [Moles/Vol] 3.9 mmol/L 3.7 - 5.1 mmol/L [facility] Protein [Mass/Vol] 7.1 g/dL 6.3 - 8.0 g/dL [facility] Sodium [Moles/Vol] 138 mmol/L 136 - 144 mmol/L [facility] Urea nitrogen [Mass/Vol] 13 mg/dL 7 - 21 mg/dL [facility] TYPE AND SCREEN,30 DAYon ABO group Nom (Bld) A [facility] Blood group antibody screen Ql Negative [facility] HIstorical Ab Scr Status Negative [facility] Rh Nom (Bld) Positive [facility] CNCOon 12-11-2021 CNCO Letter Text [facility] ANES POSTPROC EVALon 022 ANES POSTPROC EVAL HNO ID: [id number] Author: Khanh Harrington MD Service: ? Author Type: Anesthesiologist Type: Anesthesia Postprocedure Evaluation Filed: 11/25/2021 4:12 PM Note Text: POST ANESTHESIA EVALUATION NOTE : 1980 Procedure Summary Date: 11/25/21 Room / Location: [place] [address] / [place] Anesthesia Start: 1257 Anesthesia Stop: 1352 [...] Documentation SIGNATURE: Khanh Harrington MD PATIENT NAME: Yesenia Martin DATE: November 25, 2021 TIME: 4:11 PM CSN: [id number] [facility] ANES PRE-OPon 11-25-2021 ANES PRE-OP HNO ID: [id number] Author: Khanh Harrington MD Service: ? Author Type: Anesthesiologist Type: Anesthesia Preprocedure Evaluation Filed: 11/25/2021 2:12 PM Note Text: ANESTHESIOLOGY DAY OF SURGERY NOTE : 1980 Procedure Information Anesthesia Start Date/Time: 11/25/21 1257 Procedure: DECOMPRESSION NERVE ULNAR ELBOW (Left: Elbow) Location: [place] OR02 / [place] Surgeons: Dave Sepulveda MD Estimated body [...] mg INTRAVENOUS q 5 MIN PRN - oxyCODONE-acetaminoph en 5-325 mg 1-2 tablet (PERCOCET) 1-2 tablet [...] Medications as of 11/25/2021 Medication Sig - HYDROcodone-acetamino phen (NORCO) 5-325 mg per tablet Take 1 [...] Surgery/Procedure. SIGNATURE: Khanh Harrington MD PATIENT NAME: Yesenia Martin DATE: November 25, 2021 TIME: 2:11 PM CSN: [id number] [facility] OPERATIVE NOon 11-25-2021 OPERATIVE NO HNO ID: [id number] Author: Dave Sepulveda MD Service: Orthopaedic Surgery Author Type: Physician Type: Operative Report Filed: 11/26/2021 8:09 AM Note Text: OPERATIVE/PROCEDURE REPORT LOG ID: [id number] SURGERY/PROCEDURE DATE: 11/25/2021 INCISION/PROCEDURE START TIME: 1:15 PM INCISION CLOSE/PROCEDURE END TIME: 1:45 PM SURGEON(S)/PROCEDURAL IST(S) AND PAINTER MAINTENANCE(S): Surgeon(s) and Role: * Dave Sepulveda MD - Primary Physician Landscape Nurseryman: Sarah Wesley PA-C SURGERY/PROCEDURE(S): Left, ulnar nerve decompression, in situ. ANESTHESIA: General with local. SURGERY/PROCEDURE DETAILS: This is a pleasant, ygkar-kcle-vmaobsjs, 40-year-old female who was seen in the [...] condition. PRE-OP/PRE-PROCEDURE DIAGNOSIS: Left elbow, ulnar neuropathy POST-OP/POST-PROCEDUR E DIAGNOSIS: Same as Preop ESTIMATED BLOOD LOSS: 20 mls SPECIMENS: None IMPLANTABLE DEVICES: None DRAINS: None COMPLICATIONS: None PARTICIPATION IN SURGERY/PROCEDURE: I/primary surgeon/proceduralist performed the procedure with assistance. No qualified resident/fellow was available. hair assistant was necessary for safe patient positioning, sterile prepping and draping. arm assistance, positioning and protection, soft tissue retraction, protection of vital structures and suture management during the case. Final skin closure, splint and cj application and safe to the recovery room in stable condition. SIGNATURE: Dave Sepulveda MD PATIENT NAME: Yesenia Martin DATE: November 26, 2021 TIME: 8:07 AM [facility] Upper extremity - lefton 10-29-2021 IMPRESSION: MILD NEURITIS OF THE ULNAR NERVE AT THE CUBITAL TUNNEL. Pantry Attendant: ALETA Transcribe Date/Time: Oct 29 2021 7:50A Dictated by : CLIFF MARIANO MD This examination was interpreted and the report reviewed and electronically signed by: CLIFF MARIANO MD on Oct 29 2021 2:22PM [facility] DIVISION OF RADIOLOGY * * *Final Report* [...] Appears grossly maintained. DIVISION OF RADIOLOGY Provider, [facility] 10/29/2021 * * *Final Report* * [...] THE ULNAR NERVE AT THE CUBITAL TUNNEL. Pantry Attendant: [facility] Transcribe Date/Time: Oct 29 2021 7:50A Dictated by : CLIFF MARIANO MD This examination was interpreted and the report reviewed and electronically signed by: CLIFF MARIANO MD on Oct 29 2021 2:22PM EST [facility] Radiology Study observation (narrative) [facility] US Upper extremity - leftOrd ered By: [facility] Provider on 10-29-2021 [facility] Anti TPO Antibody ([id number])Ord ered By: Search Engine Optimization Analyst on 03-06-2021 TPO Ab Qn [IU]/mL Normal 0-34 [facility]; [facility] Work Phone: Comment on above: PATIENT NOT FASTINGP ERFORMED BY: GERMÁN [facility] [id number] Picse[address] [place] [id number] BY: [address] [id number] C-REACTIVE PROTEIN ([id number])Or dered By: Search Engine Optimization Analyst on 03-06-2021 CRP [Mass/Vol] mg/L Normal 0-10 [facility]; [facility] Work Phone: Comment on above: PATIENT NOT FASTINGP ERFORMED BY: GERMÁN [facility] [id number] [facility] [facility] [id number] BY: [address] [id number] CCP ANTIBODY ([id number])Ordered By: Search Engine Optimization Analyst on 03-06-2021 Cyclic citrullinated peptide IgA+IgG IA Qn 3 {units} Normal 0-19 [facility]; [facility] Work Phone: Comment on above: Negative <20 Weak po sitive 20 - 39 Moderate positive 40 - 59 Strong positive >59 PATIENT NOT FASTINGP ERFORMED BY: GERMÁN [facility] [id number] [facility] [id number] BY: [address] [id number] HgA1C , Office ([id number])Ordere d By: Victorino Garcia on 03-06-2021 HbA1c (Bld) [Mass fraction] 5.5 % Normal 4.6 - 7.1 [facility]; [facility] Work Phone: Comment on above: 5.5 RHEUMATOID FACTOR-QUAL ([id number])Ordered By: Search Engine Optimization Analyst on 03-06-2021 Rheumatoid factor Qn [IU]/mL Normal [facility]; [facility] Work Phone: Comment on above: PATIENT NOT FASTINGP ERFORMED BY: GERMÁN [facility] [id number] [address] [place] [facility] [id number] BY: Trendslide[address] [id number] SED RATE ERYTHROCYTE ([id number]) Ordered By: Search Engine Optimization Analyst on 03-06-2021 ESR (Bld) [Velocity] 2 mm/h Normal 0-32 [facility] Internal Medicine; [facility] Work Phone: Comment on above: PATIENT NOT FASTINGP ERFORMED BY: GERMÁN [facility] Pyjsdb6599 [facility] [id number] BY: Motion Engine[address] [id number] Serum Protein Electrophoresi s (SPEP) (25859)Ordered By: Search Engine Optimization Analyst on 03-06-2021 Albumin [Mass/Vol] 4.1 g/dL Normal 2.9-4.4 [facility] Internal Medicine; [facility] Work Phone: Comment on above: PATIENT NOT FASTINGP ERFORMED BY: [facility] Uuwsyi0094 [facility] [id number] BY: Trendslide[address] [id number] Albumin/Globulin [Mass ratio] 1.6 {ratio} Normal 0.7-1.7 [facility]; [facility] Work Phone: Comment on above: PATIENT NOT FASTINGP ERFORMED BY: GERMÁN [facility] Qytuhq9462 [facility] [id number] BY: Trendslide[address] [id number] Alpha 1 globulin Elph [Mass/Vol] 0.2 g/dL Normal 0.0-0.4 [facility]; [facility] Work Phone: Comment on above: PATIENT NOT FASTINGP ERFORMED BY: [facility] Uubnki7847 [facility] [id number] BY: [address] [id number] Alpha 2 globulin Elph [Mass/Vol] 0.6 g/dL Normal 0.4-1.0 [facility]; [facility] Work Phone: Comment on above: PATIENT NOT FASTINGP ERFORMED BY: LabFormerly [facility]6370 [facility] [id number] BY: [address] [id number] Beta globulin Elph [Mass/Vol] 0.8 g/dL Normal 0.7-1.3 [facility]; [facility] Work Phone: Comment on above: PATIENT NOT FASTINGP ERFORMED BY: LabcoClara Maass Medical CenterDodozg2442 [facility] [id number] BY: [address] [id number] Gamma globulin Elph [Mass/Vol] 0.9 g/dL Normal 0.4-1.8 [facility]; [facility] Work Phone: Comment on above: PATIENT NOT FASTINGP ERFORMED BY: [facility]6370 [facility] [id number] BY: [address] [id number] Globulin (S) [Mass/Vol] 2.5 g/dL Normal 2.2-3.9 [facility]; [facility] Work Phone: Comment on above: PATIENT NOT FASTINGP ERFORMED BY: Motion EngineZachary [place] 6431170 [facility] [id number] BY: [address] [id number] Laboratory comment Isaac (Report) [facility] Normal [facility]; [facility] Work Phone: Comment on above: Protein electrophore sis scan will follow via computer, mail, orcourier delivery. PATIENT NOT FASTINGP ERFORMED BY: LabZachary Ville 6431170 [facility] [id number] BY: [address] [id number] Laboratory report . Normal Compreh ensive Internal Medicine; [facility] Work Phone: Comment on above: PATIENT NOT FASTINGP ERFORMED BY: Lab[facility] Jnlofc3993 [facility] [id number] BY: [address] [id number] Protein [Mass/Vol] 6.6 g/dL Normal 6.0-8.5 [facility] Internal Medicine; [facility] Work Phone: Comment on above: PATIENT NOT FASTINGP ERFORMED BY: [facility] Vwumda0402 [facility] [id number] BY: [address] [id number] Protein.monoclonal Elph [Mass/Vol] Not Observed Normal [facility]; [facility] Work Phone: Comment on above: PATIENT NOT FASTINGP ERFORMED BY: LabPolyServe Sqmdab4402 [facility] [id number] BY: [address] [id number] T3, FREE (TRIDOTHYRONINE) ([id number] 4269)Ordered By: Search Engine Optimization Analyst on 03-06-2021 Free T3 [Mass/Vol] 3.3 pg/mL Normal 2.0-4.4 [facility] Internal Medicine; [facility] Work Phone: Comment on above: PATIENT NOT FASTINGP ERFORMED BY: LabPolyServe Pjipvh2224 [facility] [id number] BY: [address] [id number] T4, FREE (THYROXINE) (18943) Ordered By: Search Engine Optimization Analyst on 03-06-2021 Free T4 [Mass/Vol] 1.42 ng/dL Normal 0.82-1.77 [facility] Internal Medicine; [facility] Work Phone: Comment on above: PATIENT NOT FASTINGP ERFORMED BY: [facility] Azmqiy5238 [facility] [id number] BY: [address] [id number] TSH (34795)Ordered By: Vince m Social Service Worker on 03-06-2021 TSH Qn 0.722 {uIU/mL} Normal 0.450-4.500 [facility] Internal Medicine; [facility] Work Phone: Comment on above: PATIENT NOT FASTINGP ERFORMED BY: [email or web address] TadeoDuckHook MediaFormerly [facility] [id number] BY: Lab[address] [id number] CALCIFEDIOL (62728)Ordered B y: Search Engine Optimization Analyst on 02-23-2021 25-hydroxyvitamin D [Mass/Vol] 63.2 ng/mL Normal 30.0-100.0 [facility]; [facility] Work Phone: Comment on above: Vitamin D deficiency has been defined by the [place] ofMedicine and an Endocrine Society practice guideline as alevel of serum 25-OH vitamin D less than 20 ng/mL (1,2).The Endocrine Society went on to further define vitamin Dinsufficiency as a level between 21 and 29 ng/mL (2).1. IOM ([place] of Medicine). 2010. Dietary reference intakes for calcium and D. [place]: The National Academies Press.2. Andrez MF, Jose Carlos MITCHELL, Rosales BE, et al. Evaluation, treatment, and prevention of vitamin D deficiency: an Endocrine Society clinical practice guideline. JCEM. 2010; 96(7):1911-30. Feb 23 2021; PATIENT WAS FASTINGPERFORMED BY: [email or web address] [address] [facility] View HospitalRightPath Paymentsin [place] [id number] CBC, Platelets & Auto Diff ( 30370)Ordered By: Search Engine Optimization Analyst on 02-23-2021 Basophils (Bld) [#/Vol] 0.0 10*3/uL Normal 0.0-0.2 [facility]; [facility] Work Phone: Comment on above: Feb 232021; PATIEN T WAS FASTINGPERFORMED BY: [email or web address] [address] [facility] Hospitalin [place] [id number] Basophils/100 WBC (Bld) 1 % Normal [facility]; [facility] Work Phone: Comment on above: Feb 232021; SUSANA Alfaro WAS FASTINGPERFORMED BY: CB [facility] Vfxoup2234 [address] RoadDublin [place] [id number] Eosinophils (Bld) [#/Vol] 0.0 10*3/uL Normal 0.0-0.4 [facility]; [facility] Work Phone: Comment on above: Feb 232021; SUSANA Alfaro WAS FASTINGPERFORMED BY: CB [facility] Uhumpk0600 [address]ade[address] RoadDublin [place] [id number] Eosinophils/100 WBC (Bld) 1 % Normal [facility]; [facility] Work Phone: Comment on above: Feb 232021; SUSANA Alfaro WAS FASTINGPERFORMED BY: [facility] Kzdydq1170 [address] RoadDublin [place] [id number] Erythrocyte distribution width (RBC) [Ratio] 12.2 % Normal 11.7-15.4 [facility]; [facility] Work Phone: Comment on above: Feb 232021; SUSANA Alfaro WAS FASTINGPERFORMED BY: [facility] Mhhahp1029 [address] RoadDublin [place] [id number] Hematocrit (Bld) [Volume fraction] 37.6 % Normal 34.0-46.6 [facility]; [facility] Work Phone: Comment on above: Feb 232021; SUSANA Alfaro WAS FASTINGPERFORMED BY: [facility] Llzcta3779 [address] RoadDublin [place] [id number] Hemoglobin (Bld) [Mass/Vol] 12.8 g/dL Normal 11.1-15.9 [facility]; [facility] Work Phone: Comment on above: Feb 232021; SUSANA Alfaro WAS FASTINGPERFORMED BY: CB [facility] Kdyzgz0043 [address] RoadDublin [place] [id number] Immature granulocytes (Bld) [#/Vol] 0.0 10*3/uL Normal 0.0-0.1 [facility]; [facility] Work Phone: Comment on above: Feb 232021; SUSANA Alfaro WAS FASTINGPERFORMED BY: [facility] Gynkvc0662 [address] RoadDublin [place] [id number] Immature granulocytes/100 WBC (Bld) 0 % Normal [facility]; [facility] Work Phone: Comment on above: Feb 232021; SUSANA Alfaro WAS FASTINGPERFORMED BY: [facility] Xzwkoe0673 [address] RoadDublin [place] [id number] Lymphocytes (Bld) [#/Vol] 1.0 10*3/uL Normal 0.7-3.1 [facility]; [facility] Work Phone: Comment on above: Feb 232021; SUSANA Alfaro WAS FASTINGPERFORMED BY: [facility] Bksayx7730 [address] RoadDublin [place] [id number] Lymphocytes/100 WBC (Bld) 25 % Normal [facility]; [facility] Work Phone: Comment on above: Feb 232021; SUSANA Alfaro WAS FASTINGPERFORMED BY: [facility] Exnmia9293 [address] RoadDublin [place] [id number] MCH (RBC) [Entitic mass] 28.8 pg Normal 26.6-33.0 [facility] Internal Medicine; [facility] Work Phone: Comment on above: Feb 232021; SUSANA Alfaro WAS FASTINGPERFORMED BY: [facility] Guklil0949 [address] RoadDublin [place] [id number] MCHC (RBC) [Mass/Vol] 34.0 g/dL Normal 31.5-35.7 [facility] prehensive Internal Medicine; [facility] Work Phone: Comment on above: Feb 232021; SUSANA Alfaro WAS FASTINGPERFORMED BY: [facility] Vzmwrr4502 [address] RoadDublin [place] [id number] MCV (RBC) [Entitic vol] 85 fL Normal 79-97 [facility]; [facility] Work Phone: Comment on above: Feb 232021; SUSANA Alfaro WAS FASTINGPERFORMED BY: [facility] Rvidrd4116 [address] RoadDublin [place] [id number] Monocytes (Bld) [#/Vol] 0.3 10*3/uL Normal 0.1-0.9 [facility]; [facility] Work Phone: Comment on above: Feb 232021; SUSANA Alfaro WAS FASTINGPERFORMED BY: CB [facility] Jsrzqs1022 [address] RoadDublin [place] [id number] Monocytes/100 WBC (Bld) 7 % Normal [facility]; [facility] Work Phone: Comment on above: Feb 232021; SUSANA Alfaro WAS FASTINGPERFORMED BY: CB [facility] Pbhjuo3137 [address] RoadDublin [place] [id number] Neutrophils (Bld) [#/Vol] 2.8 10*3/uL Normal 1.4-7.0 [facility] Internal Medicine; [facility] Work Phone: Comment on above: Feb 232021; SUSANA Alfaro WAS FASTINGPERFORMED BY: CB [facility] Ujvzta9850 [address] RoadDublin [place] [id number] Neutrophils/100 WBC (Bld) 66 % Normal [facility] Internal Medicine; [facility] Work Phone: Comment on above: Feb 232021; SUSANA Alfaro WAS FASTINGPERFORMED BY: CB [facility] Jnktre0747 [address] RoadDublin [place] [id number] Platelets (Bld) [#/Vol] 216 10*3/uL Normal 150-450 [facility]; [facility] Work Phone: Comment on above: Feb 232021; SUSANA Alfaro WAS FASTINGPERFORMED BY: CB [facility] Xpnuoi3226 [address] RoadDublin [place] [id number] RBC (Bld) [#/Vol] 4.44 10*6/uL Normal 3.77-5.28 [facility] Internal Medicine; [facility] Work Phone: Comment on above: Feb 232021; SUSANA Alfaro WAS FASTINGPERFORMED BY: CB [facility] Wdljpx4709 [address] RoadDublin [place] [id number] WBC (Bld) [#/Vol] 4.1 10*3/uL Normal 3.4-10.8 [facility] Internal Medicine; [facility] Work Phone: Comment on above: Feb 232021; SUSANA Alfaro WAS FASTINGPERFORMED BY: CB [facility] Odxdse9428 [address] RoadDublin [place] [id number] Metabolic Panel, Comprehensi ve (09742)Ordered By: Search Engine Optimization Analyst on 02-23-2021 Albumin [Mass/Vol] 4.6 g/dL Normal 3.8-4.8 [facility] Internal Medicine; [facility] Work Phone: Comment on above: Feb 23 2021; PATIENT WAS FASTINGPERFORMED BY: CB [facility] Qimyyj2397 [address] RoadDublin [place] [id number] Albumin/Globulin [Mass ratio] 2.6 {ratio} Abnormal 1.2-2.2 [facility]; [facility] Work Phone: Comment on above: Feb 23 2021; PATIENT WAS FASTINGPERFORMED BY: CB [facility] Tqwujv0723 [address] RoadDublin [place] [id number] ALP [Catalytic activity/Vol] 25 U/L Abnormal 44-121 [facility]; [facility] Work Phone: Comment on above: Please note refere nce interval change Feb 23 2021; PATIENT WAS FASTINGPERFORMED BY: CB [facility] Jfkicq4508 [address] RoadDublin [place] [id number] ALT [Catalytic activity/Vol] 8 U/L Normal 0-32 [facility]; [facility] Work Phone: Comment on above: Feb 23 2021; PATIENT WAS FASTINGPERFORMED BY: CB [facility] Hfihbs6800 [address] RoadDublin [place] [id number] AST [Catalytic activity/Vol] 14 U/L Normal 0-40 [facility]; [facility] Work Phone: Comment on above: Feb 23 2021; PATIENT WAS FASTINGPERFORMED BY: CB [facility] Mfgroy9034 [address] RoadDublin [place] [id number] Bilirubin [Mass/Vol] 0.5 mg/dL Normal 0.0-1.2 [facility] rehensive Internal Medicine; [facility] Work Phone: Comment on above: Feb 23 2021; PATIENT WAS FASTINGPERFORMED BY: GERMÁN Aragon6370 Shwetha [facility]veryPerson [facility] [id number] Calcium [Mass/Vol] 8.8 mg/dL Normal 8.7-10.2 [facility] Internal Medicine; [facility] Work Phone: Comment on above: Feb 23 2021; PATIENT WAS FASTINGPERFORMED BY: GERMÁN lCifford Xxiyjh2607 [facility] [id number] Chloride [Moles/Vol] 108 mmol/L Abnormal 96-106 [facility] rehensive Internal Medicine; [facility] Work Phone: Comment on above: Feb 23 2021; PATIENT WAS FASTINGPERFORMED BY: Venessa Ajdbnh6195 [facility] [id number] CO2 [Moles/Vol] 19 mmol/L Abnormal 20-29 [facility] Internal Medicine; [facility] Work Phone: Comment on above: Feb 23 2021; PATIENT WAS FASTINGPERFORMED BY: GERMÁN Aragon6370 [facility] [id number] Creatinine [Mass/Vol] 0.66 mg/dL Normal 0.57-1.00 [facility]erens[facility]; [facility] Work Phone: Comment on above: Feb 23 2021; PATIENT WAS FASTINGPERFORMED BY: Venessa Zbnpqk6552 [facility] [id number] GFR/1.73 sq M.predicted among blacks CKD-EPI (S/P/Bld) [Vol rate/Area] 128 mL/min/1.73 Normal [facility]; [facility] Work Phone: Comment on above: In accordance with recommendations from the NKF-ASN Task force, [facility] is in the process of updating its eGFR calculation to the 2020 CKD-EPI creatinine equation that estimates kidney function without a race variable. Feb 23 2021; PATIENT WAS FASTINGPERFORMED BY: GERMÁN Tapia Obciuf4496 [address] RoadDublin [place] [id number] GFR/1.73 sq M.predicted among non-blacks CKD-EPI (S/P/Bld) [Vol rate/Area] 111 mL/min/1.73 Normal [facility]; [facility] Work Phone: Comment on above: Feb 23 2021; PATIENT WAS FASTINGPERFORMED BY: [facility] Yrrphc8638 [address] RoadDublin [place] [id number] Globulin (S) [Mass/Vol] 1.8 g/dL Normal 1.5-4.5 [facility]; [facility] Work Phone: Comment on above: Feb 23 2021; PATIENT WAS FASTINGPERFORMED BY: [facility] Nginjd8611 [address] RoadDublin [place] [id number] Glucose [Mass/Vol] 99 mg/dL Normal 65-99 [facility] Internal Medicine; [facility] Work Phone: Comment on above: Feb 23 2021; PATIENT WAS FASTINGPERFORMED BY: Labcox south Csxunm3889 [address] RoadDublin [place] [id number] Potassium [Moles/Vol] 4.1 mmol/L Normal 3.5-5.2 [facility] prehensive Internal Medicine; [facility] Work Phone: Comment on above: Feb 23 2021; PATIENT WAS FASTINGPERFORMED BY: [facility] Lfpydq2092 [address] RoadDublin [place] [id number] Protein [Mass/Vol] 6.4 g/dL Normal 6.0-8.5 [facility] Internal Medicine; [facility] Work Phone: Comment on above: Feb 23 2021; PATIENT WAS FASTINGPERFORMED BY: [facility] Ygeflv3339 [address] RoadDublin [place] [id number] Sodium [Moles/Vol] 141 mmol/L Normal 134-144 [facility] Internal Medicine; [facility] Work Phone: Comment on above: Feb 23 2021; PATIENT WAS FASTINGPERFORMED BY: [facility] Svdbym6155 [address] RoadDublin [place] [id number] Urea nitrogen [Mass/Vol] 12 mg/dL Normal 6-24 [facility]; [facility] Work Phone: Comment on above: Feb 23 2021; PATIENT WAS FASTINGPERFORMED BY: CB [facility] Hhvsif6925 [address] RoadDublin [place] [id number] Urea nitrogen/Creatinine [Mass ratio] 18 mg/mg Normal 9-23 [facility]; [facility] Work Phone: Comment on above: Feb 23 2021; PATIENT WAS FASTINGPERFORMED BY: [facility] Rqivac4375 [address] RoadDublin [place] [id number] Systemic Lupus Profile (8623 5)Ordered By: Search Engine Optimization Analyst on 02-23-2021 Chromatin Ab Qn <0.2 Normal 0.0-0.9 [facility] Internal Medicine; [facility] Work Phone: Comment on above: Feb 23, 2021; SUSANA Alfaro WAS FASTINGPERFORMED BY: [facility] Afcovg7250 [address] RoadDublin [place] [id number] DNA double strand Ab Qn (S) 1 [IU]/mL Normal 0-9 [facility]; [facility] Work Phone: Comment on above: Negative <5 Equivoca l 5 - 9 Positive >9 Feb 23, 2021; SUSANA Alfaro WAS FASTINGPERFORMED BY: CB [facility] Kpskvy8596 [address] RoadDublin [place] [id number] Rheumatoid factor Qn [IU]/mL Normal Comp rehensive Internal Medicine; [facility] Work Phone: Comment on above: Feb 23, 2021; SUSANA Alfaro WAS FASTINGPERFORMED BY: CB [facility] Spuand0005 [address] RoadDublin [place] [id number] Ribonucleoprotein extractable nuclear Ab Qn (S) <0.2 Normal 0.0-0.9 [facility]; [facility] Work Phone: Comment on above: Feb 23, 2021; SUSANA Alfaro WAS FASTINGPERFORMED BY: CB [facility] Voickh1731 [address] RoadDublin [place] [id number] Sjogrens syndrome-A extractable nuclear Ab Qn (S) <0.2 Normal 0.0-0.9 [facility]; [facility] Work Phone: Comment on above: Feb 23, 2021; SUSANA Alfaro WAS FASTINGPERFORMED BY: GERMÁN [facility] Ilbnst6142 [address] RoadDublin [place] [id number] Sjogrens syndrome-B extractable nuclear Ab Qn (S) <0.2 Normal 0.0-0.9 [facility]; [facility] Work Phone: Comment on above: Feb 23, 2021; SUSANA Alfaro WAS FASTINGPERFORMED BY: [employer] [facility] Ghipse1329 [address] RoadDublin [place] [id number] Nagy extractable nuclear Ab Qn (S) <0.2 Normal 0.0-0.9 [facility]; [facility] Work Phone: Comment on above: Feb 23, 2021; SUSANA Alfaro WAS FASTINGPERFORMED BY: LabPolyServerp Gjcath1540 [address] RoadDublin [place] [id number] TSH (THYROID STIMULATING HOR RAMBO) (36096)Ordered By: Search Engine Optimization Analyst on 02-23-2021 TSH Qn 1.120 {uIU/mL} Normal 0.450-4.500 [facility] Internal Medicine; [facility] Work Phone: Comment on above: Feb 23 2021; PATIENT WAS FASTINGPERFORMED BY: LabPolyServerp Vezqxc8070 [address] RoadDublin [place] [id number] VITAMIN B12 AND FOLATES (826 07)Ordered By: Search Engine Optimization Analyst on 02-23-2021 Cobalamin (Vitamin B12) [Mass/Vol] 483 pg/mL Normal 232-1245 [facility]; [facility] Work Phone: Comment on above: Feb 23 2021; PATIENT WAS FASTINGPERFORMED BY: [employer] LabPolyServerp Diaogv2783 [address] RoadDublin [place] [id number] Folate [Mass/Vol] 16.6 ng/mL Normal Compreh ensive Internal Medicine; [facility] Work Phone: Comment on above: A serum folate gardenia ntration of less than 3.1 ng/mL isconsidered to represent clinical deficiency. Feb 23 2021; PATIENT WAS FASTINGPERFORMED BY: LabFormerly [facility]6370 Shwetha ChristiansonEcu Health North Hospitalmaxi [place] [id number] [place] 05-17-2019 JAYANTN Telephone (NUAGAK) YESENIA MARTIN ([id number]) 1980 F Date Time Provider Department 05/17/19 SANDRA AGUERO (VENEER JOINTER RETURNER, JAYANT) DEREK During your visit today, we recorded the following information about you: Sandra Aguero APRN.CNP 05/17/2019 12:48 PM Signed I called and spoke with Yesenia today. Patient: Yesenia Martin Date of : 1980 (home) [phone] (cell) ALLERGIES Allergen Reactions - Seasonal [Other] Patient last appointment: Visit date not found Patient next appointment: 05/22/2019 Reason for call: Called and spoke to Yesenia today regarding her up coming visit with Dr. Miramontes. Stated she would like a second opinion regarding her left arm numbness and tingling. She has been seen at the [facility], Dr. Tapia, who recommended a disk replacement at C5-6 for these symptoms. She has agreed to have her imaging sent to our office for review. We will set up a virtual meeting with either Dr. Miramontes or me to discuss the findings and recommendations once discs received. All questions and concerns addressed. Pt also underwent EMG/NC and PT eval. In Clin[facility]. The patients preferred pharmacy has been captured for this encounter? no Sandra Aguero APRN.CNP Allergies As of Date: 05/17/2019 Noted Allergy [...] UNSPECIFIED [J45.909] More... MYALGIA AND MYOSITIS NOS [OYX6908] MIGRAINE NOS W/O MENTN INTRACTABLE [G43.909] More... [...] Biliary colic [K80.50] 03/14/2015 Encounter Status:Closed by SANDRA AGUERO CNP on 05/17/19 Normal [facility] AISHA CULTURE-STOOL (37704)Ord ered By: Search Engine Optimization Analyst on 03-06-2019 Bacteria identified Cx Nom (Unsp spec) NCI Normal [facility] Work Phone: Comment on above: No Campylobacter spe cies isolated. PATIENT NOT FASTINGP ERFORMED BY: CB [facility] Hxnzob5755 [facility] [id number] Information: SRC:ST SRC:ST Bacteria identified Cx Nom (Unsp spec) NSS Normal [facility] Work Phone: Comment on above: No Salmonella or Laury gella recovered. PATIENT NOT FASTINGP ERFORMED BY: CB [facility] Mtpfam1165 [address] RoadDublin [place] [id number] Information: SRC:ST SRC:ST Campylobacter sp identified Org specific cx Nom (Stl) Final report Normal Comprehens [facility] Internal Medicine Work Phone: Comment on above: PATIENT NOT FASTINGP ERFORMED BY: CB [facility] Sntnol4331 [address] RoadDublin [place] [id number] Information: SRC:ST SRC:ST E. coli shiga-like toxin IA Ql (Stl) Negative Normal [facility] Work Phone: Comment on above: PATIENT NOT FASTINGP ERFORMED BY: CB [facility] Hewnuc2540 [address] RoadDublin [place] [id number] Information: SRC:ST SRC:ST E. coli shiga-like toxin IA Ql (Stl) Negative Normal [facility]; [facility] Work Phone: Comment on above: PATIENT NOT FASTINGP ERFORMED BY: CB [facility] Hnlweh1355 [address] RoadDublin [place] [id number] Information: SRC:ST SRC:ST Salmonella and Shigella sp identified Org specific cx Nom (Stl) Final report Normal [facility] Work Phone: Comment on above: PATIENT NOT FASTINGP ERFORMED BY: CB [facility] Buxbka3735 [address]Dublin [place] [id number] Information: SRC:ST SRC:ST CBC & PLATELETS (AUTO) (8502 7)Ordered By: Search Engine Optimization Analyst on 03-06-2019 Erythrocyte distribution width (RBC) [Ratio] 14.1 % Normal 11.7-15.4 [facility] Work Phone: Comment on above: PATIENT NOT FASTINGP ERFORMED BY: CB [facility] Rhpswg7338 [address] RoadDublin [place] [id number] Hematocrit (Bld) [Volume fraction] 36.6 % Normal 34.0-46.6 [facility] Work Phone: Comment on above: PATIENT NOT FASTINGP ERFORMED BY: CB [facility] Pgfrot6175 [address] RoadDublin [place] [id number] Hemoglobin (Bld) [Mass/Vol] 12.2 g/dL Normal 11.1-15.9 [facility] Internal Medicine Work Phone: Comment on above: PATIENT NOT FASTINGP ERFORMED BY: CB [facility] Fzdsnk9552 [address] RoadDublin [place] [id number] MCH (RBC) [Entitic mass] 28.6 pg Normal 26.6-33.0 [facility] Internal Medicine Work Phone: Comment on above: PATIENT NOT FASTINGP ERFORMED BY: CB [facility] Dosdpe5687 [address] RoadDublin [place] [id number] MCHC (RBC) [Mass/Vol] 33.3 g/dL Normal 31.5-35.7 [facility] Internal Medicine Work Phone: Comment on above: PATIENT NOT FASTINGP ERFORMED BY: CB [facility] Fdxaxi8111 [address]Dublin [place] [id number] MCV (RBC) [Entitic vol] 86 fL Normal 79-97 [facility] Internal Medicine Work Phone: Comment on above: PATIENT NOT FASTINGP ERFORMED BY: CB [facility] Jgaisd0007 [address] RoadDublin [place] [id number] Platelets (Bld) [#/Vol] 202 {x10E3/uL} Normal 150-450 [facility] Work Phone: Comment on above: PATIENT NOT FASTINGP ERFORMED BY: CB [facility] Iacrpe4599 [address] RoadDublin [place] [id number] Platelets (Bld) [#/Vol] 202 10*3/uL Normal 150-450 [facility]; [facility] Work Phone: Comment on above: PATIENT NOT FASTINGP ERFORMED BY: CB [facility] Kowxdv8757 [address] RoadDublin [place] [id number] RBC (Bld) [#/Vol] 4.27 {x10E6/uL} Normal 3.77-5.28 [facility] Work Phone: Comment on above: PATIENT NOT FASTINGP ERFORMED BY: GERMÁN Aragon[address] [facility] [place] [id number] RBC (Bld) [#/Vol] 4.27 10*6/uL Normal 3.77-5.28 [facility]; [facility] Work Phone: Comment on above: PATIENT NOT FASTINGP ERFORMED BY: GERMÁN LabChristoph Ygfowc[address] [facility] [id number] WBC (Bld) [#/Vol] 4.9 {x10E3/uL} Normal 3.4-10.8 [facility] Work Phone: Comment on above: PATIENT NOT FASTINGP ERFORMED BY: GERMÁN Clifford Dfgrea[address] [facility] [id number] WBC (Bld) [#/Vol] 4.9 10*3/uL Normal 3.4-10.8 [facility] Internal Medicine; [facility] Work Phone: Comment on above: PATIENT NOT FASTINGP ERFORMED BY: GERMÁN Clifford Rtlhot7757 [facility] [id number] Celiac Disease Comphrehensiv e Profile ([id number])Ordered By: Search Engine Optimization Analyst on 03-06-2019 Endomysium IgA Ql (S) Negative Normal [facility] prehensive Internal Medicine Work Phone: Comment on above: PATIENT NOT FASTINGP ERFORMED BY: GERMÁN LabChristoph Majguy[address] [facility] [id number] Information: [id number] Endomysium IgA Ql (S) Negative Normal [facility] prehensive Internal Medicine; [facility] Work Phone: Comment on above: PATIENT NOT FASTINGP ERFORMED BY: GERMÁN LabChristoph Fzketv[address] [facility] [id number] Information: [id number] Gliadin peptide IgA Qn (S) 4 {units} Normal 0-19 [facility] Work Phone: Comment on above: Negative 0 - 19 Weak Positive 20 - 30 Moderate to Strong Positive >30 PATIENT NOT FASTINGP ERFORMED BY: GERMÁN Aragon6370 [facility] [id number] Information: [id number] Gliadin peptide IgG Qn (S) 2 {units} Normal 0-19 [facility] Work Phone: Comment on above: Negative 0 - 19 Weak Positive 20 - 30 Moderate to Strong Positive >30 PATIENT NOT FASTINGP ERFORMED BY: GERMÁN GarciaH[facility] Wurguc0243 [facility] [id number] Information: [id number] IgA [Mass/Vol] 109 mg/dL Normal 87-352 Comprehens kyle Internal Medicine Work Phone: Comment on above: PATIENT NOT FASTINGP ERFORMED BY: GERMÁN [facility] Feogqp1303 [facility] [id number] Information: [id number] tTG IgA Qn (S) <2 Normal 0-3 Comprehens kyle [facility] Medicine Work Phone: Comment on above: Negative 0 - 3 Weak Positive 4 - 10 Positive >10 . Tissue Transglutaminase (tTG) has been identified as the endomysial antigen. Studies have demonstr- ated that endomysial IgA antibodies have over 99% specificity for gluten sensitive enteropathy. PATIENT NOT FASTINGP ERFORMED BY: GERMÁN GarciaHelen [facility]6370 [facility] [id number] Information: [id number] tTG IgG Qn (S) <2 Normal 0-5 Comprehens kyle [facility] Medicine Work Phone: Comment on above: Negative 0 - 5 Weak Positive 6 - 9 Positive >9 PATIENT NOT FASTINGP ERFORMED BY: GERMÁN GarciaH[facility] Mptpai9834 [facility] [id number] Information: [id number] LEUKOCYTE COUNT, FECAL (8905 5)Ordered By: Search Engine Optimization Analyst on 03-06-2019 WBC LM Ql (Stl) NWBC Normal Comprehen sive Internal Medicine Work Phone: Comment on above: No white blood cells seen. PATIENT NOT FASTINGP ERFORMED BY: CB [facility] Ccgyuf4338 [address] RoadDublin [place] [id number] WBC LM Ql (Stl) Final report Normal Compreh ensive Internal Medicine Work Phone: Comment on above: PATIENT NOT FASTINGP ERFORMED BY: CB [facility] Odosdv3186 [address] RoadDublin [place] [id number] Metabolic Panel, Comprehensi ve ([id number])Ordered By: Search Engine Optimization Analyst on 03-06-2019 Albumin [Mass/Vol] 4.4 g/dL Normal 3.8-4.8 Compre [facility] Internal Medicine Work Phone: Comment on above: Please note refere nce interval change PATIENT NOT FASTINGP ERFORMED BY: CB [facility] Nqrvhh6491 [address] RoadDublin [place] [id number] Albumin/Globulin [Mass ratio] 1.9 {ratio} Normal 1.2-2.2 [facility] Work Phone: Comment on above: PATIENT NOT FASTINGP ERFORMED BY: CB [facility] Tdxoac5135 [address] RoadDublin [place] [id number] ALP [Catalytic activity/Vol] 25 [iU]/L Abnormal 39-117 [facility] Work Phone: Comment on above: PATIENT NOT FASTINGP ERFORMED BY: CB [facility] Vwsdnj0789 [address] RoadDublin [place] [id number] ALP [Catalytic activity/Vol] 25 U/L Abnormal 39-117 [facility]; [facility] Work Phone: Comment on above: PATIENT NOT FASTINGP ERFORMED BY: CB [facility] Tgoeip3400 [address] RoadDublin [place] [id number] ALT [Catalytic activity/Vol] 8 [iU]/L Normal 0-32 [facility] Work Phone: Comment on above: PATIENT NOT FASTINGP ERFORMED BY: CB [facility] Szfdyo2197 [address] RoadDublin [place] [id number] ALT [Catalytic activity/Vol] 8 U/L Normal 0-32 [facility]; [facility] Work Phone: Comment on above: PATIENT NOT FASTINGP ERFORMED BY: CB [facility] Imcuzr1388 [address] RoadDublin [place] [id number] AST [Catalytic activity/Vol] 9 [iU]/L Normal 0-40 [facility] Work Phone: Comment on above: PATIENT NOT FASTINGP ERFORMED BY: CB [facility] Tihnqn0980 [address] RoadDublin [place] [id number] AST [Catalytic activity/Vol] 9 U/L Normal 0-40 [facility]; [facility] Work Phone: Comment on above: PATIENT NOT FASTINGP ERFORMED BY: CB [facility] Bkyecc9366 [address] RoadDublin [place] [id number] Bilirubin [Mass/Vol] 0.5 mg/dL Normal 0.0-1.2 Comp [facility] centerensive Internal Medicine Work Phone: Comment on above: PATIENT NOT FASTINGP ERFORMED BY: CB [facility] Hckjdm7742 [address] RoadDublin [place] [id number] Calcium [Mass/Vol] 9.1 mg/dL Normal 8.7-10.2 [facility] Internal Medicine Work Phone: Comment on above: PATIENT NOT FASTINGP ERFORMED BY: CB [facility] Xigobn9349 [address] RoadDublin [place] [id number] Chloride [Moles/Vol] 103 mmol/L Normal 96-106 [facility] Work Phone: Comment on above: PATIENT NOT FASTINGP ERFORMED BY: CB [facility] Dqqmse2520 [address] RoadDublin [place] [id number] CO2 [Moles/Vol] 24 mmol/L Normal 20-29 [facility] Internal Medicine Work Phone: Comment on above: PATIENT NOT FASTINGP ERFORMED BY: CB [facility] Lbbmzo5140 [address] RoadDublin [place] [id number] Creatinine [Mass/Vol] 0.58 mg/dL Normal 0.57-1.00 [facility] Work Phone: Comment on above: PATIENT NOT FASTINGP ERFORMED BY: CB [facility] Fksolq6091 [address] RoadDublin [place] [id number] GFR/1.73 sq M predicted among blacks CKD-EPI (S/P/Bld) [Vol rate/Area] 135 mL/min/1.73 Normal [facility] Work Phone: Comment on above: PATIENT NOT FASTINGP ERFORMED BY: CB [facility] Ryuosu7120 [address] RoadDublin [place] [id number] GFR/1.73 sq M predicted among non-blacks CKD-EPI (S/P/Bld) [Vol rate/Area] 117 mL/min/1.73 Normal [facility] Work Phone: Comment on above: PATIENT NOT FASTINGP ERFORMED BY: CB [facility] Wjlflg2506 [address] RoadDublin [place] [id number] Globulin (S) [Mass/Vol] 2.3 g/dL Normal 1.5-4.5 [facility] Internal Medicine Work Phone: Comment on above: PATIENT NOT FASTINGP ERFORMED BY: CB [facility] Sojlcu6770 [address] RoadDublin [place] [id number] Glucose [Mass/Vol] 95 mg/dL Normal 65-99 [facility] Internal Medicine Work Phone: Comment on above: PATIENT NOT FASTINGP ERFORMED BY: CB [facility] Wuljfa2750 [address] RoadDublin [place] [id number] Potassium [Moles/Vol] 4.6 mmol/L Normal 3.5-5.2 [facility] Internal Medicine Work Phone: Comment on above: PATIENT NOT FASTINGP ERFORMED BY: CB [facility] Smtkga7721 [address] RoadDublin [place] [id number] Protein [Mass/Vol] 6.7 g/dL Normal 6.0-8.5 [facility] Internal Medicine Work Phone: Comment on above: PATIENT NOT FASTINGP ERFORMED BY: CB [facility] Ogpxfa9846 [address] RoadDublin [place] [id number] Sodium [Moles/Vol] 141 mmol/L Normal 134-144 [facility] Internal Medicine Work Phone: Comment on above: PATIENT NOT FASTINGP ERFORMED BY: GERMÁN MessageGears Bstwwp2958 [facility]Person [facility] [id number] Urea nitrogen [Mass/Vol] 9 mg/dL Normal 6-20 [facility] Work Phone: Comment on above: PATIENT NOT FASTINGP ERFORMED BY: Motion EngineHca [facility] Division Rtwtpu[address] NewswiredFormerly [facility] [id number] Urea nitrogen/Creatinine [Mass ratio] 16 mg/mg Normal 9-23 [facility] Work Phone: Comment on above: PATIENT NOT FASTINGP ERFORMED BY: MessageGears Nor1ox NewswiredFormerly [facility] [id number] OCCULT BLOOD FECES SCREEN ([id number])Ordered By: Search Engine Optimization Analyst on 03-06-2019 Lower GI hemoglobin IA Ql (Stl) Negative Normal [facility] Work Phone: Comment on above: PATIENT NOT FASTINGP ERFORMED BY: MessageGears Fafvah[address] NewswiredFormerly [facility] [id number] Lower GI hemoglobin IA Ql (Stl) Negative Normal [facility]; [facility] Work Phone: Comment on above: PATIENT NOT FASTINGP ERFORMED BY: MessageGears Simeop[address] NewswiredFormerly [facility] [id number] OVA & PARASITE DIR SMEAR ([id number])Ordered By: Search Engine Optimization Analyst on 03-06-2019 Ova and parasites identified Concentration Nom (Stl) NOCP1 Normal [facility] Work Phone: Comment on above: No ova, cysts, or pa rasites seen. .One negative specimen does not rule out the possibility of aparasitic infection. PATIENT NOT FASTINGP ERFORMED BY: MessageGears Ehmbps4814 [address] NewswiredFormerly [facility] [id number] Ova and parasites identified LM Nom (Unsp spec) Final report Normal [facility] Work Phone: Comment on above: These results were o btained using wet preparation(s) and trichromestained smear. This test does not include testing for Cryptosporidiumparvum, Cyclospora, or Microsporidia. PATIENT NOT FASTINGP ERFORMED BY: MessageGears Ydbshb1217 TadeoAquarium Life CustomsPerson Memorial Hospital [id number] TSH (THYROID STIMULATING HOR RAMBO) ([id number])Ordered By: Search Engine Optimization Analyst on 03-06-2019 TSH Qn 1.020 {uIU/mL} Normal 0.450-4.500 Lula murguia Internal Medicine Work Phone: Comment on above: PATIENT NOT FASTINGP ERFORMED BY: [facility] Pthdfl9214 [place] NewswiredFormerly [facility] [id number] Vital Signs Date Time Vital Sign Value Performing Clinician Facility 11-16-2024 12:53-0400 Body height 157.[address] Carmen Jang MD Work Phone: [facility] 11-16-2024 12:53-0400 Body mass index (BMI) [Ratio] 23.8 kg/m2 Dr. Carmen Jang MD Work Phone: [facility] 11-16-2024 12:53-0400 Body temperature 97.7 [degF] Dr. Carmen Jang MD Work Phone: [facility] 11-16-2024 12:53-0400 Body weight 58.[address] Carmen Jang MD Work Phone: [facility] 11-16-2024 12:53-0400 Diastolic blood pressure 80 mm[Hg] Dr. Carmen Jang MD Work Phone: [facility] 11-16-2024 12:53-0400 Heart rate 75 /min Dr. Carmen Jang MD Work Phone: [facility] 11-16-2024 12:53-0400 Respiratory rate 17 /min Dr. Carmen Jang MD Work Phone: [facility] 11-16-2024 12:53-0400 SaO2% (BldA) [Mass fraction] 97 % Dr. Carmen Jang MD Work Phone: [facility] 11-16-2024 12:53-0400 Systolic blood pressure 134 mm[Hg] Dr. Carmen Jang MD Work Phone: [facility] 09-13-2024 10:38-0400 Body height 157.[address] Carmen Jang MD Work Phone: [facility] 08-01-2024 12:04-0400 Body temperature 98.1 [degF] Giuseppe Shana 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-C Work Phone: [facility] 08-01-2024 12:04-0400 Diastolic blood pressure 55 mm[Hg] Giuseppe Shana 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-C Work Phone: [facility] 08-01-2024 12:04-0400 Heart rate 95 /min Giuseppe Shana 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-C Work Phone: [facility] 08-01-2024 12:04-0400 Respiratory rate 16 /min Giuseppe Shana 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-C Work Phone: [facility] 08-01-2024 12:04-0400 SaO2% (BldA) [Mass fraction] 98 % Giuseppe Shana 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-C Work Phone: [facility] 08-01-2024 12:04-0400 Systolic blood pressure 117 mm[Hg] Giuseppe Shana 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-C Work Phone: [facility] 07-31-2024 17:28-0400 Body height 157.48 cm Giuseppe Shana 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-C Work Phone: [facility] 07-31-2024 17:28-0400 Body mass index (BMI) [Ratio] 24.2 kg/m2 Giuseppe Shana 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-C Work Phone: [facility] 07-31-2024 17:28-0400 Body weight 60 kg Giuseppe Shana 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-C Work Phone: [facility] 07-31-2024 16:30-0400 Inhaled oxygen flow rate 4 L/min Giuseppe Shana 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-C Work Phone: [facility] 07-11-2024 11:53-0400 Body height 157.48 cm Giuseppe Milleram 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-C Work Phone: [facility] 07-11-2024 11:53-0400 Body mass index (BMI) [Ratio] 25 kg/m2 Giuseppe Milleram 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-C Work Phone: [facility] 07-11-2024 11:53-0400 Body temperature 97.8 [degF] Giuseppe Milleram 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-C Work Phone: [facility] 07-11-2024 11:53-0400 Body weight 62.14 kg Giuseppe Milleram 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-C Work Phone: [facility] 07-11-2024 11:53-0400 Diastolic blood pressure 82 mm[Hg] Giuseppe Milleram 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-C Work Phone: [facility] 07-11-2024 11:53-0400 Heart rate 86 /min Giuseppe Milleram 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-C Work Phone: [facility] 07-11-2024 11:53-0400 Respiratory rate 16 /min Giuseppe Milleram 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-C Work Phone: [facility] 07-11-2024 11:53-0400 SaO2% (BldA) [Mass fraction] 98 % Giuseppe Milleram 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-C Work Phone: [facility] 07-11-2024 11:53-0400 Systolic blood pressure 112 mm[Hg] Giuseppe Milleram 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-C Work Phone: [facility] 06-22-2024 09:28-0400 Body mass index (BMI) [Ratio] 24.1 kg/m2 Giuseppe Milleram 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-C Work Phone: [facility] 06-22-2024 09:28-0400 Body weight 60.78 kg Giuseppe Milleram 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-C Work Phone: [facility] 06-01-2024 09:29-0400 Body mass index (BMI) [Ratio] 24.3 kg/m2 Giuseppe Milleram 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-C Work Phone: [facility] 06-01-2024 09:29-0400 Body temperature 98.6 [degF] Giuseppe Shana 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-C Work Phone: [facility] 06-01-2024 09:29-0400 Body weight 61.23 kg Giuseppe Milleram 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-C Work Phone: [facility] 06-01-2024 09:29-0400 Diastolic blood pressure 72 mm[Hg] Giuseppe Milleram 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-C Work Phone: [facility] 06-01-2024 09:29-0400 Heart rate 81 /min Giuseppe Milleram 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-C Work Phone: [facility] 06-01-2024 09:29-0400 Respiratory rate 16 /min Giuseppe Milleram 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-C Work Phone: [facility] 06-01-2024 09:29-0400 SaO2% (BldA) [Mass fraction] 100 % Giuseppe Milleram 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-C Work Phone: [facility] 06-01-2024 09:29-0400 Systolic blood pressure 128 mm[Hg] Giuseppe Milleram 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-C Work Phone: [facility] 05-18-2024 09:29-0400 Body mass index (BMI) [Ratio] 24.7 kg/m2 Giuseppe Milleram 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-C Work Phone: [facility] 05-18-2024 09:29-0400 Body temperature 96.7 [degF] Giuseppe Shana 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-C Work Phone: [facility] 05-18-2024 09:29-0400 Body weight 61.29 kg Giuseppe Milleram 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-C Work Phone: [facility] 05-18-2024 09:29-0400 Diastolic blood pressure 82 mm[Hg] Giuseppe Milleram 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-C Work Phone: [facility] 05-18-2024 09:29-0400 Heart rate 79 /min Giuseppe Shana 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-C Work Phone: [facility] 05-18-2024 09:29-0400 Respiratory rate 16 /min Giuseppe Shana 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-C Work Phone: [facility] 05-18-2024 09:29-0400 SaO2% (BldA) [Mass fraction] 98 % Giuseppe Shana 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-C Work Phone: [facility] 05-18-2024 09:29-0400 Systolic blood pressure 138 mm[Hg] Giuseppe Shana 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-C Work Phone: [facility] 04-05-2024 15:27-0500 Body height 158.75 cm Giuseppe Shana 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-C Work Phone: [facility] 04-05-2024 15:27-0500 Body mass index (BMI) [Ratio] 24.5 kg/m2 Giuseppe Shana 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-C Work Phone: [facility] 04-05-2024 15:27-0500 Body temperature 98.4 [degF] Giuseppe Shana 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-C Work Phone: [facility] 04-05-2024 15:27-0500 Body weight 61.68 kg Giuseppe Shana 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-C Work Phone: [facility] 04-05-2024 15:27-0500 Diastolic blood pressure 82 mm[Hg] Giuseppe Shana 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-C Work Phone: [facility] 04-05-2024 15:27-0500 Heart rate 84 /min Giuseppe Shana 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-C Work Phone: [facility] 04-05-2024 15:27-0500 Respiratory rate 15 /min Giuseppe Shana 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-C Work Phone: [facility] 04-05-2024 15:27-0500 SaO2% (BldA) [Mass fraction] 100 % Giuseppe Shana 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-C Work Phone: [facility] 04-05-2024 15:27-0500 Systolic blood pressure 120 mm[Hg] Giuseppe Ang NP-C Work Phone: [facility] 08-04-2023 08:11-0400 Body mass index (BMI) [Ratio] 24.76 kg/m2 Coretta Murrell VENEER JOINTER RETURNER.[employer]DLE [employer]CHO[employer] TECHNOLOGY TEACHER Work Phone: [facility] 08-04-2023 08:11-0400 Body temperature 98.71 [degF] Coretta Murrell VENEER JOINTER RETURNER.MIDDLE SCHOOL TECHNOLOGY TEACHER Work Phone: [facility] 08-04-2023 08:11-0400 Body weight 61.4 kg Coretta Murrell VENEER JOINTER RETURNER.MIDDLE SCHOOL TECHNOLOGY TEACHER Work Phone: [facility] 08-04-2023 08:11-0400 Diastolic blood pressure 99 mm[Hg] Coretta Murrell VENEER JOINTER RETURNER.MIDDLE SCHOOL TECHNOLOGY TEACHER Work Phone: [facility] 08-04-2023 08:11-0400 Heart rate 71 /min Coretta Murrell VENEER JOINTER RETURNER.MIDDLE SCHOOL TECHNOLOGY TEACHER Work Phone: [facility] 08-04-2023 08:11-0400 Respiratory rate 18 /min Coretta Murrell VENEER JOINTER RETURNER.MIDDLE SCHOOL TECHNOLOGY TEACHER Work Phone: [facility] 08-04-2023 08:11-0400 SaO2% (BldA) [Mass fraction] 100 % Coretta Murrell VENEER JOINTER RETURNER.MIDDLE SCHOOL TECHNOLOGY TEACHER Work Phone: [facility] 08-04-2023 08:11-0400 Systolic blood pressure 149 mm[Hg] Coretta Murrell VENEER JOINTER RETURNER.MIDDLE SCHOOL TECHNOLOGY TEACHER Work Phone: [facility] 03-11-2023 11:23-0500 Body height 157.5 cm Pacc 1 Work Phone: [facility] 03-11-2023 11:23-0500 Body temperature 99.3 [degF] Pacc 1 Work Phone: [facility] 03-11-2023 11:23-0500 Body weight 57.61 kg Pacc 1 Work Phone: [facility] 03-11-2023 11:23-0500 Diastolic blood pressure 82 mm[Hg] Pacc 1 Work Phone: [facility] 03-11-2023 11:23-0500 Heart rate 84 /min Pacc 1 Work Phone: [facility] 03-11-2023 11:23-0500 Respiratory rate 14 /min Pacc 1 Work Phone: [facility] 03-11-2023 11:23-0500 SaO2% (BldA) [Mass fraction] 100 % Pacc 1 Work Phone: [facility] 03-11-2023 11:23-0500 Systolic blood pressure 130 mm[Hg] Pacc 1 Work Phone: [facility] 01-13-2023 13:05-0500 Body height 157.5 cm Petey Kothari MD Work Phone: [facility] 01-13-2023 13:05-0500 Body weight 56.25 kg Petey Kothari MD Work Phone: [facility] 01-13-2023 13:05-0500 Respiratory rate 16 /min Petey Kothari MD Work Phone: [facility] 12-17-2022 13:26-0400 Body height 157.48 cm RYDER Chilel LPN [facility]; [facility] Work Phone: 12-17-2022 13:26-0400 Body mass index (BMI) [Ratio] 22.86 kg/m2 RYDER Chilel LPN [facility]; [facility] Work Phone: 12-17-2022 13:26-0400 Body surface area Derived from formula 1.57 m2 RYDER Chilel LPN [facility]; [facility] Work Phone: 12-17-2022 13:26-0400 Body temperature 97.9 [degF] RYDER Chilel LPN Comprehensiv e [facility]; [facility] Work Phone: Comment on above: Method: Temporal 12-17-2022 13:26-0400 Body weight 56.7 kg RYDERRAFAELA Chilel LPN [facility]; [facility] Work Phone: 12-17-2022 13:26-0400 Diastolic blood pressure 68 mm[Hg] RYDER Chilel MELY [facility]; [facility] Work Phone: Comment on above: Patient Position: Sitting; Cuff Location : Left Arm; Cuff Size: Standard 12-17-2022 13:26-0400 Heart rate 78 /min RYDER Chilel LPN [facility]; [facility] Work Phone: Comment on above: Pattern: Regular 12-17-2022 13:26-0400 Respiratory rate 18 /min RYDER Getachew BOONE Com[facility]; [facility] Work Phone: Comment on above: Pattern: Unlabored 12-17-2022 13:26-0400 SaO2% (BldA) [Mass fraction] 98 % RYDERRAFAELA Chilel LPN [facility]; [facility] Work Phone: Comment on above: Room air 12-17-2022 13:26-0400 Systolic blood pressure 100 mm[Hg] RYDER Getachew BOONE [facility]; [facility] Work Phone: Comment on above: Patient Position: Sitting; Cuff Location : Left Arm; Cuff Size: Standard 11-18-2021 19:40-0400 Body height 157.5 cm [facility] 3 Work Phone: [facility] 11-18-2021 19:40-0400 Body weight 56.7 kg [place] [facility] Work Phone: [facility] 05-29-2021 10:42-0400 Body height 157.48 cm 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-C Josey Galan 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 Work Phone: [facility] Work Phone: 05-29-2021 10:42-0400 Body height 157.48 cm 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-C Josey Galan 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 Work Phone: [facility] Work Phone: 03-20-2021 08:36-0500 Body height 157.48 [...] Body weight 55.82 kg Victorino Garcia LPN [facility] Work Phone: 05-02-2019 09:39-0400 BP Diastolic 78 mm[Hg] Victorino Garcia LPN [facility] [...] 09:39-0400 Height 157.48 cm Victorino Garcia LPN [facility] Medicine Work Phone: 05-02-2019 09:39-0400 Pulse (Heart Rate) 82 /min Victorino Garcia LPN [facility] Work Phone: Comment on above: Pattern: Regular 05-02-2019 09:39-0400 Pulse Oximetry 98 % Josey Galan [facility] Internal Medicine Work Phone: Comment on above: Room air 05-02-2019 09:39-0400 Respiratory Rate 16 /min Victorino Garcia LPN [facility] Internal Medicine Work Phone: Comment on above: Pattern: Unlabored 05-02-2019 09:39-0400 SaO2% (BldA) [Mass fraction] 98 % Victorino Garcia LPN [facility]; [facility] Work Phone: Comment on above: Room air 04-10-2019 08:00-0500 BMI (Body Mass Index) 22.14 kg/m2 Victorino Garcia LPN [facility] Work Phone: 04-10-2019 08:00-0500 Body Temperature 97.8 [degF] Victorino Garcia LPN [facility] Internal Medicine Work Phone: Comment on above: Method: Temporal 04-10-2019 08:00-0500 Body weight 54.91 kg Victorino Garcia LPN [facility] Medicine Work Phone: 04-10-2019 08:00-0500 BP Diastolic 62 mm[Hg] Victorino Garcia LPN [facility] Work Phone: Comment on above: Patient Position: Sitting; Cuff Location : Left Arm; Cuff Size: Standard 04-10-2019 08:00-0500 BP Systolic 116 mm[Hg] Victorino Garcia LPN [facility] Medicine Work Phone: Comment on above: Patient Position: Sitting; Cuff Location : Left Arm; Cuff Size: Standard 04-10-2019 08:00-0500 BSA (Body Surface Area) 1.54 m2 Victorino Garcia LPN [facility] Internal Medicine Work Phone: 04-10-2019 08:00-0500 Height 157.48 cm Victorino Garcia LPN [facility] Medicine Work Phone: 04-10-2019 08:00-0500 Pulse (Heart Rate) 68 /min Victorino Garcia LPN [facility] Work Phone: Comment on above: Pattern: Regular 04-10-2019 08:00-0500 Pulse Oximetry 98 % Josey Galan [facility] Medicine Work Phone: Comment on above: Room air 04-10-2019 08:00-0500 Respiratory Rate 16 /min Victorino Garcia IMPORT/EXPORT ANALYST [facility] Internal Medicine Work Phone: Comment on above: Pattern: Unlabored 04-10-2019 08:00-0500 SaO2% (BldA) [Mass fraction] 98 % Victorino Garcia LPN [facility]; [facility] Work Phone: Comment on above: Room air 03-20-2019 08:00-0500 BMI (Body Mass Index) 21.59 kg/m2 Victorino Garcia LPN [facility] Internal Medicine Work Phone: 03-20-2019 08:00-0500 Body Temperature 98.1 [degF] Victorino Garcia LPN [facility] Medicine Work Phone: Comment on above: Method: Temporal 03-20-2019 08:00-0500 Body weight 53.54 kg Victorino Garcia LPN [facility] Work Phone: 03-20-2019 08:00-0500 BP Diastolic 52 mm[Hg] Victorino Gracia LPN [facility] Medicine Work Phone: Comment on above: Patient Position: Sitting; Cuff Location : Left Arm; Cuff Size: Standard 03-20-2019 08:00-0500 BP Systolic 102 mm[Hg] Victorino Garcia LPN [facility] Internal Medicine Work Phone: Comment on above: Patient Position: Sitting; Cuff Location : Left Arm; Cuff Size: Standard 03-20-2019 08:00-0500 BSA (Body Surface Area) 1.53 m2 Victorino Garcia LPN [facility] Internal Medicine Work Phone: 03-20-2019 08:00-0500 Height 157.48 cm Victorino Garcia LPN [facility] Internal Medicine Work Phone: 03-20-2019 08:00-0500 Pulse (Heart Rate) 111 /min Victorino Garcia LPN [facility] Work Phone: Comment on above: Pattern: Regular 03-20-2019 08:00-0500 Pulse Oximetry 98 % Josey Galan [facility] Internal Medicine Work Phone: Comment on above: Room air 03-20-2019 08:00-0500 Respiratory Rate 16 /min Victorino Garcia LPN [facility] Medicine Work Phone: Comment on above: Pattern: Unlabored 03-20-2019 08:00-0500 SaO2% (BldA) [Mass fraction] 98 % Victorino Garcia LPN [facility]; [facility] Work Phone: Comment on above: Room air 03-06-2019 09:52-0500 BMI (Body Mass Index) 22.69 kg/m2 Vicotrino Garcia LPN [facility] Medicine Work Phone: 03-06-2019 09:52-0500 Body Temperature 98.2 [degF] Victorino Garcia LPN [facility] Internal Medicine Work Phone: Comment on above: Method: Temporal 03-06-2019 09:52-0500 Body weight 56.27 kg Victorino Garcia LPN [facility] Work Phone: 03-06-2019 09:52-0500 BP Diastolic 90 mm[Hg] Victorino Garcia LPN [facility] Medicine Work Phone: Comment [...] Garcia LPN [facility] Work Phone: 03-06-2019 09:52-0500 Height 157.48 cm Victorino Garcia LPN [facility] Work Phone: 03-06-2019 09:52-0500 Pulse (Heart Rate) 93 /min Victorino Garcia LPN [facility] Work Phone: Comment on above: Pattern: Regular 03-06-2019 09:52-0500 Pulse Oximetry 99 % Josey Galan [facility] Work Phone: Comment on above: Room air 03-06-2019 09:52-0500 Respiratory Rate 16 /min Victorino Garcia LPN [facility] Work Phone: Comment on above: Pattern: Unlabored 03-06-2019 09:52-0500 SaO2% (BldA) [Mass fraction] 99 % Victorino Garcia LPN [facility]; [facility] Work Phone: Comment on above: Room air Encounters Encounter Date Encounter Type Care Provider Facility Start: 12-18-2024 End: 12-18-2024 ambulatory GARETH AMBROSE MD Facility:[facility] Start: 12-18-2024 End: 12-18-2024 Patient encounter procedure GARETH AMBROSE MD [facility] Start: 12-10-2024 Encounter for genera l adult medical examination without abnormal findings [facility] Start: 11-21-2024 End: 11-21-2024 ambulatory [facility] Facility:[facility] Start: 11-16-2024 End: 11-16-[address] Carmen Jang MD -[facility] Work Phone: Start: 11-16-2024 End: 11-16-[address] Carmen Jang MD Work Phone: -[facility] Start: 11-02-2024 End: 11-02-[address] Carmen Jang MD Work Phone: -[facility] Start: 11-02-2024 End: 11-02-[address] Gareth Ambrose MD -[facility] Work Phone: Start: 11-02-2024 End: 11-02-2024 Patient encounter procedure Ely ALEGRIA -[facility] Work Phone: Start: 11-02-2024 End: 11-02-[address] Carmen Jang MD Work Phone: [facility] Start: 11-02-2024 End: 11-02-2024 ambulatory Gareth Ambrose Facility:[facility] Start: 10-23-2024 End: 10-23-2024 ambulatory CARMEN JANG MD Facility:[facility] Start: 10-23-2024 End: 10-23-2024 Patient encounter procedure GARETH AMBROSE MD [facility] Start: 10-17-2024 ambulatory [facility] Facility:[facility] Start: 10-17-[address] Dg drew MD -Physical Therapy Work Phone: Start: 09-14-2024 Encounter for other preprocedural examination [facility] Start: 09-13-2024 End: 09-13-[address] Lennox Kincaid MD -[facility] Start: 09-13-2024 End: 09-13-2024 ambulatory Giuseppe SMITHC Work Phone: -[facility] Start: 09-05-[address] Dg drew MD -Physical Therapy Work Phone: Start: 08-16-2024 End: 08-16-[address] Lennox Kincaid MD -[facility] Start: 08-16-2024 End: 08-16-2024 ambulatory Giuseppe RANDALL Work Phone: -[facility] Start: 08-01-2024 Non-patient / Non-visit Ely ALEGRIA -[facility] Start: 07-31-2024 Non-patient / Non-visit Dr. Oneil Moses DO -[facility] Work Phone: Start: 07-31-2024 End: 08-01-2024 ambulatory [facility] Facility:[facility] Start: 07-31-2024 End: 08-01-2024 Evaluation and management of inpatient Dr. Dg Díaz MD -[facility] 3 Work Phone: Start: 07-31-2024 End: 08-01-2024 observation encounter Giuseppe RANDALL Work Phone: [facility] Work Phone: Start: 07-31-2024 ambulatory [facility] Facility:[facility] Start: 07-31-2024 Non-patient / Non-visit Dr. Dg Díaz MD -[facility] Start: 07-27-2024 End: 07-27-[address] Dg Díaz MD -[facility] Work Phone: Start: 07-27-2024 End: 07-27-2024 ambulatory Giuseppe RANDALL Work Phone: [facility] Work Phone: Start: 07-19-2024 End: 07-19-2024 ambulatory [facility] Facility:[facility] Start: 07-19-2024 End: 07-19-2024 Non-patient / Non-visit Dr. Mini Dailey MD -[facility] Work Phone: Start: 07-11-2024 Encounter for other preprocedural examination Jeff Parra [facility] Start: 07-11-[address] Carmen Jang MD Work Phone: [facility] Start: 07-11-2024 End: 07-11-2024 Patient encounter procedure Jeff ALEGRIA -[facility] Work Phone: Start: 07-11-2024 End: 07-11-2024 Patient encounter status Jeff ALEGRIA [facility] Start: 07-11-2024 End: 07-11-2024 ambulatory Giuseppe Ang 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-C Work Phone: [facility] Work Phone: Start: 06-22-2024 End: 06-22-[address] Dg Díaz MD -[facility] Work Phone: Start: 06-22-2024 End: 06-22-2024 ambulatory Giuseppe Ang [facility] Start: 06-04-2024 End: 09-06-2024 Telephone encounter Jose J Bird [facility] Comment on above: Release Of Medical R ecords (Imaging) Start: 06-01-2024 End: 06-01-2024 ambulatory Giuseppe Ang Facility:[facility] Start: 06-01-2024 End: 06-01-[address] Narayan Connelly MD -[facility] Work Phone: Start: 05-25-2024 End: 05-25-2024 ambulatory GIUSEPPE MILLERAM Facility:[facility] Start: 05-25-2024 End: 05-25-2024 Subsequent hospital visit by physician Mri Radio [facility] (I-Stat/1.5t) Work Phone: Radiology Comment on above: Demyelinating diseas e of central nervous system (HCC) [G37.9] Start: 05-18-2024 Patient encounter status Giuseppe Ang 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-C Work Phone: [facility] Start: 05-18-2024 End: 05-18-[address] Carmen Jang MD -[facility] Work Phone: Start: 05-18-2024 End: 05-18-[address] Carmen Jang MD [facility] Start: 05-18-2024 End: 05-18-2024 ambulatory Giuseppe [place] Facility:[facility] Start: 05-11-2024 End: 05-11-2024 ambulatory Ramón Orellana MD Work Phone: Neurology Comment on above: Abnormal finding on MRI of brain (Primary Dx); Demyelinating disease of central nervous system (HCC); Generalized weakness; Migratory pain; Nonintractable headache, unspecified chronicity pattern, unspecified headache type Start: 05-11-2024 End: 05-11-2024 Telemedicine consultation with patient Ramón Orellana MD Work Phone: Neurology Start: 05-10-2024 End: 05-11-2024 Telephone encounter Ramón Orellana MD Work Phone: [facility] Start: 05-07-2024 End: 05-07-2024 ambulatory Giuseppe Shana 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-C Work Phone: [facility] Work Phone: Start: 05-07-2024 End: 05-07-[address] Narayan Connelly MD -[facility] Work Phone: Start: 05-07-2024 End: 05-07-2024 ambulatory Giuseppe Shana Facility:[facility] Start: 04-05-2024 End: 04-05-[address] Narayan Connelly MD -[facility] Work Phone: Start: 04-05-2024 End: 04-05-2024 ambulatory Giuseppe [place] Facility:[facility] Start: 09-19-2023 ambulatory Parker Leiva APRNRadhaMIDDLE SCHOOL TECHNOLOGY TEACHER Work Phone: [facility] Comment on above: Still pain Start: 08-04-2023 ambulatory Petey damian MD Work Phone: [facility] Comment on above: Recurring pain Start: 08-04-2023 Telephone encounter Laney cooper PA-C Work Phone: Orthopedics Start: 08-04-2023 End: 08-04-2023 Patient encounter procedure Laney Stuart PA-C Work Phone: Orthopedics Comment on above: Acute pain of left sanam caldwell Start: 08-04-2023 End: 08-04-2023 Subsequent hospital visit by physician Xr [facility] Jen Work Phone: Radiology Comment on above: Acute pain of left s paulette [M25.512] Start: 08-04-2023 End: 08-04-2023 Patient encounter procedure Coretta Murrell VENEER JOINTER RETURNER.MIDDLE SCHOOL TECHNOLOGY TEACHER Work Phone: [facility] Comment on above: Acute pain of left sanam caldwell (Primary Dx) Start: 07-04-2023 ambulatory Parker Leiva VENEER JOINTER RETURNER.MIDDLE SCHOOL TECHNOLOGY TEACHER Work Phone: [facility] Comment on above: MRI Start: 07-04-2023 E-mail encounter fro m caregiver Parker Leiva VENEER JOINTER RETURNER.MIDDLE SCHOOL TECHNOLOGY TEACHER Work Phone: [facility] Start: 07-04-2023 End: 07-04-2023 Subsequent hospital visit by physician Mri Radio [facility] (I-Stat/1.5t) Work Phone: Radiology Comment on above: Spinal stenosis of c ervical region [M48.02] Start: 06-20-2023 End: 06-20-2023 ambulatory June Parsons SKIN CARE INSTRUCTOR Work Phone: [facility] Comment on above: S/P cervical spinal fusion (Primary Dx) Start: 06-17-2023 End: 06-17-2023 Subsequent hospital visit by physician Xr [facility] Jen Mob Work Phone: Radiology Comment on above: Acute cervical radic ulopathy [M54.12] Start: 06-14-2023 End: 06-14-2023 ambulatory Coretta Zaragoza PT [facility] Comment on above: S/P cervical spinal fusion (Primary Dx) Start: 06-12-2023 ambulatory Parker Leiva VENEER JOINTER RETURNER.MIDDLE SCHOOL TECHNOLOGY TEACHER Work Phone: [facility] Start: 06-12-2023 Follow-up encounter Parker Lynn margarito VENEER JOINTER RETURNER.MIDDLE SCHOOL TECHNOLOGY TEACHER Work Phone: [facility] Comment on above: Neck pain follow up Start: 06-07-2023 End: 06-07-2023 ambulatory Coretta Zaragoza PT Jen [facility] Physical Therapy Comment on above: S/P cervical spinal fusion (Primary Dx) Start: 06-06-2023 ambulatory Petey damian MD Work Phone: [facility] Comment on above: Neck pain returned Start: 05-20-2023 Telephone encounter Petey Kothari MD Work Phone: [facility] Start: 05-20-2023 End: 05-20-2023 ambulatory Petey Kothari MD Work Phone: [facility] Comment on above: S/P cervical spinal fusion (Primary Dx) Start: 05-20-2023 End: 05-20-2023 Telemedicine consultation with patient Petey Kothari MD Work Phone: [facility] Start: 04-22-2023 End: 04-22-2023 ambulatory Parker Leiav VENEER JOINTER RETURNER.MIDDLE SCHOOL TECHNOLOGY TEACHER Work Phone: [facility] Comment on above: S/P cervical spinal fusion; Acute postoperative pain Start: 04-22-2023 End: 04-22-2023 Telemedicine consultation with patient Parker Leiva VENEER JOINTER RETURNER.MIDDLE SCHOOL TECHNOLOGY TEACHER Work Phone: [facility] Start: 04-12-2023 ambulatory Petey damian MD Work Phone: [facility] Comment on above: Kam paperwork re quest Start: 04-04-2023 Telephone encounter Petey Kothari MD Work Phone: [facility] Comment on above: Transition Of Care Start: 03-31-2023 Admission to [facility] Petey Kothari MD Work Phone: [facility] Comment on above: Sore throat and swol ye after surgery Start: 03-31-2023 ambulatory Petey damian MD Work Phone: [facility] Start: 03-22-2023 End: 03-22-2023 ambulatory Nurse Spine Sea Provider Work Phone: [facility] Comment on above: Preop Education Clas s Start: 03-22-2023 End: 03-22-2023 Preprocedural examination done Nurse Spine Sea Provider Work Phone: [facility] Start: 03-11-2023 End: 03-11-2023 [facility] Start: 03-11-2023 End: 03-11-2023 ambulatory [facility] 1 Work Phone: Pre Anesthesia Comment on above: Pre-operative examin ation (Primary Dx); Migraine, unspecified, without mention of intractable migraine without mention of status migrainosus; Insomnia, unspecified type; Former smoker Start: 03-11-2023 End: 03-11-2023 Preprocedural examination done [facility] 1 Work Phone: [facility] Work Phone: Start: 01-14-2023 End: 01-14-2023 ambulatory 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-Yajaira Ang Work Phone: [facility] Work Phone: Start: 01-14-2023 End: 01-14-2023 Patient encounter procedure TONIA Ang Work Phone: [facility] Work Phone: Start: 01-14-2023 Telephone encounter Petey Kothari MD Work Phone: Neurology Comment on above: Schedule Surgery Start: 01-13-2023 End: 01-13-2023 Patient encounter procedure Petey Kothari MD Work Phone: [facility] Comment on above: Herniated nucleus pu lposus, C6-7 (Primary Dx); History of neck surgery; Left cervical radiculopathy Start: 12-31-2022 End: 12-31-2022 ambulatory 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-Yajaira Ang Work Phone: [facility] Work Phone: Start: 12-31-2022 End: 12-31-2022 Patient encounter procedure 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-Yajaira Ang Work Phone: [facility]-Ultrasound, H Work Phone: Start: 12-24-2022 End: 12-24-2022 Patient encounter procedure 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-Yajaira Giuseppe Shana Work Phone: [facility] Start: 12-17-2022 End: 12-17-2022 Office outpatient visit 25 minutes Josey Angelia [facility] Internal Medicine Start: 10-27-2022 Registered Recurring 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-Yajaira Ang Work Phone: [facility]-Physical Therapy Work Phone: Start: 03-03-2022 ambulatory Dave Sepulveda MD Work Phone: [facility] Start: 03-03-2022 Follow-up encounter Dave blake [...] Start: 11-25-2021 End: 11-25-2021 ambulatory DAVE SEPULVEDA Facility:[facility] Start: 11-22-2021 ambulatory Sarah Vetovit z PA-C Work Phone: Orthopaedics Comment on above: FMLA paperwork for A john Mario Start: 11-18-2021 End: 11-18-2021 Admission to [facility] 3 Work Phone: [facility] Start: 11-18-2021 End: 11-18-2021 ambulatory Pac 3 Work Phone: Pre Anesthesia Comment on above: Pre-op evaluation (P rimary Dx) Start: 11-18-2021 End: 11-18-2021 Preprocedural examination done Pacc 3 Work Phone: Pre Anesthesia Start: 11-16-2021 [...] ambulatory Sarah Vetovit z PA-C Work Phone: [facility] Start: 10-30-2021 Follow-up encounter Sarah Vet ovitz PA-C Work Phone: Orthopaedics Comment on above: Ultrasound results a nd follow up Start: 10-29-2021 End: 10-29-2021 Subsequent hospital visit by physician [address] Radiology Comment on above: Ulnar [...] Start: 08-21-2021 End: 08-21-2021 Patient encounter procedure 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-C Josey Galan NP Work Phone: [facility] Start: 07-31-2021 End: 07-31-2021 Patient encounter procedure 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-C Josey Galan 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 Work Phone: [facility] Start: 07-24-2021 End: 07-24-2021 Patient encounter procedure 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-C Josey Galan 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 Work Phone: [facility] Start: 06-19-2021 End: 06-19-2021 Patient encounter procedure 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-C Josey Galan 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 Work Phone: [facility] Start: 06-15-2021 Non-patient / Non-visit 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-C Josey Galan 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 Work Phone: [facility] Start: 06-15-2021 End: 06-15-2021 Patient encounter procedure 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-C Josye Galan 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 Work Phone: [facility]-Pulmonary Services/Neurology Start: 05-29-2021 End: 05-29-2021 Patient encounter procedure 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-C Josey Galan 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 Work Phone: [facility] Start: 04-01-2021 End: 04-01-2021 Patient encounter procedure 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-C Josey Galan 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 Work Phone: [facility]-Laboratory, Specimen Start: 03-20-2021 End: 03-20-2021 Office outpatient visit 15 minutes Josey Galan [employer]DLE SCHO[employer] TECHNOLOGY TEACHER Work Phone: [facility] Start: 03-13-2021 End: 03-13-2021 Annotation/Addendum Josey Galan [employer] SCHO[employer] TECHNOLOGY TEACHER Work Phone: [facility] Start: 03-13-2021 End: 03-13-2021 Patient encounter procedure 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-C Josey Galan 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 Work Phone: [facility] Start: 03-06-2021 End: 03-06-2021 Office outpatient visit 15 minutes Josey Monrealdiana [employer]DLE SCHOOL TECHNOLOGY TEACHER Work Phone: [facility] Start: 02-20-2021 End: 02-20-2021 Office outpatient visit 15 minutes Josey Galan [employer]DLE SCHOOL TECHNOLOGY TEACHER Work Phone: [facility] Start: 02-20-2021 Review Josey Galna [employer]DLE SCHO[employer] TECHNOLOGY TEACHER Work Phone: [facility] Start: 05-28-2020 End: 05-28-2020 Annotation/Addendum Josey Galan [facility] Start: 05-02-2019 End: 05-02-2019 Office outpatient visit 10 minutes Josey Monrealdiana [facility] Start: 04-20-2019 End: 04-20-2019 Annotation/Addendum Josey Galan [facility] Start: 04-12-2019 End: 04-12-2019 Patient encounter procedure Josey Galan [facility] Start: 04-11-2019 End: 04-11-2019 Annotation/Addendum Josey Galan [facility] Start: 04-10-2019 End: 04-10-2019 Office outpatient visit 15 minutes Josey Galan [facility] Start: 03-20-2019 End: 03-20-2019 Office outpatient visit 25 minutes Josey Monrealdiana [facility] Start: 03-06-2019 End: 03-06-2019 Office outpatient new 45 minutes Josey Galan [facility] Procedures Date Procedure Procedure Detail Performing Clinician Start: 11-02-2024 MRI of brain with contrast Dr. Carmen Jang MD Work Phone: Start: 11-02-2024 X-ray of cervical spine Dr. Carmen Jang MD Work Phone: Start: 09-13-2024 X-ray of cervical spine Dr. Carmen Jang MD Work Phone: Start: 08-16-2024 X-ray of cervical spine Giuseppe Ang NP-C Work Phone: Start: 08-01-2024 Estimated creatinine clearance Giuseppe Ang NP-C Work Phone: Start: 08-01-2024 X-ray of cervical spine Giuseppe Ang NP-C Work Phone: Start: 07-31-2024 Surgical procedure on cervical spine Giuseppe Ang NP-C Work Phone: Start: 07-31-2024 Fluoroscopic guidance Giuseppe RANDALL Work Phone: Start: 07-31-2024 X-ray of cervical spine Giuseppe RANDALL Work Phone: Start: 07-19-2024 Hepatitis A virus antibody, total measurement Giuseppe RANDALL Work Phone: Comment on above: Comment: The HAV total antibody assay de tects both IgG andIgM but does not differentiate between them. A negativeresult suggests susceptibility to infection. A positiveresult could be due to vaccination, previously resolvedinfection or active infection. Testing for HAV IgM shouldbe performed if active HAV infection is suspected. [facility] profiles that will automatically reflex positive HAVtotal antibody results to IgM (e.g., panel #[id number] HAVAntibody w/ Rfx).Performed at: [address] [id number] Director: Keon Oakley PhD, Phone: [phone] Start: 07-19-2024 Hepatitis C antibody measurement Giuseppe RANDALL Work Phone: Comment on above: Reactive: Presumptive evidence of antibo dies to HCV. Follow CDC recommendations for supplemental testing.Non-Reactive: Antibodies to HCV were not detected; does not exclude the possibility of exposure to HCVReactive Results are presumptive evidence of antibodies to HCV. Follow CDC recommendations for supplemental testing.Order confirmation testing: HCV Quant by PCR testing - HCVPCR #[id number] Non Reactive: < 0.8 Equivocal: >/= 0.8 to < 1.0 Reactive: >/= 1.0The CDC requires that a reactive/equivocal HCV antibody result be sent out for confirmation. HCV Quant by PCR testing. Start: 07-19-2024 Methicillin resistant Staphylococcus aureus screening test Giuseppe RANDALL Work Phone: Start: 06-22-2024 X-ray of cervical spine Giuseppe RANDALL Work Phone: Start: 05-25-2024 Mri spinal canal thoracic w/o & w/contr mackenziel Ramón Orellana MD Work Phone: Start: 05-07-2024 MRI of brain without contrast Giuseppe Ang 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-C Work Phone: Start: 05-07-2024 MRI of cervical spine Giuseppe Ang 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-C Work Phone: Start: 08-04-2023 Radex shoulder complete minimum 2 views Coretta Murrell VENEER JOINTER RETURNER.[employer]DLE SCHOOL TECHNOLOGY TEACHER Work Phone: Start: 07-04-2023 Mri spinal canal cervical w/o contrast mackenziel Parker Leiva VENEER JOINTER RETURNER.MIDDLE SCHOOL TECHNOLOGY TEACHER Work Phone: Start: 01-14-2023 CT cervical spine without contrast 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-C Giuseppe Ang Work Phone: Start: 12-31-2022 US scan of thyroid 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-C Giuseppe Ang Work Phone: Start: 12-24-2022 X-ray of cervical spine 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-C Giuseppe Ang Work Phone: Start: 10-15-2022 End: 10-15-2022 Inital Evaluation (1) - PT Procedure Note: See Note; NOTES: [facility] [address] [place] [address]. [address] [place] [address] / REHABILITATION SERVICES INITIAL EVALUATION MR#: [id number] Acct: [id number] Name: YESENIA MARTIN Rep #: [id number] : 1980 41 From: Becky Yañez PT, Cert. MDT Referring Dr.: Dr. Brian Rueda DO Status: RE G R Insurance: [facility] SELF PAY INSURANCE Patient's Visit Information Visit Information Visit Information: YESENIA MARTIN is a 41 year old F [...] AND STRENGTHENING. HEP INSTRUCTION. Subjective Subjective: Work/Leisure: [facility]. 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 Disability: NO Present symptoms: CORDELL NECK PAIN. [...] UNCHARNGED FROM 06/16/20. RECENT NECK X-RAY AT [facility] SHOWING SIGNIFICANT DEGENERATIVE CHANGES AT ADJACENT LEVELS [...] MVMTS ARE GUARDED WELL. 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 [...] and motor function, To increase tolerance to activity/condition/positio n and To improve ability of physical actions for home/community/work/leisur e Cryotherapy (ice pack, ice massage): Yes Thermo therapy (hot pack): Yes For the Purpose of:: To decrease pain and To decrease swelling/inflammation Text: Thank you for the opportunity to evaluate your patient. For Medicare and Medicare HMO plans, please review the plan of care and approve it. It will need to be FAXED BACK to us at [phone] for Medicare purposes. For Medicare only, by signing this I certify the plan of care. Please let me know if there are questions or concerns regarding this plan of care. Physician Signature: Date: <Electronically signed by Becky Yañez PT, Cert. T> 10/15/22 5336 CC: TONIA Ang; Dr. Brian Rueda DO JUDSON Signed Josey Galan Start: 10-29-2021 Us lmtd joint/oth nonvasc xtr strux r-t w/img Sarah Wesley PAElíasC Work Phone: Start: 08-21-2021 MRI of cervical spine 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-C Josey Galan 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 Work Phone: Start: 08-21-2021 End: 08-21-2021 Spine Cervical (Routine) Procedure Note: See Note; NOTES: [facility] Imaging Services [address] [place] [address] Spine Cervical (Routine) MR#: [id number] Acct: [id number] Name: YESENIA MARTIN Rep #: [id number] : 1980 F 40 From: Petey Barr MD PCP: TONIA St Status: REG CLI Study: Spine Cervical (Routine) Date of Exam: Exam# [id number] Ordering Dr: Alex Coronado DO STUDY: MRI [...] IMPRESSION: No change from 06/16/2020. Electronically Signed: Petey Barr MD at 15:39 EDT , CC: 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-C Josey Galan; Dr. Alex Coronado DO Pantry Attendant: Signed Josey Galan Start: 07-31-2021 Plain x-ray of elbow 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-C Josey Galan NP Work Phone: Start: 07-31-2021 End: 07-31-2021 Elbow min 3 Views Procedure Note: See Note; NOTES: [facility] Radiology [address] [place] [address] Elbow min 3 Views MR#: [id number] Acct: [id number] Name: YESENIA MARTIN Rep #: [id number] : 1980 F 40 From: Sharan anderson MD PCP: TONIA St Status: DEP AMB Study: Elbow min 3 Views Date of Exam: 07/31/21 Exam# [id number] Ordering Dr: Narayan Santiago DO STUDY: X-RAY [...] Beach MD at 15:06 EDT , CC: TONIA Galan; Dr. Narayan Santiago DO Pantry Attendant: Signed Josey Galan Start: 07-31-2021 End: 07-31-2021 Orthopedic Visit Report Procedure Note: See Note; NOTES: [facility] [address] [place] [address] [address] [place] [address] OFFICE VISIT Date of Service: 07/31/21 MR#: [id number] Acct: [id number] Name: YESENIA MARTIN Rep #: [id number] : 1980 Provider: Dr. Narayan friedman DO Age/Sex: 40/F Location: [facility] Status: Signed Intake Intake Visit Reasons: LEFT [...] decisions made by me, Dr. Narayan Santiago, DO 07/31/21 0759. YESENIA MARTIN is a 40 year old F [...] 30 caps 0RF Plan Details Additional Comments: Yesenia has a history of cervical spine disc [...] DO Cosigner Signature: Date (if applicable) CC: Josey Galan Start: 07-24-2021 End: 07-24-2021 Orthopedic Visit Report Procedure Note: See Note; NOTES: [facility] [address] [place] [address] OFFICE VISIT Date of Service: 07/24/21 MR#: [id number] Acct: [id number] Name: YESENIA MARTIN Rep #: [id number] : 1980 Provider: Dr. Alex birmingham DO Age/Sex: 40/F Location: [facility] Status: Signed Intake Intake Visit Reasons: cervical spine Allergies No Known Allergies Allergy (Verified 05/29/21 10:42) Medications NK 06/19/21 [History Confirmed 07/24/21] PFSH Medical History (Updated 06/19/21 @ 12:21 [...] made by me, Dr. Alex Coronado DO 07/24/21 1134. YESENIA MARTIN is a 40 year old F [...] of ulnar nerve, left upper limb 07/24/21 1325 <Electronically signed by Alex Coronado DO> Date Alex Coronado DO Cosigner Signature: Date (if applicable) CC: 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-C Josey Galan; MD Josey Sheth Start: 06-19-2021 End: 06-19-2021 Orthopedic Visit Report Procedure Note: See Note; NOTES: [facility] Orthopa[facility]ics Sports Medicine [address] [place] [address] OFFICE VISIT Date of Service: 06/19/21 MR#: [id number] Acct: [id number] Name: YESENIA MARTIN Rep #: [id number] : 1980 Provider: Dr. Alex birmingham DO Age/Sex: 40/F Location: [facility] Status: Signed Intake Intake Visit Reasons: CERVICAL [...] made by me, Dr. Alex Coronado, DO 06/19/21 3327. YESENIA MARTIN is a 40 year old F here today for EMG review. Pt denies any changes since last appointment. Yesenia returns after her EMG nerve conduction study [...] DO Cosigner Signature: Date (if applicable) CC: 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Gatito Galan; MD Josey Sheth Start: 06-15-2021 End: 06-15-2021 NCS and/or EMG Patient Procedure Note: See Note; NOTES: [facility] Pulmonary Services/Neurology [address] [place] [address] MR#: [id number] Acct: [id number] Name: YESENIA MARTIN Rep #: [id number] : 1980 40 From: Damon Garcia DO Referring Dr: Status: REG CL Location: [facility] Date: 06/15/21 Sex: F C NCS and/or [...] Multi Select Codes Neurology Neurology Interp Codes: 45103-40 [facility] test done w/n test comp (interp) and 48268-02 [facility] cnd test 7- 8 studies (interp) 06/15/21 1511 <Electronically signed by Damon Garcia DO> Date Damon Garcia DO CC: 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-Yajaira Galan; Dr. Maco Garcia DO; Dr. Alex Coronado DO Date Dictated: 06/15/21 1506 Date Transcribed: 06/15/21 150 Pantry Attendant: CG Signed Josey Galan Start: 05-29-2021 X-ray of cervical spine 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-C Josey Galan 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 Work Phone: Start: 05-29-2021 End: 05-29-2021 Cerv Spine 2 or 3 Views Procedure Note: See Note; NOTES: [facility] Radiology [address] [place] [address] Cerv Spine 2 or 3 Views MR#: [id number] Acct: [id number] Name: MARIOYESENIA FISHER Frederic Rep #: [id number] : 1980 F 40 From: Petey Barr MD PCP: TONIA St Status: DEP AMB Study: Cerv Spine 2 or 3 Views Date of Exam: 05/29/21 Exam# [id number] Ordering Dr: Alex Coronado DO STUDY: X-RAY [...] at C5/C6 with anatomic alignment. Electronically Signed: Petey Barr MD at 16:55 EDT , CC: TONIA Galan; Dr. Alex Coronado DO Pantry Attendant: Signed Josey Galan Start: 05-29-2021 End: 05-29-2021 Orthopedic Visit Report Procedure Note: See Note; NOTES: [facility] Orthopaedics Sports Medicine [address] [place] [address] OFFICE VISIT Date of Service: 05/29/21 MR#: [id number] Acct: [id number] Name: YESENIA MARTIN Rep #: [id number] : 1980 Provider: Dr. Alex birmingham DO Age/Sex: 40/F Location: [facility] Status: Signed Intake Vital Signs 05/29/21 10:42 Height 5 ft 2 in Intake Visit Reasons: CERVICAL SPINE Allergies No Known Allergies Allergy (Verified 05/29/21 10:42) [facility] Medical History (Updated 05/29/21 @ 11:40 by [...] made by me, Dr. Alex Coronado DO 05/29/21 1039. YESENIA MARTIN is a 40 year old F NEW Pt here today for neck pain and second opinion. Pt states she had surgery on C5 and C6 in 06/2019 at [facility]. Pt states since she healed from the surgery she is back to having pain on left side with pain, numbness, tingling, and burning that radiates down her lateral arm all the way to her ring finger and pinky. Pt denies any previous injections. Yesenia is a delightful young lady 40 years [...] DO Cosigner Signature: Date (if applicable) CC: 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-C Josey Galan Start: 03-13-2021 End: 03-13-2021 Thyroid Comments: See Note; NOTES: [facility] Imaging Services [address] [place] [address] Thyroid MR#: [id number] Acct: [id number] Name: YESENIA MARTIN Rep #: [id number] : 1980 F 40 From: Sharan anderson MD PCP: TONIA St Status: REG CLI Study: Thyroid Date of Exam: 03/13/21 Exam# [id number] Ordering Dr: Josey Galan NP STUDY: THYROID ULTRASOUND REASON FOR [...] Signed: Sharan Beach MD at 11:16 EST , CC: TONIA Galan Pantry Attendant: Signed Josey Galan [employer]CHO[employer] TECHNOLOGY TEACHER Work Phone: Start: 03-13-2021 Thyroid 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-Yajaira Galan 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 Work Phone: Start: 06-16-2020 End: 06-16-2020 Spine Cervical (Routine) Comments: See Note; NOTES: [facility] Imaging Services [address] [place] [address] Spine Cervical (Routine) MR#: [id number] Acct: [id number] Name: YESENIA MARTIN Rep #: [id number] : 1980 F 39 From: Viktor Tabares MD PCP: TONIA St Status: REG CLI Study: Spine Cervical (Routine) Date of Exam: Exam# [id number] Ordering Dr: Sujey Armijo NP 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-C STUDY: MRI CERVICAL SPINE WITHOUT CONTRAST REASON [...] support , CC: TONIA Armijo; TONIA Galan Pantry Attendant: Signed Josey Galan [facility] Work Phone: Start: 04-17-2019 End: 04-17-2019 Spine Cervical (Routine) Comments: See Note; NOTES: [facility] Imaging Services [address] [place] [address] Spine Cervical (Routine) MR#: [id number] Acct: [id number] Name: YESENIA MARTIN Rep #: [id number] : 1980 F 38 From: Petey Barr MD PCP: Josey Ciesa, 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-C Status: REG CLI Study: Spine Cervical (Routine) Date of Exam: 04/17/19 Exam# [id number] Ordering Dr: Josey Galan STUDY: MRI CERVICAL SPINE WITHOUT CONTRAST [...] degenerative disc disease at C5/C6. Electronically Signed: Petey Barr MD at 14:05 EST Tel , Service support , CC: TONIA Galan Pantry Attendant: Signed Josey Galan Work Phone: Start: 04-11-2019 End: 04-11-2019 NCS and/or EMG Patient Comments: See Note; NOTES: [facility] Pulmonary Services/Neurology [address] [place] [address] MR#: [id number] Acct: [id number] Name: YESENIA MARTIN Rep #: [id number] : 1980 38 From: Mark Hill MD Referring Dr: Josey Galan 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-C Status: REG CLI Location: [facility] Date: 04/11/19 Sex: F C NCS and/or EMG Patient Report Ordering Doctor: Josey Galan DATE OF SERVICE: 04/11/19 Yesenia Martin is a 38-year-old female who presents [...] Hill MD> Date Mark Hill MD CC: 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-C Josey Galan; Mark Hill MD Date Dictated: 04/11/191419 Date Transcribed: 04/11/191419 Pantry Attendant: MARITA Signed Josey Galan Start: 03-23-2019 End: 03-23-2019 Inital Evaluation (1) - PT Comments: See Note; NOTES: [facility] Physical Therapy [address] [place] [address] / REHABILITATION SERVICES INITIAL EVALUATION MR#: [id number] Acct: [id number] Name: YESENIA MARTIN Rep #: [id number] : 1980 38 From: Nyla Haywood PT, Cert. MDT, OCS Referring Dr.: TONIA Galan Status: REG R [facility] Patient's Visit Information YESENIA MARTIN is a 38 year old F referred to Physical Therapy by TONIA St with a diagnosis of CERVICAL RADICULOPATHY. Date of Evaluation: 03/21/19 Physical Therapist: Nyla Haywood, PT, Cert MDT, OCS - Visit Plan [...] affects sleeping. C/O BE ,denies tinnnutus/nausea. Aggraveting yawning,flexion,sitting,justus b demands working on computer.Alleviating factors rest heat. [...] pain ER left shoulder. MMT: grossly 4/5. 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 CERVICAL ROM: flexion min loss,extension [...] to perform ADL's, To increase tolerance to activity/condition/positio n, To improve ability of physical actions for home/community/work/leisur e, To improve health of tissue, To decrease [...] to perform ADL's, To increase tolerance to activity/condition/positio n, To improve ability of physical actions for home/community/work/leisur e, To improve health of tissue, To decrease [...] to be FAXED BACK to us at [phone] for Medicare purposes. For Medicare only, by signing this I certify the plan of care. Please let me know if there are questions or concerns regarding this plan of care. Physician Signature: Date: <Electronically signed by Nyla Haywood PT, Cert. T, OCS> 03/23/19 0815 CC: TONIA Galan [place] Signed Josey Galan Start: 03-06-2019 End: 03-07-2019 Cerv Spine 2 or 3 Views Comments: See Note; NOTES: [facility] Imaging Services [address] [place] [address] Cerv Spine 2 or 3 Views MR#: [id number] Acct: [id number] Name: YESENIA MARTIN Rep #: [id number] : 1980 F 38 From: Gladis Tyler MD PCP: Care Physician, No Primary Status: REG CLI Study: Cerv Spine 2 or 3 Views Date of Exam: 03/06/19 Exam# [id number] Ordering Dr: Josey Galan HISTORY: NECK AND LEFT SHOULDER PAIN TECHNIQUE: [...] EST Tel , Service support , CC: TONIA Galan; No Primary Care Physician Pantry Attendant: Signed Josey Galan Work Phone: 3 eye surgeries Victorino Garcia 3 eye surgeries Victorino Garcia IMPORT/EXPORT ANALYST 3 eye surgeries Mallory Shadi ACCESS ANALYST 3 eye surgeries Victorino Garcia IMPORT/EXPORT ANALYST 3 eye surgeries RYDER serrato IMPORT/EXPORT ANALYST D&C Victorino Garcia Comment on above: For MC in 2008 D&C Victorino Garcia LP N Comment on above: For MC in 2008 D&C Mallory Gravsera ACCESS ANALYST Comment on above: For MC in 2008 D&C Victorino Garcia LP N Comment on above: For MC in 2008 D&C RYDER Chilel LPN Comment on above: For MC in 2008 Gallbladder Surgery Victorino marshall Comment on above: No post-op complications. about 4 or 5 y ears ago H/O: hysterectomy Hx of hysterectomy 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-C Josey Galan 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 Work Phone: Comment on above: 2011 H/O: surgery Hx of dilation a nd curettage 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-C Josey Galan 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 Work Phone: Comment on above: 2008 H/O: surgery History of neck surgery Corbin Kothari MD Work Phone: H/O: surgery H/O neck surgery Giuseppe james 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-C Work Phone: Comment on above: 04/2019 C5 & C6 disc replacement & 03/2023 C6 and C7 fusion. Surgeries had been performed at [facility]. H/O: surgery H/O neck surgery Dr. Narayan Connelly MD History of cholecystectomy S/P cholecystectomy Victorino Garcia IMPORT/EXPORT ANALYST History of cholecystectomy S/P cholecystectomy Victorion Garcia LPN History of cholecystectomy S/P cholecystectomy Mallory Álvarez ACCESS ANALYST History of cholecystectomy S/P cholecystectomy Victorino Garcia IMPORT/EXPORT ANALYST History of cholecystectomy Hx of cholecystectomy 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-C Josey Galan 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 Work Phone: Comment on above: 2012 History of cholecystectomy S/P cholecystectomy RYDER Chilel LPN History of cholecystectomy S/P cholecystectomy Josey Galan History of tonsillectomy Hx of tonsillect senia 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-C Josey Galan 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 Work Phone: Comment on above: 1987 Hysterectomy Victorino Garcia Comment on above: No post-op complications. 8 years ago Hysterectomy Victorion Garcia LP N Comment on above: No post-op complications. 8 years ago Hysterectomy Mallory Gravius ACCESS ANALYST Comment on above: No post-op complications. 8 years ago Hysterectomy Victorino Garcia LP N Comment on above: No post-op complications. 8 years ago Hysterectomy RYDER Chilel LPN Comment on above: No post-op complications. 8 years ago Operation on gallbladder Arcadio Garcia Comment on above: No post-op complications. about 4 or 5 y ears ago Operation on gallbladder Arcadio barnard Jose LOPEZN Comment on above: No post-op complications. about 4 or 5 y ears ago Operation on gallbladder Zach min Shadius ACCESS ANALYST Comment on above: No post-op complications. about 4 or 5 y ears ago Operation on gallbladder Arcadio barnard Jose LOPEZN Comment on above: No post-op complications. about 4 or 5 y ears ago Operation on gallbladder CASSANDRA CAROLE Chilel LPN Comment on above: No post-op complications. about 4 or 5 y ears ago Tonsillectomy Victorino Garcia Tonsillectomy Victorino Garcia L PN Tonsillectomy Mallory Shadius ACCESS ANALYST Tonsillectomy Victorino Garcia L PN Tonsillectomy RYDER Chilel LPN Plan of Treatment Date Care Activity Detail Author Start: 11-16-2024 Vitamin D, 25-hydroxy measurement [facility] Start: 11-16-2024 [facility] Start: 10-15-2024 Influenza vaccination Influenza Vaccine (#1) [facility] Start: 09-24-2024 End: 09-24-2024 Patient encounter procedure 09/24/2024 2:15 PM EDT Office Visit Neurology [address] [place] [address] Tish Hernandez PA-C [address] [place] [address] MS (Multiple Sclerosis) Neurology Comment on above: MS (Multiple Sclerosis) Start: 09-13-2024 X-ray of cervical spine Cerv Spine 2 or 3 Views [facility] Start: 09-13-2024 XR Cervical spine 2 or 3 Views [facility] Start: 08-16-2024 X-ray of cervical spine Cerv Spine 2 or 3 Views [facility] Start: 08-16-2024 XR Cervical spine 2 or 3 Views [facility] Start: 08-01-2024 Catheterization of vein [facility] Start: 08-01-2024 Patient discharge [facility] Start: 07-31-2024 Application of intermittent pneumatic compression device [facility] Start: 07-31-2024 Following clinical pathway protocol [facility] Start: 07-31-2024 Application of device [facility] Start: 07-31-2024 Assessment of risk of venous thromboembolism [facility] Start: 07-31-2024 Consultation [facility] Start: 07-31-2024 Following clinical pathway protocol [facility] Start: 07-31-2024 Incentive spirometry [facility] Start: 07-31-2024 Introduction of urinary catheter [facility] Start: 07-31-2024 Measuring intake and output [facility] Start: 07-31-2024 Neurovascular assessment [facility] Start: 07-31-2024 Oxygen therapy [facility] Start: 07-31-2024 Patient education [facility] Start: 07-31-2024 Provision of activity privileges [facility] Start: 07-31-2024 Referral to occupational therapist [facility] Start: 07-31-2024 Taking patient vital signs [facility] Start: 07-31-2024 End: 07-31-2024 [facility] Start: 07-31-2024 Admission procedure [facility] Start: 07-31-2024 Referral for physical therapy [facility] Start: 07-31-2024 Referral to service [facility] Start: 07-31-2024 Anesthesia cervical spine & cord nos ANESTH SPINE CORD SURGERY [facility] Start: 07-31-2024 Surgical procedure on cervical spine TOT DISC ARTHRP 1NTRSPC CRV [facility] Start: 07-31-2024 Tot disc arthrp art disc ant appro 1 ntrspc crv TOT DISC ARTHRP 1NTRSPC CRV [facility] Start: 07-19-2024 Electrocardiographic procedure [facility] Start: 07-11-2024 Evaluation of diagnostic study results [facility] Start: 06-22-2024 Patient referral [employer] Work Phone: Start: 06-08-2024 End: 06-08-2024 Patient encounter procedure 06/08/2024 1:30 PM EDT Office Visit Neurology [address] [place] [address] Ramón Orellana MD [address] [place] [address] Follow up after mri Neurology Comment on above: Follow up after mri Start: 06-05-2024 End: 06-05-2024 Patient encounter procedure 06/05/2024 9:45 AM EDT OT/PT/Speech Visit [facility] [address] [place] [address] Coretta Zaragoza PT CONSULT TO PHYSICAL THERAPY [facility] Comment on above: CONSULT TO PHYSICAL THERAPY Start: 06-01-2024 Patient referral [facility] Work Phone: Start: 05-25-2024 End: 05-25-2024 Patient encounter procedure 05/25/2024 9:00 AM EDT Appointment Radiology [address] [place] [address] MRI THORACIC SPINE WO/W IVCON Radiology Comment on above: MRI THORACIC SPINE WO/W IVCON Start: 10-16-2023 Covid-19 Vaccine ( season) Covid-19 Vaccine ( season) [facility] Start: 10-16-2023 Covid-19 Vaccine ( season) Covid-19 Vaccine ( season) [facility] Start: 10-16-2023 Influenza vaccination [facility] Start: 08-04-2023 End: 08-04-2023 Patient encounter procedure 08/04/2023 1:40 PM EDT Office Visit Orthopedics [address] [place] [address] Laney Stuart PA-C [address] [place] [address] Acute pain of left shoulder Orthopedics Comment on above: Acute pain of left shoulder Start: 07-13-2023 End: 07-13-2023 Admission to same day surgery center 07/13/2023 3:00 PM EDT OT/PT/Speech Visit [facility] [address] [place] [address] Coretta Zaragoza, PT Strengthen neck after surgery [facility] Comment on above: Strengthen neck after surgery Start: 07-08-2023 End: 07-08-2023 Admission to same day surgery center 07/08/2023 2:00 PM EDT OT/PT/Speech Visit [facility] [address] [place] [address] OCoretta Morales, PT Strengthen neck after surgery [facility] Comment on above: Strengthen neck after surgery Start: 07-04-2023 End: 07-04-2023 Admission to same day surgery center 07/04/2023 3:30 PM EDT OT/PT/Speech Visit [facility] [address] [place] [address] June Parsons, [employer]IN CARE INSTRUCTOR [address] [place] [address] Strengthen neck after surgery [facility] Comment on above: Strengthen neck after surgery Start: 07-01-2023 End: 07-01-2023 Admission to same day surgery center 07/01/2023 11:45 AM EDT OT/PT/Speech Visit [facility] [address] [place] [address] June Parsons, SKIN CARE INSTRUCTOR [address] [place] [address] Strengthen neck after surgery [facility] Comment on above: Strengthen neck after surgery Start: 06-27-2023 End: 06-27-2023 Admission to same day surgery center 06/27/2023 1:15 PM EDT OT/PT/Speech Visit [facility] [address] [place] [address] Coretta Zaragoza, PT Strengthen neck after surgery [facility] Comment on above: Strengthen neck after surgery Start: 06-24-2023 End: 06-24-2023 Admission to same day surgery center 06/24/2023 2:45 PM EDT OT/PT/Speech Visit [facility] [address] [place] [address] June Parsons, SKIN CARE INSTRUCTOR [address] [place] [address] Strengthen neck after surgery [facility] Comment on above: Strengthen neck after surgery Start: 06-20-2023 End: 06-20-2023 Admission to same day surgery center 06/20/2023 3:30 PM EDT OT/PT/Speech Visit [facility] [address] [place] [address] June Parsons, SKIN CARE INSTRUCTOR [address] [place] [address] Strengthen neck after surgery [facility] Comment on above: Strengthen neck after surgery Start: 06-14-2023 End: 06-14-2023 Admission to same day surgery center 06/14/2023 4:30 PM EDT OT/PT/Speech Visit [facility] [address] [place] [address] O'Coretta Abdul, PT Strengthen neck after surgery [facility] Comment on above: Strengthen neck after surgery Start: 06-07-2023 End: 06-07-2023 Admission to same day surgery center 06/07/2023 3:45 PM EDT OT/PT/Speech Visit [facility] [address] [place] [address] O'Coretta Abdul, PT Strengthen neck after surgery [facility] Comment on above: Strengthen neck after surgery Start: 12-17-2022 Procedure Education Eprescribed prescriptions (G8553) [facility] Work Phone: Start: 12-17-2022 Provider Instructions for Treatment [facility] Work Phone: Start: 12-17-2022 Urinalysis qual/semiquant except immunoassays URINALYSIS (26552) [facility] Work Phone: Start: 12-17-2022 Lipid panel LIPID PANEL (14468) [facility] Work Phone: Start: 12-17-2022 Assay of thyroid stimulating hormone tsh TSH (THYROID STIMULATING HORMONE) (61125) [facility]; [facility] Work Phone: Start: 12-17-2022 Comprehensive metabolic panel METABOLIC PANEL, COMPREHENSIVE (17318) [facility]; [facility] Work Phone: Start: 12-17-2022 Blood count complete auto&auto difrntl wbc CBC, PLATELETS & AUT DIFF (34382) [facility]; [facility] Work Phone: Start: 10-15-2022 Covid-19 Vaccine ( season) Covid-19 Vaccine ( season) [facility] Start: 10-15-2022 Influenza vaccination Influenza Vaccine (#1) [facility] Start: 10-15-2021 Influenza vaccination INFLUENZA (#1) [facility] Start: 06-19-2021 Patient referral [facility] Work Phone: Start: 04-21-2021 COVID-19 VACCINE (3 - Booster for Pfizer series) COVID-19 VACCINE (3 - Booster for Pfizer series) [facility] Start: 03-20-2021 Procedure Education Eprescribed prescriptions (G8553) [facility] Work Phone: Start: 03-20-2021 Provider Instructions for Treatment Follow up in 4 months front desk worker to make follow up [facility] Work Phone: Start: 03-06-2021 Procedure Education Eprescribed prescriptions (G8553) [facility]; [facility] Work Phone: Start: 03-06-2021 Provider Instructions for Treatment Follow up in 2 weeks virtual [facility]; [facility] Work Phone: Start: 02-20-2021 Procedure Education Eprescribed prescriptions (G8553) [facility]; [facility] Work Phone: Start: 02-20-2021 Provider Instructions for Treatment Follow up in 1 week in office front line supervisor to make apt [facility]; [facility] Work Phone: Start: 02-20-2021 Rheumatoid factor quantitative RHEUMATOID FACTOR-QUANT (69552) test code [id number] [facility]; [facility] Work Phone: Comment on above: Feb 23 2021 Start: 02-20-2021 Extractable nuclear antigen antibody any method [facility]; [facility] Work Phone: Comment on above: Feb 23 2021 Feb 232021Feb 23, 2021 Start: 02-20-2021 Cyanocobalamin vitamin b-12 VITAMIN B12 AND FOLATES (91872) [facility]; [facility] Work Phone: Comment on above: Feb 23 2021 Start: 02-20-2021 25 hydroxy includes fractions if performed CALCIFEDIOL (03065) [facility]; [facility] Work Phone: Comment on above: Feb 23 2021 Start: 02-20-2021 Assay of thyroid stimulating hormone tsh TSH (THYROID STIMULATING HORMONE) (41213) [facility]; [facility] Work Phone: Comment on above: Feb 23 2021 Start: 02-20-2021 Blood count complete auto&auto difrntl wbc CBC, Platelets & Auto Diff (78241) [facility]; [facility] Work Phone: Comment on above: Feb 232021 Start: 02-20-2021 Comprehensive metabolic panel Metabolic Panel, Comprehensive (47063) [facility]; [facility] Work Phone: Comment on above: Feb 23 2021 Start: 01-16-2021 COVID-19 VACCINE (3 - Booster for Pfizer series) COVID-19 VACCINE (3 - Booster for Pfizer series) [facility] Start: 2020 Mammography [facility] Start: 2020 Screening for malignant neoplasm of breast Mammogram Screening [facility] Start: 05-02-2019 Procedure Education Eprescribed prescriptions (G8553) [facility] Work Phone: Start: 05-02-2019 Provider Instructions for Treatment [facility] Work Phone: Start: 04-10-2019 Procedure Education Eprescribed prescriptions (G8553) [facility] Work Phone: Start: 04-10-2019 Provider Instructions for Treatment Follow up in 2 weeks [facility] Work Phone: Start: 03-20-2019 Procedure Education Eprescribed prescriptions (G8553) [facility] Work Phone: Start: 03-20-2019 Provider Instructions for Treatment [facility] Work Phone: Start: 03-06-2019 Patient Education Celiac Disease and the Gluten-Free Diet: diet [facility] Work Phone: Start: 03-06-2019 Procedure Education Eprescribed prescriptions (G8553) [facility] Work Phone: Start: 03-06-2019 Provider Instructions for Treatment Follow up in 2 weeks [facility] Work Phone: Start: 03-06-2019 Iaad ia hpylori stool HELICO PYLORI, STOOL, INFCT ANTIGEN (02079) [facility] Work Phone: Start: 03-06-2019 Iaad ia clostridium difficile toxin Clostridium difficile Toxin A+B, EIA (53701) [facility] Work Phone: Start: 12-04-1999 Hepatitis B Vaccine (1 of 3 - 19+ 3-dose series) Hepatitis B Vaccine (1 of 3 - 19+ 3-dose series) [facility] Start: 12-04-1999 [facility] Start: 1998 HEPATITIS C SCREENING HEPATITIS C SCREENING [facility] Start: 1998 Hepatitis C screening Hepatitis C Screening [facility] Start: 1998 HIV SCREENING HIV SCREENING [facility] Start: 1998 HIV screening HIV Screening [facility] Start: 1980 HEPATITIS B (1 of 3 - 3-dose series) HEPATITIS B (1 of 3 - 3-dose series) [facility] Start: 1980 Hepatitis B Vaccine (1 of 3 - 3-dose series) Hepatitis B Vaccine (1 of 3 - 3-dose series) [facility] CBC W Auto Different ial panel - Blood [facility] Comprehensive metabo lic 2000 panel - Serum or Plasma [facility] End: 03-11-2024 ECG COMPLETE ECG COMPLETE ECG Routine Pre-operative examination 1 Occurrences starting 03/11/2023 until 03/11/2024 [facility] Work Phone: Comment on above: 1 Occurrences starting 03/11/2023 until 03/11/2024 Electrocardiographic procedure [facility] Lipid 1996 panel - S yuliya or Plasma [facility] MG Breast - bilatera l Screening [facility] MG Breast - bilatera l Screening [facility] End: 06-10-2025 MR Thoracic spine WO and W contrast IV MRI THORACIC SPINE WO/W IVCON Radiology Routine Demyelinating disease of central nervous system (HCC) 1 Occurrences starting 05/11/2024 until 06/10/2025 [facility] Work Phone: Comment on above: 1 Occurrences starting 05/11/2024 until 06/10/2025 Patient Education Cervical Disk Surg Dc [facility] Work Phone: Patient referral [facility] Work Phone: End: 10-28-2022 Us lmtd joint/oth nonvasc xtr strux r-t w/img US ELBOW LEFT Radiology Routine Ulnar neuropathy at elbow of left upper extremity 1 Occurrences starting 09/28/2021 until 10/28/2022 [facility] Work Phone: Comment on above: 1 Occurrences starting 09/28/2021 until 10/28/2022 XR CERV OTHER 4V AP/LAT/FLX/EXT XR CERV OTHER 4V AP/LAT/FLX/EXT Radiology Routine Acute cervical radiculopathy S/P cervical spinal fusion 06/17/2023 4:33 PM EDT [facility] Work Phone: End: 06-18-2024 XR Cervical spine AP and Lateral XR CERV GENERAL 2V AP/LAT Radiology Routine S/P cervical spinal fusion 1 Occurrences starting 05/20/2023 until 06/18/2024 [facility] Work Phone: Comment on above: 1 Occurrences starting 05/20/2023 until 06/18/2024 [facility] Work Phone: [facility] Work Phone: [facility] Work Phone: [facility] Work Phone: [facility] Work Phone: [facility] Work Phone: [facility] Immunizations Immunization Date Immunization Notes Care Provider [facility] 11-21-2020 Covid (Pfizer) Dr. Carmen Jang MD Work Phone: [facility] 10-24-2020 Covid (Pfizer) Dr. Carmen Jang MD Work Phone: [facility] Payers Date Payer Category Payer Self-pay [id number] 2024 Unknown [id number] 2022 Private Health Insurance [id number] 2017 Unknown 2017 Unknown [id number] 2014 Unknown [id number] 1980 Unknown [id number] 2.16. [id number] 1980 Unknown [id number] 2.16. [id number] Private Health Insurance [id number] Unknown [id number] 2.16.8 40.1.155816.3.579.2.462 Unknown [id number] 2.16.8 40.1.314802.3.579.2.462 Unknown [id number] 2.16.8 40.1.195707.3.579.2.462 Unknown [id number] 2.16.8 40.1.177645.3.579.2.462 Unknown [id number] 2.16.8 40.1.648976.3.579.2.462 Unknown [id number] 2.16.8 40.1.885694.3.579.2.462 Unknown [id number] 2.16.8 40.1.001070.3.579.2.462 Unknown [id number] 2.16.8 40.1.898554.3.579.2.462 Unknown [id number] 2.16.8 40.1.996182.3.579.2.462 Unknown [id number] 2.16.8 40.1.593679.3.579.2.462 Unknown [id number] 2.16.8 40.1.351834.3.579.2.462 Unknown [id number] 2.16.8 40.1.754814.3.579.2.462 Unknown [id number] 2.16.8 40.1.129100.3.579.2.462 Unknown [id number] 2.16.8 40.1.431939.3.579.2.462 Unknown [id number] 2.16.8 40.1.834467.3.579.2.462 Unknown [id number] 2.16.8 40.1.524403.3.579.2.462 Unknown [id number] 2.16.8 40.1.570793.3.579.2.462 Unknown [id number] 2.16.8 40.1.619353.3.579.2.462 Unknown [id number] 2.16.8 40.1.782196.3.579.2.462 Unknown [id number] 2.16.8 40.1.128638.3.579.2.462 Unknown [id number] 2.16.8 40.1.862794.3.579.2.462 Unknown [id number] 2.16.8 40.1.425937.3.579.2.462 Unknown [id number] 2.16.8 40.1.296498.3.579.2.462 Social History Date Type Detail Facility Alcohol Use: Alcohol Use: [facility] Work Phone: Start: 11-18-2021 End: 01-13-2023 Caffeine Use Caffeine Use [facility] Work Phone: Comment on above: [...] Start: 06-19-2021 End: 07-31-2021 Tobacco smoking status [facility] Unknown if ever smoked [facility] Start: 1980 Sex Assigned At Female [facility] Start: 09-14-2007 End: 09-13-2024 Tobacco smoking status NHIS Ex-smoker [facility] Work Phone: Start: 07-15-2003 End: 02-14-2017 History of tobacco use Current smoker [facility] Work Phone: Start: 07-15-2003 End: 02-14-2017 History of tobacco use Cigarette Smoker [facility] Work Phone: Start: 09-14-2007 End: 11-18-2021 Tobacco use and exposure Smokeless tobacco non-user [facility] Work Phone: Start: 03-23-2021 End: 05-11-2024 Alcohol intake Current drinker of alcohol (finding) [facility] Start: 03-22-2008 History SDOH Alcohol Comment rare,NOT WHILE [facility] Start: 09-14-2007 Tobacco Comment Smoked occassi onally for 3 yrs [facility] Start: 1980 Sex Assigned At Not on file [facility] Start: 09-08-2021 End: 01-04-2022 Exposure to SARS-CoV-2 (event) Not sure [facility] Work Phone: Start: 11-16-2021 Tobacco Comment Smoked occassi onally for 3 yrs. [facility] Start: 11-18-2021 History SDOH Alcohol Comment 1/month [facility] Start: 11-18-2021 Tobacco Comment Smoked occassi onally for 5 yrs. [facility] Start: 01-13-2023 End: 03-29-2023 Tobacco use panel [facility] Adult Depression Screening Assessment 0 [facility] Has the LCO Creation, gas, oil, or water [employer] threatened to shut off services in your home in past 12Mo No [facility] Work Phone: (I/We) worried whether (my/our) food would run out before (I/we) got money to buy more. Never true [facility] Work Phone: Start: 05-14-2024 End: 10-23-2024 Sex Female (finding) [facility] Tobacco smoking status [facility] NEGATED: Highlighted row Not [facility] Medical Equipment Procedure Code Equipment Code Equipment Origin al Text Equipment Identifier Dates Arthroplasty, spine, cervical Cervical total intervertebral disc prosthesis, modular [id number] FDA Start: 07-31-2024 Arthroplasty, spine, cervical Ligation clip, metallic ()[id number] FDA Start: 07-31-2024 Arthroplasty, spine, cervical Gelatin haemostatic agent [id number] FDA Start: 07-31-2024 Spacer Avs 4d 7m m Spinal Bone Plug - [id number] Start: 03-28-2023 Gisel Cervical P late 1 Level 20mm [id number] Start: 03-28-2023 Screw Bn 4mm 14m m Gisel Spnl - [id number] Start: 03-28-2023 Goals Date Patient Goal Desired Activity /State Functional Status Date Assessment Result Facility 08-01-2024 Functional status Patient Activity Chair [facility] Work Phone: 08-01-2024 Functional status Activity Abili ty Independent;Standby Assist [facility] Work Phone: 07-10-2014 Are you deaf, or do you have serious difficulty hearing No 07/10/2014 1:33 PM EDT Mishel Garcia Cma No [facility] 07-10-2014 Are you blind, or do you have serious difficulty seeing, even when wearing glasses No 07/10/2014 1:33 PM EDT Mishel Garcia Cma No [facility] 07-10-2014 Do you have serious difficulty walking or climbing stairs No 07/10/2014 1:33 PM EDT Mishel Garcia Cma No [facility] 07-10-2014 Do you have difficul ty dressing or bathing No 07/10/2014 1:33 PM EDT Mishel Garcia Cma No [facility] 07-10-2014 Because of a physica l, mental, or emotional condition, do you have difficulty doing errands alone such as visiting a physician's office or shopping No 07/10/2014 1:33 PM EDT Mishel Garcia Cma No [facility] Mental Status Date Assessment Result Facility 08-01-2024 Cognitive function Level Of Cons ciousness Awake;Alert;Appropriate;Fol lows Commands [facility] Work Phone: 07-31-2024 Cognitive function Voice/Name [facility] Work Phone: 07-10-2014 Because of a physica l, mental, or emotional condition, do you have serious difficulty concentrating, remembering, or making decisions No 07/10/2014 1:33 PM EDT Radha ZayasDimitriMishelnickolas Roach [facility] Clinical Notes 07-16-2008 to 11-02-2024 Note Date & Type Note Facility 11-02-2024 Progress note [facility] 11-02-2024 Radiology Diagnostic study note [facility] Imaging Services [address] [place] [address] Cerv Spine 2 or 3 Views MR#: [id number] Acct: [id number] Name: YESENIA MARTIN Rep #: [id number] : 1980 F 43 From: Tala Avendano MD PCP: Dr. Carmen Jang MD Status: D EP AMB Study:Cerv Spine 2 or 3 Views Date of Exam: 11/02/24 Exam# [id number] Ordering Dr: Mario Salas PROCEDURE: CERV SPINE 2 OR 3 VIEWS 11/02/2024 REASON FOR EXAM: POST OP TECHNIQUE: Procedure Code: RADSPCL Modality: DX Procedure: CERV SPINE 2 OR 3 VIEWS COMPARISON: 09/13/2024 and 08/01/2024 FINDINGS: PRIOR SURGERY/HARDWARE: Metallic disc prostheses within the C4-C5 and C5-C6 intervertebral disc spaces showing stable alignment. Prior ACDF with fusion hardware and interbody fusion device at C6-C7. No evidence of hardware failure or loosening. BONES: No fracture or focal osseous lesion. Anatomic spinal alignment. DISC/DEGENERATIVE CHANGES: Disc spaces are preserved. SOFT TISSUES: No acute abnormality seen. RAD/Cerv Spine 2 or 3 Views IMPRESSION: Postoperative changes without signs of complication. Reading Location: [id number] CC: RAJI Jung; Dr. Carmen Jang MD ~ Pantry Attendant: Signed [facility] 08-01-2024 Progress note [facility] 08-01-2024 Progress note Note Date/Time August 01, 2024 12:30pm [facility] Medical Records Department [address] [place] [address] Progress Note - Orthopedic 08/01/24 0753 MR#: [id number] Acct: [id number] Name: YESENIA MARTIN Rep #:[id number] : 1980 43 From: Ely ALEGRIA PCP: Dr. Carmen Jang MD Status:A DM ROSITA Location: MS3 [id number] Subjective Subjective Postop day 1 C4-5 disc replacement. Patient is doing relatively well postoperatively with her pain well-managed. The patient was seen at bedside today. The patient's voice is hoarse and she says she has noticed some slight issues with swallowing. The patient has been up to the bathroom however she hasnot yet walked in the halls. Therapy to see later today. Seen with Dr. Díaz. Objective Data Objective Data Vital Signs: Vital Signs Temp Pulse Resp BP Pulse Ox O2 Del Method O2 Flow Rate 98.1 F 65 16 123/69 H 99 Room Air 4 08/01/24 05:02 08/01/24 05:02 08/01/24 05:02 08/01/24 05:02 08/01/24 05:02 08/01/24 05:02 07/31/24 16:30 Oxygen Flow Rate (L/min) 4 Oxygen Delivery Method Room Air Weight: 132 lb 4.438 oz Body Mass Index (BMI) 24.2 Intake & Output: Intake and Output for Last 24 Hours 07/30/24 07/31/24 08/01/24 23:59 23:59 23:59 Intake Total 1560 / 1560 510 / 510 Output Total 5 / 5 Balance 1555 / 1555 510 / 510 Lab / Micro Data 08/01/24 05:08 08/01/24 05:08 Labs: Laboratory Results - last 24 hr 08/01/24 05:08: WBC 10.6, RBC 4.13 L, Hgb 11.9 L, Hct 35.5 L, MCV 86.0, MCH 28.8, MCHC 33.5, RDW Std Deviation 38.8, RDW Coeff of Roseanne 12.5, Plt Count 241, MPV 10.2, Sodium 137, Potassium 4.2, Chloride 105, Carbon Dioxide 20.4 L, Anion Gap 11, BUN 7, Creatinine 0.59 L, Estim Creat Clear Calc 97.24, Est GFR (MDRD) Non-Af 115, BUN/Creatinine Ratio 12.4, Glucose 121 H, Calcium 8.4 Micro: Microbiology 07/19/24 14:16 Swab (Method) Nasal Screen MRSA/MSSA - Final Radiography Diagnostic Testing: Radiology Impression Cervical Spine X-Ray 07/31/24 09:20 IMPRESSION: Intraoperative fluoroscopic images. Unremarkable disc spacer at C4-C5 level. Reading Location: [place] [address] Cervical Spine X-Ray 08/01/24 04:25 IMPRESSION: Unremarkable cervical fusion metallic hardware at C5-C6 and C6-C7 levels. Grade 1 anterolisthesis of C3 on C4. Grade 1 anterolisthesis of C4 on C5. Disc spacer is noted in the interim at C4-C5 in the interim. Disclaimer: Reading Location: [place] [address] Physical Exam Narrative Neurological exam of the upper extremities shows 5X5 power. Normal sensation across all dermatomes. Drain was removed, surgical gauze and Tegaderm showed very mild discharge this was removed. New gauze and Tegaderm was applied over the incision. Patient's cervical collar was removed for the drain, which was then reapplied. Const alert, oriented x3 and no apparent distress Assessment & Plan Assessment/Plan (1) S/P cervical disc replacement: PLAN: Plan Postop day 1 C4-5 disc replacement. Patient has walked with therapy who is cleared her for home discharge. Obtained reviewed x-rays today which show hardware and bone graft in good position. Reviewed restrictions no bending, lifting, twisting until 3 months postop. Discussed with the patient that she can start to come out of the collar over thenext week and just wear the collar as needed for comfort. Educated and reviewed on the use of the incentive spirometer. Home-going meds include Vicodin, meloxicam, methocarbamol, senna, Zofran. OARRSreviewed. She will follow-up in the clinic in 2 weeks. Patient is in agreement. 08/01/24 1230 <Electronically signed by Ely ALEGRIA> Cosigner Signature (if applicable): CC: ~ Signed [facility] Work Phone: 1(637) 619-390006-18-2025 Radiology Diagnostic study note [facility] Imaging Services [address] [place], [place] [address] Cerv Spine 2 or 3 Views MR#: [id number] Acct: [id number] Name: YESENIA MARTIN Rep #: [id number] : 1980 F 43 From: Rakesh [place] MD PCP: Dr. Carmen Jang MD Status: A DM ROSITA Study:Cerv Spine 2 or 3 Views Date of Exam: 07/31/24 Exam# [id number] Ordering Dr: Inge Díaz MD PROCEDURE: CERV SPINE 2 OR 3 VIEWS 07/31/2024 REASON FOR EXAM: CERVICAL DISC REPLACEMENT C4-5 TECHNIQUE: CERV SPINE 2 OR 3 VIEWS Fluoroscopy time 15 seconds. Radiation dose 1.24 mGy. 5 spots. COMPARISON: 08/01/2024. FINDINGS: Intraoperative fluoroscopic images. Disc spacer has been inserted in the interim in good position at C4-C5 level. RAD/Cerv Spine 2 or 3 Views IMPRESSION: Intraoperative fluoroscopic images. Unremarkable disc spacer at C4-C5 level. Reading Location: [facility] [facility] [address] CC: Dr. Dg Díaz MD; Dr. Carmen Jang MD ~ Pantry Attendant: Signed [facility]06-18-2025 Radiology Diagnostic study note [facility] [facility] [address] [place], [place] [address] Cerv Spine 2 or 3 Views MR#: [id number] Acct: [id number] Name: YESENIA MARTIN Rep #: [id number] : 1980 F 43 From: Rakesh Adams MD PCP: Dr. Carmen Jang MD Status: A DM ROSITA Study:Cerv Spine 2 or 3 Views Date of Exam: 08/01/24 Exam# [id number] Ordering Dr: Mario Salas PROCEDURE: CERV SPINE 2 OR 3 VIEWS 08/01/2024 REASON FOR EXAM: S/P CERVICAL DISC REPLACEMENT TECHNIQUE: CERV SPINE 2 OR 3 VIEWS COMPARISON: 06/22/2024. FINDINGS: Unremarkable cervical fusion metallic hardware at C5-C6 and C6-C7 levels. Grade 1 anterolisthesis of C3 on C4. Grade 1 anterolisthesis of C4 on C5. Disc spacer is noted in the interim at C4-C5 in the interim. There are mild diffuse spondylotic changes. Findings are demonstrated to by diffuse disc space narrowing, osteophyte formation and degenerative endplate sclerosis. There is diffuse facet joint arthropathy with secondary bilateral neural foramina narrowing. No fracture or dislocation is seen. No aggressive lytic or blastic bony lesion is noted. RAD/Cerv Spine 2 or 3 Views IMPRESSION: Unremarkable cervical fusion metallic hardware at C5-C6 and C6-C7 levels. Grade 1 anterolisthesis of C3 on C4. Grade 1 anterolisthesis of C4 on C5. Disc spacer is noted in the interim at C4-C5 in the interim. Disclaimer: Reading Location: [place] [address] CC: RAJI Jung; Dr. Carmen Jang MD ~ Pantry Attendant: Signed [facility]06-18-2025 Consult note Author Oneil [facility] Note Date/Time July 31, 2024 10:3 5pm [facility] Medical Records Department [address] [place] [address] Consultation - Hospitalist 07/31/24 1737 MR#: [id number] Acct: [id number] Name: YESENIA MARTIN Rep #:[id number] : 1980 43 From: Oneil bernal DO PCP: Dr. Carmen Jang MD Status:A DM ROSITA [place] [facility] [place] Assessment & Plan Assessment/Plan (1) S/P cervical disc replacement: PLAN: Plan Patient is a 43-year-old female who presented to [facility] on 07/31/24 for planned cervical spine procedure. Medicine consulted postoperatively for medical management. 1. 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 Orthopedic surgery primary. S/p C4-[address] replacement [address] Contreras 07/31. Tolerated procedure well, no intraoperative complications. Pain control, DVT prophylaxis and further management per orthopedics. PT/OT/case management consulted. Notably patient has no other medical issues and takes no home medications, so no other needs from a medicine standpoint at this time. DVT prophylaxis: Per orthopedics Total clinical time spent by myself addressing the patient's medical issues, reviewing all the data, and collaborating with patient's care team: 25 minutes. HPI Consult Data Date of Consult: 07/31/24 HPI Narrative Reason for Consultation: Postoperative medical management HPI Narrative: YESENIA MARTIN, is a 43 F who presented to [facility] on 07/31/2024 for planned cervical spine procedure. Medicine consulted postoperatively for medical management. Patient had C4-5 cervical disc replacement with revision procedure done with Dr. Díaz today. Tolerated procedure well, no intraoperative complications noted. I saw the patient at bedside later this afternoon, and daughter present. Patient was fatigued appearing and mildly uncomfortable appearing due to neck pain and reported nausea. She did have neck brace in place. Stated she had just been given IV medication for her nausea. Has not had any vomiting yet. Stated this was her third cervical spine procedure and she did not have significant postoperative nausea after the first 2 so this is surprising to her. She was given a scopolamine patch for the nausea as well. She otherwise reports generalized neck discomfort without sharp pain. Denies any radiculopathy. Feels fatigued but denies any other acute pain or discomfort. [facility] Medical History Wears glasses Alcohol use Restless legs Multiple sclerosis Former smoker History of pain when walking Encounter to establish care Preventative health care Neuropathy Lump of right breast Home Medications ?Medication ?Instructions ?Recorded ?Last Taken ?Type acetaminophen 325 mg tablet 325 mg PO ONCE PRN pain 07/29/24 History (Tylenol) Allergy/AdvReac Type Severity Reaction Status Date / Time cortisone Allergy Intermediate Rash Verified 07/31/24 08:46 Family History Father Diabetes Hypertension Brother Diabetes Aunt Breast cancer Mother Osteoarthritis Surgical History History of elbow surgery H/O neck surgery Hx of right breast biopsy Hx of dilation and curettage Hx of tonsillectomy Hx of eye surgery Hx of hysterectomy Hx of cholecystectomy Social History household members: spouse and children [...] do you feel safe at home: Yes ROS Constitutional Constitutional: Reports fatigue; Denies chills, fever(s) or weakness Eyes Eyes: Denies change in vision Cardiovascular Cardiovascular: Denies chest pain Respiratory/Chest Respiratory/Chest: Denies shortness of breath at rest Gastrointestinal Gastrointestinal: Reports nausea; Denies abdominal pain or vomiting Musculoskeletal Musculoskeletal: Denies arthralgias or myalgias Neurologic Neurologic: Denies focal weakness, headache(s), numbness, paresthesias or tingling Physical Exam Const alert, oriented x3, no apparent distress and average body habitus Constitutional Narrative: Younger middle-aged female, mildly fatigued appearing, mildly uncomfortable appearing due to nausea and neck pain, neck brace in place, otherwise sitting upin bed and answering questions appropriately, in no acute distress. General Appearance: cooperative HEENT normocephalic, head/scalp atraumatic, hearing grossly normal bilaterally, nasal mucous membranes and turbinates normal and moist oral mucous membranes Eyes PERRL, EOMs intact bilaterally and conjunctivae normal Neck Neck Narrative: Neck brace in place. Chest inspection of chest normal Resp normal respiratory effort, normal air movement, no use of accessory muscles and clear to auscultation bilaterally Cardio regular rate, regular rhythm, no murmurs and peripheral pulses 2+ throughout GI normal to inspection, nondistended, normoactive bowel sounds, soft to palpation,non-tender and non-distended Back/Spine normal ROM Extremity normal to inspection, full ROM and no pedal edema Skin no rashes or lesions noted Neuro no focal motor deficits and no sensory deficits noted Speech: speech normal Psych mental status grossly normal Lab / Micro Data 07/19/24 14:16 07/19/24 14:16 Charges/Coding Visit Charges Inpatient E&M: 84864 Subs Hosp L1 07/31/244 <Electronically signed by Oneil Moses DO> Cosigner Signature (if applicable): CC: Dr. Dg Díaz MD; Dr. Carmen Jang MD~ Signed [facility] Work Phone: 1(565) 223-538806-17-2025 Consult note [facility] Medical Records Department [address] [place] [address] Consultation - Hospitalist 07/31/24 1737 MR#: [id number] Acct: [id number] Name: YESENIA MARTIN Rep #:[id number] : 1980 43 From: Oneil bernal DO PCP: Dr. Carmen Jang MD Status:A DM ROSITA [place] [facility] [place] Assessment & Plan Assessment/Plan (1) S/P cervical disc replacement: PLAN: Plan Patient is a 43-year-old female who presented to [facility] on 07/31/24 for planned cervical spine procedure. Medicine consulted postoperatively for medical management. 1. 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 Orthopedic surgery primary. S/p C4-[address] replacement [address] Contreras 07/31. Tolerated procedure well, no intraoperative complications. Pain control, DVT prophylaxis and further managementper orthopedics. PT/OT/case management consulted. Notably patient has no other medical issues and takes no home medications, so no other needs from a medicine standpoint at this time. DVT prophylaxis: Per orthopedics Total clinical time spent by myself addressing the patient's medical issues, reviewing all the data, and collaborating with patient's care team: 25 minutes. HPI Consult Data Date of Consult: 07/31/24 HPI Narrative Reason for Consultation: Postoperative medical management HPI Narrative: YESENIA MARTIN, is a 43 F who presented to [facility] on 07/31/2024 for planned cervical spine procedure. Medicine consulted postoperatively for medical management. Patient had C4-5 cervical disc replacement with revision procedure done with Dr. Díaz today. Tolerated procedure well, no intraoperative complications noted. I saw the patient at bedside later this afternoon, and daughter present. Patient was fatigued appearing and mildly uncomfortable appearing due to neck pain and reported nausea. She did have neck brace in place. Stated she had just been given IV medication for her nausea. Has not had any vomiting yet. Stated this was her third cervical spine procedure and she did not have significant postoperative nausea after the first 2 so this is surprising to her. She was given a scopolamine patch for the nausea as well. She otherwise reports generalized neck discomfort without sharp pain. Denies any radiculopathy. Feels fatigued but denies any other acute pain or discomfort. [facility] Medical History Wears glasses Alcohol use Restless legs Multiple sclerosis Former smoker History of pain when walking Encounter to establish care Preventative health care Neuropathy Lump of right breast Home Medications ?Medication ?Instructions ?Recorded ?Last Taken ?Type acetaminophen 325 mg tablet 325 mg PO ONCE PRN pain 07/29/24 History (Tylenol) Allergy/AdvReac Type Severity Reaction Status Date / Time cortisone Allergy Intermediate Rash Verified 07/31/24 08:46 Family History Father Diabetes Hypertension Brother Diabetes Aunt Breast cancer Mother Osteoarthritis Surgical History History of elbow surgery H/O neck surgery Hx of right breast biopsy Hx of dilation and curettage Hx of tonsillectomy Hx of eye surgery Hx of hysterectomy Hx of cholecystectomy Social History household members: spouse and children [...] do you feel safe at home: Yes ROS Constitutional Constitutional: Reports fatigue; Denies chills, fever(s) or weakness Eyes Eyes: Denies change in vision Cardiovascular Cardiovascular: Denies chest pain Respiratory/Chest Respiratory/Chest: Denies shortness of breath at rest Gastrointestinal Gastrointestinal: Reports nausea; Denies abdominal pain or vomiting Musculoskeletal Musculoskeletal: Denies arthralgias or myalgias Neurologic Neurologic: Denies focal weakness, headache(s), numbness, paresthesias or tingling Physical Exam Const alert, oriented x3, no apparent distress and average body habitus Constitutional Narrative: Younger middle-aged female, mildly fatigued appearing, mildly uncomfortable appearing due to nauseaand neck pain, neck brace in place, otherwise sitting upin bed and answering questions appropriately, in no acute distress. General Appearance: cooperative HEENT normocephalic, head/scalp atraumatic, hearing grossly normal bilaterally, nasal mucous membranes and turbinates normal and moist oral mucous membranes Eyes PERRL, EOMs intact bilaterally and conjunctivae normal Neck Neck Narrative: Neck brace in place. Chest inspection of chest normal Resp normal respiratory effort, normal air movement, no use of accessory muscles and clear to auscultation bilaterally Cardio regular rate, regular rhythm, no murmurs and peripheral pulses 2+ throughout GI normal to inspection, nondistended, normoactive bowel sounds, soft to palpation,non-tender and non-distended Back/Spine normal ROM Extremity normal to inspection, full ROM and no pedal edema Skin no rashes or lesions noted Neuro no focal motor deficits and no sensory deficits noted Speech: speech normal Psych mental status grossly normal Lab / Micro Data 07/19/24 14:16 07/19/24 14:16 Charges/Coding Visit Charges Inpatient E&M: 15974 Subs Hosp L1 07/31/24 2235 Cosigner Signature (if applicable): CC: Dr. Dg Díaz MD; Dr. Carmen Jang MD~ Signed [facility]06-17-2025 Consult note Author Damien Marroquin [facility] Note Date/Time July 31, 2024 3:49 pm [facility] Medical Records Department [address] [place] [address] Anesthesia Postop Eval II 07/31/24 1549 MR#: [id number] Acct: [id number] Name: YESENIA MARTIN Rep #:[id number] : 1980 43 From: Damien Marroquin MD PCP: Dr. Carmen Jang MD Status:R EG SDC Y Race: C Location: [place] [address]-1 Anesthesia Postop Eval I Sum Postop Eval Completion status Anesthesia document: Postop Eval 1 completed: Yes Anesthesia Postop Eval I Summary Anesthesia Postop Eval I Summary: Anesthesia Postop Eval I: Assessment Summary Airway patent Yes 07/31/24 14:28 [email or web address] Spontaneous unlabored Yes 07/31/24 14:28 [email or web address] [email or web address] respirations Mental status Awake,Calm 07/31/24 14:28 [email or web address] [email or web address] nausea No 07/31/24 14:28 WOOL SORTER.DBAK Vomiting No 07/31/24 14:28 WOOL SORTER.DBAK Anesthesia Postop Eval I: Fluid Summary Crystalloid volume administer 1,100 07/31/24 14:28 WOOL SORTER.DBAK (ml) Colloids volume administered ( ml) Blood Product volume administered (ml) Total IV fluid infused 1,100 07/31/24 14:28 WOOL SORTER.DBAK Anesthesia Postop Eval I: Summary Notes Anesthesia Complication No 07/31/24 14:28 WOOL SORTER.DBAK Anesthesia Complication Comment: Post-operative progress note VSS see PACU notes 07/31/24 14:28 WOOL [email or web address].DBAK for details Anesthesia: Postop Eval II Evaluation Mental status: Awake Pain Level: 0 nausea: No Vomiting: No Complications Anesthesia Complication: No 07/31/24 1549 <Electronically signed by Damien Marroquin MD> Date _ Damien Marroquin MD Cosigner Signature: Date CC: ~ Signed [facility] Work Phone: 1(959) 631-122006-17-2025 Consult note Author Karson Joel [facility] Note Date/Time July 31, 2024 2:28 pm [facility] Medical Records Department [address] [place] [address] Anesthesia Postop Eval I 07/31/24 1428 MR#: [id number] Acct: [id number] Name: YESENIA MARTIN Rep #:[id number] : 1980 43 From: Karson Mazariegos WOOL SORTER PCP: Dr. Carmen Jang MD Status:Rita FELDMAN Y Race: C Location: [address] Anesthesia: Postop Eval I Current Vital Signs [...] Anesthesia document: Postop Eval 1 completed: Yes 07/31/24 1428 <Electronically signed by Karson Joel II, CRNA> Date _ Karson Joel II WOOL SORTER Cosigner Signature: Date CC: ~ Signed [facility] Work Phone: 1(207) 223-584506-17-2025 Consult note [facility] Medical Records Department [address] [place] [address] Anesthesia Postop Eval II 07/31/24 1549 MR#: [id number] Acct: [id number] Name: YESENIA MARTIN Rep #:[id number] : 1980 43 From: Damien Marroquin MD PCP: Dr. Carmen Jang MD Status:Rita [facility] Y Race: C Location: [place] [address] Anesthesia Postop Eval I Sum Postop Eval Completion status Anesthesia document: Postop Eval 1 completed: Yes Anesthesia Postop Eval I Summary Anesthesia Postop Eval I Summary: Anesthesia Postop Eval I: Assessment Summary Airway patent Yes 07/31/24 14:28 WOOL [email or web address] Spontaneous unlabored Yes 07/31/24 14:28 WOOL SORTER.DBAK respirations Mental status Awake,Calm 07/31/24 14:28 WOOL SORTER.DBAK nausea No 07/31/24 14:28 WOOL SORTER.DBAK Vomiting No 07/31/24 14:28 WOOL SORTER.DBAK Anesthesia Postop Eval I: Fluid Summary Crystalloid volume administer 1,100 07/31/24 14:28 WOOL SORTER.DBAK (ml) Colloids volume administered ( ml) Blood Product volume administered (ml) Total IV fluid infused 1,100 07/31/24 14:28 WOOL SORTER.DBAK Anesthesia Postop Eval I: Summary Notes Anesthesia Complication No 07/31/24 14:28 WOOL SORTER.DBAK Anesthesia Complication Comment: Post-operative progress note VSS see PACU notes 07/31/24 14:28 WOOL SORTER.DBAK for details Anesthesia: Postop Eval II Evaluation Mental status: Awake Pain Level: 0 nausea: No Vomiting: No Complications Anesthesia Complication: No 07/31/24 1549 > Date _ Damien Marroquin MD Cosigner Signature: Date CC: ~ Signed [facility]06-17-2025 Consult note [facility] Medical Records Department [address] [place] [address] Anesthesia Postop Eval I 07/31/24 1428 MR#: [id number] Acct: [id number] Name: YESENIA MARTIN Rep #:[id number] : 1980 43 From: Karson Joel I I WOOL SORTER PCP: Dr. Carmen Jang MD Status:R [place] [facility] Race: C Location: [place] [address] Anesthesia: Postop Eval I Current Vital Signs [...] Anesthesia document: Postop Eval 1 completed: Yes 07/31/24 1428 II WOOL SORTER> Date _ Karson Joel II WOOL SORTER Cosigner Signature: Date CC: ~ Signed [facility]06-17-2025 Procedure note [facility] Medical Records Department [address] [place] [address] Operative Report 07/31/24 1408 MR#: [id number] Acct: [id number] Name: YESENIA MARTIN Rep #:[id number] : 1980 43 From: Dg Díaz MD PCP: Dr. Carmen Jang MD Status:[facility] Location: [place] [address] Procedures Musculoskeletal 20xxx-29xxx: Other Procedure See Report Operative Report (Standard) Operative Information Date of Procedure: 07/31/24 Pre-Operative Diagnosis: C4-5 disc herniation, myeloradiculopathy, prior C5-6 disc replacement, prior C6-7 ACDF Post-Operative Diagnosis: Same Surgery/Procedure Performed: C4-5 cervical disc replacement, revision anterior approach day camp unit leader: Yes Credit Review Manager: Ely Salas Tasks completed by assistant professor of mathematics: Closing, Removing tissue, Hemostasis: Electrocautery and Retracting [...] Imtiaz and Prosthetic device Prosthetic device details: ZimVie Mobi-C cervical disc replacement prosthesis Estimated Blood Loss: 20 cc Specimen collected: No Description of surgery: Preoperative diagnosis: C4-5 disc herniation with radiculomyelopathy, prior C5- 6disc replacement, prior C6-7 ACDF Postoperative diagnosis: Same Name of procedure: C4-5 anterior cervical disc replacement, revision anterior approach - Cervical disc replacement C4-5, CPT code 88237 Attending surgeon: Dg Díaz M.D. Anesthesia: Gen. endotracheal Estimated blood loss: 20 mL Complications: None Instrumentation used: [employer] Mobi-C cervical disc replacement implants Indications: The patient is a pleasant 43-year-old lady who presented with symptoms of neck pain, progressive weakness and dexterity issues, left worse than right radicular pain. Imaging revealed C4-5 central right paracentral softdisc herniation with cord compression without cord signal changes, prior C5- 6 disc replacement, prior C6-7 ACDF. In order to halt the progression of myelopathy, patientrequested surgical intervention. All risks and benefits of the procedure were explained to the patient. The risks include but are not limited to infection, bleeding, injury to nerves and vessels, vertebral artery injury, spinal cord injury, paralysis, vocal cord paralysis, injury to esophagus, needfor further procedures, adjacent segment degeneration, heterotopic ossification, implant loosening,implant failure, DVT, pulmonary embolism, cardiopulmonary event, etc. [...] neck was then prepped and draped in theusual fashion. A final timeout was then performed. [...] fascia. Significant scarring was noticed in the preverteb ral space. C5-6 disc replacement hardware was identified and the disc above was exposed. All prevertebral layers of fascia were bluntly and to some extent sharply dissected and a Perry pin was placed into the presumed C5 body. A lateral C-arm image was used to confirm the correct level. Once this wasdone longus coli muscle was elevated on both sides at and above and below C4-5 discs. Shadow line retractors were then placed with great care to protect the esophagus. A long handle knife was then used to perform annulotomy at C4-5. Discfragments were removed with the pituitary. Perry pins were placed in C4 and C5 for disc distraction. AP view confirmed midline placement of Perry pins. Curettes were utilized to remove cartilage from the endplates. Discectomy was performed laterally up to the uncovertebral joints. Adequate decompression was performed, PLL was thinned out and resected. Foraminawere decompressed without taking down the uncovertebral processes. Once the discspace was prepared, trials of various sizes were utilized. Thorough irrigation was given. Mobi-C anterior cervical disc replacement implantof size 13 x 15 mm with 5 mm height was then placed under fluoroscopic guidance. Adequate positioning was noticed on AP and lateral views. Thorough irrigation was again given. Hemostasis was achieved with FloSeal and bipolar cautery. Imtiaz drain was placed. Closure was done with 3-0 Vicryl for the platysma and subcutaneous tissue layers and 4-0 Monocryl for the skin. Closure was done around the drain. Steri-Strips were applied and dressing was done with 4 x 4 gauze and Tegaderm. A cervical collar was then applied. The patient was then woken up from anesthesia extubated and taken to PACU in stable condition. Intraoperative neuro monitoring was performed throughout this procedure. Motor evoked potentials were run periodically. All potentials remained at baseline throughout the procedure. I was present forthe entire surgery and performed thesurgery myself. Landscape Nurseryman Ely Salas PA-C. My physician training program assistant was a vital part of this case. They were important in appropriate retraction during the case, and protection of soft tissues during the procedure.Their intimate knowledge of thecase and my steps aided in safe and expedient completion of the procedure as well as appropriate position of the patient during the surgery. They were also vital in assisting with closure under my direct supervision. Surgical Findings: See operative note Complications Complications: No 07/31/24 1425 Cosigner Signature (if applicable): CC: Dr. Dg Díaz MD; Dr. Carmen Jang MD~ Signed [facility]06-17-2025 History and physical note Author Dg Díaz [facility] Note Date/Time July 31, 2024 11:0 6am [facility] Medical Records Department [address] [place] [address] History & Physical Exam 07/31/24 1106 MR#: [id number] Acct: [id number] Name: YESENIA MARTIN Rep #:[id number] : 1980 43 From: Dg Díaz MD PCP: Dr. Carmen Jang MD Status:R [facility] Location: [place] [address] History and Physical Date of Admission: 07/31/24 MR#: [id number] Acct: [id number] Name: YESENIA MARTIN Rep #: [id number] : 1980 Provider: Dr. Dg Díaz MD Age/Sex: 43/F [place] [facility] Status: Signed Intake Vital Signs 06/22/2508:28 07/11/2510:53 Height 5 ft 2.5 in 5 ft 2 in Intake Visit Reasons: cervical spine Chief Complaint: Pre-Op Cervical Spine Accompanied by: Is patient in pain?: Yes Pain scale (1-10): 4 Allergies cortisone Allergy (Intermediate, Verified 07/27/24 13:38) Rash Medications ?Medication ?Instructions ?Recorded ?Confirmed ?Type acetaminophen 325 mg tablet 325 mg PO ONCE PRN pain 05/18/24 5 History (Tylenol) [facility] Medical History Wears glasses Alcohol [...] by me, Dr. Dg Díaz MD 07/27/24 0365. Part of today?s visit was documented by Shreya Salinas ATC, acting as scribe. YESENIA MARTIN is a 43 year old F here today for pre-op cervical disc replacementC4-5, possible removal of hardware DOS 07/31/2024. Patient rates her pain a 4/10 today. She states she has stopped taking Advil but continues to take the Tylenol. 06/22/24: YESENIA MARTIN is a 43 year old F here today for cervical spine pain. She complains of cervical spine pain that extends down in to her left shoulder. This has been going on for 15 months.She describes the pain as a sharp achy painand at times she feels a shock like sensation.She has been experiencing numbnessand tingling in both arms and both legs. [...] it increases the pain. She drops items withher hands such as her keys. She reports [...] She has an appointment in July at [facility] with a neurologist for further evaluation. [...] mild imbalance. There is hyperreflexia lower extremities. Coding Level of Care Code Off vis,est,level 4 Diagnoses Cervical myelopathy with cervical radiculopathy G95.9; M54.12 Fusion of spine, cervical region M43.22 S/P cervical disc replacement Z98.890 Time Spent (min) 35 Assessment and Plan Assessment and Plan (1) Cervical myelopathy with cervical radiculopathy: Status: Acute (2) Fusion of spine, cervical region: Status: Acute (3) S/P cervical disc replacement: Status: Acute Plan Again reviewed x-rays and MRI done previously. Imaging shows prior C5-6 disc replacement with good mobility and flexion-extension views, C6-7 ACDF with plateinstrumentation with good evidence of fusion. There is adjacent segment degeneration with a central disc herniation at C4-5 causing cord compression with cord edema. Significant artifact from the disc replacement prosthesis noticed at C5-6 level. Again explained to her imaging findings in detail. There is a disc herniation at C4-C5 with pressure on the spinal cord. She has developed myelopathy with radiculopathy. We discussed that a CT myelogram would give a better picture ather previous surgical sites but this is an invasive test. The patient has decided not to proceed with that at this time. Since patient has developed new onset myelopathy, explained to her that x-rays showed myelopathy which is typically that a progression and surgical treatment is recommended. We discussed a possible fusion versus disc replacement at C4-C5 and risks benefits and alternatives to each. After a lengthy discussion with the patient we have decided to proceed with the C4-5 disc replacement. We discussed that she may have issues swallowing after the surgery due to the scar tissue from previous surgeries. We discussed restrictions after surgery. We discussed that the spinalcord is unforgiving and that there is no guarantee that this will be completely reversible with surgery. The issues from bruising of the spinal cord will improve after surgery. ENT consult was completed which shows both vocal cords are moving well. Explained risk benefits and alternatives of surgery. The risks include but are not limited to infection, bleeding, injury to nerves and vessels, dysphagia, dysphonia, hematoma formation, need for further surgery, Cassandra syndrome, recurrent laryngeal nerve injury, persistent pain, persistent numbness and weakness, DVT, pulm embolism, pneumonia, atelectasis, prosthesis malposition, adjacent segment degeneration, spinal cord injury, nerve root injury. Patient understands and agrees to proceed with surgery. Consent was signed. 07/31/24 1106 <Electronically signed by Dg Díaz MD> Cosigner Signature (if applicable): CC: Dr. Dg Díaz MD; Dr. Caremn Jang MD~ Signed [facility] Work Phone: [phone] 841-494506-17-2025 Consult note Author Damien Marroquin [facility] Note Date/Time July 31, 2024 9:06 am [facility] Medical Records Department [address] [place] [id number] Pre-Anesthesia Evaluation 07/31/24901 MR#: [id number] Acct: [id number] Name: YESENIA MARTIN Rep #:[id number] : 1980 43 From: Damien Marroquin MD PCP: Dr. Carmen Jang MD Status:R EG SDC Y Race: C Location: [facility]04-1 ASA Classification* ASA Classification ASA Classification: 2 (Possible MS lesions on brain -- seeing [facility]. Hx of PONV, scopolamine patch ordered) Assessment & Plan Anesthesia* Anesthesia Assessment Anesthesia Assessment: Discussed sedation and/or anesthesia options, risks, benefits, and alternatives with patient/parents/legal guardian/POA. Questions invited. The patient/parents/legal guardian/POA seems to understand and agrees to proceedwith anesthesia plan. Reviewed the physical assessment, medical history, allergy history and patient home medications list prior to surgery/procedure/anesthetic and documented any changes. Performed airway and anesthesia risk assessments. Anesthesia Type Anesthesia Type: General History Source History Obtained from:: Patient and Chart Anesthesia Focused Assessment* Temperature: 99.0 F Pulse Rate: 86 Blood Pressure: 154/91 Respiratory Rate: 18 Pulse Ox: 100 Airway Assessment Mouth opens: >3 cm Mallampati Score: II Teeth Condition: Intact Neck Range of motion (ROM): Full ROM Labs Anesthesia Preop lab: CBC WBC 7.0 K/mm3 (4.4-11.0) 07/19/24 14:16 07/19/24 RBC 4.54 M/mm3 (4.2-5.4) 07/19/24 14:16 07/19/24 Hgb 12.9 g/dL (12.0-15.0) 07/19/24 14:16 07/19/24 Hct 39.0 % (37-47) 07/19/24 14:16 07/19/24 Plt Count 264 K/mm3 (150-450) 07/19/24 14:16 07/19/24 CHEMISTRY Potassium 4.0 mmol/L (3.3-5.1) 07/19/24 14:16 07/19/24 Sodium 137 mmol/L (133-145) 07/19/24 14:16 07/19/24 Magnesium 2.3 mg/dL (1.5-2.2) H 07/19/24 14:16 07/19/24 BUN 12 mg/dL (4-19) 07/19/24 14:16 07/19/24 Creatinine 0.66 mg/dL (0.70-1.20) L 07/19/24 14:16 Glucose 95 mg/dL (70-99) 07/19/24 14:16 07/19/24 COAG Pre-Assessment Diagnosis/Proposed Procedure Planned Operative Procedure(s): Cervical Disc replacement C4-5, possible removalof hardware Anesthesia History Anesthesia History - pharmacognosy teacher: Anesthesia History - pharmacognosy teacher Hx Hospitalization Yes: neck surgery 07/17/24 08:06 Any Problems With Anesthesia Yes: nausea 07/17/24 08:06 Cholinesterase deficiency No 07/17/24 08:06 You/Your Family Experience No 07/17/24 08:06 fever (hyperthermia) with Relationship Recent Exposure to Contagious No 07/31/24 08:47 Disease Does patient have nerve No 07/17/24 08:06 stimulator Patient instructed to have device shut off --Does patient have Pacemaker or ICD? When Was Last Pacemaker Check QUESTION #4 FULL TEXT: You/Your Family Experience fever (hyperthermia) with Anesthesia Last Oral Intake Last Oral intake: Last Oral Intake NPO since 05:30 07/31/24 08:47 Meds taken in AM with sips of No 07/31/24 08:47 water? Meds patient instructed to take am of surgery PONV PONV - pharmacognosy teacher: PONV - pharmacognosy teacher Female Yes 07/17/24 08:06 HX of Motion Sickness Yes 07/17/24 08:06 HX of N/V After Surgery Yes 07/17/24 08:06 Non-Smoker Yes 07/17/24 08:06 Duration of Surgery greater Yes 07/17/24 08:06 than 60 minutes Number of Risk Factors 5 07/17/24 08:06 PONV Score Severe Risk 07/17/24 08:06 Height & Weight Height & Weight: Anesthesia: Height & Weight Height 5 ft 2 in 07/31/24 08:47 Weight: 60 kg 07/31/24 08:47 Body Mass Index (BMI) 24.2 07/31/24 08:47 Respiratory Assessment Respiratory Assessment - pharmacognosy teacher: Respiratory Tract Infection Hx - pharmacognosy teacher Hx Respiratory Tract Infection No 07/17/24 08:06 STOP Sleep Apnea STOP Sleep Apnea - pharmacognosy teacher: STOP Sleep Apnea - pharmacognosy teacher Hx Hypertension No 07/17/24 08:06 Hx Sleep Apnea No 07/17/24 08:06 CPAP No 03/19/15 11:18 BIPAP No 03/19/15 11:18 Do you snore loudly (louder No 07/17/24 08:06 than talking or can be heard Do you often feel tired/ No 07/17/24 08:06 fatigued/ sleepy during daytime? Has anyone observed you stop No 07/17/24 08:06 breathing during sleep? STOP Results Negative 07/17/24 08:06 QUESTION #5 FULL TEXT : Do you snore loudly (louder than talking or can be heard through closed doors)? Tobacco Use History Tobacco Use History - pharmacognosy teacher: Tobacco Use History - pharmacognosy teacher Tobacco Use Smoking Status Former smoker 07/17/24 08:06 Hx Tobacco Use Yes 07/17/24 08:06 Years Smoking Packs Smoked per Day Smoking Cessation Date was No - quit smoking greater 07/17/24 08:06 within the last 15 years than 15 years ago Hx Smoking Cessation Date Hx Smoking Cessation Counseling Hematologic Medial History Hematologic Hx - pharmacognosy teacher: Hematologic Medical Hx - associate veterinarian Hx of Blood Transfusion No 07/17/24 08:06 Hx of Transfusion in last 3 No 07/17/24 08:06 Months Date of Last Transfusion (if within last 3 months) Ever experience any problems No 07/17/24 08:06 with transfusion(s)? Specify any problems Hx of Preganancy in last 3 No 07/17/24 08:06 Months Nurse Filling Out Transfusion [facility] 07/17/24 08:06 & Questions: Date: 07/17/24 07/17/24 08:06 Time: 08:14 07/17/24 08:06 Patient unable to answer at this time (ie. confused, unrespo /Reproduction History /Reproductive History - pharmacognosy teacher: /Reproductive Hx- pharmacognosy teacher Hx Now No 07/17/24 08:06 Gestational Age (in weeks): EDC: Hx Hx Para Hx Section SAB No 07/17/24 08:06 Active Medications Active Medications: Current Medications Generic Name Dose Route Start Last Admin Trade Name Freq PRN Reason Stop Dose Admin Acetaminophen 1,000 mg 07/31/24 10:20 07/31/24 08:52 Acetaminophen 500 Mg Tablet PO 07/31/24 10:21 1,000 mg PREOP ONE Administration Dexamethasone Sodium Phosphate 8 mg 07/31/24 10:20 Dexamethasone 10 Mg/Ml Vial IV 07/31/24 10:21 INTRAOP ONE Dexamethasone Sodium Phosphate 4 mg 07/31/24 10:20 Dexamethasone 4 Mg/Ml Vial IV 07/31/24 10:21 POSTOP ONE Cefazolin Sodium 2 gm/ Sodium 110 mls @ 150 mls/hr 07/31/24 10:20 Chloride IV 07/31/24 11:03 INTRAOP ONE Tranexamic Acid 1,000 mg/ 110 mls @ 440 mls/hr 07/31/24 10:20 Sodium Chloride IV 07/31/24 10:34 INTRAOP ONE Tranexamic Acid 1,000 mg/ 110 mls @ 440 mls/hr 07/31/24 10:20 Sodium Chloride IV 07/31/24 10:34 INTRAOP ONE Magnesium Sulfate 1 gm/ 102 mls @ 408 mls/hr 07/31/24 10:20 07/31/24 08:50 Dextrose IV 07/31/24 10:34 408 mls/hr INTRAOP ONE Administration Lactated Ringer's 1,000 mls @ 15 mls/hr 07/31/24 08:30 07/31/24 08:52 IV 15 mls/hr .Q48H EDOUARD Administration Insulin Human Lispro 1 - 6 unit 07/31/24 10:20 Insulin Lispro 100 Unit/Ml Insuln.Pen SC 07/31/24 18:00 Q4H PRN PRN BG>/= 180, SEE PROTOCOL Protocol PFSH Medical History Wears glasses Alcohol use Restless legs Multiple sclerosis Former smoker History of pain when walking Encounter to establish care Preventative health care Neuropathy Lump of right breast Home Medications ?Medication ?Instructions ?Recorded ?Last Taken ?Type acetaminophen 325 mg tablet 325 mg PO ONCE PRN pain 07/29/24 History (Tylenol) Allergy/AdvReac Type Severity Reaction Status Date / Time cortisone Allergy Intermediate Rash Verified 07/31/24 08:46 Family History Father Diabetes Hypertension Brother Diabetes Aunt Breast cancer Mother Osteoarthritis Surgical History History of elbow surgery H/O neck surgery Hx of right breast biopsy Hx of dilation and curettage Hx of tonsillectomy Hx of eye surgery Hx of hysterectomy Hx of cholecystectomy Social History household members: spouse and children [...] do you feel safe at home: Yes Review of Systems (Anesthesia) ROS Narrative System reviewed and no additional complaints, except as documented. Physical Exam Const alert, oriented x3 and average body habitus Resp normal respiratory effort, normal air movement and clear to auscultation bilaterally Cardio regular rate, regular rhythm, no murmurs and diaphoretic 07/31/24 0906 <Electronically signed by Damien Marroquin MD> Date _ Damien Marroquin MD Cosigner Signature: Date CC: ~ Signed [facility] Work Phone: [phone] History and physical note [facility] Medical Records Department [address] [place] [address] History & Physical Exam 07/31/24 1106 MR#: [id number] Acct: [id number] Name: YESENIA MARTIN #:[id number] : 1980 43 From: Dg Díaz MD PCP: Dr. Carmen Jang MD Status:R [facility] Location: [place] [address] History and Physical Date of Admission: 07/31/24 MR#: [id number] Acct: [id number] Name: YESENIA MARTIN Rep #: [id number] : 1980 Provider: Dr. Dg Díaz MD Age/Sex: 43/F Location[place] [facility] [place] Status: Signed Intake Vital Signs 06/22/2508:28 07/11/2510:53 Height 5 ft 2.5 in 5 ft 2 in Intake Visit Reasons: cervical spine Chief Complaint: Pre-Op Cervical Spine Accompanied by: Is patient in pain?: Yes Pain scale (1-10): 4 Allergies cortisone Allergy (Intermediate, Verified 07/27/24 13:38) Rash Medications ?Medication ?Instructions ?Recorded ?Confirmed ?Type acetaminophen 325 mg tablet 325 mg PO ONCE PRN pain 05/18/24 5 History (Tylenol) PFSH Medical History Wears glasses [...] by me, Dr. Dg Díaz MD 07/27/24 2747. Part of today?s visit was documented by Shreya Salinas ATC, acting as scribe. YESENIA MARTIN is a 43 year old F here today for pre-op cervical disc replacementC4-5, possible removal of hardware DOS 07/31/2024. Patient rates her pain a 4/10 today. She states she has stopped taking Advil but continues to take the Tylenol. 06/22/24: YESENIA MARTIN is a 43 year old F here today for cervical spine pain. She complains of cervical spine pain that extends down in to her left shoulder. This has been goingon for 15 months.She describes the pain as a sharp achy painand at times she feels a shock like sensation.She has been experiencing numbnessand tingling in both arms and both legs. She complains of numbness in her face and bilateral hands. She does experience muscle spasms in her hands. She does report recent issues with her balance, she feels off balance and has to catch herself so that she doesnot fall. She has tried oral steroids which [...] it increases the pain. She drops items withher hands such as her keys. She reports [...] nodules on her thyroid that are checked periodicallywith imaging. She had a brain scan recently that showed lesions consistent with MS. She has an appointment in July at [facility] with a neurologist for further evaluation. [...] mild imbalance. There is hyperreflexia lower extremities. Coding Level of Care Code Off vis,est,level 4 Diagnoses Cervical myelopathy with cervical radiculopathy G95.9; M54.12 Fusion of spine, cervical region M43.22 S/P cervical disc replacement Z98.890 Time Spent (min) 35 Assessment and Plan Assessment and Plan (1) Cervical myelopathy with cervical radiculopathy: Status: Acute (2) Fusion of spine, cervical region: Status: Acute (3) S/P cervical disc replacement: Status: Acute Plan Again reviewed x-rays and MRI done previously. Imaging shows prior C5-6 disc replacement with good mobility and flexion-extension views, C6-7 ACDF with plateinstrumentation with good evidence of fusion. There is adjacent segment degeneration with a central disc herniation at C4-5 causing cord compression with cord edema. Significant artifact from the disc replacement prosthesis noticed at C5-6 level. Again explained to her imaging findings in detail. There is a disc herniation at C4-C5 with pressure on the spinal cord. She has developed myelopathy with radiculopathy. We discussed that a CT myelogram would give a better picture ather previous surgical sites but this is an invasive test. The patient has decided not to proceed with that at this time. Since patient has developed new onset myelopathy, explained to her that x-rays showed myelopathy which is typically that a progression and surgical treatment is recommended. We discussed a possible fusion versus disc replacement at C4-C5 and risks benefits and alternatives to each. After a lengthy discussion with the patient we have decided toproceed with the C4-5 disc replacement. We discussed that she may have issues swallowing after the surgery due to the scar tissue from previous surgeries. We discussed restrictions after surgery. We discussed that the spinalcord is unforgiving and that there is no guarantee that this will be completely reversible with surgery. The issues from bruising of the spinal cord will improve after surgery. ENT consult was completed which shows both vocal cords are moving well. Explained risk benefits and alternatives of surgery. The risks include but are not limited to infection, bleeding, injury to nerves and vessels, dysphagia, dysphonia, hematoma formation, need for further surgery, Cassandra syndrome, recurrent laryngeal nerve injury, persistent pain, persistent numbness and weakness, DVT, pulm embolism, pneumonia, atelectasis, prosthesis malposition, adjacent segment degeneration, spinal cord injury, nerve root injury. Patient understands and agrees to proceed with surgery. Consent was signed. 07/31/24 1106 Cosigner Signature (if applicable): CC: Dr. Dg Díaz MD; Dr. Carmen Jang MD~ Signed [facility]06-17-2025 [facility] Medical Records Department [address] [place] [address] History Physical Exam 07/31/24 110 MR#: [id number] Acct: [id number] Name: YESENIA MARTIN Rep #: [id number] : 1980 43 From: Dg Díaz MD PCP: Dr. Carmen Jang MD [place] [facility] [place] [address] History and Physical Date of Admission: 07/31/24 MR#: [id number] Acct: [id number] Name: YESENIA MARTIN Rep #: [id number] : 1980 Provider: Dr. Dg Díaz MD Age/Sex: 43/F [place] [facility] [place] Status: Signed Intake Vital Signs 06/22/2508:28 07/11/2510:53 [...] ONCE PRN pain 05/18/24 07/27/24 History (Tylenol) [facility] Medical History Wears glasses Alcohol [...] by me, Dr. Dg Díaz MD 07/27/24 8491. Part of today???s visit was documented by Shreya Salinas ATC, acting as scribe. YESENIA MARTIN is a 43 year old F here today for pre-op cervical disc replacement C4-5, possible removal of hardware DOS 07/31/2024. Patient rates her pain a 4/10 today. She states she has stopped taking Advil but continues to take the Tylenol. 06/22/24: YESENIA MARTIN is a 43 year old F [...] She has an appointment in July at [facility] with a neurologist for further evaluation. Ortho Exam General General: Yes no acute distress Neurologic: Yes alert Psychologic: Yes reasonable and appropriate Spine SPINE TESTING CERVICAL THORACIC LUMBAR Musculoskeletal Strength 0=abse (more content not included)...[facility] 07-31-2024 Consult note [facility] Medical Records Department [address] [place] [address] Pre-Anesthesia Evaluation 07/31/24 0902 MR#: [id number] Acct: [id number] Name: YESENIA MARTIN Rep #:[id number] : 1980 43 From: Damien Marroquin MD PCP: Dr. Carmen Jang MD Status:R [facility] Y Race: C Location: [place] [address] ASA Classification* ASA Classification ASA Classification: 2 (Possible MS lesions on brain -- seeing [facility] Neuro. Hx of PONV, scopolamine patch ordered) Assessment & Plan Anesthesia* Anesthesia Assessment Anesthesia Assessment: Discussed sedation and/or anesthesia options, risks, benefits, and alternatives with patient/parents/legal guardian/POA. Questions invited. The patient/parents/legal guardian/POA seems to understand and agrees to proceedwith anesthesia plan. Reviewed the physical assessment, medical history, allergy history and patient home medications list prior to surgery/procedure/anesthetic and documented any changes. Performed airway and anesthesia risk assessments. Anesthesia Type Anesthesia Type: General History Source History Obtained from:: Patient and Chart Anesthesia Focused Assessment* Temperature: 99.0 F Pulse Rate: 86 Blood Pressure: 154/91 Respiratory Rate: 18 Pulse Ox: 100 Airway Assessment Mouth opens: >3 cm Mallampati Score: II Teeth Condition: Intact Neck Range of motion (ROM): Full ROM Labs Anesthesia Preop lab: CBC WBC 7.0 K/mm3 (4.4-11.0) 07/19/24 14:16 07/19/24 RBC 4.54 M/mm3 (4.2-5.4) 07/19/24 14:16 07/19/24 Hgb 12.9 g/dL (12.0-15.0) 07/19/24 14:16 07/19/24 Hct 39.0 % (37-47) 07/19/24 14:16 07/19/24 Plt Count 264 K/mm3 (150-450) 07/19/24 14:16 07/19/24 CHEMISTRY Potassium 4.0 mmol/L (3.3-5.1) 07/19/24 14:16 07/19/24 Sodium 137 mmol/L (133-145) 07/19/24 14:16 07/19/24 Magnesium 2.3 mg/dL (1.5-2.2) H 07/19/24 14:16 07/19/24 BUN 12 mg/dL (4-19) 07/19/24 14:16 07/19/24 Creatinine 0.66 mg/dL (0.70-1.20) L 07/19/24 14:16 Glucose 95 mg/dL (70-99) 07/19/24 14:16 07/19/24 COAG Pre-Assessment Diagnosis/Proposed Procedure Planned Operative Procedure(s): Cervical Disc replacement C4-5, possible removalof hardware Anesthesia History Anesthesia History - pharmacognosy teacher: Anesthesia History - pharmacognosy teacher Hx Hospitalization Yes: neck surgery 07/17/24 08:06 Any Problems With Anesthesia Yes: nausea 07/17/24 08:06 Cholinesterase deficiency No 07/17/24 08:06 You/Your Family Experience No 07/17/24 08:06 fever (hyperthermia) with Relationship Recent Exposure to Contagious No 07/31/24 08:47 Disease Does patient have nerve No 07/17/24 08:06 stimulator Patient instructed to have device shut off --Does patient have Pacemaker or ICD? When Was Last Pacemaker Check QUESTION #4 FULL TEXT: You/Your Family Experience fever (hyperthermia) with Anesthesia Last Oral Intake Last Oral intake: Last Oral Intake NPO since 05:30 07/31/24 08:47 Meds taken in AM with sips of No 07/31/24 08:47 water? Meds patient instructed to take am of surgery PONV PONV - pharmacognosy teacher: PONV - pharmacognosy teacher Female Yes 07/17/24 08:06 HX of Motion Sickness Yes 07/17/24 08:06 HX of N/V After Surgery Yes 07/17/24 08:06 Non-Smoker Yes 07/17/24 08:06 Duration of Surgery greater Yes 07/17/24 08:06 than 60 minutes Number of Risk Factors 5 07/17/24 08:06 PONV Score Severe Risk 07/17/24 08:06 Height & Weight Height & Weight: Anesthesia: Height & Weight Height 5 ft 2 in 07/31/24 08:47 Weight: 60 kg 07/31/24 08:47 Body Mass Index (BMI) 24.2 07/31/24 08:47 Respiratory Assessment Respiratory Assessment - pharmacognosy teacher: Respiratory Tract Infection Hx - pharmacognosy teacher Hx Respiratory Tract Infection No 07/17/24 08:06 STOP Sleep Apnea STOP Sleep Apnea - pharmacognosy teacher: STOP Sleep Apnea - pharmacognosy teacher Hx Hypertension No 07/17/24 08:06 Hx Sleep Apnea No 07/17/24 08:06 CPAP No 03/19/15 11:18 BIPAP No 03/19/15 11:18 Do you snore loudly (louder No 07/17/24 08:06 than talking or can be heard Do you often feel tired/ No 07/17/24 08:06 fatigued/ sleepy during daytime? Has anyone observed you stop No 07/17/24 08:06 breathing during sleep? STOP Results Negative 07/17/24 08:06 QUESTION #5 FULL TEXT : Do you snore loudly (louder than talking or can be heard through closeddoors)? Tobacco Use History Tobacco Use History - pharmacognosy teacher: Tobacco Use History - pharmacognosy teacher Tobacco Use Smoking Status Former smoker 07/17/24 08:06 Hx Tobacco Use Yes 07/17/24 08:06 Years Smoking Packs Smoked per Day Smoking Cessation Date was No - quit smoking greater 07/17/24 08:06 within the last 15 years than 15 years ago Hx Smoking Cessation Date Hx Smoking Cessation Counseling Hematologic Medial History Hematologic Hx - pharmacognosy teacher: Hematologic Medical Hx - associate veterinarian Hx of Blood Transfusion No 07/17/24 08:06 Hx of Transfusion in last 3 No 07/17/24 08:06 Months Date of Last Transfusion (if within last 3 months) Ever experience any problems No 07/17/24 08:06 with transfusion(s)? Specify any problems Hx of Preganancy in last 3 No 07/17/24 08:06 Months Nurse Filling Out Transfusion [facility] 07/17/24 08:06 & Questions: Date: 07/17/24 07/17/24 08:06 Time: 08:14 07/17/24 08:06 Patient unable to answer at this time (ie. confused, unrespo /Reproduction History /Reproductive History - pharmacognosy teacher: /Reproductive Hx- pharmacognosy teacher Hx Now No 07/17/24 08:06 Gestational Age (in weeks): EDC: Hx Hx Para Hx Section SAB No 07/17/24 08:06 Active Medications Active Medications: Current Medications Generic Name Dose Route Start Last Admin Trade Name Freq PRN Reason Stop Dose Admin Acetaminophen 1,000 mg 07/31/24 10:20 07/31/24 08:52 Acetaminophen 500 Mg Tablet PO 07/31/24 10:21 1,000 mg PREOP ONE Administration Dexamethasone Sodium Phosphate 8 mg 07/31/24 10:20 Dexamethasone 10 Mg/Ml Vial IV 07/31/24 10:21 INTRAOP ONE Dexamethasone Sodium Phosphate 4 mg 07/31/24 10:20 Dexamethasone 4 Mg/Ml Vial IV 07/31/24 10:21 POSTOP ONE Cefazolin Sodium 2 gm/ Sodium 110 mls @ 150 mls/hr 07/31/24 10:20 Chloride IV 07/31/24 11:03 INTRAOP ONE Tranexamic Acid 1,000 mg/ 110 mls @ 440 mls/hr 07/31/24 10:20 Sodium Chloride IV 07/31/24 10:34 INTRAOP ONE Tranexamic Acid 1,000 mg/ 110 mls @ 440 mls/hr 07/31/24 10:20 Sodium Chloride IV 07/31/24 10:34 INTRAOP ONE Magnesium Sulfate 1 gm/ 102 mls @ 408 mls/hr 07/31/24 10:20 07/31/24 08:50 Dextrose IV 07/31/24 10:34 408 mls/hr INTRAOP ONE Administration Lactated Ringer's 1,000 mls @ 15 mls/hr 07/31/24 08:30 07/31/24 08:52 IV 15 mls/hr .Q48H EDOUARD Administration Insulin Human Lispro 1 - 6 unit 07/31/24 10:20 Insulin Lispro 100 Unit/Ml Insuln.Pen SC 07/31/24 18:00 Q4H PRN PRN BG>/= 180, SEE PROTOCOL Protocol PFSH Medical History Wears glasses Alcohol use Restless legs Multiple sclerosis Former smoker History of pain when walking Encounter to establish care Preventative health care Neuropathy Lump of right breast Home Medications ?Medication ?Instructions ?Recorded ?Last Taken ?Type acetaminophen 325 mg tablet 325 mg PO ONCE PRN pain 07/29/24 History (Tylenol) Allergy/AdvReac Type Severity Reaction Status Date / Time cortisone Allergy Intermediate Rash Verified 07/31/24 08:46 Family History Father Diabetes Hypertension Brother Diabetes Aunt Breast cancer Mother Osteoarthritis Surgical History History of elbow surgery H/O neck surgery Hx of right breast biopsy Hx of dilation and curettage Hx of tonsillectomy Hx of eye surgery Hx of hysterectomy Hx of cholecystectomy Social History household members: spouse and children [...] do you feel safe at home: Yes Review of Systems (Anesthesia) ROS Narrative System reviewed and no additional complaints, except as documented. Physical Exam Const alert, oriented x3 and average body habitus Resp normal respiratory effort, normal air movement and clear to auscultation bilaterally Cardio regular rate, regular rhythm, no murmurs and diaphoretic 07/31/24 0906 > Date _ Damien Marroquin MD Cosigner Signature: Date CC: ~ Signed [facility]06-13-2025 Evaluation note* Diagnosis Onset Date Resolution Status Admit Date Cervical myelopathy with cervical radiculopathy acute July 1:24pm Fusion of spine, cervical region acute July 27, 2024 1:24pm S/P cervical disc replacement acute July 27, 2024 1:24pm S/P cervical disc replacement acute July 31, 2024 2:12pm S/P cervical disc replacement acute August 16, 2024 9 :59am S/P cervical disc replacement acute September 13, 2024 9:56am S/P cervical disc replacement acute November 02, 2024 9:59am Cervical radiculopathy noneactive Se ptember 2024 9:59am [facility] Work Phone: 1(655) 516-822604-21-2025 Telephone encounter Note* Telephone Encounter - Guerline Morse - 06/04/2024 12:08 PM EDT Patient called to request discs of 07/04/23 MRI Cervical Spine and 05/25/24 MRI Thoracic Spine. Please notify patient when items are available for rock picker ph. [phone]. [facility]04-21-2025 Miscellaneous Notes* Telephone Encounter - Guerline oMrse - 06/04/2024 12:08 PM EDT Patient called to request discs of 07/04/23 MRI Cervical Spine and 05/25/24 MRI Thoracic Spine. Please notify patient when items are available for rock picker ph. [phone]. documented in this encounterAdams County Regional Medical Center04-11-2025 History of Present illness Narrative* Josey Marie RT(R) - 05/25/2024 9:00 AM EDT Radiology Service Progress Note DATE OF SERVICE: [...] Assigned female at . status: : No status:NO. PATIENT RELEVANT IMPLANT DATA REVIEWED: Yes PATIENT PRESENTS WITH AN IMPLANTABLE OR ATTACHED SHRIMP PEELER: No ALLERGIES: Reviewed and unchanged CONTRAST ALLERGY: NO. EXAM: MRI - CONTRAST TYPE: GROUP II PERIPHERAL IV DATA: Ambulatory: A peripheral IV was started in the Left antecubital site with a Angio cath: 22 gauge. RADIOLOGY DEPARTMENT: MR; Exam(s) Completed: Spine: Thoracic spine SIGNATURE: RT Klever(R) PATIENT NAME: Yesenia Martin DATE: May 25, 2024 TIME: 8:56 AM documented in this encounterAdams County Regional Medical Center04-11-2025 NoteHNO ID: [id number] Author: JOSEY MARIE RT(Rita) Service: ? Author Type: Technologist Type: Progress [...] PATIENT PRESENTS WITH AN IMPLANTABLE OR ATTACHED SHRIMP PEELER: No ALLERGIES: Reviewed and unchanged CONTRAST ALLERGY: NO. EXAM: MRI - CONTRAST TYPE: GROUP II PERIPHERAL IV DATA: Ambulatory: A peripheral IV was started in the Left antecubital site with a Angio cath: 22 gauge. RADIOLOGY DEPARTMENT: MR; Exam(s) Completed: Spine: Thoracic spine SIGNATURE: Josey Marie, RT(R) PATIENT NAME: Yesenia Martin DATE: May 25, 2024 TIME: 8:56 [facility]04-04-2025 Evaluation note* Diagnosis Onset Date Resolution Status Admit Date Encounter to establish care acute May 18, 2024 9:18am Neurologic disorder acute May 18, 2024 9:18am Preventative health care acute May 18, 2024 9:18am Neuropathy suspected May 18 9:18am Cervical spinal stenosis due to adjacent segment disease after fusion procedure chronic June 01 9:27am Neuropathy suspected June 01 9:27am H/O neck surgery resolved June 012024 9:27am Cervical myelopathy with cervical radiculopathy acute June 22, 2024 9:23am Fusion of spine, cervical region acute June 22, 2024 9: 23am S/P cervical disc replacement acute June 22, 2024 9:23am Pre-op exam acute July 11 11:23am Cervical myelopathy with cervical radiculopathy acute July 1:24pm Fusion of spine, cervical region acute July 27, 2024 1:24pm S/P cervical disc replacement acute July 27, 2024 1:24pm S/P cervical disc replacement acute July 31, 2024 2:12pm [facility] Work Phone: 1(213) 396-145504-04-2025 Evaluation note* Diagnosis Onset Date Resolution Status Admit Date Encounter to establish care acute May 18, 2024 9:18am Neurologic disorder acute May 18, 2024 9:18am Preventative health care acute May 18, 2024 9:18am Neuropathy suspected May 18 9:18am Cervical spinal stenosis due to adjacent segment disease after fusion procedure chronic June 01 9:27am Neuropathy suspected June 01 9:27am H/O neck surgery resolved June 012024 9:27am Cervical myelopathy with cervical radiculopathy acute June 22, 2024 9:23am Fusion of spine, cervical region acute June 22, 2024 9: 23am S/P cervical disc replacement acute June 22, 2024 9:23am Pre-op exam acute July 11 11:23am Cervical myelopathy with cervical radiculopathy acute July 1:24pm Fusion of spine, cervical region acute July 27, 2024 1:24pm S/P cervical disc replacement acute July 27, 2024 1:24pm S/P cervical disc replacement acute July 31, 2024 2:12pm S/P cervical disc replacement acute August 16, 2024 9:59am [employer] [place] [employer] Work Phone: 1(765) 127-459303-28-2025 History of Present illness Narrative* Ramón Orellana MD - 05/11/2024 10:30 AM EDT Images from the original note were not included. [facility] VIRTUAL VISIT FOR NEW PATIENT EVALUATION Referral source: SELF Also followed by: Giuseppe Ang [id number] [address] I have communicated my name and active licensure. The patient's identity and physical location [[place]]were verified at the time of this visit. Either the patient or their legal rental sales representative has been informed of the [...] requested by the patient for a second opinionon abnormal brain MRI. The patient was not accompanied by anyone. Previous records (physician notes, laboratory reports, and radiology reports) and imaging studies were reviewed and summarized. My recommendations will be communicated back to the patient's physician(s) via electronic medical record.Follow-up is expected to be with the patient's [...] disc protrusion and cord compression for which sheunderwent C6-7 ACDF 03/28/2023 but has continued to remain symptomatic. She reports prior to surgeryshe was also having left foot numbness and over the past 1.5 year she has also had sensory symptomsin the RUE and RLE. She has also noted numbness in bilateral face. The symptoms migrate from various body parts lasting from couple of days to weeks. She denies any other focal neurological deficits suggestive of demyelinating disease. She is ex-smoker (quit March 2023). She reports occasional alcohol use over the weekends. 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 She has had history of hysterectomy for [...] forconstipation. (Patient not taking: Reported on 08/04/2023) MULTIVITAMIN ORAL Take by mouth once daily. No current facility-administered medications for this visit. ALLERGIES Allergen Reactions Cortisone Hives Reaction to injection FAMILY HISTORY Problem Relation Age of Onset Arthritis Mother Diabetes Father Hypertension Father Lipids Father Colon Cancer Maternal Grandmother Diabetes Paternal Grandmother Heart Paternal Grandmother Diabetes Paternal Grandfather Ischemic Heart Disease Paternal Grandfather HI and CVA Breast Cancer Maternal Aunt dx [...] generalized weakness, imbalance, and headaches. Neuroimaging is notablefor mild burden of subcortical WM disease but [...] which included preparing to see the patient, [id number] patient care, completing clinical documentation, obtaining and/or reviewing separately obtained history, performing a medically appropriate examination, counseling and educating the pat ient/family/caregiver, and ordering medications, tests, or procedures. I have communicated my name and active licensure. The patient's identity and physical location wereverified at the time of this visit. Either the patient or their legal rental sales representative has been informed of the risks and benefits of -- and alternatives to -- treatment through a remote evaluation andconsents to proceed with the evaluation remotely. Ramón Orellana MD Staff Neurologist [facility] for Multiple S[facility] documented in this encounterAdams County [facility] Center03-28-2025 NoteHNO ID: [id number] Author: RAMÓN ORELLANA MD Service: ? Author Type: Physician Type: Progress Notes Filed: 05/11/2024 11:08 Note Text: [facility] VIRTUAL VISIT FOR NEW PATIENT EVALUATION Referral source: SELF Also followed by: Giuseppearianne Ang [address] [place] [address] I have communicated my name and active licensure. The patient's identity and physical location [[place]] were verified at the time of this visit. Either the patient or their legal rental sales representative has been informed of the [...] the weekends. 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 She has had history of hysterectomy for [...] - CVA, MS ru (more content not included)...[facility] [id number] Telephone encounter Note* Telephone Encounter - Yanely Daniels LPN - 05/10/2024 2:45 PM EDT MRI images have arrived and are viewable in Epic. Yanely Daniels LPN [facility]03-27-2025 Miscellaneous Notes* Telephone Encounter - Yanely Daniels LPN - 05/10/2024 2:45 PM EDT MRI images have arrived and are viewable in Epic. Yanely Daniels LPN * Telephone Encounter - Yanely Daniels LPN - 05/10/2024 2:18 PM EDT Email [facility] film room to expedite MRI imaging process. Yanely Daniels LPN * Telephone Encounter - Yanely Daniels LPN - 05/10/2024 1:55 PM EDT [facility] NEW PATIENT REFERRAL TRIAGE Referral source:self No referring provider defined for this encounter. Referral Reason: for a second opinion on neurological symptoms Care Everywhere Completed Connection: [x]Yes or []No MRI Imaging and reports (over the last 5-10 years most important) from [facility] Location(s) Previous MRI Imaging has been obtained: [facility] Radiology/Film Library contact: [phone] 04/2024 MRI Brain MRI Cervical Date Requested: 05/10/24 Method of Request: Called in Request [x] or Faxed Request [] Yanely Daniels LPN documented in this encounterCleveland [id number] Telephone encounter Note * Telephone Encounter - Yanely Daniels LPN - 05/10/2024 2:18 PM EDT Email [facility] film room to expedite MRI imaging process. Yanely Daniels LPN [facility]03-27-2025 Telephone encounter Note* Telephone Encounter - Yanely Daniels LPN - 05/10/2024 1:55 PM EDT [facility] NEW PATIENT REFERRAL TRIAGE Referral source:self No referring provider defined for this encounter. Referral Reason: for a second opinion on neurological symptoms Care Everywhere Completed Connection: [x]Yes or []No MRI Imaging and reports (over the last 5-10 years most important) from [facility] Location(s) Previous MRI Imaging has been obtained: [facility] Radiology/Film Library contact: [phone] 04/2024 MRI Brain MRI Cervical Date Requested: 05/10/24 Method of Request: Called in Request [x] or Faxed Request [] Yanely Daniels LPN [facility]02-20-2025 Evaluation note* Diagnosis Onset Date Resolution Status Admit Date Neurologic disorder acute 2024 3:24pm Cervical spinal stenosis due to adjacent segment disease after fusion procedure chronic April 05, 2024 3:24pm [facility] Work Phone: 1(961) 396-365002-20-2025 Evaluation note* Diagnosis Onset Date Resolution Status Admit Date Neurologic disorder acute u 2024 3:24pm Cervical spinal stenosis due to [...] disc replacement acute June 22, 2024 9:23am [employer] [place] [employer] Work Phone: 1(404) 337-733902-20-2025 Evaluation note* Diagnosis Onset Date Resolution Status [...] 9:23am Pre-op exam acute July 11 11:23am [place] [employer] Work Phone: 1(439) 259-178702-20-2025 Evaluation note* Diagnosis Onset Date Resolution Status [...] 9:23am Pre-op exam acute July 11 11:23am Cervical myelopathy with cervical radiculopathy acute July 1:24pm Fusion of spine, cervical region acute July 27, 2024 1:24pm S/P cervical disc replacement acute July 27, 2024 1:24pm S/P cervical disc replacement acute July 31, 2024 2:12pm [facility] Work Phone: 1(265) 235-721708-06-2024 Telephone encounter Note* Telephone Encounter - Caterina Hernandez, RN - 09/20/2023 6:38 PM EDT Neuro SPINE CARE COORDINATION QUICK NOTE Pt is s/p surgery: 06/2019 C5/6 left sided ADR with [facility] 03/28/2023 C6-C7 ACDF with Dr Kothari Last appt with Dr Kothari was 05/20/23 Last appt with [employer] TE[employer]ER was 06/27/23 MRI-C 07/04/23 XR-C 06/17/23 Pt was previously on Gabapentin, did not help and had side effects. Pt continues with PT, ice, tens unit, chiropractor [facility] Work Phone: 1(672) 568-888108-06-2024 Miscellaneous Notes* Telephone Encounter - Caterina Hernandez, RN - 09/20/2023 6:38 PM EDT Neuro SPINE CARE COORDINATION QUICK NOTE Pt is s/p surgery: 06/2019 C5/6 left sided ADR with [facility] 03/28/2023 C6-C7 ACDF with Dr Kothari Last appt with Dr Kothari was 05/20/23 Last appt with [employer] TE[employer] was 06/27/23 MRI-C 07/04/23 XR-C 06/17/23 Pt was previously on Gabapentin, did not help and had side effects. Pt continues with PT, ice, tens unit, chiropractor documented in this encounterAdams County [facility] Center06-21-2024 Note* Addendum Note - Parker Downing PA-C - 08/05/2023 5:15 PM EDTAddended by: PARKER DOWNING on: 08/05/2023 05:15 PM Modules accepted: Orders [facility]06-21-2024 Miscellaneous Notes* Addendum Note - Parker Downing PA-C - 08/05/2023 5:15 PM EDTAddended by: PARKER DOWNING on: 08/05/2023 05:15 PM Modules accepted: Orders * Telephone Encounter - Caterina Hernandez RN - 08/05/2023 4:15 PM EDT Neuro SPINE CARE COORDINATION QUICK NOTE Called and left message for pt to return call, will also respond to [place] message. Pt is 18wks and 4 days s/p C6/7 ACDF on 03/28/23. Pt reported sharp, shooting, pulling pain in shoulder and down to elbow after she went bowling for 1 game and used a 6 lb ball. documented in this encounterAdams County Regional [facility] Center06-21-2024 Telephone encounter Note * Telephone Encounter - Caterina Hernandez RN - 08/05/2023 4:15 PM EDT Neuro SPINE CARE COORDINATION QUICK NOTE Called and left message for pt to return call, will also respond to [place] message. Pt is 18wks and 4 days s/p C6/7 ACDF on 03/28/23. Pt reported sharp, shooting, pulling pain in shoulder and down to elbow after she went bowling for 1 game and used a 6 lb ball. [facility] Work Phone: 1(677) 542-466506-20-2024 History of Present illness Narrative* Laney Stuart PA-C - 08/04/2023 1:53 PM EDT Images [...] Medication Comments: -- tens unit, advil, tylenol Yesenia Martin is a 43-year-old female who comes [...] results and radiologist's interpretation, available in the [facility] health record. Images were reviewed with the [...] discussed emergent need to return to the [facility] care or go to the emergency department. We discussed red flags associated with this condition and emergent treatment if they present. Laney Stuart PA-C documented in this encounterAdams County Regional [facility] Center06-20-2024 Telephone encounter Note * Telephone Encounter - Archana Kwok CT - 08/04/2023 12:31 PM EDT Called patient to discuss appointment this afternoon. She was seen in [facility] earlier today at 8:20am and scheduled to see Sandra this afternoon at 1:40pm in orthopedics. Sandra advised me to call the patient and let her know that it is a possibility that one of these 2 visits may not be covered by her insurance, and to give the patient the option tocome in or reschedule. Patient elected to come into the office this afternoon. Will f/u as scheduled/PRN, Archana Kwok Cast Tech [facility]06-20-2024 Miscellaneous Notes* Telephone Encounter - Archana Kwok CT - 08/04/2023 12:31 PM EDT Called patient to discuss appointment this afternoon. She was seen in [facility] earlier today at 8:20am and scheduled to see Sandra this afternoon at 1:40pm in orthopedics. Sandra advised me to call the patient and let her know that it is a possibility that one of these 2 visits may not be covered by her insurance, and to give the patient the option tocome in or reschedule. Patient elected to come into the office this afternoon. Will f/u as scheduled/PRN, Archana Kwok Cast Tech documented in this encounterAdams County [facility] Medical Center06-20-2024 Instructions* Patient Instructions* Coretta Murrell APRN.CNP - 08/04/2023 8:50 AM EDT [facility].I[facility] The [...] pillows when lying down. documented in this [facility]06-20-2024 History of Present illness Narrative* Gela Hunt RT(R) - 08/04/2023 8:20 AM EDT Radiology Service Progress Note PATIENT NAME: Yesenia Martin DATE OF SERVICE: August 04, 2023 [...] PATIENT PRESENTS WITH AN IMPLANTABLE OR ATTACHED SHRIMP PEELER: No RADIOLOGY DEPARTMENT: General X-ray: Exam(s) Completed: Upper Extremity X- Ray(s): Shoulder, AP / TRUE AP / AXILLARY left PERIPHERAL IV DATA: Not applicable SIGNED BY: RT Stefany(R) August 04, 2023 8:20 AM documented in this encounterAdams County Regional Medical Center06-20-2024 History of Present illness Narrative* Coretta Murrell APRN.[employer] TE[employer]ER - 08/04/2023 8:12 AM EDT This note was created using [employer] Group[employer]. Subjective Yesenia Martin is a 42 year old female. [...] history is provided by the patient. No abatement worker was used. PAST MEDICAL HISTORY Diagnosis Date [...] Paternal Grandfather Ischemic Heart Disease Paternal Grandfather HI and CVA Breast Cancer Maternal Aunt dx age 40's Colon Cancer Paternal Aunt dx age 30's Cancer Other cousin-uterine cancer other (migraine) Brother Cervical Cancer Other maternal cousin Social History Tobacco Use Smoking status: Former Packs/day: 0.25 Years: 8.00 Additional pack years: 0.00 Total pack years: 2.00 Types: Cigarettes Quit date: 2018 Years since quittin.4 Smokeless tobacco: Never Tobacco [...] flags and reasons to seek ED Coretta Murrell APRN.[employer] TE[employer] TEACHER documented in this encounterAdams County Regional Medical Center05-20-2024 History of Present illness Narrative* Symone Bridges RT(R) - 07/04/2023 8:00 AM EDT Radiology Service Progress Note PATIENT NAME: Yesenia Martin DATE OF SERVICE: July 04, 2023 [...] PATIENT PRESENTS WITH AN IMPLANTABLE OR ATTACHED SHRIMP PEELER: No RADIOLOGY DEPARTMENT: MR; Exam(s) Completed: Spine: Cervical spine PERIPHERAL IV DATA: Not applicable SIGNED BY: RT Tamica(R) July 04, 2023 8:54 AM documented in this encounterAdams County Regional Medical Center05-06-2024 History of Present illness Narrative* June Parsons PTA - 06/20/2023 4:02 PM EDT Program_ID:[id number] Access Code: [email or web address] URL: [email or web address] Date: 06-20-2023 Prepared By: Coretta Zaragoza Program Notes Exercises - Doorway Pec Stretch [...] sets - 10 reps - Ulnar Nerve/Median [place]- Low Level - 1 x daily - 7 x weekly - 1-2 sets - 10 reps * Coretta Zaragoza PT - 06/20/2023 3:34 PM EDT Episode Visit Count: 3 Therapist That Will Accept/Oversee The Plan Of Care: Coretta Zaragoza Start of Care Date: 06/07/23 Onset Date: 03/28/23 Plan of Care Certification Date: 06/07/23 Next Certification Due Date: 07/12/23 Patient Identified by Name and Date of : Yes REHABILITATION AND SPORTS THERAPY PHYSICAL THERAPY TREATMENT NOTE ASSESSMENT: Yesenia Martin tolerated the session with fatigue, increased symptoms, and expected muscle soreness. She demonstrated improvements in radicular symptoms with ulnar nerve glide. The patient will continue to benefit from ongoing skilled physical therapy to progress toward set goals. PLAN FOR NEXT VISIT: scapular stabilization with therfrancie, nova SUBJECTIVE: Pt reports that her neck and [...] Time (minutes): 36 Session Start Time : 1531 Session Stop Time : 1608 IBIS [place] PT documented in this encounterNathan Ville [address]-03-2024 History of Present illness Narrative* Lorrie Dubois RT(R) - 06/17/2023 4:30 PM EDT Radiology Service Progress Note PATIENT NAME: Yesenia Martin DATE OF SERVICE: June 17, 2023 [...] PATIENT PRESENTS WITH AN IMPLANTABLE OR ATTACHED SHRIMP PEELER: No RADIOLOGY DEPARTMENT: General X-ray: Exam(s) Completed: Spine X-Ray(s): Cervical AP / LAT / FLEX-EXT PERIPHERAL IV DATA: Not applicable SIGNED BY: RT Juice(R) June 17, 2023 4:26 PM documented in this encounterAdams County Regional Medical Center04-30-2024 History of Present illness Narrative* Coretta Zaragoza PT - 06/14/2023 4:51 PM EDT Program_ID:[id number] Access Code: [email or web address] URL: [email or web address] Date: 06-14-2023 Prepared By: Coretta Zaragoza Program Notes Exercises - Doorway Pec Stretch [...] 4 sets - 10 reps * Coretta Zaragoza PT - 06/14/2023 4:20 PM EDT Episode Visit Count: 2 Therapist That Will Accept/Oversee The Plan Of Care: Coretta Zaragoza Start of Care Date: 06/07/23 Onset Date: 03/28/23 Plan of Care Certification Date: 06/07/23 Next Certification Due Date: 07/12/23 REHABILITATION AND SPORTS THERAPY PHYSICAL THERAPY TREATMENT NOTE ASSESSMENT: Yesenia Martin tolerated the session with fatigue and [...] sec of static hold) 3: *Access Code: [email or web address] URL: [email or web address] Date: 06/14/2023 Prepared by: Coretta Wilhelm Exercises [...] 1618 Session Stop Time : 1658 Coretta Zaragoza PT documented in this encounterAdams County Regional Medical Center04-23-2024 History of Present illness Narrative* Coretta Zaragoza PT - 06/07/2023 4:08 PM EDT Program_ID:[id number] Access Code: [email or web address] URL: [email or web address] Date: 06-07-2023 Prepared By: Coretta Zaragoza Program Notes Exercises - Supine Chin Tuck - 2 x daily - 7 x weekly - 4 sets - 10 reps - Seated Scapular Retraction - 2 x daily - 7 x weekly - 2 sets - 20 reps - Seated Gentle Upper Trapezius Stretch - 2 x daily - 7 x weekly - 3 sets - 1 reps * Coretta Zaragoza PT - 06/07/2023 3:45 PM EDT Images from the original note were not included. Episode Visit Count: 1 Therapist That Will Accept/Oversee The Plan Of Care: Coretta Zaragoza Start of Care Date: 06/07/23 Onset Date: 03/28/23 Plan of Care Certification Date: 06/07/23 Next Certification Due Date: 07/12/23 Patient Identified by Name and Date of : Yes REHABILITATION AND SPORTS THERAPY PHYSICAL THERAPY EVALUATION PLAN OF CARE: Assessment: Yesenia Martin presents with diagnosis of s/p cervical [...] Planned: 5 Planned Treatment Interventions: Therapeutic exercise (11038), Neuromuscular re- education (58892), Manual therapy (50470), Therapeutic activities (52756), Self- nursing home management (66207), Gait Training (20608) PLAN FOR NEXT VISIT: continue supine cervical retraction, add scapular and cervical isometrics Patient demonstrates good understanding of plan of care and treatment. The above goals and plan of care were discussed and agreed upon by patient/family. SUBJECTIVE: for s/p C6-C7 ACDF by Dr. Petey Kothari. Pt. returned to work 05/23/23. 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 Patient education as noted. Self-Fdc Management: 1: discussed cervical spine mobilizer and [...] [id number] Session Stop Time : 1630 Coretta Zaragoza PT documented in this encounterAdams County [facility] Center04-22-2024 Telephone encounter Note * Telephone Encounter - Alexa Flower RN - 06/06/2023 11:41 AM EDT Had on 03/28/2023: C6-C7 ACDF [facility]04-22-2024 Miscellaneous Notes* Telephone Encounter - Alexa Flower RN - 06/06/2023 11:41 AM EDT Had on 03/28/2023: C6-C7 ACDF documented in this encounterAdams County Regional Medical Center04-05-2024 Miscellaneous Notes* Telephone Encounter - Caterina Hernandez RN - 05/20/2023 12:01 PM EDT Neuro SPINE CARE COORDINATION QUICK NOTE RTW letter completed and sent to pt via Putney per pt request. 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 She would like the letter put in [email or web address]. Patient scheduled PT with [facility]. Gave the [...] would need fax number. documented in this encounterAdams County Regional Medical Center04-05-2024 History of Present illness Narrative* Petey Kothari MD - 05/20/2023 8:51 AM EDT The [...] are lifted Follow-up in 6 months virtually Petey Kothari M.D. 10-minute virtual visit documented in this encounterAdams County Regional Medical Center03-08-2024 History of Present illness Narrative* Parker Leiva Sanam, VENEER JOINTER RETURNER.MIDDLE SCHOOL TECHNOLOGY TEACHER - 04/22/2023 3:00 PM EST SPINE SURGERY FOLLOW UP - VIRTUAL VISIT This is a virtual visit using JoyTunes Zoom Video Visit. It required patient- provider interaction for the medical decision making as documented below. I have communicated my name and active licensure. The patient's identity and physical location wereverified at the time of this visit. Either the patient or their legal rental sales representative has been informed of the risks and benefits of -- and alternatives to -- treatment through a remote evaluation andconsents to proceed with the evaluation remotely. SERVICE DATE: April 22, 2023 PREVIOUS SPINAL SURGERY: 06/2019 C5/6 left sided ADR with [facility] [place] [facility] SURGERY DATE: 03/28/2023 SURGERY: C6-C7 ACDF SURGEON: Dr. Corbin Kothari PRE-OP SX: left cervical radiculopathy as well as RUE and BLE paraesthesias; neck pain D/c date: 03/29/2023 D/mike to: home Yesenia Martin is seen for almost 4 week [...] cervical spinal fusion G89.18 Acute postoperative pain Yesenia Martin is almost 4 weeks s/p C6/7 ACDF. Recovering as expected Medications: continue tylenol PRN; muscle relaxers PRN; no NSAIDs until 8 weeks post op Restrictions: continue BLTs RTW: 05/01 operations officer trust department (8am-12pm) and anticipate RTW multimedia journalist 05/[address] Kothari [letter sent via Putney; STD paperwork completed and will provider to [facility] to fax/email] Follow up: with Dr Kothari as scheduled 05/19 I spent a total of 22 minutes on the date of the service which included preparing to see the patient, [id number] patient care, completing clinical documentation, obtaining and/or reviewing separately obtained history, performing a medically appropriate examination, counseling and educating the pat ient/family/caregiver, and care coordination (not separately reported). Parker Leiva CNP documented in this encounterAdams County Regional Medical Center02-19-2024 Miscellaneous Notes* Telephone Encounter [...] cold fluids and eating soft foods. Caterina Hernandez, RN documented in this encounterAdams County Regional Medical Center02-16-2024 Miscellaneous Notes* Telephone Encounter - Alana Kay - 04/01/2023 11:23 AM EST Call received for Petey Kothari MD regarding Yesenia Frederic Martin. Caller: Self Patient Identified by Name and : Yes Reason for Call: Returning Phone call from Nurse Is there any additional information the provider should know? Yes She sent picture through mychart of her throat. Last Office Visit: 01/20/2023 Next scheduled appointment: 05/20/2023 Best number to reach caller: [phone] Best time to reach caller: anytime Is it OK to leave a detailed voice message? Yes Alana Kay * Telephone Encounter - Caterina Hernandez RN - 04/01/2023 11:11 AM EST Neuro SPINE CARE COORDINATION QUICK NOTE Called and left message for pt to return call. Pt is 4 days s/p C6-C7 ACDF on 03/28/23. documented in this encounterAdams County Regional Medical Center02-06-2024 History of Present illness Narrative* Harris Huntley LPN - 03/22/2023 10:12 AM EST Neuro SPINE CARE COORDINATION VSEA PRE-OP VISIT Met with patient via VSEA for pre op education. Given both written and verbal instructions re : Skin prep, wound care, pain management and post op restrictions. Provided to patient: [facility] Surgery Guide, Spine Surgery Pre/post op education. Yes Reviewed with patient to report to [facility] [employer] for surgery ? Yes. Reviewed with the patient to call [phone] the day before to get surgery report [...] answered. Harris Huntley LPN documented in this encounterAdams County Regional Medical Center01-26-2024 History and physical note * Fransisca Messer APRN.JAYANT - 03/11/2023 11:42 AM EST Images from the original note were not included. HISTORY AND PHYSICAL EXAMINATION SERVICE DATE: 03/11/2023 SERVICE TIME: 9:12 AM PRIMARY CARE PHYSICIAN: Josey Galan CNP Assessment Patient has the following [...] large neck Non-male patient STOP-Bang Score: 1 [id number] Score: Age: <65 Sex: female CHF history: No Hypertension history: No Stroke/TIA/thromboembolism history: No Vascular disease history: No Diabetes history: No [id number] Score: 1 ARISCAT Score: Age: <=50 Preoperative [...] and consent discussed: yes. Patient / Responsible Alliance Party agrees to proceed: yes Patient / [...] of Planned Surgery or Procedure: Answer: [facility] ECG COMPLETE Standing Status: Future Standing Expiration Date: 03/11/2024 REASON FOR VISIT: Yesenia Martin is a 42 year old female who is scheduled for Procedure(s): ARTHRODESIS ANT DISC PREP DISCECTOMY OSTEOPHYTECTOMY DECOMPRES S CORD/NERVE ROOT C' BELOW C2 (N/A) ANTERIOR INSTRUMENTATION 2 VERTEBRAL SEGMENTS (N/A) at the request of Dr. Kothari, Petey Ramos MD for consultation. My final recommendation [...] COVID-19 Immunization Status Overdue - Covid-19 Vaccine ( season) Overdue since 10/15/2022 11/21/2020 Imm Admin: COVID-19 original vaccine, age 12+ yr, monovalent (PFIZER- BIONTECH - PURPLE TOP) 10/24/2020 Imm Admin: COVID-19 original vaccine, age 12+ yr, monovalent (PFIZER- BIONTECH - PURPLE TOP) CHIEF COMPLAINT: Pre-op exam HPI: Yesenia Martin is a 42 year old seen for PAC due to scheduled above surgery because of a herniated disc. 01/13/23, Dr. Kothari SUBJECTIVE HISTORY OF PRESENT ILLNESS: Yesenia Martin is a 42 year old female presenting with spouse. Pre-op left cervical radic sx PREVIOUS SPINAL SURGERY: 06/2019 C5/6 left sided ADR with [facility] Recalls 6-12 months post op fell [...] Hx diabetes: : No. Last HgBA1C HBA1C, [place] (%) Date Value 03/01/2011 5.4 Nicotine status: [...] analgesics as needed). Negative for: cerebral palsy, MUSHROOM PRESS OPERATOR tumor, dementia, impaired sensorium, multiple sclerosis, Parkinson's disease, peripheral neuropathy, seizures, TIA and strokes. Respiratory: +former social smoker. No history of current cough or dyspnea, or pneumonia in the past 6 weeks. No history of respiratory/pulmonary symptoms or problems. Cardiovascular: No history of HTN requiring medication, no history of angina, CHF, HI, cardiac surgery or stents. Denies rest pain, [...] > 1 time per night or hematuria. INSTRUCTOR LOOPING: Negative for abnormal vaginal bleeding, abnormal vaginal [...] Paternal Grandfather Ischemic Heart Disease Paternal Grandfather HI and CVA Breast Cancer Maternal Aunt dx age 40's Colon Cancer Paternal Aunt dx age 30's Cancer Other cousin-uterine cancer other (migraine) Brother Cervical Cancer Other maternal cousin Social History Tobacco Use Smoking status: Former Packs/day: 0.25 Years: 8.00 Additional pack years: 0.00 Total pack years: 2.00 Types: Cigarettes Quit date: 2018 Years since quittin.0 Smokeless tobacco: Never Tobacco [...] ABSCREEN No results within date range. HBA1C, [place] (%) Date Value 03/01/2011 5.4 Recent Results (from the past 8760 hour(s)) ECG COMPLETE Collection Time: 03/11/23 12:44 PM Result Value Ventricular Rate 66 Atrial Rate 66 P-R Interval 122 QRS Duration 82 QT Interval 388 QTC Calculation (Bazett) 406 Calculated P [place] 67 Calculated R [place] 54 Calculated T [place] 42 Impression NORMAL SINUS RHYTHM NORMAL ECG No results found for this or any previous visit (from the past 71084 hour(s)). Instructions Given to Patient: Instructions located in the after visit summary. Patient given verbal and written preop instructions and voices comprehension and compliance. SIGNATURE: Fransisca Messer APRN.CNP PATIENT NAME: Yesenia Martin DATE: March 11, 2023 TIME: 11:42 AM PAGER/CONTACT #: documented in this encounterAdams County Regional Medical Center01-26-2024 Instructions* Patient Instructions* Fransisca Messer APRN.CNP - 03/11/2023 11:41 AM EST PATIENT PREOPERATIVE INSTRUCTIONS No ref. provider found has scheduled you for your procedure at this surgery center: [facility] Scheduling Office: [phone] --[address] [place] [address]. Please read below carefully for your personalized [...] Procedures: - YOU MUST HAVE A RESPONSIBLE TELEPHONE INSTALLER TAKE YOU HOME. A FAITH HEALER OR SUB PLANT MANAGER CANNOT BE MADE A RESPONSIBLE TELEPHONE INSTALLER. - We recommend that a responsible person [...] call the Tuesday before. Your surgeon s receptionist scheduler will tell you what time to call the office. - If you have not reached the departmental receptionist scheduler by 5 P.M., call [phone] after 5 P.M. the day before your surgery. Please be aware that emergency situations arise, which may delay or change your surgical time. If this happens, we will notify you as soon as possible and regret any inconvenience. If you already have an Advance Directive, please fax a copy to [phone] or email to for it to be [...] day. Fransisca Messer APRN.JAYANT documented in this encounterAdams County Regional Medical Center12-06-2023 Miscellaneous Notes* Telephone Encounter - Caterina Hernandez RN - 01/19/2023 10:52 AM EST Neuro SPINE CARE COORDINATION SURGERY SCHEDULING Patient accepts surgery date of 03/28/[address] Kothari Planned procedure: C6-C7 ACDF Length of Surgery:2hrs Last Appointment w/ Surgeon: 01/13/2023 Needs f/u appt with surgeon: no HGBA1C: HBA1CJen (%) Date Value 03/01/2011 5.4 PACC questionnaire: [...] her Pre op appts: PACC: 03/11/23 at: [facility] Nurse Education: wk of 03/21/23 [...] Caterina Hernandez RN * Telephone Encounter - Amirah Orozco - 01/14/2023 3:31 PM EST pt would like to schedule surgery. Call back; [phone] documented in this encounterAdams County Regional Medical Center11-30-2023 Instructions* Patient Instructions* Parker Leiva, VENEER JOINTER RETURNER.MIDDLE SCHOOL TECHNOLOGY TEACHER - 01/13/2023 2:52 PM EST Have ENT consult report faxed to [phone] VALENTINA Diggs HOW TO SEND US YOUR IMAGES - CT cervical spine Contact the imaging facility where the images were completed and ask if they have PACs (picture archiving and communication system). If they have PACs, request them to send the images directly through their computer via PACs to [facility]. If the location who did your imaging does not have PACs, request a CD with the images. You can upload the images from the CD to [facility] via your home computer. To upload images to the secure [facility] website please click on the following link: [email or web address] and follow the instructions. The other option is to mail the images on CD WITH report for review to: Dr Corbin Kothari ATTN Amirah [address] Mailcode: [address] [place] [address] Once you have sent or uploaded the images, (after uploading, it takes 24-28 hours to be viewable tous), please notify office via phone [phone] or via JoyTunes that imaging has been sent so we know to look for it. documented in this encounterAdams County Regional Medical Center11-30-2023 History of Present illness Narrative* Petey Kothari MD - 01/13/2023 1:19 PM EST Images from the original note were not included. SPINE SURGERY NEW PATIENT This is an in person visit DATE OF SERVICE: January 13, 2023 This is an in-person visit. REFERRING PROVIDER: SELF SUBJECTIVE HISTORY OF PRESENT ILLNESS: Yesenia Martin is a 42 year old female presenting with spouse. Pre-op left cervical radic sx PREVIOUS SPINAL SURGERY: 06/2019 C5/6 left sided ADR with [facility] Recalls 6-12 months post op fell [...] status: non smoker Employment status: [employer] DERMATOMAL DISTRIBUTION: Left: C8 AMBULATORY STATUS: Independent [...] of neck surgery M54.12 Left cervical radiculopathy Yesenia Martin is a 42 year old female with CC of left cervical radiculopathy as well as RUE and BLE paraesthesias. 06/2019 c5/6 ADR with initial benefit. New MRI with C6/7 disc protrusion and severecord compression Parker Leiva APRN.MIDDLE SCHOOL TECHNOLOGY TEACHER I reviewed the information obtained and documented by the nurse practitioner. I examined the patient and evaluated all available films and pertinent documents. We discussed the case and I agree with the plans as outlined in this note. Yesenia Martin is clinically indicated and wishes to pursue Anterior Cervical Discectomy and Fusion at C6/7 The risks, benefits, and anticipated outcomes of the procedure/treatment/test, the alternatives to the procedure/treatment/test and their risks and benefits, and the roles and tasks of the personnel to be involved were discussed with the patient or the patient s personal rental sales representative. The patient has elected to schedule surgery at this time or intends to call the office with a surgical date. Shared decision making occurred while obtaining informed consent. Continue with CT tomorrow as scheduled and send for review Send OS ENT consult notes to assess if right sided approach is an option I spent a total of 45 minutes on the date of the service which included preparing to see the patient, knye-kj-rxhv patient care, completing clinical documentation, and counseling and educating the patient/family/caregiver. SIGNATURE: Petey Kothari MD PATIENT NAME: Yesenia Martin DATE: January 13, 2023 TIME: 1:19 PM PAGER: documented in this encounterAdams County Regional Medical Center11-21-2022 History of Present illness Narrative* Dave Sepulveda MD - 01/04/2022 8:11 AM EST Dave Sepulveda MD Department of Orthopaedics Orthopaedics [facility] [address] [facility] [address] Dept: [phone] Dept January 04, 2022 CHIEF COMPLAINT: Post [...] [Other] Dave Sepulveda MD documented in this encounterAdams County Regional Medical Center10-24-2022 History of Present illness Narrative* Sarah Wesley PA-C - 12/07/2021 9:03 AM EDT Sarah Wesley PA-C Department of Orthopaedics Orthopaedics [address] [facility] [address] Dept: [phone] Dept December 07, 2021 CHIEF COMPLAINT: Post [...] ulnar two digits. Imaging: Deferred today Ms. Yesenia Martin was advised as to contrast therapies and/or to take analgesics/anti-inflammatories as needed and all contraindications were reviewed. Supporting Information Below: Medications: Current Outpatient Medications Medication Sig MULTIVITAMIN ORAL Take by mouth once daily. No current facility-administered medications for this visit. Allergies: Cortisone and Seasonal [Other] This note was partially generated using Wire voice recognition system, and there may be [...] numbness in her fingers. documented in this encounterAdams County Regional Medical Center10-12-2022 NoteHNO ID: [id number] Author: GRAY Alves Service: ? 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 Confirmation received. Copy sent for scanning. * Telephone Encounter - Vandana Amador Ma - 11/18/2021 11:24 AM EDT Surgery has been scheduled as requested. [facility] paperwork completed and waiting for physician signature. * Telephone Encounter - Vandana Amador Ma - 11/16/2021 8:58 AM EDT Surgical request completed. Post op appointments have been scheduled and mailed to patient. * Telephone Encounter - Vandana Amador Ma - 11/16/2021 8:46 AM EDT Type of form: FMLA Form received via dropped off at appointment. When form is completed, Fax form to [facility] at [phone]. Form has been forwarded to nurse box for completion. Vandana Amador Ma * Telephone Encounter - Vandana Amador Ma - 11/16/2021 8:46 AM EDT Patient to be scheduled for left ulnar nerve decompression at [facility] on 11/25/2021. documented in this encounterAdams County Regional Medical Center10-05-2022 History and physical note * Bridgette Woods PA-C - 11/18/2021 7:50 PM EDT PREANESTHESIA CONSULT CLINIC This is a virtual visit. It required patient-provider interaction for the medical decision making as documented below. Patient has been identified by name and date of : Yes Reason for call: PACC visit Accompanied by: Self Patient name: Yesenia Martin Scheduled Surgery: left DECOMPRESSION NERVE ULNAR [...] Paternal Grandfather Ischemic Heart Disease Paternal Grandfather HI and CVA Breast Cancer Maternal Aunt dx age 40's Colon Cancer Paternal Aunt dx age 30's Cancer Other cousin-uterine cancer other (migraine) Brother Cervical Cancer Other maternal cousin Social History: Social History Tobacco Use Smoking status: Former Packs/day: 0.25 Years: 8.00 Pack years: 2.00 Types: Cigarettes Quit date: 2018 Years since quittin.7 Smokeless tobacco: Never Tobacco [...] fevers. Neuro: No history of TIA's, stroke, MUSHROOM PRESS OPERATOR tumor, impaired sensorium, hemiplegia, paraplegia or quadraplegia.+migraines Respiratory: No history of current cough or dyspnea, or pneumonia in the past 6 weeks. No history of respiratory/pulmonary symptoms or problems. Cardiovascular: No history of HTN requiring medication, no history of angina, CHF, HI, cardiac surgery or stents. Denies rest pain, gangrene or revascularization/amputation for PVD. No history of cardiovascular symptoms or problems. GI: No history of GI symptoms or problems. No history of esophageal varices, recent ascites, or ETOH greater than 2 drinks per day. : No history of dysuria, frequency or incontinence,, stones or chronic kidney disease INSTRUCTOR LOOPING: Negative for abnormal vaginal bleeding, abnormal vaginal [...] ABSCREEN No results within date range. HBA1C, [place] (%) Date Value 03/01/2011 5.4 No new [...] device. I spent more than 20 minutes kfqn-lz-cjnx with the patient and over half the time was devoted to counseling and/or coordination of care. SIGNATURE: Bridgette Woods PA-C PATIENT NAME: Yesenia Martin DATE: 11/18/2021 TIME: 7:49 PM PAGER/CONTACT #: documented in this encounterAdams County Regional Medical Center10-05-2022 Instructions* Patient Instructions* Bridgette Woods PA-C - 11/18/2021 7:50 PM EDT PATIENT PREOPERATIVE INSTRUCTIONS Dave Sepulveda MD has scheduled you for your procedure at this surgery center: [facility]: [phone] -- [address] [facility] [address]. Please read below carefully for your personalized [...] Procedures: - YOU MUST HAVE A RESPONSIBLE TELEPHONE INSTALLER TAKE YOU HOME. A FAITH HEALER OR SUB PLANT MANAGER CANNOT BE MADE A RESPONSIBLE TELEPHONE INSTALLER. - We recommend that a responsible person [...] Advance Directive, please fax a copy to [phone] or email to for it to be [...] day. Bridgette Woods PA-C documented in this encounterAdams County Regional Medical Center10-03-2022 History of Present illness Narrative* Sarah Wesley PA-C - 11/16/2021 8:55 AM EDT Sarah Wesley PA-C Department of Orthopaedics Orthopaedics [address] [facility] [address] Dept: [phone] Dept November 16, 2021 CHIEF COMPLAINT: Follow Up of the Left Elbow and Ultrasound results left elbow Ms. Yesenia Martin is a 40 year old female who presents to discuss the results of her left elbow ultrasound. For above the past year she has been having pain in the medial aspect of her left elbow and numbness in her pinky. Pain is worse when she is sitting at her desk working or at bedtime. She was seeing a provider at [facility] and did participate in nerve gliding exercises and nighttime splinting, neither which were helpful. She is status post C5-C6 disc replacement with the [facility] around 3 years ago. Prior to her [...] and wishes to pursue surgical intervention. Ms. Yesenia Martin was advised as to contrast therapies and/or to take analgesics/anti-inflammatories as needed and all contraindications were reviewed. OBJECTIVE: Ms. Yesenia Martin is a pleasant 40 year old [...] THE ULNAR NERVE AT THE CUBITAL TUNNEL. Pantry Attendant: PSCB Transcribe Date/Time: Oct 29 2021 7:50A Dictated [...] anxiety) This note was partially generated using Wire voice recognition system, and there may be [...] Wants to discuss surgery. documented in this encounterAdams County Regional Medical Center09-19-2022 Miscellaneous Notes* Telephone Encounter - Patricia Young [facility] - 11/02/2021 12:05 PM EDT Last read by Yesenia Martin at 3:03 PM on 10/30/2021. - patient was scheduled in [place] Thanks * Telephone Encounter - Sandy Hager - 10/30/2021 2:56 PM EDT Called and left VM for patient, also sent mychart asking her to call back to schedule. Thanks! documented in this encounterAdams County Regional Medical Center08-15-2022 History of Present illness Narrative* Sarah Wesley PA-C - 09/28/2021 1:32 PM EDT Sarah Wesley PA-C Department of Orthopaedics Orthopaedics [address] [facility] [address] Dept: [phone] Dept September 28, 2021 CHIEF COMPLAINT: New Patient and Pain of the Left Upper Arm Ms. Yesenia Martin is a 40 year old female she presents with a 6-month 1 year history of pain in her left medial elbow and numbness in her pinky. Pain is worse when she is sitting at her desk working and also at bedtime. She was seeing a provider at [facility] and did participate in nervegliding exercises and nighttime splinting, neither of which was helpful. The patient is status postC5/C6 disc replacement with the [facility] about 3 years ago. Prior to her [...] like the order to be faxed to [facility] as it is closer to her home. Ms. Yesenia Martin was advised as to contrast therapies and/or to take analgesics/anti-inflammatories as needed and all contraindications were reviewed. OBJECTIVE: Ms. Yesenia Martin is a pleasant 40 year old [...] anxiety) This note was partially generated using Wire voice recognition system, and there may be [...] coming from ulnar nerve. documented in this encounter[facility] Miscellaneous Notes* Telephone Encounter - Karuna Davis Ma - 09/23/2021 4:17 PM EDT Patient returned call and states she had an EMG at [facility] on 06/15/21 on her left elbow. and cervical MRI on 08/21/21. 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 Sent a request to [facility] Medical records. Patient aware if unable to obtain records she will need to contact them. * Telephone Encounter - Karuna Davis Ma - 09/23/2021 1:49 PM EDT Patient has appointment on Thursday 09/28 with Sarah for elbow and shoulder pain. Need to know which laterality she wants to be seen? Left message for patient to call office. documented in this encounterAd[facility] History of Past illness [...] of this encounter (statuses as of 09/23/2021) [facility] of Past illness [...] of this encounter (statuses as of 09/28/2021) [facility] of Past illness [...] of this encounter (statuses as of 11/02/2021) [facility] History of Past illness [...] of this encounter (statuses as of 11/16/2021) [facility] History of Past illness [...] of this encounter (statuses as of 11/19/2021) [facility] History of Past illness [...] of this encounter (statuses as of 11/19/2021) [facility] History of Past illness [...] of this encounter (statuses as of 11/24/2021) [facility] History of Past illness [...] of this encounter (statuses as of 12/07/2021) [facility] History of Past illness [...] of this encounter (statuses as of 12/11/2021) [facility] History of Past illness [...] of this encounter (statuses as of 01/26/2022) [facility] History of Past illness [...] of this encounter (statuses as of 03/05/2022) [facility] History of Past illness [...] of this encounter (statuses as of 01/15/2023) [facility] History of Past illness [...] of this encounter (statuses as of 01/19/2023) [facility] History of Past illness [...] of this encounter (statuses as of 03/17/2023) [facility] History of Past illness [...] of this encounter (statuses as of 03/22/2023) [facility] History of Past illness [...] of this encounter (statuses as of 04/01/2023) [facility] History of Past illness [...] of this encounter (statuses as of 04/04/2023) [facility] History of Past illness [...] of this encounter (statuses as of 04/13/2023) [facility] History of Past illness [...] of this encounter (statuses as of 04/22/2023) [facility] History of Past illness [...] of this encounter (statuses as of 05/20/2023) [facility] History of Past illness [...] of this encounter (statuses as of 05/20/2023) [facility] No data available for this section [facility] Evaluation note* Diagnosis Onset Date Resolution Status Ulnar nerve neuropathy acute [facility] Work Phone: evaluation note* Diagnosis Onset Date Resolution Status Ulnar nerve neuropathy acute C7 radiculopathy acute 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 [facility] Work Phone: evaluation note* Diagnosis 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 Numbness of left hand Left elbow pain Pain in joint, upper arm documented in this encounter [facility]* Diagnosis 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 Numbness of left hand Left elbow pain Pain in joint, upper arm Ulnar nerve entrapment at elbow, left documented in this encounter [facility]* Diagnosis Pre-op evaluation- Primary Preoperative examination, unspecified Ulnar nerve entrapment at elbow, left documented in this encounter [facility] [place] [facility]* Diagnosis Ulnar nerve entrapment at elbow, left- Primary Ulnar nerve entrapment at elbow, left [facility] encounter [facility]* Diagnosis Ulnar nerve entrapment at elbow, left- Primary documented in this encounter [facility]* Diagnosis Ulnar nerve entrapment at elbow, left- Primary documented in this encounter [facility]Evaluation noteNo assessment information availableWDayton [facility] Work Phone: evaluation note* Diagnosis Herniated nucleus pulposus, C6-7- Primary Displacement of cervical intervertebral disc without myelopathy History of neck surgery Personal history of surgery to other organs Left cervical radiculopathy Brachial neuritis or radiculitis nos documented in this encounter [facility] [place] [facility]* Diagnosis Pre-operative examination- Primary Preoperative examination, [...] or radiculitis nos documented [facility] this [facility] [place] [facility]* Diagnosis Preoperative examination- Primary Preoperative examination, unspecified Herniated nucleus pulposus, C6-7 Displacement of cervical intervertebral disc without myelopathy History of neck surgery Personal history of surgery to other organs Left cervical radiculopathy Brachial neuritis or radiculitis nos documented in this encounter [facility] [place] [facility]* Diagnosis S/P cervical spinal fusion Arthrodesis status Acute postoperative pain Other acute postoperative pain documented in this encounter [facility] [place] [facility]* Diagnosis S/P cervical spinal fusion- Primary Arthrodesis status [facility]* Diagnosis S/P cervical spinal fusion Arthrodesis status Acute postoperative pain Other acute postoperative pain documented in this encounter [facility]* Diagnosis S/P cervical spinal fusion- Primary Arthrodesis status [facility]* Diagnosis Acute cervical radiculopathy- Primary Brachial neuritis or radiculitis nos documented in this encounter [facility] [place] [facility]* Diagnosis S/P cervical spinal fusion- Primary Arthrodesis status [facility]* Diagnosis Acute cervical radiculopathy Brachial neuritis or radiculitis nos S/P cervical spinal fusion Arthrodesis status documented in this encounter [facility] [place] [facility]* Diagnosis S/P cervical spinal fusion- Primary Arthrodesis status documented [facility] this [facility]* Diagnosis Spinal stenosis of cervical region Spinal stenosis in cervical region S/P cervical spinal fusion Arthrodesis status S/P cervical disc replacement Bilateral hand numbness Disturbance of skin sensation Cervical disc disorder with radiculopathy Brachial neuritis or radiculitis nos documented in this encounter [facility] [place] [facility]* Diagnosis Acute pain of left shoulder- Primary Acute pain of left shoulder documented in this encounter [facility] [place] [facility]* Diagnosis Acute pain of left shoulder documented in this encounter [facility] [place] [facility]* Diagnosis Cervical spondylosis with myelopathy- Primary [...] of left shoulder documented in this encounter [facility] note* Diagnosis Ulnar neuropathy at elbow of left upper extremity Pre-operative examination- Primary Preoperative examination, unspecified Migraine, unspecified, without mention of intractable migraine without mention of status migrainosus Insomnia, unspecified type Former smoker Personal history of tobacco use, presenting hazards to health documented in this encounter [facility] [place] [facility]* Diagnosis Cervical spondylosis with myelopathy- Primary [...] unspecified headache type documented in this encounter [facility] note* Diagnosis Cervical spondylosis with myelopathy- Primary [...] nervous system, unspecified documented in this encounter [facility] Discharge instructionsAmbulatory Orders* PT Referral Location: None Selected [facility] Work Phone: Hospital Discharge instructionsAmbulatory Orders* Physical Therapy Referral Location: None Selected [facility] Work Phone: Hospital Discharge instructions No data available for this section [facility] Discharge instructionsAmbulatory Orders* Dermatology Location: None Selected [facility] Work Phone: Instructions* Name Dates Details How to access health [...] Instructions* Name Dates Details Patient Instructions Indication:Nonsmoker Start:20-Feb-2021 Instruction Type:Provider Instructions for Treatment How to Access Health Informa tion Online using Patient Portal and [employer] Apps Indication:Nonsmoker Start:20-Feb-2021 Instruction Type:Patient Education [...] Instructions* Name Dates Details Patient Instructions Indication:Nonsmoker Start:20-Feb-2021 Instruction Type:Provider Instructions for Treatment How to Access Health Informa tion Online using Patient Portal and [employer] Apps Indication:Nonsmoker Start:20-Feb-2021 Instruction Type:Patient Education [...] tion Online using Patient Portal and [employer] Apps Indication:Nonsmoker Start:06-Mar-2021 Instruction Type:Patient Education Patient Instructions Indication:Nonsmoker Start:20-Feb-2021 Instruction Type:Provider Instructions for Treatment How to Access Health Informa tion Online using Patient Portal and [employer] Apps Indication:Nonsmoker Start:20-Feb-2021 Instruction Type:Patient Education How [...] tion Online using Patient Portal and [employer]rd [employer] Apps Indication:Nonsmoker Start:20-Mar-2021 Instruction Type:Patient Education Patient Instructions Indication:Nonsmoker Start:06-Mar-2021 Instruction Type:Provider Instructions for Treatment How to Access Health Informa tion Online using Patient Portal and [employer] Apps Indication:Nonsmoker Start:06-Mar-2021 Instruction Type:Patient Education Patient Instructions Indication:Nonsmoker Start:20-Feb-2021 Instruction Type:Provider Instructions for Treatment How to Access Health Informa tion Online using Patient Portal and [employer] Apps Indication:Nonsmoker Start:20-Feb-2021 Instruction Type:Patient Education [...] tion Online using Patient Portal and [employer]rd [employer] Apps Indication:BMI 23.0-23.9, adult Start:17-Dec-2022 Instruction Type:Patient Education Patient Instructions Indication:Nonsmoker Start:20-Mar-2021 Instruction Type:Provider Instructions for Treatment How to Access Health Informa tion Online using Patient Portal and [employer]rd [employer] Apps Indication:Nonsmoker Start:20-Mar-2021 Instruction Type:Patient Education Patient Instructions Indication:Nonsmoker Start:06-Mar-2021 Instruction Type:Provider Instructions for Treatment How to Access Health Informa tion Online using Patient Portal and [employer]rd [employer] Apps Indication:Nonsmoker Start:06-Mar-2021 Instruction Type:Patient Education Patient Instructions Indication:Nonsmoker Start:20-Feb-2021 Instruction Type:Provider Instructions for Treatment How to Access Health Informa tion Online using Patient Portal and [employer]rd [employer] Apps Indication:Nonsmoker Start:20-Feb-2021 Instruction Type:Patient Education [...] Internal Medicine; [facility] Work Phone: progress note No data available for this section [facility] Progress note Author Ely Salas [facility] Note Date/Time November 02, 2024 10:42am [facility] [address] [place] [address] OFFICE VISIT Date of Service: 11/02/24 MR#: [id number] Acct: [id number] Name: YESENIA MARTIN Rep #: [id number] : 1980 Provider: RAJI Jung Age/Sex: 43/F Location[facility] Status: Signed Intake Vital Signs 07/31/24 17:28 09/13/24 10:38 Height 5 ft 2 in 5 ft 2 in Intake Visit Reasons: CERVICAL SPINE Chief Complaint: 3 month post-op Allergies cortisone Allergy (Intermediate, Verified 11/02/24 10:17) Rash Dressing: Non-Medicated (bandage) Allergy (Verified 11/02/24 10:17) Rash Medications ?Medication ?Instructions ?Recorded ?Confirmed ?Type duloxetine 30 mg capsule,delayed 30 mg PO QDAY 5 11/02/24 History release [facility] Medical History Wears glasses Alcohol [...] provided and the decisions made by me, RAJI Jung 11/02/24 1015. Part of today?s visit was documentedby Melissa GARRETT, acting as scribe. YESENIA MARTIN is a 43 year old F here today for 3 month post-op C4-5 cervical disc replacement, revision anterior approach dos: 07/31/24. She states that she is doing better and that physical therapy is helping with her strengthening. Shedoes have pain at time if she over does it. She does take Advil for pain as needed. She did recently see a neurologist regarding MS and goes for a follow-upMRI today. She was also put on Cymbalta for pain by her neurologist. Only been on for a week. She does continue to to have the numbness and tingling but her neurologist things that is coming from her MS. She sees Dr. Ambrose with [facility] Ortho Exam General General: Yes no acute distress Neurologic: Yes alert and Yes oriented x3 Psychologic: Yes reasonable and appropriate Spine SPINE TESTING CERVICAL THORACIC LUMBAR Musculoskeletal Strength 0=absent - 5=normal Details: Neurological exam of the upper extremities shows 5X5 power. Normal sensation across all dermatomes. Physical examination of the neck shows a well-healed midline incision. Coding Level of Care Code Off vis,est,level 3 Diagnoses S/P cervical disc replacement Z98.890 Cervical radiculopathy M54.12 Assessment and Plan Assessment and Plan (1) S/P cervical disc replacement: Status: Acute (2) Cervical radiculopathy: Orders: Orders Cerv Spine 2 or 3 Views Today Z98.890 - Other specified postprocedural states Plan Obtained to reviewed cervical x-rays today in the clinic. Independent interpretation of the x-rays was performed. X-rays show disc replacement prosthesis at C4-5 in good position. All other hardware appears to be in good position. The patient is now 3 months out C4-5 disc replacement with revision of prior hardware. The patient does continue to have bilateral numbness and tingling. She does believe that the surgery did help with some of the neck pain that she was experiencing. The patient is continuing to follow with neurology for evaluation of multiple sclerosis. Says that she is scheduled for an MRI later today for this evaluation. She recently has started Cymbalta for her symptoms without any significant improvement however it has been 1 week since she for started taking this medication. From our end, discussed that there are no more restrictions of bending lifting or twisting. Encouraged the patient to continueto do the stretches and exercises and the home exercise program from physical therapy. She will follow- up on an as-needed basis for any new or worsening issues. Recommended a follow-up at the 1 year maryann from her disc replacement inJune 2025. Patient is in agreement to the plan. 11/02/24 0521 <Electronically signed by Ely ALEGRIA> Date _ Ely ALEGRIA Cosigner Signature: Date (if applicable) CC: ~ [place] [employer] Work Phone: Reason for referral (narrative)* Diagnostic Procedure Only (Routine) - Pending Review Specialty Diagnoses / Procedures Referred By Tiffanie alfaro Referred To Contact US IMAGING Diagnoses Ulnar neuropathy at elbow of left upper extremity Procedures US ELBOW LEFT US LMTD JOINT/OTH NONVASC XTR STRUX R-T W/IMG Sarah Wesley PA-C [address] [place] [address] Us Imaging Referral ID Status Reason Start Date Expiration Date Visits Requested Visits Authorized [id number] Pending Review Auto-Generat ed Referral 09/28/2021 10/28/2022 1 1 [facility] for referral (narrative)* Outpatient Procedure (Routine) - Pending Review Specialty Diagnoses / Procedures Referred By Contac t Referred To Contact [facility] Diagnoses Pre-operative examination Procedures ECG COMPLETE ECG ROUTINE ECG W/LEAST 12 LDS W/I&R Fransisca Messer APRN.CNP [address] [place] [address] [facility] [address] [place] [address] Referral ID Status Reason Start Date Expiration Date Visits Requested Visits Authorized [id number] Pending Review Auto-Generat ed Referral 03/11/2023 03/10/2024 1 1 [facility] for referral (narrative)* Diagnostic Procedure Only (Routine) - Pending Review Specialty Diagnoses / Procedures Referred By Contac t Referred To Contact XR IMAGING Diagnoses S/P cervical spinal fusion Procedures XR CERV GENERAL 2V AP/LAT RADEX SPINE CERVICAL 2 OR 3 VIEWS Petey Kothari MD [address] [facility] [address] [place] [address] [place] [address] Referral ID Status Reason Start Date Expiration Date Visits Requested Visits Authorized [id number] Pending Review Auto-Generat ed Referral 05/20/2023 06/18/2024 1 1 * Physical Therapy (Routine) - Authorized Specialty Diagnoses / Procedures Referred By Contac t Referred To Contact [facility] Diagnoses S/P cervical spinal fusion Procedures CONSULT TO PHYSICAL THERAPY PHYSICAL THERAPY EVALUATION HIGH COMPLEX 45 MINS Petey Kothari MD [address] [facility] [address] [place] [address] [facility] [place] [address] [place] [address] Referral ID Status Reason Start Date Expiration Date Visits Requested Visits Authorized [id number] Authorized Auto-Generat ed Referral 02/14/2023 02/14/2024 30 30 [facility] for referral (narrative)* Diagnostic Procedure Only (Urgent) - Closed Specialty Diagnoses / Procedures Referred By Tiffanie t Referred To Contact XR IMAGING Diagnoses Acute pain of left shoulder Procedures XR SHOULDER GENERAL 3V OR MORE AP/TRUE AP/OTHER LEFT RADEX SHOULDER COMPLETE MINIMUM 2 VIEWS Coretta Murrell, MISSAEL.[employer]LE [employer]CHO[employer] TECHNOLOGY TEACHER [address] [place] [address] X[facility] Imaging [id number] Referral ID Status Reason Start Date Expiration Date V isits Requested Visits Authorized [id number] Closed Auto-Generate d Referral 08/04/2023 09/02/2024 1 1 Electronically signed by Coretta Murrell VENEER JOINTER RETURNER.MIDDLE SCHOOL TECHNOLOGY TEACHER at 08/04/2023 8:20 AM EDT [facility] for referral (narrative)* Diagnostic Procedure Only (Routine) - Closed Specialty Diagnoses / Procedures Referred By Contwilmer t Referred To Contact US IMAGING Diagnoses Ulnar neuropathy at elbow of left upper extremity Procedures US ELBOW LEFT US LMTD JOINT/OTH NONVASC XTR STRUX R-T W/YUNIG Sarah Wesley PA-C [address] [place] [address] Us Imaging [id number] Referral ID Status Reason Start Date Expiration Date V isits Requested Visits Authorized [id number] Closed Auto-Generate d Referral 09/28/2021 10/28/2022 1 1 [facility] for referral (narrative)No reason for referral information availableWDayton [facility] Work Phone: Reason for visit Narrative* Diagnostic Procedure Only (Routine) - Closed Specialty Diagnoses / Procedures Referred By Contac t Referred To Contact XR IMAGING Diagnoses Acute cervical radiculopathy S/P cervical spinal fusion Procedures XR CERV OTHER 4V AP/LAT/FLX/EXT RADEX SPINE CERVICAL 4 OR 5 VIEWS Parker Leiva, VENEER JOINTER RETURNER.[employer]CHO[employer] TECHNOLOGY TEACHER [address] [place] [address] Xr Imaging [place] [address] Referral ID Status Reason Start Date Expiration Date V isits Requested Visits Authorized [id number] Closed Auto-Generate d Referral 06/17/2023 07/16/2024 1 1 [facility] for visit Narrative* Diagnostic Procedure Only (Urgent) - Closed Specialty Diagnoses / Procedures Referred By Contac t Referred To Contact XR IMAGING Diagnoses Acute pain of left shoulder Procedures XR SHOULDER GENERAL 3V OR MORE AP/TRUE AP/OTHER LEFT RADEX SHOULDER COMPLETE MINIMUM 2 VIEWS Coretta Murrell, VENEER JOINTER RETURNER.[employer]CHO[employer] TECHNOLOGY TEACHER [address] [place] [address] Xr Imaging [place] [address] Referral ID Status Reason Start Date Expiration Date V isits Requested Visits Authorized [id number] Closed Auto-Generate d Referral 08/04/2023 09/02/2024 1 1 [facility] for visit Narrative* Diagnostic Procedure Only (Routine) - Closed Specialty Diagnoses / Procedures Referred By Contac t Referred To Contact US IMAGING Diagnoses Ulnar neuropathy at elbow of left upper extremity Procedures US ELBOW LEFT US LMTD JOINT/OTH NONVASC XTR STRUX R-T W/IMG Sarah Wesley PA-C [address] [place] [address] Us Imaging [place] [address] Referral ID Status Reason Start Date Expiration Date V isits Requested Visits Authorized [id number] Closed Auto-Generate d Referral 09/28/2021 10/28/2022 1 1 [facility] for visit Narrative* MRI/CT (Routine) - Closed Specialty Diagnoses / Procedures Referred By Contac t Referred To Contact MR IMAGING Diagnoses Demyelinating disease of central nervous system (HCC) Procedures MRI THORACIC SPINE WO/W IVCON MRI SPINAL CANAL THORACIC W/O & W/CONTR MATRL Ramón Orellana MD [address] [place] [address] Phone: tel: fax: [place] [address] Referral ID Status Reason Start Date Expiration Date V isits Requested Visits Authorized [id number] Closed Auto-Generate d Referral 05/11/2024 06/10/2025 1 1 [facility] Family History No Family [...] No October 01 8 3:50pm Power of Engineering Librarian No October 01, 2 018 3:50pm Advance Directive Response Recorded Date/ Time Advance Directives No March 19, 2015 11:18am Living Will No October 01 8 2:50pm Power of Engineering Librarian No October 01 018 2:50pm Advance Directive Response Recorded Date/ Time Advance Directives No March 19, 2015 12:18pm Advance Directive Response Recorded Date/ Time Do you have a Healthcare Power of Engineering Librarian? No July 31, 2024 5:28pm Advance Directives No March 19, 2015 12:18pm Advance Directive Response Recorded Date/ Time Advance Directives No September 13 10:38am Do you have a Healthcare Power of Engineering Librarian? No July 31, 2024 5:28pm Chief Complaint and Reason for Visit Chief [...] of nervous system May 07, 2024 7:34am 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 SENT May 18, 2024 [...] cervical disc replacement June 22 025 9:23am Chief Complaint Admit Date NUMBNESS EXTREMITIES AND FACE HX OF NECK SX April 05, 2024 3:24pm Other disorders of nervous system May 07, 2024 7:34am 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 SENT May 18, 2024 [...] Pre-op exam July 11, 2024 11:23 am Chief Complaint Admit Date NUMBNESS EXTREMITIES AND FACE HX OF NECK SX April 05, 2024 3:24pm Other disorders of nervous system May 07, 2024 7:34am 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 SENT May 18, 2024 9:1 8am 2 mo fu June 01, 2024 9:2 7am CERVICAL SPINE June 22, 2024 9:23am Room 1 June 22, 2024 9:47am ACUTE SURG CLEARANCE July 11, 2024 11:2 3am PREOP July 19, 2024 2:08p m cervical spine July 27, 2024 1:24 pm Cervical Disc replacement C4-5, possible removal o July 31, 2024 11:06am Cervical Disc replacement C4-5, possible removal o July 31, 2024 2:12pm Cervical Disc replacement C4-5, possible removal o July 31, 2024 5:37pm Cervical Disc replacement C4-5, possible removal o August 01, 2024 7:53am Reason for Visit Admit Date Neurologic disorder [...] region June 9:23am S/P cervical disc replacement May 9th, 2 025 9:23am Pre-op exam July 11, 2024 11:23 am Cervical myelopathy with cervical radicu lopathy July 27, 2024 1:24pm Fusion of spine, cervical region July 272024 1:24pm S/P cervical disc replacement July 27, 2024 1:24pm S/P cervical disc replacement July 31, 2024 2:12pm Chief Complaint Admit Date Other disorders of nervous system May 07, 2024 7:34am 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 SENT May 18, 2024 9:1 8am 2 mo fu June 01, 2024 9:2 7am CERVICAL SPINE June 22, 2024 9:23am Room 1 June 22, 2024 9:47am ACUTE SURG CLEARANCE July 11, 2024 11:2 3am PREOP July 19, 2024 2:08p m cervical spine July 27, 2024 1:24 pm Cervical Disc replacement C4-5, possible removal o July 31, 2024 11:06am Cervical Disc replacement C4-5, possible removal o July 31, 2024 2:12pm Cervical Disc replacement C4-5, possible removal o July 31, 2024 5:37pm Cervical Disc replacement C4-5, possible removal o August 01, 2024 7:53am cervical spine August 16, 2024 9:59a m Room 4 August 16, 2024 10:11 am Reason for Visit Admit Date Encounter to establish care May 18 025 [...] disc replacement June 22, 2 025 9:23am Pre-op exam July 11, 2024 11:23 am Cervical myelopathy with cervical radicu lopathy July 27, 2024 1:24pm Fusion of spine, cervical region July 272024 1:24pm S/P cervical disc replacement July 27, 2024 1:24pm S/P cervical disc replacement July 31, 2024 2:12pm Reason for Visit Admit Date Encounter to establish care May 18, 2 [...] 9:23am S/P cervical disc replacement June 22, 025 9:23am Pre-op exam July 11, 2024 11:23 am Cervical myelopathy with cervical radicu lopathy July 27, 2024 1:24pm Fusion of spine, cervical region July 272024 1:24pm S/P cervical disc replacement July 27, 2024 1:24pm S/P cervical disc replacement July 31, 2024 2:12pm S/P cervical disc replacement August 16, 2024 9:59am Chief Complaint Admit Date 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 SENT May 18, 2024 9:1 8am 2 mo fu June 01, 2024 9:2 7am CERVICAL SPINE June 22, 2024 9:23am Room 1 June 22, 2024 9:47am ACUTE SURG CLEARANCE July 11, 2024 11:2 3am PREOP July 19, 2024 2:08p m cervical spine July 27, 2024 1:24 pm Cervical Disc replacement C4-5, possible removal o July 31, 2024 11:06am Cervical Disc replacement C4-5, possible removal o July 31, 2024 2:12pm Cervical Disc replacement C4-5, possible removal o July 31, 2024 5:37pm Cervical Disc replacement C4-5, possible removal o August 01, 2024 7:53am cervical spine August 16, 2024 9:59a m Room 4 August 16, 2024 10:11 am S/P CERVICAL DISC REPLACEMENT/RX HERE Ju ly 2024 3:30pm cervical spine September 13, 2024 9:56 am Room 4 September 13, 2024 10:0 5am Chief Complaint Admit Date PREOP July 19, 2024 2:08p m cervical spine July 27, 2024 1:24 pm Cervical Disc replacement C4-5, possible removal o July 31, 2024 11:06am Cervical Disc replacement C4-5, possible removal o July 31, 2024 2:12pm Cervical Disc replacement C4-5, possible removal o July 31, 2024 5:37pm cervical spine August 16, 2024 9:59a m Room 4 August 16, 2024 10:11 am cervical spine September 13, 2024 9:56 am Room 4 September 13, 2024 10:0 5am S/P CERVICAL DISC REPLACEMENT/RX HERE Se ptember 2024 3:00pm CERVICAL SPINE November 02, 2024 9:59am RM 2 November 02, 2024 10:21am Demyelinating disease of central nervous system, u November 02, 2024 2:44pm Reason for Visit Admit Date Cervical myelopathy with cervical radicu lopathy July 27, 2024 1:24pm Fusion of spine, cervical region July 272024 1:24pm S/P cervical disc replacement July 27, 2024 1:24pm S/P cervical disc replacement July 31, 2024 2:12pm S/P cervical disc replacement August 16, 2024 9:59am S/P cervical disc replacement September 13, 2024 9:56am S/P cervical disc replacement November 02, 2024 9:59am Cervical radiculopathy November 02, 2 025 9:59am Chief Complaint Admit Date PREOP July 19, 2024 2:08p m cervical spine July 27, 2024 1:24 pm Cervical Disc replacement C4-5, possible removal o July 31, 2024 11:06am Cervical Disc replacement C4-5, possible removal o July 31, 2024 2:12pm Cervical Disc replacement C4-5, possible removal o July 31, 2024 5:37pm cervical spine August 16, 2024 9:59a m Room 4 August 16, 2024 10:11 am cervical spine September 13, 2024 9:56 am Room 4 September 13, 2024 10:0 5am S/P CERVICAL DISC REPLACEMENT/RX HERE Se pt2024 3:00pm CERVICAL SPINE November 02, 2024 9:59am RM 2 November 02, 2024 10:21am Demyelinating disease of central nervous system, u November 02, 2024 2:44pm 6 M FU November 16, 2024 12 :46pm Reason for Referral Specialty Diagnoses / Procedures Referred By Contac t Referred To Contact MR IMAGING Diagnoses Spinal stenosis of cervical region S/P cervical spinal fusion S/P cervical disc replacement Bilateral hand numbness Cervical disc disorder with radiculopathy Procedures MRI CERVICAL SPINE WO IVCON MRI SPINAL CANAL CERVICAL W/O CONTRAST Parker Richardson S, VENEER JOINTER RETURNER.[employer] TECHN[employer]Y TEACHER [address] [place] [address] Mr [facility] [place] [address] Referral ID Status Reason Start Date Expiration Date V isits Requested Visits Authorized [id number] Closed Auto-Generate d Referral 06/27/2023 07/26/2024 1 1 Specialty Diagnoses / Procedures Referred By Contac t Referred To Contact Orthopedics Diagnoses Acute pain of left shoulder Procedures CONSULT PANEL TO ORTHOPAEDICS OFFICE/OUTPATIENT [facility] MDM 60 MINUTES Coretta Murrell, VENE[employer] JOINTER RETURNER.[employer] TECHN[employer]Y TEACHER [address] [place] [address] Referral ID Status Reason Start Date Expiration Date Visits Requested Visits Authorized [id number] Authorized PCP Requested Referral 08/04/2023 08/03/2024 1 1 Specialty Diagnoses / Procedures Referred By Contac t Referred To Contact XR IMAGING Diagnoses Acute pain of left shoulder Procedures XR SHOULDER GENERAL 3V OR MORE AP/TRUE AP/OTHER LEFT RADEX SHOULDER COMPLETE MINIMUM 2 VIEWS Coretta Murrell, [employer]ENE[employer] JOINTER RETURNER.[employer] TECHN[employer]Y TEACHER [address] [place] [address] [place] [address] Referral ID Status Reason Start Date Expiration Date V isits Requested Visits Authorized [id number] Closed Auto-Generate d Referral 08/04/2023 09/02/2024 1 1 Specialty Diagnoses / Procedures Referred By Contac t Referred To Contact [facility] Diagnoses Acute pain of left shoulder Procedures CONSULT TO PHYSICAL THERAPY PHYSICAL THERAPY EVALUATION HIGH COMPLEX 45 MINS Laney Stuart PA-C [address] [facility] [place] [address] [facility] [address] [place] [address] Referral ID Status Reason Start Date Expiration Date Visits Requested Visits Authorized [id number] Pending Review Auto-Generat ed Referral 08/04/2023 08/03/2024 1 1 Additional Source Comments INFORMATION SOURCE (unrecogn ized section and content) DATE CREATED AUTHOR 03/08/2020 [facility] DATE CREATED AUTHOR AUTHOR'S ORGANIZ ATION 12/12/2021 [facility] DATE CREATED AUTHOR AUTHOR'S ORGANIZ ATION 09/07/2024 [facility] DATE CREATED AUTHOR AUTHOR'S ORGANIZ ATION 12/11/2024 [facility] DATE CREATED AUTHOR AUTHOR'S ORGANIZ ATION 12/19/2024 [facility] Goals (unrecognized section and content) Goals may be documented in a n alternate sectionGoals may be documented in an alternate sectionGoals may be documented in an alternate sectionGoals may be documented in an alternate sectionGoals may be documented in an alternate sectionGoals may be documented in an alternate sectionGoals may be documented in an alternate sectionGoals may be documented in an alternate section No data available for this section No data available for this section Source Comments (unrecognize d section and content) In the event this informatio n is protected by the Federal Confidentiality of Alcohol and Drug Abuse Patient Records regulations: The Federal rules restrict any use of the information to criminally investigate or prosecute any alcohol or drug abuse patient.[facility] the event this information is protected by the Federal Confidentiality of Alcohol and Drug Abuse Patient Records regulations: The Federal rules restrict any use of the information to criminally investigate or prosecute any alcohol or drug abuse patient.[facility] CenterIn the event this information is protected by the Federal Confidentiality of Alcohol and Drug Abuse Patient Records regulations: The Federal rules restrict any use of the information to criminally investigate or prosecute any alcohol or drug abuse patient.[facility] CenterIn the event this information is protected by the Federal Confidentiality of Alcohol and Drug Abuse Patient Records regulations: The Federal rules restrict any use of the information to criminally investigate or prosecute any alcohol or drug abuse patient.[facility] CenterIn the event this information is protected by the Federal Confidentiality of Alcohol and Drug Abuse Patient Records regulations: The Federal rules restrict any use of the information to criminally investigate or prosecute any alcohol or drug abuse patient.[facility] CenterIn the event this information is protected by the Federal Confidentiality of Alcohol and Drug Abuse Patient Records regulations: The Federal rules restrict any use of the information to criminally investigate or prosecute any alcohol or drug abuse patient.[facility] the event this information is protected by the Federal Confidentiality of Alcohol and Drug Abuse Patient Records regulations: The Federal rules restrict any use of the information to criminally investigate or prosecute any alcohol or drug abuse patient.[facility] CenterIn the event this information is protected by the Federal Confidentiality of Alcohol and Drug Abuse Patient Records regulations: The Federal rules restrict any use of the information to criminally investigate or prosecute any alcohol or drug abuse patient.[facility] CenterIn the event this information is protected by the Federal Confidentiality of Alcohol and Drug Abuse Patient Records regulations: The Federal rules restrict any use of the information to criminally investigate or prosecute any alcohol or drug abuse patient.[facility] CenterIn the event this information is protected by the Federal Confidentiality of Alcohol and Drug Abuse Patient Records regulations: The Federal rules restrict any use of the information to criminally investigate or prosecute any alcohol or drug abuse patient.[facility] CenterIn the event this information is protected by the Federal Confidentiality of Alcohol and Drug Abuse Patient Records regulations: The Federal rules restrict any use of the information to criminally investigate or prosecute any alcohol or drug abuse patient.[facility] CenterIn the event this information is protected by the Federal Confidentiality of Alcohol and Drug Abuse Patient Records regulations: The Federal rules restrict any use of the information to criminally investigate or prosecute any alcohol or drug abuse patient.[facility] CenterIn the event this information is protected by the Federal Confidentiality of Alcohol and Drug Abuse Patient Records regulations: The Federal rules restrict any use of the information to criminally investigate or prosecute any alcohol or drug abuse patient.[facility] CenterIn the event this information is protected by the Federal Confidentiality of Alcohol and Drug Abuse Patient Records regulations: The Federal rules restrict any use of the information to criminally investigate or prosecute any alcohol or drug abuse patient.[facility] CenterIn the event this information is protected by the Federal Confidentiality of Alcohol and Drug Abuse Patient Records regulations: The Federal rules restrict any use of the information to criminally investigate or prosecute any alcohol or drug abuse patient.[facility] CenterIn the event this information is protected by the Federal Confidentiality of Alcohol and Drug Abuse Patient Records regulations: The Federal rules restrict any use of the information to criminally investigate or prosecute any alcohol or drug abuse patient.[facility] CenterIn the event this information is protected by the Federal Confidentiality of Alcohol and Drug Abuse Patient Records regulations: The Federal rules restrict any use of the information to criminally investigate or prosecute any alcohol or drug abuse patient.[facility] CenterIn the event this information is protected by the Federal Confidentiality of Alcohol and Drug Abuse Patient Records regulations: The Federal rules restrict any use of the information to criminally investigate or prosecute any alcohol or drug abuse patient.[facility] CenterIn the event this information is protected by the Federal Confidentiality of Alcohol and Drug Abuse Patient Records regulations: The Federal rules restrict any use of the information to criminally investigate or prosecute any alcohol or drug abuse patient.[facility] CenterIn the event this information is protected by the Federal Confidentiality of Alcohol and Drug Abuse Patient Records regulations: The Federal rules restrict any use of the information to criminally investigate or prosecute any alcohol or drug abuse patient.[facility] CenterIn the event this information is protected by the Federal Confidentiality of Alcohol and Drug Abuse Patient Records regulations: The Federal rules restrict any use of the information to criminally investigate or prosecute any alcohol or drug abuse patient.[facility] CenterIn the event this information is protected by the Federal Confidentiality of Alcohol and Drug Abuse Patient Records regulations: The Federal rules restrict any use of the information to criminally investigate or prosecute any alcohol or drug abuse patient.[facility] CenterIn the event this information is protected by the Federal Confidentiality of Alcohol and Drug Abuse Patient Records regulations: The Federal rules restrict any use of the information to criminally investigate or prosecute any alcohol or drug abuse patient.[facility] CenterIn the event this information is protected by the Federal Confidentiality of Alcohol and Drug Abuse Patient Records regulations: The Federal rules restrict any use of the information to criminally investigate or prosecute any alcohol or drug abuse patient.[facility] CenterIn the event this information is protected by the Federal Confidentiality of Alcohol and Drug Abuse Patient Records regulations: The Federal rules restrict any use of the information to criminally investigate or prosecute any alcohol or drug abuse patient.[facility] CenterIn the event this information is protected by the Federal Confidentiality of Alcohol and Drug Abuse Patient Records regulations: The Federal rules restrict any use of the information to criminally investigate or prosecute any alcohol or drug abuse patient.[facility] CenterIn the event this information is protected by the Federal Confidentiality of Alcohol and Drug Abuse Patient Records regulations: The Federal rules restrict any use of the information to criminally investigate or prosecute any alcohol or drug abuse patient.[facility] CenterIn the event this information is protected by the Federal Confidentiality of Alcohol and Drug Abuse Patient Records regulations: The Federal rules restrict any use of the information to criminally investigate or prosecute any alcohol or drug abuse patient.[facility] CenterIn the event this information is protected by the Federal Confidentiality of Alcohol and Drug Abuse Patient Records regulations: The Federal rules restrict any use of the information to criminally investigate or prosecute any alcohol or drug abuse patient.[facility] CenterIn the event this information is protected by the Federal Confidentiality of Alcohol and Drug Abuse Patient Records regulations: The Federal rules restrict any use of the information to criminally investigate or prosecute any alcohol or drug abuse patient.[facility] CenterIn the event this information is protected by the Federal Confidentiality of Alcohol and Drug Abuse Patient Records regulations: The Federal rules restrict any use of the information to criminally investigate or prosecute any alcohol or drug abuse patient.[facility] CenterIn the event this information is protected by the Federal Confidentiality of Alcohol and Drug Abuse Patient Records regulations: The Federal rules restrict any use of the information to criminally investigate or prosecute any alcohol or drug abuse patient.[facility] CenterIn the event this information is protected by the Federal Confidentiality of Alcohol and Drug Abuse Patient Records regulations: The Federal rules restrict any use of the information to criminally investigate or prosecute any alcohol or drug abuse patient.[facility] CenterIn the event this information is protected by the Federal Confidentiality of Alcohol and Drug Abuse Patient Records regulations: The Federal rules restrict any use of the information to criminally investigate or prosecute any alcohol or drug abuse patient.[facility] CenterIn the event this information is protected by the Federal Confidentiality of Alcohol and Drug Abuse Patient Records regulations: The Federal rules restrict any use of the information to criminally investigate or prosecute any alcohol or drug abuse patient.[facility] CenterIn the event this information is protected by the Federal Confidentiality of Alcohol and Drug Abuse Patient Records regulations: The Federal rules restrict any use of the information to criminally investigate or prosecute any alcohol or drug abuse patient.[facility] CenterIn the event this information is protected by the Federal Confidentiality of Alcohol and Drug Abuse Patient Records regulations: The Federal rules restrict any use of the information to criminally investigate or prosecute any alcohol or drug abuse patient.[facility] CenterIn the event this information is protected by the Federal Confidentiality of Alcohol and Drug Abuse Patient Records regulations: The Federal rules restrict any use of the information to criminally investigate or prosecute any alcohol or drug abuse patient.[facility] CenterIn the event this information is protected by the Federal Confidentiality of Alcohol and Drug Abuse Patient Records regulations: The Federal rules restrict any use of the information to criminally investigate or prosecute any alcohol or drug abuse patient.[facility] CenterIn the event this information is protected by the Federal Confidentiality of Alcohol and Drug Abuse Patient Records regulations: The Federal rules restrict any use of the information to criminally investigate or prosecute any alcohol or drug abuse patient.[facility] Reason for Visit (unrecogniz ed section and content) Reason Comments Physical Therapy Specialty Diagnoses / Procedures Referred By Luis Manuelac t Referred To Contact [facility] Diagnoses S/P cervical spinal fusion Procedures CONSULT TO PHYSICAL THERAPY PHYSICAL THERAPY EVALUATION HIGH COMPLEX 45 MINS Petey Kothari MD [address] [facility] [address] [place] [id number] [facility] [place] [address] [place] [address] Referral ID Status Reason Start Date Expiration Date Visits Requested Visits Authorized [id number] Authorized Auto-Generat ed Referral 02/14/2023 02/14/2024 30 [...] Op Specialty Diagnoses / Procedures Referred By Tiffanie t Referred To Contact Diagnoses S/P cervical spinal fusion Acute postoperative pain Procedures PROVIDER ORDERED FOLLOW UP OFFICE/OUTPATIENT NEW HIGH MDM 60 MINUTES Parker Leiva, VENEER JOINTER RETURNER.[employer] TECHNOLOGY TEACHER [address] [facility] [place] [id number] Referral ID Status Reason Start Date Expiration Date V isits Requested Visits Authorized [id number] Closed PCP Requested Referral 04/25/2023 04/10/2024 1 1 Reason Comments Follow Up Reason Comments PT Eval Specialty Diagnoses / Procedures Referred By Tiffanie t Referred To Contact MR IMAGING Diagnoses Spinal stenosis of cervical region S/P cervical spinal fusion S/P cervical disc replacement Bilateral hand numbness Cervical disc disorder with radiculopathy Procedures MRI CERVICAL SPINE WO IVCON MRI SPINAL CANAL CERVICAL W/O CONTRAST MATRL Parker Leiva, VENE[employer] JOINTER RETURNER.[employer] TECHNOLOGY TEACHER [address] [place] [address] Mr Imaging [place] [address] Referral ID Status Reason Start Date Expiration Date V isits Requested Visits Authorized [id number] Closed Auto-Generate d Referral 06/27/2023 07/26/2024 1 1 Reason Comments Neck Pain L side shoulder and upper back pain x6 days, had cervical fusion in March, bowling made pain worse Reason Comments New Specialty Diagnoses / Procedures Referred By Tiffanie t Referred To Contact Orthopedics Diagnoses Acute pain of left shoulder Procedures CONSULT PANEL TO ORTHOPAEDICS OFFICE/OUTPATIENT NEW HIGH MDM 60 MINUTES Coretta Murrell, VENEER JOINTER RETURNER.[employer] TECHNOLOGY TEACHER [address] [facility] [place] [facility] [place] [address] Referral ID Status Reason Start Date Expiration Date V isits Requested Visits Authorized [id number] Closed PCP Requested Referral 08/04/2023 08/03/2024 1 1 Reason Comments New Patient Evaluation Reason Comments Release Of Medical Records Imaging Care Teams (unrecognized sec tion and content) Social Group Worker Relationship Specialty Start Date End Date Josey Galan, [employer] TECHNOLOGY TEACHER [address] [facility] [address] [place] [address] PCP - General Internal Medicine 03/16/21 Social Group Worker Relationship Specialty Start Date End Date Josey Galan, [employer] TECHNOLOGY TEACHER [address] [facility] [address] [place] [address] PCP - General Internal Medicine 03/16/21 Social Group Worker Relationship Specialty Start Date End Date Josey Galan, [employer] TECHNOLOGY TEACHER [address] [facility] [address] [place] [address] PCP - General Internal Medicine 03/16/21 Social Group Worker Relationship Specialty Start Date End Date Josey Galan, [employer] TECHNOLOGY TEACHER [address] [facility] [address] [place] [address] PCP - General Internal Medicine 03/16/21 Social Group Worker Relationship Specialty Start Date End Date Josey Galan, [employer]CHO[employer] TECHNOLOGY TEACHER [address] [facility] [address] [place] [address] PCP - General Internal Medicine 03/16/21 Social Group Worker Relationship Specialty Start Date End Date Josey Galan, [employer] SCHO[employer] TECHNOLOGY TEACHER [address] [facility] [address] [place] [address] PCP - General Internal Medicine 03/16/21 Social Group Worker Relationship Specialty Start Date End Date Josey Galan CNP [address] [facility] [address] [place] [address] PCP - General Internal Medicine 03/16/21 Social Group Worker Relationship Specialty Start Date End Date Josey Galan CNP [address] [facility] [address] [place] [address] PCP - General Internal Medicine 03/16/21 Social Group Worker Relationship Specialty Start Date End Date Josey Galan CNP [address] [facility] [address] [place] [address] PCP - General Internal Medicine 03/16/21 Team [...] Active TONIA Landeros Primary Care Provider Active Social Group Worker Relationship Specialty Start Date End Date Josey Galan CNP [facility] [address] [place] [address] PCP - General Internal Medicine 03/16/21 Team Status: Inactive Member Role Status Dates TONIA Landeros Primary Care Provider Active DAVIE HE Attending Provider, Referring Provider MEG Perez Other Provider Active Social Group Worker Relationship Specialty Start Date End Date Josey Galan CNP [address] [facility] [address] [place] [address] PCP - General Internal Medicine 03/16/21 Social Group Worker Relationship Specialty Start Date End Date Josey Galan CNP [address] [facility] [address] [place] [address] PCP - General Internal Medicine 03/16/21 Social Group Worker Relationship Specialty Start Date End Date Josey Galan CNP [address] [facility] [address] [place] [address] PCP - General Internal Medicine 03/16/21 Social Group Worker Relationship Specialty Start Date End Date Josey Galan CNP [address] [facility] [address] [place] [address] PCP - General Internal Medicine 03/16/21 Social Group Worker Relationship Specialty Start Date End Date Josey Galan [employer] [address] [place] [address] [address] [place] [address] PCP - General Internal Medicine 03/16/21 Social Group Worker Relationship Specialty Start Date End Date Josey Galan [employer] [facility] [address] [place] [address] PCP - General Internal Medicine 03/16/21 Social Group Worker Relationship Specialty Start Date End Date Josey Galan [employer] [address] [facility] [address] [place] [address] PCP - General Internal Medicine 03/16/21 Social Group Worker Relationship Specialty Start Date End Date Josey Galan [employer] [facility] [address] [place] [address] PCP - General Internal Medicine 03/16/21 Social Group Worker Relationship Specialty Start Date End Date Josey Galan CNP [address] [facility] [address] [place] [address] PCP - General Internal Medicine 03/16/21 Social Group Worker Relationship Specialty Start Date End Date Josey Galan CNP [address] [facility] [address] [place] [address] PCP - General Internal Medicine 03/16/21 Social Group Worker Relationship Specialty Start Date End Date Josey Galan CNP [address] [facility] [address] [place] [address] PCP - General Internal Medicine 03/16/21 Social Group Worker Relationship Specialty Start Date End Date Josey Galan CNP [address] [facility] [address] [place] [address] PCP - General Internal Medicine 03/16/21 Social Group Worker Relationship Specialty Start Date End Date Josey Galan CNP [address] [facility] [address] [place] [address] PCP - General Internal Medicine 03/16/21 Social Group Worker Relationship Specialty Start Date End Date Josey Galan CNP [address] [facility] [address] [place] [address] PCP - General Internal Medicine 03/16/21 Social Group Worker Relationship Specialty Start Date End Date Giuseppe Ang CNP [address] [facility] [address] [place] [address] PCP - General Family Medicine 08/04/23 Social Group Worker Relationship Specialty Start Date End Date Giuseppe Ang CNP [address] [facility] [address] [place] [address] PCP - General Family Medicine 08/04/23 Social Group Worker Relationship Specialty Start Date End Date Giuseppe Ang CNP [address] [facility] [address] [place] [address] PCP - General Family Medicine 08/04/23 Social Group Worker Relationship Specialty Start Date End Date Giuseppe Ang CNP [address] [facility] [address] [place] [address] PCP - General Family Medicine 08/04/23 Social Group Worker Relationship Specialty Start Date End Date Josey Galan CNP [address] [facility] [address] [place] [address] PCP - General Internal Medicine 03/16/21 08/03/23 Giuseppe Ang CNP [address] [facility] [address] [place] [address] PCP - General Family Medicine 08/04/23 Social Group Worker Relationship Specialty Start Date End Date Giuseppe Ang CNP [address] [facility] [address] [place] [address] PCP - General Family Medicine 08/04/23 Social Group Worker Relationship Specialty Start Date End Date Giuseppe Ang CNP [address] [facility] [address] [place] [address] PCP - General Family Medicine 08/04/23 Social Group Worker Relationship Specialty Start Date End Date Josey Galan CNP [address] [facility] [address] [place] [address] PCP - General Internal Medicine 03/16/21 08/03/23 Social Group Worker Relationship Specialty Start Date End Date Josey Galan CNP [address] [facility] [address] [place], [place] [address] PCP - General Internal Medicine 03/16/21 Social Group Worker Relationship Specialty Start Date End Date Giuseppe Ang CNP [address] [facility] [address] [place], [place] [address] PCP - General Family Medicine 08/04/23 Social Group Worker Relationship Specialty Start Date End Date Giuseppe Ang CNP [address] [facility] [address] [place], [place] [id number] PCP - General Family Medicine 08/04/23 Team Status: Active Member Role Status Dates Giuspepe Ang NP-C Primary Care Provider Active Team Status: Inactive Member Role Status Dates LUIS LanderosC Primary Care Provider Active Start: April 05, [...] Status: Active Member Role Status Dates Dr. Carmen Jang MD Primary Care Provider Active Team Status: Inactive Member Role Status Dates TONIA Landeros Primary Care Provider Active Start: May 18, 2024 End: May 18, 2024 TONIA Landeros Referring Provider Active Start: May 18, 2024 End: May 18, 2024 Dr. Carmen Jang MD Attending Provider Active Start: May 18, 2024 End: May 18, 2024 Team Status: Inactive Member Role Status Dates Giuseppe Shana , 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-C Primary Care Provider Active Start: June 01, 2024 End: June 01, 2024 Giuseppe Ang 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-C Referring Provider Active Start: June 01, 2024 End: June 01, 2024 Dr. Narayan Connelly MD Attending Provider Active Start: June 01, 2024 End: June 01, 2024 Team Status: Inactive Member Role Status Dates Giuseppe Ang 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-C Primary Care Provider Active Start: June 22, 2024 End: June 22, 2024 Giuseppe Ang 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-C Referring Provider Active Start: June 22, 2024 End: June 22, 2024 Dr. Dg Díaz MD Attending Provider Active Start: June 22, 2024 End: June 22, 2024 Team Status: Inactive Member Role Status Dates iGuseppe Ang 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-C Primary Care Provider Active Start: June 22, 2024 End: June 22, 2024 Dr. Lennox Kincaid MD Attending Provider Active S tart: June 22, 2024 End: June 22, 2024 Team Status: Inactive Member Role Status Dates Dr. Carmen Jang MD Primary Care Provider Active Start: July 11, 2024 End: July 11, 2024 Dr. Carmen Jang MD Referring Provider Active Start: July 11, 2024 End: July 11, 2024 RAJI Doe Attending Provider Active St art: July 11, 2024 End: July 11, 2024 Team Status: Active Member Role Status Dates Dr. Carmen Jang MD Primary Care Provider Active Start: July 19, 2024 End: July 19, 2024 Dr. Mini Dailey MD Attending Provider Activ e Start: July 19, 2024 End: July 19, 2024 Dr. Dg Díaz MD Referring Provider Active Start: July 19, 2024 End: July 19, 2024 Team Status: Inactive Member Role Status Dates Giuseppe Ang NP-C Referring Provider Active Start: July 27, 2024 End: July 27, 2024 Dr. Dg Díaz MD Attending Provider Active Start: July 27, 2024 End: July 27, 2024 Dr. Carmen Jang MD Primary Care Provider Active Start: July 27, 2024 End: July 27, 2024 Team Status: Active Member Role Status Dates Dr. Dg Díaz MD Attending Provider Active Start: July 31, 2024 Dr. Dg Díaz MD Referring Provider Active Start: July 31, 2024 Dr. Dg íDaz MD Other Provider Active Star t: July 31, 2024 Dr. Carmen Jang MD Primary Care Provider Active Start: July 31, 2024 Team Status: Inactive Member Role Status Dates Dr. Dg Díaz MD Admit Provider Active Star t: July 31, 2024 End: August 01, 2024 Dr. Dg Díaz MD Attending Provider Active Start: July 31, 2024 End: August 01, 2024 Dr. Dg Díaz MD Referring Provider Active Start: July 31, 2024 End: August 01, 2024 Dr. Carmen Jang MD Primary Care Provider Active Start: July 31, 2024 End: August 01, 2024 Dr. Kaylynn Monterroso MD Other Provider Active St art: July 31, 2024 End: August 01, 2024 Dr. Abby Paz MD Other Provider Active St art: July 31, 2024 End: August 01, 2024 Dr. Malinda Clark , DO Other Provider Active Start: July 31, 2024 End: August 01, 2024 Dr. Malinda Johnson MD Other Provider Active Star t: July 31, 2024 End: August 01, 2024 Dr. Aurelio Mauro , Other Provider Active Star t: July 31, 2024 End: August 01, 2024 Dr. Brandon Jang MD Other Provider Active Sta rt: July 31, 2024 End: August 01, 2024 Dr. Narayan Rivera MD Other Provider Active S tart: July 31, 2024 End: August 01, 2024 Dr. Heidi Holbrook , Other Provider Active Start : July 31, 2024 End: August 01, 2024 Dr. Maryann Phan , Other Provider Active S tart: July 31, 2024 End: August 01, 2024 Dr. Jennifer Lazar MD Other Provider Active St art: July 31, 2024 End: August 01, 2024 Dr. Bello Mejía MD Other Provider Active Start: July 31, 2024 End: August 01, 2024 Dr. Mack Colon MD Other Provider Active Star t: July 31, 2024 End: August 01, 2024 Dr. Yana Sepulveda MD Other Provider Active Star t: July 31, 2024 End: August 01, 2024 Dr. Alexsander Rogers MD Other Provider Active S tart: July 31, 2024 End: August 01, 2024 RAJI Peraza Other Provider Active Start: July 31, 2024 End: August 01, 2024 Dr. Mando Haider MD Other Provider Active Sta rt: July 31, 2024 End: August 01, 2024 Team Status: Active Member Role Status Dates Dr. Dg Díaz MD Admit Provider Active Star t: July 31, 2024 Dr. Dg Díaz MD Referring Provider Active Start: July 31, 2024 Dr. Dg Díaz MD Other Provider Active Star t: July 31, 2024 Dr. Carmen Jang MD Primary Care Provider Active Start: July 31, 2024 Dr. Oneil Moses , DO Attending Provider Active Start: July 31, 2024 Dr. Oneil Moses , DO Other Provider Active Start: July 31, 2024 Dr. Kaylynn Monterroso MD Other Provider Active St art: July 31, 2024 Dr. Abby Paz MD Other Provider Active St art: July 31, 2024 Dr. Malinda Clark , Other Provider Active Start: July 31, 2024 Dr. Malinda Johnson MD Other Provider Active Star t: July 31, 2024 Dr. Aurelio Mauro , Other Provider Active Star t: July 31, 2024 Dr. Brandon Jang MD Other Provider Active Sta rt: July 31, 2024 Dr. Narayan Rivera MD Other Provider Active S tart: July 31, 2024 Dr. Heidi Holbrook , Other Provider Active Start : July 31, 2024 Dr. Maryann Phan , DO Other Provider Active S tart: July 31, 2024 Dr. Jennifer Lazar MD Other Provider Active St art: July 31, 2024 Dr. Bello Mejía MD Other Provider Active Start: July 31, 2024 Dr. Mando Haider MD Other Provider Active Sta rt: July 31, 2024 Dr. Mack Colon MD Other Provider Active Star t: July 31, 2024 Dr. Yana Sepulveda MD Other Provider Active Star t: July 31, 2024 Dr. Alexsander Rogers MD Other Provider Active S tart: July 31, 2024 RAJI Peraza Other Provider Active Start: July 31, 2024 Team Status: Active Member Role Status Dates Dr. Dg Díaz MD Admit Provider Active Star t: August 01, 2024 Dr. Dg Díaz MD Referring Provider Active Start: August 01, 2024 Dr. Dg Díaz MD Other Provider Active Star t: August 01, 2024 Dr. Carmen Jang MD Primary Care Provider Active Start: August 01, 2024 Dr. Kaylynn Monterroso MD Other Provider Active St art: August 01, 2024 Dr. Abby Paz MD Other Provider Active St art: August 01, 2024 Dr. Malinda Clark , Other Provider Active Start: August 01, 2024 Dr. Malinda Johnson MD Other Provider Active Star t: August 01, 2024 Dr. Aurelio Mauro , Other Provider Active Star t: August 01, 2024 Dr. Brandon Jang MD Other Provider Active Sta rt: August 01, 2024 Dr. Narayan Rivera MD Other Provider Active S tart: August 01, 2024 Dr. Heidi Holbrook DO Other Provider Active Start : August 01, 2024 Dr. Maryann Phan , Other Provider Active S tart: August 01, 2024 Dr. Jennifer Lazar MD Other Provider Active St art: August 01, 2024 Dr. Bello Mejía MD Other Provider Active Start: August 01, 2024 Dr. Mack Colon MD Other Provider Active Star t: August 01, 2024 Dr. Yana Sepulveda MD Other Provider Active Star t: August 01, 2024 Dr. Alexsander Rogers MD Other Provider Active S tart: August 01, 2024 RAJI Peraza Other Provider Active Start: August 01, 2024 Dr. Mando Haider MD Other Provider Active Sta rt: August 01, 2024 RAJI Jung Attending Provider Active Star t: August 01, 2024 Team Status: Active Member Role/Relationship Status Dates Dr. Carmen Jang MD Primary Care Provider Active Team Status: Inactive Member Role/Relationship Status Dates Giuseppe Ang , 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-C Primary Care Provider Active Start: May 07, 2024 End: May 07, 2024 Dr. Narayan Connelly MD Attending Provider Active Start: May 07, 2024 End: May 07, 2024 Dr. Narayan Connelly MD Referring Provider Active Start: May 07, 2024 End: May 07, 2024 Team Status: Inactive Member Role/Relationship Status Dates Giuseppe Ang , 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-C Primary Care Provider Active Start: May 18, 2024 End: May 18, 2024 Giuseppe Ang , 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-C Referring Provider Active Start: May 18, 2024 End: May 18, 2024 Dr. Carmen Jang MD Attending Provider Active Start: May 18, 2024 End: May 18, 2024 Team Status: Inactive Member Role/Relationship Status Dates Giuseppe Ang , 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-C Primary Care Provider Active Start: June 01, 2024 End: June 01, 2024 Giuseppe Ang , 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-C Referring Provider Active Start: June 01, 2024 End: June 01, 2024 Dr. Narayan Connelly MD Attending Provider Active Start: June 01, 2024 End: June 01, 2024 Team Status: Inactive Member Role/Relationship Status Dates Giuseppe Ang , 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-C Primary Care Provider Active Start: June 22, 2024 End: June 22, 2024 Giuseppe Ang , 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-C Referring Provider Active Start: June 22, 2024 End: June 22, 2024 Dr. Dg Díaz MD Attending Provider Active Start: June 22, 2024 End: June 22, 2024 Team Status: Inactive Member Role/Relationship Status Dates Giuseppe Ang , 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-C Primary Care Provider Active Start: June 22, 2024 End: June 22, 2024 Dr. Lennox Kincaid MD Attending Provider Active S tart: June 22, 2024 End: June 22, 2024 Team Status: Inactive Member Role/Relationship Status Dates Dr. Carmen Jang MD Primary Care Provider Active Start: July 11, 2024 End: July 11, 2024 Dr. Carmen Jang MD Referring Provider Active Start: July 11, 2024 End: July 11, 2024 RAJI Doe Attending Provider Active St art: July 11, 2024 End: July 11, 2024 Team Status: Active Member Role/Relationship Status Dates Dr. Carmen Jang MD Primary Care Provider Active Start: July 19, 2024 End: July 19, 2024 Dr. Mini Dailey MD Attending Provider Activ e Start: July 19, 2024 End: July 19, 2024 Dr. Dg Díaz MD Referring Provider Active Start: July 19, 2024 End: July 19, 2024 Team Status: Inactive Member Role/Relationship Status Dates TONIA Landeros Referring Provider Active Start: July 27, 2024 End: July 27, 2024 Dr. Dg Díaz MD Attending Provider Active Start: July 27, 2024 End: July 27, 2024 Dr. Carmen Jang MD Primary Care Provider Active Start: July 27, 2024 End: July 27, 2024 Team Status: Active Member Role/Relationship Status Dates Dr. Dg Díaz MD Attending Provider Active Start: July 31, 2024 Dr. Dg Díaz MD Referring Provider Active Start: July 31, 2024 Dr. Dg Díaz MD Other Provider Active Star t: July 31, 2024 Dr. Carmen Jang MD Primary Care Provider Active Start: July 31, 2024 Team Status: Inactive Member Role/Relationship Status Dates Dr. Dg Díaz MD Admit Provider Active Star t: July 31, 2024 End: August 01, 2024 Dr. Dg Díaz MD Attending Provider Active Start: July 31, 2024 End: August 01, 2024 Dr. Dg Díaz MD Referring Provider Active Start: July 31, 2024 End: August 01, 2024 Dr. Carmen Jang MD Primary Care Provider Active Start: July 31, 2024 End: August 01, 2024 Dr. Kaylynn Monterroso MD Other Provider Active St art: July 31, 2024 End: August 01, 2024 Dr. Abby Paz MD Other Provider Active St art: July 31, 2024 End: August 01, 2024 Dr. Malinda Clark , Other Provider Active Start: July 31, 2024 End: August 01, 2024 Dr. Malinda Johnson MD Other Provider Active Star t: July 31, 2024 End: August 01, 2024 Dr. Aurelio Mauro , Other Provider Active Star t: July 31, 2024 End: August 01, 2024 Dr. Brandon Jang MD Other Provider Active Sta rt: July 31, 2024 End: August 01, 2024 Dr. Narayan Rivera MD Other Provider Active S tart: July 31, 2024 End: August 01, 2024 Dr. Heidi Holbrook , Other Provider Active Start : July 31, 2024 End: August 01, 2024 Dr. Maryann Phan DO Other Provider Active S tart: July 31, 2024 End: August 01, 2024 Dr. Jennifer Lazar MD Other Provider Active St art: July 31, 2024 End: August 01, 2024 Dr. Bello Mejía MD Other Provider Active Start: July 31, 2024 End: August 01, 2024 Dr. Mack Colon MD Other Provider Active Star t: July 31, 2024 End: August 01, 2024 Dr. Yana Sepulveda MD Other Provider Active Star t: July 31, 2024 End: August 01, 2024 Dr. Alexsander Rogers MD Other Provider Active S tart: July 31, 2024 End: August 01, 2024 RAJI Peraza Other Provider Active Start: July 31, 2024 End: August 01, 2024 Dr. Mando Haider MD Other Provider Active Sta rt: July 31, 2024 End: August 01, 2024 Team Status: Active Member Role/Relationship Status Dates Dr. Dg Díaz MD Admit Provider Active Star t: July 31, 2024 Dr. Dg Díaz MD Referring Provider Active Start: July 31, 2024 Dr. Dg Díaz MD Other Provider Active Star t: July 31, 2024 Dr. Carmen Jang MD Primary Care Provider Active Start: July 31, 2024 Dr. Oneil Moses , Attending Provider Active Start: July 31, 2024 Dr. Oneil Moses , Other Provider Active Start: July 31, 2024 Dr. Kaylynn Monterroso MD Other Provider Active St art: July 31, 2024 Dr. Abby Paz MD Other Provider Active St art: July 31, 2024 Dr. Malinda Clark , Other Provider Active Start: July 31, 2024 Dr. Malinda Johnson MD Other Provider Active Star t: July 31, 2024 Dr. Aurelio Mauro , Other Provider Active Star t: July 31, 2024 Dr. Brandon Jang MD Other Provider Active Sta rt: July 31, 2024 Dr. Narayan Rivera MD Other Provider Active S tart: July 31, 2024 Dr. Heidi Holbrook DO Other Provider Active Start : July 31, 2024 Dr. Maryann Phan DO Other Provider Active S tart: July 31, 2024 Dr. Jennifer Lazar MD Other Provider Active St art: July 31, 2024 Dr. Bello Mejía MD Other Provider Active Start: July 31, 2024 Dr. Mando Haider MD Other Provider Active Sta rt: July 31, 2024 Dr. Mack Colon MD Other Provider Active Star t: July 31, 2024 Dr. Yana Sepulveda MD Other Provider Active Star t: July 31, 2024 Dr. Alexsander Rogers MD Other Provider Active S tart: July 31, 2024 RAJI Peraza Other Provider Active Start: July 31, 2024 Team Status: Active Member Role/Relationship Status Dates Dr. Dg Díaz MD Admit Provider Active Star t: August 01, 2024 Dr. Dg Díaz MD Referring Provider Active Start: August 01, 2024 Dr. Dg Díaz MD Other Provider Active Star t: August 01, 2024 Dr. Carmen Jang MD Primary Care Provider Active Start: August 01, 2024 Dr. Kaylynn Monterroso MD Other Provider Active St art: August 01, 2024 Dr. Abby Paz MD Other Provider Active St art: August 01, 2024 Dr. Malinda Clark , DO Other Provider Active Start: August 01, 2024 Dr. Malinda Johnson MD Other Provider Active Star t: August 01, 2024 Dr. Aurelio Mauro , DO Other Provider Active Star t: August 01, 2024 Dr. Brandon Jang MD Other Provider Active Sta rt: August 01, 2024 Dr. Narayan Rivera MD Other Provider Active S tart: August 01, 2024 Dr. Heidi Holbrook , Other Provider Active Start : August 01, 2024 Dr. Maryann Phan , Other Provider Active S tart: August 01, 2024 Dr. Jennifer Lazar MD Other Provider Active St art: August 01, 2024 Dr. Bello Mejía MD Other Provider Active Start: August 01, 2024 Dr. Mack Colon MD Other Provider Active Star t: August 01, 2024 Dr. Yana Sepulveda MD Other Provider Active Star t: August 01, 2024 Dr. Alexsander Rogers MD Other Provider Active S tart: August 01, 2024 RAJI Peraza Other Provider Active Start: August 01, 2024 Dr. Mando Haider MD Other Provider Active Sta rt: August 01, 2024 RAJI Jung Attending Provider Active Star t: August 01, 2024 Team Status: Active Member Role/Relationship Status Dates TONIA Landeros Referring Provider Active Start: August 16, 2024 Dr. Dg Díaz MD Attending Provider Active Start: August 16, 2024 Dr. Carmen Jang MD Primary Care Provider Active Start: August 16, 2024 Team Status: Inactive Member Role/Relationship Status Dates Dr. Carmen Jang MD Primary Care Provider Active Start: August 16, 2024 End: August 16, 2024 Dr. Lennox Kincaid MD Attending Provider Active S tart: August 16, 2024 End: August 16, 2024 Team Status: Inactive Member Role/Relationship Status Dates TONIA Landeros Referring Provider Active Start: August 16, 2024 End: August 16, 2024 Dr. Dg Díaz MD Attending Provider Active Start: August 16, 2024 End: August 16, 2024 Dr. Carmen Jang MD Primary Care Provider Active Start: August 16, 2024 End: August 16, 2024 Social Group Worker Relationship Specialty Start Date End Date Shana JAYANT Anna [address] [facility] [address] [place], [place] [id number] PCP - General Family Medicine 08/04/23 Narayan Connelly MD [address] [facility] [place] [place] [id number] Referring Neurology 06/06/24 Team Status: Inactive Member Role/Relationship Status Dates Giuseppe Ang 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-C Primary Care Provider Active Start: May 18, 2024 End: May 18, 2024 Giuseppe Ang 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-C Referring Provider Active Start: May 18, 2024 End: May 18, 2024 Dr. Carmen Jang MD Attending Provider Active Start: May 18, 2024 End: May 18, 2024 Team Status: Inactive Member Role/Relationship Status Dates Giuseppe Ang 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-C Primary Care Provider Active Start: June 01, 2024 End: June 01, 2024 Giuseppe Ang 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-C Referring Provider Active Start: June 01, 2024 End: June 01, 2024 Dr. Narayan Connelly MD Attending Provider Active Start: June 01, 2024 End: June 01, 2024 Team Status: Inactive Member Role/Relationship Status Dates Giuseppe Ang 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-C Primary Care Provider Active Start: June 22, 2024 End: June 22, 2024 Giuseppe Ang 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-C Referring Provider Active Start: June 22, 2024 End: June 22, 2024 Dr. Dg Díaz MD Attending Provider Active Start: June 22, 2024 End: June 22, 2024 Team Status: Inactive Member Role/Relationship Status Dates Giuseppe Ang 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-C Primary Care Provider Active Start: June 22, 2024 End: June 22, 2024 Dr. Lennox Kincaid MD Attending Provider Active S tart: June 22, 2024 End: June 22, 2024 Team Status: Inactive Member Role/Relationship Status Dates Dr. Carmen Jang MD Primary Care Provider Active Start: July 11, 2024 End: July 11, 2024 Dr. Carmen Jang MD Referring Provider Active Start: July 11, 2024 End: July 11, 2024 RAJI Doe Attending Provider Active St art: July 11, 2024 End: July 11, 2024 Team Status: Active Member Role/Relationship Status Dates Dr. Carmen Jang MD Primary Care Provider Active Start: July 19, 2024 End: July 19, 2024 Dr. Mini Dailey MD Attending Provider Activ e Start: July 19, 2024 End: July 19, 2024 Dr. Dg Díaz MD Referring Provider Active Start: July 19, 2024 End: July 19, 2024 Team Status: Inactive Member Role/Relationship Status Dates TONIA Landeros Referring Provider Active Start: July 27, 2024 End: July 27, 2024 Dr. Dg Díza MD Attending Provider Active Start: July 27, 2024 End: July 27, 2024 Dr. Carmen Jang MD Primary Care Provider Active Start: July 27, 2024 End: July 27, 2024 Team Status: Active Member Role/Relationship Status Dates Dr. Dg Díaz MD Attending Provider Active Start: July 31, 2024 Dr. Dg Díaz MD Referring Provider Active Start: July 31, 2024 Dr. Dg Díaz MD Other Provider Active Star t: July 31, 2024 Dr. Carmen Jang MD Primary Care Provider Active Start: July 31, 2024 Team Status: Inactive Member Role/Relationship Status Dates Dr. Dg Díaz MD Admit Provider Active Star t: July 31, 2024 End: August 01, 2024 Dr. Dg Díaz MD Attending Provider Active Start: July 31, 2024 End: August 01, 2024 Dr. Dg Díaz MD Referring Provider Active Start: July 31, 2024 End: August 01, 2024 Dr. Carmen Jang MD Primary Care Provider Active Start: July 31, 2024 End: August 01, 2024 Dr. Kaylynn Monterroso MD Other Provider Active St art: July 31, 2024 End: August 01, 2024 Dr. Abby Paz MD Other Provider Active St art: July 31, 2024 End: August 01, 2024 Dr. Malinda Clark , Other Provider Active Start: July 31, 2024 End: August 01, 2024 Dr. Malinda Johnson MD Other Provider Active Star t: July 31, 2024 End: August 01, 2024 Dr. Aurelio Mauro , Other Provider Active Star t: July 31, 2024 End: August 01, 2024 Dr. Brandon Jang MD Other Provider Active Sta rt: July 31, 2024 End: August 01, 2024 Dr. Narayan Rivera MD Other Provider Active S tart: July 31, 2024 End: August 01, 2024 Dr. Heidi Holbrook , Other Provider Active Start : July 31, 2024 End: August 01, 2024 Dr. Maryann Phan DO Other Provider Active S tart: July 31, 2024 End: August 01, 2024 Dr. Jennifer Lazar MD Other Provider Active St art: July 31, 2024 End: August 01, 2024 Dr. Bello Mejía MD Other Provider Active Start: July 31, 2024 End: August 01, 2024 Dr. Mack Colon MD Other Provider Active Star t: July 31, 2024 End: August 01, 2024 Dr. Yana Sepulveda MD Other Provider Active Star t: July 31, 2024 End: August 01, 2024 Dr. Alexsander Rogers MD Other Provider Active S tart: July 31, 2024 End: August 01, 2024 RAJI Peraza Other Provider Active Start: July 31, 2024 End: August 01, 2024 Dr. Mnado Haider MD Other Provider Active Sta rt: July 31, 2024 End: August 01, 2024 Team Status: Active Member Role/Relationship Status Dates Dr. Dg Díaz MD Admit Provider Active Star t: July 31, 2024 Dr. Dg Díaz MD Referring Provider Active Start: July 31, 2024 Dr. Dg Díaz MD Other Provider Active Star t: July 31, 2024 Dr. Carmen Jang MD Primary Care Provider Active Start: July 31, 2024 Dr. Oneil Moses , Attending Provider Active Start: July 31, 2024 Dr. Oneil Moses , DO Other Provider Active Start: July 31, 2024 Dr. Kaylynn Monterroso MD Other Provider Active St art: July 31, 2024 Dr. Abby Paz MD Other Provider Active St art: July 31, 2024 Dr. Malinda Clark , Other Provider Active Start: July 31, 2024 Dr. Malinda Johnson MD Other Provider Active Star t: July 31, 2024 Dr. Aurelio Mauro , Other Provider Active Star t: July 31, 2024 Dr. Brandon Jang MD Other Provider Active Sta rt: July 31, 2024 Dr. Narayan Rivera MD Other Provider Active S tart: July 31, 2024 Dr. Heidi Holbrook DO Other Provider Active Start : July 31, 2024 Dr. Maryann Phan , Other Provider Active S tart: July 31, 2024 Dr. Jennifer Lazar MD Other Provider Active St art: July 31, 2024 Dr. Bello Mejía MD Other Provider Active Start: July 31, 2024 Dr. Mando Haider MD Other Provider Active Sta rt: July 31, 2024 Dr. Mack Colon MD Other Provider Active Star t: July 31, 2024 Dr. Yana Sepulveda MD Other Provider Active Star t: July 31, 2024 Dr. Alexsander Rogers MD Other Provider Active S tart: July 31, 2024 Migue ALEGRIA PA Other Provider Active Start: July 31, 2024 Team Status: Active Member Role/Relationship Status Dates Dr. Dg Díaz MD Admit Provider Active Star t: August 01, 2024 Dr. Dg Díaz MD Referring Provider Active Start: August 01, 2024 Dr. Dg Díaz MD Other Provider Active Star t: August 01, 2024 Dr. Carmen Jang MD Primary Care Provider Active Start: August 01, 2024 Dr. Kaylynn Monterroso MD Other Provider Active St art: August 01, 2024 Dr. Abby Paz MD Other Provider Active St art: August 01, 2024 Dr. Malinda Clark , DO Other Provider Active Start: August 01, 2024 Dr. Malinda Johnson MD Other Provider Active Star t: August 01, 2024 Dr. Aurelio Mauro , DO Other Provider Active Star t: August 01, 2024 Dr. Brandon Jang MD Other Provider Active Sta rt: August 01, 2024 Dr. Narayan Rivera MD Other Provider Active S tart: August 01, 2024 Dr. Heidi Holbrook , Other Provider Active Start : August 01, 2024 Dr. Maryann Phan , DO Other Provider Active S tart: August 01, 2024 Dr. Jennifer Lazar MD Other Provider Active St art: August 01, 2024 Dr. Bello Mejía MD Other Provider Active Start: August 01, 2024 Dr. Mack Colon MD Other Provider Active Star t: August 01, 2024 Dr. Yana Sepulveda MD Other Provider Active Star t: August 01, 2024 Dr. Alexsander Rogers MD Other Provider Active S tart: August 01, 2024 RAJI Peraza Other Provider Active Start: August 01, 2024 Dr. Mando Haider MD Other Provider Active Sta rt: August 01, 2024 RAJI Jung Attending Provider Active Star t: August 01, 2024 Team Status: Inactive Member Role/Relationship Status Dates TONIA Landeros Referring Provider Active Start: August 16, 2024 End: August 16, 2024 Dr. Dg Díaz MD Attending Provider Active Start: August 16, 2024 End: August 16, 2024 Dr. Carmen Jang MD Primary Care Provider Active Start: August 16, 2024 End: August 16, 2024 Team Status: Inactive Member Role/Relationship Status Dates Dr. Carmen Jang MD Primary Care Provider Active Start: August 16, 2024 End: August 16, 2024 Dr. Lnenox Kincaid MD Attending Provider Active S tart: August 16, 2024 End: August 16, 2024 Team Status: Active Member Role/Relationship Status Dates Dr. Carmen Jang MD Primary Care Provider Active Start: September 05, 2024 Dr. Dg Díaz MD Attending Provider Active Start: September 05, 2024 Dr. Dg Díaz MD Referring Provider Active Start: September 05, 2024 Team Status: Active Member Role/Relationship Status Dates Giuseppe Ang NP-C Referring Provider Active Start: September 13, 2024 RAJI Jung Attending Provider Active Star t: September 13, 2024 Dr. Carmen Jang MD Primary Care Provider Active Start: September 13, 2024 Team Status: Inactive Member Role/Relationship Status Dates Dr. Carmen Jang MD Primary Care Provider Active Start: September 13, 2024 End: September 13, 2024 Dr. Lennox Kincaid MD Attending Provider Active S tart: September 13, 2024 End: September 13, 2024 Team Status: Inactive Member Role/Relationship Status Dates Giuseppe Ang NP-C Referring Provider Active Start: September 13, 2024 End: September 13, 2024 RAJI Jung Attending Provider Active Star t: September 13, 2024 End: September 13, 2024 Dr. Carmen Jang MD Primary Care Provider Active Start: September 13, 2024 End: September 13, 2024 Team Status: Active Member Role/Relationship Status Dates Dr. Carmen Jang MD Primary care physician Activ e Team Status: Active Member Role/Relationship Status Dates Dr. Carmen Jang MD Primary care physician Activ e Start: July 19, 2024 End: July 19, 2024 Dr. Mini Dailey MD Attending physician Acti ve Start: July 19, 2024 End: July 19, 2024 Dr. Dg Díaz MD Referring Provider Active Start: July 19, 2024 End: July 19, 2024 Team Status: Inactive Member Role/Relationship Status Dates Giuseppe Ang NP-C Referring Provider Active Start: July 27, 2024 End: July 27, 2024 Dr. Dg Díaz MD Attending physician Active Start: July 27, 2024 End: July 27, 2024 Dr. Carmen Jang MD Primary care physician Activ e Start: July 27, 2024 End: July 27, 2024 Team Status: Active Member Role/Relationship Status Dates Dr. Dg Díaz MD Attending physician Active Start: July 31, 2024 Dr. Dg Díaz MD Referring Provider Active Start: July 31, 2024 Dr. Dg Daíz MD Nurse Practitioner Active Start: July 31, 2024 Dr. Carmen Jang MD Primary care physician Activ e Start: July 31, 2024 Team Status: Inactive Member Role/Relationship Status Dates Dr. Dg Díaz MD Admitting physician Active Start: July 31, 2024 End: August 01, 2024 Dr. Dg Díaz MD Attending physician Active Start: July 31, 2024 End: August 01, 2024 Dr. Dg Díaz MD Referring Provider Active Start: July 31, 2024 End: August 01, 2024 Dr. Carmen Jang MD Primary care physician Activ e Start: July 31, 2024 End: August 01, 2024 Dr. Kaylynn Monterroso MD Nurse Practitioner Active Start: July 31, 2024 End: August 01, 2024 Dr. Abby Paz MD Nurse Practitioner Active Start: July 31, 2024 End: August 01, 2024 Dr. Malinda Clark , Nurse Practitioner Active Start: July 31, 2024 End: August 01, 2024 Dr. Malinda Johnson MD Nurse Practitioner Active Start: July 31, 2024 End: August 01, 2024 Dr. Aurelio Mauro , Nurse Practitioner Active Start: July 31, 2024 End: August 01, 2024 Dr. Brandon Jang MD Nurse Practitioner Active Start: July 31, 2024 End: August 01, 2024 Dr. Narayan Rivera MD Nurse Practitioner Active Start: July 31, 2024 End: August 01, 2024 Dr. Heidi Holbrook , Nurse Practitioner Active S tart: July 31, 2024 End: August 01, 2024 Dr. Maryann Phan , Nurse Practitioner Active Start: July 31, 2024 End: August 01, 2024 Dr. Jennifer Lazar MD Nurse Practitioner Active Start: July 31, 2024 End: August 01, 2024 Dr. Bello Mejía MD Nurse Practitioner Active Start: July 31, 2024 End: August 01, 2024 Dr. Mack Colon MD Nurse Practitioner Active Start: July 31, 2024 End: August 01, 2024 Dr. Yana Sepulveda MD Nurse Practitioner Active Start: July 31, 2024 End: August 01, 2024 Dr. Alexsander Rogers MD Nurse Practitioner Active Start: July 31, 2024 End: August 01, 2024 RAJI Peraza Nurse Practitioner Active Sta rt: July 31, 2024 End: August 01, 2024 Dr. Mando Haider MD Nurse Practitioner Active Start: July 31, 2024 End: August 01, 2024 RAJI Jung Attending physician Active Sta rt: July 31, 2024 Team Status: Active Member Role/Relationship Status Dates Dr. Dg Díaz MD Admitting physician Active Start: July 31, 2024 Dr. Dg Díaz MD Referring Provider Active Start: July 31, 2024 Dr. Dg Díaz MD Nurse Practitioner Active Start: July 31, 2024 Dr. Carmen Jang MD Primary care physician Activ e Start: July 31, 2024 Dr. Oneil Moses , Attending physician Activ e Start: July 31, 2024 Dr. Oneil Moses , Nurse Practitioner Active Start: July 31, 2024 Dr. Kaylynn Monterroso MD Nurse Practitioner Active Start: July 31, 2024 Dr. Abby Paz MD Nurse Practitioner Active Start: July 31, 2024 Dr. Malinda Clark , Nurse Practitioner Active Start: July 31, 2024 Dr. Malinda Johnson MD Nurse Practitioner Active Start: July 31, 2024 Dr. Aurelio Mauro , DO Nurse Practitioner Active Start: July 31, 2024 Dr. Brandon Jang MD Nurse Practitioner Active Start: July 31, 2024 Dr. Narayan Rivera MD Nurse Practitioner Active Start: July 31, 2024 Dr. Heidi Holbrook , Nurse Practitioner Active S tart: July 31, 2024 Dr. Maryann Phan , Nurse Practitioner Active Start: July 31, 2024 Dr. Jennifer Lazar MD Nurse Practitioner Active Start: July 31, 2024 Dr. Bello Mejía MD Nurse Practitioner Active Start: July 31, 2024 Dr. Mando Haider MD Nurse Practitioner Active Start: July 31, 2024 Dr. Mack Colon MD Nurse Practitioner Active Start: July 31, 2024 Dr. Yana Sepulveda MD Nurse Practitioner Active Start: July 31, 2024 Dr. Alexsander Rogers MD Nurse Practitioner Active Start: July 31, 2024 RAJI Peraza Nurse Practitioner Active Sta rt: July 31, 2024 Team Status: Inactive Member Role/Relationship Status Dates Giuseppe Ang 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-C Referring Provider Active Start: August 16, 2024 End: August 16, 2024 Dr. Dg Díaz MD Attending physician Active Start: August 16, 2024 End: August 16, 2024 Dr. Carmen Jang MD Primary care physician Activ e Start: August 16, 2024 End: August 16, 2024 Team Status: Inactive Member Role/Relationship Status Dates Dr. Carmen Jang MD Primary care physician Activ e Start: August 16, 2024 End: August 16, 2024 Dr. Lennox Kincaid MD Attending physician Active Start: August 16, 2024 End: August 16, 2024 Team Status: Inactive Member Role/Relationship Status Dates Giuseppe Ang 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-C Referring Provider Active Start: September 13, 2024 End: September 13, 2024 RAJI Jung Attending physician Active Sta rt: September 13, 2024 End: September 13, 2024 Dr. Carmen Jang MD Primary care physician Activ e Start: September 13, 2024 End: September 13, 2024 Team Status: Inactive Member Role/Relationship Status Dates Dr. Carmen Jang MD Primary care physician Activ e Start: September 13, 2024 End: September 13, 2024 Dr. Lennox Kincaid MD Attending physician Active Start: September 13, 2024 End: September 13, 2024 Team Status: Active Member Role/Relationship Status Dates Dr. Carmen Jang MD Primary care physician Activ e Start: October 17, 2024 Dr. Dg Díaz MD Attending physician Active Start: October 17, 2024 Dr. Dg Díaz MD Referring Provider Active Start: October 17, 2024 Team Status: Inactive Member Role/Relationship Status Dates Dr. Carmen Jang MD Primary care physician Activ e Start: November 02, 2024 End: November 02, 2024 Dr. Carmen Jang MD Referring Provider Active Start: November 02, 2024 End: November 02, 2024 RAJI Jung Attending physician Active Sta rt: November 02, 2024 End: November 02, 2024 Team Status: Inactive Member Role/Relationship Status Dates Dr. Carmen Jang MD Primary care physician Activ e Start: November 02, 2024 End: November 02, 2024 Dr. Lennox Kincaid MD Attending physician Active Start: November 02, 2024 End: November 02, 2024 Team Status: Active Member Role/Relationship Status Dates Dr. Carmen Jang MD Primary care physician Activ e Start: November 02, 2024 Dr. Gareth Ambrose MD Attending physician Active Start: November 02, 2024 Dr. Gareth Ambrose MD Referring Provider Active S tart: November 02, 2024 Team Status: Inactive Member Role/Relationship Status Dates Dr. Carmen Jang MD Primary care physician Activ e Start: November 02, 2024 End: November 02, 2024 Dr. Gareth Ambrose MD Attending physician Active Start: November 02, 2024 End: November 02, 2024 Dr. Gareth Ambrose MD Referring Provider Active S tart: November 02, 2024 End: November 02, 2024 Team Status: Inactive Member Role/Relationship Status Dates TONIA Landeros Referring Provider Active Start: November 16, 2024 End: November 16, 2024 Dr. Carmen Jang MD Primary care physician Activ e Start: November 16, 2024 End: November 16, 2024 Dr. Carmen Jang MD Attending physician Active Start: November 16, 2024 End: November 16, 2024 FOR RECORDS PERTAINING TO PATIENTS WHO [...] BE BASED ON THE PRIMARY CLINICAL RECORDS. [employer] [facility]. provides no warranty or guarantee of the accuracy or completeness of information in this document.
== END | disposition home or self-care (01) ==
LOC: MTRAD 16:48
PROVIDERS: PCP Internal Medicine; Referring Provider Physician Assistant; Visit Provider Physician Assistant
DX: M79.672 Pain in left foot (principal)
CPT/HCPCS: 73630